=== PATIENT | female | born 1955 | race Caucasian/White ===

== ENCOUNTER 2017-01-09 21:41 | Observation (INO) | payer MEDICARE ==
[2017-01-09] MEDS ORDERED: ASPIRIN 81 MG CHEW PO STA (21:59)
[2017-01-09] MEDS ORDERED: KETOROLAC 30 MG/ML 1 ML VIAL IVP STA (22:02)
--- NOTE | 2017-01-09 22:06 | ED ---
Chest Pain HPI - General Chief Complaint: Chest Pain Stated Complaint: chest pain Time Seen by Provider: 01/09/17 21:49 Source: patient, family, RN notes reviewed Mode of arrival: ambulatory Limitations: no limitations - History of Present Illness Initial Comments: Is a 61-year-old female with a prior history of suspected heart disease who does use nitroglycerin on occasion and states she had the onset yesterday about 12 noon of chest pain. She states was midsternal and nonradiating did recur today she did take some nitroglycerin and it did help. She currently states is pain-free when she had the pain was 10/10 in severity. She denies cough fevers chills nausea vomiting sweats or other symptoms right now. The patient also states that she follow through his ago she does have right-sided neck pain and left shoulder pain. She does not believe this is same pain. MD Complaint: chest pain, other - Related Data Home Medications Medication Instructions Recorded Confirmed Levothyroxine Sodium [Synthroid] 50 mcg PO QAM 06/01/15 01/09/17 Metoprolol Succinate (ER) [Toprol 12.5 mg PO QAM 06/01/15 01/09/17 XL] Omeprazole [PriLOSEC] 20 mg PO 1200 06/01/15 01/09/17 Sertraline [Zoloft] 200 mg PO QAM 06/01/15 01/09/17 Trihexyphenidyl HCl 2 mg PO HS 06/01/15 01/09/17 Fenofibrate [Lofibra] 160 mg PO QAM 10/22/15 01/09/17 Haloperidol [Haldol] 2.5 mg PO BID 10/22/15 01/09/17 LORazepam [Ativan] 1 mg PO TID 10/22/15 01/09/17 buPROPion SR [Wellbutrin SR] 150 mg PO BID 10/22/15 01/09/17 Paliperidone [Paliperidone ER] 6 mg PO QAM 03/17/16 01/09/17 Previous Rx's Medication Instructions Recorded Hydrocodone/Acetaminophen [[place] 1 each PO Q6HR PRN #15 tab 01/21/16 5-325] Ibuprofen [Motrin] 600 mg PO Q6HR PRN #20 tab 01/21/16 Allergies Allergy/AdvReac Type Severity Reaction Status Date / Time codeine Allergy Unknown Verified 01/09/17 21:47 Sulfa (Sulfonamide Allergy Unknown Verified 01/09/17 21:47 Antibiotics) sulfamethoxazole Allergy Unknown Verified 01/09/17 21:47 [From Bactrim] thioridazine [From Mellaril] Allergy Unknown Verified 01/09/17 21:48 trimethoprim [From Bactrim] Allergy Unknown Verified 01/09/17 21:47 Review of Systems ROS Statement: Those systems with pertinent positive or pertinent negative responses have been documented in the HPI. ROS Other: All systems not noted in ROS Statement are negative. EKG Findings - EKG Results: EKG: interpreted by ERMD, sinus rhythm (Sinus rhythm rate of 84. 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.NEUROPATHY; last seizure 5 years ago, has CPAP machine but does not use History of Any Multi-Drug Resistant Organisms: None Reported Past Surgical History: Section Additional Past Surgical History / Comment(s): Sx: nasal Past Anesthesia/Blood Transfusion Reactions: Motion Sickness Past Psychological History: ADD/ADHD, Anxiety, Bipolar, Depression, Panic Disorder, PTSD, Schizoaffective Disorder Smoking Status: Never smoker Past Alcohol Use History: Rare Past Drug Use History: None Reported - Past Family History Father Family Medical History: CVA/TIA Additional Family Medical History / Comment(s): SMOKED AND USED ETOH- AGE 78 - FROM STROKE Mother Additional Family Medical History / Comment(s): CRONIC BRONCHITIS.REMOVED PART OF ONE LUNG d/t the bronchitis infection General Exam - General Exam Comments Initial Comments: This a well-developed well-nourished awake alert anxious appearing female Limitations: no limitations General appearance: alert, anxious Head exam: Present: atraumatic, normocephalic, normal inspection Eye exam: Present: normal appearance, PERRL, EOMI. Absent: scleral icterus, conjunctival injection, periorbital swelling ENT exam: Present: normal exam, mucous membranes moist Neck exam: Present: normal inspection. Absent: tenderness, meningismus, lymphadenopathy Respiratory exam: Present: normal lung sounds bilaterally, chest wall tenderness. Absent: respiratory distress, wheezes, rales, rhonchi, stridor Cardiovascular Exam: Present: regular rate, normal rhythm, normal heart sounds. Absent: systolic murmur, diastolic murmur, rubs, gallop, clicks GI/Abdominal exam: Present: soft, normal bowel sounds. Absent: distended, tenderness, guarding, rebound, rigid Extremities exam: Present: normal inspection, full ROM, normal capillary refill. Absent: tenderness, pedal edema, joint swelling, calf tenderness Back exam: Present: normal inspection Neurological exam: Present: alert, oriented X3, CN II-XII intact Psychiatric exam: Present: normal affect, normal mood Skin exam: Present: warm, dry, intact, normal color. Absent: rash Course Vital Signs 01/09/17 01/09/17 21:44 23:11 Temperature 97.8 F Pulse Rate 86 79 Respiratory 20 16 Rate Blood Pressure 134/76 133/74 O2 Sat by Pulse 95 98 Oximetry - Reevaluation(s) Reevaluation #1: 01/09/17 23:29 Patient states her chest pain is not return when she still has some body pain. Chest Pain MDM - MDM Imaging study shows no acute findings. I did discuss the findings with patient family patient be admitted for evaluation of chest pain Critical Care Time Critical Care Time: Yes Critical Care Time: 31 minutes of critical care time which includes initial presentation with history physical lab and x-ray orders evaluation same. Reevaluation patient several occasions to responsive therapy and review of old charting that was available discussion with the patient family members discussion with the admitting service documentation and admission orders. Disposition Clinical Impression: Chest pain, Unstable angina pectoris Disposition: ADMITTED IP TO THIS [facility] Condition: Stable
[2017-01-09 22:20] LABS: Basophils # (A) 0.1 k/uL (0-0.2); Basophils % (A) 1 %; CH 27.4; CHCM 33.4; Eosinophils # (A) 0.2 k/uL (0-0.7); Eosinophils % (A) 2 %; HCT 39.6 % (34.0-46.0); HDW 2.92; HGB 12.8 gm/dL (11.4-16.0); Luc # (Auto) 0.29; Luc % (Auto) 4; Lymphocytes # (A) 2.8 k/uL (1.0-4.8); Lymphocytes % (A) 37 %; MCH 26.7 pg (25.0-35.0); MCHC 32.4 g/dL (31.0-37.0); MCV 82.5 fL (80.0-100.0); Mean Platelet Volume 6.8; Monocytes # (A) 0.4 k/uL (0-1.0); Monocytes % (A) 5 %; Neutrophils # (A) 3.9 k/uL (1.3-7.7); Neutrophils % (A) 52 %; RDW 12.7 % (11.5-15.5); WBC 7.6 k/uL (3.8-10.6); WBC (Perox) 8.02
[2017-01-09 22:31] LABS: Calcium 9.6 mg/dL (8.4-10.2); Magnesium 2.1 mg/dL (1.6-2.3); Potassium 4.4 mmol/L (3.5-5.1); Total Bilirubin 0.5 mg/dL (0.2-1.3); Total Protein 6.6 g/dL (6.3-8.2)
[2017-01-09 22:33] LABS: INR 1.1 (<1.1); Partial Thromboplastin Time 24.5 sec (22.0-30.0); Prothrombin Time 10.7 sec (9.0-12.0)
[2017-01-09 22:48] LABS: Creatine Kinase 120 U/L (30-135)
--- NOTE | 2017-01-09 22:54 | XR ---
EXAM: XR Cervical Spine, 4 or 5 Views. CLINICAL HISTORY: Reason: Pain TECHNIQUE: Frontal, lateral and oblique views of the cervical spine. COMPARISON: No relevant prior studies available. FINDINGS: Vertebrae: Mild C4-C5 anterolisthesis of approximately 2.5 mm. Cervical vertebral body height and alignment are otherwise within normal limits. Mild C6-7 spondylosis. No evidence of fracture or dislocation. Disc spaces: Mild C6-7 spondylosis. Soft tissues: Unremarkable. IMPRESSION: Mild C4-C5 anterolisthesis. Lower cervical spondylosis. No fracture or dislocation identified.
[2017-01-09 23:01] LABS: Creatine Kinase MB 1.6 ng/mL (0.0-2.4); Troponin I <0.012 ng/mL (0.000-0.034)
--- NOTE | 2017-01-09 23:15 | XR ---
EXAM: XR Chest, 2 Views. CLINICAL HISTORY: Reason: Chest Pain TECHNIQUE: Frontal and lateral views of the chest. COMPARISON: Chest radiographs 10/22/2015 FINDINGS: Lungs: Lungs are clear. Pleural space: Unremarkable. No pneumothorax. Heart: Unremarkable. No cardiomegaly. Mediastinum: Unremarkable. Bones/joints: Unremarkable. IMPRESSION: No evidence of active chest disease. No significant change since 10/22/2015.
[2017-01-09] MEDS ORDERED: HEPARIN SODIUM,PORCINE 5,000 UNIT/ML 1 ML VIAL IV ONE (23:33)
[2017-01-09] MEDS ORDERED: NITROGLYCERIN SL TABS 0.4 MG TAB SUBLINGUAL PRN (23:33)
[2017-01-09] MEDS ORDERED: IBUPROFEN 600 MG TAB PO PRN (23:36)
[2017-01-09] MEDS ORDERED: SODIUM CHLORIDE 0.9% 1,000 ML IV SCH (23:45)
[2017-01-10] MEDS: HEPARIN SODIUM,PORCINE/D5W PMX 25,000 UNIT in DEXTROSE/WATER 1 500ML.BAG IV SCH (00:23)
[2017-01-10] MEDS: HYDROcodone/APAP 5-325MG 1 EACH TAB PO PRN ×3 (00:32→16:16)
[2017-01-10 01:24] VITALS: BMI 33.5
[2017-01-10 02:56] LABS: Creatine Kinase 114 U/L (30-135)
[2017-01-10 03:07] LABS: Cholesterol 130 mg/dL (<200); HDL Cholesterol 57 mg/dL (40-60); Triglycerides 111 mg/dL (<150)
[2017-01-10 03:09] LABS: Creatine Kinase MB 1.5 ng/mL (0.0-2.4); Troponin I <0.012 ng/mL (0.000-0.034)
[2017-01-10] MEDS: NITROGLYCERIN OINT 1 INCH/GM PACKET TOPICAL SCH ×2 (04:15→06:21)
[2017-01-10] MEDS: LEVOTHYROXINE 50 MCG TAB PO SCH (06:24)
[2017-01-10] MEDS ORDERED: HALOPERIDOL 5 MG TAB PO SCH (09:00)
[2017-01-10] MEDS ORDERED: SERTRALINE 100 MG TAB PO SCH (09:00)
[2017-01-10] MEDS ORDERED: PALIPERIDONE 6 MG TAB.ER.24 PO SCH (09:00)
[2017-01-10] MEDS ORDERED: buPROPion SR 150 MG TABLET.ER PO SCH (09:00)
--- NOTE | 2017-01-10 09:07 | P.CRDCN ---
History of Present Illness Consult date: 01/10/17 Requesting physician: Ángel Travis Consult reason: chest pain Chief complaint: Chest pain History of present illness: This is a 61-year-old female with history of hypertension, hyperlipidemia, GERD, seizure disorder, sleep apnea, hypothyroidism, depression and bipolar disorder, occasional EtOH use, she presents to the hospital with symptoms of chest pain. According to the patient over the past couple of months she's been experiencing intermittent pain which she describes as sharp poking sensations in the center of her chest. She denies any associated shortness of breath, no nausea, no diaphoresis. She does state that she takes nitroglycerin for the pain, with relief. Patient was in the hospital 2 years ago in October 2015 at which time she underwent a dobutamine echocardiographic study which was negative for any reversible ischemia. Echocardiogram with Doppler study performed at that time revealed a normal left ventricular systolic function. EKG on arrival here shows a normal sinus rhythm with inferior lateral T-wave inversion, it was noted on prior EKGs that the patient had similar T-wave changes. Laboratory data was reviewed, CBC normal, d-dimer negative. Potassium 4.4, creatinine 1.2, troponins have been negative 2, cholesterol 1:30, triglycerides 111, LDL 51 and HDL 57. Chest x-ray did not reveal any evidence of acute disease. Cervical spine x-ray also performed which did not reveal any evidence of fracture or dislocation. Blood pressure 108/60 with heart rate in the 80s, afebrile. Time of my examination this morning, patient is currently chest pain-free. 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.NEUROPATHY; last seizure 5 years ago, has CPAP machine but does not use History of Any Multi-Drug Resistant Organisms: None Reported Past Surgical History: Section Additional Past Surgical History / Comment(s): Sx: nasal Past Anesthesia/Blood Transfusion Reactions: Motion Sickness Past Psychological History: ADD/ADHD, Anxiety, Bipolar, Depression, Panic Disorder, PTSD, Schizoaffective Disorder Smoking Status: Never smoker Past Alcohol Use History: Rare Past Drug Use History: None Reported - Past Family History Father Family Medical History: CVA/TIA Additional Family Medical History / Comment(s): SMOKED AND USED ETOH- AGE 78 - FROM STROKE Mother Additional Family Medical History / Comment(s): CRONIC BRONCHITIS.REMOVED PART OF ONE LUNG d/t the bronchitis infection Medications and Allergies Home Medications Medication Instructions Recorded Confirmed Type Levothyroxine Sodium [Synthroid] 50 mcg PO QAM 06/01/15 01/09/17 History Metoprolol Succinate (ER) [Toprol 12.5 mg PO QAM 06/01/15 01/09/17 History XL] Omeprazole [PriLOSEC] 20 mg PO 1200 06/01/15 01/09/17 History Sertraline [Zoloft] 200 mg PO QAM 06/01/15 01/09/17 History Trihexyphenidyl HCl 2 mg PO HS 06/01/15 01/09/17 History Fenofibrate [Lofibra] 160 mg PO QAM 10/22/15 01/09/17 History Haloperidol [Haldol] 2.5 mg PO BID 10/22/15 01/09/17 History LORazepam [Ativan] 1 mg PO TID 10/22/15 01/09/17 History buPROPion SR [Wellbutrin SR] 150 mg PO BID 10/22/15 01/09/17 History Paliperidone [Paliperidone ER] 6 mg PO QAM 03/17/16 01/09/17 History Allergies Allergy/AdvReac Type Severity Reaction Status Date / Time codeine Allergy Unknown Verified 01/09/17 21:47 Sulfa (Sulfonamide Allergy Unknown Verified 01/09/17 21:47 Antibiotics) sulfamethoxazole Allergy Unknown Verified 01/09/17 21:47 [From Bactrim] thioridazine [From Mellaril] Allergy Unknown Verified 01/09/17 21:48 trimethoprim [From Bactrim] Allergy Unknown Verified 01/09/17 21:47 Physical Exam Vitals: Vital Signs Temp Pulse Resp BP Pulse Ox 01/10/17 08:00 98.6 F 80 16 107/51 97 01/10/17 04:00 98.1 F 80 18 127/78 97 01/10/17 01:28 74 18 01/10/17 01:18 98 F 80 18 132/86 95 Intake and Output 01/09/17 01/10/17 01/10/17 22:59 06:59 14:59 Other: # Voids 2 1 Weight 97.069 kg PHYSICAL EXAMINATION: HEENT: Head is atraumatic, normocephalic. Pupils equal, round. Neck is supple. There is no elevated jugular venous pressure. HEART EXAMINATION: Heart S1, S2 normal. No murmur or gallop heard. CHEST EXAMINATION: Lungs are clear to auscultation and precussion. No chest wall tenderness is noted on palpation or with deep breathing. ABDOMEN: Soft, nontender. Bowel sounds are heard. No organomegaly noted. EXTREMITIES: 2+ peripheral pulses with no evidence of peripheral edema and no calf tenderness noted. NEUROLOGIC patient is awake, alert and oriented -3. . Results 01/09/17 21:05 01/09/17 21:05 Cardiac Enzymes 01/10/17 Range/Units 02:18 CK-MB (CK-2) 1.5 (0.0-2.4) ng/mL Troponin I <0.012 (0.000-0.034) ng/mL Coagulation 01/10/17 Range/Units 06:27 APTT 54.0 H (22.0-30.0) sec Lipids 01/10/17 Range/Units 02:18 Triglycerides 111 (<150) mg/dL Cholesterol 130 (<200) mg/dL HDL Cholesterol 57 (40-60) mg/dL Current Medications Generic Name Dose Route Start Last Admin Trade Name Freq PRN Reason Stop Dose Admin Hydrocodone Bitart/Acetaminophen 1 each 01/09/17 23:36 01/10/17 08:15 [place] 5-325 PO 1 each Q6HR PRN Administration Pain Aspirin 325 mg 01/10/17 09:00 Aspirin PO DAILY JUANITO Bupropion HCl 150 mg 01/10/17 09:00 Wellbutrin Sr PO BID JUANITO Fenofibrate 160 mg 01/10/17 09:00 Lofibra PO QAM JUANITO Haloperidol 2.5 mg 01/10/17 09:00 Haldol PO BID JUANITO Heparin Sodium/Dextrose 25,000 500 mls @ 23.29 mls/hr 01/09/17 23:45 00:23 unit/ IV Solution IV 12 units/kg/hr .[id number] JUANITO 23.3 mls/hr Protocol Administration 12 UNITS/KG/HR Sodium Chloride 1,000 mls @ 20 mls/hr 01/09/17 23:45 01/10/17 00:05 Saline 0.9% IV 20 mls/hr .Q24H JUANITO Administration Ibuprofen 600 mg 01/09/17 23:36 Motrin PO Q6HR PRN For pain Levothyroxine Sodium 50 mcg 01/10/17 06:30 01/10/17 06:24 Synthroid PO Not Given DAILY@0630 [facility] Lorazepam 1 mg 01/10/17 09:00 Ativan PO TID JUANITO Metoprolol Succinate 12.5 mg 01/10/17 09:00 Toprol Xl PO QAM [facility] Nitroglycerin 1 inch 01/10/17 00:00 01/10/17 06:21 Nitro-Bid Oint TOPICAL Not Given Q6HR [facility] Nitroglycerin 0.4 mg 01/09/17 23:33 Nitrostat SUBLINGUAL Q5M PRN Chest Pain Paliperidone 6 mg 01/10/17 09:00 Invega PO QAM JUANITO Pantoprazole Sodium 40 mg 01/10/17 12:00 Protonix PO 1200 JUANITO Sertraline HCl 200 mg 01/10/17 09:00 Zoloft PO QAM JUANITO Trihexyphenidyl HCl 2 mg 01/10/17 21:00 Artane PO HS JUANITO Intake and Output 01/09/17 01/10/17 01/10/17 22:59 06:59 14:59 Other: # Voids 2 1 Weight 97.069 kg EKG Interpretations (text) EKG shows normal sinus rhythm with inferior lateral T-wave inversion Assessment and Plan Plan: Assessment and plan #1 atypical chest discomfort, troponins negative 2. EKG shows normal sinus rhythm with inferior lateral T-wave inversion, similar to prior EKGs. #2 hypertension #3 hypothyroidism #4 sleep apnea #5 seizure disorder #6 hyperlipidemia #7 GERD Plan We will obtain an echocardiogram with Doppler study. We will also request one further troponin value, if negative, discontinue IV heparin. Discontinue Nitropaste and start the patient on Imdur 30 mg daily. We will schedule the patient for dobutamine echocardiographic study tomorrow, based on further recommendations will be made. Further recommendations to follow. DNP note has been reviewed, I agree with a documented findings and plan of care. Patient was seen and examined.
[2017-01-10] MEDS: ASPIRIN 325 MG TAB PO SCH (09:43)
[2017-01-10] MEDS: LORazepam 1 MG TAB PO SCH ×3 (09:43→21:46)
[2017-01-10] MEDS: METOPROLOL SUCCINATE (ER) 25 MG TAB.ER.24H PO SCH (09:43)
[2017-01-10] MEDS: FENOFIBRATE 160 MG TAB PO SCH (09:43)
[2017-01-10 09:51] LABS: Creatine Kinase 93 U/L (30-135)
[2017-01-10 10:03] LABS: Creatine Kinase MB 1.3 ng/mL (0.0-2.4); Troponin I <0.012 ng/mL (0.000-0.034)
[2017-01-10] MEDS: ISOSORBIDE MONONITRATE ER 30 MG TAB.ER.24H PO SCH (11:20)
[2017-01-10] MEDS ORDERED: PANTOPRAZOLE 40 MG TABLET PO SCH (12:00)
[2017-01-10] MEDS: ESCITALOPRAM 10 MG TAB PO SCH (16:14)
[2017-01-10] MEDS: MELOXICAM 7.5 MG TAB PO SCH (16:15)
--- NOTE | 2017-01-10 17:03 | P.HPIM ---
History of Present Illness H&P Date: 01/10/17 Ms. Ayala 61-year-old female with history of schizoaffective disorder hypertension, dyslipidemia, history of seizure disorder comes in to the hospital with complaints of chest pain that has been ongoing for about 1 week. Patient state the pain is midsternal last about a minute no alleviating or exacerbating factors prior to admission. Patient states that she attributes some to stressors at home. Patient states that her last stress test was in 2014 at that time underwent a dobutamine echocardiogram. Patient has recently had some new medication changes after being seen by Dr. Godfrey on the outpatient basis for her psychiatric illness. During my examination patient fails to make eye contact. States that her pain is improved with nitroglycerin. Thereafter this a.m. patient was started on Imdur and states her pain is completely symptom-free at this time. Denies having any headaches blurry vision nausea vomiting diarrhea urinary urgency or frequency or any flulike symptoms at this time. 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.NEUROPATHY; last seizure 5 years ago, has CPAP machine but does not use History of Any Multi-Drug Resistant Organisms: None Reported Past Surgical History: Section Additional Past Surgical History / Comment(s): Sx: nasal Past Anesthesia/Blood Transfusion Reactions: Motion Sickness Past Psychological History: ADD/ADHD, Anxiety, Bipolar, Depression, Panic Disorder, PTSD, Schizoaffective Disorder Smoking Status: Never smoker Past Alcohol Use History: Rare Past Drug Use History: None Reported - Past Family History Father Family Medical History: CVA/TIA Additional Family Medical History / Comment(s): SMOKED AND USED ETOH- AGE 78 - FROM STROKE Mother Additional Family Medical History / Comment(s): CRONIC BRONCHITIS.REMOVED PART OF ONE LUNG d/t the bronchitis infection Medications and Allergies Home Medications Medication Instructions Recorded Confirmed Type Levothyroxine Sodium [Synthroid] 50 mcg PO QAM 06/01/01/10/17 History Metoprolol Succinate (ER) [Toprol 12.5 mg PO QAM 06/01/15 01/10/17 History XL] Omeprazole [PriLOSEC] 20 mg PO DAILY 06/01/15 01/10/17 History Trihexyphenidyl HCl 2 mg PO BID 06/01/15 01/10/17 History Fenofibrate [Lofibra] 160 mg PO QAM 10/22/15 01/10/17 History LORazepam [Ativan] 1 mg PO TID 10/22/15 01/10/17 History Ciclopirox [[place]] 1 applic TOPICAL DAILY PRN 01/10/17 01/10/17 History Escitalopram [Lexapro] 30 mg PO DAILY 01/10/17 01/10/17 History Haloperidol [Haldol] 6 mg PO HS 01/10/17 01/10/17 History Meloxicam [Mobic] 7.5 mg PO DAILY 01/10/17 01/10/17 History buPROPion HCL [Wellbutrin XL] 300 mg PO QAM 01/10/17 01/10/17 History Allergies Allergy/AdvReac Type Severity Reaction Status Date / Time codeine Allergy Unknown Verified 01/09/17 21:47 Sulfa (Sulfonamide Allergy Unknown Verified 01/09/17 21:47 Antibiotics) sulfamethoxazole Allergy Unknown Verified 01/09/17 21:47 [From Bactrim] thioridazine [From Mellaril] Allergy Unknown Verified 01/09/17 21:48 trimethoprim [From Bactrim] Allergy Unknown Verified 01/09/17 21:47 Physical Exam Vitals: Vital Signs Temp Pulse Resp BP Pulse Ox 01/10/17 16:00 98.8 F 96 16 130/71 97 01/10/17 11:53 98.9 F 83 14 143/75 96 01/10/17 09:04 97 01/10/17 08:00 98.6 F 80 18 107/51 97 01/10/17 04:00 98.1 F 80 18 127/78 97 01/10/17 01:28 74 18 01/10/17 01:18 98 F 80 18 132/86 95 Intake and Output 01/10/17 01/10/17 01/10/17 06:59 14:59 22:59 Intake Total 440 Balance 440 Intake: Oral 440 Other: Voiding Method Toilet # Voids 2 1 Weight 97.069 kg Physical exam Gen. appearance oriented 3 in no distress Neck is supple no JVD Lungs good air entry clear to auscultation no rhonchi or wheezing Heart S1-S2 heard regular rate and rhythm no murmurs appreciated Abdomen is soft nontender no organomegaly bowel sounds are intact Neurologically cranial nerves II-12 grossly intact no focal motor or sensory deficits noted Skin no abnormalities appreciated Results CBC & Chem 7: 01/09/17 21:05 01/09/17 21:05 Labs: Abnormal Lab Results - Last 24 Hours (Table) 01/10/17 Range/Units 06:27 APTT 54.0 H (22.0-30.0) sec Thrombosis Risk Factor Assmnt - Choose All That Apply Each Factor Represents 1 point: Heart failure (<1month), Obesity (BMI >25) Thrombosis Risk Factor Assessment Total Risk Factor Score: 2 Thrombosis Risk Factor Assessment Level: Low Risk Assessment and Plan Plan: #1 atypical chest pain rule out ACS #2 history of seizure disorder #3 schizoaffective disorder #4 hypertension #5 dyslipidemia #6 GERD #7 secondhand smoke exposure #8 hypothyroidism Plan patient is to undergo a stress test in the a.m. If negative patient can be discharged home thereafter. Patient's questions were answered in regards to her use of Imdur. EKG didn't reveal chronic T-wave changes in the inferior leads.
[2017-01-10] MEDS ORDERED: HALOPERIDOL 1 MG TAB PO SCH (21:00)
[2017-01-10] MEDS ORDERED: TRIHEXYPHENIDYL 2 MG TAB PO SCH (21:00)
[2017-01-10] MEDS: TRIHEXYPHENIDYL 2 MG TAB PO SCH (21:46)
[2017-01-11] MEDS: LEVOTHYROXINE 50 MCG TAB PO SCH (06:54)
[2017-01-11] MEDS ORDERED: DOBUTamine DRIP for NUC MED 500 MG in DEXTROSE/WATER 1 250ML.BAG IV ONE (08:00)
[2017-01-11] MEDS: HEPARIN SODIUM,PORCINE/D5W PMX 25,000 UNIT in DEXTROSE/WATER 1 500ML.BAG IV SCH (08:12)
[2017-01-11] MEDS: ASPIRIN 325 MG TAB PO SCH (08:59)
[2017-01-11] MEDS ORDERED: buPROPion XL 300 MG TAB.ER.24H PO SCH (09:00)
--- NOTE | 2017-01-11 10:29 | ECHOS ---
DATE OF SERVICE: 01/11/2017 AGE: 61Y SEX: F HT: 67" WT: 214 lbs. Protocol Flip: Others: Dobutamine Stress Echo Stage: 4 Dur. of Exercise: 10:10 *Heart Rate Blood Pressure *Rest: 78 Rest: 198/83 * *Max. Achieved: 136 Maximum BP: 212/99 85% PMHR: 137 100% PMHR: 161 *METS: - INDICATIONS: Chest pain. MEDICATIONS: - Baseline EKG shows sinus rhythm with nonspecific inferolateral ST-T wave changes. Patient was given intravenous dobutamine over a period of 10 minutes as per protocol. Patient attained 84% of predicted maximal heart rate without chest pain or diagnostic ST segment depression. Baseline echo shows normal left ventricular size, wall motion and systolic function. A contrast agent was used to enhance endocardial visualization. Post dobutamine infusion, there is normal hyperdynamic response of all segments of myocardium noted. CONCLUSION: 1. Inconclusive EKG part of the stress test due to baseline EKG abnormalities. 2. Negative dobutamine echo.
[2017-01-11] MEDS: ESCITALOPRAM 10 MG TAB PO SCH (10:33)
[2017-01-11] MEDS: METOPROLOL SUCCINATE (ER) 25 MG TAB.ER.24H PO SCH (10:34)
[2017-01-11] MEDS: FENOFIBRATE 160 MG TAB PO SCH (10:35)
[2017-01-11] MEDS: MELOXICAM 7.5 MG TAB PO SCH (10:35)
[2017-01-11] MEDS: ISOSORBIDE MONONITRATE ER 30 MG TAB.ER.24H PO SCH (10:37)
[2017-01-11] MEDS: LORazepam 1 MG TAB PO SCH (10:37)
[2017-01-11] MEDS: TRIHEXYPHENIDYL 2 MG TAB PO SCH (10:38)
[2017-01-11 12:12] VITALS: BP 117/72; PULSE 85; RESP 16; TEMP 99.2
--- NOTE | 2017-01-11 18:10 | P.DS ---
Providers Date of admission: 01/09/17 23:33 Attending physician: Ángel Travis MD Primary care physician: [facility] Course: Ms. Ayala 61-year-old female with history of schizoaffective disorder hypertension, dyslipidemia, history of seizure disorder comes in to the hospital with complaints of chest pain that has been ongoing for about 1 week. Patient state the pain is midsternal last about a minute no alleviating or exacerbating factors prior to admission. Patient states that she attributes some to stressors at home. Patient states that her last stress test was in 2014 at that time underwent a dobutamine echocardiogram. Patient has recently had some new medication changes after being seen by Dr. Godfrey on the outpatient basis for her psychiatric illness. During my examination patient fails to make eye contact. States that her pain is improved with nitroglycerin. Thereafter this a.m. patient was started on Imdur and states her pain is completely symptom-free at this time. Denies having any headaches blurry vision nausea vomiting diarrhea urinary urgency or frequency or any flulike symptoms at this time. 01/11/2017 Patient did not have any complaints of chest pain. Underwent stress is which was negative. Physical exam Gen. appearance oriented 3 in no distress Neck is supple no JVD Lungs good air entry clear to auscultation no rhonchi or wheezing Heart S1-S2 heard regular rate and rhythm no murmurs appreciated Abdomen is soft nontender no organomegaly bowel sounds are intact Neurologically cranial nerves II-12 grossly intact no focal motor or sensory deficits noted Skin no abnormalities appreciated R Assessment and Plan Plan: #1 atypical chest pain rule out ACS #2 history of seizure disorder #3 schizoaffective disorder #4 hypertension #5 dyslipidemia #6 GERD #7 secondhand smoke exposure #8 hypothyroidism Imdur will be prescribed. Patient however stated to have some chest pain is recommended take Tylenol if needed. Stress test was negative. Thereafter will be discharged home. Patient is to follow-up on outpatient basis. Patient Condition at Discharge: Stable Plan - Discharge Summary New Discharge Prescriptions: Isosorbide Mononitrate ER [Imdur] 30 mg PO DAILY #30 tab.er.24h Discharge Medication List Levothyroxine Sodium [Synthroid] 50 mcg PO QAM 06/01/15 [History] Metoprolol Succinate (ER) [Toprol XL] 12.5 mg PO QAM 06/01/15 [History] Omeprazole [PriLOSEC] 20 mg PO DAILY 06/01/15 [History] Trihexyphenidyl HCl 2 mg PO BID 06/01/15 [History] Fenofibrate [Lofibra] 160 mg PO QAM 10/22/15 [History] LORazepam [Ativan] 1 mg PO TID 10/22/15 [History] Ciclopirox [Penlac] 1 applic TOPICAL DAILY PRN 01/10/17 [History] Escitalopram [Lexapro] 30 mg PO DAILY 01/10/17 [History] Haloperidol [Haldol] 6 mg PO HS 01/10/17 [History] Meloxicam [Mobic] 7.5 mg PO DAILY 01/10/17 [History] buPROPion HCL [Wellbutrin XL] 300 mg PO QAM 01/10/17 [History] Isosorbide Mononitrate ER [Imdur] 30 mg PO DAILY #30 tab.er.24h 01/11/17 [Rx] Follow up Appointment(s)/Referral(s): Rosalba Barr III, MD [Primary Care Provider] - 1-2 days Melecio Alvarez MD [STAFF PHYSICIAN] - 1 Week Patient Instructions/Handouts: Chest Pain (DC) Discharge Disposition: HOME SELF-CARE
[2017-01-11] MEDS ORDERED: HALOPERIDOL 2 MG TAB PO SCH (21:00)
--- NOTE | 2017-01-19 09:38 | ECHOF ---
Referral Reason:chest pain MEASUREMENTS -------- HEIGHT: 170.2 cm WEIGHT: 97.1 kg BP: 118/70 RVIDd: 2.8 cm (< 3.3) IVSd: 1.1 cm (0.6 - 1.1) LVIDd: 3.6 cm (3.9 - 5.3) LVPWd: 1.1 cm (0.6 - 1.1) IVSs: 1.3 cm LVIDs: 2.5 cm LVPWs: 1.6 cm LAESV Index (A-L): 11.24 ml/m Ao Diam: 2.7 cm (2.0 - 3.7) AV Cusp: 1.6 cm (1.5 - 2.6) LA Diam: 3.2 cm (2.7 - 3.8) MV EXCURSION: 13.883 mm (> 18.000) MV EF SLOPE: 95 mm/s (70 - 150) EPSS: 0.3 cm MV E Jonathon: 0.55 m/s MV DecT: 220 ms MV A Jonathon: 0.90 m/s MV E/A Ratio: 0.61 RAP: 5.00 mmHg RVSP: 30.88 mmHg FINDINGS -------- Sinus rhythm. This was a technically adequate study. There is borderline concentric left ventricular hypertrophy. Overall left ventricular systolic function is normal with, an EF between 55 - 60 %. The right ventricle is normal in size. The left atrial size is normal. The right atrium is normal in size. 1.5mg of Definity was utilized for enhancement of images The aortic valve is trileaflet and appears structurally normal. Mild mitral annular calcification present. Mild tricuspid regurgitation present. Right ventricular systolic pressure is normal at < 35 mmHg. Pulmonic valve appears structurally normal. The aortic root size is normal. IVC Not well visulized. Echo free space may represent effusion or a pericardial fat pad. CONCLUSIONS -------- 1. Sinus rhythm. 2. Mild mitral annular calcification present. 3. Mild tricuspid regurgitation present. 4. Right ventricular systolic pressure is normal at < 35 mmHg. 5. Pulmonic valve appears structurally normal. 6. The aortic root size is normal. 7. IVC Not well visulized. 8. Echo free space may represent effusion or a pericardial fat pad. 9. This was a technically adequate study. 10. There is borderline concentric left ventricular hypertrophy. 11. Overall left ventricular systolic function is normal with, an EF between 55 - 60 %. 12. The right ventricle is normal in size. 13. The left atrial size is normal. 14. The right atrium is normal in size. 15. 1.5mg of Definity was utilized for enhancement of images 16. The aortic valve is trileaflet and appears structurally normal. DIGITAL PRODUCTION ARTIST: Yashira Jerome RDCS
== END 2017-01-11 14:52 | disposition home or self-care (01) ==
LOC: EC 21:41 → 3OBS 23:33
PROVIDERS: ADMIT Internal Medicine; ATTEND Internal Medicine
DX: R07.89 Other chest pain (principal); G40.909 Epilepsy, unspecified, not intractable, without status epilepticus; F25.9 Schizoaffective disorder, unspecified; I10 Essential (primary) hypertension; E78.5 Hyperlipidemia, unspecified; K21.9 Gastro-esophageal reflux disease without esophagitis; E03.9 Hypothyroidism, unspecified; Z77.22 Contact with and (suspected) exposure to environmental tobacco smoke (acute) (chronic); G47.30 Sleep apnea, unspecified; Z99.89 Dependence on other enabling machines and devices; F41.9 Anxiety disorder, unspecified; F31.9 Bipolar disorder, unspecified; F43.10 Post-traumatic stress disorder, unspecified; F41.0 Panic disorder [episodic paroxysmal anxiety]; Z79.899 Other long term (current) drug therapy; Z88.5 Allergy status to narcotic agent; Z88.2 Allergy status to sulfonamides; Z88.8 Allergy status to other drugs, medicaments and biological substances; Z82.3 Family history of stroke; Z82.5 Family history of asthma and other chronic lower respiratory diseases
CPT/HCPCS: 99291; 96375; 96376; 96366; 96365; 36415; 94760; 93005; 93017; 85379; 83880; 80061; 80053; 82150; 82550 ×2; 82553 ×2; 83690; 83735; 84484 ×2; 85025; 85610; 85730 ×2; 71020; 72050; G0378 ×3; C8928; C8929; J1250; J1644 ×2; S0106; J1885; Q9957; 93306; 93350

== ENCOUNTER 2017-05-25 20:45 | Emergency (ER) | payer MEDICARE ==
[2017-05-25] MEDS ORDERED: ASPIRIN 81 MG CHEW PO STA (21:10)
[2017-05-25] MEDS ORDERED: traMADol 50 MG TAB PO STA (21:18)
[2017-05-25 21:23] LABS: Basophils # (A) 0.1 k/uL (0-0.2); Basophils % (A) 1 %; CH 26.7; CHCM 33.2; Eosinophils # (A) 0.2 k/uL (0-0.7); Eosinophils % (A) 3 %; HCT 39.3 % (34.0-46.0); HDW 2.96; HGB 12.8 gm/dL (11.4-16.0); Luc # (Auto) 0.16; Luc % (Auto) 2; Lymphocytes # (A) 3.6 k/uL (1.0-4.8); Lymphocytes % (A) 43 %; MCH 26.4 pg (25.0-35.0); MCHC 32.6 g/dL (31.0-37.0); Mean Platelet Volume 7.1; Monocytes # (A) 0.3 k/uL (0-1.0); Monocytes % (A) 3 %; Neutrophils % (A) 48 %; RBC 4.85 m/uL (3.80-5.40); WBC 8.3 k/uL (3.8-10.6); WBC (Perox) 7.93
--- NOTE | 2017-05-25 21:32 | XR ---
EXAMINATION TYPE: XR chest 2V DATE OF EXAM: 05/25/2017 COMPARISON: 01/09/2017 HISTORY: Chest pain TECHNIQUE: Frontal and lateral views of the chest are obtained. FINDINGS: There is no heart failure nor confluent pneumonic infiltrate. Costophrenic angles are bryant r. Heart and mediastinum appear normal. There are chest leads. Bony thorax is intact. IMPRESSION: Normal chest. No change.
[2017-05-25 21:33] LABS: Calcium 9.4 mg/dL (8.4-10.2); Magnesium 2.1 mg/dL (1.6-2.3); Potassium 4.2 mmol/L (3.5-5.1); Total Bilirubin 0.2 mg/dL (0.2-1.3); Total Protein 6.3 g/dL (6.3-8.2)
[2017-05-25 21:34] VITALS: RESP 18
[2017-05-25 21:38] LABS: Prothrombin Time 9.8 sec (9.0-12.0)
[2017-05-25 21:46] LABS: Creatine Kinase 143 U/L (30-135)
--- NOTE | 2017-05-25 21:46 | ED ---
Chest Pain HPI - General Chief Complaint: Chest Pain Stated Complaint: Dizzy, Poss blood clot Time Seen by Provider: 05/25/17 21:05 Source: patient Mode of arrival: wheelchair Limitations: no limitations - Related Data Home Medications Medication Instructions Recorded Confirmed Levothyroxine Sodium [Synthroid] 50 mcg PO QAM 06/01/15 05/25/17 Metoprolol Succinate (ER) [Toprol 12.5 mg PO QAM 06/01/15 05/25/17 XL] Omeprazole [PriLOSEC] 20 mg PO DAILY 06/01/15 05/25/17 Trihexyphenidyl HCl 2 mg PO BID 06/01/15 05/25/17 Fenofibrate [Lofibra] 160 mg PO QAM 10/22/15 05/25/17 LORazepam [Ativan] 1 mg PO TID 10/22/15 05/25/17 Ciclopirox [Penlac] 1 applic TOPICAL DAILY PRN 01/10/17 05/25/17 Escitalopram [Lexapro] 30 mg PO DAILY 01/10/17 05/25/17 Haloperidol [Haldol] 2 mg PO TID 01/10/17 05/25/17 Meloxicam [Mobic] 7.5 mg PO DAILY 01/10/17 05/25/17 Aspirin EC [Ecotrin Low Dose] 81 mg PO DAILY 05/25/17 05/25/17 Brexpiprazole [Rexulti] 4 mg PO DAILY 05/25/17 05/25/17 buPROPion XL [Wellbutrin Xl] 150 mg PO DAILY 05/25/17 05/25/17 Previous Rx's Medication Instructions Recorded Isosorbide Mononitrate ER [Imdur] 30 mg PO DAILY #30 tab.er.24h 01/11/17 Allergies Allergy/AdvReac Type Severity Reaction Status Date / Time codeine Allergy Unknown Verified 05/25/17 21:27 Sulfa (Sulfonamide Allergy Unknown Verified 05/25/17 21:27 Antibiotics) sulfamethoxazole Allergy Unknown Verified 05/25/17 21:27 [From Bactrim] thioridazine [From Mellaril] Allergy Unknown Verified 05/25/17 21:27 trimethoprim [From Bactrim] Allergy Unknown Verified 05/25/17 21:27 Review of Systems ROS Statement: Those systems with pertinent positive or pertinent negative responses have been documented in the HPI. ROS Other: All systems not noted in ROS Statement are negative. EKG Findings - EKG Comments: EKG Findings:: The EKG is similar to the comparison EKG from January 2017. - EKG Results: EKG: interpreted by KATHLEEN, sinus rhythm (Rate 78 bpm), normal axis, normal QRS - Blocks, [place], Hypertrophy, ST Abn: Repolarization changes or abnormalities: nonspecific abnormality, ST segment, and/or T wave 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.NEUROPATHY; last seizure 5 years ago, has CPAP machine but does not use History of Any Multi-Drug Resistant Organisms: None Reported Past Surgical History: Section Additional Past Surgical History / Comment(s): Sx: nasal Past Anesthesia/Blood Transfusion Reactions: Motion Sickness Past Psychological History: ADD/ADHD, Anxiety, Bipolar, Depression, Panic Disorder, PTSD, Schizoaffective Disorder Smoking Status: Never smoker Past Alcohol Use History: Rare Past Drug Use History: None Reported - Past Family History Father Family Medical History: CVA/TIA Additional Family Medical History / Comment(s): SMOKED AND USED ETOH- AGE 78 - FROM STROKE Mother Additional Family Medical History / Comment(s): CRONIC BRONCHITIS.REMOVED PART OF ONE LUNG d/t the bronchitis infection General Exam Limitations: no limitations Course Vital Signs 05/25/17 05/25/17 05/25/17 20:48 21:33 22:07 Temperature 98.8 F Pulse Rate 81 90 81 Respiratory 20 18 18 Rate Blood Pressure 158/76 144/78 131/81 O2 Sat by Pulse 96 96 96 Oximetry 05/25/17 05/25/17 05/26/17 22:51 23:30 00:28 Temperature Pulse Rate 76 77 65 Respiratory 18 18 18 Rate Blood Pressure 115/72 132/71 127/70 O2 Sat by Pulse 97 98 96 Oximetry Disposition Clinical Impression: Chest pain, Dermatitis Disposition: HOME SELF-CARE Condition: Fair Instructions: Chest Pain (ED) Referrals: Astrid Nation MD [Primary Care Provider] - 1-2 days
[2017-05-25] MEDS ORDERED: NITROGLYCERIN SL TABS 0.4 MG TAB SUBLINGUAL STA (21:52)
[2017-05-25 21:59] LABS: Creatine Kinase MB 1.6 ng/mL (0.0-2.4); Troponin I <0.012 ng/mL (0.000-0.034)
[2017-05-26 01:06] VITALS: BP 122/77; PULSE 69; TEMP 97.9
== END 2017-05-26 01:06 | disposition home or self-care (01) ==
LOC: EC 20:45
DX: R07.9 Chest pain, unspecified (principal); L30.9 Dermatitis, unspecified; R42 Dizziness and giddiness; K21.9 Gastro-esophageal reflux disease without esophagitis; E78.5 Hyperlipidemia, unspecified; I10 Essential (primary) hypertension; M19.90 Unspecified osteoarthritis, unspecified site; E07.9 Disorder of thyroid, unspecified; F31.9 Bipolar disorder, unspecified; F41.9 Anxiety disorder, unspecified; F43.10 Post-traumatic stress disorder, unspecified; Z79.1 Long term (current) use of non-steroidal anti-inflammatories (NSAID); Z79.82 Long term (current) use of aspirin; Z79.899 Other long term (current) drug therapy; Z88.1 Allergy status to other antibiotic agents; Z88.2 Allergy status to sulfonamides; Z88.5 Allergy status to narcotic agent
CPT/HCPCS: 36415; 71020; 80053; 82550; 82553; 83735; 84484; 85025; 85379; 85610; 85730; 93005; 99285

== ENCOUNTER → 2017-08-10 | Outpatient (CLI) | payer MEDICARE ==
--- NOTE | 2017-08-10 11:44 | MR ---
MR brain without contrast HISTORY: Memory loss Multiplanar multisequence imaging through the brain. Correlation to CT brain 02/14/2013 There is no restricted diffusion. No hemorrhage or hydrocephalus. There is a partially empty sella. C orpus callosum, cervical medullary junction, cerebellopontine angles are normal. Some minimal fluid s ignal present in the petrous apex on the left. There are normal vascular flow voids. Some symmetric v olume loss present in the frontal lobes bilaterally is stable. Some white matter demyelination change likely due to chronic small vessel ischemia. Orbits show symmetric appearance. IMPRESSION: No acute abnormality. Findings similar to prior brain CT. Frontal lobe volume loss is sym metric. Inflammatory change in the petrous apex is likely stable. There is artifact on the exam.
== END ==
LOC: RADMRIMAIN 09:38
PROVIDERS: ATTEND Psychiatry & Neurology Neurology
DX: R41.3 Other amnesia (principal)
CPT/HCPCS: 70551

== ENCOUNTER → 2017-12-23 | Outpatient (CLI) | payer MEDICARE ==
--- NOTE | 2017-12-27 10:04 | MM ---
Reason for exam: screening (asymptomatic). Last mammogram was performed 2 years and 4 months ago. History: Patient is postmenopausal. Took hormonal contraceptives for 1 year. Physical Findings: A clinical breast exam by your physician is recommended on an annual basis and results should be correlated with mammographic findings. MG 3D Screening Mammo W/Cad Bilateral CC and MLO view(s) were taken. Prior study comparison: August 16, 2015, bilateral MG screening mammo w CAD. August 31, 2013, bilateral digital screening mammo w/CAD. There are scattered fibroglandular densities. No significant changes when compared with prior studies. ASSESSMENT: Benign, BI-RAD 2 RECOMMENDATION: Routine screening mammogram of both breasts in 1 year.
== END | disposition home or self-care (01) ==
LOC: RADMAMWWP 16:41
PROVIDERS: ATTEND Family Medicine
DX: Z12.31 Encounter for screening mammogram for malignant neoplasm of breast (principal)
CPT/HCPCS: 77063; 77067

== ENCOUNTER 2018-03-07 15:23 | Emergency (ER) | payer MEDICARE ==
--- NOTE | 2018-03-07 15:55 | ED ---
General Adult HPI - General Chief complaint: Recheck/Abnormal Lab/Rx Stated complaint: cough sent by [email or web address] Time Seen by Provider: 03/07/18 15:44 Source: patient, RN notes reviewed Mode of arrival: ambulatory Limitations: no limitations - History of Present Illness Initial comments: A 62-year-old female who presents with complaints of not feeling well for past several months she has a cough no phlegm production no fevers chills or sweats she has have occasional chest pain some generalized body aches cough she states is dry she was seen at [facility] and sent here for evaluation she states she is concerned about having pneumococcal pneumonia or Lyme disease that she had a tic problem at her house this past year no other complaints such as dysuria hematuria no decrease oral intake. - Related Data Home Medications Medication Instructions Recorded Confirmed Levothyroxine Sodium [Synthroid] 50 mcg PO QAM 06/01/15 03/07/18 Metoprolol Succinate (ER) [Toprol 12.5 mg PO QAM 06/01/15 03/07/18 XL] Omeprazole [PriLOSEC] 20 mg PO DAILY 06/01/15 03/07/18 Trihexyphenidyl HCl 2 mg PO BID 06/01/15 03/07/18 Fenofibrate [Lofibra] 160 mg PO QAM 10/22/15 03/07/18 LORazepam [Ativan] 1 mg PO TID 10/22/15 03/07/18 Meloxicam [Mobic] 7.5 mg PO DAILY 01/10/17 03/07/18 Aspirin EC [Ecotrin Low Dose] 81 mg PO DAILY 05/25/17 03/07/18 metFORMIN HCL [Glucophage] 500 mg PO BID 12/15/17 03/07/18 Atorvastatin [Lipitor] 20 mg PO DAILY 03/07/18 03/07/18 Naproxen Sodium [Aleve] 220 mg PO DAILY PRN 03/07/18 03/07/18 Previous Rx's Medication Instructions Recorded Isosorbide Mononitrate ER [Imdur] 30 mg PO DAILY #30 tab.er.24h 01/11/17 QUEtiapine [SEROquel] 150 mg PO HS #90 tab 09/08/17 lamoTRIgine [LaMICtal] 100 mg PO DAILY #30 tab 09/08/17 Allergies Allergy/AdvReac Type Severity Reaction Status Date / Time codeine Allergy Unknown Verified 03/07/18 16:33 Sulfa (Sulfonamide Allergy Unknown Verified 03/07/18 16:33 Antibiotics) sulfamethoxazole Allergy Unknown Verified 03/07/18 16:33 [From Bactrim] thioridazine [From Mellaril] Allergy Unknown Verified 03/07/18 16:33 trimethoprim [From Bactrim] Allergy Unknown Verified 03/07/18 16:33 Review of Systems ROS Statement: Those systems with pertinent positive or pertinent negative responses have been documented in the HPI. ROS Other: All systems not noted in ROS Statement are negative. 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.NEUROPATHY; last seizure 5 years ago, has CPAP machine but does not use History of Any Multi-Drug Resistant Organisms: None Reported Past Surgical History: Section Additional Past Surgical History / Comment(s): Sx: nasal Past Anesthesia/Blood Transfusion Reactions: Motion Sickness Past Psychological History: ADD/ADHD, Anxiety, Bipolar, Depression, Panic Disorder, PTSD, Schizoaffective Disorder Smoking Status: Never smoker Past Alcohol Use History: Rare Past Drug Use History: None Reported - Past Family History Father Family Medical History: CVA/TIA Additional Family Medical History / Comment(s): SMOKED AND USED ETOH- AGE 78 - FROM STROKE Mother Additional Family Medical History / Comment(s): CRONIC BRONCHITIS.REMOVED PART OF ONE LUNG d/t the bronchitis infection General Exam - General Exam Comments Initial Comments: This a well-developed well-nourished awake alert oriented 3 female Limitations: no limitations General appearance: alert, in no apparent distress Head exam: Present: atraumatic, normocephalic, normal inspection Eye exam: Present: normal appearance, PERRL, EOMI. Absent: scleral icterus, conjunctival injection, periorbital swelling ENT exam: Present: normal exam, mucous membranes moist Neck exam: Present: normal inspection. Absent: tenderness, meningismus, lymphadenopathy Respiratory exam: Present: normal lung sounds bilaterally. Absent: respiratory distress, wheezes, rales, rhonchi, stridor Cardiovascular Exam: Present: regular rate, normal rhythm, normal heart sounds. Absent: systolic murmur, diastolic murmur, rubs, gallop, clicks GI/Abdominal exam: Present: soft, normal bowel sounds. Absent: distended, tenderness, guarding, rebound, rigid Extremities exam: Present: normal inspection, full ROM, normal capillary refill. Absent: tenderness, pedal edema, joint swelling, calf tenderness Back exam: Present: normal inspection Neurological exam: Present: alert, oriented X3, CN II-XII intact Psychiatric exam: Present: normal affect, normal mood Skin exam: Present: warm, dry, intact, normal color. Absent: rash Course Vital Signs 03/07/18 03/07/18 03/07/18 15:32 17:31 18:12 Temperature 97.9 F 98.8 F 97.9 F Pulse Rate 108 H 81 86 Respiratory 18 18 16 Rate Blood Pressure 130/79 146/81 156/90 O2 Sat by Pulse 97 97 96 Oximetry Medical Decision Making - Medical Decision Making I did discuss findings with the patient does further workup is negative she will be discharged she is in agreement with this. - Lab Data Result diagrams: 03/07/18 15:19 03/07/18 15:19 Lab Results 03/07/18 03/07/18 03/07/18 Range/Units 15:19 15:19 15:19 WBC 10.1 (3.8-10.6) k/uL RBC 4.99 (3.80-5.40) m/uL Hgb 12.1 (11.4-16.0) gm/dL Hct 37.9 (34.0-46.0) % MCV 75.9 L (80.0-100.0) fL MCH 24.3 L (25.0-35.0) pg MCHC 32.0 (31.0-37.0) g/dL RDW 14.1 (11.5-15.5) % Plt Count 345 (150-450) k/uL Neutrophils % 68 % Lymphocytes % 25 % Monocytes % 3 % Eosinophils % 3 % Basophils % 1 % Neutrophils # 6.8 (1.3-7.7) k/uL Lymphocytes # 2.6 (1.0-4.8) k/uL Monocytes # 0.3 (0-1.0) k/uL Eosinophils # 0.3 (0-0.7) k/uL Basophils # 0.1 (0-0.2) k/uL D-Dimer (<0.60) mg/L FEU Sodium 145 (137-145) mmol/L Potassium 4.1 (3.5-5.1) mmol/L Chloride 105 (98-107) mmol/L Carbon Dioxide 25 (22-30) mmol/L Anion Gap 15 mmol/L BUN 20 H (7-17) mg/dL Creatinine 0.90 (0.52-1.04) mg/dL Est GFR (CKD-EPI)AfAm 81 (>60 ml/min/1.73 sqM) Est GFR (CKD-EPI)NonAf 70 (>60 ml/min/1.73 sqM) Glucose 177 H (74-99) mg/dL Calcium 9.8 (8.4-10.2) mg/dL Magnesium 2.1 (1.6-2.3) mg/dL Total Bilirubin 0.4 (0.2-1.3) mg/dL AST 31 (14-36) U/L ALT 56 H (9-52) U/L Alkaline Phosphatase 73 (38-126) U/L Total Creatine Kinase 113 (30-135) U/L CK-MB (CK-2) 1.8 (0.0-2.4) ng/mL CK-MB (CK-2) Rel Index 1.6 Troponin I <0.012 (0.000-0.034) ng/mL C-Reactive Protein 19.5 H (<10.0) mg/L Total Protein 6.9 (6.3-8.2) g/dL Albumin 4.4 (3.5-5.0) g/dL Lipase 141 (23-300) U/L TSH 2.970 (0.465-4.680) mIU/L Urine Color Urine Appearance (Clear) Urine pH (5.0-8.0) Ur Specific [place] (1.001-1.035) Urine Protein (Negative) Urine Glucose (UA) (Negative) Urine Ketones (Negative) Urine Blood (Negative) Urine Nitrite (Negative) Urine Bilirubin (Negative) Urine Urobilinogen (<2.0) mg/dL Ur Leukocyte Esterase (Negative) 03/07/18 03/07/18 Range/Units 15:19 17:10 WBC (3.8-10.6) k/uL RBC (3.80-5.40) m/uL Hgb (11.4-16.0) gm/dL Hct (34.0-46.0) % MCV (80.0-100.0) fL MCH (25.0-35.0) pg MCHC (31.0-37.0) g/dL RDW (11.5-15.5) % Plt Count (150-450) k/uL Neutrophils % % Lymphocytes % % Monocytes % % Eosinophils % % Basophils % % Neutrophils # (1.3-7.7) k/uL Lymphocytes # (1.0-4.8) k/uL Monocytes # (0-1.0) k/uL Eosinophils # (0-0.7) k/uL Basophils # (0-0.2) k/uL D-Dimer 0.23 (<0.60) mg/L FEU Sodium (137-145) mmol/L Potassium (3.5-5.1) mmol/L Chloride (98-107) mmol/L Carbon Dioxide (22-30) mmol/L Anion Gap mmol/L BUN (7-17) mg/dL Creatinine (0.52-1.04) mg/dL Est GFR (CKD-EPI)AfAm (>60 ml/min/1.73 sqM) Est GFR (CKD-EPI)NonAf (>60 ml/min/1.73 sqM) Glucose (74-99) mg/dL Calcium (8.4-10.2) mg/dL Magnesium (1.6-2.3) mg/dL Total Bilirubin (0.2-1.3) mg/dL AST (14-36) U/L ALT (9-52) U/L Alkaline Phosphatase (38-126) U/L Total Creatine Kinase (30-135) U/L CK-MB (CK-2) (0.0-2.4) ng/mL CK-MB (CK-2) Rel Index Troponin I (0.000-0.034) ng/mL C-Reactive Protein (<10.0) mg/L Total Protein (6.3-8.2) g/dL Albumin (3.5-5.0) g/dL Lipase (23-300) U/L TSH (0.465-4.680) mIU/L Urine Color Yellow Urine Appearance Clear (Clear) Urine pH 7.0 (5.0-8.0) Ur Specific [place] 1.016 (1.001-1.035) Urine Protein Negative (Negative) Urine Glucose (UA) Negative (Negative) Urine Ketones Negative (Negative) Urine Blood Negative (Negative) Urine Nitrite Negative (Negative) Urine Bilirubin Negative (Negative) Urine Urobilinogen <2.0 (<2.0) mg/dL Ur Leukocyte Esterase Negative (Negative) - Radiology Data Radiology results: report reviewed (I did review the imaging and report no acute findings), image reviewed Disposition Clinical Impression: Bronchitis, Feared condition not demonstrated Disposition: HOME SELF-CARE Condition: Good Instructions: How Your Lungs Work (ED), Chronic Bronchitis (ED) Is patient prescribed a controlled substance at d/c from ED?: No Referrals: Astrid Nation MD [Primary Care Provider] - 1-2 days
[2018-03-07 16:07] LABS: Basophils # (A) 0.1 k/uL (0-0.2); Basophils % (A) 1 %; Eosinophils # (A) 0.3 k/uL (0-0.7); Eosinophils % (A) 3 %; HCT 37.9 % (34.0-46.0); HGB 12.1 gm/dL (11.4-16.0); Lymphocytes # (A) 2.6 k/uL (1.0-4.8); Lymphocytes % (A) 25 %; MCH 24.3 pg (25.0-35.0); MCV 75.9 fL (80.0-100.0); Monocytes # (A) 0.3 k/uL (0-1.0); Monocytes % (A) 3 %; Neutrophils # (A) 6.8 k/uL (1.3-7.7); Neutrophils % (A) 68 %; Platelet Count 345 k/uL (150-450); RBC 4.99 m/uL (3.80-5.40); RDW 14.1 % (11.5-15.5); WBC 10.1 k/uL (3.8-10.6)
[2018-03-07 16:20] LABS: Creatine Kinase 113 U/L (30-135)
--- NOTE | 2018-03-07 16:20 | XR ---
EXAMINATION TYPE: XR chest 2V DATE OF EXAM: 03/07/2018 COMPARISON: Prior chest x-ray May 25, 2017 HISTORY: Cough and fatigue. TECHNIQUE: Frontal and lateral views of the chest are obtained. FINDINGS: There is chronic parenchymal change without suspicious focal air space opacity, pleural ef fusion, or pneumothorax seen. The cardiac silhouette size is within normal limits. Multilevel spurri ng in the spine is present. IMPRESSION: Chronic changes without acute pulmonary process.
[2018-03-07 16:22] LABS: Albumin 4.4 g/dL (3.5-5.0); C Reactive Protein 19.5 mg/L (<10.0); Calcium 9.8 mg/dL (8.4-10.2); Magnesium 2.1 mg/dL (1.6-2.3); Potassium 4.1 mmol/L (3.5-5.1); Total Bilirubin 0.4 mg/dL (0.2-1.3); Total Protein 6.9 g/dL (6.3-8.2)
[2018-03-07 16:31] LABS: Creatine Kinase MB 1.8 ng/mL (0.0-2.4); Troponin I <0.012 ng/mL (0.000-0.034)
[2018-03-07 17:32] LABS: Appearance,Urine Clear (Clear); Bilirubin,Urine Negative (Negative); Blood,Urine Negative (Negative); Color,Urine Yellow; Glucose,Urine (UA) Negative (Negative); Ketones,Urine Negative (Negative); Leukocyte Esterase,Urine Negative (Negative); Nitrite,Urine Negative (Negative); Protein,Urine Negative (Negative); Specific Gravity,Urine 1.016 (1.001-1.035); Urobilinogen,Urine <2.0 mg/dL (<2.0)
[2018-03-07 18:12] VITALS: BP 156/90; PULSE 86; RESP 16; TEMP 97.9
== END 2018-03-07 18:30 | disposition home or self-care (01) ==
LOC: EC 15:23
DX: J40 Bronchitis, not specified as acute or chronic (principal); Z71.1 Person with feared health complaint in whom no diagnosis is made; E11.9 Type 2 diabetes mellitus without complications; K21.9 Gastro-esophageal reflux disease without esophagitis; E78.5 Hyperlipidemia, unspecified; I10 Essential (primary) hypertension; E07.9 Disorder of thyroid, unspecified; M19.90 Unspecified osteoarthritis, unspecified site; F41.9 Anxiety disorder, unspecified; Z79.1 Long term (current) use of non-steroidal anti-inflammatories (NSAID); Z79.82 Long term (current) use of aspirin; Z79.84 Long term (current) use of oral hypoglycemic drugs; Z79.899 Other long term (current) drug therapy; Z88.1 Allergy status to other antibiotic agents; Z88.2 Allergy status to sulfonamides; Z88.5 Allergy status to narcotic agent; Z88.8 Allergy status to other drugs, medicaments and biological substances
CPT/HCPCS: 36415; 71046; 80053; 81003; 82550; 82553; 83690; 83735; 84443; 84484; 85025; 85379; 86140; 86618; 87040; 93005; 99284

== ENCOUNTER 2018-03-22 22:57 | Emergency (ER) | payer MEDICARE ==
--- NOTE | 2018-03-23 00:28 | ED ---
General Adult HPI - General Chief complaint: Chest Pain Stated complaint: Dizziness Time Seen by Provider: 03/22/18 23:59 Source: patient Mode of arrival: wheelchair Limitations: no limitations - History of Present Illness Initial comments: Is a 62-year-old woman who presents with a number of complaints that have been going on for some time. She states that she has been having some lightheadedness, generalized weakness and fatigue. She also is been having about a year of intermittent nausea. Patient has been seen here previously as well as had clinic follow-up. She states that symptom is bothering her the most is the generalized fatigue. -: month(s) Location: chest Consistency: intermittent Improves with: none Worsens with: none Associated Symptoms: other (Nausea and fatigue) Treatments Prior to Arrival: none - Related Data Home Medications Medication Instructions Recorded Confirmed Levothyroxine Sodium [Synthroid] 50 mcg PO QAM 06/01/15 03/07/18 Metoprolol Succinate (ER) [Toprol 12.5 mg PO QAM 06/01/15 03/07/18 XL] Omeprazole [PriLOSEC] 20 mg PO DAILY 06/01/15 03/07/18 Trihexyphenidyl HCl 2 mg PO BID 06/01/15 03/07/18 Fenofibrate [Lofibra] 160 mg PO QAM 10/22/15 03/07/18 LORazepam [Ativan] 1 mg PO TID 10/22/15 03/07/18 Meloxicam [Mobic] 7.5 mg PO DAILY 01/10/17 03/07/18 Aspirin EC [Ecotrin Low Dose] 81 mg PO DAILY 05/25/17 03/07/18 metFORMIN HCL [Glucophage] 500 mg PO BID 12/15/17 03/07/18 Atorvastatin [Lipitor] 20 mg PO DAILY 03/07/18 03/07/18 Naproxen Sodium [Aleve] 220 mg PO DAILY PRN 03/07/18 03/07/18 Previous Rx's Medication Instructions Recorded Isosorbide Mononitrate ER [Imdur] 30 mg PO DAILY #30 tab.er.24h 01/11/17 QUEtiapine [SEROquel] 150 mg PO HS #90 tab 09/08/17 lamoTRIgine [LaMICtal] 100 mg PO DAILY #30 tab 09/08/17 Allergies Allergy/AdvReac Type Severity Reaction Status Date / Time codeine Allergy Unknown Verified 03/22/18 23:08 Sulfa (Sulfonamide Allergy Unknown Verified 03/22/18 23:08 Antibiotics) sulfamethoxazole Allergy Unknown Verified 03/22/18 23:08 [From Bactrim] thioridazine [From Mellaril] Allergy Unknown Verified 03/22/18 23:08 trimethoprim [From Bactrim] Allergy Unknown Verified 03/22/18 23:08 Review of Systems ROS Statement: Those systems with pertinent positive or pertinent negative responses have been documented in the HPI. ROS Other: All systems not noted in ROS Statement are negative. Constitutional: Reports: weakness. Denies: fever, chills Respiratory: Denies: cough, dyspnea Cardiovascular: Reports: chest pain (Intermittent). Denies: palpitations, orthopnea, edema, syncope Gastrointestinal: Reports: nausea. Denies: abdominal pain, vomiting, diarrhea, melena, hematochezia Genitourinary: Denies: dysuria, hematuria Musculoskeletal: Denies: back pain Skin: Denies: rash Neurological: Denies: headache, weakness 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.NEUROPATHY; last seizure 5 years ago, has CPAP machine but does not use History of Any Multi-Drug Resistant Organisms: None Reported Past Surgical History: Section Additional Past Surgical History / Comment(s): Sx: nasal Past Anesthesia/Blood Transfusion Reactions: Motion Sickness Past Psychological History: ADD/ADHD, Anxiety, Bipolar, Depression, Panic Disorder, PTSD, Schizoaffective Disorder Smoking Status: Never smoker Past Alcohol Use History: Rare Past Drug Use History: None Reported - Past Family History Father Family Medical History: CVA/TIA Additional Family Medical History / Comment(s): SMOKED AND USED ETOH- AGE 78 - FROM STROKE Mother Additional Family Medical History / Comment(s): CRONIC BRONCHITIS.REMOVED PART OF ONE LUNG d/t the bronchitis infection General Exam Limitations: no limitations General appearance: alert, in no apparent distress, obese Head exam: Present: atraumatic, normocephalic Eye exam: Present: normal appearance. Absent: scleral icterus, conjunctival injection ENT exam: Present: normal oropharynx Neck exam: Present: normal inspection. Absent: full ROM Respiratory exam: Present: normal lung sounds bilaterally. Absent: respiratory distress, wheezes, rales, rhonchi, stridor Cardiovascular Exam: Present: regular rate, normal rhythm, normal heart sounds. Absent: systolic murmur, diastolic murmur, rubs, gallop GI/Abdominal exam: Present: soft. Absent: distended, tenderness, guarding, rebound, mass Extremities exam: Present: normal inspection, normal capillary refill. Absent: pedal edema, calf tenderness Back exam: Present: normal inspection. Absent: CVA tenderness (R), CVA tenderness (L) Neurological exam: Present: alert Skin exam: Present: warm, dry, intact, normal color. Absent: rash Course Vital Signs 03/22/18 03/22/18 03/23/18 23:03 23:58 02:41 Temperature 97.7 F Pulse Rate 95 87 Pulse Rate [ 95 Jewelry Dipper ] Respiratory 18 16 Rate Blood Pressure 139/97 137/83 O2 Sat by Pulse 99 98 Oximetry 03/23/18 03/23/18 03/23/18 04:31 05:15 06:35 Temperature Pulse Rate 81 73 95 Pulse Rate [ Jewelry Dipper ] Respiratory 18 16 16 Rate Blood Pressure 157/100 150/84 152/83 O2 Sat by Pulse 97 97 98 Oximetry EKG Findings - EKG Results: EKG: interpreted by ERMD, sinus rhythm (Rate 84 bpm), normal axis, normal QRS, normal ST/T - Blocks, [place], Hypertrophy, ST Abn: Repolarization changes or abnormalities: nonspecific abnormality, ST segment, and/or T wave Medical Decision Making - Lab Data Result diagrams: 03/22/18 23:43 03/22/18 23:43 Lab Results 03/22/18 03/22/18 03/22/18 Range/Units 23:43 23:43 23:43 WBC 7.0 (3.8-10.6) k/uL RBC 5.09 (3.80-5.40) m/uL Hgb 12.6 (11.4-16.0) gm/dL Hct 39.0 (34.0-46.0) % MCV 76.8 L (80.0-100.0) fL MCH 24.7 L (25.0-35.0) pg MCHC 32.2 (31.0-37.0) g/dL RDW 14.5 (11.5-15.5) % Plt Count 317 (150-450) k/uL Neutrophils % 54 % Lymphocytes % 37 % Monocytes % 3 % Eosinophils % 4 % Basophils % 1 % Neutrophils # 3.8 (1.3-7.7) k/uL Lymphocytes # 2.6 (1.0-4.8) k/uL Monocytes # 0.2 (0-1.0) k/uL Eosinophils # 0.3 (0-0.7) k/uL Basophils # 0.1 (0-0.2) k/uL PT 9.8 (9.0-12.0) sec INR 1.0 (<1.2) APTT 22.6 (22.0-30.0) sec Sodium 143 (137-145) mmol/L Potassium 3.8 (3.5-5.1) mmol/L Chloride 101 (98-107) mmol/L Carbon Dioxide 26 (22-30) mmol/L Anion Gap 16 mmol/L BUN 26 H (7-17) mg/dL Creatinine 1.00 (0.52-1.04) mg/dL Est GFR (CKD-EPI)AfAm 71 (>60 ml/min/1.73 sqM) Est GFR (CKD-EPI)NonAf 62 (>60 ml/min/1.73 sqM) Glucose 173 H (74-99) mg/dL Calcium 9.9 (8.4-10.2) mg/dL Magnesium 2.2 (1.6-2.3) mg/dL Total Bilirubin 0.2 (0.2-1.3) mg/dL AST 20 (14-36) U/L ALT 37 (9-52) U/L Alkaline Phosphatase 72 (38-126) U/L Troponin I (0.000-0.034) ng/mL Total Protein 7.2 (6.3-8.2) g/dL Albumin 4.7 (3.5-5.0) g/dL 03/22/18 03/23/18 Range/Units 23:43 06:30 WBC (3.8-10.6) k/uL RBC (3.80-5.40) m/uL Hgb (11.4-16.0) gm/dL Hct (34.0-46.0) % MCV (80.0-100.0) fL MCH (25.0-35.0) pg MCHC (31.0-37.0) g/dL RDW (11.5-15.5) % Plt Count (150-450) k/uL Neutrophils % % Lymphocytes % % Monocytes % % Eosinophils % % Basophils % % Neutrophils # (1.3-7.7) k/uL Lymphocytes # (1.0-4.8) k/uL Monocytes # (0-1.0) k/uL Eosinophils # (0-0.7) k/uL Basophils # (0-0.2) k/uL PT (9.0-12.0) sec INR (<1.2) APTT (22.0-30.0) sec Sodium (137-145) mmol/L Potassium (3.5-5.1) mmol/L Chloride (98-107) mmol/L Carbon Dioxide (22-30) mmol/L Anion Gap mmol/L BUN (7-17) mg/dL Creatinine (0.52-1.04) mg/dL Est GFR (CKD-EPI)AfAm (>60 ml/min/1.73 sqM) Est GFR (CKD-EPI)NonAf (>60 ml/min/1.73 sqM) Glucose (74-99) mg/dL Calcium (8.4-10.2) mg/dL Magnesium (1.6-2.3) mg/dL Total Bilirubin (0.2-1.3) mg/dL AST (14-36) U/L ALT (9-52) U/L Alkaline Phosphatase (38-126) U/L Troponin I <0.012 <0.012 (0.000-0.034) ng/mL Total Protein (6.3-8.2) g/dL Albumin (3.5-5.0) g/dL Disposition Clinical Impression: Chest pain Disposition: HOME SELF-CARE Instructions: Chest Pain (ED) Is patient prescribed a controlled substance at d/c from ED?: No Referrals: Astrid Nation MD [Primary Care Provider] - 1-2 days
[2018-03-23 00:34] LABS: Basophils # (A) 0.1 k/uL (0-0.2); Basophils % (A) 1 %; Eosinophils # (A) 0.3 k/uL (0-0.7); Eosinophils % (A) 4 %; HGB 12.6 gm/dL (11.4-16.0); Lymphocytes # (A) 2.6 k/uL (1.0-4.8); Lymphocytes % (A) 37 %; MCH 24.7 pg (25.0-35.0); MCHC 32.2 g/dL (31.0-37.0); MCV 76.8 fL (80.0-100.0); Mean Platelet Volume 6.6; Monocytes # (A) 0.2 k/uL (0-1.0); Monocytes % (A) 3 %; Neutrophils # (A) 3.8 k/uL (1.3-7.7); Neutrophils % (A) 54 %; Platelet Count 317 k/uL (150-450); RBC 5.09 m/uL (3.80-5.40); RDW 14.5 % (11.5-15.5)
[2018-03-23 00:49] LABS: Albumin 4.7 g/dL (3.5-5.0); Calcium 9.9 mg/dL (8.4-10.2); Magnesium 2.2 mg/dL (1.6-2.3); Potassium 3.8 mmol/L (3.5-5.1); Total Bilirubin 0.2 mg/dL (0.2-1.3); Total Protein 7.2 g/dL (6.3-8.2)
--- NOTE | 2018-03-23 00:49 | XR ---
EXAMINATION TYPE: XR chest 1V portable DATE OF EXAM: 03/23/2018 COMPARISON: 03/07/2018 HISTORY: Hypertension weakness TECHNIQUE: Single frontal view of the chest is obtained. FINDINGS: There is no heart failure nor confluent pneumonic infiltrate. Heart size is normal. Costop hrenic angles are clear. There are chest leads. IMPRESSION: No active cardiopulmonary disease. Inspiration is less than old exam.
[2018-03-23 00:50] LABS: Partial Thromboplastin Time 22.6 sec (22.0-30.0); Prothrombin Time 9.8 sec (9.0-12.0)
[2018-03-23] MEDS ORDERED: SODIUM CHLORIDE 0.9% 500 ML IV STA (02:40)
[2018-03-23 07:44] VITALS: BP 163/78; PULSE 82; RESP 18; TEMP 97
== END 2018-03-23 07:46 | disposition home or self-care (01) ==
LOC: EC 22:57
DX: R07.9 Chest pain, unspecified (principal); R42 Dizziness and giddiness; R53.1 Weakness; R11.0 Nausea; E11.9 Type 2 diabetes mellitus without complications; K21.9 Gastro-esophageal reflux disease without esophagitis; E78.5 Hyperlipidemia, unspecified; I10 Essential (primary) hypertension; M19.90 Unspecified osteoarthritis, unspecified site; E07.9 Disorder of thyroid, unspecified; G47.30 Sleep apnea, unspecified; F41.9 Anxiety disorder, unspecified; Z99.89 Dependence on other enabling machines and devices; Z79.1 Long term (current) use of non-steroidal anti-inflammatories (NSAID); Z79.82 Long term (current) use of aspirin; Z79.84 Long term (current) use of oral hypoglycemic drugs; Z79.899 Other long term (current) drug therapy; Z88.1 Allergy status to other antibiotic agents; Z88.2 Allergy status to sulfonamides; Z88.5 Allergy status to narcotic agent; Z88.8 Allergy status to other drugs, medicaments and biological substances
CPT/HCPCS: 36415; 71045; 80053; 83735; 84484; 85025; 85610; 85730; 93005; 96360; 99285

== ENCOUNTER 2018-03-26 21:50 | Emergency (ER) | payer MEDICARE ==
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
[2018-03-27 00:41] LABS: Amphetamine Screen,Urine Not Detected (NotDetected); Barbiturate Screen,Urine Not Detected (NotDetected); Benzodiazepines Screen,Urine Detected (NotDetected); Cocaine Screen,Urine Not Detected (NotDetected); Methadone Screen, Urine Not Detected (NotDetected); Opiate Screen,Urine Not Detected (NotDetected); Oxycodone Screen, Urine Not Detected (NotDetected); Phencyclidine Screen,Urine Not Detected (NotDetected); Tricyclic Antidepressant,Urine Not Detected (NotDetected); Urn Cannabinoid Scrn Not Detected (NotDetected)
[2018-03-27 02:31] VITALS: BP 134/66; PULSE 88; RESP 16; TEMP 97.7
== END 2018-03-27 03:04 | disposition home or self-care (01) ==
LOC: EC 21:50
DX: F25.9 Schizoaffective disorder, unspecified (principal); K21.9 Gastro-esophageal reflux disease without esophagitis; E11.40 Type 2 diabetes mellitus with diabetic neuropathy, unspecified; E78.5 Hyperlipidemia, unspecified; I10 Essential (primary) hypertension; M19.90 Unspecified osteoarthritis, unspecified site; G40.909 Epilepsy, unspecified, not intractable, without status epilepticus; E07.9 Disorder of thyroid, unspecified; F31.9 Bipolar disorder, unspecified; F41.0 Panic disorder [episodic paroxysmal anxiety]; F90.9 Attention-deficit hyperactivity disorder, unspecified type; F43.10 Post-traumatic stress disorder, unspecified; Z79.1 Long term (current) use of non-steroidal anti-inflammatories (NSAID); Z79.82 Long term (current) use of aspirin; Z79.899 Other long term (current) drug therapy; Z88.2 Allergy status to sulfonamides; Z88.5 Allergy status to narcotic agent; Z88.8 Allergy status to other drugs, medicaments and biological substances
CPT/HCPCS: 80306; 82075; 99284

== ENCOUNTER 2018-06-09 14:20 | Inpatient (IN) | payer MEDICARE ==
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
[2018-06-09 16:35] LABS: Amphetamine Screen,Urine Not Detected (NotDetected); Barbiturate Screen,Urine Not Detected (NotDetected); Benzodiazepines Screen,Urine Detected (NotDetected); Cocaine Screen,Urine Not Detected (NotDetected); Methadone Screen, Urine Not Detected (NotDetected); Opiate Screen,Urine Not Detected (NotDetected); Oxycodone Screen, Urine Not Detected (NotDetected); Phencyclidine Screen,Urine Not Detected (NotDetected); Tricyclic Antidepressant,Urine Not Detected (NotDetected); Urn Cannabinoid Scrn Not Detected (NotDetected)
[2018-06-09] MEDS ORDERED: MAGNESIUM HYDROXIDE 2,400 MG/10 ML CUP PO PRN (17:58)
[2018-06-09] MEDS ORDERED: MAG HYDROX/AL HYDROX/SIMETH 30 ML CUP PO PRN (17:58)
[2018-06-09] MEDS ORDERED: ZIPRASIDONE 20 MG VIAL IM PRN (17:58)
[2018-06-09] MEDS: MELOXICAM 7.5 MG TAB PO PRN (19:51)
[2018-06-09] MEDS: metFORMIN 500 MG TAB PO SCH (21:00)
[2018-06-09] MEDS: PERPHENAZINE 4 MG TAB PO SCH (21:01)
[2018-06-09] MEDS: METOPROLOL SUCCINATE (ER) 25 MG TAB.ER.24H PO SCH (21:01)
[2018-06-09] MEDS: LORazepam 1 MG TAB PO SCH (21:04)
[2018-06-09 21:45] LABS: Glucose,Whole Blood 155 mg/dL (75-99)
[2018-06-09] MEDS: TRIHEXYPHENIDYL 2 MG TAB PO SCH (21:49)
--- NOTE | 2018-06-10 01:51 | P.MDCNMH ---
History of Present Illness H&P Date: 06/10/18 Chief Complaint: medical management 62-year-old female with past medical history of diabetes, CAD, hypertension. Patient presented the hospital due to bizarre behaviors and thought process. She believes that there are different people stalking her from other worship cults and that she says was born again in her. She also reports that these people are telling her to hurt herself. It was hard to get a clear history from the patient he keeps praying and mumbling on comprehensive words. She is denying any chest pain or trouble breathing denies any fevers or chills denies any abdominal pain or changes in her bowel habits or urinary habits. Denies any GI bleeding Patient does complain of diffuse joint pain which she claims due to falls that has happened a year ago and caused fractures that has never healed, this seems like her thought process is delusional at this time. Review of Systems Pertinent positives as noted in HPI. All other systems were reviewed and are negative 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.NEUROPATHY; last seizure 5 years ago, has CPAP machine but does not use History of Any Multi-Drug Resistant Organisms: None Reported Past Surgical History: Section Additional Past Surgical History / Comment(s): Sx: nasal Past Anesthesia/Blood Transfusion Reactions: Motion Sickness Past Psychological History: ADD/ADHD, Anxiety, Bipolar, Depression, Panic Disorder, PTSD, Schizoaffective Disorder Smoking Status: Never smoker Past Alcohol Use History: Rare Past Drug Use History: None Reported - Past Family History Father Family Medical History: CVA/TIA Additional Family Medical History / Comment(s): SMOKED AND USED ETOH- AGE 78 - FROM STROKE Mother Additional Family Medical History / Comment(s): CRONIC BRONCHITIS.REMOVED PART OF ONE LUNG d/t the bronchitis infection Medications and Allergies Home Medications Medication Instructions Recorded Confirmed Type Levothyroxine Sodium [Synthroid] 50 mcg PO QAM 06/01/15 06/10/18 History Metoprolol Succinate (ER) [Toprol 12.5 mg PO HS 06/01/15 06/10/18 History XL] Omeprazole [PriLOSEC] 20 mg PO DAILY 06/01/15 06/10/18 History Trihexyphenidyl HCl 2 mg PO BID 06/01/15 06/10/18 History Fenofibrate [Lofibra] 160 mg PO QAM 10/22/15 06/10/18 History LORazepam [Ativan] 1 mg PO TID 10/22/15 06/10/18 History Meloxicam [Mobic] 7.5 - 15 mg PO DAILY PRN 01/10/17 06/10/18 History Isosorbide Mononitrate ER [Imdur] 30 mg PO DAILY #30 tab.er.24h 01/11/17 Rx Aspirin EC [Ecotrin Low Dose] 81 mg PO DAILY 05/25/17 06/10/18 History metFORMIN HCL [Glucophage] 500 mg PO BID 12/15/17 06/10/18 History Atorvastatin [Lipitor] 20 mg PO DAILY 03/07/18 06/10/18 History Acyclovir 400 mg PO TID PRN 06/09/18 06/10/18 History Paliperidone [Invega] 3 mg PO DAILY 06/09/18 06/10/18 History Perphenazine [Trilafon] 4 mg PO BID 06/09/18 06/10/18 History lamoTRIgine [LaMICtal] 200 mg PO DAILY 06/09/18 06/10/18 History rOPINIRole HCL [Requip] 0.5 mg PO HS 06/09/18 06/10/18 History Allergies Allergy/AdvReac Type Severity Reaction Status Date / Time codeine Allergy Unknown Verified 06/10/18 01:04 Sulfa (Sulfonamide Allergy Unknown Verified 06/10/18 01:04 Antibiotics) sulfamethoxazole Allergy Unknown Verified 06/10/18 01:04 [From Bactrim] thioridazine [From Mellaril] Allergy Unknown Verified 06/10/18 01:04 trimethoprim [From Bactrim] Allergy Unknown Verified 06/10/18 01:04 Physical Exam Vitals: Vital Signs Temp Pulse Pulse Resp BP BP Pulse Ox 06/09/18 21:02 98 138/81 06/09/18 18:59 97.5 F L 79 18 132/84 06/09/18 14:27 98.4 F 93 18 119/76 96 Intake and Output 06/09/18 06/09/18 06/09/18 06:59 14:59 22:59 Other: Weight 95.254 kg 90.288 kg Constitutional: No acute distress, conversant, pleasant, avoids eye contact Eyes: Anicteric sclerae, moist conjunctiva, no lid-lag Pupils equal round reactive to light ENMT: NC/AT Oropharynx clear, no erythema, or exudates Neck: Supple, FROM, no masses, or JVD No carotid bruits No thyromegaly Lungs: Clear to auscultation Clear to percussion Normal respiratory effort, no accessory muscle use Cardiovascular: Heart regular in rate and rhythm, No murmurs, gallops, or rubs No peripheral edema Abdominal: Soft Nontender, no guarding, rebound or rigidity Abdomen moving with respiration Normoactive bowel sounds No hepatomegaly, No splenomegaly No palpable mass No abdominal wall hernia noted Skin: Normal temperature, tone, texture, turgor No induration No subcutaneous nodules No rash, lesions No ulcers Extremities: No digital cyanosis No clubbing Pedal pulses intact and symmetrical Radial pulses intact and symmetrical No calf tenderness Full range of motion of bilateral upper and lower extremities Psychiatric: Alert and oriented to person, place and time Appropriate affect fair judgment Neuro Muscles Strength 5/5 in all 4 extremities Sensation to light touch grossly present throughout Cranial nerves II-XII grossly intact No focal sensory deficits Lymphatics: no palpable cervical or supraclavicular , or inguinal lymph nodes Cranial Nerve Examination - Cranial Nerves Cranial Nerve II- Optic: Intact Cranial Nerve III- Oculomotor: Intact Cranial Nerve IV- Trochlear: Intact Cranial Nerve V- Trigeminal: Intact Cranial Nerve - Abducens: Intact Cranial Nerve VII- Facial: Intact Cranial Nerve VIII- Auditory: Intact Cranial Nerve IX- Glossopharyngeal: Intact Cranial Nerve X- Vagus: Intact Cranial Nerve XI- Accessory: Intact Cranial Nerve XII- Hypoglossal: Intact Results Labs: Abnormal Lab Results - Last 24 Hours (Table) 06/09/18 06/09/18 Range/Units 16:17 21:38 POC Glucose (mg/dL) 155 H (75-99) mg/dL U Benzodiazepines Scrn Detected H (NotDetected) Assessment and Plan Assessment: 62-year-old female with past medical history of diabetes mellitus, hypertension , CAD admitted to the hospital due to bizarre behavior and thought process. Medicine consulted for medical management. At this time patient seems to have chronic conditions that are stable continue with home medications. Plan: Bizarre behavior and thought process, delusional thought process Management per psych Chronic conditions that are stable at this time Hypertension CAD Diabetes mellitus Hyperlipidemia Continue home medications as prescribed Patient is low risk for DVT and ambulatory Thank you for allowing us to participate in the care of this patient. We will follow peripherally. Do not hesitate to contact us with questions. Someone can be reached from the [facility] hospitalist group at all hours of the day at [phone].
[2018-06-10 06:07] LABS: Glucose,Whole Blood 117 mg/dL (75-99)
[2018-06-10] MEDS: LEVOTHYROXINE 50 MCG TAB PO SCH (06:40)
[2018-06-10] MEDS: PERPHENAZINE 4 MG TAB PO SCH ×2 (08:23→20:14)
[2018-06-10] MEDS: ISOSORBIDE MONONITRATE ER 30 MG TAB.ER.24H PO SCH (08:23)
[2018-06-10] MEDS: PANTOPRAZOLE 40 MG TABLET PO SCH (08:23)
[2018-06-10] MEDS: TRIHEXYPHENIDYL 2 MG TAB PO SCH ×2 (08:23→20:14)
[2018-06-10] MEDS: ATORVASTATIN 20 MG TAB PO SCH (08:23)
[2018-06-10] MEDS: FENOFIBRATE 160 MG TAB PO SCH (08:23)
[2018-06-10] MEDS: LORazepam 1 MG TAB PO SCH ×3 (08:23→20:14)
[2018-06-10] MEDS: ASPIRIN 81 MG PO SCH (08:24)
[2018-06-10] MEDS: metFORMIN 500 MG TAB PO SCH ×2 (08:24→20:10)
[2018-06-10] MEDS: lamoTRIgine 100 MG TAB PO SCH (08:24)
[2018-06-10] MEDS: MELOXICAM 7.5 MG TAB PO PRN (08:26)
[2018-06-10] MEDS ORDERED: PALIPERIDONE 3 MG TAB.ER.24 PO SCH (09:00)
[2018-06-10 09:08] LABS: Basophils # (A) 0.1 k/uL (0-0.2); Basophils % (A) 1 %; Eosinophils # (A) 0.2 k/uL (0-0.7); Eosinophils % (A) 2 %; HCT 37.1 % (34.0-46.0); HGB 11.9 gm/dL (11.4-16.0); Lymphocytes # (A) 1.8 k/uL (1.0-4.8); Lymphocytes % (A) 24 %; MCH 24.7 pg (25.0-35.0); MCHC 32.2 g/dL (31.0-37.0); MCV 76.9 fL (80.0-100.0); Monocytes # (A) 0.3 k/uL (0-1.0); Monocytes % (A) 4 %; Neutrophils # (A) 4.9 k/uL (1.3-7.7); Neutrophils % (A) 67 %; Platelet Count 304 k/uL (150-450); RBC 4.83 m/uL (3.80-5.40); RDW 13.9 % (11.5-15.5); WBC 7.2 k/uL (3.8-10.6)
[2018-06-10 10:08] LABS: Albumin 4.4 g/dL (3.5-5.0); Calcium 9.7 mg/dL (8.4-10.2); Potassium 4.7 mmol/L (3.5-5.1); Total Bilirubin 0.4 mg/dL (0.2-1.3); Total Protein 6.7 g/dL (6.3-8.2)
--- NOTE | 2018-06-10 12:52 | P.HP ---
Psychiatric H&P - . History & Physical: Allergies Allergy/AdvReac Type Severity Reaction Status Date / Time codeine Allergy Unknown Verified 06/10/18 01:04 Sulfa (Sulfonamide Allergy Unknown Verified 06/10/18 01:04 Antibiotics) sulfamethoxazole Allergy Unknown Verified 06/10/18 01:04 [From Bactrim] thioridazine [From Mellaril] Allergy Unknown Verified 06/10/18 01:04 trimethoprim [From Bactrim] Allergy Unknown Verified 06/10/18 01:04 Vital Signs Temp 97.9 F 06/10/18 06:05 Pulse 76 06/10/18 06:05 Resp 16 06/10/18 06:05 BP 119/62 06/10/18 06:05 Pulse Ox 96 06/09/18 14:27 Intake & Output 06/09/18 06/10/18 06/10/18 18:59 06:59 18:59 Weight 95.254 kg 90.288 kg Laboratory Last Values WBC 7.2 k/uL (3.8-10.6) 06/10/18 08:39 RBC 4.83 m/uL (3.80-5.40) 06/10/18 08:39 Hgb 11.9 gm/dL (11.4-16.0) 06/10/18 08:39 Hct 37.1 % (34.0-46.0) 06/10/18 08:39 MCV 76.9 fL (80.0-100.0) L 06/10/18 08:39 MCH 24.7 pg (25.0-35.0) L 06/10/18 08:39 MCHC 32.2 g/dL (31.0-37.0) 06/10/18 08:39 RDW 13.9 % (11.5-15.5) 06/10/18 08:39 Plt Count 304 k/uL (150-450) 06/10/18 08:39 Neutrophils % 67 % 06/10/18 08:39 Lymphocytes % 24 % 06/10/18 08:39 Monocytes % 4 % 06/10/18 08:39 Eosinophils % 2 % 06/10/18 08:39 Basophils % 1 % 06/10/18 08:39 Neutrophils # 4.9 k/uL (1.3-7.7) 06/10/18 08:39 Lymphocytes # 1.8 k/uL (1.0-4.8) 06/10/18 08:39 Monocytes # 0.3 k/uL (0-1.0) 06/10/18 08:39 Eosinophils # 0.2 k/uL (0-0.7) 06/10/18 08:39 Basophils # 0.1 k/uL (0-0.2) 06/10/18 08:39 Sodium 141 mmol/L (137-145) 06/10/18 08:39 Potassium 4.7 mmol/L (3.5-5.1) 06/10/18 08:39 Chloride 106 mmol/L (98-107) 06/10/18 08:39 Carbon Dioxide 27 mmol/L (22-30) 06/10/18 08:39 Anion Gap 8 mmol/L 06/10/18 08:39 BUN 21 mg/dL (7-17) H 06/10/18 08:39 Creatinine 0.90 mg/dL (0.52-1.04) 06/10/18 08:39 Est GFR (CKD-EPI)AfAm 81 (>60 ml/min/1.73 sqM) 06/10/18 08:39 Est GFR (CKD-EPI)NonAf 70 (>60 ml/min/1.73 sqM) 06/10/18 08:39 Glucose 182 mg/dL (74-99) H 06/10/18 08:39 POC Glucose (mg/dL) 117 mg/dL (75-99) H 06/10/18 06:03 POC Glu Upholsterer Inside ID Laura Brandon 06/10/18 06:03 Calcium 9.7 mg/dL (8.4-10.2) 06/10/18 08:39 Total Bilirubin 0.4 mg/dL (0.2-1.3) 06/10/18 08:39 AST 24 U/L (14-36) 06/10/18 08:39 ALT 39 U/L (9-52) 06/10/18 08:39 Alkaline Phosphatase 52 U/L (38-126) 06/10/18 08:39 Total Protein 6.7 g/dL (6.3-8.2) 06/10/18 08:39 Albumin 4.4 g/dL (3.5-5.0) 06/10/18 08:39 Triglycerides 82 mg/dL (<150) 06/10/18 08:39 Cholesterol 120 mg/dL (<200) 06/10/18 08:39 LDL Cholesterol, Calc 50 mg/dL (0-99) 06/10/18 08:39 HDL Cholesterol 54 mg/dL (40-60) 06/10/18 08:39 TSH 2.130 mIU/L (0.465-4.680) 06/10/18 08:39 Urine Opiates Screen Not Detected (NotDetected) 06/09/18 16:17 Ur Oxycodone Screen Not Detected (NotDetected) 06/09/18 16:17 Urine Methadone Screen Not Detected (NotDetected) 06/09/18 16:17 Ur Propoxyphene Screen Not Detected (NotDetected) 06/09/18 16:17 Ur Barbiturates Screen Not Detected (NotDetected) 06/09/18 16:17 U Tricyclic Antidepress Not Detected (NotDetected) 06/09/18 16:17 Ur Phencyclidine Scrn Not Detected (NotDetected) 06/09/18 16:17 Ur Amphetamines Screen Not Detected (NotDetected) 06/09/18 16:17 U Methamphetamines Scrn Not Detected (NotDetected) 06/09/18 16:17 U Benzodiazepines Scrn Detected (NotDetected) H 06/09/18 16:17 Urine Cocaine Screen Not Detected (NotDetected) 06/09/18 16:17 U Marijuana (THC) Screen Not Detected (NotDetected) 06/09/18 16:17 06/10/18 12:41 IDENTIFYING DATA: This patient is a 62-year-old female who was admitted to the mental health unit on a petition for acute symptoms of psychosis. HPI: The patient presents with a petition stating "responding to internal stimuli, believes she 2 times today hearing voices from Nikolas Collins, Jose C Green and Nasim Dietz." The patient's is fairly disorganized and has difficulty participating in the interview this morning. She is known to me from the outpatient office and carries a diagnosis of schizoaffective disorder. The patient does have a baseline of psychosis. Her symptoms of psychosis have been refractory to numerous antipsychotic medication trials either as monotherapy or in combination. Most recently we have been trialing perphenazine as her mother stated she may have done better with that in the past. The patient resides alone. She is on a limited fixed income. She feels related to sleep persecuted and often feels as though she is in danger. She continues to experience auditory hallucinations making derogatory statements. She will have episodes that or manic in nature. She describes ongoing feelings of anxiety. Again the session is limited due to the acute nature of her symptoms. PAST PSYCHIATRIC HISTORY: The patient has had numerous inpatient psychiatric admissions. She has been on this mental health unit several times. No history of suicide attempts. Most recently she has been on perphenazine 4 mg 3 times daily, Artane 2 mg twice daily, Lamictal 200 mg daily, Ativan 1 mg up to 3 times daily. She has been tried on Seroquel, Abilify, Geodon, Zyprexa, Clozaril , Mellaril, Trilafon, Latuda, Saphris, invega. In terms of mood stabilizer she has been on lithium Depakote Lamictal Trileptal and in terms of antidepressants Prozac Celexa Lexapro Cymbalta Effexor and Remeron. I will note she previously stated that Clozaril and Mellaril gave her seizures. Her mother directly informed me that Clozaril did in fact caused the patient a seizure. The patient is not working with an individual therapist. PMH: GERD, hypertension, chronic pain, hypothyroidism, hyperlipidemia, diabetes ALLERGIES: Codeine and sulfa MEDICATIONS: Refer to MAR CHEMICAL DEPENDENCY HISTORY: No reported use of alcohol and marijuana or illicit drugs, she has never been placed in residential treatment for chemical dependency reasons FAMILY PSYCHIATRIC HISTORY: None reported, no suicides in the family FAMILY CHEMICAL DEPENDENCY HISTORY: Reported SOCIAL HISTORY: The patient is a 62-year-old female, she is she has 1 child a daughter. The patient lives alone and is on a Social Security disability income. She has a high school diploma with 1 year of college. She has 2 sisters and had 1 brother but he is . Abuse history none reported, legal history none reported. MENTAL STATUS EXAM: The patient is an overweight female appearing her stated age. She has a mildly disheveled appearance she is dressed in hospital gowns. Eye contact is intermittent. She has spontaneous speech that is soft and difficult to understand at times. She appears quite disorganized and she appears to be internally preoccupied. Several times the same question needs to be asked of her as she is distracted. She endorses ongoing trouble some auditory hallucinations but make derogatory statements. In terms of delusional thought content she is religiously preoccupied and has paranoid and persecutory feelings. Insight and judgment are impaired. She is oriented to person place month year but names daily the week as rather than Wednesday. She demonstrates no abnormal involuntary movements at this time. She demonstrates no verbal or physical aggressiveness. Her affect is mildly irritable. She struggles with any cognitive testing due to her thought disorganization. STRENGTHS/WEAKNESSES: Strengths: Housing, income weaknesses: Severe refractory symptoms of psychosis INTELLECTUAL FUNCTIONING: Average IMPRESSIONS: [] 1. Schizoaffective disorder bipolar type, anxiety unspecified 2. Diabetes hypertension hypothyroidism chronic pain GERD hyperlipidemia 3. Significant psychosocial dysfunction due to acute symptoms of psychosis PLAN: The patient has been admitted to the mental health unit on a petition and clinical certificate. She is not able to verbalize an understanding of why she was admitted and demonstrates poor insight into her symptoms. For those reasons I will complete a second clinical certificate as she is requesting to leave the hospital now. I will titrate her perphenazine to 8 mg twice daily. Again this patient has been on numerous antipsychotic medications both as monotherapy and in the form of combination therapy. We will continue her Lamictal Artane and Ativan as written. We will monitor her for safety and provide reality orientation when possible. She will be seen by internal medicine for routine history and physical exam. We will involve family in treatment and discharge planning as she will allow.
[2018-06-10 13:37] LABS: Glucose,Whole Blood 102 mg/dL (75-99)
[2018-06-10 17:29] LABS: Glucose,Whole Blood 99 mg/dL (75-99)
[2018-06-10 17:42] LABS: Hemoglobin A1C 6.3 % (4.0-6.0)
[2018-06-10] MEDS: ACETAMINOPHEN TAB 325 MG TAB PO PRN (18:35)
[2018-06-10] MEDS: METOPROLOL SUCCINATE (ER) 25 MG TAB.ER.24H PO SCH (20:11)
[2018-06-11] MEDS: ACETAMINOPHEN TAB 325 MG TAB PO PRN ×2 (06:05→16:13)
[2018-06-11] MEDS: LEVOTHYROXINE 50 MCG TAB PO SCH (06:05)
[2018-06-11 06:13] LABS: Glucose,Whole Blood 114 mg/dL (75-99)
[2018-06-11] MEDS: PANTOPRAZOLE 40 MG TABLET PO SCH (08:43)
[2018-06-11] MEDS: TRIHEXYPHENIDYL 2 MG TAB PO SCH ×2 (08:43→20:13)
[2018-06-11] MEDS: lamoTRIgine 100 MG TAB PO SCH (08:43)
[2018-06-11] MEDS: MELOXICAM 7.5 MG TAB PO PRN (08:43)
[2018-06-11] MEDS: ATORVASTATIN 20 MG TAB PO SCH (08:43)
[2018-06-11] MEDS: ASPIRIN 81 MG PO SCH (08:43)
[2018-06-11] MEDS: metFORMIN 500 MG TAB PO SCH ×2 (08:44→20:13)
[2018-06-11] MEDS: PERPHENAZINE 4 MG TAB PO SCH ×2 (08:44→20:11)
[2018-06-11] MEDS: ISOSORBIDE MONONITRATE ER 30 MG TAB.ER.24H PO SCH (08:45)
[2018-06-11] MEDS: FENOFIBRATE 160 MG TAB PO SCH (08:45)
[2018-06-11] MEDS: LORazepam 1 MG TAB PO SCH ×3 (08:47→20:12)
[2018-06-11 12:35] LABS: Glucose,Whole Blood 95 mg/dL (75-99)
--- NOTE | 2018-06-11 12:42 | PN ---
PROGRESS NOTE SUBJECTIVE: Patient is seen, interviewed, walking in hallway, mumbling and responding to internal stimuli. Patient keeps stating that I am on the wrong medication and she is very paranoid about her medication and she is not here to hurt nobody. She was preoccupied with religiosity. The patient was using a lot of quotations from Bible. She is hyperverbal, loud at times. Hard to redirect. MENTAL EXAMINATION: Patient is hyper and agitated at times, but oriented in time, place, and person. Made fair eye contact. Speech pressured, hyperverbal. Mood irritable, angry, agitated with congruent affect. She denies any suicidal or homicidal ideation. I did see her responding to internal stimuli. She is paranoid, delusional, and also preoccupied with religiosity. Did not sleep good last night. Intellect is average. Insight and judgment are still impaired. ASSESSMENT: Schizoaffective disorder, bipolar type. PLAN: We will continue to adjust medications accordingly. Will use p.r.n. medication as needed for her agitation and aggression. Encouraged to attend groups and meetings. Supportive therapy provided. scale score is 0. MMODL / IJN: [id number] /
[2018-06-11 18:26] LABS: Appearance,Urine Clear (Clear); Bacteria,Urine Occasional /hpf; Bilirubin,Urine Negative (Negative); Blood,Urine Negative (Negative); Color,Urine Colorless; Glucose,Urine (UA) Negative (Negative); Ketones,Urine Negative (Negative); Leukocyte Esterase,Urine Moderate (Negative); Nitrite,Urine Negative (Negative); PH, Urine 5.5 (5.0-8.0); Protein,Urine Negative (Negative); Specific Gravity,Urine 1.004 (1.001-1.035); Urobilinogen,Urine <2.0 mg/dL (<2.0); WBC,Urine 6 /hpf (0-5)
[2018-06-11] MEDS: METOPROLOL SUCCINATE (ER) 25 MG TAB.ER.24H PO SCH (20:12)
[2018-06-12] MEDS: ACETAMINOPHEN TAB 325 MG TAB PO PRN ×3 (05:19→22:51)
[2018-06-12 05:30] LABS: Glucose,Whole Blood 108 mg/dL (75-99)
[2018-06-12] MEDS: LEVOTHYROXINE 50 MCG TAB PO SCH (05:31)
[2018-06-12] MEDS: ATORVASTATIN 20 MG TAB PO SCH (08:47)
[2018-06-12] MEDS: PERPHENAZINE 4 MG TAB PO SCH ×2 (08:47→21:01)
[2018-06-12] MEDS: LORazepam 1 MG TAB PO SCH ×3 (08:48→21:03)
[2018-06-12] MEDS: PANTOPRAZOLE 40 MG TABLET PO SCH (08:48)
[2018-06-12] MEDS: lamoTRIgine 100 MG TAB PO SCH (08:48)
[2018-06-12] MEDS: TRIHEXYPHENIDYL 2 MG TAB PO SCH ×2 (08:48→21:02)
[2018-06-12] MEDS: ASPIRIN 81 MG PO SCH (08:49)
[2018-06-12] MEDS: FENOFIBRATE 160 MG TAB PO SCH (08:49)
[2018-06-12] MEDS: ISOSORBIDE MONONITRATE ER 30 MG TAB.ER.24H PO SCH (08:49)
[2018-06-12] MEDS: metFORMIN 500 MG TAB PO SCH ×2 (08:51→21:02)
--- NOTE | 2018-06-12 14:07 | PN ---
PROGRESS NOTE DATE OF SERVICE: Today it is June 12, 2018. The patient is seen and interviewed. Found still delusional. Now she is fixated about pneumonia and bronchitis. She thinks that she has unresolved pneumonia and she thinks she has bronchitis and she wants it to be investigated. She is still very hyperverbal, having flight of ideas and fixated about somatic delusions and at times paranoid delusions. Today, she did not bring up the lesion, but she was fixated morning to physical symptoms. MENTAL STATUS EXAMINATION: Patient is alert, awake, oriented x3. Has fair eye contact. Speech is hyperverbal, pressured. Mood has fair eye contact. Mood is irritable and angry with congruent affect. She denies any suicidal ideation. She has been having auditory and visual hallucinations and she has been paranoid and delusional. Insight and judgment is still impaired. ASSESSMENT: Schizoaffective disorder, bipolar type. PLAN: We will continue to adjust medications accordingly. So far, patient has been responding to medication. Her AINS score is still 0. Encouraged to attend groups and meetings. MMODL / IJN: [id number] /
[2018-06-12] MEDS: MELOXICAM 7.5 MG TAB PO PRN (15:46)
[2018-06-12 17:26] LABS: Glucose,Whole Blood 91 mg/dL (75-99)
[2018-06-12] MEDS: METOPROLOL SUCCINATE (ER) 25 MG TAB.ER.24H PO SCH (21:01)
[2018-06-13] MEDS: LEVOTHYROXINE 50 MCG TAB PO SCH (05:57)
[2018-06-13] MEDS: ACETAMINOPHEN TAB 325 MG TAB PO PRN ×3 (05:57→23:02)
[2018-06-13 06:45] LABS: Glucose,Whole Blood 116 mg/dL (75-99)
[2018-06-13] MEDS: PERPHENAZINE 4 MG TAB PO SCH ×2 (08:01→20:37)
[2018-06-13] MEDS: TRIHEXYPHENIDYL 2 MG TAB PO SCH ×2 (08:02→20:37)
[2018-06-13] MEDS: ISOSORBIDE MONONITRATE ER 30 MG TAB.ER.24H PO SCH (08:02)
[2018-06-13] MEDS: LORazepam 1 MG TAB PO SCH ×3 (08:02→20:37)
[2018-06-13] MEDS: ASPIRIN 81 MG PO SCH (08:02)
[2018-06-13] MEDS: lamoTRIgine 100 MG TAB PO SCH (08:02)
[2018-06-13] MEDS: ATORVASTATIN 20 MG TAB PO SCH (08:02)
[2018-06-13] MEDS: FENOFIBRATE 160 MG TAB PO SCH (08:02)
[2018-06-13] MEDS: metFORMIN 500 MG TAB PO SCH ×2 (08:02→20:37)
[2018-06-13] MEDS: PANTOPRAZOLE 40 MG TABLET PO SCH (08:02)
--- NOTE | 2018-06-13 11:49 | P.PN ---
Progress Note - Text Interval history: The patient is found at the medication window she follows me to an interview room. She states that she is receiving bad treatment and states she was feeling better before she came here. She feels that people would try to harm or kill her and asks for reassurance that that won't happen. For minutes she spontaneously speaks revealing her cheondoism preoccupation. Again we reviewed her medication. She is having difficulty retaining information from our last discussion. Staff reported that the patient slept only 3 hours last night. In terms of appetite she states she believes we have poisoned her food. Mental status exam: The patient is alert she is dressed in her own clothing. She speaks very softly which is barely audible. Eye contact is staring in nature. She spontaneously describes paranoid and persecutory thoughts as well as cheondoism preoccupation. She is reporting no suicidal ideation intent or plan. She continues to endorse derogatory auditory hallucinations. Insight and judgment are impaired. She demonstrates no verbal or physical aggressiveness. She maintains a flat affect. She demonstrates no abnormal involuntary movements. She describes no thoughts of harming others. Plan: The patient will continue on Trilafon we will titrate the dose further during the course of the week. During treatment team meeting we discussed the possibility of her returning to community mental health services as she requires much more outpatient support. Vital signs reviewed. Reality orientation is offered during session. She requires continued psychiatric hospitalization due to her psychosocial dysfunction secondary to her delusional thought content.
[2018-06-13] MEDS: MELOXICAM 7.5 MG TAB PO PRN (15:10)
[2018-06-13 20:23] LABS: Glucose,Whole Blood 83 mg/dL (75-99)
[2018-06-13] MEDS: METOPROLOL SUCCINATE (ER) 25 MG TAB.ER.24H PO SCH (20:37)
[2018-06-14] MEDS: LEVOTHYROXINE 50 MCG TAB PO SCH (05:42)
[2018-06-14 05:57] LABS: Glucose,Whole Blood 89 mg/dL (75-99)
[2018-06-14] MEDS: TRIHEXYPHENIDYL 2 MG TAB PO SCH ×2 (08:46→20:55)
[2018-06-14] MEDS: PERPHENAZINE 4 MG TAB PO SCH ×3 (08:46→20:55)
[2018-06-14] MEDS: ATORVASTATIN 20 MG TAB PO SCH (08:46)
[2018-06-14] MEDS: LORazepam 1 MG TAB PO SCH ×3 (08:47→20:55)
[2018-06-14] MEDS: metFORMIN 500 MG TAB PO SCH ×2 (08:47→20:54)
[2018-06-14] MEDS: ISOSORBIDE MONONITRATE ER 30 MG TAB.ER.24H PO SCH (08:47)
[2018-06-14] MEDS: PANTOPRAZOLE 40 MG TABLET PO SCH (08:47)
[2018-06-14] MEDS: lamoTRIgine 100 MG TAB PO SCH (08:47)
[2018-06-14] MEDS: ASPIRIN 81 MG PO SCH (08:47)
[2018-06-14] MEDS: FENOFIBRATE 160 MG TAB PO SCH (08:47)
--- NOTE | 2018-06-14 11:49 | P.PN ---
Progress Note - Text Interval history: The patient is found in the hallway she follows me to an interview room. The patient states that she is being "abused by cults" here in the hospital. She states that she would like to be transferred to a [facility] facility. I attempted to discuss her medication with her. She has difficulty incorporating that information due to her distractibility. She endorses ongoing auditory hallucinations that are derogatory at times. Staff report that the patient minimally participates in groups for the first few minutes and then typically leaves. We discussed that she does have a deferral conference today. We discussed that it is in her best interest to transition to [facility] upon discharge. At first she requests that spontaneously and then later states she wants to go to a [facility] facility. Mental status exam: The patient is an alert overweight female. She is dressed in hospital gowns. Hygiene is adequate. Eye contact is staring in nature. She speaks softly. She spontaneously describes thoughts of restorationist persecution. She remains religiously preoccupied. She has ongoing other paranoid and persecutory thoughts. She demonstrates disorganization of thought at times. She appears to be distracted by hallucinations. Insight and judgment are impaired. She demonstrates no verbal or physical aggressiveness she is demonstrating no abnormal involuntary movements. Affect is flat. Plan: The patient remains acutely psychotic. Again she does have psychosis at baseline but does remain decompensated at this point area I will titrate her Trilafon to 8 mg 3 times daily. Vital signs reviewed. We will monitor her for safety. She is encouraged to participate more in the milieu.
[2018-06-14] MEDS: MELOXICAM 7.5 MG TAB PO PRN (14:12)
[2018-06-14 19:57] LABS: Glucose,Whole Blood 112 mg/dL (75-99)
[2018-06-14] MEDS: METOPROLOL SUCCINATE (ER) 25 MG TAB.ER.24H PO SCH (20:54)
[2018-06-15] MEDS: LEVOTHYROXINE 50 MCG TAB PO SCH (05:57)
[2018-06-15 07:13] LABS: Glucose,Whole Blood 108 mg/dL (75-99)
[2018-06-15] MEDS: FENOFIBRATE 160 MG TAB PO SCH (09:20)
[2018-06-15] MEDS: PERPHENAZINE 4 MG TAB PO SCH ×3 (09:20→21:03)
[2018-06-15] MEDS: MELOXICAM 7.5 MG TAB PO PRN (09:20)
[2018-06-15] MEDS: ISOSORBIDE MONONITRATE ER 30 MG TAB.ER.24H PO SCH (09:20)
[2018-06-15] MEDS: metFORMIN 500 MG TAB PO SCH ×2 (09:21→20:36)
[2018-06-15] MEDS: lamoTRIgine 100 MG TAB PO SCH (09:21)
[2018-06-15] MEDS: TRIHEXYPHENIDYL 2 MG TAB PO SCH ×2 (09:21→20:37)
[2018-06-15] MEDS: ASPIRIN 81 MG PO SCH (09:21)
[2018-06-15] MEDS: PANTOPRAZOLE 40 MG TABLET PO SCH (09:21)
[2018-06-15] MEDS: ATORVASTATIN 20 MG TAB PO SCH (09:21)
[2018-06-15] MEDS: LORazepam 1 MG TAB PO SCH ×3 (09:23→21:03)
--- NOTE | 2018-06-15 09:34 | P.PN ---
Progress Note - Text Interval history: The patient is found at the medication window she follows me to an interview room. She states that the staff don't like her. She reports whenever she comes out of her room they walk away from her. She feels religiously persecuted. She states that she thinks the medicine I'm giving her is "nuclear medicine". She asks to be discharged so that she can recover at home and states she was doing better before she came into the hospital. I was informed that she met with her business attorney for deferral conference and opted not to defer. She reports that she has been eating and that she slept last evening. Mental status exam: The patient is an overweight female appearing her stated age. She is dressed in her own clothing. Eye contact is poor. She often looks about the room. She will make bizarre statements at times that are unrelated to the question asked. She will quietly speak to herself which is inaudible across the room. She is concerned about others around her practicing different religions. Insight and judgment are poor. She demonstrates no verbal or physical aggressiveness. Affect can demonstrate irritability at times area she demonstrates no abnormal involuntary movements. She reports no suicidal or homicidal ideation intent or plan. She reports not feeling safe here. Plan: The patient will continue on her current medication we will monitor her for safety and encourage full participation in the milieu. She is not stable for discharge at this time. We will await her court hearing date. We'll continue to monitor her for safety. We will consider titrating the Trilafon further as clinically appropriate.
[2018-06-15] MEDS: ACETAMINOPHEN TAB 325 MG TAB PO PRN ×2 (12:21→23:15)
[2018-06-15 20:05] LABS: Glucose,Whole Blood 118 mg/dL (75-99)
[2018-06-15] MEDS: METOPROLOL SUCCINATE (ER) 25 MG TAB.ER.24H PO SCH (20:36)
[2018-06-16 07:42] LABS: Glucose,Whole Blood 100 mg/dL (75-99)
[2018-06-16] MEDS: LEVOTHYROXINE 50 MCG TAB PO SCH (07:52)
[2018-06-16] MEDS: TRIHEXYPHENIDYL 2 MG TAB PO SCH ×2 (07:58→20:42)
[2018-06-16] MEDS: FENOFIBRATE 160 MG TAB PO SCH (08:01)
[2018-06-16] MEDS: ATORVASTATIN 20 MG TAB PO SCH (08:01)
[2018-06-16] MEDS: ASPIRIN 81 MG PO SCH (08:01)
[2018-06-16] MEDS: lamoTRIgine 100 MG TAB PO SCH (08:02)
[2018-06-16] MEDS: ISOSORBIDE MONONITRATE ER 30 MG TAB.ER.24H PO SCH (08:02)
[2018-06-16] MEDS: LORazepam 1 MG TAB PO SCH ×3 (08:02→20:43)
[2018-06-16] MEDS: PANTOPRAZOLE 40 MG TABLET PO SCH (08:03)
[2018-06-16] MEDS: PERPHENAZINE 4 MG TAB PO SCH ×3 (08:03→20:42)
[2018-06-16] MEDS: metFORMIN 500 MG TAB PO SCH ×2 (08:03→20:43)
--- NOTE | 2018-06-16 09:42 | P.PN ---
Progress Note - Text Interval history: The patient is found in the hallway she follows me to an interview room. She reports her mood is better however she states that she is troubled by the subliminal messages she is receiving from other patients. She states that we all need to read the Bible cover to cover but the one that she brought in has been tampered with by other patients. She does ask some relevant questions pertaining to the court process. She has elected to not defer the court hearing. We discussed the process that will occur when she goes to court next Wednesday. We reviewed her psychotropic medication her questions were answered. Mental status exam: The patient is alert she is dressed in her own clothing which is the same as yesterday. She has a disheveled appearance. Hygiene appears to be grossly intact. Eye contact is staring in nature. She has spontaneous speech but it is very quiet. Even when she is asked to increase the volume of her voice she does not. She spontaneously speaks for several minutes reciting Bible versus and reiterating that she is a born-again Caodaism. She does endorse ongoing auditory hallucinations a community derogatory she describes them as subliminal messages today. She reports feeling unsafe around others here on the mental health unit. Insight and judgment remains impaired. She continues to have muslim preoccupation and paranoid thinking. She demonstrates no verbal or physical aggressiveness. Her affect is odd at times and will smile which is incongruent to our conversation at the time. Plan: The patient remains acutely psychotic. She endorses some improvement of her mood. We will continue to monitor her for safety and encourage appropriate participation in the milieu. Reality orientation is provided. She requires continued psychiatric hospitalization. Her court date is scheduled for next Wednesday. We will consider titrating the Trilafon further.
[2018-06-16] MEDS: MELOXICAM 7.5 MG TAB PO PRN (14:51)
[2018-06-16 20:03] LABS: Glucose,Whole Blood 93 mg/dL (75-99)
[2018-06-16] MEDS: METOPROLOL SUCCINATE (ER) 25 MG TAB.ER.24H PO SCH (20:43)
[2018-06-16] MEDS: ACETAMINOPHEN TAB 325 MG TAB PO PRN (22:59)
[2018-06-17 06:37] LABS: Glucose,Whole Blood 87 mg/dL (75-99)
[2018-06-17] MEDS: LORazepam 1 MG TAB PO SCH ×3 (08:48→20:33)
[2018-06-17] MEDS: ATORVASTATIN 20 MG TAB PO SCH (08:48)
[2018-06-17] MEDS: ASPIRIN 81 MG PO SCH (08:48)
[2018-06-17] MEDS: PANTOPRAZOLE 40 MG TABLET PO SCH (08:48)
[2018-06-17] MEDS: PERPHENAZINE 4 MG TAB PO SCH ×3 (08:48→20:34)
[2018-06-17] MEDS: FENOFIBRATE 160 MG TAB PO SCH (08:48)
[2018-06-17] MEDS: ISOSORBIDE MONONITRATE ER 30 MG TAB.ER.24H PO SCH (08:48)
[2018-06-17] MEDS: lamoTRIgine 100 MG TAB PO SCH (08:48)
[2018-06-17] MEDS: metFORMIN 500 MG TAB PO SCH ×2 (08:48→20:33)
[2018-06-17] MEDS: LEVOTHYROXINE 50 MCG TAB PO SCH (08:48)
[2018-06-17] MEDS: TRIHEXYPHENIDYL 2 MG TAB PO SCH ×2 (08:48→20:34)
--- NOTE | 2018-06-17 09:48 | P.PN ---
Progress Note - Text Interval history: The patient is found in group she follows me to an interview room. She reports ongoing auditory hallucinations. Today she is fixated on the idea of having pneumococcal pneumonia. She reports no shortness of breath, she is afebrile, her white count upon presentation was normal. She is reassured that she likely does not have pneumonia. She states that she has been trying to attend groups. She continues to have paranoid thoughts and continues to demonstrate buddhist preoccupation. Mental status exam: The patient is alert she is dressed in the same clothing. Hygiene is adequate grooming is fair. Eye contact is appropriate. She continues to speak very softly. She asked several questions regarding her medical status especially her blood sugars. She continues to verbalize the experience of auditory hallucinations that are derogatory, she demonstrates buddhist preoccupation as well as paranoid thinking. Thought process can be linear briefly and then she will discuss tangential thoughts. She demonstrates no verbal or physical aggressiveness. She does appear distracted at times perhaps internally preoccupied. She demonstrates no abnormal involuntary movements. Insight and judgment are impaired. Plan: The patient will continue on her current medications I will titrate the perphenazine further increasing the evening dose by 4 mg. Vital signs reviewed. Her blood sugars have been good. She is encouraged to continue participating in the milieu we will monitor her for safety.
[2018-06-17] MEDS: ACETAMINOPHEN TAB 325 MG TAB PO PRN (11:35)
[2018-06-17] MEDS: MELOXICAM 7.5 MG TAB PO PRN (14:41)
[2018-06-17 18:10] LABS: Glucose,Whole Blood 89 mg/dL (75-99)
[2018-06-17] MEDS: BACITRACIN 500 UNIT/GM OINT 28.4 GM TUBE TOPICAL SCH (20:33)
[2018-06-17] MEDS: METOPROLOL SUCCINATE (ER) 25 MG TAB.ER.24H PO SCH (20:33)
[2018-06-18] MEDS: ACETAMINOPHEN TAB 325 MG TAB PO PRN ×2 (01:30→22:29)
[2018-06-18 06:57] LABS: Glucose,Whole Blood 83 mg/dL (75-99)
[2018-06-18] MEDS: ATORVASTATIN 20 MG TAB PO SCH (09:34)
[2018-06-18] MEDS: lamoTRIgine 100 MG TAB PO SCH (09:34)
[2018-06-18] MEDS: ASPIRIN 81 MG PO SCH (09:34)
[2018-06-18] MEDS: ISOSORBIDE MONONITRATE ER 30 MG TAB.ER.24H PO SCH (09:34)
[2018-06-18] MEDS: LEVOTHYROXINE 50 MCG TAB PO SCH (09:34)
[2018-06-18] MEDS: LORazepam 1 MG TAB PO SCH ×3 (09:34→21:07)
[2018-06-18] MEDS: TRIHEXYPHENIDYL 2 MG TAB PO SCH ×2 (09:34→21:07)
[2018-06-18] MEDS: metFORMIN 500 MG TAB PO SCH ×2 (09:34→21:06)
[2018-06-18] MEDS: FENOFIBRATE 160 MG TAB PO SCH (09:34)
[2018-06-18] MEDS: PANTOPRAZOLE 40 MG TABLET PO SCH (09:34)
[2018-06-18] MEDS: PERPHENAZINE 4 MG TAB PO SCH ×3 (09:34→21:06)
[2018-06-18] MEDS: BACITRACIN 500 UNIT/GM OINT 28.4 GM TUBE TOPICAL SCH ×2 (09:35→21:06)
--- NOTE | 2018-06-18 09:47 | P.PN ---
Progress Note - Text Interval history: The patient is found in the hallway she follows me to an interview room. She spontaneously states that she is feels paranoid with other people around. She feels that people are doing things against her. She states that she needs to connect with her mandaen friends. We discussed that if she has a steel detailer or bottom crane operator a would be able to visit her during the hospitalization. She asked for reassurance that she will not be sent to [facility] or [facility] and asks for reassurance that she will not be hospitalized forever. She had no questions regarding her medications. She has been compliant with medication. She states that she is sleeping at night and her appetite stable. She is hoping that family will visit this weekend. Mental status exam: The patient is alert she is dressed in her own clothing which is different than previous days. Eye contact is appropriate. Hygiene is adequate. She continues to have paranoid persecutory thoughts along with restorationism preoccupation. She is endorsing auditory hallucinations making derogatory statements. Again symptoms of psychosis continue to cause psychosocial dysfunction for her. She is reporting no suicidal or homicidal thoughts she demonstrates no verbal or physical aggressiveness. Insight and judgment impaired. She demonstrates no abnormal involuntary movements. Plan: The patient will continue on her current medication we have just titrated the perphenazine further. We will monitor her for safety. Vital signs reviewed they're within normal limits. She requires continued hospitalization for her acute symptoms of psychosis.
[2018-06-18] MEDS: MELOXICAM 7.5 MG TAB PO PRN (13:45)
[2018-06-18 17:44] LABS: Glucose,Whole Blood 93 mg/dL (75-99)
[2018-06-18] MEDS: METOPROLOL SUCCINATE (ER) 25 MG TAB.ER.24H PO SCH (21:06)
[2018-06-19] MEDS: LEVOTHYROXINE 50 MCG TAB PO SCH (06:13)
[2018-06-19] MEDS: FENOFIBRATE 160 MG TAB PO SCH (08:20)
[2018-06-19] MEDS: ISOSORBIDE MONONITRATE ER 30 MG TAB.ER.24H PO SCH (08:20)
[2018-06-19] MEDS: ATORVASTATIN 20 MG TAB PO SCH (08:20)
[2018-06-19] MEDS: ASPIRIN 81 MG PO SCH (08:21)
[2018-06-19] MEDS: LORazepam 1 MG TAB PO SCH ×3 (08:21→20:38)
[2018-06-19] MEDS: metFORMIN 500 MG TAB PO SCH ×2 (08:21→20:38)
[2018-06-19] MEDS: TRIHEXYPHENIDYL 2 MG TAB PO SCH ×2 (08:21→20:38)
[2018-06-19] MEDS: lamoTRIgine 100 MG TAB PO SCH (08:21)
[2018-06-19] MEDS: PANTOPRAZOLE 40 MG TABLET PO SCH (08:21)
[2018-06-19] MEDS: MELOXICAM 7.5 MG TAB PO PRN (08:21)
[2018-06-19] MEDS: PERPHENAZINE 4 MG TAB PO SCH ×3 (08:21→20:38)
[2018-06-19] MEDS: BACITRACIN 500 UNIT/GM OINT 28.4 GM TUBE TOPICAL SCH ×2 (08:22→20:37)
--- NOTE | 2018-06-19 10:10 | P.PN ---
Progress Note - Text Interval history: The patient is found in the hallway she follows me to an interview room. She reports that she is sleeping well at night staff reported she slept 6 hours. Appetite appears to be stable. She continues to ask me if she has pneumococcal pneumonia despite her having no symptoms. She again asks about the court process that is scheduled for Wednesday. She indicates she had a visit with her daughter and mother last evening that went well. She has no questions regarding her medication. Mental status exam: The patient is alert her affect is brighter she demonstrates some exaggerating smiling. She remains religiously preoccupied speaks of her orthodoxy beliefs for several minutes spontaneously. She reports no thoughts of harming herself or harming others. He continues to experience auditory hallucinations that can be derogatory. She demonstrates no verbal or physical aggressiveness. She often speaks of feeling unsafe and she reports she just wants to go home to "continue healing". She demonstrates no abnormal involuntary movements. She is oriented to person place and date. She has spontaneous speech that is nonpressured but she is more verbose today. Plan: The patient will continue on the perphenazine as written. We will monitor her for safety and encourage her full participation in the milieu. Vital signs reviewed. The patient continues to demonstrate a significant amount of psychosis.
[2018-06-19] MEDS: ACETAMINOPHEN TAB 325 MG TAB PO PRN ×2 (10:51→14:30)
[2018-06-19] MEDS: METOPROLOL SUCCINATE (ER) 25 MG TAB.ER.24H PO SCH (20:38)
[2018-06-20] MEDS: LEVOTHYROXINE 50 MCG TAB PO SCH (06:05)
[2018-06-20] MEDS: metFORMIN 500 MG TAB PO SCH ×2 (09:15→20:42)
[2018-06-20] MEDS: ISOSORBIDE MONONITRATE ER 30 MG TAB.ER.24H PO SCH (09:15)
[2018-06-20] MEDS: lamoTRIgine 100 MG TAB PO SCH (09:15)
[2018-06-20] MEDS: ATORVASTATIN 20 MG TAB PO SCH (09:16)
[2018-06-20] MEDS: ASPIRIN 81 MG PO SCH (09:16)
[2018-06-20] MEDS: BACITRACIN 500 UNIT/GM OINT 28.4 GM TUBE TOPICAL SCH ×2 (09:16→20:42)
[2018-06-20] MEDS: FENOFIBRATE 160 MG TAB PO SCH (09:16)
[2018-06-20] MEDS: PANTOPRAZOLE 40 MG TABLET PO SCH (09:16)
[2018-06-20] MEDS: TRIHEXYPHENIDYL 2 MG TAB PO SCH ×2 (09:16→20:42)
[2018-06-20] MEDS: LORazepam 1 MG TAB PO SCH ×3 (09:16→20:42)
[2018-06-20] MEDS: PERPHENAZINE 4 MG TAB PO SCH ×3 (09:17→20:42)
--- NOTE | 2018-06-20 10:09 | P.PN ---
Progress Note - Text Interval history: The patient is found in group she follows me to an interview room. She begins a conversation by stating she feels the staff hate her and feels that many of the patients are working against her. She reports she slept last evening staff recorded she slept 6 hours. Appetite stable. Her blood sugars have been quite good. She continues to ask questions about her medications and those were addressed during our interaction. She continues to request to be discharged. Again she asked questions about the court process and those were answered. Mental status exam: The patient is alert she is dressed in her own clothing eye contact is intermittent. She speaks very softly. She continues to have paranoid her story thoughts. She is reporting no thoughts of harming herself or others. She has been directable. She demonstrates some mild lability of affect in that she is tearful briefly. She remains religiously preoccupied. There are times when she can be linear and asked linear questions and provide linear answers. She will offer tangential thinking at times as well. Insight and judgment are chronically impaired by psychosis. She demonstrates no verbal or physical aggressiveness she demonstrates no abnormal involuntary movements. Plan: The patient will continue on her current psychotropic medications we will consider titrating perphenazine further. She does have court scheduled for Wednesday afternoon. Vital signs reviewed.
[2018-06-20] MEDS: MELOXICAM 7.5 MG TAB PO PRN (15:56)
[2018-06-20] MEDS: METOPROLOL SUCCINATE (ER) 25 MG TAB.ER.24H PO SCH (20:41)
[2018-06-21] MEDS: LEVOTHYROXINE 50 MCG TAB PO SCH (05:59)
[2018-06-21] MEDS: ATORVASTATIN 20 MG TAB PO SCH (09:10)
[2018-06-21] MEDS: BACITRACIN 500 UNIT/GM OINT 28.4 GM TUBE TOPICAL SCH ×2 (09:10→20:06)
[2018-06-21] MEDS: ASPIRIN 81 MG PO SCH (09:10)
[2018-06-21] MEDS: FENOFIBRATE 160 MG TAB PO SCH (09:11)
[2018-06-21] MEDS: metFORMIN 500 MG TAB PO SCH ×2 (09:11→20:04)
[2018-06-21] MEDS: lamoTRIgine 100 MG TAB PO SCH (09:11)
[2018-06-21] MEDS: ISOSORBIDE MONONITRATE ER 30 MG TAB.ER.24H PO SCH (09:11)
[2018-06-21] MEDS: LORazepam 1 MG TAB PO SCH ×3 (09:11→20:04)
[2018-06-21] MEDS: PANTOPRAZOLE 40 MG TABLET PO SCH (09:11)
[2018-06-21] MEDS: TRIHEXYPHENIDYL 2 MG TAB PO SCH ×2 (09:12→20:05)
[2018-06-21] MEDS: PERPHENAZINE 4 MG TAB PO SCH ×3 (09:12→20:03)
[2018-06-21 09:43] VITALS: BMI 33.3
--- NOTE | 2018-06-21 11:22 | P.PN ---
Progress Note - Text Interval history: The patient is found in the hallway she follows me to an interview room. The patient continues to describe paranoid and persecutory thoughts. Staff report that she was more animated in group and displays some grandiose thinking. Again we reviewed her psychotropic medications. We reviewed the impending court date tomorrow. We continue to plan to have her transition to [facility] upon discharge. The patient is concerned that she will be institutionalized snf and each time I assure her that is not part of her treatment plan. Vital signs reviewed. Mental status exam: The patient is alert she seated calmly she is dressed in her own clothing. Eye contact is staring in nature. She reports her mood is better but continues to have safety concerns regarding others here in the hospital. She describes ongoing paranoid persecutory thoughts. She reports no suicidal or homicidal ideation. There continues to be Soma affect lability due to her symptoms of psychosis and she demonstrates brief tearfulness. She demonstrates no verbal or physical aggressiveness. She demonstrates no abnormal involuntary movements. Affect is blunted except for the brief tearfulness. Plan: The patient will continue on perphenazine I will titrate the dose to 12 mg 3 times a day. Her symptoms of psychosis remain refractory to numerous medication trials. We discussed initiating a family meeting to involve her daughter and mother if possible to be held later this week. We will monitor the patient for safety. She does have a court hearing scheduled for tomorrow.
[2018-06-21] MEDS: MELOXICAM 7.5 MG TAB PO PRN (11:41)
[2018-06-21] MEDS: ACETAMINOPHEN TAB 325 MG TAB PO PRN ×2 (14:17→22:08)
--- NOTE | 2018-06-21 17:57 | P.PN ---
Subjective Patient is 62-year-old female who is admitted for she is a affective psychosis episode. She has been complaining of burning with urination and urgency for the last couple weeks, which got progressively worse over the last couple days. She denies any flank pain, abdominal pain, other in the urine or vaginal bleeding or vaginal discharge, no nausea vomiting fever or chills. She is ALLERGIC to sulfa medication causing rash and she denies any history of penicillin she states that she has had Keflex in the past. No recent antibiotics. UA performed a few days ago showed moderate leukocyte esterases, WBCs and bacteria. REVIEW OF SYSTEMS: CONSTITUTIONAL: No fever or chills HEENT: No changes in vision or voice CARDIOVASCULAR: no chest pain or abnormal heart beats, or any swelling in ankles or feet. RESPIRATORY: No wheezing or coughing. GASTROINTESTINAL: No abdominal pain, no nausea no vomiting no constipation or diarrhea GENITOURINARY: no any urinary urgency, frequency or burning, and there has been no blood in her urine. no flank pain. MUSCULOSKELETAL: She notes full range of motion of all her joints without pain or swelling. NEUROLOGICAL: , no headache. no vision changes, or fainting. No numbness or tingling. Objective - Vital Signs Vital signs: Vital Signs Temp 97.6 F 06/21/18 06:02 Pulse 94 06/21/18 09:16 Resp 20 06/21/18 09:16 BP 129/71 06/21/18 09:16 Pulse Ox 96 06/09/18 14:27 Intake & Output 06/20/18 06/21/18 06/21/18 18:59 06:59 18:59 Weight 90.9 kg - Exam General: No distress. Ambulating without difficulty. Heart: No cardiomegaly or thrills; regular rate and rhythm, no murmur or gallop Lungs: Clear to auscultation and percussion Abdomen: Bowel sounds normal, no tenderness, organomegaly, masses, or hernia no flank tenderness Back: Spine normal without deformity or tenderness, no CVA tenderness Musculoskeletal: No peripheral joint swelling, pain, erythema. No clubbing - Labs CBC & Chem 7: 06/10/18 08:39 06/10/18 08:39 Assessment and Plan Plan: urinary tract infection in female, non-complicated No systemic toxicity, nonseptic appearing ALLERGY to sulfa drugs (rash) Keflex 3 days Time with Patient: Less than 30
[2018-06-21] MEDS: CEPHALEXIN 500 MG CAP PO SCH (20:04)
[2018-06-21] MEDS: METOPROLOL SUCCINATE (ER) 25 MG TAB.ER.24H PO SCH (20:04)
[2018-06-22] MEDS: LEVOTHYROXINE 50 MCG TAB PO SCH (06:16)
[2018-06-22] MEDS: ASPIRIN 81 MG PO SCH (08:16)
[2018-06-22] MEDS: ATORVASTATIN 20 MG TAB PO SCH (08:17)
[2018-06-22] MEDS: CEPHALEXIN 500 MG CAP PO SCH ×2 (08:17→20:21)
[2018-06-22] MEDS: ISOSORBIDE MONONITRATE ER 30 MG TAB.ER.24H PO SCH (08:17)
[2018-06-22] MEDS: FENOFIBRATE 160 MG TAB PO SCH (08:17)
[2018-06-22] MEDS: PERPHENAZINE 4 MG TAB PO SCH ×3 (08:18→20:21)
[2018-06-22] MEDS: PANTOPRAZOLE 40 MG TABLET PO SCH (08:18)
[2018-06-22] MEDS: metFORMIN 500 MG TAB PO SCH ×2 (08:18→20:21)
[2018-06-22] MEDS: LORazepam 1 MG TAB PO SCH ×3 (08:20→20:21)
[2018-06-22] MEDS: TRIHEXYPHENIDYL 2 MG TAB PO SCH ×2 (08:20→20:21)
[2018-06-22] MEDS: lamoTRIgine 100 MG TAB PO SCH (08:21)
[2018-06-22] MEDS: BACITRACIN 500 UNIT/GM OINT 28.4 GM TUBE TOPICAL SCH ×2 (08:24→20:24)
--- NOTE | 2018-06-22 09:45 | P.PN ---
Progress Note - Text Interval history: The patient is found at the front desk assistant she follows me to an interview room. She reports that her mood is better. She continues to endorse auditory hallucinations making derogatory statements. She states everyone here hates her. She did sleep last night staff records she slept 6 hours her appetite stable. She has been compliant with medication. We reviewed that she has a court hearing this afternoon her questions were answered. She continues to ask to be discharged. Social work notes were reviewed it appears an effort was made to arrange a support meeting. Mental status exam: The patient is alert she is dressed in her own clothing eye contact is appropriate. Speech is spontaneous. She has a bright smiling affect today and affect appears expansive this morning. She continues to demonstrate jainism preoccupation with suspicious and paranoid thinking. She is reporting no suicidal or homicidal ideation. She demonstrates no verbal or physical aggressiveness she demonstrates no abnormal involuntary movements. She is directable. Insight and judgment are chronically limited due to refractory symptoms of psychosis. She is oriented to person place and date. Plan: The patient will continue on her current medication I have recently titrated the perphenazine. She does have a court hearing this afternoon. We will arrange a support meeting involving her family if possible to discuss appropriate discharge planning. Vital signs reviewed they're within normal limits.
[2018-06-22] MEDS: ACETAMINOPHEN TAB 325 MG TAB PO PRN (10:39)
[2018-06-22] MEDS: MELOXICAM 7.5 MG TAB PO PRN (16:04)
[2018-06-22] MEDS: METOPROLOL SUCCINATE (ER) 25 MG TAB.ER.24H PO SCH (20:21)
[2018-06-23] MEDS: ACETAMINOPHEN TAB 325 MG TAB PO PRN (05:56)
[2018-06-23] MEDS: PERPHENAZINE 4 MG TAB PO SCH ×3 (09:59→21:31)
[2018-06-23] MEDS: LORazepam 1 MG TAB PO SCH ×3 (09:59→21:31)
[2018-06-23] MEDS: lamoTRIgine 100 MG TAB PO SCH (10:01)
[2018-06-23] MEDS: ISOSORBIDE MONONITRATE ER 30 MG TAB.ER.24H PO SCH (10:01)
[2018-06-23] MEDS: PANTOPRAZOLE 40 MG TABLET PO SCH (10:01)
[2018-06-23] MEDS: TRIHEXYPHENIDYL 2 MG TAB PO SCH ×2 (10:01→21:30)
[2018-06-23] MEDS: LEVOTHYROXINE 50 MCG TAB PO SCH (10:01)
[2018-06-23] MEDS: ATORVASTATIN 20 MG TAB PO SCH (10:02)
[2018-06-23] MEDS: FENOFIBRATE 160 MG TAB PO SCH (10:02)
[2018-06-23] MEDS: BACITRACIN 500 UNIT/GM OINT 28.4 GM TUBE TOPICAL SCH ×2 (10:02→21:35)
[2018-06-23] MEDS: ASPIRIN 81 MG PO SCH (10:02)
[2018-06-23] MEDS: CEPHALEXIN 500 MG CAP PO SCH ×2 (10:02→21:30)
[2018-06-23] MEDS: metFORMIN 500 MG TAB PO SCH ×2 (10:03→21:30)
--- NOTE | 2018-06-23 11:26 | P.PN ---
Progress Note - Text Interval history: The patient is found in the hallway she follows me to an interview room. She reports continued frustration with me in the hospital and is looking forward to a discharge. She was given a treatment order. She refused to attend the hearing yesterday but was represented by [place]. Again she asked questions about her psychiatric medication and those questions were addressed. Later in the morning the patient participated in a family meeting facilitated by social work and I was present. We discussed the transition plan of going to [facility] upon discharge. We discussed her current medication. We reviewed Jess's other concerns regarding her physical health. The patient's mother and daughter feel that there has been some improvement in the patient's mood overall. They agree that she would be better served by attending outpatient treatment with [facility]. Mental status exam: The patient is an overweight female she seated calling her chair she presents dressed in her own clothing. Hygiene is adequate. Speech is fluent and spontaneous. She continues to verbalize thoughts that are paranoid in nature. She continues to have some persecutory thinking. She continues to verbalize church preoccupation. She is reporting no suicidal or homicidal thoughts. She demonstrates no abnormal involuntary movements. Insight and judgment chronically limited by chronic symptoms of psychosis. During the family meeting she interacted with her daughter and mother appropriately however continued to make statements that were delusional in nature. She demonstrated no agitated behavior with her family present. Plan: The patient will continue on her current medication it appears she is demonstrating some clinical benefit from the perphenazine. If she demonstrates continued stability/improvement we will consider discharging her early next week. The plan would be for her to go to her walk-in appointment with [facility] after being discharged from the mental health unit. Vital signs reviewed.
[2018-06-23] MEDS: MELOXICAM 7.5 MG TAB PO PRN (16:50)
[2018-06-23] MEDS: METOPROLOL SUCCINATE (ER) 25 MG TAB.ER.24H PO SCH (21:30)
[2018-06-24] MEDS: LEVOTHYROXINE 50 MCG TAB PO SCH (05:51)
[2018-06-24] MEDS: CEPHALEXIN 500 MG CAP PO SCH ×2 (09:13→20:10)
[2018-06-24] MEDS: FENOFIBRATE 160 MG TAB PO SCH (09:13)
[2018-06-24] MEDS: TRIHEXYPHENIDYL 2 MG TAB PO SCH ×2 (09:14→20:06)
[2018-06-24] MEDS: ASPIRIN 81 MG PO SCH (09:14)
[2018-06-24] MEDS: PANTOPRAZOLE 40 MG TABLET PO SCH (09:14)
[2018-06-24] MEDS: ISOSORBIDE MONONITRATE ER 30 MG TAB.ER.24H PO SCH (09:14)
[2018-06-24] MEDS: PERPHENAZINE 4 MG TAB PO SCH ×3 (09:14→20:06)
[2018-06-24] MEDS: ATORVASTATIN 20 MG TAB PO SCH (09:14)
[2018-06-24] MEDS: lamoTRIgine 100 MG TAB PO SCH (09:14)
[2018-06-24] MEDS: metFORMIN 500 MG TAB PO SCH ×2 (09:14→20:06)
[2018-06-24] MEDS: LORazepam 1 MG TAB PO SCH ×3 (09:15→20:05)
[2018-06-24] MEDS: BACITRACIN 500 UNIT/GM OINT 28.4 GM TUBE TOPICAL SCH ×2 (09:16→20:10)
--- NOTE | 2018-06-24 09:41 | P.PN ---
Progress Note - Text Progress Note Date: 06/24/18 Interval History: Patient is a 62-year-old female who is being seen in coverage for Dr. Godfrey. Patient came to the interview room and stated that she thinks she is doing much better on the new medication. Patient stated that she wants to go home and saw her family recently and it went well. Patient verbalized that when she was at [facility] there is a [employer] across the street and that they have been bothering her since that time. Patient also spoke about someone inserting thoughts into her head but then come out of her lips and she says things that she doesn't mean. She also stated that she feels everyone here including staff and other patients are calling her ugly. Patient stated that she is eating and sleeping well. Mental Status: Appearance/Attitude: Patient is casually dressed, makes intermittent eye contact and was cooperative. Behavior: Patient did not exhibit any psychomotor agitation or retardation. Speech/Language: Patient was spontaneous, her speech is of normal volume and rhythm and she was coherent Thought Process: Patient was goal-directed no evidence of flight of ideas Thought Content: Patient denied auditory or visual hallucinations, she stated that thoughts of being placed into her true brain and mind and then coming out of her lips and she saying things that she doesn't want to say. She felt that staff and other patients were calling her ugly. Patient also stated that the [employer] that was across from [facility] when she was there last as an inpatient was against her caodaism and making her have bad thoughts. Patient states she sleeping and eating well. Suicidal/Homicidal Ideation: Patient denied any current suicidal or homicidal ideation Sensorium/Cognition: Patient is alert and oriented to person, situation and place. Mood/Affect: Patient's mood is cooperative her affect is slightly blunted Insight/Judgment: Patient's insight and judgment are fair Assessment: Patient has been attending groups and activities, slept for 6 hours last night and states that she is not having any side effects from her medication. Patient continues to verbalize delusional ideation, is suspicious of people are calling her ugly here including staff and other patients. Patient also discussed having thoughts placed into her true mind that, out of her lips and she says things she doesn't mean. Plan: Patient continues on Trilafon 12 mg 3 times a day, Artane 2 mg daily and Lamictal 200 mg a day. Patient continues to require hospitalization to further stabilize her psychotic symptoms.
[2018-06-24] MEDS: MELOXICAM 7.5 MG TAB PO PRN (16:01)
[2018-06-24] MEDS: METOPROLOL SUCCINATE (ER) 25 MG TAB.ER.24H PO SCH (20:03)
[2018-06-24] MEDS: ACETAMINOPHEN TAB 325 MG TAB PO PRN (20:07)
[2018-06-25] MEDS: LEVOTHYROXINE 50 MCG TAB PO SCH (06:29)
[2018-06-25] MEDS: metFORMIN 500 MG TAB PO SCH ×2 (08:05→21:02)
[2018-06-25] MEDS: PERPHENAZINE 4 MG TAB PO SCH ×3 (08:05→21:01)
[2018-06-25] MEDS: ASPIRIN 81 MG PO SCH (08:06)
[2018-06-25] MEDS: TRIHEXYPHENIDYL 2 MG TAB PO SCH ×2 (08:06→21:02)
[2018-06-25] MEDS: LORazepam 1 MG TAB PO SCH ×3 (08:06→21:02)
[2018-06-25] MEDS: ATORVASTATIN 20 MG TAB PO SCH (08:06)
[2018-06-25] MEDS: ISOSORBIDE MONONITRATE ER 30 MG TAB.ER.24H PO SCH (08:06)
[2018-06-25] MEDS: PANTOPRAZOLE 40 MG TABLET PO SCH (08:06)
[2018-06-25] MEDS: lamoTRIgine 100 MG TAB PO SCH (08:06)
[2018-06-25] MEDS: MELOXICAM 7.5 MG TAB PO PRN (08:08)
[2018-06-25] MEDS: BACITRACIN 500 UNIT/GM OINT 28.4 GM TUBE TOPICAL SCH ×2 (10:05→21:05)
[2018-06-25] MEDS: FENOFIBRATE 160 MG TAB PO SCH ×2 (13:04→13:06)
[2018-06-25] MEDS: ACETAMINOPHEN TAB 325 MG TAB PO PRN ×2 (13:06→22:16)
--- NOTE | 2018-06-25 14:26 | P.PN ---
Progress Note - Text Progress Note Date: 06/25/18 Interval history: Patient is seen in cross coverage today. She makes reference to being petitioned here. She makes reference to her mood being sad. Per chart history she did recently have a meeting with family. Mental status exam: She is alert and cooperative with the interview. There does appear to be some thought blocking at times. She describes her mood as sad. She makes reference to the staff saying things about her. She has some yarsani preoccupation. When asked about auditory hallucinations she makes reference to hearing the air-conditioning unit. She does not verbalize any thoughts of harm to self or others. She does not show any agitation. Plan: Patient be maintained on current psychotropic medication regimen. We'll continue to monitor for any medication side effects and monitor her ongoing response to treatment. We'll continue to cover this patient through the weekend.
[2018-06-25] MEDS: METOPROLOL SUCCINATE (ER) 25 MG TAB.ER.24H PO SCH (21:02)
[2018-06-26] MEDS: LEVOTHYROXINE 50 MCG TAB PO SCH (06:29)
[2018-06-26] MEDS: FENOFIBRATE 160 MG TAB PO SCH (08:12)
[2018-06-26] MEDS: metFORMIN 500 MG TAB PO SCH ×2 (08:12→21:01)
[2018-06-26] MEDS: LORazepam 1 MG TAB PO SCH ×3 (08:12→21:01)
[2018-06-26] MEDS: ISOSORBIDE MONONITRATE ER 30 MG TAB.ER.24H PO SCH (08:12)
[2018-06-26] MEDS: PERPHENAZINE 4 MG TAB PO SCH ×3 (08:12→21:00)
[2018-06-26] MEDS: lamoTRIgine 100 MG TAB PO SCH (08:12)
[2018-06-26] MEDS: ATORVASTATIN 20 MG TAB PO SCH (08:12)
[2018-06-26] MEDS: MELOXICAM 7.5 MG TAB PO PRN (08:13)
[2018-06-26] MEDS: ASPIRIN 81 MG PO SCH (08:13)
[2018-06-26] MEDS: BACITRACIN 500 UNIT/GM OINT 28.4 GM TUBE TOPICAL SCH ×2 (08:13→21:03)
[2018-06-26] MEDS: PANTOPRAZOLE 40 MG TABLET PO SCH (08:13)
[2018-06-26] MEDS: TRIHEXYPHENIDYL 2 MG TAB PO SCH ×2 (08:13→21:01)
[2018-06-26] MEDS: ACETAMINOPHEN TAB 325 MG TAB PO PRN ×3 (10:39→23:46)
--- NOTE | 2018-06-26 14:29 | P.PN ---
Progress Note - Text Progress Note Date: 06/26/18 Interval history: Patient seen in [facility] today. She makes reference to looking for discharge planning for Wednesday. She reports that she feels saved today. She reports that she is taking her psychotropic medications. She makes an apology type statement about something that she may have said in the past. Mental status exam: She is alert and cooperative with the interview. Her mood is described as "born again." There does appear to be some gnosticism preoccupation. She denies any thoughts of harm to self or others. She does not verbalize any hallucinations. She does not show any agitation. Plan: Patient will be maintained on current psychotropic medication regimen. We 'll continue to monitor for any medication side effects and monitor her ongoing response to treatment.
[2018-06-26] MEDS: METOPROLOL SUCCINATE (ER) 25 MG TAB.ER.24H PO SCH (21:01)
[2018-06-27] MEDS: ACETAMINOPHEN TAB 325 MG TAB PO PRN (05:32)
[2018-06-27] MEDS: LEVOTHYROXINE 50 MCG TAB PO SCH (05:36)
[2018-06-27] MEDS: PERPHENAZINE 4 MG TAB PO SCH ×3 (08:38→20:43)
[2018-06-27] MEDS: TRIHEXYPHENIDYL 2 MG TAB PO SCH ×2 (08:38→20:43)
[2018-06-27] MEDS: ATORVASTATIN 20 MG TAB PO SCH (08:39)
[2018-06-27] MEDS: PANTOPRAZOLE 40 MG TABLET PO SCH (08:39)
[2018-06-27] MEDS: ISOSORBIDE MONONITRATE ER 30 MG TAB.ER.24H PO SCH (08:39)
[2018-06-27] MEDS: metFORMIN 500 MG TAB PO SCH ×2 (08:39→20:42)
[2018-06-27] MEDS: lamoTRIgine 100 MG TAB PO SCH (08:39)
[2018-06-27] MEDS: ASPIRIN 81 MG PO SCH (08:40)
[2018-06-27] MEDS: LORazepam 1 MG TAB PO SCH ×3 (08:40→20:43)
[2018-06-27] MEDS: FENOFIBRATE 160 MG TAB PO SCH (08:40)
[2018-06-27] MEDS: BACITRACIN 500 UNIT/GM OINT 28.4 GM TUBE TOPICAL SCH ×2 (08:41→20:45)
--- NOTE | 2018-06-27 10:02 | P.PN ---
Progress Note - Text Progress Note Date: 06/27/18 Interval History: Patient is a 62-year-old female who was seen today in coverage for Dr. Godfrey. She states that she is eating okay, states she was a little tearful today and that her sleep is not restful but it's medicated sleep she could describe no further what she meant by that. She still states that people are not treating her well here on the unit including staff and other patients stated that she was treated well for only 1 minute yesterday. She states that she should not come to the hospital. Mental Status: Appearance/Attitude: Patient is casually dressed, makes intermittent eye contact and was cooperative Behavior: Patient does not display any psychomotor agitation or retardation. Speech/Language: Patient's speech is spontaneous of normal volume and rhythm and she is coherent Thought Process: Patient is goal-directed there is no evidence of loose association or flight of ideas Thought Content: Patient denies any auditory or visual hallucinations, continues to feel that people are not treating her well here both staff and other patients. Patient also remains religiously preoccupied although it is not as prominent today as it was earlier. Patient is sleeping and eating well. Patient states that she sorry that she came here, describes her sleep is being medicated sleep but cannot tell me what she means by that. She reported no side effects from her medications Suicidal/Homicidal Ideation: Patient denies any current suicidal or homicidal ideation Sensorium/Cognition: Patient is alert and oriented to person, place, and time Mood/Affect: And his mood is pleasant and her affect slightly blunted Insight/Judgment: Patient's insight and judgment are fair Assessment: Patient continues to voice thoughts of people are not treating her well here, she continues to remain religiously preoccupied although it is not as prominent during the interview. She reports that her sleep is restful but medicated. Patient is eating well. She is attending some groups and activities. Patient reported no side effects from her medication. Plan: Patient continues on Trilafon 12 mg 3 times a day, Lamictal 200 mg and Artane for side effects. Patient stated that she is planning on her discharge tomorrow and I discussed with her that she and Dr. Godfrey would be discussing her discharge plans upon his return tomorrow.
[2018-06-27] MEDS: MELOXICAM 7.5 MG TAB PO PRN (14:54)
[2018-06-27] MEDS: METOPROLOL SUCCINATE (ER) 25 MG TAB.ER.24H PO SCH (20:42)
[2018-06-28 06:03] VITALS: TEMP 97.8
[2018-06-28] MEDS: LEVOTHYROXINE 50 MCG TAB PO SCH (06:05)
[2018-06-28] MEDS: ISOSORBIDE MONONITRATE ER 30 MG TAB.ER.24H PO SCH (08:01)
[2018-06-28] MEDS: ASPIRIN 81 MG PO SCH (08:01)
[2018-06-28] MEDS: LORazepam 1 MG TAB PO SCH (08:01)
[2018-06-28] MEDS: TRIHEXYPHENIDYL 2 MG TAB PO SCH (08:01)
[2018-06-28] MEDS: FENOFIBRATE 160 MG TAB PO SCH (08:01)
[2018-06-28] MEDS: PANTOPRAZOLE 40 MG TABLET PO SCH (08:01)
[2018-06-28] MEDS: lamoTRIgine 100 MG TAB PO SCH (08:01)
[2018-06-28] MEDS: PERPHENAZINE 4 MG TAB PO SCH (08:01)
[2018-06-28] MEDS: MELOXICAM 7.5 MG TAB PO PRN (08:02)
[2018-06-28] MEDS: ATORVASTATIN 20 MG TAB PO SCH (08:02)
[2018-06-28] MEDS: metFORMIN 500 MG TAB PO SCH (08:02)
[2018-06-28] MEDS: BACITRACIN 500 UNIT/GM OINT 28.4 GM TUBE TOPICAL SCH (08:05)
[2018-06-28 08:43] VITALS: BP 111/68; PULSE 86; RESP 20
--- NOTE | 2018-06-28 09:45 | P.DS ---
Providers Date of admission: 06/09/18 17:51 Expected date of discharge: 06/28/18 Attending physician: Fabian Godfrey Consults: 06/09/18 18:38 Consult Physician Routine Consulting Provider: Sebas Doss Consult Reason/Comments: H&P Do you want consulting provider notified?: Yes Primary care physician: Astrid Nation MD - Discharge Diagnosis(es) (1) Schizoaffective disorder Current Visit: No Status: Acute Priority: High Hospital Course: Brief summary of admission note: This patient is a 32-year-old female who is known to my outpatient practice who was admitted for acute symptoms of psychosis. She has an existing diagnosis of schizoaffective disorder bipolar type. The patient had been experiencing an exacerbation of her psychosis that we were trying to control an outpatient setting unsuccessfully. She had been tried on numerous oral antipsychotics and we had recently just tried perphenazine. The patient was brought to the hospital as she seemed to be struggling with her overall psychosocial function and was admitted. For full details please refer to my psychiatric evaluation dated 01/2018. Summary of hospital course: The patient was admitted to the hospital on a petition and clinical certificate. A second clinical certificate was completed and a court hearing was held. The patient refused to attend the hearing but an order was granted. We decided to continue with perphenazine and the dose was titrated during the course of her stay she was maintained on Lamictal Artane and Ativan. The patient did demonstrate some improvement in terms of behavior while here. She is much more directable she has been pleasant she is attending to her activities of daily living. She is expressing no thoughts of harming herself or others. She does remain religiously preoccupied and does have general safety concerns as part of her baseline paranoid thinking. We did involve her daughter and mother in a support meeting last week to discuss her progress and treatment plan. It was becoming clear that we were not able to manage her successfully in my office and she required the resources of [facility] again. The patient had been part of [facility] for numerous years. The patient's family agreed she would do better at [facility] [place]. The patient was seen by internal medicine for routine history and physical exam. Due to the patient's recent weight loss her blood sugars have improved and they have been within normal limits. The patient has been compliant with medication area Mental status exam: The patient is an overweight female appearing her stated age. She is dressed in her own clothing. Hygiene and grooming are adequate. Speech is fluent and spontaneous nonpressured. She speaks softly at times. She is reporting no suicidal or homicidal ideation intent or plan. She does continue to have buddhism preoccupation to a delusional extent, she does continue to have some paranoid thinking. She demonstrates no verbal or physical aggressiveness. She demonstrates no abnormal involuntary movements. Her affect is smiling today. She endorses no hopelessness thinking and is happy to be discharged. She is oriented to person place and date. She is able to answer questions in a linear fashion she will provide some tangential thinking at times. She does not appear hypomanic or manic. Insight and judgment generally limited due to her baseline psychosis but it has improved during the admission. Impressions 1. Schizoaffective disorder bipolar type, anxiety unspecified 2. Insulin resistant diabetes, hypothyroidism, chronic pain, GERD, hyperlipidemia Plan: The patient is being discharged from the mental health unit today to return home. The patient's family have indicated that they will we keep close watch over her. She will be scheduled to follow up with [facility]. She will continue working with her primary care physician as needed. She will continue on perphenazine 12 mg 3 times daily, Artane twice daily, Lamictal 200 mg daily, Ativan 1 mg up to 3 times daily as needed. There is no imminent safety risk she is appropriate for transition back to outpatient care. Again she does have psychotic symptoms at baseline but we feel that she is demonstrates sufficient improvement to be discharged. It is explained to her again that she is on a treatment order. She is instructed to return to the hospital with any acute safety concerns. Patient Condition at Discharge: Stable Plan - Discharge Summary New Discharge Prescriptions: New Perphenazine [Trilafon] 12 mg PO TID #120 tab Trihexyphenidyl [Artane] 2 mg PO BID #60 tab Continue Metoprolol Succinate (ER) [Toprol XL] 12.5 mg PO HS Levothyroxine Sodium [Synthroid] 50 mcg PO QAM Omeprazole [PriLOSEC] 20 mg PO DAILY Fenofibrate [Lofibra] 160 mg PO QAM Meloxicam [Mobic] 7.5 - 15 mg PO DAILY PRN PRN Reason: Pain Isosorbide Mononitrate ER [Imdur] 30 mg PO DAILY #30 tab.er.24h Aspirin EC [Ecotrin Low Dose] 81 mg PO DAILY metFORMIN HCL [Glucophage] 500 mg PO BID Atorvastatin [Lipitor] 20 mg PO DAILY rOPINIRole HCL [Requip] 0.5 mg PO HS lamoTRIgine [LaMICtal] 200 mg PO DAILY #30 tablet LORazepam [Ativan] 1 mg PO TID #45 tab Discontinued Trihexyphenidyl HCl 2 mg PO BID Perphenazine [Trilafon] 4 mg PO BID Paliperidone [Invega] 3 mg PO DAILY Acyclovir 400 mg PO TID PRN PRN Reason: Cold Sores Discharge Medication List Levothyroxine Sodium [Synthroid] 50 mcg PO QAM 06/01/15 [History] Metoprolol Succinate (ER) [Toprol XL] 12.5 mg PO HS 06/01/15 [History] Omeprazole [PriLOSEC] 20 mg PO DAILY 06/01/15 [History] Fenofibrate [Lofibra] 160 mg PO QAM 10/22/15 [History] Meloxicam [Mobic] 7.5 - 15 mg PO DAILY PRN 01/10/17 [History] Isosorbide Mononitrate ER [Imdur] 30 mg PO DAILY #30 tab.er.24h 01/11/17 [Rx] Aspirin EC [Ecotrin Low Dose] 81 mg PO DAILY 05/25/17 [History] metFORMIN HCL [Glucophage] 500 mg PO BID 12/15/17 [History] Atorvastatin [Lipitor] 20 mg PO DAILY 03/07/18 [History] rOPINIRole HCL [Requip] 0.5 mg PO HS 06/09/18 [History] LORazepam [Ativan] 1 mg PO TID #45 tab 06/28/18 [Rx] Perphenazine [Trilafon] 12 mg PO TID #120 tab 06/28/18 [Rx] Trihexyphenidyl [Artane] 2 mg PO BID #60 tab 06/28/18 [Rx] lamoTRIgine [LaMICtal] 200 mg PO DAILY #30 tablet 06/28/18 [Rx] Follow up Appointment(s)/Referral(s): [facility] [Outside] - 1-2 Days Astrid Nation MD [Primary Care Provider] - 1-2 days Activity/Diet/Wound Care/Special Instructions: Keep your follow up appointments as scheduled. Continue your medications as prescribed. No alcohol or street drugs. No access to guns or weapons. Diet and activity as tolerated. Crisis line if needed .
== END 2018-06-28 12:26 | disposition home or self-care (01) | DRG 885 ==
LOC: EC 14:20 → 3MHU 17:51
PROVIDERS: ADMIT Psychiatry & Neurology Psychiatry; ATTEND Psychiatry & Neurology Psychiatry
DX: F25.0 Schizoaffective disorder, bipolar type (principal); N39.0 Urinary tract infection, site not specified; E11.40 Type 2 diabetes mellitus with diabetic neuropathy, unspecified; G40.909 Epilepsy, unspecified, not intractable, without status epilepticus; E03.9 Hypothyroidism, unspecified; E66.3 Overweight; E78.5 Hyperlipidemia, unspecified; F41.0 Panic disorder [episodic paroxysmal anxiety]; F43.10 Post-traumatic stress disorder, unspecified; F90.9 Attention-deficit hyperactivity disorder, unspecified type; G47.30 Sleep apnea, unspecified; G89.29 Other chronic pain; I10 Essential (primary) hypertension; K21.9 Gastro-esophageal reflux disease without esophagitis; I83.90 Asymptomatic varicose veins of unspecified lower extremity; M19.90 Unspecified osteoarthritis, unspecified site; Z68.32 Body mass index [BMI] 32.0-32.9, adult; Z79.890 Hormone replacement therapy; Z79.82 Long term (current) use of aspirin; Z79.84 Long term (current) use of oral hypoglycemic drugs; Z79.899 Other long term (current) drug therapy; Z88.1 Allergy status to other antibiotic agents; Z88.5 Allergy status to narcotic agent; Z88.2 Allergy status to sulfonamides; Z88.8 Allergy status to other drugs, medicaments and biological substances; Z87.442 Personal history of urinary calculi; Z82.3 Family history of stroke; Z82.5 Family history of asthma and other chronic lower respiratory diseases
CPT/HCPCS: 80053; 80061; 80306; 81001; 82075; 83036; 84443; 85025; 99284

== ENCOUNTER → 2019-02-16 | Outpatient (CLI) | payer MEDICARE ==
--- NOTE | 2019-02-17 10:56 | MM ---
Reason for exam: screening (asymptomatic). Last mammogram was performed 1 year and 2 months ago. History: Patient is postmenopausal. Took hormonal contraceptives for 1 year. Physical Findings: A clinical breast exam by your physician is recommended on an annual basis and results should be correlated with mammographic findings. MG Screening Mammo w CAD Bilateral CC and MLO view(s) were taken. Prior study comparison: December 23, 2017, bilateral MG 3d screening mammo w/cad. August 16, 2015, bilateral MG screening mammo w CAD. The breast tissue is heterogeneously dense. This may lower the sensitivity of mammography. There is chronic nodularity bilaterally. No significant changes when compared with prior studies. ASSESSMENT: Benign, BI-RAD 2 RECOMMENDATION: Routine screening mammogram of both breasts in 1 year.
== END ==
LOC: RADMAMWWP 13:18
PROVIDERS: ATTEND Family Medicine
DX: Z12.31 Encounter for screening mammogram for malignant neoplasm of breast (principal)
CPT/HCPCS: 77067

== ENCOUNTER → 2019-04-07 | Outpatient (CLI) | payer MEDICARE, OTHER ==
[2019-04-07 16:04] LABS: Basophils % (A) 1 %; Eosinophils # (A) 0.2 k/uL (0-0.7); Eosinophils % (A) 3 %; HCT 36.3 % (34.0-46.0); HGB 11.3 gm/dL (11.4-16.0); Lymphocytes # (A) 2.1 k/uL (1.0-4.8); Lymphocytes % (A) 31 %; MCH 23.5 pg (25.0-35.0); MCHC 31.1 g/dL (31.0-37.0); MCV 75.7 fL (80.0-100.0); Mean Platelet Volume 6.8; Microcytosis Slight; Monocytes # (A) 0.4 k/uL (0-1.0); Monocytes % (A) 6 %; Neutrophils # (A) 3.9 k/uL (1.3-7.7); Neutrophils % (A) 58 %; Platelet Count 308 k/uL (150-450); RBC 4.79 m/uL (3.80-5.40); RDW 15.2 % (11.5-15.5); WBC 6.8 k/uL (3.8-10.6)
== END | disposition home or self-care (01) ==
LOC: LABPAT 15:03
PROVIDERS: ATTEND Obstetrics & Gynecology Obstetrics
DX: Z01.818 Encounter for other preprocedural examination (principal); R87.619 Unspecified abnormal cytological findings in specimens from cervix uteri; E11.9 Type 2 diabetes mellitus without complications; I10 Essential (primary) hypertension; Z01.812 Encounter for preprocedural laboratory examination
CPT/HCPCS: 85025; 93005

== ENCOUNTER 2019-04-11 08:38 | Day surgery (SDC) | payer MEDICARE, OTHER ==
[2019-04-06 13:25] VITALS: BMI 29.4
--- NOTE | 2019-04-07 10:29 | HP ---
HISTORY AND PHYSICAL Preoperative history and physical for surgery on 04/11/2019. Primary Care Provider: Dr. Astrid Nation. HPI: This is a pleasant 63-year-old female with known SHIVAM Pap smear who underwent endometrial biopsy/colposcopy both negative in nature. She presented on March 06 for followup on this SHIVAM Pap smear, re-Pap done today. Pap was consistent with SHIVAM once again. She denies any postmenopausal bleeding and had no other complaints on this visit. PAST MEDICAL HISTORY: 1. Arthralgia. 2. ADD. 3. Bipolar. 4. Degenerative discs. 5. Depression. 6. Diabetes type 2. 7. Diabetic neuropathy. 8. GERD. 9. Hypertension. 10.Hypertriglyceridemia. 11.Hypothyroidism. 12.Neuropathy. 13.Obesity. 14.Osteoarthritis. 15.Peripheral neuropathy. 16.Schizoaffective disorder. 17.Seizure disorder. 18.Sleep apnea. 19.Tricuspid regurgitation. PAST SURGICAL HISTORY: 1. Significant for a done in 1997 for breech presentation. 2. Colonoscopy. 3. Ear surgery. 4. Rhinoplasty. 5. Septoplasty. 6. Termination of done in 1975. MEDICATION LIST: 1. She is on aspirin. 2. Isosorbide mononitrate 30 mg daily. 3. Levothyroxine 50 mcg daily. 4. Lipitor 20 mg daily. 5. Meloxicam 7.5 mg daily. 6. Metformin 500 mg 1 tablet orally 2 times daily. 7. Metoprolol succinate 25 mg extended release 1 daily. 8. Olanzapine 20 mg daily. 9. Omeprazole 20 mg 1 capsule daily before meal. 10.Requip 0.5 mg. ALLERGIES: She is allergic to BUSPAR, CODEINE, GABAPENTIN, MELLARIL, SEROQUEL, SULFA, TOFRANIL. FAMILY MEDICAL HISTORY: Significant for CVA in her father, hypertension/diabetes type 2 in her mother, thyroid disease in her mother in addition. REPRODUCTIVE HISTORY: Her last menstrual period was in 2006. She is a 2, para 1-0-1-1 with a C- section done in 1997 for breech presentation. SOCIAL HISTORY: She is a nonsmoker. She denies alcohol or illicit drug use. REVIEW OF SYSTEMS: She denies fevers, chills, nausea, vomiting. Denies urinary urgency or frequency. Denies postmenopausal bleeding. Vitals were stable on this visit. PHYSICAL EXAMINATION: In general, this is a well-nourished, well-developed, alert female in no acute distress. Her heart is noted to have a regular rate and rhythm. Her lungs are noted to be clear to auscultation. Breathing is nonlabored. On GI exam, her abdomen is noted to be soft and nontender. Genitourinary: Her external genitalia is noted to be normal with no lesions or irritation. Her vagina is noted to be normal and atrophic for age. Her bladder is noted to be nontender. Her urethra is normal. Her cervix appears normal. Her uterus is normal size and nontender and mobile. There are no adnexal masses appreciated. ASSESSMENT: SHIVAM Pap smear. PLAN: Plan will be hysteroscopy, D and C with colposcopy for further evaluation and rule out endometrial pathology. Surgery was reviewed with the patient. She states understanding and wishes to proceed. Risks were reviewed including uterine perforation, bleeding, infection, or damage to other pelvic structures. Patient stated understanding and wishes to proceed. MMODL / IJN: [id number] /
[~2019-04-11 08:38] MED LIST: DEXAMETHASONE SOD PHOSPHATE 10 MG/ML 1 ML VIAL IV ONE; LACTATED RINGERS 1,000 ML IV SCH; MIDAZOLAM 2 MG/2 ML VIAL IV PRN; ONDANSETRON 4 MG/2 ML VIAL IVP ONE; Pre Op ABX Message 1 EACH MISC MISCELLANE ONE; SCOPOLAMINE 1.5MG/72HR PATCH TRANSDERM ONE; fentaNYL (PF) 50 MCG/ML 2 ML AMP IV PRN
[2019-04-11 09:00] VITALS: RESP 16
[2019-04-11] MEDS ORDERED: LIDOCAINE 1% 20 ML VIAL (10MG/ML) FOR IV START INTRADERMA ONE (09:10)
[2019-04-11 09:13] LABS: Glucose,Whole Blood 110 mg/dL (75-99)
[2019-04-11] MEDS ORDERED: KETOROLAC 30 MG/ML 1 ML VIAL ONE (09:53)
[2019-04-11] MEDS ORDERED: fentaNYL (PF) 50 MCG/ML 2 ML AMP ONE (09:53)
[2019-04-11] MEDS ORDERED: MIDAZOLAM 2 MG/2 ML VIAL ONE (09:53)
[2019-04-11] MEDS ORDERED: LIDOCAINE 1% INJ 10MG/ML (20 ML MDV) ONE (09:53)
[2019-04-11] MEDS ORDERED: PROPOFOL 10 MG/ML 20 ML VIAL IV ONE (09:53)
[2019-04-11] MEDS ORDERED: ACETIC ACID 15 DROPS/ML DROPS MISCELLANE ONE (10:17)
[2019-04-11] MEDS ORDERED: FERRIC SUBSULFATE (MONSELS) JAR TOPICAL ONE (10:23)
--- NOTE | 2019-04-11 10:28 | P.OP ---
Date of Procedure: 04/11/19 Preoperative Diagnosis: SHIVAM Postoperative Diagnosis: Same Procedure(s) Performed: Hysteroscopy, dilation and curettage, colposcopy with biopsies Surgeon: Aurea Salgado Estimated Blood Loss (ml): 5 IV fluids (ml): 300 Urine output (ml): 150 Pathology: other (Endometrial curettings, cervical biopsies x 2 10, 2) Condition: stable Disposition: PACU Indications for Procedure: SHIVAM Pap smear Operative Findings: Postmenopausal appearing endometrial cavity, normal cervical epithelium Description of Procedure: Patient was seen in the preoperative area procedure was reviewed questions were answered and informed consent was obtained. Patient was taken to the operating suite where general anesthesia was obtained without difficulty by the anesthesia department. She was prepped and draped in normal sterile fashion in the dorsal lithotomy position [place] catheter was used to drain the bladder of clear yellow urine. A weighted speculum posterior vaginal vault the interval of the cervix is visualized and grasped with a single-tooth tenaculum. Endocervical canal was then dilated and hysteroscope was placed through the cervix and toward the endometrial cavity and atrophic cavity was noted the hysteroscope was removed after pictures were taken and sharp curettage was performed minimal tissue was obtained. At this point the acid was placed on the cervix no abnormalities were noted random biopsies were taken at 10 and 2 Monsel's was placed on the biopsy sites for hemostasis. Hemostasis was appreciated. All instrument were removed from the patient's vaginal vault ARE correct 2 pa tient was taken the recovery room awake in stable condition.
[2019-04-11 10:47] VITALS: TEMP 97
[2019-04-11 11:26] LABS: Glucose,Whole Blood 98 mg/dL (75-99)
[2019-04-11 12:05] VITALS: BP 144/82; PULSE 88
== END 2019-04-11 12:16 | disposition home or self-care (01) ==
LOC: OR 08:38
PROVIDERS: ATTEND Obstetrics & Gynecology Obstetrics
DX: N88.8 Other specified noninflammatory disorders of cervix uteri (principal); R89.6 Abnormal cytological findings in specimens from other organs, systems and tissues; M25.50 Pain in unspecified joint; E11.42 Type 2 diabetes mellitus with diabetic polyneuropathy; F98.8 Other specified behavioral and emotional disorders with onset usually occurring in childhood and adolescence; F31.9 Bipolar disorder, unspecified; K21.9 Gastro-esophageal reflux disease without esophagitis; I25.10 Atherosclerotic heart disease of native coronary artery without angina pectoris; I10 Essential (primary) hypertension; E78.1 Pure hyperglyceridemia; E03.9 Hypothyroidism, unspecified; E78.5 Hyperlipidemia, unspecified; E66.9 Obesity, unspecified; Z68.29 Body mass index [BMI] 29.0-29.9, adult; M19.90 Unspecified osteoarthritis, unspecified site; F25.9 Schizoaffective disorder, unspecified; G47.30 Sleep apnea, unspecified; I07.1 Rheumatic tricuspid insufficiency; G40.909 Epilepsy, unspecified, not intractable, without status epilepticus; Z83.3 Family history of diabetes mellitus; Z83.49 Family history of other endocrine, nutritional and metabolic diseases; Z82.3 Family history of stroke; Z79.84 Long term (current) use of oral hypoglycemic drugs; Z79.82 Long term (current) use of aspirin; Z79.1 Long term (current) use of non-steroidal anti-inflammatories (NSAID); Z79.890 Hormone replacement therapy; Z79.899 Other long term (current) drug therapy; Z88.5 Allergy status to narcotic agent; Z88.2 Allergy status to sulfonamides; Z88.8 Allergy status to other drugs, medicaments and biological substances
CPT/HCPCS: 88305; 58558; J2250; J1100; J2405; J2001; J3010; J1885; J2704

== ENCOUNTER → 2019-05-02 | Outpatient (CLI) | payer MEDICARE, OTHER | END | disposition home or self-care (01) | LOC: LABWHC1 08:44 | PROVIDERS: ATTEND Family Medicine | DX: Z53.9 Procedure and treatment not carried out, unspecified reason (principal) ==

== ENCOUNTER → 2019-05-15 | Outpatient (CLI) | payer MEDICARE, OTHER ==
--- NOTE | 2019-05-15 10:04 | MR ---
EXAMINATION TYPE: MR brain wo con DATE OF EXAM: 05/15/2019 COMPARISON: 08/10/2017 HISTORY: Mild cognitive impairment, so stated TECHNIQUE: T1-weighted sagittal, T2, FLAIR, and diffusion axial, and T2 coronal coronal views of the brain are submitted. FINDINGS: There is no evidence of acute ischemia. The ventricles, basal cisterns, and sulci overlying the conv exities are consistent with mild degenerative change of the greater frontal lobe component. There are faint areas of abnormal signal within the white matter in the periventricular region which are stabl e, nonspecific and most typical remote microvascular ischemia. Marked focal punctate area in the left frontal lobe.. There is no mass effect. Craniocervical junction maintained. There is a partially empty sella turcica.. No cerebellopontine angle mass. Changes of chronic sinusitis noted. IMPRESSION: 1. No acute intracranial process. 2. Degenerative and nonspecific white matter changes most typical remote microvascular ischemia is st able relative to the prior exam.
== END | disposition home or self-care (01) ==
LOC: RADMRIMAIN 09:11
PROVIDERS: ATTEND Psychiatry & Neurology Neurology
DX: G31.9 Degenerative disease of nervous system, unspecified (principal); R90.89 Other abnormal findings on diagnostic imaging of central nervous system
CPT/HCPCS: 70551

== ENCOUNTER → 2020-05-13 | Outpatient (CLI) | payer MEDICARE ==
--- NOTE | 2020-05-15 13:40 | MM ---
Reason for exam: screening (asymptomatic). Last mammogram was performed 1 year and 3 months ago. History: Patient is postmenopausal. Took hormonal contraceptives for 1 year. Physical Findings: A clinical breast exam by your physician is recommended on an annual basis and results should be correlated with mammographic findings. MG 3D Screening Mammo W/Cad Bilateral CC and MLO view(s) were taken. Prior study comparison: February 16, 2019, bilateral MG screening mammo w CAD. December 23, 2017, bilateral MG 3d screening mammo w/cad. The breast tissue is heterogeneously dense. This may lower the sensitivity of mammography. No significant changes when compared with prior studies. ASSESSMENT: Negative, BI-RAD 1 RECOMMENDATION: Routine screening mammogram of both breasts in 1 year.
== END | disposition home or self-care (01) ==
LOC: RADMAMWWP 16:13
PROVIDERS: ATTEND Internal Medicine
DX: Z12.31 Encounter for screening mammogram for malignant neoplasm of breast (principal)
CPT/HCPCS: 77063; 77067

== ENCOUNTER → 2020-11-18 | Outpatient (CLI) | payer MEDICARE ==
--- NOTE | 2020-11-18 15:13 | CT ---
EXAMINATION TYPE: CT chest wo con DATE OF EXAM: 11/18/2020 COMPARISON: Chest x-ray March 23, 2018 HISTORY: Atypical pneumonia per order CT DLP: 981.7 mGycm. Automated Exposure Control for Dose Reduc tion was Utilized. TECHNIQUE: CT scan of the thorax is performed without IV contrast. High resolution CT with 1 mm sequ ences obtained in 10 mm intervals in supine and prone technique. FINDINGS: The technique is noted to make evaluation for nodules suboptimal. LUNGS: Subcentimeter nodule right upper lung suspected series 4 measures 9. Focal interlobular septal thickening in the right mid lung. Additional mild areas of linear scarring in both bases just above diaphragm. No pleural effusion or pneumothorax seen bilaterally. No suspicious masses. No bronchiecta sis. No suspicious focal consolidation. MEDIASTINUM: Lack of IV contrast and tachypneic are noted to limit evaluation for mediastinal and rocky ecially hilar adenopathy. There are no definitive greater than 1 cm hilar or mediastinal lymph nodes. No cardiomegaly or pericardial effusion is seen. Moderate-sized hiatal hernia. OTHER: Multilevel spurring in the thoracic spine. IMPRESSION: No suspicious focal consolidation or groundglass opacity. No suspicious focal reticulonod ular infiltrates. Mild chronic parenchymal changes.
== END | disposition home or self-care (01) ==
LOC: RADCTMAIN 14:31
PROVIDERS: ATTEND Internal Medicine Critical Care Medicine
DX: J98.4 Other disorders of lung (principal)
CPT/HCPCS: 71250

== ENCOUNTER 2020-12-22 11:59 | Observation (INO) | payer MEDICARE, OTHER ==
--- NOTE | 2020-12-22 12:28 | ED ---
General Adult HPI - General Chief complaint: Chest Pain Stated complaint: chest pain, dizziness Time Seen by Provider: 12/22/20 12:04 Source: patient, RN notes reviewed, old records reviewed Mode of arrival: EMS Limitations: no limitations - History of Present Illness Initial comments: 65-year-old female presenting for evaluation of chest pain, headache. Patient has had pain for the past one month. She was seen at urgent care today and sent to the emergency department for evaluation. She had been given 325 mg of aspirin prior to transfer. She states she's had intermittent headache status post fall which has been treated well at home with Tylenol. She currently has no headache. Second complaint is chest discomfort which is been ongoing for at least one month. She states she does normally have some palpitations and chest pain. She reports some nausea, no diaphoresis. No vomiting. No abdominal pain. No focal numbness or weakness. - Related Data Home Medications Medication Instructions Recorded Confirmed Levothyroxine Sodium [Synthroid] 50 mcg PO QAM 06/01/15 12/22/20 Meloxicam [Mobic] 7.5 mg PO BID PRN 01/10/17 12/22/20 metFORMIN HCL [Glucophage] 500 mg PO BID 12/15/17 12/22/20 Atorvastatin [Lipitor] 20 mg PO HS 03/07/18 12/22/20 rOPINIRole HCL [Requip] 0.5 mg PO HS 06/09/18 12/22/20 lamoTRIgine [LaMICtal] 200 mg PO QAM 04/06/19 12/22/20 Albuterol Sulfate [Ventolin HFA] 1 - 2 puff INHALATION RT-Q6H PRN 12/22/20 12/22/20 Cyclobenzaprine [Flexeril] 5 mg PO BID PRN 12/22/20 12/22/20 Ergocalciferol [Vitamin D2 (1250 1,250 mcg PO Q7D 12/22/20 12/22/20 Mcg = 83305 Iu)] Ferrous Sulfate [Feosol] 325 mg PO DAILY 12/22/20 12/22/20 [place] Carbonate 300 mg PO BID 12/22/20 12/22/20 Oxybutynin Chloride [Ditropan] 5 mg PO BID 12/22/20 12/22/20 Pantoprazole Sodium [Protonix] 40 mg PO DAILY 12/22/20 12/22/20 Triamcinolone 0.1% Cream [Kenalog 1 applicatio TOPICAL BID PRN 12/22/20 12/22/20 0.1% Cream] Ziprasidone [Geodon] 80 mg PO BID 12/22/20 12/22/20 atenoloL [Atenolol] 12.5 mg PO DAILY 12/22/20 12/22/20 clonazePAM [KlonoPIN] 0.5 mg PO TID PRN 12/22/20 12/22/20 fluvoxaMINE MALEATE 50 mg PO QID 12/22/20 12/22/20 traZODone HCL [Desyrel] 200 mg PO HS 12/22/20 12/22/20 Allergies Allergy/AdvReac Type Severity Reaction Status Date / Time amoxicillin Allergy Rash/Hives Verified 12/22/20 13:47 codeine Allergy Unknown Verified 12/22/20 13:47 Sulfa (Sulfonamide Allergy Unknown Verified 12/22/20 13:47 Antibiotics) sulfamethoxazole Allergy Unknown Verified 12/22/20 13:47 [From Bactrim] thioridazine [From Mellaril] Allergy Unknown Verified 12/22/20 13:47 trimethoprim [From Bactrim] Allergy Unknown Verified 12/22/20 13:47 Review of Systems ROS Statement: Those systems with pertinent positive or pertinent negative responses have been documented in the HPI. ROS Other: All systems not noted in ROS Statement are negative. Past Medical History Past Medical History: Chest Pain / Angina, Diabetes Mellitus, Eye Disorder, GERD/Reflux, Hyperlipidemia, Hypertension, Memory Impairment, Myocardial Infarction (NH), Osteoarthritis (OA), Seizure Disorder, Sleep Apnea/CPAP/BIPAP, Thyroid Disorder Additional Past Medical History / Comment(s): SINUSITIS. PAST SEIZURE, PT STATED WAS DUE TO MEDICATIONS SHE WAS ON 20 yrs ago. VARICOSE VEINS, NEUROPATHY, has CPAP machine but does not use it. Episodes of lightheadedness and dizziness when rising, X1 yr. Short term memory impairment, cataracts. Last Myocardial Infarction Date:: 2016 History of Any Multi-Drug Resistant Organisms: None Reported Past Surgical History: Section Additional Past Surgical History / Comment(s): Nasal Surgery. Past Anesthesia/Blood Transfusion Reactions: Motion Sickness Past Psychological History: ADD/ADHD, Anxiety, Bipolar, Depression, Schizoaffective Disorder Smoking Status: Never smoker Past Alcohol Use History: None Reported Past Drug Use History: None Reported - Past Family History Father Family Medical History: CVA/TIA Additional Family Medical History / Comment(s): SMOKED AND USED ETOH- AGE 78- FROM STROKE Mother Additional Family Medical History / Comment(s): CRONIC BRONCHITIS.REMOVED PART OF ONE LUNG d/t the bronchitis infection General Exam Limitations: no limitations General appearance: alert, in no apparent distress Head exam: Present: atraumatic, normocephalic Eye exam: Present: normal appearance, PERRL ENT exam: Present: normal exam Neck exam: Present: normal inspection. Absent: tenderness, meningismus Respiratory exam: Present: normal lung sounds bilaterally. Absent: respiratory distress, wheezes Cardiovascular Exam: Present: regular rate, normal rhythm GI/Abdominal exam: Present: soft. Absent: distended, tenderness, guarding Extremities exam: Present: normal inspection, normal capillary refill. Absent: pedal edema, calf tenderness Neurological exam: Present: alert, oriented X3, CN II-XII intact. Absent: motor sensory deficit Psychiatric exam: Present: normal affect, normal mood Skin exam: Present: warm, dry, intact. Absent: cyanosis, diaphoretic Course Vital Signs 12/22/20 12/22/20 12/22/20 12:00 12:42 12:46 Temperature 98.4 F Pulse Rate 77 68 Pulse Rate [ 68 Cafe Lead ] Respiratory 17 16 16 Rate Blood Pressure 138/86 116/77 O2 Sat by Pulse 98 98 Oximetry 12/22/20 13:45 Temperature Pulse Rate 69 Pulse Rate [ Cafe Lead ] Respiratory 16 Rate Blood Pressure 117/73 O2 Sat by Pulse 98 Oximetry EKG Findings - EKG Comments: EKG Findings:: EKG: Normal sinus rhythm, rate 68, OR interval 162, QRS duration 82, QTC 452, no ST segment elevation. Medical Decision Making - Medical Decision Making 65-year-old female presenting for intermittent chest pain, central nonradiating. EKG sinus rhythm without ST segment elevation. Chest x-ray and a for acute cardio pulmonary disease, normal CBC, normal CMP, negative troponin. Did perform a head CT given the patient's complaint of headache and head trauma. This is negative for intracranial hemorrhage or mass effect. She may given aspirin prior to arrival. Her symptoms are resolved on reevaluation. She will be admitted for chest pain rule out. Case discussed with Dr. Johnson who will admit. - Lab Data Result diagrams: 12/22/20 12:39 12/22/20 12:39 Lab Results 12/22/20 12/22/20 12/22/20 Range/Units 12:39 12:39 12:39 WBC 8.3 (3.8-10.6) k/uL RBC 5.49 H (3.80-5.40) m/uL Hgb 13.5 (11.4-16.0) gm/dL Hct 41.4 (34.0-46.0) % MCV 75.4 L (80.0-100.0) fL MCH 24.5 L (25.0-35.0) pg MCHC 32.5 (31.0-37.0) g/dL RDW 17.0 H (11.5-15.5) % Plt Count 239 (150-450) k/uL MPV 6.7 Neutrophils % 63 % Lymphocytes % 27 % Monocytes % 4 % Eosinophils % 4 % Basophils % 1 % Neutrophils # 5.2 (1.3-7.7) k/uL Lymphocytes # 2.2 (1.0-4.8) k/uL Monocytes # 0.4 (0-1.0) k/uL Eosinophils # 0.3 (0-0.7) k/uL Basophils # 0.1 (0-0.2) k/uL Anisocytosis Slight Microcytosis Slight PT 9.9 (9.0-12.0) sec INR 0.9 (<1.2) APTT 18.9 L (22.0-30.0) sec Sodium 139 (137-145) mmol/L Potassium 4.6 (3.5-5.1) mmol/L Chloride 103 (98-107) mmol/L Carbon Dioxide 26 (22-30) mmol/L Anion Gap 10 mmol/L BUN 20 H (7-17) mg/dL Creatinine 1.07 H (0.52-1.04) mg/dL Est GFR (CKD-EPI)AfAm 64 (>60 ml/min/1.73 sqM) Est GFR (CKD-EPI)NonAf 56 (>60 ml/min/1.73 sqM) Glucose 102 H (74-99) mg/dL Calcium 9.6 (8.4-10.2) mg/dL Magnesium 2.1 (1.6-2.3) mg/dL Total Bilirubin 0.3 (0.2-1.3) mg/dL AST 21 (14-36) U/L ALT 34 (4-34) U/L Alkaline Phosphatase 82 (38-126) U/L Troponin I (0.000-0.034) ng/mL NT-Pro-B Natriuret Pep pg/mL Total Protein 6.7 (6.3-8.2) g/dL Albumin 4.2 (3.5-5.0) g/dL Lipase 158 (23-300) U/L 12/22/20 12/22/20 Range/Units 12:39 12:39 WBC (3.8-10.6) k/uL RBC (3.80-5.40) m/uL Hgb (11.4-16.0) gm/dL Hct (34.0-46.0) % MCV (80.0-100.0) fL MCH (25.0-35.0) pg MCHC (31.0-37.0) g/dL RDW (11.5-15.5) % Plt Count (150-450) k/uL MPV Neutrophils % % Lymphocytes % % Monocytes % % Eosinophils % % Basophils % % Neutrophils # (1.3-7.7) k/uL Lymphocytes # (1.0-4.8) k/uL Monocytes # (0-1.0) k/uL Eosinophils # (0-0.7) k/uL Basophils # (0-0.2) k/uL Anisocytosis Microcytosis PT (9.0-12.0) sec INR (<1.2) APTT (22.0-30.0) sec Sodium (137-145) mmol/L Potassium (3.5-5.1) mmol/L Chloride (98-107) mmol/L Carbon Dioxide (22-30) mmol/L Anion Gap mmol/L BUN (7-17) mg/dL Creatinine (0.52-1.04) mg/dL Est GFR (CKD-EPI)AfAm (>60 ml/min/1.73 sqM) Est GFR (CKD-EPI)NonAf (>60 ml/min/1.73 sqM) Glucose (74-99) mg/dL Calcium (8.4-10.2) mg/dL Magnesium (1.6-2.3) mg/dL Total Bilirubin (0.2-1.3) mg/dL AST (14-36) U/L ALT (4-34) U/L Alkaline Phosphatase (38-126) U/L Troponin I <0.012 (0.000-0.034) ng/mL NT-Pro-B Natriuret Pep 25 pg/mL Total Protein (6.3-8.2) g/dL Albumin (3.5-5.0) g/dL Lipase (23-300) U/L Disposition Clinical Impression: Chest pain Disposition: ADMITTED IP TO THIS HOSP Condition: Stable Is patient prescribed a controlled substance at d/c from ED?: No Referrals: Analia Boogie MD [Primary Care Provider] - 1-2 days Decision to Admit Reason: Admit from EC Decision Date: 12/22/20 Decision Time: 14:28
[2020-12-22 12:49] LABS: Anisocytosis Slight; Basophils # (A) 0.1 k/uL (0-0.2); Basophils % (A) 1 %; Eosinophils # (A) 0.3 k/uL (0-0.7); Eosinophils % (A) 4 %; HCT 41.4 % (34.0-46.0); HGB 13.5 gm/dL (11.4-16.0); Lymphocytes # (A) 2.2 k/uL (1.0-4.8); Lymphocytes % (A) 27 %; MCH 24.5 pg (25.0-35.0); MCHC 32.5 g/dL (31.0-37.0); MCV 75.4 fL (80.0-100.0); Mean Platelet Volume 6.7; Microcytosis Slight; Monocytes # (A) 0.4 k/uL (0-1.0); Monocytes % (A) 4 %; Neutrophils # (A) 5.2 k/uL (1.3-7.7); Neutrophils % (A) 63 %; Platelet Count 239 k/uL (150-450); RBC 5.49 m/uL (3.80-5.40); WBC 8.3 k/uL (3.8-10.6)
[2020-12-22 12:58] LABS: Albumin 4.2 g/dL (3.5-5.0); Calcium 9.6 mg/dL (8.4-10.2); Magnesium 2.1 mg/dL (1.6-2.3); Potassium 4.6 mmol/L (3.5-5.1); Total Bilirubin 0.3 mg/dL (0.2-1.3); Total Protein 6.7 g/dL (6.3-8.2)
--- NOTE | 2020-12-22 13:12 | CT ---
EXAMINATION TYPE: CT brain wo con DATE OF EXAM: 12/22/2020 COMPARISON: 02/14/2013. HISTORY: Fall/Headache CT DLP: 1092.4 mGycm Automated exposure control for dose reduction was used. FINDINGS: There is no acute intracranial hemorrhage, midline shift or hydrocephalus. The white matter is grossl y preserved. The paranasal sinuses and mastoid air cells are adequately aerated. The calvarium is int act. IMPRESSION: NO ACUTE INTRACRANIAL ABNORMALITY.
--- NOTE | 2020-12-22 13:18 | XR ---
EXAMINATION TYPE: XR chest 2V DATE OF EXAM: 12/22/2020 COMPARISON: NONE HISTORY: Chest pain. TECHNIQUE: Frontal and lateral views of the chest are obtained. FINDINGS: There is no focal air space opacity, pleural effusion, or pneumothorax seen. The cardiac silhouette size is within normal limits. The osseous structures are intact. IMPRESSION: No acute cardiopulmonary process.
[2020-12-22 13:21] LABS: INR 0.9 (<1.2); Prothrombin Time 9.9 sec (9.0-12.0)
[2020-12-22] MEDS ORDERED: MORPHINE SULFATE 2 MG/ML SYRINGE IVP STA (13:23)
[2020-12-22] MEDS ORDERED: ONDANSETRON 4 MG TAB PO STA (13:25)
[2020-12-22 13:28] LABS: Partial Thromboplastin Time 18.9 sec (22.0-30.0)
[2020-12-22] MEDS ORDERED: ACETAMINOPHEN TAB 325 MG TAB PO PRN (14:26)
[2020-12-22] MEDS ORDERED: NALOXONE 0.4 MG/ML 1 ML VIAL IV PRN (14:26)
[2020-12-22] MEDS ORDERED: ONDANSETRON 4 MG/2 ML VIAL IVP PRN (14:26)
[2020-12-22] MEDS ORDERED: TRIAMCINOLONE 0.1% CREAM 80 GM TUBE TOPICAL PRN (15:14)
[2020-12-22] MEDS ORDERED: ALBUTEROL NEBULIZED 2.5 MG/3 ML INHALATION PRN (15:14)
[2020-12-22] MEDS ORDERED: clonazePAM 0.5 MG TAB PO PRN (15:14)
[2020-12-22] MEDS ORDERED: MELOXICAM 7.5 MG TAB PO PRN (15:14)
[2020-12-22] MEDS ORDERED: CYCLOBENZAPRINE 5 MG TAB PO PRN (15:14)
[2020-12-22] MEDS ORDERED: ALPRAZolam 0.25 MG TAB PO PRN (15:16)
--- NOTE | 2020-12-22 16:23 | HP ---
HISTORY AND PHYSICAL DATE OF SERVICE: 12/22/2020. CHIEF COMPLAINT: Chest pain. HISTORY OF PRESENT ILLNESS: This 65-year-old woman with a past medical history of multiple medical problems including history of diabetes mellitus, history of GERD, hyperlipidemia, history of seizure disorder, being followed by Dr. Boogie in the outpatient setting, was complaining of chest pain. The patient has on and off chest pain, headache, and other symptoms for the last one month. The patient was seen in Urgent Care today and the patient was given aspirin and the patient was subsequently transferred to [facility] for further evaluation and treatment. There is no history of fever, rigors. No history of headache, loss of consciousness, seizures. Evaluation in the ER showed some microcytosis. Creatinine elevated to 1.07. Troponins normal and the EKG showed normal sinus rhythm. No acute changes and CT of the brain and chest x-ray was also noted which was showed no acute abnormality. Patient admitted to the hospital for further evaluation and treatment. PAST MEDICAL HISTORY: Previous chest pain, diabetes type 2, history of GERD, hypertension, hyperlipidemia, history of myocardial infarction, history of DJD, seizure disorder, sleep apnea. MEDICATIONS: Home medications are trazodone, Requip, Glucophage, Lamictal, fluoxetine, Klonopin, atenolol, Geodon, Kenalog, Protonix, Ditropan, Mobic, lithium carbonate, Synthroid, iron sulfate, vitamin D2, Flexeril. Lipitor and Ventolin. ALLERGIES: AMOXICILLIN, CODEINE, SULFA, FAMILY HISTORY: History of CVA, TIA and smoking. SOCIAL HISTORY: No history of smoking. No history of alcohol. REVIEW OF SYSTEMS: ENT: No diminished vision. No diminished hearing. CARDIOVASCULAR SYSTEM: As mentioned earlier. RESPIRATORY: As mentioned earlier. GI: No nausea or vomiting. : No dysuria or hematuria. NERVOUS SYSTEM: No numbness or weakness. ALLERGY/IMMUNOLOGY: No asthma or hayfever. MUSCULOSKELETAL as mentioned earlier. HEMATOLOGY/ONCOLOGY: No history of anemia. ENDOCRINE: History of diabetes, no hypothyroidism. CONSTITUTIONAL: As mentioned earlier. DERMATOLOGY: Negative. RHEUMATOLOGY: Negative. PSYCHIATRIC: As mentioned earlier. PHYSICAL EXAMINATION: Alert and oriented times three. Pulse 69, blood pressure 117/73, respirations 16, temperature normal, pulse ox 98% on room air. HEENT: Conjunctivae normal. Oral mucosa moist. NECK is no jugular venous distention. No carotid bruit. No lymph node enlargement. CARDIOVASCULAR system: S1, S2. No S3, no S4. RESPIRATORY: Breath sounds diminished in the bases. No rhonchi. No crackles. ABDOMEN: Soft, nontender. No mass palpable. LEGS: No edema. No swelling. NERVOUS system: Higher functions as mentioned earlier. Moves all four limbs. No focal motor or sensory deficits. LYMPHATICS: No lymph nodes palpable in the neck, axillae or groin. SKIN: No ulcer, no rashes and no bleeding. JOINTS: No active deforming arthropathy. LABS: WBC 8.3, hemoglobin 13.5. APTT 18.9, creatinine is 1.07. ASSESSMENT: 1. Chest pain possible unstable angina. 2. Elevated creatinine with possible mild acute renal failure, acute prerenal acute tubular necrosis and dehydration. 3. History of diabetes type 2. 4. History of previous chest pain and negative dobutamine stress echo. 5. Gastroesophageal reflux disease. 6. Hypertension. 7. Hyperlipidemia. 8. Memory impairment. 9. History of myocardial infarction. 10.History of degenerative joint disease. 11.History of seizure disorder. 12.Sleep apnea. 13.Hypothyroidism. 14.Sinusitis. 15.History of section. 16.History of attention-deficit disorder, attention-deficit/hyperactivity disorder. 17.Anxiety/bipolar depression/schizoaffective disorder. 18.Obesity with body mass of 34.5. RECOMMENDATIONS AND DISCUSSION: In this 65-year-old woman who presented with multiple complex medical issues, we will monitor the patient closely, continue the current medications, management and symptomatic treatment. Recommend rule out myocardial infarction. Resume the home medications. Cardiology consultation. Possible stress test. Prognosis guarded because of multiple complex medical issues. Further recommendations to follow. A copy of dictation is being forwarded to Dr. Boogie who is the primary physician. MMODL / IJN: [id number] / MTDD
[2020-12-22 18:06] LABS: Glucose,Whole Blood 186 mg/dL (75-99)
[2020-12-22] MEDS: metFORMIN 500 MG TAB PO SCH (18:09)
[2020-12-22 21:00] LABS: Glucose,Whole Blood 96 mg/dL (75-99)
[2020-12-22] MEDS ORDERED: traZODone HCL 100 MG TAB PO SCH (21:00)
[2020-12-22] MEDS ORDERED: ATORVASTATIN 20 MG TAB PO SCH (21:00)
[2020-12-22] MEDS: LITHIUM CARBONATE 300 MG CAP PO SCH (21:20)
[2020-12-22] MEDS: OXYBUTYNIN CHLORIDE 5 MG TAB PO SCH (21:21)
[2020-12-22] MEDS: ZIPRASIDONE 80 MG CAP PO SCH (21:21)
[2020-12-22] MEDS: MORPHINE SULFATE 4 MG/ML SYRINGE IV PRN (21:24)
[2020-12-23] MEDS: MORPHINE SULFATE 4 MG/ML SYRINGE IV PRN (06:24)
[2020-12-23] MEDS ORDERED: LEVOTHYROXINE 50 MCG TAB PO SCH (06:30)
[2020-12-23 07:18] LABS: Glucose,Whole Blood 141 mg/dL (75-99)
[2020-12-23] MEDS ORDERED: PANTOPRAZOLE 40 MG TABLET PO SCH (07:30)
[2020-12-23] MEDS ORDERED: lamoTRIgine 100 MG TAB PO SCH (09:00)
[2020-12-23] MEDS ORDERED: ERGOCALCIFEROL 1,250 MCG (50,000 IU) CAPSULE PO SCH (09:00)
[2020-12-23] MEDS ORDERED: FERROUS SULFATE 325 MG TAB PO SCH (09:00)
[2020-12-23 09:31] LABS: Basophils # (A) 0.08 X 10*3/uL (0.00-0.10); Basophils % (A) 0.9 %; Eosinophils # (A) 0.36 X 10*3/uL (0.04-0.35); Eosinophils % (A) 4.1 %; HCT 44.4 % (37.2-46.3); HGB 13.7 g/dL (12.0-15.0); Lymphocytes # (A) 2.72 X 10*3/uL (0.90-5.00); MCH 24.6 pg (27.0-32.0); MCHC 30.9 g/dL (32.0-37.0); MCV 79.6 fL (80.0-97.0); Mean Platelet Volume 9.8 fL (9.5-12.2); Monocytes # (A) 0.52 X 10*3/uL (0.20-1.00); Monocytes % (A) 5.9 %; Neutrophils # (A) 5.06 X 10*3/uL (1.80-7.70); Neutrophils % (A) 57.8 %; Platelet Count 246 X 10*3/uL (140-440); RBC 5.58 X 10*6/uL (4.10-5.20); RDW 17.3 % (11.5-14.5); WBC 8.77 X 10*3/uL (4.50-10.00)
[2020-12-23 09:40] LABS: African American GFR (CKD) 50.6 (60.0-200.0); Anion Gap 3.4 mmol/L (4.00-12.00); BUN/Creat Ratio 18.46 Ratio (12.00-20.00); Calcium 9.2 mg/dL (8.7-10.3); Carbon Dioxide 31.6 mmol/L (21.6-31.8); Non-African American GFR(CKD) 43.6 (60.0-200.0); Potassium 4.9 mmol/L (3.5-5.5)
[2020-12-23] MEDS: OXYBUTYNIN CHLORIDE 5 MG TAB PO SCH (10:02)
[2020-12-23] MEDS: metFORMIN 500 MG TAB PO SCH (10:02)
[2020-12-23] MEDS: LITHIUM CARBONATE 300 MG CAP PO SCH (10:03)
[2020-12-23] MEDS: ZIPRASIDONE 80 MG CAP PO SCH (10:09)
--- NOTE | 2020-12-23 11:35 | P.CRDCN ---
History of Present Illness History of present illness: HISTORY OF PRESENTING ILLNESS This is a pleasant 65-year-old female past medical history significant for hypertension, dyslipidemia, diabetes mellitus and schizoaffective disorder. She follows in the office with Dr. Padilla. We have been asked to see in consultation for chest pain. She states for the previous few months on a daily basis she experiences a tight squeezing sensation in the middle of her chest associated sometimes with sharp stabbing pains. She states she takes medications for this but she is unsure what the name of the medication as. She states she has these episodes prior to taking her medications and once she takes her medications for the symptoms subsided within about 2 hours. She is also undergoing a lot of personal traumatic stress at home. States this may be exacerbating her symptoms. She did follow up in the office with Dr. Padilla regarding this discomfort and underwent a stress test that was normal with no evidence of reversibility. She also had an echocardiogram in the office which revealed normal EF 55-60%. EKG on admission reveals sinus mechanism with ST or T wave abnormalities noted. Chest x-ray is negative for an acute car diopulmonary process. Laboratory data reviewed, WBC 8.7, hemoglobin 13.7, platelets 246, sodium 140, potassium 4.9, creatinine 1.3, cardiac enzymes negative 3. Current daily cardiac medications include atorvastatin 20 mg daily and atenolol 12.5 mg daily. REVIEW OF SYSTEMS At the time of my exam: CONSTITUTIONAL: Denies fever or chills. CARDIOVASCULAR: Denies chest pain, shortness of breath, orthopnea, PND or palpitations. RESPIRATORY: Denies cough. GASTROINTESTINAL: Denies abdominal pain, diarrhea, constipation, nausea or vomiting. MUSCULOSKELETAL: Denies myalgias. NEUROLOGIC: Denies numbness, tingling, headacbe or weakness. ENDOCRINE: Denies fatigue, weight change, polydipsia or polyurina. GENITOURINARY: Denies burning, hematuria or urgency with micturation. HEMATOLOGIC: Denies history of anemia or bleeding. PHYSICAL EXAMINATION Blood pressure 120/76 heart rate 66 afebrile and maintaining oxygen saturation on room air. CONSTITUTIONAL: No apparent distress. HEENT: Head is normocephalic. Pupils are equal, round. Sclerae anicteric. Mucous membranes of the mouth are moist. No JVD. No carotid bruit. CHEST EXAMINATION: Lungs are clear to auscultation. No chest wall tenderness is noted on palpation or with deep breathing. HEART EXAMINATION: Regular rate and rhythm. S1, S2 heard. No murmurs, gallops or rub. ABDOMEN: Soft, nontender. Positive bowel sounds. EXTREMITIES: 2+ peripheral pulses, no lower extremity edema and no calf tenderness. NEUROLOGIC EXAMINATION: Patient is awake, alert and oriented x3. ASSESSMENT Chest pain, atypical Hypertension Dyslipidemia Diabetes mellitus Schizoaffective disorder PLAN An acute coronary event has been ruled out. Recent stress test and echocardiogram reviewed. She has no evidence of reversible coronary artery disease. Pain is atypical for angina. Stable for discharge from a cardiac perspective. Thank you kindly for this consultation. Nurse Practitioner note has been reviewed, I agree with a documented findings and plan of care. Patient was seen and examined. Past Medical History Past Medical History: Chest Pain / Angina, Diabetes Mellitus, Eye Disorder, GERD/Reflux, Hyperlipidemia, Hypertension, Memory Impairment, Myocardial Infarction ([place]), Osteoarthritis (OA), Seizure Disorder, Sleep Apnea/CPAP/BIPAP, Thyroid Disorder Additional Past Medical History / Comment(s): SINUSITIS. PAST SEIZURE, PT STATED WAS DUE TO MEDICATIONS SHE WAS ON 20 yrs ago. VARICOSE VEINS, NEUROPATHY, has CPAP machine but does not use it. Episodes of lightheadedness and dizziness when rising, X1 yr. Short term memory impairment, cataracts. Last Myocardial Infarction Date:: 2016 History of Any Multi-Drug Resistant Organisms: None Reported Past Surgical History: Section Additional Past Surgical History / Comment(s): Nasal Surgery. [facility] has never had a Cardiac cath. [facility] saw Dr Padilla 10/2020 had a stress test and he said it was okay Past Anesthesia/Blood Transfusion Reactions: Motion Sickness Past Psychological History: ADD/ADHD, Anxiety, Bipolar, Depression, Schizoaffective Disorder Smoking Status: Never smoker Past Alcohol Use History: None Reported Past Drug Use History: None Reported - Past Family History Father Family Medical History: CVA/TIA Additional Family Medical History / Comment(s): SMOKED AND USED ETOH- AGE 78- FROM STROKE Mother Additional Family Medical History / Comment(s): CRONIC BRONCHITIS.REMOVED PART OF ONE LUNG d/t the bronchitis infection Medications and Allergies Home Medications Medication Instructions Recorded Confirmed Type Levothyroxine Sodium [Synthroid] 50 mcg PO QAM 06/01/12/22/20 History Meloxicam [Mobic] 7.5 mg PO BID PRN 01/10/17 12/22/20 History metFORMIN HCL [Glucophage] 500 mg PO BID 12/15/17 12/22/20 History Atorvastatin [Lipitor] 20 mg PO HS 03/07/18 12/22/20 History rOPINIRole HCL [Requip] 0.5 mg PO HS 06/09/18 12/22/20 History lamoTRIgine [LaMICtal] 200 mg PO QAM 04/06/19 12/22/20 History Albuterol Sulfate [Ventolin HFA] 1 - 2 puff INHALATION RT-Q6H PRN 12/22/20 12/22/20 History Cyclobenzaprine [Flexeril] 5 mg PO BID PRN 12/22/20 12/22/20 History Ergocalciferol [Vitamin D2 (1250 1,250 mcg PO Q7D 12/22/20 12/22/20 History Mcg = 26071 Iu)] Ferrous Sulfate [Feosol] 325 mg PO DAILY 12/22/20 12/22/20 History [place] Carbonate 300 mg PO BID 12/22/20 12/22/20 History Oxybutynin Chloride [Ditropan] 5 mg PO BID 12/22/20 12/22/20 History Pantoprazole Sodium [Protonix] 40 mg PO DAILY 12/22/20 12/22/20 History Triamcinolone 0.1% Cream [Kenalog 1 applicatio TOPICAL BID PRN 12/22/20 12/22/20 History 0.1% Cream] Ziprasidone [Geodon] 80 mg PO BID 12/22/20 12/22/20 History atenoloL [Atenolol] 12.5 mg PO DAILY 12/22/20 12/22/20 History clonazePAM [KlonoPIN] 0.5 mg PO TID PRN 12/22/20 12/22/20 History fluvoxaMINE MALEATE 50 mg PO QID 12/22/20 12/22/20 History traZODone HCL [Desyrel] 200 mg PO HS 12/22/20 12/22/20 History Allergies Allergy/AdvReac Type Severity Reaction Status Date / Time amoxicillin Allergy Rash/Hives Verified 12/22/20 13:47 codeine Allergy Unknown Verified 12/22/20 13:47 Sulfa (Sulfonamide Allergy Unknown Verified 12/22/20 13:47 Antibiotics) sulfamethoxazole Allergy Unknown Verified 12/22/20 13:47 [From Bactrim] thioridazine [From Mellaril] Allergy Unknown Verified 12/22/20 13:47 trimethoprim [From Bactrim] Allergy Unknown Verified 12/22/20 13:47 Physical Exam Vitals: Vital Signs Temp Pulse Pulse Pulse Resp BP BP 12/23/20 02:15 97.4 F L 76 74 18 169/70 12/22/20 21:39 76 67 18 12/22/20 21:35 97.6 F 67 18 127/80 12/22/20 17:47 97.8 F 76 16 131/77 12/22/20 17:21 98.1 F 62 16 139/80 12/22/20 16:33 71 16 152/96 12/22/20 16:19 98.4 F 57 L 16 153/87 12/22/20 15:29 60 16 145/87 12/22/20 13:45 69 16 117/73 12/22/20 12:46 68 16 116/77 12/22/20 12:42 68 16 12/22/20 12:00 98.4 F 77 17 138/86 Pulse Ox 12/23/20 02:15 95 12/22/20 21:39 12/22/20 21:35 98 12/22/20 17:47 94 L 12/22/20 17:21 98 12/22/20 16:33 98 12/22/20 16:19 99 12/22/20 15:29 98 12/22/20 13:45 98 12/22/20 12:46 98 12/22/20 12:42 12/22/20 12:00 98 Intake and Output 12/22/20 12/23/20 12/23/20 22:59 06:59 14:59 Other: Voiding Method Toilet Toilet # Voids 1 1 Weight 99.79 kg Results 12/23/20 04:52 12/23/20 04:52 Cardiac Enzymes 12/22/20 12/22/20 12/22/20 Range/Units 12:39 12:39 15:30 AST 21 (14-36) U/L Troponin I <0.012 <0.012 (0.000-0.034) ng/mL 12/22/20 Range/Units 18:03 AST (14-36) U/L Troponin I <0.012 (0.000-0.034) ng/mL Coagulation 12/22/20 Range/Units 12:39 PT 9.9 (9.0-12.0) sec APTT 18.9 L (22.0-30.0) sec CBC 12/22/20 Range/Units 12:39 WBC 8.3 (3.8-10.6) k/uL RBC 5.49 H (3.80-5.40) m/uL Hgb 13.5 (11.4-16.0) gm/dL Hct 41.4 (34.0-46.0) % Plt Count 239 (150-450) k/uL Comprehensive Metabolic Panel 12/22/20 Range/Units 12:39 Sodium 139 (137-145) mmol/L Potassium 4.6 (3.5-5.1) mmol/L Chloride 103 (98-107) mmol/L Carbon Dioxide 26 (22-30) mmol/L BUN 20 H (7-17) mg/dL Creatinine 1.07 H (0.52-1.04) mg/dL Glucose 102 H (74-99) mg/dL Calcium 9.6 (8.4-10.2) mg/dL AST 21 (14-36) U/L ALT 34 (4-34) U/L Alkaline Phosphatase 82 (38-126) U/L Total Protein 6.7 (6.3-8.2) g/dL Albumin 4.2 (3.5-5.0) g/dL Current Medications Generic Name Dose Route Start Last Admin Trade Name Freq PRN Reason Stop Dose Admin Acetaminophen 650 mg 12/22/20 14:26 12/22/20 16:31 Acetaminophen Tab 325 Mg Tab PO 650 mg Q6HR PRN Administration Mild Pain or Fever > 100.5 Albuterol Sulfate 2.5 mg 12/22/20 15:14 Albuterol Nebulized 2.5 Mg/3 Ml INHALATION RT-Q6H PRN Shortness Of Breath Alprazolam 0.25 mg 12/22/20 15:16 Alprazolam 0.25 Mg Tab PO TID PRN Anxiety Atenolol 12.5 mg 12/23/20 09:00 Atenolol 12.5 Mg Tab PO DAILY [facility] Atorvastatin Calcium 20 mg 12/22/20 21:00 12/22/20 21:19 Atorvastatin 20 Mg Tab PO 20 mg HS [facility] Administration Clonazepam 0.5 mg 12/22/20 15:14 12/22/20 16:31 Clonazepam 0.5 Mg Tab PO 0.5 mg TID PRN Administration Anxiety Cyclobenzaprine HCl 5 mg 12/22/20 15:14 Cyclobenzaprine 5 Mg Tab PO BID PRN Muscle Spasm Ergocalciferol 1,250 mcg 12/23/20 09:00 Ergocalciferol 1,250 Mcg (50,000 Iu) Capsule PO Q7D [facility] Ferrous Sulfate 325 mg 12/23/20 09:00 Ferrous Sulfate 325 Mg Tab PO DAILY [facility] Fluvoxamine Maleate 50 mg 12/22/20 18:00 12/22/20 21:21 Fluvoxamine 50 Mg Tab PO 50 mg QID [facility] Administration Lamotrigine 200 mg 12/23/20 09:00 Lamotrigine 100 Mg Tab PO QAM [facility] Levothyroxine Sodium 50 mcg 12/23/20 06:30 12/23/20 06:24 Levothyroxine 50 Mcg Tab PO 50 mcg DAILY@0630 [facility] Administration [place] Carbonate 300 mg 12/22/20 21:00 12/22/20 21:20 [place] Carbonate 300 Mg Cap PO 300 mg BID [facility] Administration Meloxicam 7.5 mg 12/22/20 15:14 Meloxicam 7.5 Mg Tab PO BID PRN Pain Metformin HCl 500 mg 12/22/20 17:30 12/22/20 18:09 Metformin 500 Mg Tab PO 500 mg BID-W/MEALS [facility] Administration Morphine Sulfate 4 mg 12/22/20 14:26 12/23/20 06:24 Morphine Sulfate 4 Mg/Ml Syringe IV 4 mg Q4HR PRN Administration Severe Pain Naloxone HCl 0.2 mg 12/22/20 14:26 Naloxone 0.4 Mg/Ml 1 Ml Vial IV Q2M PRN Opioid Reversal Ondansetron HCl 4 mg 12/22/20 14:26 Ondansetron 4 Mg/2 Ml Vial IVP Q8HR PRN Nausea And Vomiting Oxybutynin Chloride 5 mg 12/22/20 21:00 12/22/20 21:21 Oxybutynin Chloride 5 Mg Tab PO 5 mg BID [facility] Administration Pantoprazole Sodium 40 mg 12/23/20 07:30 Pantoprazole 40 Mg Tablet PO [id number] [facility] Ropinirole HCl 0.5 mg 12/22/20 21:00 12/22/20 21:21 Ropinirole Hcl 1 Mg Tab PO 0.5 mg HS [facility] Administration Trazodone HCl 200 mg 12/22/20 21:00 12/22/20 23:56 Trazodone Hcl 100 Mg Tab PO Not Given HS [facility] Triamcinolone Acetonide 1 applic 12/22/20 15:14 Triamcinolone 0.1% Cream 80 Gm Tube TOPICAL BID PRN Rash Ziprasidone 80 mg 12/22/20 21:00 12/22/20 21:21 Ziprasidone 80 Mg Cap PO 80 mg BID [facility] Administration Intake and Output 12/22/20 12/23/20 12/23/20 22:59 06:59 14:59 Other: Voiding Method Toilet Toilet # Voids 1 1 Weight 99.79 kg 12/22/20 12:39 12/22/20 12:39
[2020-12-23 11:46] LABS: Glucose,Whole Blood 107 mg/dL (75-99)
[2020-12-23] MEDS ORDERED: PANTOPRAZOLE 40 MG/10 ML VIAL IVP SCH (12:00)
[2020-12-23] MEDS ORDERED: IBUPROFEN 400 MG TAB PO STA (13:11)
[2020-12-23 15:07] VITALS: BP 112/54; PULSE 90; RESP 17; TEMP 97.5
--- NOTE | 2020-12-24 16:10 | P.DS ---
Providers Date of admission: 12/22/20 14:26 Expected date of discharge: 12/23/20 Attending physician: Tess Johnson Consults: 12/22/20 14:27 Consult Physician Routine Consulting Provider: Mustapha Thomas Consult Reason/Comments: Chest pain rule out Do you want consulting provider notified?: Yes Primary care physician: Keagan Daugherty [facility] Course: Final diagnosis Chest pain, possible unstable angina Elevated creatinine with possible mild acute renal failure, acute prerenal acute tubular necrosis and dehydration History of diabetes mellitus type 2 history of previous chest pain and negative dobutamine stress echo Gastroesophageal reflux disease Hypertension Hyperlipidemia memory impairment history of myocardial infarction History of degenerative joint disease history of seizure disorder Sleep apnea hypothyroidism Sinusitis history of section history of attention deficit disorder, attention deficit hyperactivity disorder Anxiety, bipolar depression, schizoaffective disorder Obesity with a body mass index of 34.5 Full code Discharge disposition Patient is being discharged in a stable condition with guarded prognosis to home. Patient will follow-up with Dr. Boogie in the outpatient setting upon discharge. Patient is to follow-up with cardiology Dr. Padilla outpatient in 2 weeks. Total time taken is greater than 35 minutes. Hospital course This is a 65-year-old female who was recently admitted with chest pain and was being closely monitored. Patient apparently had gone to an urgent care for the chest pain with headache and was given aspirin and transferred to [facility] for further evaluation. Patient was evaluated by cardiology and recently underwent cardiac workup was negative and will be following up with cardiology in the outpatient setting with Dr. Padilla. Currently no reports of chest pain, shortness of breath, or palpitations. Patient is afebrile. No reports of nausea or vomiting and patient is tolerating diet. Patient will be discharged home today. On exam vital signs are stable. Cardio S1, S2 are muffled. Respiratory system shows diminished breath sounds at the bases with no wheezing or rhonchi noted. Abdomen is soft and nontender. Nervous system shows no focal deficits. Please refer to medication reconciliation sheet for a list of medications. Patient Condition at Discharge: Stable Plan - Discharge Summary New Discharge Prescriptions: New Acetaminophen Tab [Tylenol] 650 mg PO Q6HR PRN tab PRN Reason: Mild Pain Or Fever > 100.5 Continue Levothyroxine Sodium [Synthroid] 50 mcg PO QAM Meloxicam [Mobic] 7.5 mg PO BID PRN PRN Reason: Pain metFORMIN HCL [Glucophage] 500 mg PO BID Atorvastatin [Lipitor] 20 mg PO HS rOPINIRole HCL [Requip] 0.5 mg PO HS lamoTRIgine [LaMICtal] 200 mg PO QAM Ziprasidone [Geodon] 80 mg PO BID traZODone HCL [Desyrel] 200 mg PO HS Triamcinolone 0.1% Cream [Kenalog 0.1% Cream] 1 applicatio TOPICAL BID PRN PRN Reason: Rash Albuterol Sulfate [Ventolin HFA] 1 - 2 puff INHALATION RT-Q6H PRN PRN Reason: Shortness Of Breath Pantoprazole Sodium [Protonix] 40 mg PO DAILY Oxybutynin Chloride [Ditropan] 5 mg PO BID fluvoxaMINE MALEATE 50 mg PO QID [place] Carbonate 300 mg PO BID Ferrous Sulfate [Iron (65 MG Elemental)] 325 mg PO DAILY Ergocalciferol [Vitamin D2 (1250 Mcg = 56567 Iu)] 1,250 mcg PO Q7D Cyclobenzaprine [Flexeril] 5 mg PO BID PRN PRN Reason: Muscle Spasm clonazePAM [KlonoPIN] 0.5 mg PO TID PRN PRN Reason: Anxiety atenoloL [Atenolol] 12.5 mg PO DAILY Discharge Medication List Levothyroxine Sodium [Synthroid] 50 mcg PO QAM 06/01/15 [History] Meloxicam [Mobic] 7.5 mg PO BID PRN 01/10/17 [History] metFORMIN HCL [Glucophage] 500 mg PO BID 12/15/17 [History] Atorvastatin [Lipitor] 20 mg PO HS 03/07/18 [History] rOPINIRole HCL [Requip] 0.5 mg PO HS 06/09/18 [History] lamoTRIgine [LaMICtal] 200 mg PO QAM 04/06/19 [History] Albuterol Sulfate [Ventolin HFA] 1 - 2 puff INHALATION RT-Q6H PRN 12/22/20 [History] Cyclobenzaprine [Flexeril] 5 mg PO BID PRN 12/22/20 [History] Ergocalciferol [Vitamin D2 (1250 Mcg = 10447 Iu)] 1,250 mcg PO Q7D 12/22/20 [History] Ferrous Sulfate [Iron (65 MG Elemental)] 325 mg PO DAILY 12/22/20 [History] [place] Carbonate 300 mg PO BID 12/22/20 [History] Oxybutynin Chloride [Ditropan] 5 mg PO BID 12/22/20 [History] Pantoprazole Sodium [Protonix] 40 mg PO DAILY 12/22/20 [History] Triamcinolone 0.1% Cream [Kenalog 0.1% Cream] 1 applicatio TOPICAL BID PRN 12/22/20 [History] Ziprasidone [Geodon] 80 mg PO BID 12/22/20 [History] atenoloL [Atenolol] 12.5 mg PO DAILY 12/22/20 [History] clonazePAM [KlonoPIN] 0.5 mg PO TID PRN 12/22/20 [History] fluvoxaMINE MALEATE 50 mg PO QID 12/22/20 [History] traZODone HCL [Desyrel] 200 mg PO HS 12/22/20 [History] Acetaminophen Tab [Tylenol] 650 mg PO Q6HR PRN tab 12/23/20 [Rx] Follow up Appointment(s)/Referral(s): Analia Boogie MD [Primary Care Provider] - 1-2 days Doug Padilla DO [STAFF PHYSICIAN] - 2 Weeks Patient Instructions/Handouts: Chest Pain (DC) Activity/Diet/Wound Care/Special Instructions: Activity Limited until follow-up Follow-up with primary care provider upon discharge Continue heart healthy diabetic diet Follow-up cardiology outpatient Discharge Disposition: HOME SELF-CARE
== END 2020-12-23 17:23 | disposition home or self-care (01) ==
LOC: EC 11:59 → 6NMEDSUR 14:26
PROVIDERS: ADMIT Hospitalist; ATTEND Hospitalist
DX: R07.9 Chest pain, unspecified (principal); R94.4 Abnormal results of kidney function studies; E11.9 Type 2 diabetes mellitus without complications; K21.9 Gastro-esophageal reflux disease without esophagitis; I10 Essential (primary) hypertension; E78.5 Hyperlipidemia, unspecified; R41.3 Other amnesia; I25.2 Old myocardial infarction; M19.90 Unspecified osteoarthritis, unspecified site; G40.909 Epilepsy, unspecified, not intractable, without status epilepticus; G47.30 Sleep apnea, unspecified; E03.9 Hypothyroidism, unspecified; Z98.891 History of uterine scar from previous surgery; F90.9 Attention-deficit hyperactivity disorder, unspecified type; F41.9 Anxiety disorder, unspecified; F31.9 Bipolar disorder, unspecified; F25.9 Schizoaffective disorder, unspecified; E66.9 Obesity, unspecified; Z68.34 Body mass index [BMI] 34.0-34.9, adult; Z82.3 Family history of stroke; Z83.6 Family history of other diseases of the respiratory system; S09.90XA Unspecified injury of head, initial encounter; Z79.84 Long term (current) use of oral hypoglycemic drugs; Z79.1 Long term (current) use of non-steroidal anti-inflammatories (NSAID); Z79.890 Hormone replacement therapy; Z79.899 Other long term (current) drug therapy
CPT/HCPCS: 96376 ×2; 96375; 96374; 99285; 36415; 94760; 93005; 83880; 80053; 80048; 83690; 83735; 84484; 85025 ×2; 85610; 85730; 87635; 71046; 70450; G0378 ×2; J2270 ×3; C9113

== ENCOUNTER 2020-12-26 16:05 | Emergency (ER) | payer MEDICARE, OTHER ==
[2020-12-26 16:15] VITALS: PULSE 76; RESP 18; TEMP 99
[2020-12-26] MEDS ORDERED: HYDROmorphone 1 MG/ML 1 ML SYRINGE IVP STA (16:26)
[2020-12-26] MEDS ORDERED: SODIUM CHLORIDE 0.9% 1,000 ML IV ONE (16:26)
--- NOTE | 2020-12-26 16:32 | ED ---
Fall HPI - General Chief Complaint: Fall Stated Complaint: Fall, leg injury Time Seen by Provider: 12/26/20 16:17 Source: patient, RN notes reviewed Mode of arrival: ambulatory - History of Present Illness Initial Comments: 65-year-old female coming to emergency department complaining of right knee and left foot/big toe pain she noted that she fell down 2 steps while at home but caught herself by putting her hands out. She noted she fell on her hands and knees. She reported that she felt her leg bones pop out through the muscle. She did state that she took meloxicam before coming to the ER with his help with the pain will bit. She stated it was still a 10 out of 10 that is constant without relief. She denied any dizziness lightheadedness, syncope fever fatigue chills chest pain shortness of breath cough headache nausea vomiting diarrhea constipation. Patient also denied hitting her head or any loss of consciousness and she is not taking any blood thinners. - Related Data Home Medications Medication Instructions Recorded Confirmed Levothyroxine Sodium [Synthroid] 50 mcg PO QAM 06/01/15 12/22/20 Meloxicam [Mobic] 7.5 mg PO BID PRN 01/10/17 12/22/20 metFORMIN HCL [Glucophage] 500 mg PO BID 12/15/17 12/22/20 Atorvastatin [Lipitor] 20 mg PO HS 03/07/18 12/22/20 rOPINIRole HCL [Requip] 0.5 mg PO HS 06/09/18 12/22/20 lamoTRIgine [LaMICtal] 200 mg PO QAM 04/06/19 12/22/20 Albuterol Sulfate [Ventolin HFA] 1 - 2 puff INHALATION RT-Q6H PRN 12/22/20 12/22/20 Cyclobenzaprine [Flexeril] 5 mg PO BID PRN 12/22/20 12/22/20 Ergocalciferol [Vitamin D2 (1250 1,250 mcg PO Q7D 12/22/20 12/22/20 Mcg = 32331 Iu)] Ferrous Sulfate [Iron (65 MG 325 mg PO DAILY 12/22/20 12/22/20 Elemental)] [place] Carbonate 300 mg PO BID 12/22/20 12/22/20 Oxybutynin Chloride [Ditropan] 5 mg PO BID 12/22/20 12/22/20 Pantoprazole Sodium [Protonix] 40 mg PO DAILY 12/22/20 12/22/20 Triamcinolone 0.1% Cream [Kenalog 1 applicatio TOPICAL BID PRN 12/22/20 12/22/20 0.1% Cream] Ziprasidone [Geodon] 80 mg PO BID 12/22/20 12/22/20 atenoloL [Atenolol] 12.5 mg PO DAILY 12/22/20 12/22/20 clonazePAM [KlonoPIN] 0.5 mg PO TID PRN 12/22/20 12/22/20 fluvoxaMINE MALEATE 50 mg PO QID 12/22/20 12/22/20 traZODone HCL [Desyrel] 200 mg PO HS 12/22/20 12/22/20 Previous Rx's Medication Instructions Recorded Acetaminophen Tab [Tylenol] 650 mg PO Q6HR PRN tab 12/23/20 Allergies Allergy/AdvReac Type Severity Reaction Status Date / Time amoxicillin Allergy Rash/Hives Verified 12/26/20 16:15 codeine Allergy Unknown Verified 12/26/20 16:15 Sulfa (Sulfonamide Allergy Unknown Verified 12/26/20 16:15 Antibiotics) sulfamethoxazole Allergy Unknown Verified 12/26/20 16:15 [From Bactrim] thioridazine [From Mellaril] Allergy Unknown Verified 12/26/20 16:15 trimethoprim [From Bactrim] Allergy Unknown Verified 12/26/20 16:15 Review of Systems ROS Statement: Those systems with pertinent positive or pertinent negative responses have been documented in the HPI. ROS Other: All systems not noted in ROS Statement are negative. Past Medical History Past Medical History: Chest Pain / Angina, Diabetes Mellitus, Eye Disorder, GERD/Reflux, Hyperlipidemia, Hypertension, Memory Impairment, Myocardial Infarction ([place]), Osteoarthritis (OA), Seizure Disorder, Sleep Apnea/CPAP/BIPAP, Thyroid Disorder Additional Past Medical History / Comment(s): SINUSITIS. PAST SEIZURE, PT STATED WAS DUE TO MEDICATIONS SHE WAS ON 20 yrs ago. VARICOSE VEINS, NEUROPATHY, has CPAP machine but does not use it. Episodes of lightheadedness and dizziness when rising, X1 yr. Short term memory impairment, cataracts. Last Myocardial Infarction Date:: 2016 History of Any Multi-Drug Resistant Organisms: None Reported Past Surgical History: Section Additional Past Surgical History / Comment(s): Nasal Surgery. states has never had a Cardiac cath. [facility] saw Dr Padilla 10/2020 had a stress test and he said it was okay Past Anesthesia/Blood Transfusion Reactions: Motion Sickness Past Psychological History: ADD/ADHD, Anxiety, Bipolar, Depression, Schizoaffective Disorder Smoking Status: Never smoker Past Alcohol Use History: None Reported Past Drug Use History: None Reported - Past Family History Father Family Medical History: CVA/TIA Additional Family Medical History / Comment(s): SMOKED AND USED ETOH- AGE 78- FROM STROKE Mother Additional Family Medical History / Comment(s): CRONIC BRONCHITIS.REMOVED PART OF ONE LUNG d/t the bronchitis infection General Exam General appearance: alert, in no apparent distress Head exam: Present: atraumatic, normocephalic, normal inspection Eye exam: Present: normal appearance, PERRL, EOMI. Absent: scleral icterus, conjunctival injection, periorbital swelling ENT exam: Present: normal exam, mucous membranes moist Neck exam: Present: normal inspection. Absent: tenderness, meningismus, lymphadenopathy Respiratory exam: Present: normal lung sounds bilaterally. Absent: respiratory distress, wheezes, rales, rhonchi, stridor Cardiovascular Exam: Present: regular rate, normal rhythm, normal heart sounds, other (2+ distal pulses in bilateral lower extremities.). Absent: systolic murmur, diastolic murmur, rubs, gallop, clicks GI/Abdominal exam: Present: soft, normal bowel sounds. Absent: distended, tenderness, guarding, rebound, rigid Extremities exam: Present: normal inspection, full ROM, normal capillary refill, other (Lachmans test negative.). Absent: tenderness, pedal edema, joint swelling, calf tenderness Neurological exam: Present: alert, oriented X3, CN II-XII intact Psychiatric exam: Present: normal affect, normal mood Skin exam: Present: warm, dry, intact, normal color. Absent: rash Course Vital Signs 12/26/20 16:08 Temperature 99.0 F Pulse Rate 76 Respiratory 18 Rate Blood Pressure 152/83 O2 Sat by Pulse 96 Oximetry Medical Decision Making - Medical Decision Making 65-year-old female complaining of right knee and left foot pain after falling down 2 stairs. Pain medication, x-rays of right knee and left foot ordered 1 L of normal saline ordered. This patient states she was feeling dry. X-rays: Within normal limits no acute processes such as fractures or dislocations. Case discussed with Dr. Paez, was decided the patient to discharge home. - Radiology Data Radiology results: report reviewed, image reviewed Right knee: No acute process bilateral feet: No acute process Disposition Clinical Impression: Fall, Arthritis Disposition: HOME SELF-CARE Condition: Stable Instructions (If sedation given, give patient instructions): Fall Prevention for Older Adults (ED) Additional Instructions: Please return to the Emergency Department if symptoms worsen or any other concerns. Continue to take arthritis medication as needed for pain. Follow-up with primary care 1-2 days. Increase fluids. Take extra precautions when going up and down stairs to prevent further falls. Is patient prescribed a controlled substance at d/c from ED?: No Referrals: Analia Boogie MD [Primary Care Provider] - 1-2 days Time of Disposition: 18:00
--- NOTE | 2020-12-26 17:42 | XR ---
PROCEDURE: XR foot complete bilateral - comparison: 11/16/2020 DATE AND TIME: 12/26/2020 5:12 PM CLINICAL INDICATION: PHH; pain TECHNIQUE: Department protocol COMPARISON: None FINDINGS: There is no fracture or malalignment. Multifocal osteoarthrosis changes are noted. The soft tissues are unremarkable. IMPRESSION: NO ACUTE PROCESS.
--- NOTE | 2020-12-26 17:46 | XR ---
PROCEDURE: XR knee complete RT - 3V DATE AND TIME: 12/26/2020 4:55 PM CLINICAL INDICATION: PHH; Knee pain TECHNIQUE: Department protocol COMPARISON: None FINDINGS: There is no fracture or malalignment. Medial compartment osteoarthrosis changes noted. The soft tissues are unremarkable. IMPRESSION: NO ACUTE PROCESS.
[2020-12-26 18:29] VITALS: BP 148/81
== END 2020-12-26 18:20 | disposition home or self-care (01) ==
LOC: EC 16:05
DX: M19.90 Unspecified osteoarthritis, unspecified site (principal); I10 Essential (primary) hypertension; I20.9 Angina pectoris, unspecified; E11.40 Type 2 diabetes mellitus with diabetic neuropathy, unspecified; E78.5 Hyperlipidemia, unspecified; E11.36 Type 2 diabetes mellitus with diabetic cataract; E07.9 Disorder of thyroid, unspecified; K21.9 Gastro-esophageal reflux disease without esophagitis; G47.30 Sleep apnea, unspecified; G40.909 Epilepsy, unspecified, not intractable, without status epilepticus; I25.2 Old myocardial infarction; F41.9 Anxiety disorder, unspecified; F32.9 Major depressive disorder, single episode, unspecified; F25.9 Schizoaffective disorder, unspecified; Z79.899 Other long term (current) drug therapy; Z79.890 Hormone replacement therapy; Z79.84 Long term (current) use of oral hypoglycemic drugs; Z88.1 Allergy status to other antibiotic agents; Z88.0 Allergy status to penicillin; Z88.2 Allergy status to sulfonamides; Z88.8 Allergy status to other drugs, medicaments and biological substances; Z88.5 Allergy status to narcotic agent; Z99.89 Dependence on other enabling machines and devices
CPT/HCPCS: 73630; 73562; 99283; 96374; 96361; J1170

== ENCOUNTER 2021-01-23 14:37 | Emergency (ER) | payer OTHER, MEDICARE ==
[2021-01-23 15:20] VITALS: RESP 18
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
[2021-01-23] MEDS ORDERED: KETOROLAC 15 MG/ML 1 ML VIAL IM STA (17:15)
[2021-01-23 17:53] VITALS: BP 131/73; PULSE 70; TEMP 98.1
== END 2021-01-23 17:53 | disposition home or self-care (01) ==
LOC: EC 14:37
DX: M54.2 Cervicalgia (principal); R07.89 Other chest pain; F90.9 Attention-deficit hyperactivity disorder, unspecified type; F41.9 Anxiety disorder, unspecified; F31.9 Bipolar disorder, unspecified; F25.9 Schizoaffective disorder, unspecified; E11.40 Type 2 diabetes mellitus with diabetic neuropathy, unspecified; K21.9 Gastro-esophageal reflux disease without esophagitis; I20.9 Angina pectoris, unspecified; E78.5 Hyperlipidemia, unspecified; I10 Essential (primary) hypertension; I25.2 Old myocardial infarction; M19.90 Unspecified osteoarthritis, unspecified site; G40.909 Epilepsy, unspecified, not intractable, without status epilepticus; E07.9 Disorder of thyroid, unspecified; G47.33 Obstructive sleep apnea (adult) (pediatric); Z99.89 Dependence on other enabling machines and devices; Z79.84 Long term (current) use of oral hypoglycemic drugs; Z79.890 Hormone replacement therapy; Z79.899 Other long term (current) drug therapy; Z88.0 Allergy status to penicillin; Z88.1 Allergy status to other antibiotic agents; Z88.2 Allergy status to sulfonamides; Z88.5 Allergy status to narcotic agent; Z88.8 Allergy status to other drugs, medicaments and biological substances; Z98.42 Cataract extraction status, left eye; Z98.41 Cataract extraction status, right eye; V43.52XA Car driver injured in collision with other type car in traffic accident, initial encounter; Y92.410 Unspecified street and highway as the place of occurrence of the external cause
CPT/HCPCS: 71046; 72125; 70450; 99284; 96372; J1885

== ENCOUNTER 2021-01-29 17:22 | Emergency (ER) | payer MEDICARE, OTHER ==
[2021-01-29] MEDS ORDERED: SODIUM CHLORIDE 0.9% 1,000 ML IV ONE (19:22)
--- NOTE | 2021-01-29 19:42 | ED ---
General Adult HPI <Bong Ferrari - Last Filed: 01/30/21 06:25> - General Source: patient Mode of arrival: wheelchair Limitations: no limitations <Mariluz Fall - Last Filed: 01/30/21 19:37> - General Chief complaint: Psychiatric Symptoms Stated complaint: Mental Health Time Seen by Provider: 01/29/21 19:07 - History of Present Illness Initial comments: 65-year-old female patient presents to the emergency department today for evaluation of "seizures". Patient states that she believes her medications are interacting with one another causing seizures. She reports seizures as a twitching beneath her skin. States her last 3-4 seconds and occur multiple times per day. Patient was in to see her social sciences chair at [facility] today. social worker health services became concerned due to her fixation on this issue and filled out a petition to have her present to the emergency department for evaluation. There is some concern that she has not taking her medications appropriately. They are concerned because she is exhibiting paranoid behavior. Patient denies any recent rash, fever, chills, cough, shortness of breath, chest pain, abdominal pain, nausea, vomiting, diarrhea, constipation, back pain, numbness, tingling, dizziness, weakness, hematuria, dysuria, urinary urgency, urinary frequency, headache, visual changes, or any other complaints. (Mariluz Fall) - Related Data Home Medications Medication Instructions Recorded Confirmed Levothyroxine Sodium [Synthroid] 50 mcg PO DAILY 06/01/15 01/29/21 Meloxicam [Mobic] 7.5 mg PO BID PRN 01/10/17 01/29/21 metFORMIN HCL [Glucophage] 500 mg PO BID 12/15/17 01/29/21 Atorvastatin [Lipitor] 20 mg PO HS 03/07/18 01/29/21 rOPINIRole HCL [Requip] 0.5 mg PO HS 06/09/18 01/29/21 lamoTRIgine [LaMICtal] 200 mg PO DAILY 04/06/19 01/29/21 Albuterol Sulfate [Ventolin HFA] 2 puff INHALATION RT-Q6H PRN 12/22/20 01/29/21 Cyclobenzaprine [Flexeril] 5 mg PO BID PRN 12/22/20 01/29/21 Ergocalciferol [Vitamin D2 (1250 1,250 mcg PO Q7D 12/22/20 01/29/21 Mcg = 13421 Iu)] Ferrous Sulfate [Iron (65 MG 325 mg PO DAILY 12/22/20 01/29/21 Elemental)] [place] Carbonate 300 mg PO BID 12/22/20 01/29/21 Oxybutynin Chloride [Ditropan] 5 mg PO BID 12/22/20 01/29/21 atenoloL [Atenolol] 12.5 mg PO DAILY 12/22/20 01/29/21 clonazePAM [KlonoPIN] 0.5 mg PO TID 12/22/20 01/29/21 fluvoxaMINE MALEATE 50 mg PO QID 12/22/20 01/29/21 Erythromycin/[place]bar Perox 3-5% 1 applic TOPICAL BID 01/23/21 01/29/21 HYDROcodone/APAP 5-325MG [[place] 1 tab PO DAILY PRN 01/23/21 01/29/21 5-325] Loratadine [Claritin] 10 mg PO DAILY 01/23/21 01/29/21 Lumateperone Tosylate [Caplyta] 42 mg PO DAILY 01/23/21 01/29/21 Omeprazole 20 mg PO DAILY 01/23/21 01/29/21 Pregabalin [Lyrica] 50 mg PO TID 01/23/21 01/29/21 Promethaz-Cod 6.25-10 mg/5 ml 5 ml PO Q6H PRN 01/23/21 01/29/21 [Phenergan with Codeine] Ziprasidone [Geodon] 40 mg PO BID 01/23/21 01/29/21 Allergies Allergy/AdvReac Type Severity Reaction Status Date / Time amoxicillin Allergy Rash/Hives Verified 01/29/21 22:50 codeine Allergy Unknown Verified 01/29/21 22:50 Sulfa (Sulfonamide Allergy Unknown Verified 01/29/21 22:50 Antibiotics) sulfamethoxazole Allergy Unknown Verified 01/29/21 22:50 [From Bactrim] thioridazine [From Mellaril] Allergy Unknown Verified 01/29/21 22:50 trimethoprim [From Bactrim] Allergy Unknown Verified 01/29/21 22:50 Review of Systems ROS Other: All systems not noted in ROS Statement are negative. <Bong Ferrari - Last Filed: 01/30/21 06:25> ROS Other: All systems not noted in ROS Statement are negative. <Mariluz Fall - Last Filed: 01/30/21 19:37> ROS Statement: Those systems with pertinent positive or pertinent negative responses have been documented in the HPI. Past Medical History Past Medical History: Chest Pain / Angina, Diabetes Mellitus, Eye Disorder, GERD/Reflux, Hyperlipidemia, Hypertension, Memory Impairment, Myocardial Infa rction ([place]), Osteoarthritis (OA), Seizure Disorder, Sleep Apnea/CPAP/BIPAP, Thyroid Disorder Additional Past Medical History / Comment(s): SINUSITIS. PAST SEIZURE, PT STATED WAS DUE TO MEDICATIONS SHE WAS ON 20 yrs ago. VARICOSE VEINS, NEUROPATHY, has CPAP machine but does not use it. Episodes of lightheadedness and dizziness when rising, X1 yr. Short term memory impairment, cataracts. Last Myocardial Infarction Date:: 2016 History of Any Multi-Drug Resistant Organisms: None Reported Past Surgical History: Section Additional Past Surgical History / Comment(s): Nasal Surgery. [facility] has never had a Cardiac cath. [facility] saw Dr Padilla 10/2020 had a stress test and he said it was okay Past Anesthesia/Blood Transfusion Reactions: Motion Sickness Past Psychological History: ADD/ADHD, Anxiety, Bipolar, Depression, Schizoaffective Disorder Smoking Status: Never smoker Past Alcohol Use History: None Reported Past Drug Use History: None Reported - Past Family History Father Family Medical History: CVA/TIA Additional Family Medical History / Comment(s): SMOKED AND USED ETOH- AGE 78- FROM STROKE Mother Additional Family Medical History / Comment(s): CRONIC BRONCHITIS.REMOVED PART OF ONE LUNG d/t the bronchitis infection <Mariluz Fall - Last Filed: 01/30/21 19:37> General Exam Limitations: no limitations General appearance: alert, in no apparent distress, other (This is a well- developed, well-nourished adult female patient in no acute distress. Vital signs upon presentation are temperature 98.3F, pulse 72, respirations 20, blood pressure 121/78, pulse ox 95% on room air.) Eye exam: Present: normal appearance, PERRL, EOMI. Absent: scleral icterus, conjunctival injection, periorbital swelling ENT exam: Present: normal exam, normal oropharynx, mucous membranes moist Respiratory exam: Present: normal lung sounds bilaterally. Absent: respiratory distress, wheezes, rales, rhonchi, stridor Cardiovascular Exam: Present: regular rate, normal rhythm, normal heart sounds. Absent: systolic murmur, diastolic murmur, rubs, gallop, clicks GI/Abdominal exam: Present: soft, normal bowel sounds. Absent: distended, tenderness, guarding, rebound, rigid Neurological exam: Present: alert, oriented X3, CN II-XII intact, other (Strength in all 4 extremities is 5/5. No seizure activity noted.) Psychiatric exam: Present: normal affect, normal mood Skin exam: Present: warm, dry, intact, normal color. Absent: rash <Mariluz Fall - Last Filed: 01/30/21 19:37> Course Vital Signs 01/29/21 01/30/21 01/30/21 18:52 00:43 06:21 Temperature 98.3 F 98.1 F Pulse Rate 72 72 78 Respiratory 20 18 18 Rate Blood Pressure 121/78 138/81 148/85 O2 Sat by Pulse 95 98 98 Oximetry EKG Findings - EKG Comments: EKG Findings:: EKG obtained at 2043 shows normal sinus rhythm with a ventricular rate is 73, AR interval 150, QRS duration 78, QT 400, QTC 440. No evidence of ST elevation or depression. <Mariluz Fall - Last Filed: 01/30/21 19:37> Medical Decision Making - Lab Data Result diagrams: 01/29/21 19:22 01/29/21 19:22 <Bong Ferrari - Last Filed: 01/30/21 06:25> - Lab Data Result diagrams: 01/29/21 19:22 01/29/21 19:22 <Mariluz Fall - Last Filed: 01/30/21 19:37> - Medical Decision Making 65-year-old female patient presented to the emergency department today petitioned by her social sciences chair activity mental health. She was evaluated and cleared medically. Care was delayed due to emergency psychiatric services being unable to evaluate for several hours. Care was handed off to my attending Dr. Ferrari. Review of the record reveals that she was discharged home. (Mariluz Fall) - Lab Data Lab Results 01/29/21 01/29/21 01/29/21 Range/Units 19:22 19:22 19:22 WBC 10.7 H (3.8-10.6) k/uL RBC 5.23 (3.80-5.40) m/uL Hgb 13.8 (11.4-16.0) gm/dL Hct 41.0 (34.0-46.0) % MCV 78.4 L (80.0-100.0) fL MCH 26.4 (25.0-35.0) pg MCHC 33.6 (31.0-37.0) g/dL RDW 15.5 (11.5-15.5) % Plt Count 242 (150-450) k/uL MPV 6.9 Neutrophils % 67 % Lymphocytes % 23 % Monocytes % 5 % Eosinophils % 3 % Basophils % 1 % Neutrophils # 7.1 (1.3-7.7) k/uL Lymphocytes # 2.5 (1.0-4.8) k/uL Monocytes # 0.5 (0-1.0) k/uL Eosinophils # 0.3 (0-0.7) k/uL Basophils # 0.1 (0-0.2) k/uL Microcytosis Slight Sodium 141 (137-145) mmol/L Potassium 4.3 (3.5-5.1) mmol/L Chloride 104 (98-107) mmol/L Carbon Dioxide 28 (22-30) mmol/L Anion Gap 9 mmol/L BUN 17 (7-17) mg/dL Creatinine 0.99 (0.52-1.04) mg/dL Est GFR (CKD-EPI)AfAm 70 (>60 ml/min/1.73 sqM) Est GFR (CKD-EPI)NonAf 61 (>60 ml/min/1.73 sqM) Glucose 90 (74-99) mg/dL Calcium 9.8 (8.4-10.2) mg/dL Total Bilirubin 0.2 (0.2-1.3) mg/dL AST 27 (14-36) U/L ALT 36 H (4-34) U/L Alkaline Phosphatase 85 (38-126) U/L Total Protein 6.7 (6.3-8.2) g/dL Albumin 4.2 (3.5-5.0) g/dL Urine Color Yellow Urine Appearance Clear (Clear) Urine pH 5.5 (5.0-8.0) Ur Specific [place] 1.024 (1.001-1.035) Urine Protein Trace H (Negative) Urine Glucose (UA) Negative (Negative) Urine Ketones Negative (Negative) Urine Blood Negative (Negative) Urine Nitrite Negative (Negative) Urine Bilirubin Negative (Negative) Urine Urobilinogen <2.0 (<2.0) mg/dL Ur Leukocyte Esterase Small H (Negative) Urine RBC 2 (0-5) /hpf Urine WBC 14 H (0-5) /hpf Ur Squamous Epith Cells <1 (0-4) /hpf Hyaline Casts 1 (0-2) /lpf Urine Mucus Rare H (None) /hpf Urine Opiates Screen Detected H (NotDetected) Ur Oxycodone Screen Not Detected (NotDetected) Urine Methadone Screen Not Detected (NotDetected) Ur Propoxyphene Screen Not Detected (NotDetected) Ur Barbiturates Screen Not Detected (NotDetected) U Tricyclic Antidepress Not Detected (NotDetected) Ur Phencyclidine Scrn Not Detected (NotDetected) Ur Amphetamines Screen Not Detected (NotDetected) U Methamphetamines Scrn Not Detected (NotDetected) U Benzodiazepines Scrn Not Detected (NotDetected) [place] 0.3 mmol/L Urine Cocaine Screen Not Detected (NotDetected) U Marijuana (THC) Screen Not Detected (NotDetected) Serum Alcohol <10 mg/dL Disposition Is patient prescribed a controlled substance at d/c from ED?: No <Bong Ferrari - Last Filed: 01/30/21 06:25> <Mariluz Fall - Last Filed: 01/30/21 19:37> Clinical Impression: Schizoaffective disorder Disposition: HOME SELF-CARE Condition: Good Instructions (If sedation given, give patient instructions): Mood Disorders (ED) Referrals: Analia Boogie MD [Primary Care Provider] - 1-2 days
[2021-01-29 20:01] LABS: Basophils # (A) 0.1 k/uL (0-0.2); Basophils % (A) 1 %; Eosinophils # (A) 0.3 k/uL (0-0.7); Eosinophils % (A) 3 %; HGB 13.8 gm/dL (11.4-16.0); Lymphocytes # (A) 2.5 k/uL (1.0-4.8); Lymphocytes % (A) 23 %; MCH 26.4 pg (25.0-35.0); MCHC 33.6 g/dL (31.0-37.0); MCV 78.4 fL (80.0-100.0); Mean Platelet Volume 6.9; Microcytosis Slight; Monocytes # (A) 0.5 k/uL (0-1.0); Monocytes % (A) 5 %; Neutrophils # (A) 7.1 k/uL (1.3-7.7); Neutrophils % (A) 67 %; Platelet Count 242 k/uL (150-450); RBC 5.23 m/uL (3.80-5.40); RDW 15.5 % (11.5-15.5); WBC 10.7 k/uL (3.8-10.6)
[2021-01-29 20:03] LABS: Appearance,Urine Clear (Clear); Bilirubin,Urine Negative (Negative); Blood,Urine Negative (Negative); Color,Urine Yellow; Glucose,Urine (UA) Negative (Negative); Hyaline Casts,Urine 1 /lpf (0-2); Ketones,Urine Negative (Negative); Leukocyte Esterase,Urine Small (Negative); Mucus,Urine Rare /hpf; Nitrite,Urine Negative (Negative); PH, Urine 5.5 (5.0-8.0); Protein,Urine Trace (Negative); RBC,Urine 2 /hpf (0-5); Specific Gravity,Urine 1.024 (1.001-1.035); Squamous Epithelial Cell,Urine <1 /hpf (0-4); Urobilinogen,Urine <2.0 mg/dL (<2.0); WBC,Urine 14 /hpf (0-5)
[2021-01-29 20:08] LABS: ALT 36 U/L (4-34); AST 27 U/L (14-36); African American GFR (CKD) 70 (>60 ml/min/1.73 sqM); Albumin 4.2 g/dL (3.5-5.0); Alcohol <10 mg/dL; Alkaline Phosphatase 85 U/L (38-126); Anion Gap 9 mmol/L; Blood Urea Nitrogen 17 mg/dL (7-17); Calcium 9.8 mg/dL (8.4-10.2); Carbon Dioxide 28 mmol/L (22-30); Chloride 104 mmol/L (98-107); Glucose 90 mg/dL (74-99); Lithium 0.3 mmol/L; Non-African American GFR(CKD) 61 (>60 ml/min/1.73 sqM); Potassium 4.3 mmol/L (3.5-5.1); Sodium 141 mmol/L (137-145); Total Bilirubin 0.2 mg/dL (0.2-1.3); Total Protein 6.7 g/dL (6.3-8.2)
[2021-01-29 20:12] LABS: Amphetamine Screen,Urine Not Detected (NotDetected); Barbiturate Screen,Urine Not Detected (NotDetected); Benzodiazepines Screen,Urine Not Detected (NotDetected); Cocaine Screen,Urine Not Detected (NotDetected); Methadone Screen, Urine Not Detected (NotDetected); Opiate Screen,Urine Detected (NotDetected); Oxycodone Screen, Urine Not Detected (NotDetected); Phencyclidine Screen,Urine Not Detected (NotDetected); Tricyclic Antidepressant,Urine Not Detected (NotDetected); Urn Cannabinoid Scrn Not Detected (NotDetected)
[2021-01-29] MEDS ORDERED: HYDROcodone/APAP 5-325MG 1 EACH TAB PO STA (22:59)
[2021-01-30 00:44] VITALS: RESP 18; TEMP 98.1
[2021-01-30] MEDS ORDERED: IBUPROFEN 600 MG TAB PO STA (04:25)
[2021-01-30 06:24] VITALS: BP 148/85; PULSE 78
== END 2021-01-30 06:35 | disposition home or self-care (01) ==
LOC: EC 17:22
DX: F25.9 Schizoaffective disorder, unspecified (principal); F41.9 Anxiety disorder, unspecified; F32.9 Major depressive disorder, single episode, unspecified; F90.9 Attention-deficit hyperactivity disorder, unspecified type; E11.9 Type 2 diabetes mellitus without complications; E78.5 Hyperlipidemia, unspecified; I10 Essential (primary) hypertension; K21.9 Gastro-esophageal reflux disease without esophagitis; I25.2 Old myocardial infarction; M19.90 Unspecified osteoarthritis, unspecified site; G47.30 Sleep apnea, unspecified; Z79.84 Long term (current) use of oral hypoglycemic drugs; Z79.899 Other long term (current) drug therapy
CPT/HCPCS: 36415; 93005; 80053; 80178; 85025; 81001; 80306; 87086; 99285; 96360; G0480; 80320

== ENCOUNTER 2021-02-09 15:37 | Emergency (ER) | payer MEDICARE, OTHER ==
[2021-02-09 15:45] VITALS: BP 156/68; PULSE 80; RESP 18; TEMP 98
[2021-02-09] MEDS ORDERED: LORazepam 1 MG TAB PO STA (16:11)
--- NOTE | 2021-02-09 16:15 | ED ---
General Adult HPI - General Chief complaint: Psychiatric Symptoms Stated complaint: Mental health Time Seen by Provider: 02/09/21 15:51 Source: patient, RN notes reviewed, old records reviewed Mode of arrival: ambulatory Limitations: no limitations - History of Present Illness Initial comments: 65-year-old female with schizoaffective disorder, depression, anxiety presenting for anxiety and medication refill. Patient states she is out of her Ativan. She is requesting this medication for worsening anxiety. She does report some depression but denies any suicidal ideation or homicidal ideation. She is alert and oriented to time my evaluation. She is had mental illness for many years and follows regularly with [facility]. She states she has an appointment early this coming week with [facility] in her psychiatrist and states that the pharmacy will have her Ativan on Wednesday which is 2 days from now. She is requesting Ativan for symptom relief. - Related Data Home Medications Medication Instructions Recorded Confirmed Levothyroxine Sodium [Synthroid] 50 mcg PO DAILY 06/01/15 01/29/21 Meloxicam [Mobic] 7.5 mg PO BID PRN 01/10/17 01/29/21 metFORMIN HCL [Glucophage] 500 mg PO BID 12/15/17 01/29/21 Atorvastatin [Lipitor] 20 mg PO HS 03/07/18 01/29/21 rOPINIRole HCL [Requip] 0.5 mg PO HS 06/09/18 01/29/21 lamoTRIgine [LaMICtal] 200 mg PO DAILY 04/06/19 01/29/21 Albuterol Sulfate [Ventolin HFA] 2 puff INHALATION RT-Q6H PRN 12/22/20 01/29/21 Cyclobenzaprine [Flexeril] 5 mg PO BID PRN 12/22/20 01/29/21 Ergocalciferol [Vitamin D2 (1250 1,250 mcg PO Q7D 12/22/20 01/29/21 Mcg = 25117 Iu)] Ferrous Sulfate [Iron (65 MG 325 mg PO DAILY 12/22/20 01/29/21 Elemental)] [place] Carbonate 300 mg PO BID 12/22/20 01/29/21 Oxybutynin Chloride [Ditropan] 5 mg PO BID 12/22/20 01/29/21 atenoloL [Atenolol] 12.5 mg PO DAILY 12/22/20 01/29/21 clonazePAM [KlonoPIN] 0.5 mg PO TID 12/22/20 01/29/21 fluvoxaMINE MALEATE 50 mg PO QID 12/22/20 01/29/21 Erythromycin/Akbar Perox 3-5% 1 applic TOPICAL BID 01/23/21 01/29/21 HYDROcodone/APAP 5-325MG [[place] 1 tab PO DAILY PRN 01/23/21 01/29/21 5-325] Loratadine [Claritin] 10 mg PO DAILY 01/23/21 01/29/21 Lumateperone Tosylate [Caplyta] 42 mg PO DAILY 01/23/21 01/29/21 Omeprazole 20 mg PO DAILY 01/23/21 01/29/21 Pregabalin [Lyrica] 50 mg PO TID 01/23/21 01/29/21 Promethaz-Cod 6.25-10 mg/5 ml 5 ml PO Q6H PRN 01/23/21 01/29/21 [Phenergan with Codeine] Ziprasidone [Geodon] 40 mg PO BID 01/23/21 01/29/21 Allergies Allergy/AdvReac Type Severity Reaction Status Date / Time amoxicillin Allergy Rash/Hives Verified 02/09/21 15:45 codeine Allergy Unknown Verified 02/09/21 15:45 Sulfa (Sulfonamide Allergy Unknown Verified 02/09/21 15:45 Antibiotics) sulfamethoxazole Allergy Unknown Verified 02/09/21 15:45 [From Bactrim] thioridazine [From Mellaril] Allergy Unknown Verified 02/09/21 15:45 trimethoprim [From Bactrim] Allergy Unknown Verified 02/09/21 15:45 Review of Systems ROS Statement: Those systems with pertinent positive or pertinent negative responses have been documented in the HPI. ROS Other: All systems not noted in ROS Statement are negative. Past Medical History Past Medical History: Chest Pain / Angina, Diabetes Mellitus, Eye Disorder, GERD/Reflux, Hyperlipidemia, Hypertension, Memory Impairment, Myocardial Infarction ([place]), Osteoarthritis (OA), Seizure Disorder, Sleep Apnea/CPAP/BIPAP, Thyroid Disorder Additional Past Medical History / Comment(s): SINUSITIS. PAST SEIZURE, PT STATED WAS DUE TO MEDICATIONS SHE WAS ON 20 yrs ago. VARICOSE VEINS, NEUROPATHY, has CPAP machine but does not use it. Episodes of lightheadedness and dizziness when rising, X1 yr. Short term memory impairment, cataracts. Last Myocardial Infarction Date:: 2016 History of Any Multi-Drug Resistant Organisms: None Reported Past Surgical History: Section Additional Past Surgical History / Comment(s): Nasal Surgery. states has never had a Cardiac cath. States saw Dr Padilla 10/2020 had a stress test and he said it was okay Past Anesthesia/Blood Transfusion Reactions: Motion Sickness Past Psychological History: ADD/ADHD, Anxiety, Bipolar, Depression, Schizoaffective Disorder Smoking Status: Never smoker Past Alcohol Use History: None Reported Past Drug Use History: None Reported - Past Family History Father Family Medical History: CVA/TIA Additional Family Medical History / Comment(s): SMOKED AND USED ETOH- AGE 78- FROM STROKE Mother Additional Family Medical History / Comment(s): CRONIC BRONCHITIS.REMOVED PART OF ONE LUNG d/t the bronchitis infection General Exam Limitations: no limitations General appearance: alert, anxious Head exam: Present: atraumatic, normocephalic Eye exam: Present: normal appearance, PERRL ENT exam: Present: normal exam Neck exam: Present: normal inspection. Absent: tenderness, meningismus Respiratory exam: Present: normal lung sounds bilaterally. Absent: respiratory distress, wheezes Cardiovascular Exam: Present: regular rate, normal rhythm GI/Abdominal exam: Present: soft. Absent: distended, tenderness, guarding Extremities exam: Present: normal inspection, normal capillary refill. Absent: pedal edema Back exam: Present: normal inspection Neurological exam: Present: alert, oriented X3 Psychiatric exam: Present: anxious, other (Patient alert and oriented.). Absent: homicidal ideation, suicidal ideation Skin exam: Present: warm, dry, intact. Absent: cyanosis, diaphoretic Course Vital Signs 02/09/21 15:40 Temperature 98.0 F Pulse Rate 80 Respiratory 18 Rate Blood Pressure 156/68 O2 Sat by Pulse 96 Oximetry Medical Decision Making - Medical Decision Making 65-year-old female with known mental illness presenting for anxiety and requesting a single dose of Ativan. She states she has good follow-up in the next 24-48 hours including a refill of her medication from her pharmacy was out of the medication. She is not suicidal or homicidal. I did give 1 mg of Ativan in the emergency department, return parameters are discussed. Patient thankful and agreeable. Disposition Clinical Impression: Schizoaffective disorder, Acute anxiety Disposition: HOME SELF-CARE Condition: Fair Instructions (If sedation given, give patient instructions): Anxiety (ED) Additional Instructions: Please follow up with community mental health tomorrow. Please return with any worsening or changing symptoms. Is patient prescribed a controlled substance at d/c from ED?: No Referrals: Analia Boogie MD [Primary Care Provider] - 1-2 days Time of Disposition: 16:14
== END 2021-02-09 16:21 | disposition home or self-care (01) ==
LOC: EC 15:37
DX: F41.9 Anxiety disorder, unspecified (principal); F25.9 Schizoaffective disorder, unspecified; Z76.0 Encounter for issue of repeat prescription; E78.5 Hyperlipidemia, unspecified; I10 Essential (primary) hypertension; I25.2 Old myocardial infarction; K21.9 Gastro-esophageal reflux disease without esophagitis; G40.909 Epilepsy, unspecified, not intractable, without status epilepticus; F32.9 Major depressive disorder, single episode, unspecified; E11.40 Type 2 diabetes mellitus with diabetic neuropathy, unspecified; E11.65 Type 2 diabetes mellitus with hyperglycemia; G47.30 Sleep apnea, unspecified; E07.9 Disorder of thyroid, unspecified; Z79.890 Hormone replacement therapy; Z79.1 Long term (current) use of non-steroidal anti-inflammatories (NSAID); Z79.84 Long term (current) use of oral hypoglycemic drugs; Z79.899 Other long term (current) drug therapy; Z88.0 Allergy status to penicillin; Z88.5 Allergy status to narcotic agent; Z88.2 Allergy status to sulfonamides; Z88.8 Allergy status to other drugs, medicaments and biological substances; Z88.1 Allergy status to other antibiotic agents
CPT/HCPCS: 99283

== ENCOUNTER → 2022-08-29 | Outpatient (CLI) | payer MEDICARE, OTHER ==
[2022-08-29 13:08] LABS: African American GFR (CKD) 77.8 (60.0-200.0); Blood Urea Nitrogen 19.1 mg/dL (9.0-27.0); Chol/HDL Ratio 2.56 Ratio; Glucose 165 mg/dL (70-110); LDL Cholesterol,Calculated 26.7 mg/dL (0.0-131.0); Non-African American GFR(CKD) 67.1 (60.0-200.0)
== END | disposition home or self-care (01) ==
LOC: LABWHC1 08:38
PROVIDERS: ATTEND Psychiatry & Neurology Psychiatry
DX: Z79.899 Other long term (current) drug therapy (principal)
CPT/HCPCS: 36415; 80061; 80178; 82565; 82947; 83036; 84439; 84443; 84520

== ENCOUNTER 2022-10-14 14:41 | Inpatient (IN) | payer MEDICARE, OTHER ==
[2022-10-14] MEDS ORDERED: SODIUM CHLORIDE 0.9% 500 ML 500 ML IV ONE (15:19)
[2022-10-14] MEDS ORDERED: SODIUM CHLORIDE 0.9% 1,000 ML IV STA (15:19)
--- NOTE | 2022-10-14 15:25 | ED ---
Altered Mental Status HPI - General Source: EMS Mode of arrival: EMS Limitations: altered mental status - History of Present Illness MD Complaint: confusion -: unknown Severity: moderate Associated Symptoms: other (Recent falls) <Bong Ferrari - Last Filed: 10/14/22 15:47> <Norberto Khoury - Last Filed: 10/15/22 06:45> - General Chief Complaint: Altered Mental Status Stated Complaint: Fall,AMS Time Seen by Provider: 10/14/22 15:10 - History of Present Illness Initial Comments: This patient is a 67-year-old woman arriving by ambulance to have evaluation for altered mental status. The patient had visiting caregiver, and evaluate her this morning because reportedly her speech was somewhat slurred on a phone call this morning. When the caregiver saw the patient, she phoned EMS and had her brought in by ambulance. Patient also reports having had a fall yesterday. Patient states his ground level fall. She is currently denying pains. (Bong Ferrari) - Related Data Home Medications Medication Instructions Recorded Confirmed Levothyroxine Sodium [Synthroid] 50 mcg PO DAILY 06/01/15 10/14/22 Meloxicam [Mobic] 7.5 mg PO DAILY 01/10/17 10/14/22 metFORMIN HCL [Glucophage] 500 mg PO BID 12/15/17 10/14/22 Atorvastatin [Lipitor] 20 mg PO HS 03/07/18 10/14/22 rOPINIRole HCL [Requip] 0.5 mg PO HS 06/09/18 10/14/22 lamoTRIgine [LaMICtal] 200 mg PO DAILY 04/06/19 10/14/22 [place] Carbonate 600 mg PO DAILY 12/22/20 10/14/22 Oxybutynin Chloride [Ditropan] 5 mg PO BID 12/22/20 10/14/22 atenoloL 25 mg PO DAILY 12/22/20 10/14/22 Omeprazole 20 mg PO DAILY 01/23/21 10/14/22 Ascorbic Acid [Vitamin C] 500 mg PO DAILY 10/14/22 10/14/22 Cholecalciferol [Vitamin D3 (25 50 mcg PO DAILY 10/14/22 10/14/22 Mcg = 1000 Iu)] LORazepam [Ativan] 0.5 mg PO QID 10/14/22 10/14/22 Levocetirizine Dihydrochloride 5 mg PO DAILY 10/14/22 10/14/22 PARoxetine [Paxil] 10 mg PO QID 10/14/22 10/14/22 Trihexyphenidyl [Artane] 2 mg PO QID 10/14/22 10/14/22 Allergies Allergy/AdvReac Type Severity Reaction Status Date / Time amoxicillin Allergy Rash/Hives Verified 10/14/22 16:39 codeine Allergy Unknown Verified 10/14/22 16:39 Sulfa (Sulfonamide Allergy Unknown Verified 10/14/22 16:39 Antibiotics) sulfamethoxazole Allergy Unknown Verified 10/14/22 16:39 [From Bactrim] thioridazine [From Mellaril] Allergy Unknown Verified 10/14/22 16:39 trimethoprim [From Bactrim] Allergy Unknown Verified 10/14/22 16:39 Review of Systems ROS Other: All systems not noted in ROS Statement are negative. Limitations: ROS unobtainable due to patients medical condition Constitutional: Reports: weakness Cardiovascular: Denies: chest pain Gastrointestinal: Denies: abdominal pain Neurological: Denies: headache <Bong Ferrari - Last Filed: 10/14/22 15:47> ROS Other: All systems not noted in ROS Statement are negative. <Norberto Khoury - Last Filed: 10/15/22 06:45> ROS Statement: Those systems with pertinent positive or pertinent negative responses have been documented in the HPI. Past Medical History Past Medical History: Chest Pain / Angina, Diabetes Mellitus, Eye Disorder, GERD/Reflux, Hyperlipidemia, Hypertension, Memory Impairment, Myocardial Infarction ([place]), Osteoarthritis (OA), Seizure Disorder, Sleep Apnea/CPAP/BIPAP, Thyroid Disorder Additional Past Medical History / Comment(s): SINUSITIS. PAST SEIZURE, PT STATED WAS DUE TO MEDICATIONS SHE WAS ON 20 yrs ago. VARICOSE VEINS, NEUROPATHY, has CPAP machine but does not use it. Episodes of lightheadedness and dizziness when rising, X1 yr. Short term memory impairment, cataracts. Last Myocardial Infarction Date:: 2016 History of Any Multi-Drug Resistant Organisms: None Reported Past Surgical History: Section Additional Past Surgical History / Comment(s): Nasal Surgery. [facility] has never had a Cardiac cath. [facility] saw Dr Padilla 10/2020 had a stress test and he said it was okay Past Anesthesia/Blood Transfusion Reactions: Motion Sickness Past Psychological History: ADD/ADHD, Anxiety, Bipolar, Depression, Schizoaffective Disorder Smoking Status: Never smoker Past Alcohol Use History: None Reported Past Drug Use History: None Reported - Past Family History Father Family Medical History: CVA/TIA Additional Family Medical History / Comment(s): SMOKED AND USED ETOH- AGE 78- FROM STROKE Mother Additional Family Medical History / Comment(s): CRONIC BRONCHITIS.REMOVED PART OF ONE LUNG d/t the bronchitis infection <Bong Ferrari - Last Filed: 10/14/22 15:47> General Exam Limitations: altered mental status General appearance: alert Head exam: Present: atraumatic, normocephalic Eye exam: Present: normal appearance, PERRL, EOMI. Absent: scleral icterus, conjunctival injection, nystagmus ENT exam: Present: mucous membranes dry Neck exam: Present: normal inspection, full ROM. Absent: tenderness, meningismus Respiratory exam: Present: normal lung sounds bilaterally. Absent: respiratory distress, wheezes, rales, rhonchi, stridor, chest wall tenderness, accessory muscle use Cardiovascular Exam: Present: regular rate, normal rhythm, normal heart sounds. Absent: systolic murmur, diastolic murmur, rubs, gallop GI/Abdominal exam: Present: soft. Absent: distended, tenderness, guarding, rebound, rigid, mass Extremities exam: Present: normal inspection, normal capillary refill. Absent: pedal edema, calf tenderness Back exam: Present: normal inspection Neurological exam: Present: alert, CN II-XII intact, other (There is very mild dysarthria). Absent: oriented X3 (Patient is oriented to person and place), motor sensory deficit Skin exam: Present: warm, dry, intact, normal color. Absent: rash <Bong Ferrari - Last Filed: 10/14/22 15:47> Course Vital Signs 10/14/22 10/14/22 10/14/22 14:46 15:00 22:00 Temperature 98.2 F 98.1 F Pulse Rate 80 72 Respiratory 17 20 16 Rate Blood Pressure 151/79 151/79 147/82 O2 Sat by Pulse 97 96 97 Oximetry 10/15/22 10/15/22 02:20 06:28 Temperature 98.6 F 98.7 F Pulse Rate 66 64 Respiratory 16 16 Rate Blood Pressure 147/88 142/48 O2 Sat by Pulse 98 97 Oximetry Medical Decision Making - EKG Data -: EKG Interpreted by Or EKG shows normal: sinus rhythm, axis (Borderline right axis), intervals ( Normal), QRS complexes (Normal) Rate: normal (Rate 69 bpm) Interpretation: nonspecific ST-T wave changes <Bong Ferrari - Last Filed: 10/14/22 15:47> - Lab Data Result diagrams: 10/14/22 15:30 10/14/22 15:30 <Norberto Khoury - Last Filed: 10/15/22 06:45> - Lab Data Lab Results 10/14/22 10/14/22 10/14/22 Range/Units 15:30 15:30 15:30 WBC 17.2 H (3.8-10.6) k/uL RBC 4.75 (3.80-5.40) m/uL Hgb 13.3 (11.4-16.0) gm/dL Hct 38.8 (34.0-46.0) % MCV 81.7 (80.0-100.0) fL MCH 27.9 (25.0-35.0) pg MCHC 34.2 (31.0-37.0) g/dL RDW 13.7 (11.5-15.5) % Plt Count 283 (150-450) k/uL MPV 8.1 Neutrophils % 87 % Lymphocytes % 9 % Monocytes % 3 % Eosinophils % 0 % Basophils % 0 % Neutrophils # 14.9 H (1.3-7.7) k/uL Lymphocytes # 1.6 (1.0-4.8) k/uL Monocytes # 0.5 (0-1.0) k/uL Eosinophils # 0.0 (0-0.7) k/uL Basophils # 0.0 (0-0.2) k/uL PT 9.8 (9.0-12.0) sec INR 0.9 (<1.2) APTT 20.5 L (22.0-30.0) sec Sodium 137 (137-145) mmol/L Potassium 4.6 (3.5-5.1) mmol/L Chloride 104 (98-107) mmol/L Carbon Dioxide 23 (22-30) mmol/L Anion Gap 10 mmol/L BUN 33 H (7-17) mg/dL Creatinine 0.93 (0.52-1.04) mg/dL Est GFR (CKD-EPI)AfAm 75 (>60 ml/min/1.73 sqM) Est GFR (CKD-EPI)NonAf 65 (>60 ml/min/1.73 sqM) Glucose 186 H (74-99) mg/dL POC Glucose (mg/dL) (70-110) mg/dL POC Glu Shoe Stitcher Odd ID Calcium 9.6 (8.4-10.2) mg/dL Total Bilirubin 0.2 (0.2-1.3) mg/dL AST 27 (14-36) U/L ALT 39 H (4-34) U/L Alkaline Phosphatase 92 (38-126) U/L Ammonia (<30) umol/L Troponin I (0.000-0.034) ng/mL Total Protein 6.3 (6.3-8.2) g/dL Albumin 4.1 (3.5-5.0) g/dL Urine Color Urine Appearance (Clear) Urine pH (5.0-8.0) Ur Specific [place] (1.001-1.035) Urine Protein (Negative) Urine Glucose (UA) (Negative) Urine Ketones (Negative) Urine Blood (Negative) Urine Nitrite (Negative) Urine Bilirubin (Negative) Urine Urobilinogen (<2.0) mg/dL Ur Leukocyte Esterase (Negative) Urine RBC (0-5) /hpf Urine WBC (0-5) /hpf Ur Squamous Epith Cells (0-4) /hpf Urine Bacteria (None) /hpf Urine Mucus (None) /hpf Urine Opiates Screen (NotDetected) Ur Oxycodone Screen (NotDetected) Urine Methadone Screen (NotDetected) Ur Propoxyphene Screen (NotDetected) Ur Barbiturates Screen (NotDetected) U Tricyclic Antidepress (NotDetected) Ur Phencyclidine Scrn (NotDetected) Ur Amphetamines Screen (NotDetected) U Methamphetamines Scrn (NotDetected) U Benzodiazepines Scrn (NotDetected) Urine Cocaine Screen (NotDetected) U Marijuana (THC) Screen (NotDetected) Serum Alcohol <10 mg/dL 10/14/22 10/14/2210/14/22 Range/Units 15:30 15:30 21:53 WBC (3.8-10.6) k/uL RBC (3.80-5.40) m/uL Hgb (11.4-16.0) gm/dL Hct (34.0-46.0) % MCV (80.0-100.0) fL MCH (25.0-35.0) pg MCHC (31.0-37.0) g/dL RDW (11.5-15.5) % Plt Count (150-450) k/uL MPV Neutrophils % % Lymphocytes % % Monocytes % % Eosinophils % % Basophils % % Neutrophils # (1.3-7.7) k/uL Lymphocytes # (1.0-4.8) k/uL Monocytes # (0-1.0) k/uL Eosinophils # (0-0.7) k/uL Basophils # (0-0.2) k/uL PT (9.0-12.0) sec INR (<1.2) APTT (22.0-30.0) sec Sodium (137-145) mmol/L Potassium (3.5-5.1) mmol/L Chloride (98-107) mmol/L Carbon Dioxide (22-30) mmol/L Anion Gap mmol/L BUN (7-17) mg/dL Creatinine (0.52-1.04) mg/dL Est GFR (CKD-EPI)AfAm (>60 ml/min/1.73 sqM) Est GFR (CKD-EPI)NonAf (>60 ml/min/1.73 sqM) Glucose (74-99) mg/dL POC Glucose (mg/dL) (70-110) mg/dL POC Glu Shoe Stitcher Odd ID Calcium (8.4-10.2) mg/dL Total Bilirubin (0.2-1.3) mg/dL AST (14-36) U/L ALT (4-34) U/L Alkaline Phosphatase (38-126) U/L Ammonia <9 (<30) umol/L Troponin I <0.012 (0.000-0.034) ng/mL Total Protein (6.3-8.2) g/dL Albumin (3.5-5.0) g/dL Urine Color Light Yellow Urine Appearance Clear (Clear) Urine pH 6.5 (5.0-8.0) Ur Specific [place] 1.019 (1.001-1.035) Urine Protein Negative (Negative) Urine Glucose (UA) Negative (Negative) Urine Ketones Negative (Negative) Urine Blood Negative (Negative) Urine Nitrite Negative (Negative) Urine Bilirubin Negative (Negative) Urine Urobilinogen <2.0 (<2.0) mg/dL Ur Leukocyte Esterase Large H (Negative) Urine RBC 1 (0-5) /hpf Urine WBC 15 H (0-5) /hpf Ur Squamous Epith Cells <1 (0-4) /hpf Urine Bacteria Rare H (None) /hpf Urine Mucus Rare H (None) /hpf Urine Opiates Screen Not Detected (NotDetected) Ur Oxycodone Screen Not Detected (NotDetected) Urine Methadone Screen Not Detected (NotDetected) Ur Propoxyphene Screen Not Detected (NotDetected) Ur Barbiturates Screen Not Detected (NotDetected) U Tricyclic Antidepress Not Detected (NotDetected) Ur Phencyclidine Scrn Not Detected (NotDetected) Ur Amphetamines Screen Not Detected (NotDetected) U Methamphetamines Scrn Not Detected (NotDetected) U Benzodiazepines Scrn Detected H (NotDetected) Urine Cocaine Screen Not Detected (NotDetected) U Marijuana (THC) Screen Not Detected (NotDetected) Serum Alcohol mg/dL 10/14/22 Range/Units 22:00 WBC (3.8-10.6) k/uL RBC (3.80-5.40) m/uL Hgb (11.4-16.0) gm/dL Hct (34.0-46.0) % MCV (80.0-100.0) fL MCH (25.0-35.0) pg MCHC (31.0-37.0) g/dL RDW (11.5-15.5) % Plt Count (150-450) k/uL MPV Neutrophils % % Lymphocytes % % Monocytes % % Eosinophils % % Basophils % % Neutrophils # (1.3-7.7) k/uL Lymphocytes # (1.0-4.8) k/uL Monocytes # (0-1.0) k/uL Eosinophils # (0-0.7) k/uL Basophils # (0-0.2) k/uL PT (9.0-12.0) sec INR (<1.2) APTT (22.0-30.0) sec Sodium (137-145) mmol/L Potassium (3.5-5.1) mmol/L Chloride (98-107) mmol/L Carbon Dioxide (22-30) mmol/L Anion Gap mmol/L BUN (7-17) mg/dL Creatinine (0.52-1.04) mg/dL Est GFR (CKD-EPI)AfAm (>60 ml/min/1.73 sqM) Est GFR (CKD-EPI)NonAf (>60 ml/min/1.73 sqM) Glucose (74-99) mg/dL POC Glucose (mg/dL) 257 H (70-110) mg/dL POC Glu Shoe Stitcher Odd ID Tess Perez Calcium (8.4-10.2) mg/dL Total Bilirubin (0.2-1.3) mg/dL AST (14-36) U/L ALT (4-34) U/L Alkaline Phosphatase (38-126) U/L Ammonia (<30) umol/L Troponin I (0.000-0.034) ng/mL Total Protein (6.3-8.2) g/dL Albumin (3.5-5.0) g/dL Urine Color Urine Appearance (Clear) Urine pH (5.0-8.0) Ur Specific [place] (1.001-1.035) Urine Protein (Negative) Urine Glucose (UA) (Negative) Urine Ketones (Negative) Urine Blood (Negative) Urine Nitrite (Negative) Urine Bilirubin (Negative) Urine Urobilinogen (<2.0) mg/dL Ur Leukocyte Esterase (Negative) Urine RBC (0-5) /hpf Urine WBC (0-5) /hpf Ur Squamous Epith Cells (0-4) /hpf Urine Bacteria (None) /hpf Urine Mucus (None) /hpf Urine Opiates Screen (NotDetected) Ur Oxycodone Screen (NotDetected) Urine Methadone Screen (NotDetected) Ur Propoxyphene Screen (NotDetected) Ur Barbiturates Screen (NotDetected) U Tricyclic Antidepress (NotDetected) Ur Phencyclidine Scrn (NotDetected) Ur Amphetamines Screen (NotDetected) U Methamphetamines Scrn (NotDetected) U Benzodiazepines Scrn (NotDetected) Urine Cocaine Screen (NotDetected) U Marijuana (THC) Screen (NotDetected) Serum Alcohol mg/dL Disposition <Bong Ferrari - Last Filed: 10/14/22 15:47> Is patient prescribed a controlled substance at d/c from ED?: No Time of Disposition: 06:45 <Norberto Khoury - Last Filed: 10/15/22 06:45> Clinical Impression: Altered mental status, Schizoaffective disorder, Weakness, UTI (urinary tract infection), Leukocytosis Disposition: ADMITTED IP TO THIS HOSP Condition: Fair
[2022-10-14 15:52] LABS: Basophils % (A) 0 %; Eosinophils % (A) 0 %; HCT 38.8 % (34.0-46.0); HGB 13.3 gm/dL (11.4-16.0); Lymphocytes # (A) 1.6 k/uL (1.0-4.8); Lymphocytes % (A) 9 %; MCH 27.9 pg (25.0-35.0); MCHC 34.2 g/dL (31.0-37.0); MCV 81.7 fL (80.0-100.0); Mean Platelet Volume 8.1; Monocytes # (A) 0.5 k/uL (0-1.0); Monocytes % (A) 3 %; Neutrophils # (A) 14.9 k/uL (1.3-7.7); Neutrophils % (A) 87 %; Platelet Count 283 k/uL (150-450); RBC 4.75 m/uL (3.80-5.40); RDW 13.7 % (11.5-15.5); WBC 17.2 k/uL (3.8-10.6)
--- NOTE | 2022-10-14 16:10 | CT ---
EXAMINATION TYPE: CT brain wo con DATE OF EXAM: 10/14/2022 HISTORY: AMS. Hx seizures, memory impairment. C/o slurred speech CT DLP: 1173.4 mGycm. Automated Exposure Control for Dose Reduction was Utilized. TECHNIQUE: CT scan of the head is performed without contrast. COMPARISON: CT brain December 22, 2020. FINDINGS: There is no acute intracranial hemorrhage or midline shift identified. There is mild-to-m oderate diffuse ventricular and sulcal prominence consistent with diffuse age-related cerebral atroph y. Most prominent sulcal effacement remains present over the bilateral frontal lobes. Diego-white vesna er differentiation is maintained. The globes are intact and the visualized sinuses are clear. Nasal septum remains deviated to right of midline. IMPRESSION: No acute intracranial hemorrhage or midline shift. There is [id number] diffuse ce rebral atrophy greatest over the bilateral frontal lobes redemonstrated. No significant change from prior.
[2022-10-14 16:14] LABS: ALT 39 U/L (4-34); AST 27 U/L (14-36); African American GFR (CKD) 75 (>60 ml/min/1.73 sqM); Albumin 4.1 g/dL (3.5-5.0); Alcohol <10 mg/dL; Alkaline Phosphatase 92 U/L (38-126); Anion Gap 10 mmol/L; Blood Urea Nitrogen 33 mg/dL (7-17); Calcium 9.6 mg/dL (8.4-10.2); Carbon Dioxide 23 mmol/L (22-30); Chloride 104 mmol/L (98-107); Glucose 186 mg/dL (74-99); Non-African American GFR(CKD) 65 (>60 ml/min/1.73 sqM); Potassium 4.6 mmol/L (3.5-5.1); Sodium 137 mmol/L (137-145); Total Bilirubin 0.2 mg/dL (0.2-1.3); Total Protein 6.3 g/dL (6.3-8.2)
--- NOTE | 2022-10-14 16:15 | XR ---
EXAMINATION TYPE: XR chest 2V DATE OF EXAM: 10/14/2022 COMPARISON: Chest x-ray January 23, 2021 HISTORY: Altered mental status and weakness. TECHNIQUE: Frontal and lateral views of the chest are obtained. FINDINGS: There is chronic parenchymal changes with retrocardiac opacity suspicious for moderate-siz ed hiatal hernia. No pleural effusion or pneumothorax seen bilaterally. The cardiac silhouette size i s stable and upper limits of normal. The osseous structures are intact. IMPRESSION: Chronic changes without definitive new acute pulmonary process.
[2022-10-14 16:19] LABS: INR 0.9 (<1.2); Prothrombin Time 9.8 sec (9.0-12.0)
[2022-10-14 16:35] LABS: Partial Thromboplastin Time 20.5 sec (22.0-30.0)
[2022-10-14 22:01] LABS: Glucose,Whole Blood 257 mg/dL (70-110)
[2022-10-14 22:10] LABS: Appearance,Urine Clear (Clear); Bacteria,Urine Rare /hpf; Bilirubin,Urine Negative (Negative); Blood,Urine Negative (Negative); Color,Urine Light Yellow; Glucose,Urine (UA) Negative (Negative); Ketones,Urine Negative (Negative); Leukocyte Esterase,Urine Large (Negative); Mucus,Urine Rare /hpf; Nitrite,Urine Negative (Negative); PH, Urine 6.5 (5.0-8.0); Protein,Urine Negative (Negative); RBC,Urine 1 /hpf (0-5); Specific Gravity,Urine 1.019 (1.001-1.035); Squamous Epithelial Cell,Urine <1 /hpf (0-4); Urobilinogen,Urine <2.0 mg/dL (<2.0); WBC,Urine 15 /hpf (0-5)
[2022-10-14 22:25] LABS: Amphetamine Screen,Urine Not Detected (NotDetected); Barbiturate Screen,Urine Not Detected (NotDetected); Benzodiazepines Screen,Urine Detected (NotDetected); Cocaine Screen,Urine Not Detected (NotDetected); Methadone Screen, Urine Not Detected (NotDetected); Opiate Screen,Urine Not Detected (NotDetected); Oxycodone Screen, Urine Not Detected (NotDetected); Phencyclidine Screen,Urine Not Detected (NotDetected); Tricyclic Antidepressant,Urine Not Detected (NotDetected); Urn Cannabinoid Scrn Not Detected (NotDetected)
[2022-10-14] MEDS ORDERED: NALOXONE 0.4 MG/ML 1 ML VIAL IV PRN (23:11)
[2022-10-14] MEDS ORDERED: ACETAMINOPHEN TAB 325 MG TAB PO PRN (23:11)
[2022-10-14] MEDS: SODIUM CHLORIDE 0.9% 1,000 ML IV SCH (23:17)
[2022-10-15] MEDS ORDERED: DEXTROSE 50% SYRINGE 50 ML IVP PRN ×2 (11:26)
--- NOTE | 2022-10-15 11:30 | P.HPIM ---
History of Present Illness H&P Date: 10/15/22 Chief Complaint: AMS Patient is a 67-year-old female with history of schizophrenia, anxiety, diabetes, hypothyroidism, hypertension, dyslipidemia presenting with altered mentation. Patient is a poor historian. Per chart review, patient's visiting caregiver noted that she was having slurred speech with, and decided to see her in person. She then decided to call EMS for altered mentation. Patient was also having falls. Patient currently denies any chest pain, shortness of breath, cough, lightheadedness, palpitations, abdominal pain, diarrhea, consti pation, or urinary complaints. In the ED, vital signs were within normal limits. Laboratory workup showed leukocytosis 17.2, elevated BUN at 33, positive for benzodiazepines, UA showed large leukocyte esterase, negative nitrites. She was given IV ceftriaxone in the ED, IV fluids, admitted for altered mentation and UTI. Patient seen and examined at bedside. Pertinent positives and negatives as discussed in HPI, a complete review of systems was performed and all other systems are negative. Vital signs reviewed General: nontoxic, no distress, appears at stated age Derm: warm, dry Head: atraumatic, normocephalic, symmetric Eyes: EOMI, no lid lag, anicteric sclera, pupils equal round reactive to light ENT: Nose and ears atraumatic Neck: No thyromegaly, supple Mouth: no lip lesion, mucus membranes moist Cardiovascular: S1S2 reg, no murmur, no edema Lungs: clear to auscultation bilateral, no rhonchi, no rales, no wheeze, no accessory muscle use Abdominal: soft, nontender to palpation, no guarding, no appreciable organomegaly Ext: no gross muscle atrophy, muscle strength muscle strength 5 out of 5 in all 4 extremities, no contractures Neuro: CN II-XII grossly intact Psych: Alert, oriented, appropriate affect Assessment/Plan: Acute metabolic/toxic/infectious encephalopathy Leukocytosis Urinary tract infection Elevated BUN Anxiety Schizoaffective disorder - Currently being treated with IV ceftriaxone - Patient also on lithium, lithium levels pending - Continue Lamictal and paroxetine, lamictal levels pending - Urine tox positive for benzodiazepines, patient on Ativan scheduled at home, monitor for signs of withdrawal - Oxybutynin and trihexyphenidyl holding due to anticholinergic effects - Continue IV fluids - neurology consulted Hypothyroidism - continue levothyroxine, TSH pending Diabetes - hold metformin, sliding scale insulin Dyslipidemia -continue statin Hypertension - continue atenolol The patient is admitted with an anticipated less than 2 midnight stay for evaluation of encephalopathy. Surrogate decision-maker: Daughter CODE STATUS: Full code DVT prophylaxis: Lovenox Anticipated discharge date: 10/[address]: Home A total of 55 minutes was spent on the care of this complex patient more than 50% of the time was spent in counseling and care coordination. Past Medical History Past Medical History: Chest Pain / Angina, Diabetes Mellitus, Eye Disorder, GERD/Reflux, Hyperlipidemia, Hypertension, Memory Impairment, Osteoarthritis (OA), Seizure Disorder, Sleep Apnea/CPAP/BIPAP, Thyroid Disorder Additional Past Medical History / Comment(s): NIDDM type II, neuropathy bilateral legs/feet, BETINA/does not use device, short term memory issues, past seizure many years ago associated with a medication, hypothyroid, sinus issues, varicose vein, stress incontinence/urgency, frequent UTIs, RLS, lightheaded/dizzy when rising at times, bilateral eye macular degeneration, hypoothyroid. Last Myocardial Infarction Date:: 2016 History of Any Multi-Drug Resistant Organisms: None Reported Past Surgical History: Section Additional Past Surgical History / Comment(s): D&C with hysteroscopy/colposcopy, surgery for deviated septum Past Anesthesia/Blood Transfusion Reactions: Motion Sickness Past Psychological History: Anxiety, Bipolar, Depression, Schizoaffective D isorder Additional Psychological History / Comment(s): Pt resides in her own home. She goes to [facility] during the daytime. Her hernán checks on her twice a day. Pt uses a cane or walker. [facility] manages her medications. Smoking Status: Never smoker Past Alcohol Use History: None Reported Past Drug Use History: None Reported - Past Family History Father Family Medical History: CVA/TIA Additional Family Medical History / Comment(s): SMOKED AND ABUSED ETOH- AGE 78- FROM STROKE Mother Additional Family Medical History / Comment(s): CRONIC BRONCHITIS.REMOVED PART OF ONE LUNG d/t the bronchitis infection Medications and Allergies Home Medications Medication Instructions Recorded Confirmed Type Levothyroxine Sodium [Synthroid] 50 mcg PO DAILY 06/01/15 10/14/22 History Meloxicam [Mobic] 7.5 mg PO DAILY 01/10/17 10/14/22 History metFORMIN HCL [Glucophage] 500 mg PO BID 12/15/17 10/14/22 History Atorvastatin [Lipitor] 20 mg PO HS 03/07/18 10/14/22 History rOPINIRole HCL [Requip] 0.5 mg PO HS 06/09/18 10/14/22 History lamoTRIgine [LaMICtal] 200 mg PO DAILY 04/06/19 10/14/22 History [place] Carbonate 600 mg PO DAILY 12/22/20 10/14/22 History Oxybutynin Chloride [Ditropan] 5 mg PO BID 12/22/20 10/14/22 History atenoloL 25 mg PO DAILY 12/22/20 10/14/22 History Omeprazole 20 mg PO DAILY 01/23/21 10/14/22 History Ascorbic Acid [Vitamin C] 500 mg PO DAILY 10/14/22 10/14/22 History Cholecalciferol [Vitamin D3 (25 50 mcg PO DAILY 10/14/22 10/14/22 History Mcg = 1000 Iu)] LORazepam [Ativan] 0.5 mg PO QID 10/14/22 10/14/22 History Levocetirizine Dihydrochloride 5 mg PO DAILY 10/14/22 10/14/22 History PARoxetine [Paxil] 10 mg PO QID 10/14/22 10/14/22 History Trihexyphenidyl [Artane] 2 mg PO QID 10/14/22 10/14/22 History Allergies Allergy/AdvReac Type Severity Reaction Status Date / Time amoxicillin Allergy Rash/Hives Verified 10/14/22 16:39 codeine Allergy Unknown Verified 10/14/22 16:39 Sulfa (Sulfonamide Allergy Unknown Verified 10/14/22 16:39 Antibiotics) sulfamethoxazole Allergy Unknown Verified 10/14/22 16:39 [From Bactrim] thioridazine [From Mellaril] Allergy Unknown Verified 10/14/22 16:39 trimethoprim [From Bactrim] Allergy Unknown Verified 10/14/22 16:39 Physical Exam Vitals: Vital Signs Temp Pulse Resp BP Pulse Ox 10/15/22 08:00 16 10/15/22 06:28 98.7 F 64 16 142/48 97 10/15/22 02:20 98.6 F 66 16 147/88 98 10/14/22 22:00 98.1 F 72 16 147/82 97 10/14/22 15:00 20 151/79 96 10/14/22 14:46 98.2 F 80 17 151/79 97 Intake and Output 10/14/22 10/15/22 10/15/22 22:59 06:59 14:59 Other: Voiding Method Toilet Weight 99.337 kg Results CBC & Chem 7: 10/14/22 15:30 10/14/22 15:30 Labs: Abnormal Lab Results - Last 24 Hours (Table) 10/14/22 10/14/22 10/14/22 Range/Units 15:30 15:30 15:30 WBC 17.2 H (3.8-10.6) k/uL Neutrophils # 14.9 H (1.3-7.7) k/uL APTT 20.5 L (22.0-30.0) sec BUN 33 H (7-17) mg/dL Glucose 186 H (74-99) mg/dL POC Glucose (mg/dL) (70-110) mg/dL ALT 39 H (4-34) U/L Ur Leukocyte Esterase (Negative) Urine WBC (0-5) /hpf Urine Bacteria (None) /hpf Urine Mucus (None) /hpf U Benzodiazepines Scrn (NotDetected) 10/14/22 10/14/22 Range/Units 21:53 22:00 WBC (3.8-10.6) k/uL Neutrophils # (1.3-7.7) k/uL APTT (22.0-30.0) sec BUN (7-17) mg/dL Glucose (74-99) mg/dL POC Glucose (mg/dL) 257 H (70-110) mg/dL ALT (4-34) U/L Ur Leukocyte Esterase Large H (Negative) Urine WBC 15 H (0-5) /hpf Urine Bacteria Rare H (None) /hpf Urine Mucus Rare H (None) /hpf U Benzodiazepines Scrn Detected H (NotDetected) Microbiology - Last 24 Hours (Table) 10/14/22 21:53 Urine Culture - Preliminary Urine,Voided Thrombosis Risk Factor Assmnt - Choose All That Apply Any of the Below Risk Factors Present?: Yes Each Factor Represents 1 point: Obesity (BMI >25) Each Risk Factor Represents 2 Points: Age 61-74 years Other congenital or acquired thrombophilia - If yes, enter type in comment: No Thrombosis Risk Factor Assessment Total Risk Factor Score: 3 Thrombosis Risk Factor Assessment Level: Moderate Risk
[2022-10-15 11:36] LABS: Lithium 0.9 mmol/L
--- NOTE | 2022-10-15 11:40 | P.CNNES ---
History of Present Illness Consult date: 10/15/22 Requesting physician: Bong Ferrari Reason for Consult: altered mental status History of Present Illness: This is a 67-year-old woman with history of seizures and significant psych history who presented emergency department because of altered mental status. Some of the history is obtained from medical records since patient is a poor historian. It seems the patient sounded slurred to the patient's caregiver yesterday morning. As a result she called EMS and the patient was brought to the hospital via ambulance for further evaluation. Patient had a fall recently and it seems that the patient had a fall about 2 days ago. It seemed to the patient had history of seizures and was felt to the patient at seizure was due to medication she was on 20 years ago and denies any further seizures She is currently on Lamictal 200 mg daily and [place] for mood by her psychiatrist. She feels her slurring of speech is likely new. Some of the workup during his hospital visit consisted of: Patient is afebrile White blood cells 17.2 and slightly neutrophilic Glucose is 186 AST is 27 ALTs 39 BUN is 33 otherwise rest of the chemistry panel is unremarkable besides the glucose was 186 on presentation and was 257 Urinalysis seems possible suggestive of urinary tract infection Urine drug seen is positive for benzo. Serum alcohol was less than 10 CT of the head is reported as no acute intracranial hemorrhage or midline shift. There is mild to moderate diffuse cerebral atrophy greatest over the bilateral frontal lobe redemonstrated. No significant change from prior. I personally reviewed the CT of the head and I agree with the report. Review of Systems Review of system: The 12 point system was reviewed and apparent positive and negative per HPI. Past Medical History Past Medical History: Chest Pain / Angina, Diabetes Mellitus, Eye Disorder, GERD/Reflux, Hyperlipidemia, Hypertension, Memory Impairment, Osteoarthritis (OA ), Seizure Disorder, Sleep Apnea/CPAP/BIPAP, Thyroid Disorder Additional Past Medical History / Comment(s): NIDDM type II, neuropathy bilateral legs/feet, BETINA/does not use device, short term memory issues, past seizure many years ago associated with a medication, hypothyroid, sinus issues, varicose vein, stress incontinence/urgency, frequent UTIs, RLS, lightheaded/dizzy when rising at times, bilateral eye macular degeneration, hypoothyroid. Last Myocardial Infarction Date:: 2016 History of Any Multi-Drug Resistant Organisms: None Reported Past Surgical History: Section Additional Past Surgical History / Comment(s): D&C with hysteroscopy/colposcopy, surgery for deviated septum Past Anesthesia/Blood Transfusion Reactions: Motion Sickness Past Psychological History: Anxiety, Bipolar, Depression, Schizoaffective Disorder Additional Psychological History / Comment(s): Pt resides in her own home. She goes to [facility] [employer] during the daytime. Her hernán checks on her twice a day. Pt uses a cane or walker. [facility] manages her medications. Smoking Status: Never smoker Past Alcohol Use History: None Reported Past Drug Use History: None Reported - Past Family History Father Family Medical History: CVA/TIA Additional Family Medical History / Comment(s): SMOKED AND ABUSED ETOH- AGE 78- FROM STROKE Mother Additional Family Medical History / Comment(s): CRONIC BRONCHITIS.REMOVED PART OF ONE LUNG d/t the bronchitis infection Medications and Allergies Home Medications Medication Instructions Recorded Confirmed Type Levothyroxine Sodium [Synthroid] 50 mcg PO DAILY 06/01/15 10/14/22 History Meloxicam [Mobic] 7.5 mg PO DAILY 01/10/17 10/14/22 History metFORMIN HCL [Glucophage] 500 mg PO BID 12/15/17 10/14/22 History Atorvastatin [Lipitor] 20 mg PO HS 03/07/18 10/14/22 History rOPINIRole HCL [Requip] 0.5 mg PO HS 06/09/18 10/14/22 History lamoTRIgine [LaMICtal] 200 mg PO DAILY 04/06/19 10/14/22 History [place] Carbonate 600 mg PO DAILY 12/22/20 10/14/22 History Oxybutynin Chloride [Ditropan] 5 mg PO BID 12/22/20 10/14/22 History atenoloL 25 mg PO DAILY 12/22/20 10/14/22 History Omeprazole 20 mg PO DAILY 01/23/21 10/14/22 History Ascorbic Acid [Vitamin C] 500 mg PO DAILY 10/14/22 10/14/22 History Cholecalciferol [Vitamin D3 (25 50 mcg PO DAILY 10/14/22 10/14/22 History Mcg = 1000 Iu)] LORazepam [Ativan] 0.5 mg PO QID 10/14/22 10/14/22 History Levocetirizine Dihydrochloride 5 mg PO DAILY 10/14/22 10/14/22 History PARoxetine [Paxil] 10 mg PO QID 10/14/22 10/14/22 History Trihexyphenidyl [Artane] 2 mg PO QID 10/14/22 10/14/22 History Allergies Allergy/AdvReac Type Severity Reaction Status Date / Time amoxicillin Allergy Rash/Hives Verified 10/14/22 16:39 codeine Allergy Unknown Verified 10/14/22 16:39 Sulfa (Sulfonamide Allergy Unknown Verified 10/14/22 16:39 Antibiotics) sulfamethoxazole Allergy Unknown Verified 10/14/22 16:39 [From Bactrim] thioridazine [From Mellaril] Allergy Unknown Verified 10/14/22 16:39 trimethoprim [From Bactrim] Allergy Unknown Verified 10/14/22 16:39 Physical Examination - Vital Signs Vital Signs: Vital Signs Temp Pulse Resp BP Pulse Ox 10/15/22 08:00 16 10/15/22 06:28 98.7 F 64 16 142/48 97 10/15/22 02:20 98.6 F 66 16 147/88 98 10/14/22 22:00 98.1 F 72 16 147/82 97 10/14/22 15:00 20 151/79 96 10/14/22 14:46 98.2 F 80 17 151/79 97 Intake and Output 10/14/22 10/15/22 10/15/22 22:59 06:59 14:59 Other: Voiding Method Toilet GENERAL: The patient is lying in bed and is not in acute distress. CHEST: The heart rate is regular rate rhythm. No murmurs to auscultation. LUNG: Clear to auscultation bilaterally no wheezing noted throughout. Not labored breathing. ABDOMEN/GI: Bowel sounds present in all 4 quadrants. No tenderness to palpation throughout. NEUROLOGICAL: Higher mental function: The patient is awake, alert, oriented to self. Stated current month is September and could not tell me year. She stated she is at pulmonary facility. Patient is following simple commands. She is slow responding to questions. No aphasia and no neglect. Cranial nerves: The pupils are round, equal and reactive to light. Visual hernandez are full to confrontation throughout. Extraocular movement is intact no nystagmus is noted. Facial sensation is normal to touch throughout. The facial strength is normal throughout. Hearing is mildly decreased bilaterally to hand rub. Tongue is midline and moved [id number] without any difficulty. Moderate dysarthria is noted. Shoulder shrug is normal bilaterally. Motor: The strength is 5 over 5 throughout. Normal tone and bulk. Cerebellum: Normal finger to nose bilaterally. Sensation: Sensation is normal to touch throughout. Reflexes (right/left): 2+ throughout. Plantars are mute bilaterally. Results - Laboratory Findings CBC and BMP: 10/14/22 15:30 10/14/22 15:30 Abnormal Lab Findings: Abnormal Labs 10/14/22 10/14/22 10/14/22 15:30 15:30 15:30 WBC 17.2 H Neutrophils # 14.9 H APTT 20.5 L BUN 33 H Glucose 186 H POC Glucose (mg/dL) ALT 39 H Ur Leukocyte Esterase Urine WBC Urine Bacteria Urine Mucus U Benzodiazepines Scrn 10/14/22 10/14/22 21:53 22:00 WBC Neutrophils # APTT BUN Glucose POC Glucose (mg/dL) 257 H ALT Ur Leukocyte Esterase Large H Urine WBC 15 H Urine Bacteria Rare H Urine Mucus Rare H U Benzodiazepines Scrn Detected H Assessment and Plan Assessment: Acute dysarthria: Rule out acute ischemic stroke Altered mental status seems due to possibly underlying acute urinary tract infection. Rule out breakthrough seizure Recent fall unknown exact etiology Acute urinary tract infection History of seizure about 20 years ago and was told due to medication effect Diabetes mellitus Hypertension Hypothyroidism Mood disorder and is on [place] and Lamictal Plan: I ordered a routine EEG Ordered MRI Brain because of acute dysarthria: Rule out acute ischemic stroke and if positive will get rest of stroke work-up. Ordered TSH, B12, folate, ammonia level, hemoglobin A1c. Ordered orthostatic vitals. Ordered [place] level and Lamictal level Q4 hour neuro checks Physical therapy is consulted. Will defer the rest of medical management to primary team. Thank you for the consultation Time with Patient: Greater than 30
[2022-10-15 12:05] LABS: Glucose,Whole Blood 126 mg/dL (70-110)
[2022-10-15] MEDS: INSULIN ASPART (NovoLOG) 100 UNIT/ML VIAL SQ SCH ×3 (12:06→21:12)
[2022-10-15] MEDS: PARoxetine 10 MG TAB PO SCH ×3 (12:08→21:17)
[2022-10-15] MEDS: SODIUM CHLORIDE 0.9% 1,000 ML IV SCH (12:08)
[2022-10-15 16:33] LABS: Glucose,Whole Blood 154 mg/dL (70-110)
--- NOTE | 2022-10-15 20:38 | EEG ---
ELECTROENCEPHALOGRAM REPORT CLINICAL HISTORY: This is a 67-year-old woman who has confusion and reported remote history of seizure. The video EEG is obtained to evaluate for seizure epileptiform activity. RELEVANT MEDICATION: Lamictal. EEG TYPE: A routine 21-channel EEG is performed with video using the 10/20 electrode placement system. DESCRIPTION: Wakefulness is obtained. During awake state, the posterior-dominant rhythm consists of [id number]-ellloyjk voltage of 6.5 to 7.5 hertz activity that is well modulated, well sustained. There is no physiological stage 2 sleep architecture. There is no focal slowing. Interictal and ictal is none. ACTIVATION PROCEDURE: Photic stimulation did not evoke a posterior driving response. There is no abnormality during the photic stimulation. Hyperventilation is not performed. CLINICAL INTERPRETATION: The background slowing is suggestive of mild encephalopathy. There is no focal slowing, epileptiform discharge, or seizure on the EEG. A normal routine EEG does not rule out underlying epilepsy. Clinical correlation is recommended [facility]ILL / DANIELLE: [id number] / [facility] CENTERPrashant
[2022-10-15] MEDS: ATORVASTATIN 20 MG TAB PO SCH (21:15)
[2022-10-15 21:19] LABS: Glucose,Whole Blood 150 mg/dL (70-110)
[2022-10-16] MEDS: SODIUM CHLORIDE 0.9% 1,000 ML IV SCH ×2 (00:27→16:25)
[2022-10-16 06:46] LABS: Glucose,Whole Blood 162 mg/dL (70-110)
[2022-10-16] MEDS: LEVOTHYROXINE 50 MCG TAB PO SCH (06:46)
[2022-10-16] MEDS: INSULIN ASPART (NovoLOG) 100 UNIT/ML VIAL SQ SCH ×4 (06:47→20:54)
[2022-10-16] MEDS: PANTOPRAZOLE 40 MG TABLET PO SCH (06:47)
[2022-10-16 08:53] LABS: Basophils # (A) 0.02 X 10*3/uL (0.00-0.10); Basophils % (A) 0.2 %; Eosinophils # (A) 0 X 10*3/uL (0.04-0.35); Eosinophils % (A) 0 %; HCT 40.1 % (37.2-46.3); HGB 12.6 g/dL (12.0-15.0); Immature Grans, Automated 0.8 %; Lymphocytes # (A) 1.78 X 10*3/uL (0.90-5.00); Lymphocytes % (A) 13.6 %; MCH 26.8 pg (27.0-32.0); MCHC 31.4 g/dL (32.0-37.0); MCV 85.3 fL (80.0-97.0); Monocytes # (A) 0.61 X 10*3/uL (0.20-1.00); Monocytes % (A) 4.6 %; NRBC Per 100 WBC 0 /100 WBCS (0.0-0.0); Neutrophils % (A) 80.8 %; Platelet Count 247 X 10*3/uL (140-440); RDW 13.6 % (11.5-14.5); WBC 13.12 X 10*3/uL (4.50-10.00)
[2022-10-16] MEDS: ASCORBIC ACID 500 MG TAB PO SCH (08:53)
[2022-10-16] MEDS: CHOLECALCIFEROL 25 MCG (1000 IU) TABLET PO SCH (08:53)
[2022-10-16] MEDS: atenoloL 25 MG TAB PO SCH (08:53)
[2022-10-16] MEDS: lamoTRIgine 100 MG TAB PO SCH (08:53)
[2022-10-16] MEDS: PARoxetine 10 MG TAB PO SCH ×4 (08:54→20:54)
--- NOTE | 2022-10-16 11:31 | P.PN ---
Subjective Progress Note Date: 10/16/22 Principal diagnosis: AMS Hospital Course: Patient is a 67-year-old female with history of schizophrenia, anxiety, diabetes, hypothyroidism, hypertension, dyslipidemia presenting with altered mentation. Patient is a poor historian. Per chart review, patient's visiting caregiver noted that she was having slurred speech with, and decided to see her in person. She then decided to call EMS for altered mentation. Patient was also having falls. In the ED, vital signs were within normal limits. Laboratory workup showed leukocytosis 17.2, elevated BUN at 33, positive for benzodiazepines, UA showed large leukocyte esterase, negative nitrites. She was given IV ceftriaxone in the ED. Also given IV fluids, admitted for altered mentation and UTI. Urine culture showing no growth. Antibiotics discontinued. Patient also on multiple psychotropic medications, possibly encephalopathy related to medication use. Subjective: Patient seen and examined at bedside. No acute events overnight. She denies any abdominal pain, chest pain, shortness of breath, nausea, vomiting, diarrhea, constipation, or urinary complaints. Pertinent positives and negatives as discussed above, a complete review of systems was performed and all other systems are negative. Vitals Signs Reviewed. General: nontoxic, no distress, appears at stated age Derm: warm, dry Head: atraumatic, normocephalic, symmetric Eyes: EOMI, no lid lag, anicteric sclera, pupils equal round reactive to light ENT: Nose and ears atraumatic Neck: No thyromegaly, supple Mouth: no lip lesion, mucus membranes moist Cardiovascular: S1S2 reg, no murmur, no edema Lungs: clear to auscultation bilateral, no rhonchi, no rales, no wheeze, no accessory muscle use Abdominal: soft, nontender to palpation, no guarding, no appreciable organomegaly Ext: no gross muscle atrophy, muscle strength muscle strength 5 out of 5 in all 4 extremities, no contractures Neuro: CN II-XII grossly intact Psych: Alert, oriented, appropriate affect Assessment and Plan: Acute metabolic/toxic/infectious encephalopathy Leukocytosis - likely reactive, improving Sterile pyuria Elevated BUN Anxiety Schizoaffective disorder - IV antibiotics discontinued - Patient also on lithium, lithium levels therapeutic - Continue Lamictal and paroxetine, lamictal levels pending - Urine tox positive for benzodiazepines, patient on Ativan scheduled at home, monitor for signs of withdrawal - Oxybutynin and trihexyphenidyl holding due to anticholinergic effects - Continue IV fluids - neurology consulted - Psychiatry consult with regards to medication reconciliation Hypothyroidism - continue levothyroxine, TSH normal Diabetes - hold metformin, sliding scale insulin Dyslipidemia -continue statin Hypertension - continue atenolol DVT ppx: Lovenox Code status: Full code Anticipated discharge place: Pending clinical course Anticipated discharge time: Pending clinical course Objective - Vital Signs Vital signs: Vital Signs Temp 98.2 F 10/16/22 07:55 Pulse 65 10/16/22 07:55 Resp 16 10/16/22 07:55 BP 158/89 10/16/22 07:55 Pulse Ox 98 10/16/22 07:55 FiO2 Intake & Output 10/15/22 10/16/22 10/16/22 18:59 06:59 18:59 Intake Total 100 Balance 100 Weight 99.337 kg Intake: Oral 100 Other: Voiding Method Toilet Toilet # Voids 1 1 - Labs CBC & Chem 7: 10/16/22 05:30 10/14/22 15:30 Labs: Abnormal Lab Results - Last 24 Hours (Table) 10/15/22 10/15/22 10/15/22 Range/Units 10:57 12:03 16:32 WBC (4.50-10.00) X 10*3/uL MCH (27.0-32.0) pg MCHC (32.0-37.0) g/dL Immature Gran # (0.00-0.04) X 10*3/uL Neutrophils # (1.80-7.70) X 10*3/uL Eosinophils # (0.04-0.35) X 10*3/uL POC Glucose (mg/dL) 126 H 154 H (70-110) mg/dL Hemoglobin A1c 6.5 H (0.0-6.0) % 10/15/22 10/16/22 10/16/22 Range/Units 21:10 05:30 06:44 WBC 13.12 H (4.50-10.00) X 10*3/uL MCH 26.8 L (27.0-32.0) pg MCHC 31.4 L (32.0-37.0) g/dL Immature Gran # 0.11 H (0.00-0.04) X 10*3/uL Neutrophils # 10.60 H (1.80-7.70) X 10*3/uL Eosinophils # 0 L (0.04-0.35) X 10*3/uL POC Glucose (mg/dL) 150 H 162 H (70-110) mg/dL Hemoglobin A1c (0.0-6.0) % Microbiology - Last 24 Hours (Table) 10/14/22 21:53 Urine Culture - Final Urine,Voided
[2022-10-16 12:36] LABS: Glucose,Whole Blood 117 mg/dL (70-110)
--- NOTE | 2022-10-16 13:42 | P.CN ---
Psychiatric Consult - . Consult date: 10/16/22 Consult:: 10/16/22 13:07 IDENTIFYING DATA: This patient is a 67-year-old female who currently lives alone, in the house, has 1 kid. REASON FOR REFERRAL: Psychiatry was consulted for medication adjustments and also encephalopathy. HISTORY OF PRESENT ILLNESS: The patient presented to the hospital on 10/14 by EMS for altered mental status. According to her report patient apparently was exhibiting slurred speech on the phone call and a caregiver noticed and called EMS. The patient was positive for benzodiazepines and her urine drug screen and UTI was also present in her urine analysis. Patient had elevated WBCs. Neurology was consulted and following along. Patient had a computed tomography scan of her head which showed no acute changes, mild to moderate diffuse cerebral atrophy. Patient's lithium level was 0.9 and Lamictal level was 3.5. Patient was admitted for ruling out a CVA and also UTI with encephalopathy. Patient was seen today in her room eating her lunch with her daughter by her side. Patient's daughter was politely asked to allow director underwriter sales to speak with her in private. Patient claims that she does not know the name of the hospital that she is in, she knows her full name and believes that today is the "11th however does not know the month or year. She claims that she is having problems with "thinking". She has word finding difficulty and does not know the timeframe or dates of many of her symptoms. She was fairly vague talking about her medical issues and need for help. She claims that she is feeling frustrated not being able to think clearly. She states that she does have a history of depression and also anxiety which appear to be chronic. She claims that she has been taking her medications except for Artane for several years. She is endorsing some mild thoughts of paranoia towards others. Claims that her sleep has been on and off and somewhat tired during the day. She claims that her appetite is fair. She does state that she experiences auditory hallucinations at time and these are fairly persistent and chronic. At this time patient denies any suicidal or homical ideations, intent or plan. Patient denies any visual hallucinations and denies any paranoia or delusions. Patients admits to using no recreational drugs or cigarettes. PAST PSYCHIATRIC HISTORY: Patient has a a history of schizoaffective disorder, depression and anxiety. Patient is currently on Lamictal, lithium, Paxil, Ativan and claims that she stopped taking Artane about 6 months ago. Patient claims that her last psychiatric hospitalization was in 2018 on the mental health unit. Patient denies any psychiatric outpatient follow-up. Patient denies any history of suicide attempts in the past. Past Medical History: Chest Pain / Angina, Diabetes Mellitus, Eye Disorder, GERD/Reflux, Hyperlipidemia, Hypertension, Memory Impairment, Myocardial Infarction (TN), Osteoarthritis (OA), Seizure Disorder, Sleep Apnea/CPAP/BIPAP, Thyroid Disorder Additional Past Medical History / Comment(s): SINUSITIS. PAST SEIZURE, PT STATED WAS DUE TO MEDICATIONS SHE WAS ON 20 yrs ago. VARICOSE VEINS, NEUROPATHY, has CPAP machine but does not use it. Episodes of lightheadedness and dizziness when rising, X1 yr. Short term memory impairment, cataracts. ALLERGIES: as per EMR. CHEMICAL DEPENDENCY HISTORY: as per HPI. FAMILY PSYCHIATRIC/SUBSTANCE USE HISTORY: denies SOCIAL HISTORY: Patient was born and raised in [facility]. 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 She lives alone, has 1 kid. She completed high school she states. MENTAL STATUS EXAM: General Appearance: Patient appears to be overweight, stated age is alert, pleasant, and tends to be cooperative. Frustrated at times with memory. Patient appears to have fair hygiene and grooming wearing hospital gown with fair eye contact. Behavior: Patient is calmly lying in bed without any agitated behavior. Attempts to cooperate. Speech: Patient's speech is fluent and nonpressured. Mood/Affect: Patient reports their mood is "depressed", affect is congruent and constricted Suicidality/Homicidality: Patient denies having any suicidal or homicidal ideation intent or plan. Perceptions: Patient denies any visual hallucinations and denies any auditory hallucinations Though content/process: There is no evidence of any delusional thought content and thought process is linear and goal-directed. Memory and concentration: AOX1, to name only, poor attention span. Cannot spell "WORLD" backwards. Poor memory recall 0 out of 3 after 5 minutes. Judgment and insight: Chronically limited IMPRESSIONS: Delirium likely secondary to multiple etiologies including infection, medications, possible benzo withdrawal etc. Schizoaffective disorder PLAN: -At this time patient DOES NOT meet criteria for inpatient psychiatric admission. -Delirium precautions recommended with patient including - avoiding use of narcotics and SLEEP SCIENTIST sedatives, limit anticholinergic medications when possible, frequent re-orientation, minimize use of restraints, open window shades during the day and close them at night -Would recommend the following medication changes/additions: We'll restart Ativan however at a lower dose 0.5 mg tid for anxiety to prevent withdrawal. Decrease Paxil to 10 mg tid for depression/anxiety. restart lamictal and lithium at home dose. added zyprexa 2.5 mg qhs for psychosis/sleep. goal will be to reduce overall anticholinergic burden as well as benzos on patient and continue treating underlying medical conditions and infection (UTI) -green chain worker to provide patient with outpatient mental health/psychiatry resources for appropriate follow up upon discharge -Communicated plan to patient's nurse -Will continue to follow along tomorrow -Please contact with any questions. 10/16/22 13:30
[2022-10-16] MEDS: ENOXAPARIN 40 MG/0.4 ML SYRINGE SQ SCH (14:17)
[2022-10-16] MEDS: LITHIUM CARBONATE 300 MG CAP PO SCH (14:17)
--- NOTE | 2022-10-16 16:05 | P.PN ---
Subjective Progress Note Date: 10/16/22 The patient is seen at bedside and per nurse, she is about the same. Objective - Vital Signs Vital signs: Vital Signs Temp 98.2 F 10/16/22 07:55 Pulse 65 10/16/22 07:55 Resp 16 10/16/22 07:55 BP 158/89 10/16/22 07:55 Pulse Ox 98 10/16/22 07:55 FiO2 Intake & Output 10/15/22 10/16/22 10/16/22 18:59 06:59 18:59 Intake Total 100 Balance 100 Weight 99.337 kg Intake: Oral 100 Other: Voiding Method Toilet Toilet # Voids 1 1 1 - Exam GENERAL: The patient is lying in bed and is not in acute distress. NEUROLOGICAL: Higher mental function: The patient is awake, alert, oriented to self. Stated current month is September and could not tell me year. She stated she is at pulmonary facility. Patient is following simple commands. She is slow responding to questions. No aphasia and no neglect. Cranial nerves: The pupils are round, equal and reactive to light. Visual hernandez are full to confrontation throughout. Extraocular movement is intact no nystagmus is noted. Facial sensation is normal to touch throughout. The facial strength is normal throughout. Hearing is mildly decreased bilaterally to hand rub. Tongue is midline and moved [id number] without any difficulty. Moderate dysarthria is noted. Shoulder shrug is normal bilaterally. Motor: The strength is 5 over 5 throughout. Normal tone and bulk. Cerebellum: Normal finger to nose bilaterally. Sensation: Sensation is normal to touch throughout. Reflexes (right/left): 2+ throughout. Plantars are mute bilaterally. Some of the workup during his hospital visit consisted of: Patient is afebrile Serum alcohol was less than 10 [place] is 0.9 Lamotrigine is 3.5 which is a within the therapeutic range and it's low normal area Vitamin B-12 was 420 Ammonia level is less than 9 Urine drug screen is positive for benzos otherwise the rest is not detected. Serum alcohol less than 10 Urinalysis seems possible suggestive of urinary tract infection CT of the head is reported as no acute intracranial hemorrhage or midline shift. There is mild to moderate diffuse cerebral atrophy greatest over the bilateral frontal lobe redemonstrated. No significant change from prior. I personally reviewed the CT of the head and I agree with the report. Routine EEG is normal - Labs CBC & Chem 7: 10/16/22 05:30 10/14/22 15:30 Labs: Abnormal Lab Results - Last 24 Hours (Table) 10/15/22 10/15/22 10/15/22 Range/Units 10:57 16:32 21:10 WBC (4.50-10.00) X 10*3/uL MCH (27.0-32.0) pg MCHC (32.0-37.0) g/dL Immature Gran # (0.00-0.04) X 10*3/uL Neutrophils # (1.80-7.70) X 10*3/uL Eosinophils # (0.04-0.35) X 10*3/uL POC Glucose (mg/dL) 154 H 150 H (70-110) mg/dL Hemoglobin A1c 6.5 H (0.0-6.0) % 10/16/22 10/16/22 10/16/22 Range/Units 05:30 06:44 12:35 WBC 13.12 H (4.50-10.00) X 10*3/uL MCH 26.8 L (27.0-32.0) pg MCHC 31.4 L (32.0-37.0) g/dL Immature Gran # 0.11 H (0.00-0.04) X 10*3/uL Neutrophils # 10.60 H (1.80-7.70) X 10*3/uL Eosinophils # 0 L (0.04-0.35) X 10*3/uL POC Glucose (mg/dL) 162 H 117 H (70-110) mg/dL Hemoglobin A1c (0.0-6.0) % Microbiology - Last 24 Hours (Table) 10/14/22 21:53 Urine Culture - Final Urine,Voided Assessment and Plan Assessment: Acute dysarthria: Rule out acute ischemic stroke Altered mental status seems due to possibly underlying acute urinary tract infection. Rule out psychiatric condition and side-effect of medication. Routine EEG is normal. Recent fall unknown exact etiology Acute urinary tract infection History of seizure about 20 years ago and was told due to medication effect Diabetes mellitus Hypertension Hypothyroidism Mood disorder and is on [place] and Lamictal Plan: Pending MRI Brain because of acute dysarthria: Rule out acute ischemic stroke and if positive will get rest of stroke work-up. Q4 hour neuro checks Physical therapy is consulted. Psychiatry team was consulted by the primary team Will defer the rest of medical management to primary team. The plan was discussed with the patient's primary team as well as the nurse. Dr. Vela will start neurology service tomorrow a.m. followed by Dr. Mitchell this Wednesday a.m. Time with Patient: Less than 30
[2022-10-16] MEDS: LORazepam 0.5 MG TAB PO SCH ×2 (16:28→20:54)
[2022-10-16 17:17] LABS: Glucose,Whole Blood 185 mg/dL (70-110)
[2022-10-16 20:02] LABS: Glucose,Whole Blood 165 mg/dL (70-110)
[2022-10-16] MEDS: ATORVASTATIN 20 MG TAB PO SCH (20:54)
[2022-10-16] MEDS ORDERED: OLANZapine 2.5 MG TAB PO SCH (21:00)
[2022-10-17] MEDS: SODIUM CHLORIDE 0.9% 1,000 ML IV SCH ×2 (04:52→18:31)
[2022-10-17 06:25] LABS: Glucose,Whole Blood 135 mg/dL (70-110)
[2022-10-17] MEDS: INSULIN ASPART (NovoLOG) 100 UNIT/ML VIAL SQ SCH ×4 (06:35→20:20)
[2022-10-17] MEDS: PANTOPRAZOLE 40 MG TABLET PO SCH (06:37)
[2022-10-17] MEDS: LEVOTHYROXINE 50 MCG TAB PO SCH (06:37)
[2022-10-17] MEDS: CHOLECALCIFEROL 25 MCG (1000 IU) TABLET PO SCH (08:25)
[2022-10-17] MEDS: lamoTRIgine 100 MG TAB PO SCH (08:25)
[2022-10-17] MEDS: ASCORBIC ACID 500 MG TAB PO SCH (08:25)
[2022-10-17] MEDS: LITHIUM CARBONATE 300 MG CAP PO SCH (08:25)
[2022-10-17] MEDS: LORazepam 0.5 MG TAB PO SCH ×3 (08:25→20:20)
[2022-10-17] MEDS: atenoloL 25 MG TAB PO SCH (08:25)
[2022-10-17] MEDS: ENOXAPARIN 40 MG/0.4 ML SYRINGE SQ SCH (08:26)
[2022-10-17] MEDS: PARoxetine 10 MG TAB PO SCH ×3 (08:26→20:20)
--- NOTE | 2022-10-17 11:19 | P.PN ---
Subjective Progress Note Date: 10/17/22 Principal diagnosis: AMS Hospital Course: Patient is a 67-year-old female with history of schizophrenia, anxiety, diabetes, hypothyroidism, hypertension, dyslipidemia presenting with altered mentation. Patient is a poor historian. Per chart review, patient's visiting caregiver noted that she was having slurred speech with, and decided to see her in person. She then decided to call EMS for altered mentation. Patient was also having falls. In the ED, vital signs were within normal limits. Laboratory workup showed leukocytosis 17.2, elevated BUN at 33, positive for benzodiazepines, UA showed large leukocyte esterase, negative nitrites. She was given IV ceftriaxone in the ED. Also given IV fluids, admitted for altered mentation and UTI. Urine culture showing no growth. Antibiotics discontinued. Patient also on multiple psychotropic medications, possibly encephalopathy related to medication use. Pyschiatry consulted. Medications reconciled. Subjective: Patient seen and examined at bedside. No acute events overnight. She denies any abdominal pain, chest pain, shortness of breath, nausea, vomiting, diarrhea, constipation, or urinary complaints. Pertinent positives and negatives as discussed above, a complete review of systems was performed and all other systems are negative. Vitals Signs Reviewed. General: nontoxic, no distress, appears at stated age Derm: warm, dry Head: atraumatic, normocephalic, symmetric Eyes: EOMI, no lid lag, anicteric sclera, pupils equal round reactive to light ENT: Nose and ears atraumatic Neck: No thyromegaly, supple Mouth: no lip lesion, mucus membranes moist Cardiovascular: S1S2 reg, no murmur, no edema Lungs: clear to auscultation bilateral, no rhonchi, no rales, no wheeze, no accessory muscle use Abdominal: soft, nontender to palpation, no guarding, no appreciable organomegaly Ext: no gross muscle atrophy, muscle strength muscle strength 5 out of 5 in all 4 extremities, no contractures Neuro: CN II-XII grossly intact Psych: Alert, oriented x 1, appropriate affect Assessment and Plan: Acute metabolic/toxic/infectious encephalopathy, possibly at baseline Possible acute dysarthria Leukocytosis - likely reactive, improving Sterile pyuria Elevated BUN Anxiety Schizoaffective disorder - IV antibiotics discontinued - Patient also on lithium, lithium levels therapeutic - Continue Lamictal and paroxetine, lamictal levels therapeutic - Urine tox positive for benzodiazepines, patient on Ativan scheduled at home, monitor for signs of withdrawal - Oxybutynin and trihexyphenidyl holding due to anticholinergic effects - Continue IV fluids - neurology consulted, MRI pending - Psychiatry consult with regards to medication reconciliation - restarted ativan at a lower dose, decresed paroxetine, restarted lithium, added zyprexa Hypothyroidism - continue levothyroxine, TSH normal Diabetes - hold metformin, sliding scale insulin Dyslipidemia -continue statin Hypertension - continue atenolol DVT ppx: Lovenox Code status: Full code Anticipated discharge place: Pending clinical course Anticipated discharge time: Pending clinical course Objective - Vital Signs Vital signs: Vital Signs Temp 97.6 F 10/17/22 07:00 Pulse 58 L 10/17/22 07:00 Resp 16 10/17/22 08:00 BP 142/81 10/17/22 07:00 Pulse Ox 98 10/17/22 08:05 FiO2 Intake & Output 10/16/22 10/17/22 10/17/22 18:59 06:59 18:59 Other: Voiding Method Toilet Toilet Toilet # Voids 1 2 - Labs CBC & Chem 7: 10/16/22 05:30 10/14/22 15:30 Labs: Abnormal Lab Results - Last 24 Hours (Table) 10/16/22 10/16/22 10/16/22 Range/Units 12:35 17:16 20:01 POC Glucose (mg/dL) 117 H 185 H 165 H (70-110) mg/dL 10/17/22 Range/Units 06:23 POC Glucose (mg/dL) 135 H (70-110) mg/dL
[2022-10-17 12:29] LABS: Glucose,Whole Blood 154 mg/dL (70-110)
--- NOTE | 2022-10-17 13:40 | P.PN ---
Progress Note - Text Progress Note Date: 10/17/22 Psychiatry follow-up note: Interval history: Patient was seen in her room where she was sitting up in bed eating her lunch. She is calm and attempts to cooperative, however is easily confused. She is alert and oriented to person, place ([facility], has difficulty coming up with [place]), but is not oriented to time (states it is the 11th day of the 11th month, and cannot come up with the year). She reports her mood is "not good" because of her medical problems. She denies visual hallucinations however she does endorse auditory hallucinations of hearing two voices but can't make out what they're saying. She reports good appetite and good sleep. At this time, patient denies any suicidal or homicidal ideation, intent or plan. Patient denies any side effects from the medications and has been compliant with meds. I spoke with patient's nurse who reports patient has been calm but confused, has not been agitated, reportedly slept well last but was confused when she came out of her room to use the bathroom and required redirection. Mental status exam: General Appearance: Patient appears to be stated age is alert, disheveled, dressed in hospital gown, in no apparent distress Behavior: No agitated behavior. Patient is calm and directable. Speech: Patient's speech is fluent and non-pressured. Mood/Affect: Mood is "not good", affect is congruent and constricted. Suicidality/Homicidality: Patient denies having any suicidal or homicidal ideation intent or plan. Perceptions: Patient endorses auditory hallucinations but denies visual hallucinations. Though content/process: There is no evidence of any delusional thought content and thought process is concrete with some word finding difficulties. Memory and concentration: Alert and oriented to person, place. Not oriented to time. Judgment and insight: fair IMPRESSIONS: Delirium likely secondary to multiple etiologies including infection, medications, possible benzodiazepine withdrawal etc. Schizoaffective disorder PLAN: -At this time patient DOES NOT meet criteria for inpatient psychiatric admission. -Delirium precautions recommended with patient including - avoiding use of narcotics and DIAMOND SORTER sedatives, limit anticholinergic medications when possible, frequent re-orientation, minimize use of restraints, open window shades during the day and close them at night. -Continue to treat underlying medical illness as you are. -Would recommend the following medication changes/additions: Increase Zyprexa to 5 mg QHS for psychosis/sleep. -kettle worker to provide patient with outpatient mental health/psychiatry resources for appropriate follow up upon discharge -Communicated plan to patient's nurse -Will continue to follow along -Please contact with any questions.
[2022-10-17 16:56] LABS: Glucose,Whole Blood 161 mg/dL (70-110)
[2022-10-17 20:01] LABS: Glucose,Whole Blood 164 mg/dL (70-110)
[2022-10-17] MEDS: OLANZapine 5 MG TAB PO SCH (20:20)
[2022-10-17] MEDS: ATORVASTATIN 20 MG TAB PO SCH (20:20)
[2022-10-18 06:12] LABS: Glucose,Whole Blood 131 mg/dL (70-110)
[2022-10-18] MEDS: INSULIN ASPART (NovoLOG) 100 UNIT/ML VIAL SQ SCH ×4 (06:13→21:19)
[2022-10-18] MEDS: SODIUM CHLORIDE 0.9% 1,000 ML IV SCH ×2 (06:15→20:40)
[2022-10-18] MEDS: PANTOPRAZOLE 40 MG TABLET PO SCH (06:15)
[2022-10-18] MEDS: LEVOTHYROXINE 50 MCG TAB PO SCH (06:15)
[2022-10-18] MEDS: atenoloL 25 MG TAB PO SCH (09:36)
[2022-10-18] MEDS: ASCORBIC ACID 500 MG TAB PO SCH (09:36)
[2022-10-18] MEDS: lamoTRIgine 100 MG TAB PO SCH (09:36)
[2022-10-18] MEDS: CHOLECALCIFEROL 25 MCG (1000 IU) TABLET PO SCH (09:36)
[2022-10-18] MEDS: LORazepam 0.5 MG TAB PO SCH ×3 (09:36→21:21)
[2022-10-18] MEDS: LITHIUM CARBONATE 300 MG CAP PO SCH (09:37)
[2022-10-18] MEDS: ENOXAPARIN 40 MG/0.4 ML SYRINGE SQ SCH (09:37)
[2022-10-18] MEDS: PARoxetine 10 MG TAB PO SCH ×3 (09:37→21:21)
--- NOTE | 2022-10-18 10:39 | P.PN ---
Subjective Progress Note Date: 10/18/22 Principal diagnosis: AMS Hospital Course: Patient is a 67-year-old female with history of schizophrenia, anxiety, diabetes, hypothyroidism, hypertension, dyslipidemia presenting with altered mentation. Patient is a poor historian. Per chart review, patient's visiting caregiver noted that she was having slurred speech with, and decided to see her in person. She then decided to call EMS for altered mentation. Patient was also having falls. In the ED, vital signs were within normal limits. Laboratory workup showed leukocytosis 17.2, elevated BUN at 33, positive for benzodiazepines, UA showed large leukocyte esterase, negative nitrites. She was given IV ceftriaxone in the ED. Also given IV fluids, admitted for altered mentation and UTI. Urine culture showing no growth. Antibiotics discontinued. Patient also on multiple psychotropic medications, possibly encephalopathy related to medication use. Pyschiatry consulted. Medications reconciled. Subjective: Patient seen and examined at bedside. No acute events overnight. She denies any abdominal pain, chest pain, shortness of breath, nausea, vomiting, diarrhea, constipation, or urinary complaints. Pertinent positives and negatives as discussed above, a complete review of systems was performed and all other systems are negative. Vitals Signs Reviewed. General: nontoxic, no distress, appears at stated age Derm: warm, dry Head: atraumatic, normocephalic, symmetric Eyes: EOMI, no lid lag, anicteric sclera, pupils equal round reactive to light ENT: Nose and ears atraumatic Neck: No thyromegaly, supple Mouth: no lip lesion, mucus membranes moist Cardiovascular: S1S2 reg, no murmur, no edema Lungs: clear to auscultation bilateral, no rhonchi, no rales, no wheeze, no accessory muscle use Abdominal: soft, nontender to palpation, no guarding, no appreciable organomegaly Ext: no gross muscle atrophy, muscle strength muscle strength 5 out of 5 in all 4 extremities, no contractures Neuro: CN II-XII grossly intact Psych: Alert, oriented x 1, appropriate affect Assessment and Plan: Acute metabolic/toxic/infectious encephalopathy, possibly at baseline Possible acute dysarthria Leukocytosis - likely reactive, improving Sterile pyuria Elevated BUN Anxiety Schizoaffective disorder - IV antibiotics discontinued - Patient also on lithium, lithium levels therapeutic - Continue Lamictal and paroxetine, lamictal levels therapeutic - Urine tox positive for benzodiazepines, patient on Ativan scheduled at home, monitor for signs of withdrawal - Oxybutynin and trihexyphenidyl holding due to anticholinergic effects - Continue IV fluids - neurology consulted, MRI completed, report pending - Psychiatry consult with regards to medication reconciliation - restarted ativan at a lower dose, decresed paroxetine, restarted lithium, added zyprexa (increased overnight) Hypothyroidism - continue levothyroxine, TSH normal Diabetes - hold metformin, sliding scale insulin Dyslipidemia -continue statin Hypertension - continue atenolol DVT ppx: Lovenox Code status: Full code Anticipated discharge place: Pending clinical course Anticipated discharge time: Pending clinical course Objective - Vital Signs Vital signs: Vital Signs Temp 97.5 F L 10/18/22 07:00 Pulse 57 L 10/18/22 07:00 Resp 18 10/18/22 07:00 BP 153/93 10/18/22 07:00 Pulse Ox 95 10/18/22 07:52 FiO2 Intake & Output 10/17/22 10/18/22 10/18/22 18:59 06:59 18:59 Intake Total 240 120 Balance 240 120 Intake: Oral 240 120 Other: Voiding Method Toilet Toilet # Voids 1 1 - Labs CBC & Chem 7: 10/16/22 05:30 10/14/22 15:30 Labs: Abnormal Lab Results - Last 24 Hours (Table) 10/17/22 10/17/22 10/17/22 Range/Units 12:20 16:54 20:00 POC Glucose (mg/dL) 154 H 161 H 164 H (70-110) mg/dL 10/18/22 Range/Units 06:11 POC Glucose (mg/dL) 131 H (70-110) mg/dL
[2022-10-18 12:16] LABS: Glucose,Whole Blood 125 mg/dL (70-110)
[2022-10-18 17:13] LABS: Glucose,Whole Blood 169 mg/dL (70-110)
[2022-10-18 20:35] LABS: Glucose,Whole Blood 138 mg/dL (70-110)
[2022-10-18] MEDS: ATORVASTATIN 20 MG TAB PO SCH (21:20)
[2022-10-18] MEDS: OLANZapine 5 MG TAB PO SCH (21:21)
[2022-10-19 06:02] LABS: Glucose,Whole Blood 145 mg/dL (70-110)
[2022-10-19] MEDS: INSULIN ASPART (NovoLOG) 100 UNIT/ML VIAL SQ SCH ×4 (06:03→20:44)
[2022-10-19] MEDS: PANTOPRAZOLE 40 MG TABLET PO SCH (06:05)
[2022-10-19] MEDS: LEVOTHYROXINE 50 MCG TAB PO SCH (06:05)
[2022-10-19] MEDS: ENOXAPARIN 40 MG/0.4 ML SYRINGE SQ SCH (08:09)
[2022-10-19] MEDS: LITHIUM CARBONATE 300 MG CAP PO SCH (08:09)
[2022-10-19] MEDS: ASCORBIC ACID 500 MG TAB PO SCH (08:10)
[2022-10-19] MEDS: CHOLECALCIFEROL 25 MCG (1000 IU) TABLET PO SCH (08:10)
[2022-10-19] MEDS: lamoTRIgine 100 MG TAB PO SCH (08:10)
[2022-10-19] MEDS: PARoxetine 10 MG TAB PO SCH ×3 (08:10→20:51)
[2022-10-19] MEDS: atenoloL 25 MG TAB PO SCH (08:10)
[2022-10-19] MEDS: LORazepam 0.5 MG TAB PO SCH ×3 (08:16→20:51)
[2022-10-19] MEDS: SODIUM CHLORIDE 0.9% 1,000 ML IV SCH (08:16)
--- NOTE | 2022-10-19 08:57 | MR ---
EXAMINATION TYPE: MR brain wo/w con DATE OF EXAM: 10/17/2022 11:45 AM COMPARISON: 05/15/2019 HISTORY: Acute dysarthria. ? hx of seizure CONTRAST: Patient received 9 mL intravenous Gadavist gadolinium contrast. Multiplanar and multispin-echo imaging of the brain was performed . Pre and post contrast enhanced i mages are obtained. The ventricles, basal cisterns and sulci overlying the cerebral convexities are mildly enlarged. There is evidence of mild periventricular white matter ischemic demyelination. Remote deep white matter insults are also noted. No acute edema is seen on diffusion weighted imaging. There is no evidence for midline shift or mass effect. Acute intracranial hemorrhage or extra-axial collection is not evident. No enhancing lesions are seen. The paranasal sinuses and mastoid air cells are well-aerated. IMPRESSION: Age-related atrophic and chronic small vessel ischemic change. No acute intracranial process at this time. No enhancing lesions are seen.
[2022-10-19 11:35] LABS: Glucose,Whole Blood 281 mg/dL (70-110)
--- NOTE | 2022-10-19 11:37 | P.PN ---
Subjective Progress Note Date: 10/19/22 Principal diagnosis: AMS Hospital Course: Patient is a 67-year-old female with history of schizophrenia, anxiety, diabetes, hypothyroidism, hypertension, dyslipidemia presenting with altered mentation. Patient is a poor historian. Per chart review, patient's visiting caregiver noted that she was having slurred speech with, and decided to see her in person. She then decided to call EMS for altered mentation. Patient was also having falls. In the ED, vital signs were within normal limits. Laboratory workup showed leukocytosis 17.2, elevated BUN at 33, positive for benzodiazepines, UA showed large leukocyte esterase, negative nitrites. She was given IV ceftriaxone in the ED. Also given IV fluids, admitted for altered mentation and UTI. Urine culture showing no growth. Antibiotics discontinued. Patient also on multiple psychotropic medications, possibly encephalopathy related to medication use. Pyschiatry consulted. Medications reconciled. Subjective: Patient seen and examined at bedside. No acute events overnight. She denies any abdominal pain, chest pain, shortness of breath, nausea, vomiting, diarrhea, constipation, or urinary complaints. Pertinent positives and negatives as discussed above, a complete review of systems was performed and all other systems are negative. Vitals Signs Reviewed. General: nontoxic, no distress, appears at stated age Derm: warm, dry Head: atraumatic, normocephalic, symmetric Eyes: EOMI, no lid lag, anicteric sclera, pupils equal round reactive to light ENT: Nose and ears atraumatic Neck: No thyromegaly, supple Mouth: no lip lesion, mucus membranes moist Cardiovascular: S1S2 reg, no murmur, no edema Lungs: clear to auscultation bilateral, no rhonchi, no rales, no wheeze, no accessory muscle use Abdominal: soft, nontender to palpation, no guarding, no appreciable organomegaly Ext: no gross muscle atrophy, muscle strength muscle strength 5 out of 5 in all 4 extremities, no contractures Neuro: CN II-XII grossly intact Psych: Alert, oriented x 1, appropriate affect Assessment and Plan: Acute metabolic/toxic/infectious encephalopathy, now at baseline Possible acute dysarthria, likely chronic Leukocytosis - likely reactive, improving Sterile pyuria Elevated BUN Anxiety Schizoaffective disorder - IV antibiotics discontinued - Patient also on lithium, lithium levels therapeutic - Continue Lamictal and paroxetine, lamictal levels therapeutic - Urine tox positive for benzodiazepines, patient on Ativan scheduled at home, monitor for signs of withdrawal - Oxybutynin and trihexyphenidyl holding due to anticholinergic effects - Continue IV fluids - neurology consulted, MRI - no acute process - Psychiatry consult with regards to medication reconciliation - restarted ativan at a lower dose, decresed paroxetine, restarted lithium, added zyprexa (increased overnight) Hypothyroidism - continue levothyroxine, TSH normal Diabetes - hold metformin, sliding scale insulin Dyslipidemia -continue statin Hypertension - continue atenolol DVT ppx: Lovenox Code status: Full code Anticipated discharge place: likely assisted living vs SNF Anticipated discharge time: depending on bed availability Objective - Vital Signs Vital signs: Vital Signs Temp 97.6 F 10/19/22 07:00 Pulse 75 10/19/22 08:00 Resp 18 10/19/22 08:00 BP 144/94 10/19/22 07:00 Pulse Ox 97 10/19/22 07:52 FiO2 Intake & Output 10/18/22 10/19/22 10/19/22 18:59 06:59 18:59 Intake Total 360 118 Balance 360 118 Intake: Oral 360 118 Other: Voiding Method Toilet Toilet Toilet # Voids 1 2 - Labs CBC & Chem 7: 10/16/22 05:30 10/14/22 15:30 Labs: Abnormal Lab Results - Last 24 Hours (Table) 10/18/22 10/18/22 10/18/22 Range/Units 11:55 17:04 20:34 POC Glucose (mg/dL) 125 H 169 H 138 H (70-110) mg/dL 10/19/22 10/19/22 Range/Units 06:01 11:32 POC Glucose (mg/dL) 145 H 281 H (70-110) mg/dL
[2022-10-19] MEDS: ASPIRIN 81 MG PO SCH (12:33)
--- NOTE | 2022-10-19 12:35 | P.PN ---
Subjective Progress Note Date: 10/19/22 Patient was seen for a follow-up. Patient last seen by neurology service Dr. He on 10/16/2022. Please refer to his note for details. Patient is a 67-year-old female , who states that she came to the hospital because she was "losing speech". Patient is laying comfortably in the bed. She states that she fell "right here", pointing to the door, states that she fell in middle of the night, 2 days ago. She states her speech is better. She denies any use of tobacco or alcohol. She denies any diplopia, droopy eyelids, or dysphagia. She admits to having significant stress, depression and anxiety. She states that she always have history of depression. Patient able to tell me that she lives by herself, with her 2 cats. She has a daughter, who lives 5 blocks away. Her daughter does check on her. Some of the workup during his hospital visit consisted of: Patient is afebrile Serum alcohol was less than 10 Falconer is 0.9 Lamotrigine is 3.5 which is a within the therapeutic range and it's low normal area Vitamin B-12 was 420 Ammonia level is less than 9 Urine drug screen is positive for benzos otherwise the rest is not detected. Serum alcohol less than 10 Urinalysis seems possible suggestive of urinary tract infection CT of the head is reported as no acute intracranial hemorrhage or midline shift. There is mild to moderate diffuse cerebral atrophy greatest over the bilateral frontal lobe redemonstrated. No significant change from prior. Dr. He had personally reviewed the CT of the head and I agree with the report. Routine EEG is normal Objective - Vital Signs Vital signs: Vital Signs Temp 97.6 F 10/19/22 07:00 Pulse 75 10/19/22 07:00 Resp 18 10/19/22 07:00 BP 144/94 10/19/22 07:00 Pulse Ox 97 10/19/22 07:52 FiO2 Intake & Output 10/18/22 10/19/22 10/19/22 18:59 06:59 18:59 Intake Total 360 Balance 360 Intake: Oral 360 Other: Voiding Method Toilet Toilet # Voids 1 2 - Exam GENERAL: The patient is lying in bed and is not in acute distress. NEUROLOGICAL: Higher mental function: The patient is awake, alert, oriented to self. She could not tell the current month or the year or the city or state she is in. She was able to tell that she lives in [place] in [place]. Patient has bilaterally positive palmomental reflex, and positive visuospatial apraxia.. Patient is following simple commands. She is slow responding to questions. No aphasia and no neglect. Cranial nerves: The pupils are round, equal and reactive to light. Visual hernandez are full to confrontation throughout, no neglect. Extraocular movement is intact no nystagmus is noted. Facial sensation is normal to touch throughout. The facial strength is normal throughout. Hearing is mildly decr eased bilaterally to hand rub. Tongue is midline and moved [id number] without any difficulty. Very mild dysarthria is noted. Shoulder shrug is normal bilaterally. Motor: The strength is 5 over 5 throughout. Normal tone and bulk. Cerebellum: Normal finger to nose bilaterally. Sensation: Sensation is normal to touch throughout, with no neglect on double simultaneous stimulation. Reflexes (right/left): 2+ throughout. Plantars are mute bilaterally. - Labs CBC & Chem 7: 10/16/22 05:30 10/14/22 15:30 Labs: Abnormal Lab Results - Last 24 Hours (Table) 10/18/22 10/18/22 10/18/22 Range/Units 11:55 17:04 20:34 POC Glucose (mg/dL) 125 H 169 H 138 H (70-110) mg/dL 10/19/22 Range/Units 06:01 POC Glucose (mg/dL) 145 H (70-110) mg/dL Assessment and Plan Assessment: Acute dysarthria: No evidence of an acute stroke. Altered mental status seems due to possibly underlying acute urinary tract infection. Rule out psychiatric condition and side-effect of medication. Routine EEG is normal. Recent fall unknown exact etiology Acute urinary tract infection History of seizure about 20 years ago and was told due to medication effect Diabetes mellitus Hypertension Hypothyroidism Mood disorder and is on Falconer and Lamictal Probable underlying cognitive impairment. Plan: * MRI Brain with and without contrast was negative for any acute stroke. Age- related atrophic and chronic small vessel ischemic change. No enhancing lesion. I personally reviewed MRI, I agree with the findings. There is significant frontal lobe atrophy. Prominent lateral sulcus bilaterally. * Check carotid Doppler. * Patient started on aspirin 81 mg daily for stroke prevention. Patient does have multiple vascular risk factors. * Hemoglobin A1c 6.5 on 11/04/2022 * Lipid panel with cholesterol 115, LDL 26, HDL 44 and triglycerides, 217. * B12 420, folate 13.8, normal thyroid functions. Ammonia <9 * PT OT, speech therapy. * Psychiatry team was consulted by the primary team * Will defer the rest of medical management to primary team. Addendum: Carotid Doppler revealed no evidence of hemodynamically significant stenosis. Antegrade flow in both vertebral arteries.
--- NOTE | 2022-10-19 13:38 | US ---
EXAMINATION TYPE: US carotid duplex BILAT DATE OF EXAM: 10/19/2022 COMPARISON: MRI CLINICAL HISTORY: Slurred speech. Slurred speech, pt states weakness TECHNIQUE: Carotid duplex ultrasound examination. Indirect Doppler criteria was utilized. FINDINGS: EXAM MEASUREMENTS: RIGHT: Peak Systolic Velocity (PSV) cm/sec ----- Right CCA: 79.9 ----- Right ICA: 96.1 ----- Right ECA: 106 ICA/CCA ratio: 1.2 RIGHT: End Diastole cm/sec ----- Right CCA: 16.9 ----- Right ICA: 14.9 ----- Right ECA: 0.0 LEFT: Peak Systolic Velocity (PSV) cm/sec ----- Left CCA: 98.7 ----- Left ICA: 96.8 ----- Left ECA: 109 ICA/CCA ratio: 1.0 LEFT: End Diastole cm/sec ----- Left CCA: 16.2 ----- Left ICA: 24.7 ----- Left ECA: 15.4 VERTEBRALS (direction of flow): Right Vertebral: Antegrade Left Vertebral: Antegrade Rhythm: Normal WEB SITE MANAGER NOTES: No evidence of significant stenosis bilaterally/ bilateral carotid vessels dive deep within neck proximally IMPRESSION: No evidence for hemodynamically significant stenosis. Criteria for Assigning % of Stenosis / Diameter reduction (Estimation based on the indirect measurements of the internal carotid artery velocities (ICA PSV). 1. Normal (no stenosis)=ICA PSV < 125 cm/s: ratio < 2.0: ICA EDV<40 cm/s. 2. Less than 50% stenosis=ICA PSV < 125 cm/s: ratio < 2.0: ICA EDV<40 cm/s. 3. 50 to 69% stenosis=ICA PSV of 125 to 230 cm/s: ration 2.0 ? 4.0: ICA EDV 40-100 cm/s. 4. Greater than 70% stenosis to near occlusion= ICA PSV > 230 cm/s: ratio > 4.0: ICA EDV > 100 cm/s. 5. Near occlusion= ICA PSV velocities may be low or undetectable: variable ratio and ICA EDV. 6. Total occlusion=unable to detect flow.
--- NOTE | 2022-10-19 14:27 | P.PN ---
Progress Note - Text Progress Note Date: 10/19/22 Interval history: Patient was seen in her room today and agreeable to speak a telegraphic typewriter operator chief. She was watching television and also just finished her lunch. She states that she had a hamburger earlier. She continues to have some word finding difficulties however this has improved since Wednesday. She claims that her mood is a bit better and denying any anxiety at this time. She does claim that she has chronic auditory hallucinations however states that they have improved since being in the [facility] and her non-distressing to her. She is denying any suicidal or homicidal ideations intent or plan. She was oriented to place, name however still struggles with the date and did not want to gas. She claims that she was able to sleep fairly the past couple of days. Fair appetite. She was asking about potential discharge. Mental status exam: General Appearance: Patient appears to be stated age is alert, improved grooming, dressed in hospital gown, in no apparent distress Behavior: No agitated behavior. Patient is calm and directable. Speech: Patient's speech is fluent and non-pressured. Mood/Affect: Mood is "good", affect is congruent and constricted. Suicidality/Homicidality: Patient denies having any suicidal or homicidal ideation intent or plan. Perceptions: Patient endorses chronic auditory hallucinations, non-distressing, but denies visual hallucinations. Though content/process: There is no evidence of any delusional thought content and thought process is concrete with some word finding difficulties, improved since Wednesday. Memory and concentration: Alert and oriented to person, place. Not oriented to time/date. Follows commands and direction. Improved concentration. Judgment and insight: Chronically limited, improved IMPRESSIONS: Delirium likely secondary to multiple etiologies including infection, medications, possible benzodiazepine withdrawal etc. Schizoaffective disorder PLAN: -At this time patient DOES NOT meet criteria for inpatient psychiatric admission. -Delirium precautions recommended with patient including - avoiding use of narcotics and ENVELOPE SEALER sedatives, limit anticholinergic medications when possible, frequent re-orientation, minimize use of restraints, open window shades during the day and close them at night. -Continue to treat underlying medical illness -Would recommend the following medication changes/additions: Zyprexa 5 mg QHS for psychosis/sleep. continue with the rest of psych meds as perscribed. Patient should be gradually weaned down off of ativan after discharge. -cheese factory worker to provide patient with outpatient mental health/psychiatry resources for appropriate follow up upon discharge -Communicated plan to patient's nurse -at this time psychiatry will sign off -Please contact with any questions.
[2022-10-19 17:12] LABS: Glucose,Whole Blood 152 mg/dL (70-110)
[2022-10-19 20:38] LABS: Glucose,Whole Blood 135 mg/dL (70-110)
[2022-10-19] MEDS: OLANZapine 5 MG TAB PO SCH (20:51)
[2022-10-19] MEDS: ATORVASTATIN 20 MG TAB PO SCH (20:51)
[2022-10-20] MEDS: SODIUM CHLORIDE 0.9% 1,000 ML IV SCH (00:30)
[2022-10-20 06:20] LABS: Glucose,Whole Blood 132 mg/dL (70-110)
[2022-10-20] MEDS: INSULIN ASPART (NovoLOG) 100 UNIT/ML VIAL SQ SCH ×2 (06:35→13:49)
[2022-10-20] MEDS: PANTOPRAZOLE 40 MG TABLET PO SCH (06:50)
[2022-10-20] MEDS: LEVOTHYROXINE 50 MCG TAB PO SCH (06:50)
[2022-10-20] MEDS: ASCORBIC ACID 500 MG TAB PO SCH (08:18)
[2022-10-20] MEDS: ENOXAPARIN 40 MG/0.4 ML SYRINGE SQ SCH (08:18)
[2022-10-20] MEDS: CHOLECALCIFEROL 25 MCG (1000 IU) TABLET PO SCH (08:18)
[2022-10-20] MEDS: atenoloL 25 MG TAB PO SCH (08:19)
[2022-10-20] MEDS: LITHIUM CARBONATE 300 MG CAP PO SCH (08:19)
[2022-10-20] MEDS: LORazepam 0.5 MG TAB PO SCH (08:19)
[2022-10-20] MEDS: ASPIRIN 81 MG PO SCH (08:19)
[2022-10-20] MEDS: lamoTRIgine 100 MG TAB PO SCH (08:19)
[2022-10-20] MEDS: PARoxetine 10 MG TAB PO SCH (08:20)
[2022-10-20 08:57] VITALS: BP 134/78; PULSE 57; RESP 16; TEMP 98.1
[2022-10-20 12:08] LABS: Glucose,Whole Blood 128 mg/dL (70-110)
--- NOTE | 2022-10-20 13:25 | P.DS ---
Providers Date of admission: 10/17/22 14:54 Expected date of discharge: 10/20/22 Attending physician: Rodrick Mckeon MD Consults: 10/14/22 23:11 Consult Physician Routine Consulting Provider: Yamil He Consult Reason/Comments: altered mental status Do you want consulting provider notified?: Yes 10/16/22 11:30 Consult Physician Routine Consulting Provider: Vinay Mnedez Consult Reason/Comments: multiple psychiatric meds, encephalopathic Do you want consulting provider notified?: Yes Primary care physician: Bishop Almonte MD Hospital Course: Discharge Diagnosis: Acute metabolic encephalopathy Dysarthria Leukocytosis Sterile pyuria Elevated BUN Anxiety Schizoaffective disorder Hypothyroidism Diabetes Dyslipidemia Hypertension Hospital Course: Patient is a 67-year-old female with history of schizophrenia, anxiety, diabetes, hypothyroidism, hypertension, dyslipidemia presenting with altered mentation. Patient is a poor historian. Per chart review, patient's visiting caregiver noted that she was having slurred speech with, and decided to see her in person. She then decided to call EMS for altered mentation. Patient was also having falls. In the ED, vital signs were within normal limits. Laboratory workup showed leukocytosis 17.2, elevated BUN at 33, positive for benzodiazepines, UA showed large leukocyte esterase, negative nitrites. She was given IV ceftriaxone in the ED. Also given IV fluids, admitted for altered mentation and UTI. Urine culture showing no growth. Antibiotics discontinued. Patient also on multiple psychotropic medications, possibly encephalopathy related to medication use. Pyschiatry consulted. Medications reconciled. Avoid anticholinergic drugs. Neurology was also consulted. MRI brain showed no acute process. Carotid Dopplers did not show any significant stenosis. Patient to be discharged on aspirin as well. Patient seen and examined at bedside. Vital signs reviewed and stable. General: nontoxic, no distress, appears at stated age Derm: warm, dry Head: atraumatic, normocephalic, symmetric Eyes: EOMI, no lid lag, anicteric sclera, pupils equal round reactive to light ENT: Nose and ears atraumatic Neck: No thyromegaly, supple Mouth: no lip lesion, mucus membranes moist Cardiovascular: S1S2 reg, no murmur, no edema Lungs: clear to auscultation bilateral, no rhonchi, no rales, no wheeze, no accessory muscle use Abdominal: soft, nontender to palpation, no guarding, no appreciable organomegaly Ext: no gross muscle atrophy, muscle strength muscle strength 5 out of 5 in all 4 extremities, no contractures Neuro: CN II-XII grossly intact Psych: Alert, oriented x 1, appropriate affect A total of 38 minutes of time were spent preparing this complex discharge summary. Patient was discharged on 10/20/22 at 9:59. Patient Condition at Discharge: Stable Plan - Discharge Summary Discharge Rx Participant: No New Discharge Prescriptions: New LORazepam [Ativan] 0.5 mg PO TID #0 tab PARoxetine [Paxil] 10 mg PO TID tab Aspirin 81 mg PO DAILY #30 tab OLANZapine [ZyPREXA] 5 mg PO HS #30 tab Continue Levothyroxine Sodium [Synthroid] 50 mcg PO DAILY metFORMIN HCL [Glucophage] 500 mg PO BID Atorvastatin [Lipitor] 20 mg PO HS rOPINIRole HCL [Requip] 0.5 mg PO HS lamoTRIgine [LaMICtal] 200 mg PO DAILY [place] Carbonate 600 mg PO DAILY atenoloL 25 mg PO DAILY Omeprazole 20 mg PO DAILY Cholecalciferol [Vitamin D3 (25 Mcg = 1000 Iu)] 50 mcg PO DAILY Ascorbic Acid [Vitamin C] 500 mg PO DAILY Discontinued Meloxicam [Mobic] 7.5 mg PO DAILY Oxybutynin Chloride [Ditropan] 5 mg PO BID Trihexyphenidyl [Artane] 2 mg PO QID PARoxetine [Paxil] 10 mg PO QID LORazepam [Ativan] 0.5 mg PO QID Levocetirizine Dihydrochloride 5 mg PO DAILY Discharge Medication List Levothyroxine Sodium [Synthroid] 50 mcg PO DAILY 06/01/15 [History] metFORMIN HCL [Glucophage] 500 mg PO BID 12/15/17 [History] Atorvastatin [Lipitor] 20 mg PO HS 03/07/18 [History] rOPINIRole HCL [Requip] 0.5 mg PO HS 06/09/18 [History] lamoTRIgine [LaMICtal] 200 mg PO DAILY 04/06/19 [History] Poneto Carbonate 600 mg PO DAILY 12/22/20 [History] atenoloL 25 mg PO DAILY 12/22/20 [History] Omeprazole 20 mg PO DAILY 01/23/21 [History] Ascorbic Acid [Vitamin C] 500 mg PO DAILY 10/14/22 [History] Cholecalciferol [Vitamin D3 (25 Mcg = 1000 Iu)] 50 mcg PO DAILY 10/14/22 [History] Aspirin 81 mg PO DAILY #30 tab 10/20/22 [Rx] LORazepam [Ativan] 0.5 mg PO TID #0 tab 10/20/22 [Rx] OLANZapine [ZyPREXA] 5 mg PO HS #30 tab 10/20/22 [Rx] PARoxetine [Paxil] 10 mg PO TID tab 10/20/22 [Rx] Follow up Appointment(s)/Referral(s): Analia Boogie MD [REFERRING] - 1-2 days (PLEASE CALL AND SCHEDULE APPOINTMENT.) Patient Instructions/Handouts: Aspirin (By mouth), Olanzapine (By mouth), Acute Delirium (DC), Encephalopathy (DC) Activity/Diet/Wound Care/Special Instructions: Patient is a recipient of the [place] [facility] program. Please notify them with discharge and they will arrange transportation: [phone] If patient is discharged home over the weekend please call her daughter Katie ([phone]) for transportation home Discharge Disposition: HOME WITH HOME HEALTH SERVICES
== END 2022-10-20 15:37 | disposition home health service (06) | DRG 93 ==
LOC: EC 14:41 → 6NMEDSUR 23:11 → OBSVTOIN 10-17 14:54
PROVIDERS: ADMIT Internal Medicine; ATTEND Internal Medicine
DX: G92.8 Other toxic encephalopathy (principal); E11.42 Type 2 diabetes mellitus with diabetic polyneuropathy; Z79.84 Long term (current) use of oral hypoglycemic drugs; E78.5 Hyperlipidemia, unspecified; F25.9 Schizoaffective disorder, unspecified; F41.9 Anxiety disorder, unspecified; T43.95XA Adverse effect of unspecified psychotropic drug, initial encounter; G40.909 Epilepsy, unspecified, not intractable, without status epilepticus; E66.9 Obesity, unspecified; F90.9 Attention-deficit hyperactivity disorder, unspecified type; M19.90 Unspecified osteoarthritis, unspecified site; I10 Essential (primary) hypertension; I25.2 Old myocardial infarction; G47.33 Obstructive sleep apnea (adult) (pediatric); R29.6 Repeated falls; Z68.34 Body mass index [BMI] 34.0-34.9, adult; E03.9 Hypothyroidism, unspecified; Z91.81 History of falling; R82.81 Pyuria; Z79.1 Long term (current) use of non-steroidal anti-inflammatories (NSAID); Z79.890 Hormone replacement therapy; Z79.899 Other long term (current) drug therapy; Z87.440 Personal history of urinary (tract) infections; R47.1 Dysarthria and anarthria; Z60.2 Problems related to living alone; H35.30 Unspecified macular degeneration; Z88.5 Allergy status to narcotic agent; Z88.0 Allergy status to penicillin; Z88.2 Allergy status to sulfonamides
CPT/HCPCS: 36415; 70450; 70553; 71046; 80053; 80175; 80178; 80306; 80320; 81001; 82140; 82607; 82746; 83036; 84443; 84484; 85025; 85610; 85730; 87086; 93005; 93880; 94760; 95816; 96361; 96365; 96366; 99285

== ENCOUNTER 2022-11-20 06:33 | Inpatient (IN) | payer OTHER ==
[2022-11-20] MEDS ORDERED: PANTOPRAZOLE 40 MG/10 ML VIAL IVP STA (06:39)
[2022-11-20] MEDS ORDERED: SODIUM CHLORIDE 0.9% 1,000 ML IV STA (06:39)
[2022-11-20] MEDS ORDERED: ONDANSETRON 4 MG/2 ML VIAL IVP STA (06:39)
[2022-11-20] MEDS ORDERED: KETOROLAC 15 MG/ML 1 ML VIAL IVP STA (06:39)
[2022-11-20] MEDS ORDERED: HYDROmorphone 0.5 MG/0.5 ML SYRINGE IVP STA (06:40)
--- NOTE | 2022-11-20 06:45 | ED ---
Abdominal Pain HPI - General Chief Complaint: Abdominal Pain Stated Complaint: Abd Pain Time Seen by Provider: 11/20/22 06:39 Source: patient, RN notes reviewed Mode of arrival: EMS Limitations: no limitations - History of Present Illness Initial Comments: This is a 67-year-old female who presents to the emergency department for abdominal pain. States that she has had intermittent abdominal pain over the last 3 days, however it became significantly worse this morning. Pain is described and stabbing and sharp. This morning, she also started to have nausea and vomiting. Denies any history of similar symptoms in the past. Denies any changes in bowel or urinary habits. Pain is described as being in the left upper quadrant and epigastric region with radiation to the left shoulder. Denies any associated back pain. She was given Zofran and 50mcg of fentanyl by EMS on route with no relief. She was then given an additional 50mcg of fentanyl with only minor improvement in symptoms. Denies any fevers, chills, sore throat, cough, dyspnea, chest pain, palpitations, diarrhea, back pain, or headaches. MD Complaint: abdominal pain Onset/Timin -: days(s) Location: LUQ, epigastric Quality: stabbing - Related Data Home Medications Medication Instructions Recorded Confirmed Levothyroxine Sodium [Synthroid] 50 mcg PO DAILY 06/01/15 11/20/22 metFORMIN HCL [Glucophage] 500 mg PO BID 12/15/17 11/20/22 Atorvastatin [Lipitor] 20 mg PO HS 03/07/18 11/20/22 rOPINIRole HCL [Requip] 0.5 mg PO HS 06/09/18 11/20/22 lamoTRIgine [LaMICtal] 200 mg PO DAILY 04/06/19 11/20/22 [place] Carbonate 600 mg PO DAILY 12/22/20 11/20/22 atenoloL 12.5 mg PO DAILY 12/22/20 11/20/22 Omeprazole 20 mg PO DAILY 01/23/21 11/20/22 Ascorbic Acid [Vitamin C] 500 mg PO DAILY 10/14/22 11/20/22 Cholecalciferol [Vitamin D3 (25 50 mcg PO DAILY 10/14/22 11/20/22 Mcg = 1000 Iu)] Albuterol Sulfate [Ventolin HFA] 2 puff INHALATION RT-QID PRN 11/20/22 11/20/22 Aspirin EC [Ecotrin Low Dose] 81 mg PO DAILY 11/20/22 11/20/22 Capsicum Oleoresin [Dermacinrx 1 applic TOPICAL TID PRN 11/20/22 11/20/22 Circata] LORazepam [Ativan] 0.5 mg PO QID PRN 11/20/22 11/20/22 Levocetirizine Dihydrochloride 5 mg PO DAILY 11/20/22 11/20/22 [Xyzal] Meloxicam [Mobic] 15 mg PO DAILY 11/20/22 11/20/22 Oxybutynin Chloride [Ditropan] 5 mg PO BID 11/20/22 11/20/22 Trihexyphenidyl [Artane] 2 mg PO QID 11/20/22 11/20/22 Previous Rx's Medication Instructions Recorded OLANZapine [ZyPREXA] 5 mg PO HS #30 tab 10/20/22 PARoxetine [Paxil] 10 mg PO TID tab 10/20/22 Allergies Allergy/AdvReac Type Severity Reaction Status Date / Time amoxicillin Allergy Rash/Hives Verified 11/20/22 10:22 codeine Allergy Unknown Verified 11/20/22 10:22 Sulfa (Sulfonamide Allergy Unknown Verified 11/20/22 10:22 Antibiotics) sulfamethoxazole Allergy Rash/Hives Verified 11/20/22 10:22 [From Bactrim] thioridazine [From Mellaril] Allergy Unknown Verified 11/20/22 10:22 trimethoprim [From Bactrim] Allergy Rash/Hives Verified 11/20/22 10:22 Review of Systems ROS Statement: Those systems with pertinent positive or pertinent negative responses have been documented in the HPI. ROS Other: All systems not noted in ROS Statement are negative. Past Medical History Past Medical History: Chest Pain / Angina, Diabetes Mellitus, Eye Disorder, GERD/Reflux, Hyperlipidemia, Hypertension, Memory Impairment, Osteoarthritis (OA), Seizure Disorder, Sleep Apnea/CPAP/BIPAP, Thyroid Disorder Additional Past Medical History / Comment(s): NIDDM type II, neuropathy bilateral legs/feet, BETINA/does not use device, short term memory issues, past seizure many years ago associated with a medication, hypothyroid, sinus issues, varicose vein, stress incontinence/urgency, frequent UTIs, RLS, lightheaded/dizzy when rising at times, bilateral eye macular degeneration, hyp oothyroid. Last Myocardial Infarction Date:: 2016 History of Any Multi-Drug Resistant Organisms: None Reported Past Surgical History: Section Additional Past Surgical History / Comment(s): D&C with hysteroscopy/colposcopy, surgery for deviated septum Past Anesthesia/Blood Transfusion Reactions: Motion Sickness Past Psychological History: Anxiety, Bipolar, Depression, Schizoaffective Disorder Additional Psychological History / Comment(s): Pt resides in her own home. She goes to [email or web address] during the daytime. Her hernán checks on her twice a day. Pt uses a cane or walker. [facility] manages her medications. Smoking Status: Never smoker Past Alcohol Use History: None Reported Past Drug Use History: None Reported - Past Family History Father Family Medical History: CVA/TIA Additional Family Medical History / Comment(s): SMOKED AND ABUSED ETOH- AGE 78- FROM STROKE Mother Additional Family Medical History / Comment(s): CRONIC BRONCHITIS.REMOVED PART OF ONE LUNG d/t the bronchitis infection General Exam General appearance: alert, in distress Head exam: Present: atraumatic, normocephalic, normal inspection Respiratory exam: Present: normal lung sounds bilaterally. Absent: respiratory distress, wheezes, rales, rhonchi, stridor Cardiovascular Exam: Present: regular rate, normal rhythm, normal heart sounds. Absent: systolic murmur, diastolic murmur, rubs, gallop, clicks GI/Abdominal exam: Present: soft, tenderness (Right upper quadrant, epigastric, and left upper quadrant), normal bowel sounds. Absent: distended Neurological exam: Present: alert, oriented X3, CN II-XII intact Psychiatric exam: Present: normal affect, normal mood Skin exam: Present: warm, dry, intact, normal color. Absent: rash Course Vital Signs 11/20/22 11/20/22 11/20/22 06:39 07:04 08:00 Temperature 99.7 F H Pulse Rate 98 84 Respiratory 18 Rate Blood Pressure 140/91 115/72 O2 Sat by Pulse 91 L 97 97 Oximetry 11/20/22 11/20/22 11/20/22 09:00 10:00 11:00 Temperature Pulse Rate 93 80 88 Respiratory Rate Blood Pressure 129/86 107/57 O2 Sat by Pulse 92 L 95 Oximetry 11/20/22 12:33 Temperature 97.4 F L Pulse Rate 109 H Respiratory 18 Rate Blood Pressure 147/82 O2 Sat by Pulse 97 Oximetry Medical Decision Making - Medical Decision Making This is a 67-year-old female who presents to the emergency department for abdominal pain. Was pt. sent in by a medical professional or institution? @ -No Did you speak to anyone other than the patient for history? @ -EMS Did you review nursing and triage notes? @ -Agree, accurate with regards to the patient's symptoms. Were old charts reviewed? @ -No Differential Diagnosis? @ -Differential Abdominal Pain Women: Appendicitis, Cholecystitis, diverticulosis, ischemic bowel, pancreatitis, hepatitis, UTI, gastroenteritis, AAA, incarcerated hernia, bowel obstruction, constipation, inflammatory bowel, hepatitis, peptic ulcer disease, splenic infarction, perforated viscus, vulvitis, ovarian torsion, PID, kidney stone, placenta abruption, this is not meant to be an all-inclusive list EKG interpreted by me (3pts min.)? @ -Sinus rhythm, ventricular rate 87 bpm, MN interval 155 ms, QRS duration 81 ms, QTC [address] interpreted by me (1pt min.)? @ -Computed tomography scan of the abdomen and pelvis obtained. My interpret ation reveals a left lower lobe consolidation, a hiatal hernia, and no dilation of the common bile duct or gallbladder wall thickening. -Computed tomography scan of the chest obtained. My interpretation reveals an extensive left lobe consolidation as noted in the computed tomography scan of the abdomen and pelvis. What testing was considered but not performed? (CT, X-rays, U/S, labs)? Why? @ -None What meds were considered but not given? Why? @ -None Did you discuss the management of the patient with other professionals? @ -Yes, Dr. Trinh who accepts the patient for admission Did you reconcile home meds? @ -Patient unclear on which medications she is supposed to be taking, will defer to admitting team. Was smoking cessation discussed for >3mins.? @ -No Was critical care preformed (if so, how long)? @ -No Were there social determinants of health that impacted care today? How? (Homelessness, low income, unemployed, alcoholism, drug addiction, transportation, low edu. Level, literacy, decrease access to med. care, custodial, rehab)? @ -No Was there de-escalation of care discussed even if they declined? (Discuss DNR or withdrawal of care, Hospice)? @ -No What co-morbidities impacted this encounter? (DM, HTN, Smoking, COPD, CAD, Cancer, CVA, Hep., AIDS, mental health diagnosis, sleep apnea, morbid obesity)? @ -DM, obesity, HTN, HLD, GERD. Was patient admitted / discharged? @ -Lab work obtained revealing a leukocytosis and acutely elevated liver enzymes. She is notably tender to palpation in the epigastric, left upper quadrant, and right upper quadrant regions. Ultrasound of the gallbladder was then obtained. The evaluation was significantly limited due to the patient's body habitus and overlying bowel gas, however there was no clear evidence for an acute cholecystitis. Computed tomography scan of the abdomen and pelvis was subsequently obtained. This revealed concerns for an extensive consolidation of the left lower lung base and parapneumatic effusion. There is also a nodule of the right lung base suspicious for aspiration or bronchitis. Findings also include a hiatal hernia and fat-containing umbilical hernia. Given the concern for the pneumonia, a computed tomography scan of the chest was subsequently obtained. CT scan of the chest reveals the prominent consolidation of the left lung base extending up into the infrahilar region. She was started on the pneumonia protocol with ceftriaxone, azithromycin, and Flagyl with blood cultures obtained prior. Findings were discussed with the patient, who originally denied any chest pain or shortness of breath. States that the more that she thinks about it, she has had some increasing shortness of breath over the last 2-3 weeks, but states that she did not think much of it. Also notes that the abdominal pain is much more bothersome than the shortness of breath. Continues to deny any chest pain. Drug Therapy requiring intensive monitoring for toxicity (Heparin, Nitro, Insulin, Cardizem)? @ -None Were any procedures done? @ -None Diagnosis/symptom? @ -Pneumonia Acute, or Chronic, or Acute on Chronic? @ -Acute Uncomplicated (without systemic symptoms) or Complicated (systemic symptoms)? @ -Complicated Side effects of treatment? @ -None at this time Exacerbation, Progression, or Severe Exacerbation] @ -Not applicable Poses a threat to life or bodily function? @ -Yes This case was discussed in detail with the attending ED physician. Presentation, findings, and treatment plan discussed in detail as well. - Lab Data Result diagrams: 11/20/22 06:54 11/20/22 06:54 Lab Results 11/20/22 11/20/22 11/20/22 Range/Units 06:54 06:54 06:54 WBC 17.8 H (3.8-10.6) k/uL RBC 4.12 (3.80-5.40) m/uL Hgb 10.7 L (11.4-16.0) gm/dL Hct 33.0 L (34.0-46.0) % MCV 80.2 (80.0-100.0) fL MCH 26.0 (25.0-35.0) pg MCHC 32.5 (31.0-37.0) g/dL RDW 13.5 (11.5-15.5) % Plt Count 398 (150-450) k/uL MPV 6.9 Neutrophils % 82 % Lymphocytes % 10 % Monocytes % 6 % Eosinophils % 1 % Basophils % 0 % Neutrophils # 14.5 H (1.3-7.7) k/uL Lymphocytes # 1.7 (1.0-4.8) k/uL Monocytes # 1.0 (0-1.0) k/uL Eosinophils # 0.1 (0-0.7) k/uL Basophils # 0.1 (0-0.2) k/uL Poikilocytosis Slight VBG pH (7.31-7.41) VBG pCO2 (37-51) mmHg VBG HCO3 (24-28) mmol/L Sodium 134 L (137-145) mmol/L Potassium 4.8 (3.5-5.1) mmol/L Chloride 101 (98-107) mmol/L Carbon Dioxide 26 (22-30) mmol/L Anion Gap 7 mmol/L BUN 15 (7-17) mg/dL Creatinine 0.74 (0.52-1.04) mg/dL Est GFR (CKD-EPI)AfAm >90 (>60 ml/min/1.73 sqM) Est GFR (CKD-EPI)NonAf 86 (>60 ml/min/1.73 sqM) Glucose 173 H (74-99) mg/dL Plasma Lactic Acid Homer 1.4 (0.7-2.0) mmol/L Calcium 8.7 (8.4-10.2) mg/dL Total Bilirubin 0.7 (0.2-1.3) mg/dL AST 65 H (14-36) U/L ALT 120 H (4-34) U/L Alkaline Phosphatase 159 H (38-126) U/L Troponin I (0.000-0.034) ng/mL Total Protein 6.4 (6.3-8.2) g/dL Albumin 3.6 (3.5-5.0) g/dL Amylase 45 (30-110) U/L Lipase 76 (23-300) U/L Influenza Type A (PCR) (Not Detectd) Influenza Type B (PCR) (Not Detectd) RSV (PCR) (Not Detectd) SARS-CoV-2 (PCR) (Not Detectd) 11/20/22 11/20/22 11/20/22 Range/Units 06:54 09:51 10:00 WBC (3.8-10.6) k/uL RBC (3.80-5.40) m/uL Hgb (11.4-16.0) gm/dL Hct (34.0-46.0) % MCV (80.0-100.0) fL MCH (25.0-35.0) pg MCHC (31.0-37.0) g/dL RDW (11.5-15.5) % Plt Count (150-450) k/uL MPV Neutrophils % % Lymphocytes % % Monocytes % % Eosinophils % % Basophils % % Neutrophils # (1.3-7.7) k/uL Lymphocytes # (1.0-4.8) k/uL Monocytes # (0-1.0) k/uL Eosinophils # (0-0.7) k/uL Basophils # (0-0.2) k/uL Poikilocytosis VBG pH 7.35 (7.31-7.41) VBG pCO2 46 (37-51) mmHg VBG HCO3 25 (24-28) mmol/L Sodium (137-145) mmol/L Potassium (3.5-5.1) mmol/L Chloride (98-107) mmol/L Carbon Dioxide (22-30) mmol/L Anion Gap mmol/L BUN (7-17) mg/dL Creatinine (0.52-1.04) mg/dL Est GFR (CKD-EPI)AfAm (>60 ml/min/1.73 sqM) Est GFR (CKD-EPI)NonAf (>60 ml/min/1.73 sqM) Glucose (74-99) mg/dL Plasma Lactic Acid Homer (0.7-2.0) mmol/L Calcium (8.4-10.2) mg/dL Total Bilirubin (0.2-1.3) mg/dL AST (14-36) U/L ALT (4-34) U/L Alkaline Phosphatase (38-126) U/L Troponin I <0.012 (0.000-0.034) ng/mL Total Protein (6.3-8.2) g/dL Albumin (3.5-5.0) g/dL Amylase (30-110) U/L Lipase (23-300) U/L Influenza Type A (PCR) Not Detected (Not Detectd) Influenza Type B (PCR) Not Detected (Not Detectd) RSV (PCR) Not Detected (Not Detectd) SARS-CoV-2 (PCR) Not Detected (Not Detectd) - Radiology Data Radiology results: report reviewed, image reviewed Disposition Clinical Impression: Parapneumonic effusion, Pneumonia, Pulmonary nodule, right Disposition: ADMITTED IP TO THIS HOSP
[2022-11-20 07:10] LABS: Basophils # (A) 0.1 k/uL (0-0.2); Basophils % (A) 0 %; Eosinophils # (A) 0.1 k/uL (0-0.7); Eosinophils % (A) 1 %; HGB 10.7 gm/dL (11.4-16.0); Lymphocytes # (A) 1.7 k/uL (1.0-4.8); Lymphocytes % (A) 10 %; MCHC 32.5 g/dL (31.0-37.0); MCV 80.2 fL (80.0-100.0); Mean Platelet Volume 6.9; Monocytes % (A) 6 %; Neutrophils # (A) 14.5 k/uL (1.3-7.7); Neutrophils % (A) 82 %; Platelet Count 398 k/uL (150-450); Poikilocytosis Slight; RBC 4.12 m/uL (3.80-5.40); RDW 13.5 % (11.5-15.5); WBC 17.8 k/uL (3.8-10.6)
[2022-11-20 07:33] LABS: ALT 120 U/L (4-34); AST 65 U/L (14-36); African American GFR (CKD) >90 (>60 ml/min/1.73 sqM); Albumin 3.6 g/dL (3.5-5.0); Alkaline Phosphatase 159 U/L (38-126); Amylase 45 U/L (30-110); Anion Gap 7 mmol/L; Blood Urea Nitrogen 15 mg/dL (7-17); Calcium 8.7 mg/dL (8.4-10.2); Carbon Dioxide 26 mmol/L (22-30); Chloride 101 mmol/L (98-107); Glucose 173 mg/dL (74-99); Lipase 76 U/L (23-300); Non-African American GFR(CKD) 86 (>60 ml/min/1.73 sqM); Potassium 4.8 mmol/L (3.5-5.1); Sodium 134 mmol/L (137-145); Total Bilirubin 0.7 mg/dL (0.2-1.3); Total Protein 6.4 g/dL (6.3-8.2)
--- NOTE | 2022-11-20 08:09 | US ---
EXAMINATION TYPE: US gallbladder DATE OF EXAM: 11/20/2022 COMPARISON: Abdominal ultrasound 06/02/2012 CLINICAL HISTORY: Epigastric pain. Left flank pain per patient TECHNIQUE: Multiple sonographic images of the right upper quadrant are obtained. FINDINGS: EXAM MEASUREMENTS: Liver Length: 19.7 cm Gallbladder Wall: 0.2 cm CBD: 0.8 cm Right Kidney: 10.7 x 4.8 x 3.9 cm PROC TECH NOTES:Extremely limited due to patient body habitus. Patient is unable to reposition for better imaging or hold breath Pancreas: Obscured by bowel gas Liver: Increased attenuation, decreased visualization of vessels suggestive of fatty infiltrate. En larged in size. Echogenic. Coarse. Limited visualization due to bowel gas. Gallbladder: Limited visualization of GB fundal region. Evidence for sonographic Woodson's sign: neg CBD: wnl Right Kidney: No hydronephrosis or masses seen Pancreas is obscured due to overlying bowel gas. Increased attenuation of the liver without definitiv e focal lesion. The liver is enlarged. No gallbladder wall thickening, pericholecystic fluid, shadowi ng calculi demonstrated. Common bile duct is within normal limits. The right kidney is within normal limits without evidence of hydronephrosis, shadowing calculus, contour deforming solid mass. IMPRESSION: Limited examination due to patient's body habitus. 1. Hepatomegaly with hepatic steatosis.
--- NOTE | 2022-11-20 09:19 | CT ---
EXAMINATION TYPE: CT abdomen pelvis w con DATE OF EXAM: 11/20/2022 COMPARISON: NONE HISTORY: 67-year-old female LUQ and epigastric abdominal pain TECHNIQUE: Contiguous axial scanning of the abdomen and pelvis following administration of 100 ml Iso winston 300 IV contrast. Delayed images through the kidneys and coronal/sagittal reconstructions perform ed. CT DLP: 1740.4 mGycm Automated exposure control for dose reduction was used. FINDINGS: Heart normal size without pericardial effusion. There is a moderate to large hiatal hernia involving two thirds of the stomach in the lower chest. There is small to moderate pleural effusion n oted at the left base with some scalloped margins suggesting areas of loculation. Patchy consolidatio n air space disease, suspected pneumonia at the left base. Extensive nodularity and tree-in-bud opaci ties basilar right lower lobe. No focal liver lesion. No biliary ductal dilatation. Portal venous system is patent. Adrenal glands, kidneys, common pancreas within normal limits. There is a small 1.5 cm diverticulum o f the second portion of the duodenum projecting at the pancreatic head region. Gallbladder measures upper limits of normal at 3.8 cm wide. There is a small to moderate-sized periumbilical hernia measuring 5.0 cm wide. No dilated small bowel, free fluid, or free air. No mesenteric or retroperitoneal lymphadenopathy. Normal appendix. There is moderate stool burden. Left-sided colonic diverticulosis. Redundant sigmoid colon extending up anteriorly to the epigastrium. No pericolonic inflammatory change seen. Bladder partially distended Uterus anteverted. Small bilateral ovaries. No abnormal fluid collection in the pelvis or pelvic lymp hadenopathy. Bones: Moderate degenerative change of both hips. Vascular disease. Degenerative grade 1 anterolisthe sis L4-L5 and L5-S1. IMPRESSION: 1. SMALL TO MODERATE LEFT PLEURAL EFFUSION. SCALLOPED MARGINS SUGGESTS AREAS OF LOCULATION. 2. EXTENSIVE CONSOLIDATION AT THE LEFT BASE. CORRELATE FOR PNEUMONIA AND PARAPNEUMONIC EFFUSION AND C ORRELATE TO EXCLUDE COMPLICATED EFFUSION OR DEVELOPING EMPYEMA GIVEN THE LOCULATION. 3. TREE-IN-BUD NODULARITY AT THE RIGHT BASE COULD REFLECT ASPIRATION OR BRONCHIOLITIS. RECESS AT FOLL OW-UP TO EXCLUDE ANY SUSPICIOUS PULMONARY NODULES. 4. SMALL TO MODERATE-SIZED FAT-CONTAINING UMBILICAL HERNIA MEASURING 5.0 CM. IN ADDITION, THERE IS A MODERATE TO LARGE HIATAL HERNIA INVOLVING TWO THIRDS OF THE STOMACH IN THE LOWER CHEST. 5. LEFT-SIDED COLONIC DIVERTICULOSIS. REDUNDANT SIGMOID COLON. MODERATE STOOL BURDEN.
[2022-11-20] MEDS ORDERED: RX INFO: IV CONTRAST WAS GIVEN 1 EACH MISC MISCELLANE PRN (09:33)
[2022-11-20] MEDS ORDERED: PNEUMONIA PROTOCOL UTILIZED 1 EACH MISC PO PRN (09:49)
[2022-11-20] MEDS ORDERED: AZITHROMYCIN 500 MG in SODIUM CHLORIDE 0.9% 250 ML IVPB STA (09:49)
[2022-11-20] MEDS ORDERED: metroNIDAZOLE-NS PMX 500 MG in SALINE 1 100ML.BAG IVPB SCH (10:00)
--- NOTE | 2022-11-20 10:29 | CT ---
EXAMINATION TYPE: CT chest wo con DATE OF EXAM: 11/20/2022 COMPARISON: 11/18/2020 HISTORY: 67-year-old female abnormal CT abdomen, correlate for pneumonia TECHNIQUE: Contiguous axial scanning of the chest without IV contrast. Coronal and sagittal reconstru ctions performed. CT DLP: 586.8 mGycm Automated exposure control for dose reduction was used. FINDINGS: Heart normal size without pericardial effusion. Aorta normal caliber with bovine configuration to the aortic arch. Scattered nonenlarged mediastinal lymph nodes are present. No thoracic lymphadenopathy by CT size cri teria. Moderate to large hiatal hernia involving two thirds of the stomach in the lower chest described on t he CT abdomen report. Mildly enlarged caliber to the main right and left pulmonary arteries up to 2.7 cm suggesting underly ing pulmonary hypertension. Nodularity and tree-in-bud opacity right lower lobe, axial image 26. Additional similar nodularity posterior right upper lobe. Mild emphysematous change. Prominent consolidation left base. Consolidation extends up to the left infrahilar region. Some concu rrent nodularity is present in the left midlung, axial image 21. [id number]-kv-ribyvope sized effusion with areas of loculation given scalloped contours measuring up to 8. 2 cm at the posterior left base. Smaller pockets measuring 6.4 cm and 3.7 cm are present at the poste rior and lateral left midlung, respectively. Some layering pleural fluid extends up to the left apex. Abdomen reported separately. Bones: Additional lower thoracic spine. IMPRESSION: 1. COPD WITH MILD EMPHYSEMA AND PULMONARY ARTERIAL HYPERTENSION. 2. SMALL TO MODERATE LEFT PLEURAL EFFUSION WITH AREAS OF LOCULATION. GIVEN THE EXTENSIVE AIRSPACE DIS EASE AT THE LEFT BASE AND LEFT INFRAHILAR REGION, CORRELATE FOR COMPLICATED PARAPNEUMONIC EFFUSION OR EARLY EMPYEMA. 3. ADDITIONAL NODULARITY AND TREE-IN-BUD OPACITY DEPENDENTLY THROUGHOUT THE RIGHT LUNG AND ALSO AT TH E LEFT MIDLUNG LIKELY ON AN INFECTIOUS/INFLAMMATORY BASIS. FOLLOW-UP AFTER TREATMENT TO ENSURE CLEARA NCE AND EXCLUDE ANY SUSPICIOUS UNDERLYING PULMONARY NODULES. 4. MODERATE TO LARGE HIATAL HERNIA DESCRIBED ON THE CT ABDOMEN REPORT.
[2022-11-20 10:42] LABS: VBG PH 7.35 (7.31-7.41)
[2022-11-20] MEDS ORDERED: KETOROLAC 15 MG/ML 1 ML VIAL IVP PRN (11:24)
[2022-11-20] MEDS ORDERED: ONDANSETRON 4 MG/2 ML VIAL IVP PRN (11:24)
[2022-11-20] MEDS ORDERED: IBUPROFEN 400 MG TAB PO PRN (11:24)
[2022-11-20] MEDS ORDERED: NALOXONE 0.4 MG/ML 1 ML VIAL IV PRN (11:24)
[2022-11-20] MEDS ORDERED: ALBUTEROL NEBULIZED 2.5 MG/3 ML INHALATION PRN (13:14)
--- NOTE | 2022-11-20 14:23 | P.HPIM ---
History of Present Illness H&P Date: 11/20/22 Chief Complaint: Chest pain 67 year old woman with history of COPD with pulmonary hypertension, HTN, HLD, DM, hypothyroidism, bipolar disorder, restless leg syndrome presented for evaluation of chest pain. Patient says that she started having difficulty breathing with pain on inspiration. She's had this for quite some time but got worse in the last few days. She also has generalized aches in her hips and her abdomen. She reports feeling feverish with chills, sometimes shakes. She denies nausea, vomiting, elevations, sick, presyncope, cough, constipation, dysuria, seizure, numbness/weakness of her tremors. She does report some intermittent diarrhea. In the emergency room, patient is afebrile, 129/86, heart rate 93, 92% on room air. CBC shows leukocytosis to 17.8, anemia down to 10.7. Chemistries show a sodium of 134, otherwise unremarkable. Liver function tests show an elevated AST at 65, elevated ALT at 120, elevated alkaline phosphatase 159, otherwise unremarkable. Initial troponin was less than 0.012. In fluids A, B, RSV, Covid are all negative. VBG shows a pH of 7.35, pCO2 of 46. Gallbladder ultrasound shows hepatomegaly with hepatic steatosis. CT of the abdomen/pelvis shows small to moderate fat-containing umbilical hernia, moderate to large hiatal hernia involving two thirds of the stomach and lower chest, left-sided colonic divertic ulosis with a redundant sigmoid colon. CT of the chest shows left pleural effusion with evidence of loculation, extensive left base consolidation concerning for pneumonia with parapneumonic effusion versus empyema, tree and bud nodularity at the right base. EKG shows sinus rhythm with a normal axis, no evidence of ischemia. The case was discussed with the ER provider, decision was made to admit the patient for sepsis with pneumonia. Patient had received ceftriaxone/azithromycin, metronidazole in the emergency room. Also received a dose of Dilaudid, Toradol, Zofran, and a 1 L fluid bolus while in the ER. All Systems reviewed and pertinent positives and negatives noted in HPI, all other symptoms are negative Gen: in no apparent distress, resting comfortably in bed Eyes: PERRL, no scleral injection or icterus HENT: normocephalic, atraumatic, good hearing acuity, moist mucous membranes Neck: no tracheal deviation, full range of motion Resp: good air exchange, breathing comfortably with no accessory muscle use, no tactile fremitus, diminished breath sounds in the left lower base CVS: good distal perfusion x 4, trace bilateral pitting edema, regular rate and rhythm without appreciable murmurs GI: soft, NTTP, ND, no hepatosplenomegaly : no suprapubic tenderness, no CVAT, alcala catheter not present MSK: no clubbing, no cyanosis, no noted contractures of extremities Skin: no noted rashes, petechiae; temperature of skin is appropriate Neuro: moving all extremities without signs of weakness, CN II-XII intact Psych: cooperative, euthymic mood, insight and judgment intact Labs and imaging as above Assessment/plan: Sepsis with community-acquired pneumonia Parapneumonic effusion versus empyema -Admit to inpatient, telemetry -Ceftriaxone/azithromycin for anticipated 7 days -Follow blood culture, sputum culture -Follow pro-calcitonin -Follow CRP -Pulmonology consult for empyema -Morphine when necessary for pain control -Bowel regimen -Can discontinue the Flagyl COPD with pulmonary hypertension Hypertension Hyperlipidemia Diabetes type 2 Hypothyroidism Bipolar disorder Restless leg syndrome -Home medications reviewed and reconciled Patient is DO NOT RESUSCITATE/do not DVT prophylaxis with heparin 3 times a day Past Medical History Past Medical History: Chest Pain / Angina, Diabetes Mellitus, Eye Disorder, GERD/Reflux, Hyperlipidemia, Hypertension, Memory Impairment, Osteoarthritis (OA), Seizure Disorder, Sleep Apnea/CPAP/BIPAP, Thyroid Disorder Additional Past Medical History / Comment(s): NIDDM type II, neuropathy bilateral legs/feet, BETINA/does not use device, short term memory issues, past seizure many years ago associated with a medication, hypothyroid, sinus issues, varicose vein, stress incontinence/urgency, frequent UTIs, RLS, lightheaded/dizzy when rising at times, bilateral eye macular degeneration, hypoothyroid. Last Myocardial Infarction Date:: 2016 History of Any Multi-Drug Resistant Organisms: None Reported Past Surgical History: Section Additional Past Surgical History / Comment(s): D&C with hysteroscopy/colposcopy, surgery for deviated septum Past Anesthesia/Blood Transfusion Reactions: Motion Sickness Past Psychological History: Anxiety, Bipolar, Depression, Schizoaffective Disorder Additional Psychological History / Comment(s): Pt resides in her own home. She goes to [facility] during the daytime. Her daughter checks on her twice a day. Pt uses a cane or walker. [facility] manages her medications. Smoking Status: Never smoker Past Alcohol Use History: None Reported Past Drug Use History: None Reported - Past Family History Father Family Medical History: CVA/TIA Additional Family Medical History / Comment(s): SMOKED AND ABUSED ETOH- AGE 78- FROM STROKE Mother Additional Family Medical History / Comment(s): CRONIC BRONCHITIS.REMOVED PART OF ONE LUNG d/t the bronchitis infection Medications and Allergies Home Medications Medication Instructions Recorded Confirmed Type Levothyroxine Sodium [Synthroid] 50 mcg PO DAILY 06/01/15 11/20/22 History metFORMIN HCL [Glucophage] 500 mg PO BID 12/15/17 11/20/22 History Atorvastatin [Lipitor] 20 mg PO HS 03/07/18 11/20/22 History rOPINIRole HCL [Requip] 0.5 mg PO HS 06/09/18 11/20/22 History lamoTRIgine [LaMICtal] 200 mg PO DAILY 04/06/19 11/20/22 History [place] Carbonate 600 mg PO DAILY 12/22/20 11/20/22 History atenoloL 12.5 mg PO DAILY 12/22/20 11/20/22 History Omeprazole 20 mg PO DAILY 01/23/21 11/20/22 History Ascorbic Acid [Vitamin C] 500 mg PO DAILY 10/14/22 11/20/22 History Cholecalciferol [Vitamin D3 (25 50 mcg PO DAILY 10/14/22 11/20/22 History Mcg = 1000 Iu)] OLANZapine [ZyPREXA] 5 mg PO HS #30 tab 10/20/22 11/20/22 Rx PARoxetine [Paxil] 10 mg PO TID tab 10/20/22 11/20/22 Rx Albuterol Sulfate [Ventolin HFA] 2 puff INHALATION RT-QID PRN 11/20/22 11/20/22 History Aspirin EC [Ecotrin Low Dose] 81 mg PO DAILY 11/20/22 11/20/22 History Capsicum Oleoresin [Dermacinrx 1 applic TOPICAL TID PRN 11/20/22 11/20/22 History Circata] LORazepam [Ativan] 0.5 mg PO QID PRN 11/20/22 11/20/22 History Levocetirizine Dihydrochloride 5 mg PO DAILY 11/20/22 11/20/22 History [Xyzal] Meloxicam [Mobic] 15 mg PO DAILY 11/20/22 11/20/22 History Oxybutynin Chloride [Ditropan] 5 mg PO BID 11/20/22 11/20/22 History Trihexyphenidyl [Artane] 2 mg PO QID 11/20/22 11/20/22 History Allergies Allergy/AdvReac Type Severity Reaction Status Date / Time amoxicillin Allergy Rash/Hives Verified 11/20/22 10:22 codeine Allergy Unknown Verified 11/20/22 10:22 Sulfa (Sulfonamide Allergy Unknown Verified 11/20/22 10:22 Antibiotics) sulfamethoxazole Allergy Rash/Hives Verified 11/20/22 10:22 [From Bactrim] thioridazine [From Mellaril] Allergy Unknown Verified 11/20/22 10:22 trimethoprim [From Bactrim] Allergy Rash/Hives Verified 11/20/22 10:22 Physical Exam Osteopathic Statement: *. No significant issues noted on an osteopathic struct ural exam other than those noted in the History and Physical/Consult. Vitals: Vital Signs Temp Pulse Pulse Resp BP BP Pulse Ox 11/20/22 13:22 98.8 F 104 H 18 122/73 96 11/20/22 12:33 97.4 F L 109 H 18 147/82 97 11/20/22 11:00 88 11/20/22 10:00 80 107/57 95 11/20/22 09:00 93 129/86 92 L 11/20/22 08:00 84 115/72 97 11/20/22 07:04 97 11/20/22 06:39 99.7 F H 98 18 140/91 91 L Intake and Output 11/19/22 11/20/22 11/20/22 22:59 06:59 14:59 Other: Weight 97.522 kg 97.522 kg Results CBC & Chem 7: 11/20/22 06:54 11/20/22 06:54 Labs: Abnormal Lab Results - Last 24 Hours (Table) 11/20/22 11/20/22 Range/Units 06:54 06:54 WBC 17.8 H (3.8-10.6) k/uL Hgb 10.7 L (11.4-16.0) gm/dL Hct 33.0 L (34.0-46.0) % Neutrophils # 14.5 H (1.3-7.7) k/uL Sodium 134 L (137-145) mmol/L Glucose 173 H (74-99) mg/dL AST 65 H (14-36) U/L ALT 120 H (4-34) U/L Alkaline Phosphatase 159 H (38-126) U/L Thrombosis Risk Factor Assmnt - Choose All That Apply Any of the Below Risk Factors Present?: Yes Each Factor Represents 1 point: Abnormal pulmonary function (COPD), Obesity (BMI >25) Other Risk Factors: Yes Each Risk Factor Represents 2 Points: Age 61-74 years Other congenital or acquired thrombophilia - If yes, enter type in comment: No Thrombosis Risk Factor Assessment Total Risk Factor Score: 4 Thrombosis Risk Factor Assessment Level: Moderate Risk
[2022-11-20] MEDS: MORPHINE SULFATE 2 MG/ML SYRINGE IVP PRN ×2 (15:46→21:49)
--- NOTE | 2022-11-20 16:29 | P.CON ---
Consult Note - . Consult date: 11/20/22 Assessment/Plan:: Patient refused procedure. Referring clinician notified
[2022-11-20] MEDS: PARoxetine 10 MG TAB PO SCH ×2 (16:41→21:47)
--- NOTE | 2022-11-20 17:03 | P.CNPUL ---
History of Present Illness Consult date: 11/20/22 Requesting physician: Eileen Hewitt Reason for consult: pneumonia Chief complaint: Left chest pain radiating to ipsilateral shoulder History of present illness: I'm seeing this patient today 11/20/2022 in consultation for a left lower lobe pneumonia. This 67-year-old female with a pertinent medical history of diabetes mellitus, hypertension, hyperlipidemia, hypothyroidism, obstructive sleep apnea with CPAP, never smoker, macular degeneration, anxiety, bipolar, schizoaffective disorder. Patient presented to the emergency department on November 20 for the chief complaint of abdominal pain over the last 3 days that radiated to the ipsilateral shoulder and troubles walking. Patient also had some associated nausea and vomiting. patient denies change in bowel habits, blood in stool, hematemesis, fever, cough, hemoptysis. These findings prompted a workup with an abdominal ultrasound which revealed hepatomegaly with hepatic steatosis. enhanced CT of abdomen and pelvis which showed small to moderate left pleural effusion with scalped margins suggesting areas of loculation, extensive consolidation of the left base, tree-in-bud nodularity at the right base which could reflect aspiration or bronchiolitis, a large hiatal hernia, and umbilical hernia measuring 5 cm, left-sided colonic diverticulosis without diverticulitis, and a moderate stool burden. a chest CTnonenhanced showed COPD changes with mild emphysema and pulmonary arterial hypertension, small to moderate left pleural effusion with loculation redemonstrated, extensive left basilar and left infrahilar airspace diseasethat could correlate with a peripneumonic Effusion or early empyema, additional nodularity entry and bilateral obesity throughout the right lung, and a moderate to large hiatal hernia. patient's CBC showed some leukocytosis with a WBC count of 17.8, hemoglobin 10.7, hematocrit 33, platelets 398,000. Patient's BMP shows a sodium of 134, potassium 4.8, chloride 101, serum CO2 26, BUN 15, creatinine 0.74, glucose 173. There is some mild bleeding elevated LFTs. Procalcitonin was moderately high 0.18. Patient was negative for influenza, RSV, coronavirus. patient is currently sitting up in bed, on room air, and no acute distress. she is maintained on Ventolin nebulizations, empiric azithromycin and ceftriaxone. The patient does have some tardive dyskinesia and lip smacking on examination and she is on multiple different antipsychotic medications. Patient is afebrile. Vital signs are stable. Review of Systems REVIEW OF SYSTEMS: CONSTITUTIONAL: Denies any recent significant weight loss or weight gain. EYES: Denies change in vision. EARS, NOSE, MOUTH, THROAT: Denies headaches, denies sore throat. CARDIOVASCULAR: Denies chest pain, palpitations or syncopal episodes. RESPIRATORY: Denies shortness of breath, cough, congestion or hemoptysis. admits some left-sided chest pain that radiates ipsilateral shoulder GASTROINTESTINAL: please see HPI GENITOURINARY: Denies hematuria, denies infections. MUSKULOSKELETAL: Denies pain, denies swelling. INTEGUMENTARY: Denies rash, denies eczema. NEUROLOGICAL: Denies recent memory loss, no recent seizure activity. PSYCHIATRIC: Denies anxiety, denies depression. HEMATOLOGIC/LYMPHATIC: Denies anemia, denies enlarged lymph nodes. Past Medical History Past Medical History: Chest Pain / Angina, Diabetes Mellitus, Eye Disorder, GERD/Reflux, Hyperlipidemia, Hypertension, Memory Impairment, Osteoarthritis (OA), Seizure Disorder, Sleep Apnea/CPAP/BIPAP, Thyroid Disorder Additional Past Medical History / Comment(s): NIDDM type II, neuropathy bilateral legs/feet, BETINA/does not use device, short term memory issues, past seizure many years ago associated with a medication, hypothyroid, sinus issues, varicose vein, stress incontinence/urgency, frequent UTIs, RLS, lightheaded/dizzy when rising at times, bilateral eye macular degeneration, hypoothyroid. Last Myocardial Infarction Date:: 2016 History of Any Multi-Drug Resistant Organisms: None Reported Past Surgical History: Section Additional Past Surgical History / Comment(s): D&C with hysteroscopy/colposcopy, surgery for deviated septum Past Anesthesia/Blood Transfusion Reactions: Motion Sickness Past Psychological History: Anxiety, Bipolar, Depression, Schizoaffective Disorder Additional Psychological History / Comment(s): Pt resides in her own home. She goes to [employer] during the daytime. Her daughter checks on her twice a day. Pt uses a cane or walker. [facility] manages her medications. Smoking Status: Never smoker Past Alcohol Use History: None Reported Past Drug Use History: None Reported - Past Family History Father Family Medical History: CVA/TIA Additional Family Medical History / Comment(s): SMOKED AND ABUSED ETOH- AGE 78- FROM STROKE Mother Additional Family Medical History / Comment(s): CRONIC BRONCHITIS.REMOVED PART OF ONE LUNG d/t the bronchitis infection Medications and Allergies Home Medications Medication Instructions Recorded Confirmed Type Levothyroxine Sodium [Synthroid] 50 mcg PO DAILY 06/01/15 11/20/22 History metFORMIN HCL [Glucophage] 500 mg PO BID 12/15/17 11/20/22 History Atorvastatin [Lipitor] 20 mg PO HS 03/07/18 11/20/22 History rOPINIRole HCL [Requip] 0.5 mg PO HS 06/09/18 11/20/22 History lamoTRIgine [LaMICtal] 200 mg PO DAILY 04/06/19 11/20/22 History [place] Carbonate 600 mg PO DAILY 12/22/20 11/20/22 History atenoloL 12.5 mg PO DAILY 12/22/20 11/20/22 History Omeprazole 20 mg PO DAILY 01/23/21 11/20/22 History Ascorbic Acid [Vitamin C] 500 mg PO DAILY 10/14/22 11/20/22 History Cholecalciferol [Vitamin D3 (25 50 mcg PO DAILY 10/14/22 11/20/22 History Mcg = 1000 Iu)] OLANZapine [ZyPREXA] 5 mg PO HS #30 tab 10/20/22 11/20/22 Rx PARoxetine [Paxil] 10 mg PO TID tab 10/20/22 11/20/22 Rx Albuterol Sulfate [Ventolin HFA] 2 puff INHALATION RT-QID PRN 11/20/22 11/20/22 History Aspirin EC [Ecotrin Low Dose] 81 mg PO DAILY 11/20/22 11/20/22 History Capsicum Oleoresin [Dermacinrx 1 applic TOPICAL TID PRN 11/20/22 11/20/22 History Circata] LORazepam [Ativan] 0.5 mg PO QID PRN 11/20/22 11/20/22 History Levocetirizine Dihydrochloride 5 mg PO DAILY 11/20/22 11/20/22 History [Xyzal] Meloxicam [Mobic] 15 mg PO DAILY 11/20/22 11/20/22 History Oxybutynin Chloride [Ditropan] 5 mg PO BID 11/20/22 11/20/22 History Trihexyphenidyl [Artane] 2 mg PO QID 11/20/22 11/20/22 History Allergies Allergy/AdvReac Type Severity Reaction Status Date / Time amoxicillin Allergy Rash/Hives Verified 11/20/22 10:22 codeine Allergy Unknown Verified 11/20/22 10:22 Sulfa (Sulfonamide Allergy Unknown Verified 11/20/22 10:22 Antibiotics) sulfamethoxazole Allergy Rash/Hives Verified 11/20/22 10:22 [From Bactrim] thioridazine [From Mellaril] Allergy Unknown Verified 11/20/22 10:22 trimethoprim [From Bactrim] Allergy Rash/Hives Verified 11/20/22 10:22 Physical Exam Vitals: Vital Signs Temp Pulse Pulse Resp BP BP Pulse Ox 11/20/22 15:44 96 11/20/22 14:30 105 H 94 L 11/20/22 13:22 98.8 F 104 H 18 122/73 96 11/20/22 12:33 97.4 F L 109 H 18 147/82 97 11/20/22 11:00 88 11/20/22 10:00 80 107/57 95 11/20/22 09:00 93 129/86 92 L 11/20/22 08:00 84 115/72 97 11/20/22 07:04 97 11/20/22 06:39 99.7 F H 98 18 140/91 91 L Intake and Output 11/20/22 11/20/22 11/20/22 06:59 14:59 22:59 Other: Weight 97.522 kg 97.522 kg GENERAL EXAM: Alert, active, comfortable in no apparent distress. HEAD: Normocephalic and atraumatic EYES: Normal reaction of pupils, equal size. NOSE: Clear with pink turbinates. THROAT: No erythema or exudates. NECK: No masses, no JVD. CHEST: No chest wall deformity. LUNGS: Equal air entry with no crackles, wheeze, rhonchi. On room air. Diminishe d lung sounds at the left base. No conversational dyspnea or accessory muscle use. CVS: S1 and S2 normal with no audible murmur, regular rhythm. ABDOMEN: No hepatosplenomegaly, normal bowel sounds, no guarding or rigidity. pneumonia SPINE: No scoliosis or deformity SKIN: No rashes CENTRAL NERVOUS SYSTEM: No focal deficits, tone is normal in all 4 extremities. EXTREMITIES: There is no peripheral edema, clubbing, or cyanosis. Peripheral pulses are intact. Results - Laboratory Findings CBC and BMP: 11/20/22 06:54 11/20/22 06:54 Abnormal lab findings: Abnormal Labs 11/20/22 11/20/22 06:54 06:54 WBC 17.8 H Hgb 10.7 L Hct 33.0 L Neutrophils # 14.5 H Sodium 134 L Glucose 173 H AST 65 H ALT 120 H Alkaline Phosphatase 159 H - Diagnostic Findings CT scan - chest: image reviewed Assessment and Plan Assessment: community-acquired pneumonia. Will continue empiric antibiotics in the form of azithromycin and Rocephin Loculated left pleural effusion. Will consult IR for pigtail catheter placement to drain the effusion Suspect COPD based on Chest CT findings, however, patient is a lifelong non- smoker. On room air. Continue PRN ventolin inhaler pulmonary hypertension Hypertension Hyperlipidemia Diabetes mellitus type 2 non-insulin dependent Hypothyroidism Bipolar disorder Restless leg syndrome Plan: Patients medications, Chest Ct, Abdominal CT, and labs were reviewed Continue empiric Rocephin and Azithromycin We consulted IR for Pigtail catheter placement. I did receive a call from IR, indicating that patient ultimately refused the procedure at this time. She would like to talk to her daughter first. on room air Continue ventolin inhaler as needed. we willl continue to follow. I have personally seen and examined the patient, performed the documentation and the assessment and plan as written. Number of minutes spent on the visit: 20. 5 Time with Patient: Greater than 30
[2022-11-20 17:44] LABS: Glucose,Whole Blood 146 mg/dL (70-110)
[2022-11-20] MEDS: TRIHEXYPHENIDYL 2 MG TAB PO SCH ×2 (17:54→21:46)
[2022-11-20] MEDS: INSULIN ASPART (NovoLOG) 100 UNIT/ML VIAL SQ SCH (17:54)
[2022-11-20] MEDS: OLANZapine 5 MG TAB PO SCH (21:46)
[2022-11-20] MEDS: ATORVASTATIN 20 MG TAB PO SCH (21:46)
[2022-11-20] MEDS: OXYBUTYNIN CHLORIDE 5 MG TAB PO SCH (21:46)
[2022-11-21] MEDS: LEVOTHYROXINE 50 MCG TAB PO SCH (05:20)
--- NOTE | 2022-11-21 07:29 | XR ---
EXAMINATION TYPE: XR chest 2V DATE OF EXAM: 11/21/2022 7:22 AM COMPARISON: Chest radiographs from 10/14/2022, CT chest 11/20/2021 TECHNIQUE: XR chest 2V Frontal and lateral views of the chest. CLINICAL INDICATION:Female, 67 years old with history of pneumonia; FINDINGS: Lungs/Pleura: Haziness to the left mid and lower lung as seen on prior CT. Pulmonary vascularity: Unremarkable. Heart/mediastinum: Cardiomediastinal silhouette is partially obscured due to overlying and adjacent o pacities. Musculoskeletal: No acute osseous pathology. IMPRESSION: Generalized haziness to the left mid and lower lung consistent with loculated pleural effusion and ai rspace disease on prior CT.
[2022-11-21 07:30] LABS: Glucose,Whole Blood 200 mg/dL (70-110)
[2022-11-21 08:33] LABS: HCT 34.9 % (37.2-46.3); HGB 10.7 g/dL (12.0-15.0); MCH 25.8 pg (27.0-32.0); MCHC 30.7 g/dL (32.0-37.0); MCV 84.3 fL (80.0-97.0); Mean Platelet Volume 9.2 fL (9.5-12.2); NRBC Per 100 WBC 0 /100 WBCS (0.0-0.0); Platelet Count 422 X 10*3/uL (140-440); RBC 4.14 X 10*6/uL (4.10-5.20); RDW 13.7 % (11.5-14.5); WBC 27.32 X 10*3/uL (4.50-10.00)
[2022-11-21 08:43] LABS: African American GFR (CKD) 86.4 (60.0-200.0); BUN/Creat Ratio 10.69 Ratio (12.00-20.00); Blood Urea Nitrogen 8.8 mg/dL (9.0-27.0); C Reactive Protein 34.9 mg/dL (0.00-0.80); Calcium 8.8 mg/dL (8.7-10.3); Carbon Dioxide 23.7 mmol/L (20.0-27.5); Magnesium 1.8 mg/dL (1.5-2.4); Non-African American GFR(CKD) 74.5 (60.0-200.0); Potassium 4.3 mmol/L (3.5-5.5)
[2022-11-21] MEDS ORDERED: NON FORMULARY DRUG (Omeprazole [Omeprazole] 20 MG Capsule.Dr) PO SCH (09:00)
[2022-11-21] MEDS: INSULIN ASPART (NovoLOG) 100 UNIT/ML VIAL SQ SCH ×3 (09:03→18:10)
[2022-11-21] MEDS: atenoloL 25 MG TAB PO SCH (09:04)
[2022-11-21] MEDS: ASPIRIN 81 MG PO SCH (09:04)
[2022-11-21] MEDS: ASCORBIC ACID 500 MG TAB PO SCH (09:04)
[2022-11-21] MEDS: LORATADINE 10 MG TAB PO SCH (09:05)
[2022-11-21] MEDS: MELOXICAM 7.5 MG TAB PO SCH (09:05)
[2022-11-21] MEDS: CHOLECALCIFEROL 25 MCG (1000 IU) TABLET PO SCH (09:05)
[2022-11-21] MEDS: PARoxetine 10 MG TAB PO SCH ×3 (09:06→20:46)
[2022-11-21] MEDS: PANTOPRAZOLE 40 MG/10 ML VIAL IV SCH (09:06)
[2022-11-21] MEDS: lamoTRIgine 100 MG TAB PO SCH (09:06)
[2022-11-21] MEDS: OXYBUTYNIN CHLORIDE 5 MG TAB PO SCH ×2 (09:07→20:46)
[2022-11-21] MEDS: TRIHEXYPHENIDYL 2 MG TAB PO SCH ×4 (09:07→20:46)
[2022-11-21] MEDS: LITHIUM CARBONATE 300 MG CAP PO SCH (09:08)
[2022-11-21 09:09] LABS: Basophils # (A) 0.12 X 10*3/uL (0.00-0.10); Basophils % (A) 0.4 %; Eosinophils # (A) 0.22 X 10*3/uL (0.04-0.35); Eosinophils % (A) 0.8 %; Immature Grans, Automated 0.5 %; Lymphocytes # (A) 1.86 X 10*3/uL (0.90-5.00); Lymphocytes % (A) 6.8 %; Microcytosis (M) 2+; Monocytes # (A) 1.98 X 10*3/uL (0.20-1.00); Monocytes % (A) 7.2 %; Neutrophils % (A) 84.3 %
--- NOTE | 2022-11-21 11:22 | P.PN ---
Subjective Progress Note Date: 11/21/22 I'm seeing this patient today 11/20/2022 in consultation for a left lower lobe pneumonia. This 67-year-old female with a pertinent medical history of diabetes mellitus, hypertension, hyperlipidemia, hypothyroidism, obstructive sleep apnea with CPAP, never smoker, macular degeneration, anxiety, bipolar, schizoaffective disorder. Patient presented to the emergency department on November 20 for the chief complaint of abdominal pain over the last 3 days that radiated to the ipsilateral shoulder and troubles walking. Patient also had some associated nausea and vomiting. patient denies change in bowel habits, blood in stool, hematemesis, fever, cough, hemoptysis. These findings prompted a workup with an abdominal ultrasound which revealed hepatomegaly with hepatic steatosis. enhanced CT of abdomen and pelvis which showed small to moderate left pleural effusion with scalped margins suggesting areas of loculation, extensive consolidation of the left base, tree-in-bud nodularity at the right base which could reflect aspiration or bronchiolitis, a large hiatal hernia, and umbilical hernia measuring 5 cm, left-sided colonic diverticulosis without diverticulitis, and a moderate stool burden. a chest CTnonenhanced showed COPD changes with mild emphysema and pulmonary arterial hypertension, small to moderate left pleural effusion with loculation redemonstrated, extensive left basilar and left infrahilar airspace diseasethat could correlate with a peripneumonic Effusion or early empyema, additional nodularity entry and bilateral obesity throughout the right lung, and a moderate to large hiatal hernia. patient's CBC showed some leukocytosis with a WBC count of 17.8, hemoglobin 10.7, hematocrit 33, platelets 398,000. Patient's BMP shows a sodium of 134, potassium 4.8, chloride 101, serum CO2 26, BUN 15, creatinine 0.74, glucose 173. There is some mild bleeding elevated LFTs. Procalcitonin was moderately high 0.18. Patient was negative for influenza, RSV, coronavirus. patient is currently sitting up in bed, on room air, and no acute distress. she is maintained on Ventolin nebulizations, empiric azithromycin and ceftriaxone. The patient does have some tardive dyskinesia and lip smacking on examination and she is on multiple different antipsychotic medications. Patient is afebrile. Vital signs are stable. The patient is seen today 11/21/2022 in follow-up on the regular medical floor. She is currently resting comfortably in bed. Awake and alert in no acute distre ss. She is maintaining O2 saturations in the 90s on room air. We had recommended a pigtail catheter insertion for her loculated pleural effusion on the left chest however when she got down to the Department she declined to have a catheter placed. Her daughter is aware. She may reconsider and maybe interventional radiology to place a catheter on Wednesday11/23/2022. Today's chest x-ray reveals generalized haziness to the left mid and lower lung consistent with loculated pleural effusion and airspace disease. White count 27.3. Hemoglobin 10.7. Sodium 135. Potassium 4.3. BUN 9. Creatinine 0.8. Glucose 200. C-reactive protein 34.9. She remains on ceftriaxone and azithromycin. Objective - Vital Signs Vital signs: Vital Signs Temp 97.7 F 11/21/22 07:23 Pulse 117 H 11/21/22 07:23 Resp 18 11/21/22 07:23 BP 144/85 11/21/22 07:23 Pulse Ox 90 L 11/21/22 07:23 FiO2 Intake & Output 11/20/22 11/21/22 11/21/22 18:59 06:59 18:59 Intake Total 590 Balance 590 Weight 97.522 kg Intake: Oral 590 Other: Voiding Method Toilet # Voids 2 - Exam GENERAL EXAM: Alert, pleasant 67-year-old female, on room air, comfortable in no apparent distress. HEAD: Normocephalic. EYES: Normal reaction of pupils, equal size. NOSE: Clear with pink turbinates. THROAT: No erythema or exudates. NECK: No masses, no JVD. CHEST: No chest wall deformity. LUNGS: Equal air entry with few scattered rhonchi over the left lung. CVS: S1 and S2 normal with no audible murmur, regular rhythm. ABDOMEN: No hepatosplenomegaly, normal bowel sounds, no guarding or rigidity. SPINE: No scoliosis or deformity SKIN: No rashes CENTRAL NERVOUS SYSTEM: No focal deficits, tone is normal in all 4 extremities. EXTREMITIES: There is no peripheral edema. No clubbing, no cyanosis. Peripheral pulses are intact. - Labs CBC & Chem 7: 11/21/22 05:15 11/21/22 05:15 Labs: Abnormal Lab Results - Last 24 Hours (Table) 11/20/22 11/20/22 11/21/22 Range/Units 09:58 17:42 05:15 WBC 27.32 H (4.50-10.00) X 10*3/uL Hgb 10.7 L (12.0-15.0) g/dL Hct 34.9 L (37.2-46.3) % MCH 25.8 L (27.0-32.0) pg MCHC 30.7 L (32.0-37.0) g/dL MPV 9.2 L (9.5-12.2) fL Immature Gran # 0.14 H (0.00-0.04) X 10*3/uL Neutrophils # 23.00 H (1.80-7.70) X 10*3/uL Monocytes # 1.98 H (0.20-1.00) X 10*3/uL Basophils # 0.12 H (0.00-0.10) X 10*3/uL BUN (9.0-27.0) mg/dL BUN/Creatinine Ratio (12.00-20.00) Ratio Glucose (70-110) mg/dL POC Glucose (mg/dL) 146 H (70-110) mg/dL C-Reactive Protein (0.00-0.80) mg/dL Procalcitonin 0.18 H (0.02-0.09) ng/mL 11/21/22 11/21/22 Range/Units 05:15 07:28 WBC (4.50-10.00) X 10*3/uL Hgb (12.0-15.0) g/dL Hct (37.2-46.3) % MCH (27.0-32.0) pg MCHC (32.0-37.0) g/dL MPV (9.5-12.2) fL Immature Gran # (0.00-0.04) X 10*3/uL Neutrophils # (1.80-7.70) X 10*3/uL Monocytes # (0.20-1.00) X 10*3/uL Basophils # (0.00-0.10) X 10*3/uL BUN 8.8 L (9.0-27.0) mg/dL BUN/Creatinine Ratio 10.69 L (12.00-20.00) Ratio Glucose 200 H (70-110) mg/dL POC Glucose (mg/dL) 200 H (70-110) mg/dL C-Reactive Protein 34.90 H (0.00-0.80) mg/dL Procalcitonin (0.02-0.09) ng/mL Assessment and Plan Assessment: Community-acquired pneumonia. Will continue empiric antibiotics in the form of azithromycin and Rocephin Loculated left pleural effusion. Will consult IR for pigtail catheter placement to drain the effusion Suspect COPD based on Chest CT findings, however, patient is a lifelong non- smoker. On room air. Continue PRN ventolin inhaler Pulmonary hypertension Hypertension Hyperlipidemia Diabetes mellitus type 2 non-insulin dependent Hypothyroidism Bipolar disorder Restless leg syndrome Plan: The patient was seen and evaluated She did decline the pigtail catheter yesterday Her daughter will be speaking with her today May place a catheter on 11/23/2022 if agreeable Continue antibiotics for now Stable and on room air We'll continue to follow I have personally seen and examined the patient, performed the documentation and the assessment and plan as written. Number of minutes spent on the visit: 10.
--- NOTE | 2022-11-21 11:27 | P.PN ---
Subjective Progress Note Date: 11/21/22 Pt still feels aches and pains all over. Breathing is improved. Pain on inspiration is improved. She is reconsidering the pigtail catheter at this time. Gen: in no apparent distress, resting comfortably in bed Eyes: PERRL, no scleral injection or icterus HENT: normocephalic, atraumatic, good hearing acuity, moist mucous membranes Neck: no tracheal deviation, full range of motion Resp: good air exchange, breathing comfortably with no accessory muscle use, no tactile fremitus, diminished breath sounds in the left lower base CVS: good distal perfusion x 4, trace bilateral pitting edema, regular rate and rhythm without appreciable murmurs GI: soft, NTTP, ND, no hepatosplenomegaly : no suprapubic tenderness, no CVAT, alcala catheter not present MSK: no clubbing, no cyanosis, no noted contractures of extremities Skin: no noted rashes, petechiae; temperature of skin is appropriate Neuro: moving all extremities without signs of weakness, CN II-XII intact Psych: cooperative, euthymic mood, insight and judgment intact Labs and imaging as above Assessment/plan: Sepsis with community-acquired pneumonia Parapneumonic effusion versus empyema -Admit to inpatient, telemetry -Ceftriaxone/azithromycin for anticipated 7 days -Follow blood culture, sputum culture -Follow pro-calcitonin -Follow CRP -Pulmonology consult for empyema -Morphine when necessary for pain control -Bowel regimen -Can discontinue the Flagyl COPD with pulmonary hypertension Hypertension Hyperlipidemia Diabetes type 2 Hypothyroidism Bipolar disorder Restless leg syndrome -Home medications reviewed and reconciled Patient is DO NOT RESUSCITATE/do not DVT prophylaxis with heparin 3 times a day Objective - Vital Signs Vital signs: Vital Signs Temp 97.7 F 11/21/22 07:23 Pulse 117 H 11/21/22 07:23 Resp 18 11/21/22 07:23 BP 144/85 11/21/22 07:23 Pulse Ox 90 L 11/21/22 07:23 FiO2 Intake & Output 11/20/22 11/21/22 11/21/22 18:59 06:59 18:59 Intake Total 590 Balance 590 Weight 97.522 kg Intake: Oral 590 Other: Voiding Method Toilet # Voids 2 - Labs CBC & Chem 7: 11/21/22 05:15 11/21/22 05:15 Labs: Abnormal Lab Results - Last 24 Hours (Table) 11/20/22 11/20/22 11/21/22 Range/Units 09:58 17:42 05:15 WBC 27.32 H (4.50-10.00) X 10*3/uL Hgb 10.7 L (12.0-15.0) g/dL Hct 34.9 L (37.2-46.3) % MCH 25.8 L (27.0-32.0) pg MCHC 30.7 L (32.0-37.0) g/dL MPV 9.2 L (9.5-12.2) fL Immature Gran # 0.14 H (0.00-0.04) X 10*3/uL Neutrophils # 23.00 H (1.80-7.70) X 10*3/uL Monocytes # 1.98 H (0.20-1.00) X 10*3/uL Basophils # 0.12 H (0.00-0.10) X 10*3/uL BUN (9.0-27.0) mg/dL BUN/Creatinine Ratio (12.00-20.00) Ratio Glucose (70-110) mg/dL POC Glucose (mg/dL) 146 H (70-110) mg/dL C-Reactive Protein (0.00-0.80) mg/dL Procalcitonin 0.18 H (0.02-0.09) ng/mL 11/21/22 11/21/22 Range/Units 05:15 07:28 WBC (4.50-10.00) X 10*3/uL Hgb (12.0-15.0) g/dL Hct (37.2-46.3) % MCH (27.0-32.0) pg MCHC (32.0-37.0) g/dL MPV (9.5-12.2) fL Immature Gran # (0.00-0.04) X 10*3/uL Neutrophils # (1.80-7.70) X 10*3/uL Monocytes # (0.20-1.00) X 10*3/uL Basophils # (0.00-0.10) X 10*3/uL BUN 8.8 L (9.0-27.0) mg/dL BUN/Creatinine Ratio 10.69 L (12.00-20.00) Ratio Glucose 200 H (70-110) mg/dL POC Glucose (mg/dL) 200 H (70-110) mg/dL C-Reactive Protein 34.90 H (0.00-0.80) mg/dL Procalcitonin (0.02-0.09) ng/mL
[2022-11-21] MEDS: AZITHROMYCIN 500 MG TAB PO SCH (13:19)
[2022-11-21 13:21] LABS: Glucose,Whole Blood 201 mg/dL (70-110)
[2022-11-21] MEDS: ACETAMINOPHEN TAB 325 MG TAB PO PRN (13:22)
[2022-11-21] MEDS: HEPARIN SODIUM,PORCINE/PF 5,000 UNIT/0.5 ML SYRINGE SQ SCH ×2 (16:47→23:39)
[2022-11-21 17:33] LABS: Glucose,Whole Blood 170 mg/dL (70-110)
[2022-11-21 20:14] LABS: Glucose,Whole Blood 188 mg/dL (70-110)
[2022-11-21] MEDS: ATORVASTATIN 20 MG TAB PO SCH (20:46)
[2022-11-21] MEDS: OLANZapine 5 MG TAB PO SCH (20:46)
[2022-11-21] MEDS: MORPHINE SULFATE 2 MG/ML SYRINGE IVP PRN (23:43)
[2022-11-22] MEDS: LEVOTHYROXINE 50 MCG TAB PO SCH (06:17)
[2022-11-22 07:21] LABS: Glucose,Whole Blood 208 mg/dL (70-110)
[2022-11-22] MEDS: ASPIRIN 81 MG PO SCH (09:00)
[2022-11-22] MEDS: HEPARIN SODIUM,PORCINE/PF 5,000 UNIT/0.5 ML SYRINGE SQ SCH ×3 (09:00→23:27)
[2022-11-22] MEDS: INSULIN ASPART (NovoLOG) 100 UNIT/ML VIAL SQ SCH ×3 (09:00→17:29)
[2022-11-22] MEDS: ASCORBIC ACID 500 MG TAB PO SCH (09:01)
[2022-11-22] MEDS: atenoloL 25 MG TAB PO SCH (09:01)
[2022-11-22] MEDS: MELOXICAM 7.5 MG TAB PO SCH (09:02)
[2022-11-22] MEDS: CHOLECALCIFEROL 25 MCG (1000 IU) TABLET PO SCH (09:02)
[2022-11-22] MEDS: LORATADINE 10 MG TAB PO SCH (09:02)
[2022-11-22] MEDS: lamoTRIgine 100 MG TAB PO SCH (09:02)
[2022-11-22] MEDS: PARoxetine 10 MG TAB PO SCH ×3 (09:03→21:01)
[2022-11-22] MEDS: LITHIUM CARBONATE 300 MG CAP PO SCH (09:03)
[2022-11-22] MEDS: TRIHEXYPHENIDYL 2 MG TAB PO SCH ×4 (09:03→21:01)
[2022-11-22] MEDS: PANTOPRAZOLE 40 MG/10 ML VIAL IV SCH (09:03)
[2022-11-22] MEDS: OXYBUTYNIN CHLORIDE 5 MG TAB PO SCH ×2 (09:04→21:01)
--- NOTE | 2022-11-22 09:57 | XR ---
EXAMINATION TYPE: XR chest 1V portable DATE OF EXAM: 11/22/2022 9:28 AM COMPARISON: Chest radiographs from 11/21/2022, CT 11/20/2022 TECHNIQUE: XR chest 1V portable Portable AP radiograph of the chest. CLINICAL INDICATION:Female, 67 years old with history of worsening hypoxia, worsening WBC; FINDINGS: Lungs/Pleura: Left hemithorax opacification involving the mid and lower portion. The right lung is re latively clear. Pulmonary vascularity: Unremarkable. Heart/mediastinum: Cardiomediastinal silhouette is unremarkable. Musculoskeletal: No acute osseous pathology. IMPRESSION: Unchanged Generalized haziness to the left mid and lower lung consistent with loculated pleural effus ion and airspace disease on prior CT.
[2022-11-22 10:10] LABS: African American GFR (CKD) >90 (>60 ml/min/1.73 sqM); Anion Gap 6 mmol/L; Blood Urea Nitrogen 8 mg/dL (7-17); Carbon Dioxide 23 mmol/L (22-30); Chloride 101 mmol/L (98-107); Glucose 240 mg/dL (74-99); Magnesium 1.8 mg/dL (1.6-2.3); Non-African American GFR(CKD) >90 (>60 ml/min/1.73 sqM); Potassium 4.2 mmol/L (3.5-5.1); Sodium 130 mmol/L (137-145)
[2022-11-22 11:05] LABS: Basophils # (A) 0.1 k/uL (0-0.2); Basophils % (A) 0 %; Eosinophils # (A) 0.2 k/uL (0-0.7); Eosinophils % (A) 1 %; HCT 32.6 % (34.0-46.0); HGB 10.3 gm/dL (11.4-16.0); Hypochromasia Slight; Lymphocytes # (A) 1.2 k/uL (1.0-4.8); Lymphocytes % (A) 5 %; MCHC 31.4 g/dL (31.0-37.0); MCV 82.6 fL (80.0-100.0); Mean Platelet Volume 8.1; Monocytes # (A) 1.3 k/uL (0-1.0); Monocytes % (A) 5 %; Neutrophils # (A) 22.6 k/uL (1.3-7.7); Neutrophils % (A) 87 %; Platelet Count 393 k/uL (150-450); Poikilocytosis Slight; RBC 3.95 m/uL (3.80-5.40); RDW 13.7 % (11.5-15.5); WBC 25.9 k/uL (3.8-10.6)
[2022-11-22 11:10] LABS: Glucose,Whole Blood 206 mg/dL (70-110)
--- NOTE | 2022-11-22 11:30 | P.PN ---
Subjective Progress Note Date: 11/22/22 Pts labs reivewed and WBC worsening, more hypoxic on room air. Pain still present. Discussed case with patient;s outpt provider today, and plan of care updated with him; pt did not have fevers or complaints of pleuritic pain on prior to arrival during appt. Discussed case with patients daughter, she will encourage patient to undergo procedure tomorrow. Goals of care briefly addressed, patient changed from no code to full code per patient's prior wishes according to daughter. Gen: in no apparent distress, resting comfortably in bed Eyes: PERRL, no scleral injection or icterus HENT: normocephalic, atraumatic, good hearing acuity, moist mucous membranes Neck: no tracheal deviation, full range of motion Resp: good air exchange, breathing comfortably with no accessory muscle use, no tactile fremitus, diminished breath sounds in the left lower base CVS: good distal perfusion x 4, trace bilateral pitting edema, regular rate and rhythm without appreciable murmurs GI: soft, NTTP, ND, no hepatosplenomegaly : no suprapubic tenderness, no CVAT, alcala catheter not present MSK: no clubbing, no cyanosis, no noted contractures of extremities Skin: no noted rashes, petechiae; temperature of skin is appropriate Neuro: moving all extremities without signs of weakness, CN II-XII intact Psych: cooperative, euthymic mood, insight and judgment intact Labs and imaging as above Assessment/plan: Sepsis with community-acquired pneumonia Parapneumonic effusion versus empyema -Admit to inpatient, telemetry -Ceftriaxone/azithromycin for anticipated 7 days -Follow blood culture, sputum culture -Follow pro-calcitonin -Follow CRP -Pulmonology consult for empyema -Morphine when necessary for pain control -Bowel regimen -Can discontinue the Flagyl COPD with pulmonary hypertension Hypertension Hyperlipidemia Diabetes type 2 Hypothyroidism Bipolar disorder Restless leg syndrome -Home medications reviewed and reconciled Patient is full code DVT prophylaxis with heparin 3 times a day Objective - Vital Signs Vital signs: Vital Signs Temp 98.3 F 11/22/22 07:20 Pulse 121 H 11/22/22 07:20 Resp 18 11/22/22 07:20 BP 149/86 11/22/22 07:20 Pulse Ox 90 L 11/22/22 07:20 FiO2 Intake & Output 11/21/22 11/22/22 11/22/22 18:59 06:59 18:59 Intake Total 50 Balance 50 Intake: Intake, IV Titration 50 Amount cefTRIAXone 2 gm In 50 Sodium Chloride 0.9% 50 ml @ 100 mls/hr IVPB Q24HR [facility] Rx#:[id number] Other: Voiding Method Toilet # Voids 3 1 # Bowel Movements 1 - Labs CBC & Chem 7: 11/22/22 09:42 11/22/22 09:42 Labs: Abnormal Lab Results - Last 24 Hours (Table) 11/21/22 11/21/22 11/21/22 Range/Units 13:09 17:32 20:12 WBC (3.8-10.6) k/uL Hgb (11.4-16.0) gm/dL Hct (34.0-46.0) % Neutrophils # (1.3-7.7) k/uL Monocytes # (0-1.0) k/uL Sodium (137-145) mmol/L Glucose (74-99) mg/dL POC Glucose (mg/dL) 201 H 170 H 188 H (70-110) mg/dL Calcium (8.4-10.2) mg/dL 11/22/22 11/22/22 11/22/22 Range/Units 07:20 09:42 09:42 WBC 25.9 H (3.8-10.6) k/uL Hgb 10.3 L (11.4-16.0) gm/dL Hct 32.6 L (34.0-46.0) % Neutrophils # 22.6 H (1.3-7.7) k/uL Monocytes # 1.3 H (0-1.0) k/uL Sodium 130 L (137-145) mmol/L Glucose 240 H (74-99) mg/dL POC Glucose (mg/dL) 208 H (70-110) mg/dL Calcium 8.0 L (8.4-10.2) mg/dL 11/22/22 Range/Units 11:08 WBC (3.8-10.6) k/uL Hgb (11.4-16.0) gm/dL Hct (34.0-46.0) % Neutrophils # (1.3-7.7) k/uL Monocytes # (0-1.0) k/uL Sodium (137-145) mmol/L Glucose (74-99) mg/dL POC Glucose (mg/dL) 206 H (70-110) mg/dL Calcium (8.4-10.2) mg/dL Microbiology - Last 24 Hours (Table) 11/20/22 10:15 Blood Culture - Preliminary Blood No Growth after 24 hours 11/20/22 10:00 Blood Culture - Preliminary Blood No Growth after 24 hours
[2022-11-22] MEDS: AZITHROMYCIN 500 MG TAB PO SCH (13:01)
--- NOTE | 2022-11-22 13:28 | P.PN ---
Subjective Progress Note Date: 11/22/22 Principal diagnosis: Left lower lobe pneumonia and complicated loculated pleural effusion I'm seeing this patient today 11/20/2022 in consultation for a left lower lobe pneumonia. This 67-year-old female with a pertinent medical history of diabetes mellitus, hypertension, hyperlipidemia, hypothyroidism, obstructive sleep apnea with CPAP, never smoker, macular degeneration, anxiety, bipolar, schizoaffective disorder. Patient presented to the emergency department on November 20 for the chief complaint of abdominal pain over the last 3 days that radiated to the ipsilateral shoulder and troubles walking. Patient also had some associated nausea and vomiting. patient denies change in bowel habits, blood in stool, hematemesis, fever, cough, hemoptysis. These findings prompted a workup with an abdominal ultrasound which revealed hepatomegaly with hepatic steatosis. enhanced CT of abdomen and pelvis which showed small to moderate left pleural effusion with scalped margins suggesting areas of loculation, extensive consolidation of the left base, tree-in-bud nodularity at the right base which could reflect aspiration or bronchiolitis, a large hiatal hernia, and umbilical hernia measuring 5 cm, left-sided colonic diverticulosis without diverticulitis, and a moderate stool burden. a chest CTnonenhanced showed COPD changes with mild emphysema and pulmonary arterial hypertension, small to moderate left pleural effusion with loculation redemonstrated, extensive left basilar and left infrahilar airspace diseasethat could correlate with a peripneumonic Effusion or early empyema, additional nodularity entry and bilateral obesity throughout the right lung, and a moderate to large hiatal hernia. patient's CBC showed some leukocytosis with a WBC count of 17.8, hemoglobin 10.7, hematocrit 33, platelets 398,000. Patient's BMP shows a sodium of 134, potassium 4.8, chloride 101, serum CO2 26, BUN 15, creatinine 0.74, glucose 173. There is some mild bleeding elevated LFTs. Procalcitonin was moderately high 0.18. Patient was negative for influenza, RSV, coronavirus. patient is currently sitting up in bed, on room air, and no acute distress. she is maintained on Ventolin nebulizations, empiric azithromycin and ceftriaxone. The patient does have some tardive dyskinesia and lip smacking on examination and she is on multiple different antipsychotic medi cations. Patient is afebrile. Vital signs are stable. The patient is seen today 11/21/2022 in follow-up on the regular medical floor. She is currently resting comfortably in bed. Awake and alert in no acute distress. She is maintaining O2 saturations in the 90s on room air. We had recommended a pigtail catheter insertion for her loculated pleural effusion on the left chest however when she got down to the Department she declined to have a catheter placed. Her daughter is aware. She may reconsider and maybe interventional radiology to place a catheter on Wednesday11/23/2022. Today's chest x-ray reveals generalized haziness to the left mid and lower lung consistent with loculated pleural effusion and airspace disease. White count 27.3. Hemoglobin 10.7. Sodium 135. Potassium 4.3. BUN 9. Creatinine 0.8. Glucose 200. C-reactive protein 34.9. She remains on ceftriaxone and azithromycin. Patient was reevaluated today on 11/22/2022, surprisingly she is doing better than expected considering his pneumonia and left loculated pleural effusion. Patient is still undecided about the pigtail catheter placement, in the meantime she is receiving antibiotics no cough no wheezing no shortness of breath no chest pain, patient is on room air. She does have leukocytosis with WBC count of 25.9 hemoglobin is 10.3, electrolytes are normal Objective - Vital Signs Vital signs: Vital Signs Temp 98.3 F 11/22/22 12:50 Pulse 94 11/22/22 12:50 Resp 18 11/22/22 12:50 BP 112/64 11/22/22 12:50 Pulse Ox 96 11/22/22 12:50 FiO2 Intake & Output 11/21/22 11/22/22 11/22/22 18:59 06:59 18:59 Intake Total 50 Balance 50 Intake: Intake, IV Titration 50 Amount cefTRIAXone 2 gm In 50 Sodium Chloride 0.9% 50 ml @ 100 mls/hr IVPB Q24HR [facility] Rx#:[id number] Other: Voiding Method Toilet Toilet # Voids 3 1 # Bowel Movements 1 - Exam Physical Exam: Revealed a 67-year-old with clear-cut evidence of tardive dyskinesia, lip smacking is noted, she is on room air. Head: Atraumatic normocephalic. HEENT:[Neck is supple.] [No neck masses.] [No thyromegaly.] [No JVD.] Chest: [Diminished breath sounds and crackles at the left base, right side is clear. Cardiac Exam: [Normal S1 and S2, no S3 gallop, no murmur.] Abdomen: [Soft, nontender, no megaly, no rebound, no guarding, normal bowel so unds.] Extremities: [No clubbing, no edema, no cyanosis.] Neurological Exam: [No focal neurologic deficit.] Alert and oriented 3. Psychiatric: Normal mood affect and normal mental status examination. However she seems to be slow Skin: No rashes - Labs CBC & Chem 7: 11/22/22 09:42 11/22/22 09:42 Labs: Abnormal Lab Results - Last 24 Hours (Table) 11/21/22 11/21/22 11/22/22 Range/Units 17:32 20:12 07:20 WBC (3.8-10.6) k/uL Hgb (11.4-16.0) gm/dL Hct (34.0-46.0) % Neutrophils # (1.3-7.7) k/uL Monocytes # (0-1.0) k/uL Sodium (137-145) mmol/L Glucose (74-99) mg/dL POC Glucose (mg/dL) 170 H 188 H 208 H (70-110) mg/dL Calcium (8.4-10.2) mg/dL 11/22/22 11/22/22 11/22/22 Range/Units 09:42 09:42 11:08 WBC 25.9 H (3.8-10.6) k/uL Hgb 10.3 L (11.4-16.0) gm/dL Hct 32.6 L (34.0-46.0) % Neutrophils # 22.6 H (1.3-7.7) k/uL Monocytes # 1.3 H (0-1.0) k/uL Sodium 130 L (137-145) mmol/L Glucose 240 H (74-99) mg/dL POC Glucose (mg/dL) 206 H (70-110) mg/dL Calcium 8.0 L (8.4-10.2) mg/dL Microbiology - Last 24 Hours (Table) 11/20/22 10:00 Blood Culture - Preliminary Blood No Growth after 48 hours 11/20/22 10:15 Blood Culture - Preliminary Blood No Growth after 48 hours Assessment and Plan Assessment: Impression: Community-acquired pneumonia. Continue Rocephin and Zithromax for now. Loculated left pleural effusion. Will consult IR for pigtail catheter placement to drain the effusion Leukocytosis secondary to above, I would still be concerned about the possibility of empyema., Still recommending pigtail catheter placement. Pulmonary hypertension Hypertension Hyperlipidemia Diabetes mellitus type 2 non-insulin dependent Hypothyroidism Bipolar disorder Restless leg syndrome Recommendation: Continue antibiotics Still recommend pigtail catheter placement We will continue to follow Not quite ready for discharge planning Prognosis remains guarded. Time with Patient: Less than 30
[2022-11-22 17:14] LABS: Glucose,Whole Blood 165 mg/dL (70-110)
[2022-11-22] MEDS: ATORVASTATIN 20 MG TAB PO SCH (21:00)
[2022-11-22] MEDS: OLANZapine 5 MG TAB PO SCH (21:01)
[2022-11-22 21:24] LABS: Glucose,Whole Blood 121 mg/dL (70-110)
[2022-11-23] MEDS: LEVOTHYROXINE 50 MCG TAB PO SCH (05:35)
[2022-11-23 06:29] LABS: Glucose,Whole Blood 174 mg/dL (70-110)
[2022-11-23] MEDS: HEPARIN SODIUM,PORCINE/PF 5,000 UNIT/0.5 ML SYRINGE SQ SCH ×3 (08:50→23:07)
[2022-11-23] MEDS: INSULIN ASPART (NovoLOG) 100 UNIT/ML VIAL SQ SCH ×3 (08:50→17:06)
[2022-11-23] MEDS: atenoloL 25 MG TAB PO SCH (08:51)
[2022-11-23] MEDS: ASPIRIN 81 MG PO SCH (08:51)
[2022-11-23] MEDS: CHOLECALCIFEROL 25 MCG (1000 IU) TABLET PO SCH (08:51)
[2022-11-23] MEDS: ASCORBIC ACID 500 MG TAB PO SCH (08:51)
[2022-11-23 08:52] LABS: African American GFR (CKD) 89.7 (60.0-200.0); Anion Gap 9.5 mmol/L (10.00-18.00); BUN/Creat Ratio 8.63 Ratio (12.00-20.00); Blood Urea Nitrogen 6.9 mg/dL (9.0-27.0); Calcium 8.9 mg/dL (8.7-10.3); Carbon Dioxide 24.5 mmol/L (20.0-27.5); Magnesium 2.1 mg/dL (1.5-2.4); Non-African American GFR(CKD) 77.4 (60.0-200.0); Potassium 4.2 mmol/L (3.5-5.5)
[2022-11-23] MEDS: lamoTRIgine 100 MG TAB PO SCH (08:52)
[2022-11-23] MEDS: LITHIUM CARBONATE 300 MG CAP PO SCH (08:52)
[2022-11-23] MEDS: LORATADINE 10 MG TAB PO SCH (08:53)
[2022-11-23] MEDS: MELOXICAM 7.5 MG TAB PO SCH (08:53)
[2022-11-23] MEDS: PARoxetine 10 MG TAB PO SCH ×3 (08:56→23:08)
[2022-11-23] MEDS: OXYBUTYNIN CHLORIDE 5 MG TAB PO SCH ×2 (08:56→20:49)
[2022-11-23] MEDS: PANTOPRAZOLE 40 MG/10 ML VIAL IV SCH (08:56)
[2022-11-23] MEDS: TRIHEXYPHENIDYL 2 MG TAB PO SCH ×4 (08:57→23:08)
[2022-11-23 09:14] LABS: Basophils # (A) 0.08 X 10*3/uL (0.00-0.10); Basophils % (A) 0.3 %; Eosinophils # (A) 0.39 X 10*3/uL (0.04-0.35); Eosinophils % (A) 1.7 %; HCT 33.9 % (37.2-46.3); HGB 10.4 g/dL (12.0-15.0); Immature Grans, Automated 1.7 %; Lymphocytes # (A) 1.79 X 10*3/uL (0.90-5.00); Lymphocytes % (A) 7.6 %; MCH 25.9 pg (27.0-32.0); MCHC 30.7 g/dL (32.0-37.0); MCV 84.5 fL (80.0-97.0); Mean Platelet Volume 9.3 fL (9.5-12.2); Monocytes # (A) 1.28 X 10*3/uL (0.20-1.00); Monocytes % (A) 5.4 %; NRBC Per 100 WBC 0 /100 WBCS (0.0-0.0); Neutrophils # (A) 19.66 X 10*3/uL (1.80-7.70); Neutrophils % (A) 83.3 %; Platelet Count 392 X 10*3/uL (140-440); RBC 4.01 X 10*6/uL (4.10-5.20); RDW 13.6 % (11.5-14.5)
[2022-11-23 09:17] LABS: INR 1.1 (<1.2); Prothrombin Time 11.1 sec (9.0-12.0)
[2022-11-23] MEDS: MORPHINE SULFATE 2 MG/ML SYRINGE IVP PRN ×2 (10:56→23:07)
--- NOTE | 2022-11-23 10:57 | P.PN ---
Subjective Progress Note Date: 11/23/22 Principal diagnosis: Left lower lobe pneumonia and complicated loculated pleural effusion I'm seeing this patient today 11/20/2022 in consultation for a left lower lobe pneumonia. This 67-year-old female with a pertinent medical history of diabetes mellitus, hypertension, hyperlipidemia, hypothyroidism, obstructive sleep apnea with CPAP, never smoker, macular degeneration, anxiety, bipolar, schizoaffective disorder. Patient presented to the emergency department on November 20 for the chief complaint of abdominal pain over the last 3 days that radiated to the ipsilateral shoulder and troubles walking. Patient also had some associated nausea and vomiting. patient denies change in bowel habits, blood in stool, hematemesis, fever, cough, hemoptysis. These findings prompted a workup with an abdominal ultrasound which revealed hepatomegaly with hepatic steatosis. enhanced CT of abdomen and pelvis which showed small to moderate left pleural effusion with scalped margins suggesting areas of loculation, extensive consolidation of the left base, tree-in-bud nodularity at the right base which could reflect aspiration or bronchiolitis, a large hiatal hernia, and umbilical hernia measuring 5 cm, left-sided colonic diverticulosis without diverticulitis, and a moderate stool burden. a chest CTnonenhanced showed COPD changes with mild emphysema and pulmonary arterial hypertension, small to moderate left pleural effusion with loculation redemonstrated, extensive left basilar and left infrahilar airspace diseasethat could correlate with a peripneumonic Effusion or early empyema, additional nodularity entry and bilateral obesity throughout the right lung, and a moderate to large hiatal hernia. patient's CBC showed some leukocytosis with a WBC count of 17.8, hemoglobin 10.7, hematocrit 33, platelets 398,000. Patient's BMP shows a sodium of 134, potassium 4.8, chloride 101, serum CO2 26, BUN 15, creatinine 0.74, glucose 173. There is some mild bleeding elevated LFTs. Procalcitonin was moderately high 0.18. Patient was negative for influenza, RSV, coronavirus. patient is currently sitting up in bed, on room air, and no acute distress. she is maintained on Ventolin nebulizations, empiric azithromycin and ceftriaxone. The patient does have some tardive dyskinesia and lip smacking on examination and she is on multiple different antipsychotic medi cations. Patient is afebrile. Vital signs are stable. The patient is seen today 11/21/2022 in follow-up on the regular medical floor. She is currently resting comfortably in bed. Awake and alert in no acute distress. She is maintaining O2 saturations in the 90s on room air. We had recommended a pigtail catheter insertion for her loculated pleural effusion on the left chest however when she got down to the Department she declined to have a catheter placed. Her daughter is aware. She may reconsider and maybe interventional radiology to place a catheter on Wednesday11/23/2022. Today's chest x-ray reveals generalized haziness to the left mid and lower lung consistent with loculated pleural effusion and airspace disease. White count 27.3. Hemoglobin 10.7. Sodium 135. Potassium 4.3. BUN 9. Creatinine 0.8. Glucose 200. C-reactive protein 34.9. She remains on ceftriaxone and azithromycin. Patient was reevaluated today on 11/22/2022, surprisingly she is doing better than expected considering his pneumonia and left loculated pleural effusion. Patient is still undecided about the pigtail catheter placement, in the meantime she is receiving antibiotics no cough no wheezing no shortness of breath no chest pain, patient is on room air. She does have leukocytosis with WBC count of 25.9 hemoglobin is 10.3, electrolytes are normal I'm reevaluating this patient today on 11/23/2022 in follow-up on a general medical floor. She is lying in bed, on room air, in no acute distress. She is agreeable to the pigtail catheter insertion today. most recent chest x-ray from 11/22/2022 shows some unchanged left mid to lower lung haziness that is consistent with the known loculated pleural effusion. patient is currently afebrile. patient's CBC from today shows some leukocytosis with WBC count of 23.6, hemoglobin 10.4, hematocrit 33.9, platelets 392,000. BMP from today shows a sodium 136, potassium 4.2, chloride 102, serum CO2 24.5, BUN 6.9, creatinine 0.8, glucose 164. coagulation profile is within defined limits. she continues to receive Rocephin and. DuoNeb treatments. vital signs remain stable. Objective - Vital Signs Vital signs: Vital Signs Temp 98 F 11/23/22 07:00 Pulse 108 H 11/23/22 07:00 Resp 18 11/23/22 07:00 BP 117/85 11/23/22 07:00 Pulse Ox 91 L 11/23/22 07:00 FiO2 Intake & Output 11/22/22 11/23/22 11/23/22 18:59 06:59 18:59 Intake Total 325 Balance 325 Intake: Blood Product 325 Other: Voiding Method Toilet Toilet # Voids 1 4 # Bowel Movements 1 - Exam Physical Exam: a 67-year-old white female, in no acute distress. Head: Atraumatic normocephalic. HEENT:[Neck is supple.] [No neck masses.] [No thyromegaly.] [No JVD.] Chest: [Diminished breath sounds and crackles at the left base, right side is clear. on room air. Cardiac Exam: [Normal S1 and S2, no S3 gallop, no murmur.] Abdomen: [Soft, nontender, no megaly, no rebound, no guarding, normal bowel sounds.] Extremities: [No clubbing, no edema, no cyanosis.] Neurological Exam: [No focal neurologic deficit.] Alert and oriented 3. no obvious dyskinesia movements on today's examination. Psychiatric: Normal mood affect Skin: No rashes - Labs CBC & Chem 7: 11/23/22 04:50 11/23/22 04:50 Labs: Abnormal Lab Results - Last 24 Hours (Table) 11/22/22 11/22/22 11/22/22 Range/Units 09:42 11:08 17:13 WBC 25.9 H (3.8-10.6) k/uL RBC (4.10-5.20) X 10*6/uL Hgb 10.3 L (11.4-16.0) gm/dL Hct 32.6 L (34.0-46.0) % MCH (27.0-32.0) pg MCHC (32.0-37.0) g/dL MPV (9.5-12.2) fL Immature Gran # (0.00-0.04) X 10*3/uL Neutrophils # 22.6 H (1.3-7.7) k/uL Monocytes # 1.3 H (0-1.0) k/uL Eosinophils # (0.04-0.35) X 10*3/uL Anion Gap (10.00-18.00) mmol/L BUN (9.0-27.0) mg/dL BUN/Creatinine Ratio (12.00-20.00) Ratio Glucose (70-110) mg/dL POC Glucose (mg/dL) 206 H 165 H (70-110) mg/dL 11/22/22 11/23/22 11/23/22 Range/Units 21:17 04:50 04:50 WBC 23.60 H (3.8-10.6) k/uL RBC 4.01 L (4.10-5.20) X 10*6/uL Hgb 10.4 L (11.4-16.0) gm/dL Hct 33.9 L (34.0-46.0) % MCH 25.9 L (27.0-32.0) pg MCHC 30.7 L (32.0-37.0) g/dL MPV 9.3 L (9.5-12.2) fL Immature Gran # 0.40 H (0.00-0.04) X 10*3/uL Neutrophils # 19.66 H (1.3-7.7) k/uL Monocytes # 1.28 H (0-1.0) k/uL Eosinophils # 0.39 H (0.04-0.35) X 10*3/uL Anion Gap 9.50 L (10.00-18.00) mmol/L BUN 6.9 L (9.0-27.0) mg/dL BUN/Creatinine Ratio 8.63 L (12.00-20.00) Ratio Glucose 164 H (70-110) mg/dL POC Glucose (mg/dL) 121 H (70-110) mg/dL 11/23/22 Range/Units 06:26 WBC (3.8-10.6) k/uL RBC (4.10-5.20) X 10*6/uL Hgb (11.4-16.0) gm/dL Hct (34.0-46.0) % MCH (27.0-32.0) pg MCHC (32.0-37.0) g/dL MPV (9.5-12.2) fL Immature Gran # (0.00-0.04) X 10*3/uL Neutrophils # (1.3-7.7) k/uL Monocytes # (0-1.0) k/uL Eosinophils # (0.04-0.35) X 10*3/uL Anion Gap (10.00-18.00) mmol/L BUN (9.0-27.0) mg/dL BUN/Creatinine Ratio (12.00-20.00) Ratio Glucose (70-110) mg/dL POC Glucose (mg/dL) 174 H (70-110) mg/dL Microbiology - Last 24 Hours (Table) 11/20/22 10:00 Blood Culture - Preliminary Blood No Growth after 48 hours 11/20/22 10:15 Blood Culture - Preliminary Blood No Growth after 48 hours Assessment and Plan Assessment: community-acquired pneumonia. Will continue empiric antibiotics in the form of Rocephin Loculated left pleural effusion. patient previously refused pigtail catheter insertion. IR will reevaluate today. Leukocytosis secondary to above pulmonary hypertension Hypertension Hyperlipidemia Diabetes mellitus type 2 non-insulin dependent Hypothyroidism Bipolar disorder Restless leg syndrome Plan: patient's medications, labs, chest x-ray reviewed Still recommend pigtail catheter insertion for drainage of the loculated pleural effusion Continue empiric treatment with Rocephin On room air We will continue to follow I have personally seen and examined the patient, performed the documentation and the assessment and plan as written. Number of minutes spent on the visit: 10. 5
[2022-11-23 12:07] LABS: Glucose,Whole Blood 189 mg/dL (70-110)
--- NOTE | 2022-11-23 12:25 | CT ---
EXAMINATION TYPE: CT chest tube insertion DATE OF EXAM: 11/23/2022 COMPARISON: 11/20/2022 HISTORY: Left pleural effusion CT DLP: 1063 mGycm The procedure is discussed with the patient, the risks, complications, benefits and alternatives, wer e discussed and any questions were answered. Informed consent was obtained. The patient is placed p blessing on the CT table, prepped and draped in the usual sterile fashion. Utilizing a 22-gauge Chiba needle access into request and left pleural effusion was achieved with les s than 0.018 guidewire. Conversion to a 0.035 system, serial dilation 8 Urdu and placement of 8 [facility] drainage catheter. Samples obtained and sent to pathology for analysis. Pathology pending. All elements of maximal barrier sterile technique were utilized. The patient rem ained stable throughout the procedure with no immediate postprocedural complication. IMPRESSION: 1. Successful CT guided chest tube insertion for possible empyema.
[2022-11-23 13:35] VITALS: BMI 33.6
--- NOTE | 2022-11-23 14:14 | P.PN ---
Subjective Progress Note Date: 11/23/22 pt is s/p pigtail placement today, doing better. WBC was stable. No worsening fevers. Gen: in no apparent distress, resting comfortably in bed Eyes: PERRL, no scleral injection or icterus HENT: normocephalic, atraumatic, good hearing acuity, moist mucous membranes Neck: no tracheal deviation, full range of motion Resp: good air exchange, breathing comfortably with no accessory muscle use, no tactile fremitus, diminished breath sounds in the left lower base CVS: good distal perfusion x 4, trace bilateral pitting edema, regular rate and rhythm without appreciable murmurs GI: soft, NTTP, ND, no hepatosplenomegaly : no suprapubic tenderness, no CVAT, alcala catheter not present MSK: no clubbing, no cyanosis, no noted contractures of extremities Skin: no noted rashes, petechiae; temperature of skin is appropriate Neuro: moving all extremities without signs of weakness, CN II-XII intact Psych: cooperative, euthymic mood, insight and judgment intact Labs and imaging as above Assessment/plan: Sepsis with community-acquired pneumonia Parapneumonic effusion versus empyema -Admit to inpatient, telemetry -Ceftriaxone/azithromycin for anticipated 7 days -Follow blood culture, sputum culture -Follow pro-calcitonin -Follow CRP -Pulmonology consult for empyema -Morphine when necessary for pain control -Bowel regimen -Can discontinue the Flagyl COPD with pulmonary hypertension Hypertension Hyperlipidemia Diabetes type 2 Hypothyroidism Bipolar disorder Restless leg syndrome -Home medications reviewed and reconciled Patient is full code DVT prophylaxis with heparin 3 times a day Objective - Vital Signs Vital signs: Vital Signs Temp 97.4 F L 11/23/22 12:03 Pulse 91 11/23/22 12:03 Resp 18 11/23/22 12:03 BP 143/77 11/23/22 12:03 Pulse Ox 92 L 11/23/22 12:03 FiO2 Intake & Output 11/22/22 11/23/22 11/23/22 18:59 06:59 18:59 Intake Total 325 Balance 325 Weight 97.522 kg Intake: Blood Product 325 Other: Voiding Method Toilet Toilet Toilet # Voids 1 4 # Bowel Movements 1 - Labs CBC & Chem 7: 11/23/22 04:50 11/23/22 04:50 Labs: Abnormal Lab Results - Last 24 Hours (Table) 11/22/22 11/22/22 11/23/22 Range/Units 17:13 21:17 04:50 WBC 23.60 H (4.50-10.00) X 10*3/uL RBC 4.01 L (4.10-5.20) X 10*6/uL Hgb 10.4 L (12.0-15.0) g/dL Hct 33.9 L (37.2-46.3) % MCH 25.9 L (27.0-32.0) pg MCHC 30.7 L (32.0-37.0) g/dL MPV 9.3 L (9.5-12.2) fL Immature Gran # 0.40 H (0.00-0.04) X 10*3/uL Neutrophils # 19.66 H (1.80-7.70) X 10*3/uL Monocytes # 1.28 H (0.20-1.00) X 10*3/uL Eosinophils # 0.39 H (0.04-0.35) X 10*3/uL Anion Gap (10.00-18.00) mmol/L BUN (9.0-27.0) mg/dL BUN/Creatinine Ratio (12.00-20.00) Ratio Glucose (70-110) mg/dL POC Glucose (mg/dL) 165 H 121 H (70-110) mg/dL 11/23/22 11/23/22 11/23/22 Range/Units 04:50 06:26 12:05 WBC (4.50-10.00) X 10*3/uL RBC (4.10-5.20) X 10*6/uL Hgb (12.0-15.0) g/dL Hct (37.2-46.3) % MCH (27.0-32.0) pg MCHC (32.0-37.0) g/dL MPV (9.5-12.2) fL Immature Gran # (0.00-0.04) X 10*3/uL Neutrophils # (1.80-7.70) X 10*3/uL Monocytes # (0.20-1.00) X 10*3/uL Eosinophils # (0.04-0.35) X 10*3/uL Anion Gap 9.50 L (10.00-18.00) mmol/L BUN 6.9 L (9.0-27.0) mg/dL BUN/Creatinine Ratio 8.63 L (12.00-20.00) Ratio Glucose 164 H (70-110) mg/dL POC Glucose (mg/dL) 174 H 189 H (70-110) mg/dL Microbiology - Last 24 Hours (Table) 11/20/22 10:15 Blood Culture - Preliminary Blood No Growth after 72 hours 11/20/22 10:00 Blood Culture - Preliminary Blood No Growth after 72 hours
[2022-11-23 16:49] LABS: Glucose,Whole Blood 126 mg/dL (70-110)
[2022-11-23 20:04] LABS: Glucose,Whole Blood 142 mg/dL (70-110)
[2022-11-23] MEDS: ATORVASTATIN 20 MG TAB PO SCH (20:48)
[2022-11-23] MEDS: OLANZapine 5 MG TAB PO SCH (20:49)
[2022-11-23 21:04] LABS: Appearance,BF Slightly Hazy
[2022-11-23 21:47] LABS: Amylase, Fluid Source Pleural Fluid; Amylase,Body Fluid 17 U/L; Glucose, BF Source Pleural Fluid; Glucose, Body Fluid 11 mg/dL; LDH, Body Fluid Source Pleural Fluid; T. Protein, Body Fluid Source Pleural Fluid; Total Protein, Body Fluid 4360 mg/dL
[2022-11-24] MEDS: LEVOTHYROXINE 50 MCG TAB PO SCH (04:21)
[2022-11-24] MEDS: MORPHINE SULFATE 2 MG/ML SYRINGE IVP PRN (04:21)
[2022-11-24 07:00] LABS: Glucose,Whole Blood 141 mg/dL (70-110)
--- NOTE | 2022-11-24 08:23 | XR ---
EXAMINATION TYPE: XR chest 1V portable DATE OF EXAM: 11/24/2022 8:16 AM COMPARISON: Chest radiographs from 11/22/2022, CT chest tube insertion 11/23/2022. TECHNIQUE: XR chest 1V portable Portable AP radiograph of the chest. CLINICAL INDICATION:Female, 67 years old with history of post left pigtail catheter insertion; FINDINGS: Lungs/Pleura: Decreased size of moderate left pleural effusion. Patchy left mid and lower lung airspa ce opacities redemonstrated. Pulmonary vascularity: Pulmonary vascular congestion. Heart/mediastinum: Cardiomediastinal silhouette is partially obscured due to overlying and adjacent o pacities. Musculoskeletal: No acute osseous pathology. Other findings: None Lines/Tubes: Left pleural pigtail catheter is present without evidence of pneumothorax. IMPRESSION: 1. Interval placement of left pleural pigtail catheter with decrease size of moderate left pleural e ffusion. 2. No pneumothorax. 3. Mild pulmonary vascular congestion with patchy left mid and lower lung consolidation.
[2022-11-24] MEDS: lamoTRIgine 100 MG TAB PO SCH (09:04)
[2022-11-24] MEDS: CHOLECALCIFEROL 25 MCG (1000 IU) TABLET PO SCH (09:04)
[2022-11-24] MEDS: MELOXICAM 7.5 MG TAB PO SCH (09:05)
[2022-11-24] MEDS: ASPIRIN 81 MG PO SCH (09:05)
[2022-11-24] MEDS: INSULIN ASPART (NovoLOG) 100 UNIT/ML VIAL SQ SCH ×3 (09:05→18:07)
[2022-11-24] MEDS: ASCORBIC ACID 500 MG TAB PO SCH (09:05)
[2022-11-24] MEDS: atenoloL 25 MG TAB PO SCH (09:06)
[2022-11-24] MEDS: LORATADINE 10 MG TAB PO SCH (09:06)
[2022-11-24] MEDS: HEPARIN SODIUM,PORCINE/PF 5,000 UNIT/0.5 ML SYRINGE SQ SCH ×2 (09:06→15:41)
[2022-11-24] MEDS: PANTOPRAZOLE 40 MG/10 ML VIAL IV SCH (09:06)
[2022-11-24] MEDS: PARoxetine 10 MG TAB PO SCH ×3 (09:07→21:02)
[2022-11-24] MEDS: OXYBUTYNIN CHLORIDE 5 MG TAB PO SCH ×2 (09:07→21:02)
[2022-11-24] MEDS: TRIHEXYPHENIDYL 2 MG TAB PO SCH ×4 (09:07→21:02)
[2022-11-24] MEDS: LITHIUM CARBONATE 300 MG CAP PO SCH (09:08)
--- NOTE | 2022-11-24 10:18 | P.PN ---
Subjective Progress Note Date: 11/24/22 pt is doing well s/p pigtail placement. Pending labs this morning. Gen: in no apparent distress, resting comfortably in bed Eyes: PERRL, no scleral injection or icterus HENT: normocephalic, atraumatic, good hearing acuity, moist mucous membranes Neck: no tracheal deviation, full range of motion Resp: good air exchange, breathing comfortably with no accessory muscle use, no tactile fremitus, diminished breath sounds in the left lower base CVS: good distal perfusion x 4, trace bilateral pitting edema, regular rate and rhythm without appreciable murmurs GI: soft, NTTP, ND, no hepatosplenomegaly : no suprapubic tenderness, no CVAT, alcala catheter not present MSK: no clubbing, no cyanosis, no noted contractures of extremities Skin: no noted rashes, petechiae; temperature of skin is appropriate Neuro: moving all extremities without signs of weakness, CN II-XII intact Psych: cooperative, euthymic mood, insight and judgment intact Labs and imaging as above Assessment/plan: Sepsis with community-acquired pneumonia Parapneumonic effusion versus empyema -Admit to inpatient, telemetry -Ceftriaxone/azithromycin for anticipated 7 days -Follow blood culture, sputum culture -Follow pro-calcitonin -Follow CRP -Pulmonology consult for empyema -Morphine when necessary for pain control -Bowel regimen -Can discontinue the Flagyl COPD with pulmonary hypertension Hypertension Hyperlipidemia Diabetes type 2 Hypothyroidism Bipolar disorder Restless leg syndrome -Home medications reviewed and reconciled Patient is full code DVT prophylaxis with heparin 3 times a day Objective - Vital Signs Vital signs: Vital Signs Temp 98.2 F 11/24/22 07:46 Pulse 104 H 11/24/22 07:46 Resp 18 11/24/22 07:46 BP 156/91 11/24/22 07:46 Pulse Ox 91 L 11/24/22 07:46 FiO2 Intake & Output 11/23/22 11/24/22 11/24/22 18:59 06:59 18:59 Output Total 166 Balance -166 Weight 97.522 kg Output: Chest Tube Drainage 166 Chest Tube Left Posterior 166 Chest Other: Voiding Method Toilet Toilet # Voids 2 2 - Labs CBC & Chem 7: 11/23/22 04:50 11/23/22 04:50 Labs: Abnormal Lab Results - Last 24 Hours (Table) 11/23/22 11/23/22 11/23/22 Range/Units 12:05 16:48 20:00 POC Glucose (mg/dL) 189 H 126 H 142 H (70-110) mg/dL 11/24/22 Range/Units 06:58 POC Glucose (mg/dL) 141 H (70-110) mg/dL Microbiology - Last 24 Hours (Table) 11/23/22 11:40 Gram Stain - Preliminary Pleural Fluid Body Fluid Culture - Preliminary 11/23/22 11:40 Acid Fast Bacilli Culture - Preliminary Pleural Fluid 11/23/22 11:40 Fungal Culture - Preliminary Pleural Fluid 11/23/22 12:05 Anaerobic Culture - Preliminary Pleural Fluid 11/20/22 10:15 Blood Culture - Preliminary Blood No Growth after 72 hours 11/20/22 10:00 Blood Culture - Preliminary Blood No Growth after 72 hours
[2022-11-24] MEDS ORDERED: DORNASE ALFA 5 MG in SODIUM CHLORIDE 0.9% 50 ML IRRIGATION ONE (10:37)
[2022-11-24] MEDS ORDERED: ALTEPLASE 10 MG in SODIUM CHLORIDE 0.9% 50 ML IRRIGATION ONE (10:37)
--- NOTE | 2022-11-24 10:37 | P.GSCN ---
History of Present Illness Consult date: 11/24/22 Reason for Consult: Loculated left pleural effusion, status post left pigtail catheter insertion Requesting physician: Antonio He History of present illness: This is a 67-year-old female patient who follows with Dr. Bishop Almonte for her primary care service on an outpatient basis. She is past medical history sig nificant for hypertension, hyperlipidemia, diabetes mellitus type 2, hypothyroid, obstructive sleep apnea without home CPAP use, obesity with a BMI of 33.7 kg/m, she is a lifetime nonsmoker, anxiety, depression, bipolar disorder, schizoaffective disorder, GERD, degenerative joint disease, and memory impairment. The patient presented to the emergency department here at [facility] via EMS on 11/20/2022 for complaints of intermittent abdominal pain that was present for 3-4 days prior to her presentation. She reports that she also had pain to her left lower chest and denies any recent fever, chills, nausea, vomiting, diarrhea, change in her urinary habits, headache, hemoptysis, hematemesis, shortness of breath, presyncope or syncope. Initial laboratory results showed a WBC count of 17.8, hemoglobin 10.7, hematocrit 33.0, platelets 398, sodium 134, potassium 4.8, BUN 15, creatinine 0.74, glucose 173, AST 65, ALT 120, alkaline phosphatase 159, troponin less than 0.012, and pro calcitonin level of 0.18. She is also tested for influenza type A/type B, RSV and COVID-19 which all showed not detected. Due to her complaints of left epigastric pain, and left flank pain and ultrasound of her gallbladder was completed which showed hepatomegaly with hepatic steatosis. As follow-up a computed tomography scan of her abdomen and pelvis was completed which demonstrated a small to moderate left-sided pleural effusion with scalloped margin which suggest areas of loculation, extensive consolidation at the left base, possible pneumonia and parapneumonic effusion or empyema, tree-in-bud nodularity at the right base, possibly may reflect aspiration or bronchiolitis, a small to moderate-sized fat-containing umbilical hernia, a moderate to large hiatal hernia and a left-sided colonic diverticulosis. For further evaluation the patient underwent a computed tomography scan of her chest which demonstrated COPD with mild emphysema and pulmonary arterial hypertension, a small to moderate left-sided pleural effusion with areas of loculation, additional nodularity and tree-in-bud opacity dependently throughout the right lung and also at the left mid lung likely on an infectious/inflammatory basis and a moderate to large hiatal hernia as mentioned above per the CT abdomen/pelvis report. Subsequently, due to the findings of a loculated left pleural effusion interventional radiology was consulted and the patient underwent a successful CT-guided chest pigtail tube insertion yesterday and 11/23/2022. A consult was then placed for cardiothoracic surgery for further evaluation and treatment recommendations including pleural instillation treatments with alteplase/dorna se. Review of Systems A 14 point review of systems was completed and was negative except as mentioned in the HPI. Past Medical History Past Medical History: Chest Pain / Angina, Diabetes Mellitus, Eye Disorder, GERD/Reflux, Hyperlipidemia, Hypertension, Memory Impairment, Osteoarthritis (OA), Seizure Disorder, Sleep Apnea/CPAP/BIPAP, Thyroid Disorder Additional Past Medical History / Comment(s): NIDDM type II, neuropathy bilateral legs/feet, BETINA/does not use CPAP device, short term memory issues, past seizure many years ago associated with a medication, hypothyroid, sinus issues, varicose vein, stress incontinence/urgency, frequent UTIs, RLS, lightheaded/dizzy when rising at times, bilateral eye macular degeneration, hypoothyroid. Last Myocardial Infarction Date:: 2016 History of Any Multi-Drug Resistant Organisms: None Reported Past Surgical History: Section Additional Past Surgical History / Comment(s): D&C with hysteroscopy/colposcopy, surgery for deviated septum, history of EGD secondary to GERD Past Anesthesia/Blood Transfusion Reactions: Motion Sickness Past Psychological History: Anxiety, Bipolar, Depression, Schizoaffective Disorder Additional Psychological History / Comment(s): Pt resides in her own home. She goes to [employer] during the daytime. Her daughter checks on her twice a day. Pt uses a cane or walker. [employer] manages her medications. Smoking Status: Never smoker Past Alcohol Use History: None Reported Past Drug Use History: None Reported - Past Family History Father Family Medical History: CVA/TIA Additional Family Medical History / Comment(s): SMOKED AND ABUSED ETOH- AGE 78- FROM STROKE Mother Additional Family Medical History / Comment(s): CRONIC BRONCHITIS.REMOVED PART OF ONE LUNG d/t the bronchitis infection Medications and Allergies Home Medications Medication Instructions Recorded Confirmed Type Levothyroxine Sodium [Synthroid] 50 mcg PO DAILY 06/01/15 11/20/22 History metFORMIN HCL [Glucophage] 500 mg PO BID 12/15/17 11/20/22 History Atorvastatin [Lipitor] 20 mg PO HS 03/07/18 11/20/22 History rOPINIRole HCL [Requip] 0.5 mg PO HS 06/09/18 11/20/22 History lamoTRIgine [LaMICtal] 200 mg PO DAILY 04/06/19 11/20/22 History [place] Carbonate 600 mg PO DAILY 12/22/20 11/20/22 History atenoloL 12.5 mg PO DAILY 12/22/20 11/20/22 History Omeprazole 20 mg PO DAILY 01/23/21 11/20/22 History Ascorbic Acid [Vitamin C] 500 mg PO DAILY 10/14/22 11/20/22 History Cholecalciferol [Vitamin D3 (25 50 mcg PO DAILY 10/14/22 11/20/22 History Mcg = 1000 Iu)] OLANZapine [ZyPREXA] 5 mg PO HS #30 tab 10/20/22 11/20/22 Rx PARoxetine [Paxil] 10 mg PO TID tab 10/20/22 11/20/22 Rx Albuterol Sulfate [Ventolin HFA] 2 puff INHALATION RT-QID PRN 11/20/22 11/20/22 History Aspirin EC [Ecotrin Low Dose] 81 mg PO DAILY 11/20/22 11/20/22 History Capsicum Oleoresin [Dermacinrx 1 applic TOPICAL TID PRN 11/20/22 11/20/22 History Circata] LORazepam [Ativan] 0.5 mg PO QID PRN 11/20/22 11/20/22 History Levocetirizine Dihydrochloride 5 mg PO DAILY 11/20/22 11/20/22 History [Xyzal] Meloxicam [Mobic] 15 mg PO DAILY 11/20/22 11/20/22 History Oxybutynin Chloride [Ditropan] 5 mg PO BID 11/20/22 11/20/22 History Trihexyphenidyl [Artane] 2 mg PO QID 11/20/22 11/20/22 History Allergies Allergy/AdvReac Type Severity Reaction Status Date / Time amoxicillin Allergy Rash/Hives Verified 11/20/22 10:22 codeine Allergy Unknown Verified 11/20/22 10:22 Sulfa (Sulfonamide Allergy Unknown Verified 11/20/22 10:22 Antibiotics) sulfamethoxazole Allergy Rash/Hives Verified 11/20/22 10:22 [From Bactrim] thioridazine [From Mellaril] Allergy Unknown Verified 11/20/22 10:22 trimethoprim [From Bactrim] Allergy Rash/Hives Verified 11/20/22 10:22 Surgical - Exam Vital Signs Temp Pulse Resp BP Pulse Ox 99.7 F H 98 18 140/91 91 L 11/20/22 06:39 11/20/22 06:39 11/20/22 06:39 11/20/22 06:39 11/20/22 06:39 - General well developed, well nourished, no distress, no pain, obese - Eyes PERRL, normal ocular movement, no pale, no icteric - ENT normal pinna, normal nares, normal mucosa, no hearing loss, no congestion - Neck Neck is supple, no lymphadenopathy. no masses, no bruits, trachea midline, no venous distension - Respiratory Lungs are essentially diminished throughout the left lobes, essentially clear to her right lobes. No wheezes, rhonchi or crackles. Respirations are symmetrical and nonlabored. Left chest pigtail catheter is in place to low continuous wall suction -20 cm H2O. No air leak is present. Draining thin serous drainage with 300 mL of drainage since the pigtail catheter was placed. - Cardiovascular Regular rhythm and rate. S1 and S2 present, negative for S3, gallop or murmur. - Abdomen Abdomen is soft, nontender and nondistended. No guarding or rigidity. No org anomegaly appreciated. Obese. - Genitourinary Deferred - Rectum Deferred - Integumentary Skin is warm and dry. No clubbing or cyanosis is present. Left posterior chest pigtail catheter dressing is clean, dry and intact no rash, no growths, no abnormal pigmentation - Neurologic No focal deficits. normal coordination, normal sensation - Musculoskeletal Moves all 4 extremities with equal strength bilateral. - Psychiatric As slurred speech at times, chronic in nature. Forgetfulness at times, chronic in nature oriented to time, oriented to person, oriented to place, no speech is normal, no memory intact Results - Labs 11/23/22 04:50 11/23/22 04:50 Abnormal Lab Results - Last 24 Hours (Table) 11/23/22 11/23/22 11/23/22 Range/Units 12:05 16:48 20:00 POC Glucose (mg/dL) 189 H 126 H 142 H (70-110) mg/dL 11/24/22 Range/Units 06:58 POC Glucose (mg/dL) 141 H (70-110) mg/dL Microbiology - Last 24 Hours (Table) 11/23/22 11:40 Gram Stain - Preliminary Pleural Fluid Body Fluid Culture - Preliminary 11/23/22 11:40 Acid Fast Bacilli Culture - Preliminary Pleural Fluid 11/23/22 11:40 Fungal Culture - Preliminary Pleural Fluid 11/23/22 12:05 Anaerobic Culture - Preliminary Pleural Fluid 11/20/22 10:15 Blood Culture - Preliminary Blood No Growth after 72 hours 11/20/22 10:00 Blood Culture - Preliminary Blood No Growth after 72 hours - Imaging CT scan - abdomen: report reviewed CT scan - chest: report reviewed, image reviewed Assessment and Plan Assessment: 1. Community-acquired pneumonia 2. Loculated left pleural effusion, likely secondary to above, status post left chest pigtail catheter placement by interventional radiology 3. Hypertension 4. Hyperlipidemia 5. Diabetes mellitus type 2 6. Hypothyroidism 7. Anxiety 8. History of depression 9. History of bipolar disorder 10. History of schizoaffective disorder 11. GERD 12. Hiatal hernia, per computed tomography scan of the abdomen 13. Lifetime nonsmoker 14. Obstructive sleep apnea without home CPAP use 15. Obesity with a BMI of 33.7 kg/m 16. Degenerative joint disease 17. Memory impairment Plan: The patient was seen and examined at her bedside on the fifth floor medical/oncology unit. Her chart and diagnostics were reviewed. Her case was discussed in detail with Dr. Yamil Miramontes from cardiothoracic surgery. The patient underwent a left pleural pigtail catheter placement yesterday 11/23/2022 performed by interventional radiology. Recommendations for pleural instillation of alteplase/dornase due to her loculated pleural effusion, this was discussed with the patient and also with the patient's daughter Katie. Risks and be nefits of the alteplase/dornase has been discussed and knowing and understanding these risks the patient wishes to proceed with the alteplase/dornase pleural instillation treatment. Medical management of her comorbidities per primary care and pulmonary services. Thank you Dr. He for this consult and we'll look for to working with you in the care of this patient. I have personally seen and examined the patient, performed the documentation and the assessment and plan as written. 30 minutes spent on the visit . Finesse DU
[2022-11-24 11:28] LABS: Glucose,Whole Blood 182 mg/dL (70-110)
--- NOTE | 2022-11-24 11:45 | P.PN ---
Subjective Progress Note Date: 11/24/22 Principal diagnosis: Left lower lobe pneumonia and complicated loculated pleural effusion I'm seeing this patient today 11/20/2022 in consultation for a left lower lobe pneumonia. This 67-year-old female with a pertinent medical history of diabetes mellitus, hypertension, hyperlipidemia, hypothyroidism, obstructive sleep apnea with CPAP, never smoker, macular degeneration, anxiety, bipolar, schizoaffective disorder. Patient presented to the emergency department on November 20 for the chief complaint of abdominal pain over the last 3 days that radiated to the ipsilateral shoulder and troubles walking. Patient also had some associated nausea and vomiting. patient denies change in bowel habits, blood in stool, hematemesis, fever, cough, hemoptysis. These findings prompted a workup with an abdominal ultrasound which revealed hepatomegaly with hepatic steatosis. enhanced CT of abdomen and pelvis which showed small to moderate left pleural effusion with scalped margins suggesting areas of loculation, extensive consolidation of the left base, tree-in-bud nodularity at the right base which could reflect aspiration or bronchiolitis, a large hiatal hernia, and umbilical hernia measuring 5 cm, left-sided colonic diverticulosis without diverticulitis, and a moderate stool burden. a chest CTnonenhanced showed COPD changes with mild emphysema and pulmonary arterial hypertension, small to moderate left pleural effusion with loculation redemonstrated, extensive left basilar and left infrahilar airspace diseasethat could correlate with a peripneumonic Effusion or early empyema, additional nodularity entry and bilateral obesity throughout the right lung, and a moderate to large hiatal hernia. patient's CBC showed some leukocytosis with a WBC count of 17.8, hemoglobin 10.7, hematocrit 33, platelets 398,000. Patient's BMP shows a sodium of 134, potassium 4.8, chloride 101, serum CO2 26, BUN 15, creatinine 0.74, glucose 173. There is some mild bleeding elevated LFTs. Procalcitonin was moderately high 0.18. Patient was negative for influenza, RSV, coronavirus. patient is currently sitting up in bed, on room air, and no acute distress. she is maintained on Ventolin nebulizations, empiric azithromycin and ceftriaxone. The patient does have some tardive dyskinesia and lip smacking on examination and she is on multiple different antipsychotic medi cations. Patient is afebrile. Vital signs are stable. The patient is seen today 11/21/2022 in follow-up on the regular medical floor. She is currently resting comfortably in bed. Awake and alert in no acute distress. She is maintaining O2 saturations in the 90s on room air. We had recommended a pigtail catheter insertion for her loculated pleural effusion on the left chest however when she got down to the Department she declined to have a catheter placed. Her daughter is aware. She may reconsider and maybe interventional radiology to place a catheter on Wednesday11/23/2022. Today's chest x-ray reveals generalized haziness to the left mid and lower lung consistent with loculated pleural effusion and airspace disease. White count 27.3. Hemoglobin 10.7. Sodium 135. Potassium 4.3. BUN 9. Creatinine 0.8. Glucose 200. C-reactive protein 34.9. She remains on ceftriaxone and azithromycin. Patient was reevaluated today on 11/22/2022, surprisingly she is doing better than expected considering his pneumonia and left loculated pleural effusion. Patient is still undecided about the pigtail catheter placement, in the meantime she is receiving antibiotics no cough no wheezing no shortness of breath no chest pain, patient is on room air. She does have leukocytosis with WBC count of 25.9 hemoglobin is 10.3, electrolytes are normal I'm reevaluating this patient today on 11/23/2022 in follow-up on a general medical floor. She is lying in bed, on room air, in no acute distress. She is agreeable to the pigtail catheter insertion today. most recent chest x-ray from 11/22/2022 shows some unchanged left mid to lower lung haziness that is consistent with the known loculated pleural effusion. patient is currently afebrile. patient's CBC from today shows some leukocytosis with WBC count of 23.6, hemoglobin 10.4, hematocrit 33.9, platelets 392,000. BMP from today shows a sodium 136, potassium 4.2, chloride 102, serum CO2 24.5, BUN 6.9, creatinine 0.8, glucose 164. coagulation profile is within defined limits. she continues to receive Rocephin and. DuoNeb treatments. vital signs remain stable. I'm reevaluating this patient today on 11/24/2022 in follow-up on a general [facility] floor. She is currently sitting up in bed, on room air, in no acute distress. Patient has a pigtail catheter in place draining, a serous colored fluid, with a total of 270 mL of output since insertion by Dr. Perez on 11/23/2022. The pigtail is attached to suction at -20 Cm of Water. Patient's repeat chest x-ray from today shows interval placement of the left pleural pigtail catheter with decreased size of the moderate left pleural effusion, no pneumothorax, mild pulmonary vascular congestion with patchy left mid and lower lung consolidation. Pleural fluid cultures are pending. No new labs to review today. Patient finished course of Rocephin. Patient has remained afebrile. Brandon randle is receiving Ventolin nebulizations as needed. Vital signs remain stable. Objective - Vital Signs Vital signs: Vital Signs Temp 98.2 F 11/24/22 07:46 Pulse 104 H 11/24/22 07:46 Resp 18 11/24/22 07:46 BP 156/91 11/24/22 07:46 Pulse Ox 91 L 11/24/22 07:46 FiO2 Intake & Output 11/23/22 11/24/22 11/24/22 18:59 06:59 18:59 Output Total 166 Balance -166 Weight 97.522 kg Output: Chest Tube Drainage 166 Chest Tube Left Posterior 166 Chest Other: Voiding Method Toilet Toilet Toilet # Voids 2 2 - Exam Physical Exam: a 67-year-old white female, in no acute distress. Head: Atraumatic normocephalic. HEENT:[Neck is supple.] [No neck masses.] [No thyromegaly.] [No JVD.] Chest: [Diminished breath sounds and crackles at the left base, right side is clear. on room air. Cardiac Exam: [Normal S1 and S2, no S3 gallop, no murmur.] Abdomen: [Soft, nontender, no megaly, no rebound, no guarding, normal bowel so unds.] Extremities: [No clubbing, no edema, no cyanosis.] Neurological Exam: [No focal neurologic deficit.] Alert and oriented 3. no obvious dyskinesia movements on today's examination. Psychiatric: Normal mood affect Skin: No rashes - Labs CBC & Chem 7: 11/23/22 04:50 11/23/22 04:50 Labs: Abnormal Lab Results - Last 24 Hours (Table) 11/23/22 11/23/22 11/23/22 Range/Units 12:05 16:48 20:00 POC Glucose (mg/dL) 189 H 126 H 142 H (70-110) mg/dL 11/24/22 11/24/22 Range/Units 06:58 11:26 POC Glucose (mg/dL) 141 H 182 H (70-110) mg/dL Microbiology - Last 24 Hours (Table) 11/23/22 11:40 Gram Stain - Preliminary Pleural Fluid Body Fluid Culture - Preliminary 11/23/22 11:40 Acid Fast Bacilli Culture - Preliminary Pleural Fluid 11/23/22 11:40 Fungal Culture - Preliminary Pleural Fluid 11/23/22 12:05 Anaerobic Culture - Preliminary Pleural Fluid 11/20/22 10:15 Blood Culture - Preliminary Blood No Growth after 72 hours 11/20/22 10:00 Blood Culture - Preliminary Blood No Growth after 72 hours Assessment and Plan Assessment: community-acquired pneumonia. Patient has completed course of Rocephin. Loculated left pleural effusion. Patient has a left pigtail catheter in place draining a serous fluid. Total of 270 mL of output and since insertion yesterday pigtail catheter is currently to suction to water. Repeat chest x-ray today shows a decrease in the moderate left pleural effusion and no pneumothorax. Cardiothoracic surgery consult to instill alteplase. Leukocytosis secondary to above pulmonary hypertension Hypertension Hyperlipidemia Diabetes mellitus type 2 non-insulin dependent Hypothyroidism Bipolar disorder Restless leg syndrome Plan: patient's medications, labs, chest x-ray reviewed Patient has a left pigtail catheter in place we will consult cardiothoracic surgery for installation of alteplase Patient has completed course of Rocephin On room air We will continue to follow I have personally seen and examined the patient, performed the documentation and the assessment and plan as written. Number of minutes spent on the visit: 10. 5 Time with Patient: Less than 30
[2022-11-24 17:07] LABS: Glucose,Whole Blood 89 mg/dL (70-110)
[2022-11-24 20:12] LABS: Glucose,Whole Blood 148 mg/dL (70-110)
[2022-11-24] MEDS: OLANZapine 5 MG TAB PO SCH (21:02)
[2022-11-24] MEDS: ATORVASTATIN 20 MG TAB PO SCH (21:02)
[2022-11-25] MEDS: HEPARIN SODIUM,PORCINE/PF 5,000 UNIT/0.5 ML SYRINGE SQ SCH ×4 (00:21→23:35)
[2022-11-25] MEDS: LEVOTHYROXINE 50 MCG TAB PO SCH (06:25)
[2022-11-25 07:16] LABS: Glucose,Whole Blood 150 mg/dL (70-110)
--- NOTE | 2022-11-25 08:11 | XR ---
EXAMINATION TYPE: XR chest 1V portable DATE OF EXAM: 11/25/2022 7:38 AM COMPARISON: Chest radiograph from one day prior. TECHNIQUE: XR chest 1V portable Portable AP radiograph of the chest. CLINICAL INDICATION:Female, 67 years old with history of Left pleural effusion; FINDINGS: Lungs/Pleura: Persistent left pleural effusion with scattered hazy opacities. There is a pigtail cath eter in place and projects over the lower left lung. No evidence of pneumothorax. Scattered hazy opac ities are seen throughout the lungs. Pulmonary vascularity: Unremarkable. Heart/mediastinum: Cardiomediastinal silhouette is unremarkable. Musculoskeletal: No acute osseous pathology. IMPRESSION: Left pleural effusion with pigtail catheter in place.
[2022-11-25] MEDS: INSULIN ASPART (NovoLOG) 100 UNIT/ML VIAL SQ SCH ×3 (08:15→17:12)
[2022-11-25] MEDS: ASPIRIN 81 MG PO SCH (08:16)
[2022-11-25] MEDS: ASCORBIC ACID 500 MG TAB PO SCH (08:16)
[2022-11-25] MEDS: atenoloL 25 MG TAB PO SCH (08:16)
[2022-11-25] MEDS: lamoTRIgine 100 MG TAB PO SCH (08:17)
[2022-11-25] MEDS: CHOLECALCIFEROL 25 MCG (1000 IU) TABLET PO SCH (08:17)
[2022-11-25] MEDS: LITHIUM CARBONATE 300 MG CAP PO SCH (08:17)
[2022-11-25] MEDS: TRIHEXYPHENIDYL 2 MG TAB PO SCH ×4 (08:18→21:16)
[2022-11-25] MEDS: MELOXICAM 7.5 MG TAB PO SCH (08:18)
[2022-11-25] MEDS: LORATADINE 10 MG TAB PO SCH (08:18)
[2022-11-25] MEDS: PANTOPRAZOLE 40 MG/10 ML VIAL IV SCH (08:18)
[2022-11-25] MEDS: PARoxetine 10 MG TAB PO SCH ×3 (08:19→21:16)
[2022-11-25] MEDS: OXYBUTYNIN CHLORIDE 5 MG TAB PO SCH ×2 (08:19→21:16)
[2022-11-25] MEDS ORDERED: DORNASE ALFA 5 MG in SODIUM CHLORIDE 0.9% 50 ML IRRIGATION ONE (09:00)
[2022-11-25] MEDS ORDERED: ALTEPLASE 10 MG in SODIUM CHLORIDE 0.9% 50 ML IRRIGATION ONE (09:00)
--- NOTE | 2022-11-25 09:23 | P.PN ---
Subjective Progress Note Date: 11/25/22 Principal diagnosis: Community-acquired pneumonia, loculated left pleural effusion. Previous medical history of hypertension, hyperlipidemia, diabetes mellitus type 2, hypothyroid ism, anxiety/depression/bipolar disorder/schizoaffective disorder, GERD, hiatal hernia, lifetime nonsmoker, obstructive sleep apnea without home CPAP use, obesity, degenerative joint disease, memory impairment POD #2 placement of left-sided pigtail catheter by interventional radiology The patient was seen and examined sitting up in a recliner on the medical surgical unit in no acute distress. Denies pain or shortness of breath except with deep inspiration. Left-sided pigtail catheter present to continuous wall suction, 500 mL thin serous drainage in the last 24 hours. Patient did have fir st installation of lytic therapy yesterday. Chest x-ray reviewed. Objective - Vital Signs Vital signs: Vital Signs Temp 98.7 F 11/25/22 07:11 Pulse 90 11/25/22 07:11 Resp 16 11/25/22 07:11 BP 142/89 11/25/22 07:11 Pulse Ox 93 L 11/25/22 07:11 FiO2 Intake & Output 11/24/22 11/25/22 11/25/22 18:59 06:59 18:59 Output Total 380 50 Balance -380 -50 Output: Chest Tube Drainage 380 50 Chest Tube Left Posterior 380 50 Chest Other: Voiding Method Toilet Toilet # Voids 2 1 1 - Exam CONSTITUTIONAL: Appears comfortable, cooperative, no acute distress RESPIRATORY: Lungs sounds diminished bilaterally, left greater than right. Respirations even, nonlabored. Currently on room air with oxygen saturation 92%. Able to achieve 750 mL on incentive spirometry. Strong cough. CARDIOVASCULAR: S1, S2 present. Regular rate and rhythm. GASTROINTESTINAL: Abdomen soft, nontender, nondistended. Active bowel sounds present 4 quadrants. Tolerating diet GENITOURINARY: Continues to void INTEGUMENTARY: Skin is warm and dry NEUROLOGIC: Cranial nerves II through XII intact MUSKULOSKELETAL: Able to move all extremities, strength equal bilaterally PSYCHIATRIC: Alert and oriented to person place and time, appropriate affect, intact judgment and insight INVASIVE LINES AND TUBES: Left pigtail catheter present and connected to wall suction, no air leaks present, 50 mL serous drainage overnight, 500 mL in the last 24 hours - Allied health notes Allied health notes reviewed: nursing - Labs CBC & Chem 7: 11/23/22 04:50 11/23/22 04:50 Labs: Abnormal Lab Results - Last 24 Hours (Table) 11/24/22 11/24/22 11/25/22 Range/Units 11:26 20:10 07:14 POC Glucose (mg/dL) 182 H 148 H 150 H (70-110) mg/dL Microbiology - Last 24 Hours (Table) 11/23/22 11:40 Acid Fast Bacilli Smear - Final Pleural Fluid Acid Fast Bacilli Culture - Preliminary 11/20/22 10:00 Blood Culture - Preliminary Blood No Growth after 96 hours 11/20/22 10:15 Blood Culture - Preliminary Blood No Growth after 96 hours 11/23/22 11:40 Gram Stain - Preliminary Pleural Fluid Body Fluid Culture - Preliminary - Imaging and Cardiology Chest x-ray: report reviewed, image reviewed Assessment and Plan Assessment: 1. Community-acquired pneumonia 2. Loculated left pleural effusion, likely secondary to above, status post left chest pigtail catheter placement by interventional radiology 3. Hypertension 4. Hyperlipidemia 5. Diabetes mellitus type 2 6. Hypothyroidism 7. Anxiety 8. History of depression 9. History of bipolar disorder 10. History of schizoaffective disorder 11. GERD 12. Hiatal hernia 13. Lifetime nonsmoker 14. Obstructive sleep apnea without home CPAP use 15. Obesity 16. Degenerative joint disease 17. Memory impairment Plan: 1. Will instill second dose of lytic therapy today, monitor drainage 2. Daily chest x-rays 3. Encourage incentive spirometry use 4. Increase activity as tolerated 5. Pain control per current medication regimen 6. Medical management of other comorbidities per primary care service 7. More recommendations to follow
[2022-11-25 11:11] LABS: Glucose,Whole Blood 176 mg/dL (70-110)
--- NOTE | 2022-11-25 11:26 | P.PN ---
Subjective Progress Note Date: 11/25/22 Principal diagnosis: Left lower lobe pneumonia and complicated loculated pleural effusion I'm seeing this patient today 11/20/2022 in consultation for a left lower lobe pneumonia. This 67-year-old female with a pertinent medical history of diabetes mellitus, hypertension, hyperlipidemia, hypothyroidism, obstructive sleep apnea with CPAP, never smoker, macular degeneration, anxiety, bipolar, schizoaffective disorder. Patient presented to the emergency department on November 20 for the chief complaint of abdominal pain over the last 3 days that radiated to the ipsilateral shoulder and troubles walking. Patient also had some associated nausea and vomiting. patient denies change in bowel habits, blood in stool, hematemesis, fever, cough, hemoptysis. These findings prompted a workup with an abdominal ultrasound which revealed hepatomegaly with hepatic steatosis. enhanced CT of abdomen and pelvis which showed small to moderate left pleural effusion with scalped margins suggesting areas of loculation, extensive consolidation of the left base, tree-in-bud nodularity at the right base which could reflect aspiration or bronchiolitis, a large hiatal hernia, and umbilical hernia measuring 5 cm, left-sided colonic diverticulosis without diverticulitis, and a moderate stool burden. a chest CTnonenhanced showed COPD changes with mild emphysema and pulmonary arterial hypertension, small to moderate left pleural effusion with loculation redemonstrated, extensive left basilar and left infrahilar airspace diseasethat could correlate with a peripneumonic Effusion or early empyema, additional nodularity entry and bilateral obesity throughout the right lung, and a moderate to large hiatal hernia. patient's CBC showed some leukocytosis with a WBC count of 17.8, hemoglobin 10.7, hematocrit 33, platelets 398,000. Patient's BMP shows a sodium of 134, potassium 4.8, chloride 101, serum CO2 26, BUN 15, creatinine 0.74, glucose 173. There is some mild bleeding elevated LFTs. Procalcitonin was moderately high 0.18. Patient was negative for influenza, RSV, coronavirus. patient is currently sitting up in bed, on room air, and no acute distress. she is maintained on Ventolin nebulizations, empiric azithromycin and ceftriaxone. The patient does have some tardive dyskinesia and lip smacking on examination and she is on multiple different antipsychotic medi cations. Patient is afebrile. Vital signs are stable. The patient is seen today 11/21/2022 in follow-up on the regular medical floor. She is currently resting comfortably in bed. Awake and alert in no acute distress. She is maintaining O2 saturations in the 90s on room air. We had recommended a pigtail catheter insertion for her loculated pleural effusion on the left chest however when she got down to the Department she declined to have a catheter placed. Her daughter is aware. She may reconsider and maybe interventional radiology to place a catheter on Wednesday11/23/2022. Today's chest x-ray reveals generalized haziness to the left mid and lower lung consistent with loculated pleural effusion and airspace disease. White count 27.3. Hemoglobin 10.7. Sodium 135. Potassium 4.3. BUN 9. Creatinine 0.8. Glucose 200. C-reactive protein 34.9. She remains on ceftriaxone and azithromycin. Patient was reevaluated today on 11/22/2022, surprisingly she is doing better than expected considering his pneumonia and left loculated pleural effusion. Patient is still undecided about the pigtail catheter placement, in the meantime she is receiving antibiotics no cough no wheezing no shortness of breath no chest pain, patient is on room air. She does have leukocytosis with WBC count of 25.9 hemoglobin is 10.3, electrolytes are normal I'm reevaluating this patient today on 11/23/2022 in follow-up on a general medical floor. She is lying in bed, on room air, in no acute distress. She is agreeable to the pigtail catheter insertion today. most recent chest x-ray from 11/22/2022 shows some unchanged left mid to lower lung haziness that is consistent with the known loculated pleural effusion. patient is currently afebrile. patient's CBC from today shows some leukocytosis with WBC count of 23.6, hemoglobin 10.4, hematocrit 33.9, platelets 392,000. BMP from today shows a sodium 136, potassium 4.2, chloride 102, serum CO2 24.5, BUN 6.9, creatinine 0.8, glucose 164. coagulation profile is within defined limits. she continues to receive Rocephin and. DuoNeb treatments. vital signs remain stable. I'm reevaluating this patient today on 11/24/2022 in follow-up on a general [facility] floor. She is currently sitting up in bed, on room air, in no acute distress. Patient has a pigtail catheter in place draining, a serous colored fluid, with a total of 270 mL of output since insertion by Dr. Perez on 11/23/2022. The pigtail is attached to suction at -20 Cm of Water. Patient's repeat chest x-ray from today shows interval placement of the left pleural pigtail catheter with decreased size of the moderate left pleural effusion, no pneumothorax, mild pulmonary vascular congestion with patchy left mid and lower lung consolidation. Pleural fluid cultures are pending. No new labs to review today. Patient finished course of Rocephin. Patient has remained afebrile. Brandon randle is receiving Ventolin nebulizations as needed. Vital signs remain stable. I'm reevaluating this patient today 11/26/2022 in follow-up on a general medical floor. Patient is currently sitting up in bed, on room air, and in no acute distress. Patient's left pigtail catheter remains in place, draining a serous colored fluid, with a total output of 490 mls over the last 24 hours. The catheter remains to suction at -20 cm water. Chest x-ray from today shows an improved left pleural effusion with pigtail catheter in place. Cardiothoracic did instill the catheter with alteplase yesterday, and plans to instill another dose of fibrinolytic therapy today. Pleural fluid cultures show no growth at this time. Blood cultures remain negative at 96 hours. No new CBC or BMP to review today. Patient's procalcitonin level 0.18 arrival, and this is being repeated. Patient remains afebrile, and her vital signs remain stable. Objective - Vital Signs Vital signs: Vital Signs Temp 98.7 F 11/25/22 07:11 Pulse 90 11/25/22 07:11 Resp 16 11/25/22 07:11 BP 142/89 11/25/22 07:11 Pulse Ox 93 L 11/25/22 07:11 FiO2 Intake & Output 11/24/22 11/25/22 11/25/22 18:59 06:59 18:59 Output Total 380 50 Balance -380 -50 Output: Chest Tube Drainage 380 50 Chest Tube Left Posterior 380 50 Chest Other: Voiding Method Toilet Toilet Toilet # Voids 2 1 1 - Exam Physical Exam: a 67-year-old white female, in no acute distress. Head: Atraumatic normocephalic. HEENT:[Neck is supple.] [No neck masses.] [No thyromegaly.] [No JVD.] Chest: [Diminished breath sounds and crackles at the left base, right side is clear. on room air. Left sided pigtail in place, and to Pleur-evac -20 cm water Cardiac Exam: [Normal S1 and S2, no S3 gallop, no murmur.] Abdomen: [Soft, nontender, no megaly, no rebound, no guarding, normal bowel s ounds.] Extremities: [No clubbing, no edema, no cyanosis.] Neurological Exam: [No focal neurologic deficit.] Alert and oriented 3. no obvious dyskinesia movements on today's examination. Psychiatric: Normal mood affect Skin: No rashes. - Labs CBC & Chem 7: 11/23/22 04:50 11/23/22 04:50 Labs: Abnormal Lab Results - Last 24 Hours (Table) 11/24/22 11/24/22 11/25/22 Range/Units 11:26 20:10 07:14 POC Glucose (mg/dL) 182 H 148 H 150 H (70-110) mg/dL 11/25/22 Range/Units 11:09 POC Glucose (mg/dL) 176 H (70-110) mg/dL Microbiology - Last 24 Hours (Table) 11/23/22 11:40 Acid Fast Bacilli Smear - Final Pleural Fluid Acid Fast Bacilli Culture - Preliminary 11/20/22 10:00 Blood Culture - Preliminary Blood No Growth after 96 hours 11/20/22 10:15 Blood Culture - Preliminary Blood No Growth after 96 hours 11/23/22 11:40 Gram Stain - Preliminary Pleural Fluid Body Fluid Culture - Preliminary Assessment and Plan Assessment: community-acquired pneumonia. Patient has received 4 doses Rocephin. We will recheck procalcitonin and manage antibiotics accordingly. Loculated left pleural effusion. Patient has a left pigtail catheter in place draining a serous fluid. Total of 270 mL of output and since insertion yesterday pigtail catheter is currently to suction to water. Repeat chest x-ray today shows a decrease in the moderate left pleural effusion and no pneumothorax. Cardiothoracic surgery consult to instill alteplase. Patient received 1 dose of alteplase yesterday. Patient had an additional 490 mL of serous output over the last 24 hours. Leukocytosis secondary to above pulmonary hypertension Hypertension Hyperlipidemia Diabetes mellitus type 2 non-insulin dependent Hypothyroidism Bipolar disorder Restless leg syndrome Plan: patient's medications, labs, chest x-ray reviewed Patient has a left pigtail catheter in place Cardiothoracic plans to instill another dose of alteplase today Patient has received 4 doses Rocephin, we will recheck procalcitonin level and manage antibiotics accordingly. On room air We will continue to follow I have personally seen and examined the patient, performed the documentation and the assessment and plan as written. Number of minutes spent on the visit: 10. 5 Time with Patient: Less than 30
[2022-11-25 11:31] LABS: HCT 33.9 % (34.0-46.0); HGB 10.8 gm/dL (11.4-16.0); MCH 25.6 pg (25.0-35.0); MCHC 31.9 g/dL (31.0-37.0); MCV 80.1 fL (80.0-100.0); Platelet Count 452 k/uL (150-450); Poikilocytosis Slight; RBC 4.23 m/uL (3.80-5.40); RDW 13.7 % (11.5-15.5); WBC 19.2 k/uL (3.8-10.6)
[2022-11-25] MEDS: ACETAMINOPHEN TAB 325 MG TAB PO PRN (11:47)
[2022-11-25 12:16] LABS: ALT 437 U/L (4-34); AST 420 U/L (14-36); African American GFR (CKD) >90 (>60 ml/min/1.73 sqM); Alkaline Phosphatase 302 U/L (38-126); Anion Gap 9 mmol/L; Blood Urea Nitrogen 10 mg/dL (7-17); Calcium 8.5 mg/dL (8.4-10.2); Carbon Dioxide 24 mmol/L (22-30); Chloride 105 mmol/L (98-107); Globulin 2.9 g/dL; Glucose 162 mg/dL (74-99); Non-African American GFR(CKD) >90 (>60 ml/min/1.73 sqM); Potassium 4.4 mmol/L (3.5-5.1); Sodium 138 mmol/L (137-145); Total Bilirubin 0.5 mg/dL (0.2-1.3); Total Protein 5.9 g/dL (6.3-8.2)
--- NOTE | 2022-11-25 14:55 | P.PN ---
Subjective Progress Note Date: 11/25/22 (delayed charting seen at 1050) Patient is a 67 year old woman with history of COPD with pulmonary hypertension, HTN, HLD, DM, hypothyroidism, bipolar disorder, restless leg syndrome presented for evaluation of chest pain. In the emergency room, patient wass afebrile, 129/86, heart rate 93, 92% on room air. CBC shows leukocytosis to 17.8, anemia down to 10.7. Laboratory analysis demonstrated a sodium of 134, AST at 65, elevated ALT at 120, elevated alkaline phosphatase 159, troponin was less than 0.012, Influenza A, B, RSV, Covid were negative, and labaratory analyziz was otherwise unremarkable. VBG shows a pH of 7.35, pCO2 of 46. Gallbladder ultrasound shows hepatomegaly with hepatic steatosis. CT of the abdomen/pelvis shows small to moderate fat-containing umbilical hernia, moderate to large hiatal hernia involving two thirds of the stomach and lower chest, left-sided colonic diverticulosis with a redundant sigmoid colon. CT of the chest shows left pleural effusion with evidence of loculation, extensive left base consolidation concerning for pneumonia with parapneumonic effusion versus empyema, tree and bud nodularity at the right base. EKG shows sinus rhythm with a normal axis, no evidence of ischemia. Patient was admitted for sepsis due to pneumonia. She was started on ceftriaxone/azithromycin, and received 1 dose of metronidazole in the emergency room. He was continued on IV fluids. Pulmonary and CT surgery were consulted. She ultimately had wax catheter placed on 11/23/22 and required TPA instillation from cardiothoracic surgery. Patient seen and examined at bedside. She does complain of some left-sided burning pain and she currently has TPA instilled. She denies any chest discomfort when TPA is not instilled. She denies any shortness of breath. She does complain of feeling scared and uncertain of what is going on. General: nontoxic, no distress, appears at stated age Derm: warm, dry Head: atraumatic, normocephalic, symmetric Eyes: EOMI, no lid lag, anicteric sclera Mouth: no lip lesion, mucus membranes moist Cardiovascular: S1S2 reg, no murmur, positive posterior tibial pulse bilateral, Lungs: CTA bilateral, no rhonchi, no rales , no accessory muscle use, chest tube in place with blood tinged fluid, 430 mls out of 24 hours Abdominal: soft, nontender to palpation, no guarding, no appreciable organomegaly Ext: no gross muscle atrophy, no edema, no contractures Neuro: CN II-XI grossly intact, no focal neuro deficits Psych: Alert, oriented, appears anxious and scared Assessment/plan: Complicated pneumonia with empyema and sepsis, possible gram-negative -Case discussed with Dr. He. We'll resume Rocephin, has completed Zithromax 2 days, unlikely to be atypical pneumonia. -Await pleural fluid cultures -Exudative effusion via light's criteria -Pain control - CT surgery recs, TPA given today: CT mgt per CT surgery Transaminitis - CHeck liver US, to ensure no abscess formation - follow LFTs - Suspect due to illness, but patient is on zyprexa and multiple other medications that can lead to transamintiis. HTN - atenolol - folow BP DM 2 - hold metoformin - SSI - follow BS, Highest blood sugar is 176 in 24 horus. Hypothyroidism -synothroid Pulm HTN RLS Bipolar disorder - case discussed with GRANT provider Dr. Almonte- could go to [facility] on discharge if does not need CT caniser, if couls empty CT once daily when nursing avaliable could be done at [facility], if needs Chest tube chamber on idshcarge would consider SNF. DVT: heparin Active Medications Generic Name Dose Route Start Last Admin Trade Name Freq PRN Reason Stop Dose Admin Acetaminophen 650 mg 11/21/22 13:15 11/25/22 11:47 Acetaminophen Tab 325 Mg Tab PO 650 mg Q4HR PRN Administration Fever and/ or Mild Pain Albuterol Sulfate 2.5 mg 11/20/22 13:14 Albuterol Nebulized 2.5 Mg/3 Ml INHALATION RT-QID PRN Shortness Of Breath Ascorbic Acid 500 mg 11/21/22 09:00 11/25/22 08:16 Ascorbic Acid 500 Mg Tab PO 500 mg DAILY JUANITO Administration Aspirin 81 mg 11/21/22 09:00 11/25/22 08:16 Aspirin 81 Mg PO 81 mg DAILY JUANITO Administration Atenolol 12.5 mg 11/21/22 09:00 11/25/22 08:16 Atenolol 25 Mg Tab PO 12.5 mg DAILY JUANITO Administration Atorvastatin Calcium 20 mg 11/20/22 21:00 11/24/22 21:02 Atorvastatin 20 Mg Tab PO 20 mg HS JUANITO Administration Cholecalciferol 50 mcg 11/21/22 09:00 11/25/22 08:17 Cholecalciferol 25 Mcg (1000 Iu) Tablet PO 50 mcg DAILY JUANITO Administration Heparin Sodium (Porcine) 5,000 unit 11/21/22 16:00 11/25/22 08:16 Heparin Sodium,Porcine/Pf 5,000 Unit/0.5 Ml Syringe SQ 5,000 unit Q8HR JUANITO Administration Ceftriaxone Sodium 2 gm/ 50 mls @ 100 mls/hr 11/25/22 12:00 11/25/22 13:11 Sodium Chloride IVPB 100 mls/hr Q24HR JUANITO Administration Protocol Ibuprofen 400 mg 11/20/22 11:24 Ibuprofen 400 Mg Tab PO Q6HR PRN Mild Pain or Fever > 100.5 Insulin Aspart 0 unit 11/20/22 17:30 11/25/22 13:11 Insulin Aspart (Novolog) 100 Unit/Ml Vial SQ 2 unit AC-TID JUANITO Administration Protocol Lamotrigine 200 mg 11/21/22 09:00 11/25/22 08:17 Lamotrigine 100 Mg Tab PO 200 mg DAILY JUANITO Administration Levothyroxine Sodium 50 mcg 11/21/22 06:30 11/25/22 06:25 Levothyroxine 50 Mcg Tab PO 50 mcg DAILY@0630 JUANITO Administration Binford Carbonate 600 mg 11/21/22 09:00 11/25/22 08:17 Binford Carbonate 300 Mg Cap PO 600 mg DAILY JUANITO Administration Loratadine 10 mg 11/21/22 09:00 11/25/22 08:18 Loratadine 10 Mg Tab PO 10 mg DAILY JUANITO Administration Meloxicam 15 mg 11/21/22 09:00 11/25/22 08:18 Meloxicam 7.5 Mg Tab PO 15 mg DAILY JUANITO Administration Miscellaneous Information 1 each 11/20/22 09:49 Pneumonia Protocol Utilized 1 Each Misc PO ONCE PRN Per Protocol Morphine Sulfate 2 mg 11/20/22 11:26 11/24/22 04:21 Morphine Sulfate 2 Mg/Ml Syringe IVP 2 mg Q4HR PRN Administration Severe Pain (Scale 7 to 10) Naloxone HCl 0.2 mg 11/20/22 11:24 Naloxone 0.4 Mg/Ml 1 Ml Vial IV Q2M PRN Opioid Reversal Olanzapine 5 mg 11/20/22 21:00 11/24/22 21:02 Olanzapine 5 Mg Tab PO 5 mg HS JUANITO Administration Ondansetron HCl 4 mg 11/20/22 11:24 Ondansetron 4 Mg/2 Ml Vial IVP Q8HR PRN Nausea And Vomiting Oxybutynin Chloride 5 mg 11/20/22 21:00 11/25/22 08:19 Oxybutynin Chloride 5 Mg Tab PO 5 mg BID JUANITO Administration Pantoprazole Sodium 40 mg 11/21/22 09:00 11/25/22 08:18 Pantoprazole 40 Mg/10 Ml Vial IV 40 mg DAILY JUANITO Administration Paroxetine HCl 10 mg 11/20/22 16:00 11/25/22 08:19 Paroxetine 10 Mg Tab PO 10 mg TID JUANITO Administration Ropinirole HCl 0.5 mg 11/20/22 21:00 11/24/22 21:02 Ropinirole Hcl 0.25 Mg Tab PO 0.5 mg HS JUANITO Administration Trihexyphenidyl HCl 2 mg 11/20/22 18:00 11/25/22 13:11 Trihexyphenidyl 2 Mg Tab PO 2 mg QID JUANITO Administration Objective - Vital Signs Vital signs: Vital Signs Temp 97.8 F 11/25/22 12:15 Pulse 77 11/25/22 12:15 Resp 16 11/25/22 12:15 BP 119/81 11/25/22 12:15 Pulse Ox 95 11/25/22 12:15 FiO2 Intake & Output 11/24/22 11/25/22 11/25/22 18:59 06:59 18:59 Output Total 380 50 Balance -380 -50 Weight 97.522 kg Output: Chest Tube Drainage 380 50 Chest Tube Left Posterior 380 50 Chest Other: Voiding Method Toilet Toilet Toilet # Voids 2 1 1 - Labs CBC & Chem 7: 11/25/22 11:10 11/25/22 11:10 Labs: Abnormal Lab Results - Last 24 Hours (Table) 11/24/22 11/25/22 11/25/22 Range/Units 20:10 07:14 11:09 WBC (3.8-10.6) k/uL Hgb (11.4-16.0) gm/dL Hct (34.0-46.0) % Plt Count (150-450) k/uL Glucose (74-99) mg/dL POC Glucose (mg/dL) 148 H 150 H 176 H (70-110) mg/dL AST (14-36) U/L ALT (4-34) U/L Alkaline Phosphatase (38-126) U/L Total Protein (6.3-8.2) g/dL Albumin (3.5-5.0) g/dL 11/25/22 11/25/22 Range/Units 11:10 11:10 WBC 19.2 H (3.8-10.6) k/uL Hgb 10.8 L (11.4-16.0) gm/dL Hct 33.9 L (34.0-46.0) % Plt Count 452 H (150-450) k/uL Glucose 162 H (74-99) mg/dL POC Glucose (mg/dL) (70-110) mg/dL AST 420 H (14-36) U/L ALT 437 H (4-34) U/L Alkaline Phosphatase 302 H (38-126) U/L Total Protein 5.9 L (6.3-8.2) g/dL Albumin 3.0 L (3.5-5.0) g/dL Microbiology - Last 24 Hours (Table) 11/23/22 12:05 Anaerobic Culture - Preliminary Pleural Fluid 11/20/22 10:00 Blood Culture - Preliminary Blood No Growth after 120 hours 11/20/22 10:15 Blood Culture - Preliminary Blood No Growth after 120 hours 11/23/22 11:40 Gram Stain - Preliminary Pleural Fluid Body Fluid Culture - Preliminary 11/23/22 11:40 Acid Fast Bacilli Smear - Final Pleural Fluid Acid Fast Bacilli Culture - Preliminary
[2022-11-25 17:11] LABS: Glucose,Whole Blood 127 mg/dL (70-110)
[2022-11-25 20:24] LABS: Glucose,Whole Blood 143 mg/dL (70-110)
[2022-11-25] MEDS: ATORVASTATIN 20 MG TAB PO SCH (21:16)
[2022-11-25] MEDS: OLANZapine 5 MG TAB PO SCH (21:16)
[2022-11-25] MEDS: MORPHINE SULFATE 2 MG/ML SYRINGE IVP PRN (21:17)
[2022-11-26] MEDS: LEVOTHYROXINE 50 MCG TAB PO SCH (06:07)
[2022-11-26 06:36] LABS: ALT 314 U/L (4-34); AST 169 U/L (14-36); African American GFR (CKD) 90 (>60 ml/min/1.73 sqM); Albumin 2.8 g/dL (3.5-5.0); Alkaline Phosphatase 261 U/L (38-126); Anion Gap 6 mmol/L; Blood Urea Nitrogen 11 mg/dL (7-17); Calcium 8.2 mg/dL (8.4-10.2); Carbon Dioxide 27 mmol/L (22-30); Chloride 104 mmol/L (98-107); Globulin 2.7 g/dL; Glucose 126 mg/dL (74-99); Magnesium 2.4 mg/dL (1.6-2.3); Non-African American GFR(CKD) 78 (>60 ml/min/1.73 sqM); Potassium 4.5 mmol/L (3.5-5.1); Sodium 137 mmol/L (137-145); Total Bilirubin 0.4 mg/dL (0.2-1.3); Total Protein 5.5 g/dL (6.3-8.2)
[2022-11-26 06:37] LABS: HCT 32.9 % (34.0-46.0); HGB 10.5 gm/dL (11.4-16.0); Hypochromasia Slight; MCHC 31.7 g/dL (31.0-37.0); Mean Platelet Volume 7.4; Platelet Count 428 k/uL (150-450); Poikilocytosis Slight; RBC 4.02 m/uL (3.80-5.40); RDW 13.7 % (11.5-15.5); WBC 16.7 k/uL (3.8-10.6)
[2022-11-26 07:24] LABS: Glucose,Whole Blood 146 mg/dL (70-110)
--- NOTE | 2022-11-26 08:34 | XR ---
EXAMINATION TYPE: XR chest 1V portable DATE OF EXAM: 11/26/2022 6:59 AM COMPARISON: Chest radiographs from 11/25/2022 TECHNIQUE: XR chest 1V portable Portable AP radiograph of the chest. CLINICAL INDICATION:Female, 67 years old with history of pleural effusion; FINDINGS: Lungs/Pleura: Blunting of the left costophrenic angle with associated atelectasis. Pulmonary vascularity: Pulmonary vascular congestion. Heart/mediastinum: Cardiomediastinal silhouette is unremarkable. Musculoskeletal: No acute osseous pathology. Left catheter remains in similar position projecting over the lower thorax. IMPRESSION: Pulmonary vascular congestion and left pleural effusions.
[2022-11-26] MEDS ORDERED: ALTEPLASE 10 MG in SODIUM CHLORIDE 0.9% 50 ML IRRIGATION ONE (08:42)
[2022-11-26] MEDS ORDERED: DORNASE ALFA 5 MG in SODIUM CHLORIDE 0.9% 50 ML IRRIGATION ONE (08:42)
--- NOTE | 2022-11-26 08:52 | P.PN ---
Subjective Progress Note Date: 11/26/22 Principal diagnosis: Community-acquired pneumonia, loculated left pleural effusion. Past medical history significant for hypertension, hyperlipidemia, diabetes mellitus type 2, hypothyroidism, anxiety/depression/bipolar disorder/schizoaffective disorder, GERD, hiatal hernia, lifetime nonsmoker, obstructive sleep apnea without home CPAP use, obesity, degenerative joint disease, memory impairment POD #3 placement of left-sided pigtail catheter by interventional radiology The patient was seen and examined in follow-up today at her bedside on the medical oncology unit. Currently she is lying in bed, is awake, alert, and oriented 3. Denies any complaints of pain or shortness of breath this time. She is currently nothing by mouth for an ultrasound of her liver schedule today. Oxygen saturations are 95% on room air and she is achieving 1000 mL on her incentive spirometry with encouragement. Left pleural pigtail catheter remains in place to low continuous wall suction -20 cm H2O. Intermittent air leak is present. Draining thin serous drainage with 250 mL output in the last 24 hours. She has received 2 doses of alteplase/dornase over the past couple of days and has tolerated well. Chest x-ray was reviewed. She has been afebrile in the last 24 hours. Objective - Vital Signs Vital signs: Vital Signs Temp 98.5 F 11/26/22 07:20 Pulse 83 11/26/22 07:20 Resp 16 11/26/22 07:20 BP 116/94 11/26/22 07:20 Pulse Ox 92 L 11/26/22 07:20 FiO2 Intake & Output 11/25/22 11/26/22 11/26/22 18:59 06:59 18:59 Intake Total 50 Output Total 125 Balance -75 Weight 97.522 kg Intake: Intake, IV Titration 50 Amount cefTRIAXone 2 gm In 50 Sodium Chloride 0.9% 50 ml @ 100 mls/hr IVPB Q24HR [facility] Rx#:[id number] Output: Chest Tube Drainage 125 Chest Tube Left Posterior 125 Chest Other: Voiding Method Toilet Toilet # Voids 1 2 - Exam CONSTITUTIONAL: Appears comfortable, cooperative, no acute distress. RESPIRATORY: Lungs sounds diminished bilaterally, left greater than right. Respirations symmetrical and nonlabored. Currently on room air with oxygen saturation 95%. Able to achieve 1000 mL on incentive spirometry. Strong cough. CARDIOVASCULAR: S1, S2 present. Regular rate and rhythm. GASTROINTESTINAL: Abdomen soft, nontender, nondistended. Active bowel sounds present 4 quadrants. Nothing by mouth at this time. GENITOURINARY: Continues to void. INTEGUMENTARY: Skin is warm and dry, no evidence of clubbing or cyanosis. NEUROLOGIC: Cranial nerves II through XII intact. MUSKULOSKELETAL: Able to move all extremities, strength equal bilaterally. PSYCHIATRIC: Alert and oriented to person place and time, appropriate affect, intact judgment and insight. INVASIVE LINES AND TUBES: Left pigtail catheter present and connected to wall suction, intermittent air leak present, 250 mL output in the last 24 hours. - Allied health notes Allied health notes reviewed: nursing - Labs CBC & Chem 7: 11/26/22 05:46 11/26/22 05:46 Labs: Abnormal Lab Results - Last 24 Hours (Table) 11/25/22 11/25/22 11/25/22 Range/Units 11:09 11:10 11:10 WBC 19.2 H (3.8-10.6) k/uL Hgb 10.8 L (11.4-16.0) gm/dL Hct 33.9 L (34.0-46.0) % Plt Count 452 H (150-450) k/uL Glucose 162 H (74-99) mg/dL POC Glucose (mg/dL) 176 H (70-110) mg/dL Calcium (8.4-10.2) mg/dL Magnesium (1.6-2.3) mg/dL AST 420 H (14-36) U/L ALT 437 H (4-34) U/L Alkaline Phosphatase 302 H (38-126) U/L Total Protein 5.9 L (6.3-8.2) g/dL Albumin 3.0 L (3.5-5.0) g/dL 11/25/22 11/25/22 11/26/22 Range/Units 17:08 20:23 05:46 WBC 16.7 H (3.8-10.6) k/uL Hgb 10.5 L (11.4-16.0) gm/dL Hct 32.9 L (34.0-46.0) % Plt Count (150-450) k/uL Glucose (74-99) mg/dL POC Glucose (mg/dL) 127 H 143 H (70-110) mg/dL Calcium (8.4-10.2) mg/dL Magnesium (1.6-2.3) mg/dL AST (14-36) U/L ALT (4-34) U/L Alkaline Phosphatase (38-126) U/L Total Protein (6.3-8.2) g/dL Albumin (3.5-5.0) g/dL 11/26/22 11/26/22 Range/Units 05:46 07:23 WBC (3.8-10.6) k/uL Hgb (11.4-16.0) gm/dL Hct (34.0-46.0) % Plt Count (150-450) k/uL Glucose 126 H (74-99) mg/dL POC Glucose (mg/dL) 146 H (70-110) mg/dL Calcium 8.2 L (8.4-10.2) mg/dL Magnesium 2.4 H (1.6-2.3) mg/dL AST 169 H (14-36) U/L ALT 314 H (4-34) U/L Alkaline Phosphatase 261 H (38-126) U/L Total Protein 5.5 L (6.3-8.2) g/dL Albumin 2.8 L (3.5-5.0) g/dL Microbiology - Last 24 Hours (Table) 11/23/22 12:05 Anaerobic Culture - Preliminary Pleural Fluid 11/20/22 10:00 Blood Culture - Preliminary Blood No Growth after 120 hours 11/20/22 10:15 Blood Culture - Preliminary Blood No Growth after 120 hours 11/23/22 11:40 Gram Stain - Preliminary Pleural Fluid Body Fluid Culture - Preliminary - Imaging and Cardiology Chest x-ray: report reviewed, image reviewed Assessment and Plan Assessment: 1. Community-acquired pneumonia 2. Loculated left pleural effusion, likely secondary to above, status post left chest pigtail catheter placement by interventional radiology 3. Hypertension 4. Hyperlipidemia 5. Diabetes mellitus type 2 6. Hypothyroidism 7. Anxiety 8. History of depression 9. History of bipolar disorder 10. History of schizoaffective disorder 11. GERD 12. Hiatal hernia, per computed tomography scan of the abdomen 13. Lifetime nonsmoker 14. Obstructive sleep apnea without home CPAP use 15. Obesity with a BMI of 33.7 kg/m 16. Degenerative joint disease 17. Memory impairment Plan: 1. Will instill third dose of lytic therapy today, continue to monitor drainage. 2. Continue to monitor daily chest x-rays. 3. Encourage incentive spirometry use 10 times every hour while awake. 4. Increase activity as tolerated, out of bed for all meals. 5. Pain control per current medication regimen. 6. Medical management of other comorbidities per primary care service. 7. More recommendations to follow based on patient's clinical course. Time with Patient: Greater than 30
[2022-11-26] MEDS: MELOXICAM 7.5 MG TAB PO SCH (08:56)
[2022-11-26] MEDS: INSULIN ASPART (NovoLOG) 100 UNIT/ML VIAL SQ SCH ×3 (08:57→17:47)
[2022-11-26] MEDS: lamoTRIgine 100 MG TAB PO SCH (08:57)
[2022-11-26] MEDS: atenoloL 25 MG TAB PO SCH (08:57)
[2022-11-26] MEDS: CHOLECALCIFEROL 25 MCG (1000 IU) TABLET PO SCH (08:57)
[2022-11-26] MEDS: LORATADINE 10 MG TAB PO SCH (08:58)
[2022-11-26] MEDS: PANTOPRAZOLE 40 MG/10 ML VIAL IV SCH (08:58)
[2022-11-26] MEDS: ASCORBIC ACID 500 MG TAB PO SCH (08:58)
[2022-11-26] MEDS: HYDROcodone/APAP 5-325MG 1 EACH TAB PO PRN ×2 (08:58→17:45)
[2022-11-26] MEDS: LITHIUM CARBONATE 300 MG CAP PO SCH (08:59)
[2022-11-26] MEDS: TRIHEXYPHENIDYL 2 MG TAB PO SCH ×4 (08:59→21:42)
[2022-11-26] MEDS: PARoxetine 10 MG TAB PO SCH ×3 (08:59→21:42)
[2022-11-26] MEDS: OXYBUTYNIN CHLORIDE 5 MG TAB PO SCH ×2 (09:00→21:42)
[2022-11-26] MEDS: HEPARIN SODIUM,PORCINE/PF 5,000 UNIT/0.5 ML SYRINGE SQ SCH ×3 (09:03→23:33)
[2022-11-26] MEDS: ASPIRIN 81 MG PO SCH (09:03)
--- NOTE | 2022-11-26 09:09 | US ---
EXAMINATION TYPE: US liver DATE OF EXAM: 11/26/2022 COMPARISON: NONE CLINICAL HISTORY: transaminitis. TECHNIQUE: Multiple sonographic images of the right upper quadrant are obtained. FINDINGS: EXAM MEASUREMENTS: Liver Length: 18.1 cm Gallbladder Wall: 0.3 cm CBD: 0.7 cm Right Kidney: 10.8 x 4.1 x 5.3 cm CELERY STRIPPER NOTES:Extremely limited due to patient body habitus. Patient is unable to reposition f or better imaging or hold breath. Only able to visualize liver intercostally. Pancreas: Obscured by bowel gas Liver: Increased attenuation, decreased visualization of vessels suggestive of fatty infiltrate. Enl arged in size. Echogenic. Limited visualization Gallbladder: Limited visualization of GB fundal region. Evidence for sonographic Woodson's sign: neg CBD: slight dilation Right Kidney: No hydronephrosis or masses seen IMPRESSION: 1. Hepatomegaly. 2. Borderline gallbladder wall thickening. Correlate for cholecystitis.
--- NOTE | 2022-11-26 09:45 | P.PN ---
Subjective Progress Note Date: 11/26/22 Patient is a 67 year old woman with history of COPD with pulmonary hypertension, HTN, HLD, DM, hypothyroidism, bipolar disorder, restless leg syndrome presented for evaluation of chest pain. In the emergency room, patient was afebrile, 129/86, heart rate 93, 92% on room air. CBC shows leukocytosis to 17.8, anemia down to 10.7. Laboratory analysis demonstrated a sodium of 134, AST at 65, elevated ALT at 120, elevated alkaline phosphatase 159, troponin was less than 0.012, Influenza A, B, RSV, Covid were negative, and labaratory analysis was otherwise unremarkable. VBG shows a pH of 7.35, pCO2 of 46. Gallbladder ultrasound shows hepatomegaly with hepatic steatosis. CT of the abdomen/pelvis shows small to moderate fat-containing umbilical hernia, moderate to large hiatal hernia involving two thirds of the stomach and lower chest, left-sided colonic diverticulosis with a redundant sigmoid colon. CT of the chest shows left pleural effusion with evidence of loculation, extensive left base consolidation concerning for pneumonia with parapneumonic effusion versus empyema, tree and bud nodularity at the right base. EKG shows sinus rhythm with a normal axis, no evidence of ischemia. Patient was admitted for sepsis due to pneumonia. She was started on ceftriaxone/azithromycin, and received 1 dose of metronidazole in the emergency room. He was continued on IV fluids. Pulmonary and CT surgery were consulted. She ultimately had pig tail catheter placed on 11/23/22 and required Lysis instillation from cardiothoracic surgery. Patient seen and examined at bedside. Having some pain at CT site, no nausea, no vomiting, no diarrhea. Denies shortness of breath. Still having cough. General: nontoxic, no distress, appears at stated age Derm: warm, dry Head: atraumatic, normocephalic, symmetric Eyes: EOMI, no lid lag, anicteric sclera Mouth: no lip lesion, mucus membranes moist Cardiovascular: S1S2 reg, no murmur, positive posterior tibial pulse bilateral, Lungs: Decreased bs bilateral, no rhonchi, no rales , no accessory muscle use, chest tube in place with blood tinged fluid 125 L out in 24 hours per charting Abdominal: soft, nontender to palpation, no guarding, no appreciable organomegaly Ext: no gross muscle atrophy, no edema, no contractures Neuro: CN II-XI grossly intact, no focal neuro deficits Psych: Alert, oriented, appears scared Assessment/plan: Complicated pneumonia with empyema and sepsis, possible gram-negative - Rocephin D # 6, has completed Zithromax 2 days, unlikely to be atypical pneumonia. -Await pleural fluid cultures -Exudative effusion via light's criteria -Pain control - CT surgery recs,Lysis treatment again today for 3rd dose: CT mgt per CT surgery Transaminitis - Await liver US, to ensure no abscess formation - follow LFTs - Suspect due to illness, but patient is on zyprexa and multiple other medications that can lead to transamintiis. HTN - atenolol - folow BP DM 2 - hold metoformin - SSI - follow BS, Highest blood sugar is 143 in 24 horus. Hypothyroidism -synthroid Pulm HTN RLS Bipolar disorder - case discussed with [place] provider Dr. Almonte today- wound consider [facility] bed if still needs pig tail cath on discharge if not she could go to [facility] on discharge. DVT: heparin Active Medications Generic Name Dose Route Start Last Admin Trade Name Freq PRN Reason Stop Dose Admin Acetaminophen 650 mg 11/21/22 13:15 11/25/22 11:47 Acetaminophen Tab 325 Mg Tab PO 650 mg Q4HR PRN Administration Fever and/ or Mild Pain Hydrocodone Bitart/Acetaminophen 1 each 11/26/22 08:02 11/26/22 08:58 Hydrocodone/Apap 5-325mg 1 Each Tab PO 1 each Q6HR PRN Administration Pain Albuterol Sulfate 2.5 mg 11/20/22 13:14 Albuterol Nebulized 2.5 Mg/3 Ml INHALATION RT-QID PRN Shortness Of Breath Ascorbic Acid 500 mg 11/21/22 09:00 11/26/22 08:58 Ascorbic Acid 500 Mg Tab PO 500 mg DAILY JUANITO Administration Aspirin 81 mg 11/21/22 09:00 11/26/22 09:03 Aspirin 81 Mg PO 81 mg DAILY JUANITO Administration Atenolol 12.5 mg 11/21/22 09:00 11/26/22 08:57 Atenolol 25 Mg Tab PO 12.5 mg DAILY JUANITO Administration Atorvastatin Calcium 20 mg 11/20/22 21:00 11/25/22 21:16 Atorvastatin 20 Mg Tab PO 20 mg HS JUANITO Administration Cholecalciferol 50 mcg 11/21/22 09:00 11/26/22 08:57 Cholecalciferol 25 Mcg (1000 Iu) Tablet PO 50 mcg DAILY JUANITO Administration Heparin Sodium (Porcine) 5,000 unit 11/21/22 16:00 11/26/22 09:03 Heparin Sodium,Porcine/Pf 5,000 Unit/0.5 Ml Syringe SQ 5,000 unit Q8HR JUANITO Administration Ceftriaxone Sodium 2 gm/ 50 mls @ 100 mls/hr 11/25/22 12:00 11/26/22 09:13 Sodium Chloride IVPB 100 mls/hr Q24HR JUANITO Administration Protocol Ibuprofen 400 mg 11/20/22 11:24 Ibuprofen 400 Mg Tab PO Q6HR PRN Mild Pain or Fever > 100.5 Insulin Aspart 0 unit 11/20/22 17:30 11/26/22 08:57 Insulin Aspart (Novolog) 100 Unit/Ml Vial SQ 2 unit AC-TID JUANITO Administration Protocol Lamotrigine 200 mg 11/21/22 09:00 11/26/22 08:57 Lamotrigine 100 Mg Tab PO 200 mg DAILY JUANITO Administration Levothyroxine Sodium 50 mcg 11/21/22 06:30 11/26/22 06:07 Levothyroxine 50 Mcg Tab PO 50 mcg DAILY@0630 JUANITO Administration [place] Carbonate 600 mg 11/21/22 09:00 11/26/22 08:59 [place] Carbonate 300 Mg Cap PO 600 mg DAILY JUANITO Administration Loratadine 10 mg 11/21/22 09:00 11/26/22 08:58 Loratadine 10 Mg Tab PO 10 mg DAILY JUANITO Administration Meloxicam 15 mg 11/21/22 09:00 11/26/22 08:56 Meloxicam 7.5 Mg Tab PO 15 mg DAILY JUANITO Administration Miscellaneous Information 1 each 11/20/22 09:49 Pneumonia Protocol Utilized 1 Each Misc PO ONCE PRN Per Protocol Morphine Sulfate 2 mg 11/20/22 11:26 11/25/22 21:17 Morphine Sulfate 2 Mg/Ml Syringe IVP 2 mg Q4HR PRN Administration Severe Pain (Scale 7 to 10) Naloxone HCl 0.2 mg 11/20/22 11:24 Naloxone 0.4 Mg/Ml 1 Ml Vial IV Q2M PRN Opioid Reversal Olanzapine 5 mg 11/20/22 21:00 11/25/22 21:16 Olanzapine 5 Mg Tab PO 5 mg HS JUANITO Administration Ondansetron HCl 4 mg 11/20/22 11:24 Ondansetron 4 Mg/2 Ml Vial IVP Q8HR PRN Nausea And Vomiting Oxybutynin Chloride 5 mg 11/20/22 21:00 11/26/22 09:00 Oxybutynin Chloride 5 Mg Tab PO 5 mg BID JUANITO Administration Pantoprazole Sodium 40 mg 11/21/22 09:00 11/26/22 08:58 Pantoprazole 40 Mg/10 Ml Vial IV 40 mg DAILY JUANITO Administration Paroxetine HCl 10 mg 11/20/22 16:00 11/26/22 08:59 Paroxetine 10 Mg Tab PO 10 mg TID JUANITO Administration Ropinirole HCl 0.5 mg 11/20/22 21:00 11/25/22 21:16 Ropinirole Hcl 0.25 Mg Tab PO 0.5 mg HS JUANITO Administration Trihexyphenidyl HCl 2 mg 11/20/22 18:00 11/26/22 08:59 Trihexyphenidyl 2 Mg Tab PO 2 mg QID JUANITO Administration Objective - Vital Signs Vital signs: Vital Signs Temp 98.5 F 11/26/22 07:20 Pulse 83 11/26/22 07:20 Resp 16 11/26/22 07:20 BP 116/94 11/26/22 07:20 Pulse Ox 92 L 11/26/22 07:20 FiO2 Intake & Output 11/25/22 11/26/22 11/26/22 18:59 06:59 18:59 Intake Total 50 Output Total 125 Balance -75 Weight 97.522 kg Intake: Intake, IV Titration 50 Amount cefTRIAXone 2 gm In 50 Sodium Chloride 0.9% 50 ml @ 100 mls/hr IVPB Q24HR [facility] Rx#:[id number] Output: Chest Tube Drainage 125 Chest Tube Left Posterior 125 Chest Other: Voiding Method Toilet Toilet # Voids 1 2 - Labs CBC & Chem 7: 11/26/22 05:46 11/26/22 05:46 Labs: Abnormal Lab Results - Last 24 Hours (Table) 11/25/22 11/25/22 11/25/22 Range/Units 11:09 11:10 11:10 WBC 19.2 H (3.8-10.6) k/uL Hgb 10.8 L (11.4-16.0) gm/dL Hct 33.9 L (34.0-46.0) % Plt Count 452 H (150-450) k/uL Glucose 162 H (74-99) mg/dL POC Glucose (mg/dL) 176 H (70-110) mg/dL Calcium (8.4-10.2) mg/dL Magnesium (1.6-2.3) mg/dL AST 420 H (14-36) U/L ALT 437 H (4-34) U/L Alkaline Phosphatase 302 H (38-126) U/L Total Protein 5.9 L (6.3-8.2) g/dL Albumin 3.0 L (3.5-5.0) g/dL 11/25/22 11/25/22 11/26/22 Range/Units 17:08 20:23 05:46 WBC 16.7 H (3.8-10.6) k/uL Hgb 10.5 L (11.4-16.0) gm/dL Hct 32.9 L (34.0-46.0) % Plt Count (150-450) k/uL Glucose (74-99) mg/dL POC Glucose (mg/dL) 127 H 143 H (70-110) mg/dL Calcium (8.4-10.2) mg/dL Magnesium (1.6-2.3) mg/dL AST (14-36) U/L ALT (4-34) U/L Alkaline Phosphatase (38-126) U/L Total Protein (6.3-8.2) g/dL Albumin (3.5-5.0) g/dL 11/26/22 11/26/22 Range/Units 05:46 07:23 WBC (3.8-10.6) k/uL Hgb (11.4-16.0) gm/dL Hct (34.0-46.0) % Plt Count (150-450) k/uL Glucose 126 H (74-99) mg/dL POC Glucose (mg/dL) 146 H (70-110) mg/dL Calcium 8.2 L (8.4-10.2) mg/dL Magnesium 2.4 H (1.6-2.3) mg/dL AST 169 H (14-36) U/L ALT 314 H (4-34) U/L Alkaline Phosphatase 261 H (38-126) U/L Total Protein 5.5 L (6.3-8.2) g/dL Albumin 2.8 L (3.5-5.0) g/dL Microbiology - Last 24 Hours (Table) 11/23/22 12:05 Anaerobic Culture - Preliminary Pleural Fluid 11/20/22 10:00 Blood Culture - Preliminary Blood No Growth after 120 hours 11/20/22 10:15 Blood Culture - Preliminary Blood No Growth after 120 hours 11/23/22 11:40 Gram Stain - Preliminary Pleural Fluid Body Fluid Culture - Preliminary
--- NOTE | 2022-11-26 10:49 | P.PN ---
Subjective Progress Note Date: 11/26/22 Principal diagnosis: Left lower lobe pneumonia and complicated loculated pleural effusion I'm seeing this patient today 11/20/2022 in consultation for a left lower lobe pneumonia. This 67-year-old female with a pertinent medical history of diabetes mellitus, hypertension, hyperlipidemia, hypothyroidism, obstructive sleep apnea with CPAP, never smoker, macular degeneration, anxiety, bipolar, schizoaffective disorder. Patient presented to the emergency department on November 20 for the chief complaint of abdominal pain over the last 3 days that radiated to the ipsilateral shoulder and troubles walking. Patient also had some associated nausea and vomiting. patient denies change in bowel habits, blood in stool, hematemesis, fever, cough, hemoptysis. These findings prompted a workup with an abdominal ultrasound which revealed hepatomegaly with hepatic steatosis. enhanced CT of abdomen and pelvis which showed small to moderate left pleural effusion with scalped margins suggesting areas of loculation, extensive consolidation of the left base, tree-in-bud nodularity at the right base which could reflect aspiration or bronchiolitis, a large hiatal hernia, and umbilical hernia measuring 5 cm, left-sided colonic diverticulosis without diverticulitis, and a moderate stool burden. a chest CTnonenhanced showed COPD changes with mild emphysema and pulmonary arterial hypertension, small to moderate left pleural effusion with loculation redemonstrated, extensive left basilar and left infrahilar airspace diseasethat could correlate with a peripneumonic Effusion or early empyema, additional nodularity entry and bilateral obesity throughout the right lung, and a moderate to large hiatal hernia. patient's CBC showed some leukocytosis with a WBC count of 17.8, hemoglobin 10.7, hematocrit 33, platelets 398,000. Patient's BMP shows a sodium of 134, potassium 4.8, chloride 101, serum CO2 26, BUN 15, creatinine 0.74, glucose 173. There is some mild bleeding elevated LFTs. Procalcitonin was moderately high 0.18. Patient was negative for influenza, RSV, coronavirus. patient is currently sitting up in bed, on room air, and no acute distress. she is maintained on Ventolin nebulizations, empiric azithromycin and ceftriaxone. The patient does have some tardive dyskinesia and lip smacking on examination and she is on multiple different antipsychotic medi cations. Patient is afebrile. Vital signs are stable. The patient is seen today 11/21/2022 in follow-up on the regular medical floor. She is currently resting comfortably in bed. Awake and alert in no acute distress. She is maintaining O2 saturations in the 90s on room air. We had recommended a pigtail catheter insertion for her loculated pleural effusion on the left chest however when she got down to the Department she declined to have a catheter placed. Her daughter is aware. She may reconsider and maybe interventional radiology to place a catheter on Wednesday11/23/2022. Today's chest x-ray reveals generalized haziness to the left mid and lower lung consistent with loculated pleural effusion and airspace disease. White count 27.3. Hemoglobin 10.7. Sodium 135. Potassium 4.3. BUN 9. Creatinine 0.8. Glucose 200. C-reactive protein 34.9. She remains on ceftriaxone and azithromycin. Patient was reevaluated today on 11/22/2022, surprisingly she is doing better than expected considering his pneumonia and left loculated pleural effusion. Patient is still undecided about the pigtail catheter placement, in the meantime she is receiving antibiotics no cough no wheezing no shortness of breath no chest pain, patient is on room air. She does have leukocytosis with WBC count of 25.9 hemoglobin is 10.3, electrolytes are normal I'm reevaluating this patient today on 11/23/2022 in follow-up on a general medical floor. She is lying in bed, on room air, in no acute distress. She is agreeable to the pigtail catheter insertion today. most recent chest x-ray from 11/22/2022 shows some unchanged left mid to lower lung haziness that is consistent with the known loculated pleural effusion. patient is currently afebrile. patient's CBC from today shows some leukocytosis with WBC count of 23.6, hemoglobin 10.4, hematocrit 33.9, platelets 392,000. BMP from today shows a sodium 136, potassium 4.2, chloride 102, serum CO2 24.5, BUN 6.9, creatinine 0.8, glucose 164. coagulation profile is within defined limits. she continues to receive Rocephin and. DuoNeb treatments. vital signs remain stable. I'm reevaluating this patient today on 11/24/2022 [facility] She is currently sitting up in bed, on room air, in no acute distress. Patient has a pigtail catheter in place draining, a serous colored fluid, with a total of 270 mL of output since insertion by Dr. Perez on 11/23/2022. The pigtail is attached to suction at -20 Cm of Water. Patient's repeat chest x-ray from today shows interval placement of the left pleural pigtail catheter with decreased size of the moderate left pleural effusion, no pneumothorax, mild pulmonary vascular congestion with patchy left mid and lower lung consolidation. Pleural fluid cultures are pending. No new labs to review today. Patient finished course of Rocephin. Patient has remained afebrile. Brandon randle is receiving Ventolin nebulizations as needed. Vital signs remain stable. I'm reevaluating this patient today 11/26/2022 in follow-up on a general medical floor. Patient is currently sitting up in bed, on room air, and in no acute distress. Patient's left pigtail catheter remains in place, draining a serous colored fluid, with a total output of 490 mls over the last 24 hours. The catheter remains to suction at -20 cm water. Chest x-ray from today shows an improved left pleural effusion with pigtail catheter in place. Cardiothoracic did instill the catheter with alteplase yesterday, and plans to instill another dose of fibrinolytic therapy today. Pleural fluid cultures show no growth at this time. Blood cultures remain negative at 96 hours. No new CBC or BMP to review today. Patient's procalcitonin level 0.18 arrival, and this is being repeated. Patient remains afebrile, and her vital signs remain stable. I'm reevaluating this patient 2022 in follow-up on a general medical floor. Patient is currently sitting up in bed, on room air, in no acute distress. Patient's left pigtail catheter remains in place, and continues to drain serous colored fluid. Patient has had a total of 320 mL output over 24 hours. Pigtail catheter remains to suction at -20 cm of water. Chest x-ray from today continues to show a left pleural effusion and some pulmonary vascular congestion. She did receive another dose of alteplase by cardiothoracic surgery yesterday. Pleural fluid shows no growth at this point, however, the pleural fluid was exudative with a low glucose. Patient was continued on Rocephin for antibiotic coverage. Patient has remained afebrile. CBC from today shows a WBC count of 16.7, hemoglobin 10.5, hematocrit 32.9, crit platelets 420,000. BMP from today was stable with a sodium of 137, potassium 4.5, chloride 104, serum CO2 27, BUN 11, creatinine 0.8, glucose 126. Patient's LFTs are improving and are down to an AST of 169, ALT of 314, ALP of 161. Patient's liver ultrasound showed some hepatomegaly with borderline gallbladder wall thickening that could correlate for cholecystitis. Vital signs remain stable. Objective - Vital Signs Vital signs: Vital Signs Temp 98.5 F 11/26/22 07:20 Pulse 83 11/26/22 07:20 Resp 16 11/26/22 07:20 BP 116/94 11/26/22 07:20 Pulse Ox 92 L 11/26/22 07:20 FiO2 Intake & Output 11/25/22 11/26/22 11/26/22 18:59 06:59 18:59 Intake Total 50 Output Total 125 Balance -75 Weight 97.522 kg Intake: Intake, IV Titration 50 Amount cefTRIAXone 2 gm In 50 Sodium Chloride 0.9% 50 ml @ 100 mls/hr IVPB Q24HR [facility] Rx#:[id number] Output: Chest Tube Drainage 125 Chest Tube Left Posterior 125 Chest Other: Voiding Method Toilet Toilet # Voids 1 2 - Exam Physical Exam: a 67-year-old white female, in no acute distress. Head: Atraumatic normocephalic. HEENT:[Neck is supple.] [No neck masses.] [No thyromegaly.] [No JVD.] Chest: [Diminished breath sounds and crackles at the left base, right side is clear. on room air. Left sided pigtail in place, and to Pleur-evac -20 cm water Cardiac Exam: [Normal S1 and S2, no S3 gallop, no murmur.] Abdomen: [Soft, nontender, no megaly, no rebound, no guarding, normal bowel sounds.] Extremities: [No clubbing, no edema, no cyanosis.] Neurological Exam: [No focal neurologic deficit.] Alert and oriented 3. no obvious dyskinesia movements on today's examination. Psychiatric: Normal mood affect Skin: No rashes. - Labs CBC & Chem 7: 01/19/23 05:46 11/26/22 05:46 Labs: Abnormal Lab Results - Last 24 Hours (Table) 11/25/22 11/25/22 11/25/22 Range/Units 11:09 11:10 11:10 WBC 19.2 H (3.8-10.6) k/uL Hgb 10.8 L (11.4-16.0) gm/dL Hct 33.9 L (34.0-46.0) % Plt Count 452 H (150-450) k/uL Glucose 162 H (74-99) mg/dL POC Glucose (mg/dL) 176 H (70-110) mg/dL Calcium (8.4-10.2) mg/dL Magnesium (1.6-2.3) mg/dL AST 420 H (14-36) U/L ALT 437 H (4-34) U/L Alkaline Phosphatase 302 H (38-126) U/L Total Protein 5.9 L (6.3-8.2) g/dL Albumin 3.0 L (3.5-5.0) g/dL 11/25/22 11/25/22 11/26/22 Range/Units 17:08 20:23 05:46 WBC 16.7 H (3.8-10.6) k/uL Hgb 10.5 L (11.4-16.0) gm/dL Hct 32.9 L (34.0-46.0) % Plt Count (150-450) k/uL Glucose (74-99) mg/dL POC Glucose (mg/dL) 127 H 143 H (70-110) mg/dL Calcium (8.4-10.2) mg/dL Magnesium (1.6-2.3) mg/dL AST (14-36) U/L ALT (4-34) U/L Alkaline Phosphatase (38-126) U/L Total Protein (6.3-8.2) g/dL Albumin (3.5-5.0) g/dL 11/26/22 11/26/22 Range/Units 05:46 07:23 WBC (3.8-10.6) k/uL Hgb (11.4-16.0) gm/dL Hct (34.0-46.0) % Plt Count (150-450) k/uL Glucose 126 H (74-99) mg/dL POC Glucose (mg/dL) 146 H (70-110) mg/dL Calcium 8.2 L (8.4-10.2) mg/dL Magnesium 2.4 H (1.6-2.3) mg/dL AST 169 H (14-36) U/L ALT 314 H (4-34) U/L Alkaline Phosphatase 261 H (38-126) U/L Total Protein 5.5 L (6.3-8.2) g/dL Albumin 2.8 L (3.5-5.0) g/dL Microbiology - Last 24 Hours (Table) 11/23/22 12:05 Anaerobic Culture - Preliminary Pleural Fluid 11/20/22 10:00 Blood Culture - Preliminary Blood No Growth after 120 hours 11/20/22 10:15 Blood Culture - Preliminary Blood No Growth after 120 hours 11/23/22 11:40 Gram Stain - Preliminary Pleural Fluid Body Fluid Culture - Preliminary Assessment and Plan Assessment: community-acquired pneumonia. Procalcitonin level is pending. We'll continue Rocephin for antibiotic coverage. Loculated left pleural effusion. Patient has a left pigtail catheter in place draining a serous fluid. Total of 270 mL of output and since insertion yesterday pigtail catheter is currently to suction to water. Repeat chest x-ray today shows a decrease in the moderate left pleural effusion and no pneumothorax. Cardiothoracic surgery consult to instill alteplase. Patient received 1 dose of alteplase yesterday. Patient had an additional 490 mL of serous output over the last 24 hours. Patient had an additional dose of alteplase yesterday, and has had 320 ML's of serous output 24 hours. Leukocytosis secondary to above Acute transaminitis. Improving. Patient had a liver ultrasound which showed some hepatomegaly and gallbladder wall thickening that could correlate for cholecystitis. pulmonary hypertension Hypertension Hyperlipidemia Diabetes mellitus type 2 non-insulin dependent Hypothyroidism Bipolar disorder Restless leg syndrome Plan: patient's medications, labs, chest x-ray reviewed Patient has a left pigtail catheter in place Procalcitonin level pending Continue Rocephin for antibiotic coverage On room air We will continue to follow I have personally seen and examined the patient, performed the documentation and the assessment and plan as written. Number of minutes spent on the visit: 10. 5 Time with Patient: Less than 30
[2022-11-26 11:11] LABS: Glucose,Whole Blood 222 mg/dL (70-110)
[2022-11-26 17:04] LABS: Glucose,Whole Blood 89 mg/dL (70-110)
[2022-11-26 20:47] LABS: Glucose,Whole Blood 148 mg/dL (70-110)
[2022-11-26] MEDS: OLANZapine 5 MG TAB PO SCH (21:42)
[2022-11-26] MEDS: ATORVASTATIN 20 MG TAB PO SCH (21:42)
[2022-11-27] MEDS: LEVOTHYROXINE 50 MCG TAB PO SCH (05:48)
[2022-11-27 07:36] LABS: Glucose,Whole Blood 147 mg/dL (70-110)
--- NOTE | 2022-11-27 08:27 | P.PN ---
Subjective Progress Note Date: 11/27/22 Principal diagnosis: Community-acquired pneumonia, loculated left pleural effusion. Previous medical history of hypertension, hyperlipidemia, diabetes mellitus type 2, hypothyroid ism, anxiety/depression/bipolar disorder/schizoaffective disorder, GERD, hiatal hernia, lifetime nonsmoker, obstructive sleep apnea without home CPAP use, obesity, degenerative joint disease, memory impairment POD #4 placement of left-sided pigtail catheter by interventional radiology The patient was seen and examined sitting up in a recliner on the medical surgical unit in no acute distress eating breakfast. Denies pain or shortness of breath except with deep inspiration but does appear more comfortable today. Left-sided pigtail catheter present to continuous wall suction, 500 mL thin ser ous drainage with sediment/tissue present in the last 24 hours. Patient has had 3 doses of lytic therapy so far. Chest CT to be completed today Objective - Vital Signs Vital signs: Vital Signs Temp 97.9 F 11/27/22 07:21 Pulse 94 11/27/22 07:21 Resp 16 11/27/22 07:21 BP 155/87 11/27/22 07:21 Pulse Ox 95 11/27/22 07:21 FiO2 Intake & Output 11/26/22 11/27/22 11/27/22 18:59 06:59 18:59 Intake Total 590 Output Total 400 70 Balance -400 520 Intake: Oral 590 Output: Chest Tube Drainage 400 70 Chest Tube Left Posterior 400 70 Chest Other: Voiding Method Toilet Toilet # Voids 3 2 # Bowel Movements 1 - Exam CONSTITUTIONAL: Appears comfortable, cooperative, no acute distress RESPIRATORY: Lungs sounds diminished bilaterally, left greater than right. Respirations even, nonlabored. Currently on room air with oxygen saturation 95%. Able to achieve 1500 mL on incentive spirometry. Strong cough. CARDIOVASCULAR: S1, S2 present. Regular rate and rhythm. GASTROINTESTINAL: Abdomen soft, nontender, nondistended. Active bowel sounds present 4 quadrants. Tolerating diet. Positive bowel movement 11/26/22 GENITOURINARY: Continues to void INTEGUMENTARY: Skin is warm and dry NEUROLOGIC: Cranial nerves II through XII intact MUSKULOSKELETAL: Able to move all extremities, strength equal bilaterally PSYCHIATRIC: Alert and oriented to person place and time, appropriate affect, intact judgment and insight INVASIVE LINES AND TUBES: Left pigtail catheter present and connected to wall suction, no air leaks present, 70 mL serous drainage with sediment/tissue overnight, 500 mL in the last 24 hours - Allied health notes Allied health notes reviewed: nursing - Labs CBC & Chem 7: 11/26/22 05:46 11/26/22 05:46 Labs: Abnormal Lab Results - Last 24 Hours (Table) 11/25/22 11/26/22 11/26/22 Range/Units 11:10 11:07 20:46 POC Glucose (mg/dL) 222 H 148 H (70-110) mg/dL Procalcitonin 0.36 H (0.02-0.09) ng/mL 11/27/22 Range/Units 07:24 POC Glucose (mg/dL) 147 H (70-110) mg/dL Procalcitonin (0.02-0.09) ng/mL Microbiology - Last 24 Hours (Table) 11/20/22 10:00 Blood Culture - Final Blood No Growth after 144 hours 11/20/22 10:15 Blood Culture - Final Blood No Growth after 144 hours 11/23/22 11:40 Gram Stain - Preliminary Pleural Fluid Body Fluid Culture - Preliminary - Imaging and Cardiology CT scan - chest: pending Assessment and Plan Assessment: 1. Community-acquired pneumonia 2. Loculated left pleural effusion, likely secondary to above, status post left chest pigtail catheter placement by interventional radiology 3. Hypertension 4. Hyperlipidemia 5. Diabetes mellitus type 2 6. Hypothyroidism 7. Anxiety 8. History of depression 9. History of bipolar disorder 10. History of schizoaffective disorder 11. GERD 12. Hiatal hernia 13. Lifetime nonsmoker 14. Obstructive sleep apnea without home CPAP use 15. Obesity 16. Degenerative joint disease 17. Memory impairment Plan: 1. Will instill fourth dose of lytic therapy today after chest CT, monitor drainage 2. Daily chest x-rays 3. Encourage incentive spirometry use 4. Increase activity as tolerated 5. Pain control per current medication regimen 6. Medical management of other comorbidities per primary care service 7. More recommendations to follow
[2022-11-27] MEDS: HEPARIN SODIUM,PORCINE/PF 5,000 UNIT/0.5 ML SYRINGE SQ SCH ×2 (08:29→17:31)
[2022-11-27] MEDS: INSULIN ASPART (NovoLOG) 100 UNIT/ML VIAL SQ SCH ×3 (08:30→17:18)
[2022-11-27 08:49] LABS: HCT 33.4 % (37.2-46.3); HGB 10.1 g/dL (12.0-15.0); MCH 25.3 pg (27.0-32.0); MCHC 30.2 g/dL (32.0-37.0); MCV 83.7 fL (80.0-97.0); NRBC Per 100 WBC 0 /100 WBCS (0.0-0.0); Platelet Count 450 X 10*3/uL (140-440); RBC 3.99 X 10*6/uL (4.10-5.20); RDW 13.9 % (11.5-14.5); WBC 17.14 X 10*3/uL (4.50-10.00)
[2022-11-27 09:01] LABS: African American GFR (CKD) 105.4 (60.0-200.0); Anion Gap 9.7 mmol/L (10.00-18.00); BUN/Creat Ratio 14.14 Ratio (12.00-20.00); Blood Urea Nitrogen 9.9 mg/dL (9.0-27.0); Calcium 8.7 mg/dL (8.7-10.3); Carbon Dioxide 23.3 mmol/L (20.0-27.5); Magnesium 2.4 mg/dL (1.5-2.4); Non-African American GFR(CKD) 90.9 (60.0-200.0); Potassium 4.6 mmol/L (3.5-5.5)
[2022-11-27] MEDS: ASPIRIN 81 MG PO SCH (09:04)
[2022-11-27] MEDS: TRIHEXYPHENIDYL 2 MG TAB PO SCH ×4 (09:04→20:53)
[2022-11-27] MEDS: LITHIUM CARBONATE 300 MG CAP PO SCH (09:05)
[2022-11-27] MEDS: ASCORBIC ACID 500 MG TAB PO SCH (09:05)
[2022-11-27] MEDS: PARoxetine 10 MG TAB PO SCH ×3 (09:05→20:53)
[2022-11-27] MEDS: CHOLECALCIFEROL 25 MCG (1000 IU) TABLET PO SCH (09:05)
[2022-11-27] MEDS: atenoloL 25 MG TAB PO SCH (09:06)
[2022-11-27] MEDS: OXYBUTYNIN CHLORIDE 5 MG TAB PO SCH ×2 (09:06→20:52)
[2022-11-27] MEDS: lamoTRIgine 100 MG TAB PO SCH (09:07)
[2022-11-27] MEDS: MELOXICAM 7.5 MG TAB PO SCH (09:07)
[2022-11-27] MEDS: LORATADINE 10 MG TAB PO SCH (09:13)
[2022-11-27] MEDS: PANTOPRAZOLE 40 MG/10 ML VIAL IV SCH (09:15)
[2022-11-27] MEDS ORDERED: DORNASE ALFA 5 MG in SODIUM CHLORIDE 0.9% 50 ML IRRIGATION ONE (10:00)
[2022-11-27] MEDS ORDERED: ALTEPLASE 10 MG in SODIUM CHLORIDE 0.9% 50 ML IRRIGATION ONE (10:00)
[2022-11-27 11:21] LABS: Glucose,Whole Blood 151 mg/dL (70-110)
--- NOTE | 2022-11-27 12:54 | P.PN ---
Subjective Progress Note Date: 11/27/22 Hospital Course: 67 year old woman with history of COPD with pulmonary hypertension, HTN, HLD, DM, hypothyroidism, bipolar disorder, restless leg syndrome presented for evaluation of chest pain. In the emergency room, patient was afebrile, 129/86, heart rate 93, 92% on room air. CBC shows leukocytosis to 17.8, anemia down to 10.7. Laboratory analysis demonstrated a sodium of 134, AST at 65, elevated ALT at 120, elevated alkaline phosphatase 159, troponin was less than 0.012, Influenza A, B, RSV, Covid were negative, and labaratory analysis was otherwise unremarkable. VBG shows a pH of 7.35, pCO2 of 46. Gallbladder ultrasound shows hepatomegaly with hepatic steatosis. CT of the abdomen/pelvis shows small to moderate fat-containing umbilical hernia, moderate to large hiatal hernia involving two thirds of the stomach and lower chest, left-sided colonic diverticulosis with a redundant sigmoid colon. CT of the chest shows left pleural effusion with evidence of loculation, extensive left base consolidation concerning for pneumonia with parapneumonic effusion versus empyema, tree and bud nodularity at the right base. EKG shows sinus rhythm with a normal axis, no evidence of ischemia. Patient was admitted for sepsis due to pneumonia. She was started on ceftriaxone/azithromycin, and received 1 dose of metronidazole in the emergency room. He was continued on IV fluids. Pulmonary and CT surgery were consulted. She ultimately had pig tail catheter placed on 11/23/22 and required Lysis instillation from cardiothoracic surgery. Subjective: Patient seen and examined at bedside. She is adamant about getting out of the hospital as soon as possible. She denies any current chest pain, shortness of breath, nausea, vomiting, diarrhea, constipation, or urinary complaints. She has occasional right upper quadrant abdominal pain. Pertinent positives and negatives as discussed above, a complete review of systems was performed and all other systems are negative. Vitals Signs Reviewed. General: nontoxic, no distress, appears at stated age Derm: warm, dry Head: atraumatic, normocephalic, symmetric Eyes: EOMI, no lid lag, anicteric sclera Mouth: no lip lesion, mucus membranes moist Cardiovascular: S1S2 reg, no murmur, positive posterior tibial pulse bilateral, Lungs: Decreased bs bilateral, no rhonchi, no rales , no accessory muscle use, chest tube in place with blood tinged fluid Abdominal: soft, tender to palpation in right upper quadrant, no guarding, no appreciable organomegaly Ext: no gross muscle atrophy, no edema, no contractures Neuro: CN II-XI grossly intact, no focal neuro deficits Psych: Alert, oriented, appears scared Assessment and Plan: Complicated pneumonia with empyema and sepsis, possible gram-negative Persistent leukocytosis - Rocephin D # 7, has completed Zithromax 2 days, unlikely to be atypical pneumonia. -Await pleural fluid cultures -Exudative effusion via light's criteria -Pain control - CT surgery recs,Lysis treatment again today for 4th dose: CT mgt per CT surgery -Repeat chest CT today Transaminitis Possible cholecystitis -Abdominal ultrasound showed borderline gallbladder wall thickening, could: Ch olecystitis -HIDA scan -Added Flagyl HTN - atenolol - folow BP DM 2 - hold metoformin - SSI - follow BS, Highest blood sugar is 222 in 24 horus. Hypothyroidism -synthroid Normocytic anemia -Iron panel pending Pulm HTN RLS Bipolar disorder DVT ppx: Subcu heparin Code status: Full Code Anticipated discharge place: [facility] versus subacute rehab, patient will not be able to go any facility with the chest tube Anticipated discharge time: Pending clinical course Objective - Vital Signs Vital signs: Vital Signs Temp 98.5 F 11/27/22 12:21 Pulse 80 11/27/22 12:21 Resp 16 11/27/22 12:21 BP 131/87 11/27/22 12:21 Pulse Ox 96 11/27/22 12:21 FiO2 Intake & Output 11/26/22 11/27/22 11/27/22 18:59 06:59 18:59 Intake Total 590 Output Total 400 70 Balance -400 520 Weight 97.522 kg Intake: Oral 590 Output: Chest Tube Drainage 400 70 Chest Tube Left Posterior 400 70 Chest Other: Voiding Method Toilet Toilet Toilet Bedside Commode # Voids 3 2 # Bowel Movements 1 - Labs CBC & Chem 7: 11/27/22 04:28 11/27/22 04:28 Labs: Abnormal Lab Results - Last 24 Hours (Table) 11/26/22 11/27/22 11/27/22 Range/Units 20:46 04:28 04:28 WBC 17.14 H (4.50-10.00) X 10*3/uL RBC 3.99 L (4.10-5.20) X 10*6/uL Hgb 10.1 L (12.0-15.0) g/dL Hct 33.4 L (37.2-46.3) % MCH 25.3 L (27.0-32.0) pg MCHC 30.2 L (32.0-37.0) g/dL Plt Count 450 H (140-440) X 10*3/uL MPV 9.0 L (9.5-12.2) fL Anion Gap 9.70 L (10.00-18.00) mmol/L Glucose 124 H (70-110) mg/dL POC Glucose (mg/dL) 148 H (70-110) mg/dL 11/27/22 11/27/22 Range/Units 07:24 11:19 WBC (4.50-10.00) X 10*3/uL RBC (4.10-5.20) X 10*6/uL Hgb (12.0-15.0) g/dL Hct (37.2-46.3) % MCH (27.0-32.0) pg MCHC (32.0-37.0) g/dL Plt Count (140-440) X 10*3/uL MPV (9.5-12.2) fL Anion Gap (10.00-18.00) mmol/L Glucose (70-110) mg/dL POC Glucose (mg/dL) 147 H 151 H (70-110) mg/dL Microbiology - Last 24 Hours (Table) 11/20/22 10:00 Blood Culture - Final Blood No Growth after 144 hours 11/20/22 10:15 Blood Culture - Final Blood No Growth after 144 hours 11/23/22 11:40 Gram Stain - Preliminary Pleural Fluid Body Fluid Culture - Preliminary
--- NOTE | 2022-11-27 13:04 | P.PN ---
Subjective Progress Note Date: 11/27/22 Principal diagnosis: Left lower lobe pneumonia and complicated loculated pleural effusion I'm seeing this patient today 11/20/2022 in consultation for a left lower lobe pneumonia. This 67-year-old female with a pertinent medical history of diabetes mellitus, hypertension, hyperlipidemia, hypothyroidism, obstructive sleep apnea with CPAP, never smoker, macular degeneration, anxiety, bipolar, schizoaffective disorder. Patient presented to the emergency department on November 20 for the chief complaint of abdominal pain over the last 3 days that radiated to the ipsilateral shoulder and troubles walking. Patient also had some associated nausea and vomiting. patient denies change in bowel habits, blood in stool, hematemesis, fever, cough, hemoptysis. These findings prompted a workup with an abdominal ultrasound which revealed hepatomegaly with hepatic steatosis. enhanced CT of abdomen and pelvis which showed small to moderate left pleural effusion with scalped margins suggesting areas of loculation, extensive consolidation of the left base, tree-in-bud nodularity at the right base which could reflect aspiration or bronchiolitis, a large hiatal hernia, and umbilical hernia measuring 5 cm, left-sided colonic diverticulosis without diverticulitis, and a moderate stool burden. a chest CTnonenhanced showed COPD changes with mild emphysema and pulmonary arterial hypertension, small to moderate left pleural effusion with loculation redemonstrated, extensive left basilar and left infrahilar airspace diseasethat could correlate with a peripneumonic Effusion or early empyema, additional nodularity entry and bilateral obesity throughout the right lung, and a moderate to large hiatal hernia. patient's CBC showed some leukocytosis with a WBC count of 17.8, hemoglobin 10.7, hematocrit 33, platelets 398,000. Patient's BMP shows a sodium of 134, potassium 4.8, chloride 101, serum CO2 26, BUN 15, creatinine 0.74, glucose 173. There is some mild bleeding elevated LFTs. Procalcitonin was moderately high 0.18. Patient was negative for influenza, RSV, coronavirus. patient is currently sitting up in bed, on room air, and no acute distress. she is maintained on Ventolin nebulizations, empiric azithromycin and ceftriaxone. The patient does have some tardive dyskinesia and lip smacking on examination and she is on multiple different antipsychotic medi cations. Patient is afebrile. Vital signs are stable. The patient is seen today 11/21/2022 in follow-up on the regular medical floor. She is currently resting comfortably in bed. Awake and alert in no acute distress. She is maintaining O2 saturations in the 90s on room air. We had recommended a pigtail catheter insertion for her loculated pleural effusion on the left chest however when she got down to the Department she declined to have a catheter placed. Her daughter is aware. She may reconsider and maybe interventional radiology to place a catheter on Wednesday11/23/2022. Today's chest x-ray reveals generalized haziness to the left mid and lower lung consistent with loculated pleural effusion and airspace disease. White count 27.3. Hemoglobin 10.7. Sodium 135. Potassium 4.3. BUN 9. Creatinine 0.8. Glucose 200. C-reactive protein 34.9. She remains on ceftriaxone and azithromycin. Patient was reevaluated today on 11/22/2022, surprisingly she is doing better than expected considering his pneumonia and left loculated pleural effusion. Patient is still undecided about the pigtail catheter placement, in the meantime she is receiving antibiotics no cough no wheezing no shortness of breath no chest pain, patient is on room air. She does have leukocytosis with WBC count of 25.9 hemoglobin is 10.3, electrolytes are normal I'm reevaluating this patient today on 11/23/2022 in follow-up on a general medical floor. She is lying in bed, on room air, in no acute distress. She is agreeable to the pigtail catheter insertion today. most recent chest x-ray from 11/22/2022 shows some unchanged left mid to lower lung haziness that is consistent with the known loculated pleural effusion. patient is currently afebrile. patient's CBC from today shows some leukocytosis with WBC count of 23.6, hemoglobin 10.4, hematocrit 33.9, platelets 392,000. BMP from today shows a sodium 136, potassium 4.2, chloride 102, serum CO2 24.5, BUN 6.9, creatinine 0.8, glucose 164. coagulation profile is within defined limits. she continues to receive Rocephin and. DuoNeb treatments. vital signs remain stable. I'm reevaluating this patient today on 11/24/2022 in follow-up on a general [facility] floor. She is currently sitting up in bed, on room air, in no acute distress. Patient has a pigtail catheter in place draining, a serous colored fluid, with a total of 270 mL of output since insertion by Dr. Perez on 11/23/2022. The pigtail is attached to suction at -20 Cm of Water. Patient's repeat chest x-ray from today shows interval placement of the left pleural pigtail catheter with decreased size of the moderate left pleural effusion, no pneumothorax, mild pulmonary vascular congestion with patchy left mid and lower lung consolidation. Pleural fluid cultures are pending. No new labs to review today. Patient finished course of Rocephin. Patient has remained afebrile. Brandon randle is receiving Ventolin nebulizations as needed. Vital signs remain stable. I'm reevaluating this patient today 11/25/2022 in follow-up on a general medical floor. Patient is currently sitting up in bed, on room air, and in no acute distress. Patient's left pigtail catheter remains in place, draining a serous colored fluid, with a total output of 490 mls over the last 24 hours. The catheter remains to suction at -20 cm water. Chest x-ray from today shows an improved left pleural effusion with pigtail catheter in place. Cardiothoracic did instill the catheter with alteplase yesterday, and plans to instill another dose of fibrinolytic therapy today. Pleural fluid cultures show no growth at this time. Blood cultures remain negative at 96 hours. No new CBC or BMP to review today. Patient's procalcitonin level 0.18 arrival, and this is being repeated. Patient remains afebrile, and her vital signs remain stable. I'm reevaluating this patient 11/26/2022 in follow-up on a general medical floor. Patient is currently sitting up in bed, on room air, in no acute distress. Patient's left pigtail catheter remains in place, and continues to drain serous colored fluid. Patient has had a total of 320 mL output over 24 hours. Pigtail catheter remains to suction at -20 cm of water. Chest x-ray from today continues to show a left pleural effusion and some pulmonary vascular homar estion. She did receive another dose of alteplase by cardiothoracic surgery yesterday. Pleural fluid shows no growth at this point, however, the pleural fluid was exudative with a low glucose. Patient was continued on Rocephin for antibiotic coverage. Patient has remained afebrile. CBC from today shows a WBC count of 16.7, hemoglobin 10.5, hematocrit 32.9, crit platelets 420,000. BMP from today was stable with a sodium of 137, potassium 4.5, chloride 104, serum CO2 27, BUN 11, creatinine 0.8, glucose 126. Patient's LFTs are improving and are down to an AST of 169, ALT of 314, ALP of 161. Patient's liver ultrasound showed some hepatomegaly with borderline gallbladder wall thickening that could correlate for cholecystitis. Vital signs remain stable. I'm reevaluating this patient today 11/27/2022 in follow-up on a general medical floor. Patient is currently sitting in the chair, on room air, in no acute distress. Patient's left pigtail catheter remains in place and continues to drain a serous colored fluid. Patient has had a total of 460 mL of output in the last 24 hours. Catheter remains to suction at -20 cm of water. No new chest x-ray to review today. Was procalcitonin level was moderately high at 0.36. Patient continues to remain on empiric antibiotic coverage in the form of Rocephin. Falgyl was started today. She remains afebrile. Pleural fluid cultures show no growth so far. CBC from today shows some leukocytosis with a WBC count of 17.1, hemoglobin 10.1, hematocrit 33.4, and platelets 450,000. Patient's BMP from today shows sodium 138, potassium 4.6, chloride 105, serum CO2 23.3, BUN 9.9, creatinine 0.7, glucose 124.. Vital signs remain stable. . No Objective - Vital Signs Vital signs: Vital Signs Temp 98.5 F 11/27/22 12:21 Pulse 80 11/27/22 12:21 Resp 16 11/27/22 12:21 BP 131/87 11/27/22 12:21 Pulse Ox 96 11/27/22 12:21 FiO2 Intake & Output 11/26/22 11/27/22 11/27/22 18:59 06:59 18:59 Intake Total 590 Output Total 400 70 Balance -400 520 Weight 97.522 kg Intake: Oral 590 Output: Chest Tube Drainage 400 70 Chest Tube Left Posterior 400 70 Chest Other: Voiding Method Toilet Toilet Toilet Bedside Commode # Voids 3 2 # Bowel Movements 1 - Exam Physical Exam: a 67-year-old white female, in no acute distress. Head: Atraumatic normocephalic. HEENT:[Neck is supple.] [No neck masses.] [No thyromegaly.] [No JVD.] Chest: [Diminished breath sounds and crackles at the left base, right side is clear. on room air. Left sided pigtail in place, and to Pleur-evac -20 cm water Cardiac Exam: [Normal S1 and S2, no S3 gallop, no murmur.] Abdomen: [Soft, nontender, no megaly, no rebound, no guarding, normal bowel sounds.] Extremities: [No clubbing, no edema, no cyanosis.] Neurological Exam: [No focal neurologic deficit.] Alert and oriented 3. no obvious dyskinesia movements on today's examination. Psychiatric: Normal mood affect Skin: No rashes. - Labs CBC & Chem 7: 11/27/22 04:28 11/27/22 04:28 Labs: Abnormal Lab Results - Last 24 Hours (Table) 11/26/22 11/27/22 11/27/22 Range/Units 20:46 04:28 04:28 WBC 17.14 H (4.50-10.00) X 10*3/uL RBC 3.99 L (4.10-5.20) X 10*6/uL Hgb 10.1 L (12.0-15.0) g/dL Hct 33.4 L (37.2-46.3) % MCH 25.3 L (27.0-32.0) pg MCHC 30.2 L (32.0-37.0) g/dL Plt Count 450 H (140-440) X 10*3/uL MPV 9.0 L (9.5-12.2) fL Anion Gap 9.70 L (10.00-18.00) mmol/L Glucose 124 H (70-110) mg/dL POC Glucose (mg/dL) 148 H (70-110) mg/dL 11/27/22 11/27/22 Range/Units 07:24 11:19 WBC (4.50-10.00) X 10*3/uL RBC (4.10-5.20) X 10*6/uL Hgb (12.0-15.0) g/dL Hct (37.2-46.3) % MCH (27.0-32.0) pg MCHC (32.0-37.0) g/dL Plt Count (140-440) X 10*3/uL MPV (9.5-12.2) fL Anion Gap (10.00-18.00) mmol/L Glucose (70-110) mg/dL POC Glucose (mg/dL) 147 H 151 H (70-110) mg/dL Microbiology - Last 24 Hours (Table) 11/20/22 10:00 Blood Culture - Final Blood No Growth after 144 hours 11/20/22 10:15 Blood Culture - Final Blood No Growth after 144 hours 11/23/22 11:40 Gram Stain - Preliminary Pleural Fluid Body Fluid Culture - Preliminary Assessment and Plan Assessment: community-acquired pneumonia. Procalcitonin level is pending. We'll continue Rocephin for antibiotic coverage. Loculated left pleural effusion. Patient has a left pigtail catheter in place draining a serous fluid. Total of 270 mL of output and since insertion yesterday pigtail catheter is currently to suction to water. Repeat chest x-ray today shows a decrease in the moderate left pleural effusion and no pneumothorax. Cardiothoracic surgery consult to instill alteplase. Patient received 1 dose of alteplase yesterday. Patient had an additional 490 mL of serous output over the last 24 hours. Patient had an additional dose of alteplase yesterday. Continues to have output. Leukocytosis secondary to above Acute transaminitis. Improving. Patient had a liver ultrasound which showed some hepatomegaly and gallbladder wall thickening that could correlate for cholecystitis. Patient was started on Flagyl pulmonary hypertension Hypertension Hyperlipidemia Diabetes mellitus type 2 non-insulin dependent Hypothyroidism Bipolar disorder Restless leg syndrome Plan: patient's medications, labs, chest x-ray reviewed Patient has a left pigtail catheter in place Was procalcitonin level was moderately high at 0.36 Continue Rocephin for antibiotic coverage On room air We will continue to follow I have personally seen and examined the patient, performed the documentation and the assessment and plan as written. Number of minutes spent on the visit: 10. Time with Patient: Less than 30
--- NOTE | 2022-11-27 14:30 | CT ---
Exam: CT Chest without contrast. Date: 11/27/2022. Comparison: 11/20/2022. History: Follow-up after chest tube insertion. Technique: CT examination of the chest was performed without contrast. Coronal and sagittal reformats were performed. CT dose lowering techniques were used, to include: automated exposure control, adjus tment for patient size, and/or use of iterative reconstruction. FINDINGS: Mediastinum and Marcie: There is no axillary, mediastinal or hilar lymphadenopathy. Pleural and Pericardial spaces: There is a heterogeneous fluid collection in the left pleural space a ir contents also present on this examination. There is been interval insertion of a pigtail catheter chest tube which appears to be within the collection itself. The overall size of the collection is di fficult to definitively assess and measure given that it extends anteriorly at the lung base. This ex tension at the lung bases anteriorly appears to be a new since the previous examination. There was li bessy a small amount of fluid in this area previously. Upper Abdomen: A moderate sized sliding hiatal hernia. The visualized upper abdomen otherwise appears unremarkable. Cardiovascular: The thoracic aorta is normal in size. Lung Parenchyma and Airways: There is tree-in-bud areas of nodularity within the right upper lobe whi ch is likely due to an inflammatory or atypical infectious process. These findings are also seen with in the right lower lobe and unchanged since the previous examination. There are parenchymal changes w ithin the left lower lobe which are likely a combination of atelectasis and possibly infection. These are likely very similar to the previous examination as well. Bones: No fracture or aggressive osseous lesion. IMPRESSION: 1. No catheter chest tube insertion with residual fluid and air collection at the left lung base desc ribed above. This does not appear to have decreased in size and there is some extension of the air al alexandra the anterior medial aspect of the left lung base. 2. Unchanged tree-in-bud nodularity throughout the right lung which is likely due to an inflammatory or atypical infectious process. 2. Moderate-sized hiatal hernia.
--- NOTE | 2022-11-27 16:29 | NM ---
EXAMINATION TYPE: NM hepatobiliary w CCK DATE OF EXAM: 11/27/2022 COMPARISON: Liver ultrasound 11/26/2022 HISTORY: 67-year-old female with pain, possible cholecystitis TECHNIQUE: After the intravenous administration of 5 mCi Tc 99m Mebrofenin hepatobiliary scintigraphy is performed. Immediate images post injection. FINDINGS: There is satisfactory initial accumulation of tracer by the liver. The gallbladder is visualized wit hin 12 minutes. The small bowel activity is noted within 40 minutes. At one hour CCK was administer ed, patient was injected with 1.2 mcg of Kinevac, and gallbladder ejection fraction is calculated at 76 %, in the high normal range. Therefore there is no scintigraphic evidence of cystic or common ashley e duct obstruction to suggest acute cholecystitis or gallbladder dyskinesia. IMPRESSION: No scintigraphic evidence for acute/chronic cholecystitis or biliary dyskinesia.
[2022-11-27 17:16] LABS: Glucose,Whole Blood 127 mg/dL (70-110)
[2022-11-27] MEDS: metroNIDAZOLE-NS PMX 500 MG in SALINE 1 100ML.BAG IVPB SCH (17:31)
[2022-11-27 20:16] LABS: Glucose,Whole Blood 159 mg/dL (70-110)
[2022-11-27] MEDS: ATORVASTATIN 20 MG TAB PO SCH (20:52)
[2022-11-27] MEDS: OLANZapine 5 MG TAB PO SCH (20:52)
[2022-11-28] MEDS: HEPARIN SODIUM,PORCINE/PF 5,000 UNIT/0.5 ML SYRINGE SQ SCH ×4 (00:01→23:44)
[2022-11-28] MEDS: metroNIDAZOLE-NS PMX 500 MG in SALINE 1 100ML.BAG IVPB SCH ×4 (00:01→23:45)
[2022-11-28] MEDS: LEVOTHYROXINE 50 MCG TAB PO SCH (06:17)
[2022-11-28 07:15] LABS: Glucose,Whole Blood 169 mg/dL (70-110)
--- NOTE | 2022-11-28 07:24 | XR ---
EXAMINATION TYPE: XR chest 1V portable DATE OF EXAM: 11/28/2022 COMPARISON: 11/26/2022 HISTORY: Shortness of breath TECHNIQUE: Single frontal view of the chest is obtained. FINDINGS: There has been interval insertion of a small left-sided chest tube base. There is a loculated pleural effusion along the lateral chest wall which is stable. There are moderat e interstitial changes in the left lung base. There appears be slightly better aeration left lung bas e compared to previous. The right lung remains clear. The heart size is normal and the pulmonary vasculature is not congested. The osseous structures are i ntact. IMPRESSION: Acute cardiopulmonary disease involving the left lung base with persistent loculated lef t above. There is a smallbore chest tube left lung base. There is no pneumothorax
[2022-11-28] MEDS ORDERED: ALTEPLASE 10 MG in SODIUM CHLORIDE 0.9% 50 ML IRRIGATION ONE (08:10)
[2022-11-28] MEDS ORDERED: DORNASE ALFA 5 MG in SODIUM CHLORIDE 0.9% 50 ML IRRIGATION ONE (08:10)
--- NOTE | 2022-11-28 08:30 | P.PN ---
Subjective Progress Note Date: 11/28/22 Principal diagnosis: Community-acquired pneumonia, loculated left pleural effusion. Previous medical history of hypertension, hyperlipidemia, diabetes mellitus type 2, hypothyroid ism, anxiety/depression/bipolar disorder/schizoaffective disorder, GERD, hiatal hernia, lifetime nonsmoker, obstructive sleep apnea without home CPAP use, obesity, degenerative joint disease, memory impairment POD #5 placement of left-sided pigtail catheter by interventional radiology The patient was seen and examined sitting up in a recliner on the medical surgical unit in no acute distress eating breakfast. Denies pain or shortness of breath, states she is going home today. Left-sided pigtail catheter present to continuous wall suction, 220 mL blood-tinged drainage in the last 24 hours. Patient has had 4 doses of lytic therapy so far. Chest CT to be completed yesterday, results reviewed. Objective - Vital Signs Vital signs: Vital Signs Temp 98.2 F 11/28/22 07:12 Pulse 86 11/28/22 07:12 Resp 18 11/28/22 07:12 BP 112/78 11/28/22 07:12 Pulse Ox 96 11/28/22 07:12 FiO2 Intake & Output 11/27/22 11/28/22 11/28/22 18:59 06:59 18:59 Output Total 70 120 Balance -70 -120 Weight 97.522 kg Output: Chest Tube Drainage 70 120 Chest Tube Left Posterior 70 120 Chest Other: Voiding Method Toilet Toilet Bedside Commode Bedside Commode # Voids 1 2 - Exam CONSTITUTIONAL: Appears comfortable, cooperative, no acute distress RESPIRATORY: Lungs sounds diminished bilaterally, left greater than right. Respirations even, nonlabored. Currently on room air with oxygen saturation 96%. Able to achieve 1500 mL on incentive spirometry. Strong cough. CARDIOVASCULAR: S1, S2 present. Regular rate and rhythm. GASTROINTESTINAL: Abdomen soft, nontender, nondistended. Active bowel sounds present 4 quadrants. Tolerating diet. Positive bowel movement 11/26/22 GENITOURINARY: Continues to void INTEGUMENTARY: Skin is warm and dry NEUROLOGIC: Cranial nerves II through XII intact MUSKULOSKELETAL: Able to move all extremities, strength equal bilaterally PSYCHIATRIC: Alert and oriented to person place and time, appropriate affect, intact judgment and insight INVASIVE LINES AND TUBES: Left pigtail catheter present and connected to wall suction, no air leaks present, 120 mL blood-tinged drainage overnight, 220 mL in the last 24 hours - Allied health notes Allied health notes reviewed: nursing - Labs CBC & Chem 7: 11/27/22 04:28 11/27/22 04:28 Labs: Abnormal Lab Results - Last 24 Hours (Table) 11/27/22 11/27/22 11/27/22 Range/Units 04:28 04:28 11:19 WBC 17.14 H (4.50-10.00) X 10*3/uL RBC 3.99 L (4.10-5.20) X 10*6/uL Hgb 10.1 L (12.0-15.0) g/dL Hct 33.4 L (37.2-46.3) % MCH 25.3 L (27.0-32.0) pg MCHC 30.2 L (32.0-37.0) g/dL Plt Count 450 H (140-440) X 10*3/uL MPV 9.0 L (9.5-12.2) fL Anion Gap 9.70 L (10.00-18.00) mmol/L Glucose 124 H (70-110) mg/dL POC Glucose (mg/dL) 151 H (70-110) mg/dL 11/27/22 11/27/22 11/28/22 Range/Units 17:11 20:15 07:14 WBC (4.50-10.00) X 10*3/uL RBC (4.10-5.20) X 10*6/uL Hgb (12.0-15.0) g/dL Hct (37.2-46.3) % MCH (27.0-32.0) pg MCHC (32.0-37.0) g/dL Plt Count (140-440) X 10*3/uL MPV (9.5-12.2) fL Anion Gap (10.00-18.00) mmol/L Glucose (70-110) mg/dL POC Glucose (mg/dL) 127 H 159 H 169 H (70-110) mg/dL Microbiology - Last 24 Hours (Table) 11/23/22 11:40 Gram Stain - Final Pleural Fluid Body Fluid Culture - Final 11/23/22 12:05 Anaerobic Culture - Final Pleural Fluid - Imaging and Cardiology Chest x-ray: report reviewed, image reviewed Assessment and Plan Assessment: 1. Community-acquired pneumonia 2. Loculated left pleural effusion, likely secondary to above, status post left chest pigtail catheter placement by interventional radiology 3. Hypertension 4. Hyperlipidemia 5. Diabetes mellitus type 2 6. Hypothyroidism 7. Anxiety 8. History of depression 9. History of bipolar disorder 10. History of schizoaffective disorder 11. GERD 12. Hiatal hernia 13. Lifetime nonsmoker 14. Obstructive sleep apnea without home CPAP use 15. Obesity 16. Degenerative joint disease 17. Memory impairment Plan: 1. Will instill fifth and final dose of lytic therapy today. Once the drainage 100 mL or less pigtail catheter may be removed and patient may be discharged from cardiothoracic surgery standpoint 2. Daily chest x-rays 3. Encourage incentive spirometry use 4. Increase activity as tolerated 5. Pain control per current medication regimen 6. Medical management of other comorbidities per primary care service 7. More recommendations to follow
[2022-11-28] MEDS: MELOXICAM 7.5 MG TAB PO SCH (09:01)
[2022-11-28] MEDS: ASPIRIN 81 MG PO SCH (09:02)
[2022-11-28] MEDS: atenoloL 25 MG TAB PO SCH (09:02)
[2022-11-28] MEDS: CHOLECALCIFEROL 25 MCG (1000 IU) TABLET PO SCH (09:02)
[2022-11-28] MEDS: ASCORBIC ACID 500 MG TAB PO SCH (09:02)
[2022-11-28] MEDS: LORATADINE 10 MG TAB PO SCH (09:02)
[2022-11-28] MEDS: lamoTRIgine 100 MG TAB PO SCH (09:03)
[2022-11-28] MEDS: INSULIN ASPART (NovoLOG) 100 UNIT/ML VIAL SQ SCH ×3 (09:03→18:17)
[2022-11-28] MEDS: PARoxetine 10 MG TAB PO SCH ×3 (09:07→21:00)
[2022-11-28] MEDS: LITHIUM CARBONATE 300 MG CAP PO SCH (09:07)
[2022-11-28] MEDS: PANTOPRAZOLE 40 MG/10 ML VIAL IV SCH (09:08)
[2022-11-28] MEDS: TRIHEXYPHENIDYL 2 MG TAB PO SCH ×4 (09:08→21:00)
[2022-11-28] MEDS: OXYBUTYNIN CHLORIDE 5 MG TAB PO SCH ×2 (09:08→21:00)
[2022-11-28 09:33] LABS: % Iron Saturation 11.79 (12.00-45.00)
[2022-11-28 11:16] LABS: Glucose,Whole Blood 185 mg/dL (70-110)
--- NOTE | 2022-11-28 12:13 | P.PN ---
Subjective Progress Note Date: 11/28/22 Principal diagnosis: Pleural effusion. I'm reevaluating this patient today 11/25/2022 in follow-up on a general medical floor. Patient is currently sitting up in bed, on room air, and in no acute distress. Patient's left pigtail catheter remains in place, draining a serous colored fluid, with a total output of 490 mls over the last 24 hours. The catheter remains to suction at -20 cm water. Chest x-ray from today shows an improved left pleural effusion with pigtail catheter in place. Cardiothoracic did instill the catheter with alteplase yesterday, and plans to instill another dose of fibrinolytic therapy today. Pleural fluid cultures show no growth at this time. Blood cultures remain negative at 96 hours. No new CBC or BMP to review today. Patient's procalcitonin level 0.18 arrival, and this is being repeated. Patient remains afebrile, and her vital signs remain stable. I'm reevaluating this patient 11/26/2022 in follow-up on a general medical floor. Patient is currently sitting up in bed, on room air, in no acute distress. Patient's left pigtail catheter remains in place, and continues to drain serous colored fluid. Patient has had a total of 320 mL output over 24 hours. Pigtail catheter remains to suction at -20 cm of water. Chest x-ray from today continues to show a left pleural effusion and some pulmonary vascular congestion. She did receive another dose of alteplase by cardiothoracic surgery yesterday. Pleural fluid shows no growth at this point, however, the pleural fluid was exudative with a low glucose. Patient was continued on Rocephin for antibiotic coverage. Patient has remained afebrile. CBC from today shows a WBC count of 16.7, hemoglobin 10.5, hematocrit 32.9, crit platelets 420,000. BMP from today was stable with a sodium of 137, potassium 4.5, chloride 104, serum CO2 27, BUN 11, creatinine 0.8, glucose 126. Patient's LFTs are improving and are down to an AST of 169, ALT of 314, ALP of 161. Patient's liver ultrasound showed some hepatomegaly with borderline gallbladder wall thickening that could correlate for cholecystitis. Vital signs remain stable. I'm reevaluating this patient today 11/27/2022 in follow-up on a general medical floor. Patient is currently sitting in the chair, on room air, in no acute distress. Patient's left pigtail catheter remains in place and continues to drain a serous colored fluid. Patient has had a total of 460 mL of output in the last 24 hours. Catheter remains to suction at -20 cm of water. No new chest x-ray to review today. Was procalcitonin level was moderately high at 0.36. Patient continues to remain on empiric antibiotic coverage in the form of Rocephin. Falgyl was started today. She remains afebrile. Pleural fluid cultures show no growth so far. CBC from today shows some leukocytosis with a WBC count of 17.1, hemoglobin 10.1, hematocrit 33.4, and platelets 450,000. Patient's BMP from today shows sodium 138, potassium 4.6, chloride 105, serum CO2 23.3, BUN 9.9, creatinine 0.7, glucose 124.. Vital signs remain stable. Progress note dated 11/28/2022. The patient is seen today in room 5:30. She sitting in the chair next to the bed. She continues on room air. No IV fluids. 70 mL of fluid came out of the chest tube, yesterday. The patient is also being followed by cardiothoracic surgery, and they are periodically instilling TPA. The patient is comfortable, without respiratory distress or respiratory issues. Labs today included glucose 185, and iron of 28, TIBC of 241, percent saturation of 12, and a transferrin level of 172. Microbiologic studies have all been negative. She remains on Flagyl, and Rocephin. Objective - Vital Signs Vital signs: Vital Signs Temp 98.2 F 11/28/22 07:12 Pulse 86 11/28/22 08:00 Resp 18 11/28/22 08:00 BP 112/78 11/28/22 07:12 Pulse Ox 96 11/28/22 07:12 FiO2 Intake & Output 11/27/22 11/28/22 11/28/22 18:59 06:59 18:59 Output Total 70 120 Balance -70 -120 Weight 97.522 kg Output: Chest Tube Drainage 70 120 Chest Tube Left Posterior 70 120 Chest Other: Voiding Method Toilet Toilet Toilet Bedside Commode Bedside Commode Bedside Commode # Voids 1 2 1 - Exam No acute distress, oriented 3. Currently on room air. HEENT examination is grossly unremarkable. Neck supple. Full range of motion. No adenopathy thyromegaly or neck vein distention. Cardiovascular examination reveals regular rhythm rate. S1-S2 normal. No S3 or S4. No discernible murmur noted. Heart rate 86 bpm. Lungs reveal mild scattered rhonchi. Breath sounds equal bilaterally. No wheezes. No crackles. Room air saturation 96%. Abdomen soft bowel sounds are heard. No masses or tenderness. Extremities are intact. No cyanosis clubbing or edema. Skin is without rash or lesion. Neurologic examination is brief but nonfocal. - Labs CBC & Chem 7: 11/27/22 04:28 11/27/22 04:28 Labs: Abnormal Lab Results - Last 24 Hours (Table) 11/27/22 11/27/22 11/28/22 Range/Units 17:11 20:15 04:55 POC Glucose (mg/dL) 127 H 159 H (70-110) mg/dL Iron (50-170) ug/dL % Saturation (12.00-45.00) Transferrin 167.0 L (204.0-354.0) mg/dL 11/28/22 11/28/22 11/28/22 Range/Units 04:55 07:14 11:15 POC Glucose (mg/dL) 169 H 185 H (70-110) mg/dL Iron 28 L (50-170) ug/dL % Saturation 11.79 L (12.00-45.00) Transferrin 172.0 L (204.0-354.0) mg/dL Microbiology - Last 24 Hours (Table) 11/23/22 11:40 Gram Stain - Final Pleural Fluid Body Fluid Culture - Final 11/23/22 12:05 Anaerobic Culture - Final Pleural Fluid Assessment and Plan Assessment: Community acquired pneumonia. Loculated left-sided pleural effusion, status post pigtail catheter insertion, with instillation of TPA and alpha dornase. Leukocytosis, secondary to pneumonia. Pulmonary hypertension. Essential hypertension. Hyperlipidemia. Type 2 diabetes. Hypothyroidism. Restless leg syndrome. Bipolar disorder. Plan: Plan dated 11/28/2022. The patient appears to be doing relatively well. The patient continues to have some drainage from the pigtail catheter inserted in the left pleural space. The amount of fluid though, his been significantly reduced over the last couple of d ays. She remains on ceftriaxone and Flagyl. He'll follow and make recommendations along the way. Labs, x-rays, medications are reviewed. Her most recent pro-calcitonin level was a bit elevated. Prognosis is guarded. Time with Patient: Less than 30
--- NOTE | 2022-11-28 12:50 | P.PN ---
Subjective Progress Note Date: 11/28/22 Hospital Course: 67 year old woman with history of COPD with pulmonary hypertension, HTN, HLD, DM, hypothyroidism, bipolar disorder, restless leg syndrome presented for evaluation of chest pain. In the emergency room, patient was afebrile, 129/86, heart rate 93, 92% on room air. CBC shows leukocytosis to 17.8, anemia down to 10.7. Laboratory analysis demonstrated a sodium of 134, AST at 65, elevated ALT at 120, elevated alkaline phosphatase 159, troponin was less than 0.012, Influenza A, B, RSV, Covid were negative, and labaratory analysis was otherwise unremarkable. VBG shows a pH of 7.35, pCO2 of 46. Gallbladder ultrasound shows hepatomegaly with hepatic steatosis. CT of the abdomen/pelvis shows small to moderate fat-containing umbilical hernia, moderate to large hiatal hernia involving two thirds of the stomach and lower chest, left-sided colonic diverticulosis with a redundant sigmoid colon. CT of the chest shows left pleural effusion with evidence of loculation, extensive left base consolidation concerning for pneumonia with parapneumonic effusion versus empyema, tree and bud nodularity at the right base. EKG shows sinus rhythm with a normal axis, no evidence of ischemia. Patient was admitted for sepsis due to pneumonia. She was started on ceftriaxone/azithromycin, and received 1 dose of metronidazole in the emergency room. He was continued on IV fluids. Pulmonary and CT surgery were consulted. She ultimately had pig tail catheter placed on 11/23/22 and required Lysis instillation from cardiothoracic surgery. Subjective: Patient seen and examined at bedside. She is adamant about getting out of the hospital as soon as possible. She denies any current chest pain, shortness of breath, nausea, vomiting, diarrhea, constipation, or urinary complaints. Denies any adbominal pain. Pertinent positives and negatives as discussed above, a complete review of systems was performed and all other systems are negative. Vitals Signs Reviewed. General: nontoxic, no distress, appears at stated age Derm: warm, dry Head: atraumatic, normocephalic, symmetric Eyes: EOMI, no lid lag, anicteric sclera Mouth: no lip lesion, mucus membranes moist Cardiovascular: S1S2 reg, no murmur, positive posterior tibial pulse bilateral, Lungs: Decreased bs bilateral, no rhonchi, no rales , no accessory muscle use, chest tube in place with blood tinged fluid Abdominal: soft, non tender, no guarding, no appreciable organomegaly Ext: no gross muscle atrophy, no edema, no contractures Neuro: CN II-XI grossly intact, no focal neuro deficits Psych: Alert, oriented, appears scared Assessment and Plan: Complicated pneumonia with empyema and sepsis, possible gram-negative Persistent leukocytosis - Rocephin D # 7, has completed Zithromax 2 days, unlikely to be atypical pneumonia. -Await pleural fluid cultures -Exudative effusion via light's criteria -Pain control - CT surgery recs,Lysis treatment again today for 5th dose and final: CT mgt per CT surgery - planning for discontinuing CT tomorrow - IV abx Transaminitis Possible cholecystitis -Abdominal ultrasound showed borderline gallbladder wall thickening, could be Cholecystitis -HIDA scan - negative - abdominal pain resolved - outpatient follow up HTN - atenolol - follow BP DM 2 - hold metoformin - SSI - follow BS, Highest blood sugar is 185 in 24 horus. Hypothyroidism -synthroid Iron deficiency anemia -started on PO iron Pulm HTN RLS Bipolar disorder DVT ppx: Subcu heparin Code status: Full Code Anticipated discharge place: [facility] versus subacute rehab Anticipated discharge time: likely wednesday Objective - Vital Signs Vital signs: Vital Signs Temp 98 F 11/28/22 12:20 Pulse 75 11/28/22 12:20 Resp 18 11/28/22 12:20 BP 115/77 11/28/22 12:20 Pulse Ox 96 11/28/22 12:20 FiO2 Intake & Output 11/27/22 11/28/22 11/28/22 18:59 06:59 18:59 Output Total 70 120 Balance -70 -120 Weight 97.522 kg Output: Chest Tube Drainage 70 120 Chest Tube Left Posterior 70 120 Chest Other: Voiding Method Toilet Toilet Toilet Bedside Commode Bedside Commode Bedside Commode # Voids 1 2 1 - Labs CBC & Chem 7: 11/27/22 04:28 11/27/22 04:28 Labs: Abnormal Lab Results - Last 24 Hours (Table) 11/27/22 11/27/22 11/28/22 Range/Units 17:11 20:15 04:55 POC Glucose (mg/dL) 127 H 159 H (70-110) mg/dL Iron (50-170) ug/dL % Saturation (12.00-45.00) Transferrin 167.0 L (204.0-354.0) mg/dL 11/28/22 11/28/22 11/28/22 Range/Units 04:55 07:14 11:15 POC Glucose (mg/dL) 169 H 185 H (70-110) mg/dL Iron 28 L (50-170) ug/dL % Saturation 11.79 L (12.00-45.00) Transferrin 172.0 L (204.0-354.0) mg/dL Microbiology - Last 24 Hours (Table) 11/23/22 11:40 Gram Stain - Final Pleural Fluid Body Fluid Culture - Final 11/23/22 12:05 Anaerobic Culture - Final Pleural Fluid
[2022-11-28] MEDS: FERROUS SULFATE 325 MG TAB PO SCH (16:28)
[2022-11-28] MEDS: HYDROcodone/APAP 5-325MG 1 EACH TAB PO PRN ×2 (16:34→23:49)
[2022-11-28 17:41] LABS: Glucose,Whole Blood 165 mg/dL (70-110)
[2022-11-28] MEDS: OLANZapine 5 MG TAB PO SCH (21:00)
[2022-11-28] MEDS: ATORVASTATIN 20 MG TAB PO SCH (21:00)
[2022-11-28 21:02] LABS: Glucose,Whole Blood 145 mg/dL (70-110)
[2022-11-29] MEDS: LEVOTHYROXINE 50 MCG TAB PO SCH (06:18)
--- NOTE | 2022-11-29 07:11 | XR ---
EXAMINATION TYPE: XR chest 1V portable DATE OF EXAM: 11/29/2022 COMPARISON: 11/28/2022 HISTORY: Pleural effusion follow-up TECHNIQUE: Single frontal view of the chest is obtained. FINDINGS: There has been no significant interval change in the opacity obscuring the left hemidiaphr agm most likely combination of pleural effusion and lung infiltrate. Portion of the effusion appears to be loculated along the left lateral chest wall. The right lung is clear. The pulmonary vasculature is not congested. IMPRESSION: No significant interval change
[2022-11-29 08:13] LABS: Glucose,Whole Blood 149 mg/dL (70-110)
[2022-11-29] MEDS: INSULIN ASPART (NovoLOG) 100 UNIT/ML VIAL SQ SCH ×3 (08:15→18:06)
[2022-11-29] MEDS: MELOXICAM 7.5 MG TAB PO SCH (08:20)
[2022-11-29] MEDS: ASCORBIC ACID 500 MG TAB PO SCH (08:20)
[2022-11-29] MEDS: HEPARIN SODIUM,PORCINE/PF 5,000 UNIT/0.5 ML SYRINGE SQ SCH ×2 (08:20→15:47)
[2022-11-29] MEDS: PANTOPRAZOLE 40 MG/10 ML VIAL IV SCH (08:20)
[2022-11-29] MEDS: lamoTRIgine 100 MG TAB PO SCH (08:20)
[2022-11-29] MEDS: LORATADINE 10 MG TAB PO SCH (08:20)
[2022-11-29] MEDS: CHOLECALCIFEROL 25 MCG (1000 IU) TABLET PO SCH (08:21)
[2022-11-29] MEDS: atenoloL 25 MG TAB PO SCH (08:21)
[2022-11-29] MEDS: ASPIRIN 81 MG PO SCH (08:22)
[2022-11-29] MEDS: metroNIDAZOLE-NS PMX 500 MG in SALINE 1 100ML.BAG IVPB SCH ×2 (08:22→15:48)
[2022-11-29] MEDS: PARoxetine 10 MG TAB PO SCH ×3 (08:23→21:38)
[2022-11-29] MEDS: TRIHEXYPHENIDYL 2 MG TAB PO SCH ×4 (08:23→21:38)
[2022-11-29] MEDS: LITHIUM CARBONATE 300 MG CAP PO SCH (08:24)
[2022-11-29] MEDS: OXYBUTYNIN CHLORIDE 5 MG TAB PO SCH ×2 (08:24→21:38)
--- NOTE | 2022-11-29 10:24 | P.PN ---
Subjective Progress Note Date: 11/29/22 Principal diagnosis: Community-acquired pneumonia, loculated left pleural effusion. Previous medical history of hypertension, hyperlipidemia, diabetes mellitus type 2, hypothyroid ism, anxiety/depression/bipolar disorder/schizoaffective disorder, GERD, hiatal hernia, lifetime nonsmoker, obstructive sleep apnea without home CPAP use, obesity, degenerative joint disease, memory impairment POD #6 placement of left-sided pigtail catheter by interventional radiology The patient was seen and examined sitting up in a recliner on the medical surgical unit in no acute distress. Denies pain or shortness of breath. Left- sided pigtail catheter present to continuous wall suction, 170 mL blood-tinged drainage in the last 24 hours. Patient has had 5 doses of lytic therapy. Objective - Vital Signs Vital signs: Vital Signs Temp 98.3 F 11/29/22 08:15 Pulse 90 11/29/22 08:15 Resp 19 11/29/22 08:15 BP 147/49 11/29/22 08:15 Pulse Ox 95 11/29/22 08:15 FiO2 Intake & Output 11/28/22 11/29/22 11/29/22 18:59 06:59 18:59 Intake Total 590 Output Total 60 100 Balance -60 490 Intake: Oral 590 Output: Chest Tube Drainage 60 100 Chest Tube Left Posterior 60 100 Chest Other: Voiding Method Toilet Toilet Bedside Commode # Voids 1 2 - Exam CONSTITUTIONAL: Appears comfortable, cooperative, no acute distress RESPIRATORY: Lungs sounds diminished bilaterally. Respirations even, nonlabored. Currently on room air with oxygen saturation 95%. Able to achieve 1500 mL on incentive spirometry. Strong cough. CARDIOVASCULAR: S1, S2 present. Regular rate and rhythm. GASTROINTESTINAL: Abdomen soft, nontender, nondistended. Active bowel sounds present 4 quadrants. Tolerating diet. Positive bowel movement 11/26/22 GENITOURINARY: Continues to void INTEGUMENTARY: Skin is warm and dry NEUROLOGIC: Cranial nerves II through XII intact MUSKULOSKELETAL: Able to move all extremities, strength equal bilaterally PSYCHIATRIC: Alert and oriented to person place and time, appropriate affect, intact judgment and insight INVASIVE LINES AND TUBES: Left pigtail catheter present and connected to wall suction, no air leaks present, 100 mL blood-tinged drainage overnight, 170 mL in the last 24 hours - Allied health notes Allied health notes reviewed: nursing - Labs CBC & Chem 7: 11/27/22 04:28 11/27/22 04:28 Labs: Abnormal Lab Results - Last 24 Hours (Table) 11/28/22 11/28/22 11/28/22 Range/Units 11:15 17:39 21:01 POC Glucose (mg/dL) 185 H 165 H 145 H (70-110) mg/dL 11/29/22 Range/Units 08:12 POC Glucose (mg/dL) 149 H (70-110) mg/dL - Imaging and Cardiology Chest x-ray: report reviewed, image reviewed Assessment and Plan Assessment: 1. Community-acquired pneumonia 2. Loculated left pleural effusion, likely secondary to above, status post left chest pigtail catheter placement by interventional radiology 3. Hypertension 4. Hyperlipidemia 5. Diabetes mellitus type 2 6. Hypothyroidism 7. Anxiety 8. History of depression 9. History of bipolar disorder 10. History of schizoaffective disorder 11. GERD 12. Hiatal hernia 13. Lifetime nonsmoker 14. Obstructive sleep apnea without home CPAP use 15. Obesity 16. Degenerative joint disease 17. Memory impairment Plan: 1. No further lytic instillation. Pigtail catheter may be removed and patient may be discharged from cardiothoracic surgery standpoint 2. Daily chest x-rays 3. Encourage incentive spirometry use 4. Increase activity as tolerated 5. Pain control per current medication regimen 6. Medical management of other comorbidities per primary care service 7. Will see again on an as needed basis
--- NOTE | 2022-11-29 11:00 | P.PN ---
Subjective Progress Note Date: 11/29/22 Principal diagnosis: Pleural effusion. I'm reevaluating this patient today 11/25/2022 in follow-up on a general medical floor. Patient is currently sitting up in bed, on room air, and in no acute distress. Patient's left pigtail catheter remains in place, draining a serous colored fluid, with a total output of 490 mls over the last 24 hours. The catheter remains to suction at -20 cm water. Chest x-ray from today shows an improved left pleural effusion with pigtail catheter in place. Cardiothoracic did instill the catheter with alteplase yesterday, and plans to instill another dose of fibrinolytic therapy today. Pleural fluid cultures show no growth at this time. Blood cultures remain negative at 96 hours. No new CBC or BMP to review today. Patient's procalcitonin level 0.18 arrival, and this is being repeated. Patient remains afebrile, and her vital signs remain stable. I'm reevaluating this patient 11/26/2022 in follow-up on a general medical floor. Patient is currently sitting up in bed, on room air, in no acute distress. Patient's left pigtail catheter remains in place, and continues to drain serous colored fluid. Patient has had a total of 320 mL output over 24 hours. Pigtail catheter remains to suction at -20 cm of water. Chest x-ray from today continues to show a left pleural effusion and some pulmonary vascular congestion. She did receive another dose of alteplase by cardiothoracic surgery yesterday. Pleural fluid shows no growth at this point, however, the pleural fluid was exudative with a low glucose. Patient was continued on Rocephin for antibiotic coverage. Patient has remained afebrile. CBC from today shows a WBC count of 16.7, hemoglobin 10.5, hematocrit 32.9, crit platelets 420,000. BMP from today was stable with a sodium of 137, potassium 4.5, chloride 104, serum CO2 27, BUN 11, creatinine 0.8, glucose 126. Patient's LFTs are improving and are down to an AST of 169, ALT of 314, ALP of 161. Patient's liver ultrasound showed some hepatomegaly with borderline gallbladder wall thickening that could correlate for cholecystitis. Vital signs remain stable. I'm reevaluating this patient today 11/27/2022 in follow-up on a general medical floor. Patient is currently sitting in the chair, on room air, in no acute distress. Patient's left pigtail catheter remains in place and continues to drain a serous colored fluid. Patient has had a total of 460 mL of output in the last 24 hours. Catheter remains to suction at -20 cm of water. No new chest x-ray to review today. Was procalcitonin level was moderately high at 0.36. Patient continues to remain on empiric antibiotic coverage in the form of Rocephin. Falgyl was started today. She remains afebrile. Pleural fluid cultures show no growth so far. CBC from today shows some leukocytosis with a WBC count of 17.1, hemoglobin 10.1, hematocrit 33.4, and platelets 450,000. Patient's BMP from today shows sodium 138, potassium 4.6, chloride 105, serum CO2 23.3, BUN 9.9, creatinine 0.7, glucose 124.. Vital signs remain stable. Progress note dated 11/28/2022. The patient is seen today in room 5:30. She sitting in the chair next to the bed. She continues on room air. No IV fluids. 70 mL of fluid came out of the chest tube, yesterday. The patient is also being followed by cardiothoracic surgery, and they are periodically instilling TPA. The patient is comfortable, without respiratory distress or respiratory issues. Labs today included glucose 185, and iron of 28, TIBC of 241, percent saturation of 12, and a transferrin level of 172. Microbiologic studies have all been negative. She remains on Flagyl, and Rocephin. Progress note dated 11/29/2022. The patient is seen today in room 530. The patient is laying in bed. She is on room air. She's getting saline at 10 mL an hour. She currently is on Flagyl and Rocephin. She only had a small amount from the chest tube over the last 24 hours. She did not complain of any difficulty in her breathing. No new labs today other than a glucose of 149. Chest x-ray is compared to the prior days chest x-ray, and is essentially unchanged. There is an infiltrate/atelectasis, or area of consolidation, obscuring the left hemidiaphragm. Objective - Vital Signs Vital signs: Vital Signs Temp 98.3 F 11/29/22 08:15 Pulse 90 11/29/22 08:15 Resp 19 11/29/22 08:15 BP 147/49 11/29/22 08:15 Pulse Ox 95 11/29/22 08:15 FiO2 Intake & Output 11/28/22 11/29/22 11/29/22 18:59 06:59 18:59 Intake Total 590 Output Total 60 100 Balance -60 490 Intake: Oral 590 Output: Chest Tube Drainage 60 100 Chest Tube Left Posterior 60 100 Chest Other: Voiding Method Toilet Toilet Bedside Commode # Voids 1 2 - Exam No acute distress, oriented 3. Currently on room air. HEENT examination is grossly unremarkable. Neck supple. Full range of motion. No adenopathy thyromegaly or neck vein distention. Cardiovascular examination reveals regular rhythm rate. S1-S2 normal. No S3 or S4. No discernible murmur noted. Heart rate 90 bpm. Lungs reveal mild scattered rhonchi. Breath sounds equal bilaterally. No wheezes. No crackles. Room air saturation 95%. Abdomen soft bowel sounds are heard. No masses or tenderness. Extremities are intact. No cyanosis clubbing or edema. Skin is without rash or lesion. Neurologic examination is brief but nonfocal. - Labs CBC & Chem 7: 11/27/22 04:28 11/27/22 04:28 Labs: Abnormal Lab Results - Last 24 Hours (Table) 11/28/22 11/28/22 11/28/22 Range/Units 11:15 17:39 21:01 POC Glucose (mg/dL) 185 H 165 H 145 H (70-110) mg/dL 11/29/22 Range/Units 08:12 POC Glucose (mg/dL) 149 H (70-110) mg/dL Assessment and Plan Assessment: Community acquired pneumonia. Loculated left-sided pleural effusion, status post pigtail catheter insertion, with instillation of TPA and alpha dornase. Leukocytosis, secondary to pneumonia. Pulmonary hypertension. Essential hypertension. Hyperlipidemia. Type 2 diabetes. Hypothyroidism. Restless leg syndrome. Bipolar disorder. Plan: Plan dated 11/28/2022. The patient appears to be doing relatively well. The patient continues to have some drainage from the pigtail catheter inserted in the left pleural space. The amount of fluid though, his been significantly reduced over the last couple of days. She remains on ceftriaxone and Flagyl. He'll follow and make recommendations along the way. Labs, x-rays, medications are reviewed. Her most recent pro-calcitonin level was a bit elevated. Prognosis is guarded. Plan dated 11/29/2022. The patient's reasonably stable. Cardiothoracic surgery will sign off. The patient's chest x-ray stable, and unchanged. She's not requiring any supplemental oxygen. She remains on ceftriaxone and Flagyl. All microbiologic studies are negative thus far. We will continue to follow and make recommendations along the way. Prognosis is guarded. Time with Patient: Less than 30
[2022-11-29 11:43] LABS: Glucose,Whole Blood 192 mg/dL (70-110)
--- NOTE | 2022-11-29 12:09 | P.PN ---
Subjective Progress Note Date: 11/29/22 Hospital Course: 67 year old woman with history of COPD with pulmonary hypertension, HTN, HLD, DM, hypothyroidism, bipolar disorder, restless leg syndrome presented for evaluation of chest pain. In the emergency room, patient was afebrile, 129/86, heart rate 93, 92% on room air. CBC shows leukocytosis to 17.8, anemia down to 10.7. Laboratory analysis demonstrated a sodium of 134, AST at 65, elevated ALT at 120, elevated alkaline phosphatase 159, troponin was less than 0.012, Influenza A, B, RSV, Covid were negative, and labaratory analysis was otherwise unremarkable. VBG shows a pH of 7.35, pCO2 of 46. Gallbladder ultrasound shows hepatomegaly with hepatic steatosis. CT of the abdomen/pelvis shows small to moderate fat-containing umbilical hernia, moderate to large hiatal hernia involving two thirds of the stomach and lower chest, left-sided colonic diverticulosis with a redundant sigmoid colon. CT of the chest shows left pleural effusion with evidence of loculation, extensive left base consolidation concerning for pneumonia with parapneumonic effusion versus empyema, tree and bud nodularity at the right base. EKG shows sinus rhythm with a normal axis, no evidence of ischemia. Patient was admitted for sepsis due to pneumonia. She was started on ceftriaxone/azithromycin, and received 1 dose of metronidazole in the emergency room. He was continued on IV fluids. Pulmonary and CT surgery were consulted. She ultimately had pig tail catheter placed on 11/23/22 and required Lysis instillation from cardiothoracic surgery. Chest tube output has decreased. Plan is to remove the tube by IR tomorrow and discharge on oral abx. Subjective: Patient seen and examined at bedside. She is adamant about getting out of the hospital as soon as possible. She denies any current chest pain, shortness of breath, nausea, vomiting, diarrhea, constipation, or urinary complaints. Denies any adbominal pain. Pertinent positives and negatives as discussed above, a complete review of systems was performed and all other systems are negative. Vitals Signs Reviewed. General: nontoxic, no distress, appears at stated age Derm: warm, dry Head: atraumatic, normocephalic, symmetric Eyes: EOMI, no lid lag, anicteric sclera Mouth: no lip lesion, mucus membranes moist Cardiovascular: S1S2 reg, no murmur, positive posterior tibial pulse bilateral, Lungs: Decreased bs bilateral, no rhonchi, no rales , no accessory muscle use, chest tube in place with blood tinged fluid Abdominal: soft, non tender, no guarding, no appreciable organomegaly Ext: no gross muscle atrophy, no edema, no contractures Neuro: CN II-XI grossly intact, no focal neuro deficits Psych: Alert, oriented, appears scared Assessment and Plan: Complicated pneumonia with empyema and sepsis, possible gram-negative Persistent leukocytosis -pleural fluid cx NGTD -Exudative effusion via light's criteria -Pain control - CT surgery recs,Lysis treatment again today for 5th dose and final: CT mgt per CT surgery - Chest tube output has been declining - can be removed tomorrow by IR - IV abx Transaminitis Possible cholecystitis -Abdominal ultrasound showed borderline gallbladder wall thickening, could be Cholecystitis -HIDA scan - negative - abdominal pain resolved - outpatient follow up HTN - atenolol - follow BP DM 2 - hold metoformin - SSI - follow BS, Highest blood sugar is 192 in 24 horus. Hypothyroidism -synthroid Iron deficiency anemia -started on PO iron Pulm HTN RLS Bipolar disorder DVT ppx: Subcu heparin Code status: Full Code Anticipated discharge place: [place] [facility] versus subacute rehab Anticipated discharge time: likely wednesday Objective - Vital Signs Vital signs: Vital Signs Temp 98.3 F 11/29/22 08:15 Pulse 90 11/29/22 08:15 Resp 19 11/29/22 08:15 BP 147/49 11/29/22 08:15 Pulse Ox 95 11/29/22 08:15 FiO2 Intake & Output 11/28/22 11/29/22 11/29/22 18:59 06:59 18:59 Intake Total 590 Output Total 60 100 Balance -60 490 Intake: Oral 590 Output: Chest Tube Drainage 60 100 Chest Tube Left Posterior 60 100 Chest Other: Voiding Method Toilet Toilet Toilet Bedside Commode # Voids 1 2 - Labs CBC & Chem 7: 11/27/22 04:28 11/27/22 04:28 Labs: Abnormal Lab Results - Last 24 Hours (Table) 11/28/22 11/28/22 11/29/22 Range/Units 17:39 21:01 08:12 POC Glucose (mg/dL) 165 H 145 H 149 H (70-110) mg/dL 11/29/22 Range/Units 11:42 POC Glucose (mg/dL) 192 H (70-110) mg/dL
[2022-11-29] MEDS: FERROUS SULFATE 325 MG TAB PO SCH (13:11)
[2022-11-29] MEDS: HYDROcodone/APAP 5-325MG 1 EACH TAB PO PRN (15:47)
[2022-11-29 17:52] LABS: Glucose,Whole Blood 167 mg/dL (70-110)
[2022-11-29 20:16] LABS: Glucose,Whole Blood 169 mg/dL (70-110)
[2022-11-29] MEDS: OLANZapine 5 MG TAB PO SCH (21:38)
[2022-11-29] MEDS: ATORVASTATIN 20 MG TAB PO SCH (21:38)
[2022-11-30] MEDS: HEPARIN SODIUM,PORCINE/PF 5,000 UNIT/0.5 ML SYRINGE SQ SCH ×4 (00:04→23:39)
[2022-11-30] MEDS: metroNIDAZOLE-NS PMX 500 MG in SALINE 1 100ML.BAG IVPB SCH ×4 (00:05→23:39)
[2022-11-30] MEDS: LEVOTHYROXINE 50 MCG TAB PO SCH (06:02)
[2022-11-30 07:01] LABS: Glucose,Whole Blood 130 mg/dL (70-110)
[2022-11-30] MEDS: MELOXICAM 7.5 MG TAB PO SCH (08:42)
[2022-11-30] MEDS: CHOLECALCIFEROL 25 MCG (1000 IU) TABLET PO SCH (08:43)
[2022-11-30] MEDS: atenoloL 25 MG TAB PO SCH (08:43)
[2022-11-30] MEDS: ASCORBIC ACID 500 MG TAB PO SCH (08:43)
[2022-11-30] MEDS: LORATADINE 10 MG TAB PO SCH (08:43)
[2022-11-30] MEDS: INSULIN ASPART (NovoLOG) 100 UNIT/ML VIAL SQ SCH ×3 (08:43→17:16)
[2022-11-30] MEDS: lamoTRIgine 100 MG TAB PO SCH (08:43)
[2022-11-30] MEDS: ASPIRIN 81 MG PO SCH (08:43)
[2022-11-30] MEDS: FERROUS SULFATE 325 MG TAB PO SCH (08:43)
[2022-11-30] MEDS: TRIHEXYPHENIDYL 2 MG TAB PO SCH ×4 (08:45→21:12)
[2022-11-30] MEDS: LITHIUM CARBONATE 300 MG CAP PO SCH (08:45)
[2022-11-30] MEDS: PARoxetine 10 MG TAB PO SCH ×3 (08:45→21:11)
[2022-11-30] MEDS: OXYBUTYNIN CHLORIDE 5 MG TAB PO SCH ×2 (08:46→21:11)
[2022-11-30] MEDS: PANTOPRAZOLE 40 MG/10 ML VIAL IV SCH (08:46)
--- NOTE | 2022-11-30 10:20 | P.PN ---
Subjective Progress Note Date: 11/30/22 I'm reevaluating this patient today 11/25/2022 in follow-up on a general medical floor. Patient is currently sitting up in bed, on room air, and in no acute distress. Patient's left pigtail catheter remains in place, draining a serous colored fluid, with a total output of 490 mls over the last 24 hours. The catheter remains to suction at -20 cm water. Chest x-ray from today shows an improved left pleural effusion with pigtail catheter in place. Cardiothoracic did instill the catheter with alteplase yesterday, and plans to instill another dose of fibrinolytic therapy today. Pleural fluid cultures show no growth at this time. Blood cultures remain negative at 96 hours. No new CBC or BMP to albaro zeng today. Patient's procalcitonin level 0.18 arrival, and this is being repeated. Patient remains afebrile, and her vital signs remain stable. I'm reevaluating this patient 11/26/2022 in follow-up on a general medical floor. Patient is currently sitting up in bed, on room air, in no acute dis tress. Patient's left pigtail catheter remains in place, and continues to drain serous colored fluid. Patient has had a total of 320 mL output over 24 hours. Pigtail catheter remains to suction at -20 cm of water. Chest x-ray from today continues to show a left pleural effusion and some pulmonary vascular congestion. She did receive another dose of alteplase by cardiothoracic surgery yesterday. Pleural fluid shows no growth at this point, however, the pleural fluid was exudative with a low glucose. Patient was continued on Rocephin for antibiotic coverage. Patient has remained afebrile. CBC from today shows a WBC count of 16.7, hemoglobin 10.5, hematocrit 32.9, crit platelets 420,000. BMP from today was stable with a sodium of 137, potassium 4.5, chloride 104, serum CO2 27, BUN 11, creatinine 0.8, glucose 126. Patient's LFTs are improving and are down to an AST of 169, ALT of 314, ALP of 161. Patient's liver ultrasound showed some hepatomegaly with borderline gallbladder wall thickening that could correlate for cholecystitis. Vital signs remain stable. I'm reevaluating this patient today 11/27/2022 in follow-up on a general medical floor. Patient is currently sitting in the chair, on room air, in no acute distress. Patient's left pigtail catheter remains in place and continues to drain a serous colored fluid. Patient has had a total of 460 mL of output in the last 24 hours. Catheter remains to suction at -20 cm of water. No new chest x-ray to review today. Was procalcitonin level was moderately high at 0.36. Patient continues to remain on empiric antibiotic coverage in the form of Rocephin. Falgyl was started today. She remains afebrile. Pleural fluid cul tures show no growth so far. CBC from today shows some leukocytosis with a WBC count of 17.1, hemoglobin 10.1, hematocrit 33.4, and platelets 450,000. Patient's BMP from today shows sodium 138, potassium 4.6, chloride 105, serum CO2 23.3, BUN 9.9, creatinine 0.7, glucose 124.. Vital signs remain stable. Progress note dated 11/28/2022. The patient is seen today in room 5:30. She sitting in the chair next to the bed. She continues on room air. No IV fluids. 70 mL of fluid came out of the chest tube, yesterday. The patient is also being followed by cardiothoracic surgery, and they are periodically instilling TPA. The patient is comfortable, without respiratory distress or respiratory issues. Labs today included glucose 185, and iron of 28, TIBC of 241, percent saturation of 12, and a transferrin level of 172. Microbiologic studies have all been negative. She remains on Flagyl, and Rocephin. Progress note dated 11/29/2022. The patient is seen today in room 530. The patient is laying in bed. She is on room air. She's getting saline at 10 mL an hour. She currently is on Flagyl and Rocephin. She only had a small amount from the chest tube over the last 24 hours. She did not complain of any difficulty in her breathing. No new labs today other than a glucose of 149. Chest x-ray is compared to the prior days chest x-ray, and is essentially unchanged. There is an infiltrate/atelectasis, or area of consolidation, obscuring the left hemidiaphragm. On today's evaluation of 11/30/2022, the patient is being seen for a follow-up. She is a case of pneumonia with a lot of left-sided pleural effusion and the patient is post pigtail catheter insertion and this was done by interventional radiology and the patient has received lytic therapy. There was adequate drai nage of the left-sided pleural effusion. The most recent chest x-ray showed some residual opacification and a loculated residual pleural effusion on the left. The patient otherwise is feeling well. Cultures have been negative. The patient has multiple comorbidities including hypertension and hyperlipidemia and diabetes mellitus and hypothyroidism. The patient also has history of mental health issues with depression/bipolar disorder/schizoaffective disorder. She has obstructive sleep apnea without being treated with CPAP. In terms of cultures, the cultures from the pleural fluid came back negative. Antibiotic coverage includes IV Rocephin 2 g every 24 hours. Home medications have been all resume the patient's WBC count has dropped down to 17 and the patient has a hemoglobin of 10.1. Renal function is stable for now. Objective - Vital Signs Vital signs: Vital Signs Temp 97.5 F L 11/30/22 07:01 Pulse 85 11/30/22 07:01 Resp 16 11/30/22 07:01 BP 153/83 11/30/22 07:01 Pulse Ox 95 11/30/22 07:01 FiO2 Intake & Output 11/29/22 11/30/22 11/30/22 18:59 06:59 18:59 Output Total 10 Balance -10 Output: Chest Tube Drainage 10 Chest Tube Left Posterior 10 Chest Other: Voiding Method Toilet Toilet # Voids 1 - Exam No acute distress, oriented 3. Currently on room air. HEENT examination is grossly unremarkable. Neck supple. Full range of motion. No adenopathy thyromegaly or neck vein di stention. Cardiovascular examination reveals regular rhythm rate. S1-S2 normal. No S3 or S4. No discernible murmur noted. Lungs reveal mild scattered rhonchi. Breath sounds equal bilaterally. No wheezes. No crackles. Abdomen soft bowel sounds are heard. No masses or tenderness. Extremities are intact. No cyanosis clubbing or edema. Skin is without rash or lesion. Neurologic examination is brief but nonfocal. - Labs CBC & Chem 7: 11/27/22 04:28 11/27/22 04:28 Labs: Abnormal Lab Results - Last 24 Hours (Table) 11/29/22 11/29/22 11/29/22 Range/Units 11:42 17:51 20:14 POC Glucose (mg/dL) 192 H 167 H 169 H (70-110) mg/dL 11/30/22 Range/Units 06:59 POC Glucose (mg/dL) 130 H (70-110) mg/dL Assessment and Plan Plan: Community acquired pneumonia Acute hypoxic respiratory failure secondary to a left lung pneumonia, likely community-acquired Parapneumonic parapneumonic pneumonic left-sided pleural effusion post pigtail catheter insertion with adequate drainage. The patient also required some with instillation to improve drainage Loculated left-sided pleural effusion, status post pigtail catheter insertion, with instillation of TPA and alpha dornase. Leukocytosis, secondary to pneumonia. Improving Pulmonary hypertension. Essential hypertension. Hyperlipidemia. Type 2 diabetes. Hypothyroidism. Restless leg syndrome. Bipolar disorder. Plan: Continue IV Rocephin Obtain a chest x-ray today The output over the past 24 hours has been 160 mL. We'll going to monitor the output again. Obtain a CAT scan of the chest tomorrow and decide if ongoing drainage is needed. Continue same antibiotic coverage. Encourage use incentive spirometer. Will follow.
--- NOTE | 2022-11-30 11:14 | XR ---
EXAMINATION TYPE: XR chest 1V portable DATE OF EXAM: 11/30/2022 11:09 AM COMPARISON: Chest radiographs from 11/29/2022. TECHNIQUE: XR chest 1V portable Portable AP radiograph of the chest. CLINICAL INDICATION:Female, 67 years old with history of left pleural effusion; FINDINGS: Lungs/Pleura: Similar appearance of left basilar patchy airspace opacity and effusion. Right lung is clear. No pneumothorax. Pulmonary vascularity: Unremarkable. Heart/mediastinum: Cardiomediastinal silhouette is partially obscured due to overlying and adjacent o pacities. Musculoskeletal: No acute osseous pathology. Other findings: None Lines/Tubes: Left pleural pigtail catheter is in stable position. IMPRESSION: Small left pleural effusion with associated airspace opacity which may represent atelectasis and/or i nfiltrate. Stable left pleural pigtail catheter.
[2022-11-30 11:18] LABS: Glucose,Whole Blood 157 mg/dL (70-110)
[2022-11-30] MEDS: HYDROcodone/APAP 5-325MG 1 EACH TAB PO PRN (11:37)
--- NOTE | 2022-11-30 13:36 | P.PN ---
Subjective Progress Note Date: 11/30/22 Hospital Course: 67 year old woman with history of COPD with pulmonary hypertension, HTN, HLD, DM, hypothyroidism, bipolar disorder, restless leg syndrome presented for evaluation of chest pain. In the emergency room, patient was afebrile, 129/86, heart rate 93, 92% on room air. CBC shows leukocytosis to 17.8, anemia down to 10.7. Laboratory analysis demonstrated a sodium of 134, AST at 65, elevated ALT at 120, elevated alkaline phosphatase 159, troponin was less than 0.012, Influenza A, B, RSV, Covid were negative, and labaratory analysis was otherwise unremarkable. VBG shows a pH of 7.35, pCO2 of 46. Gallbladder ultrasound shows hepatomegaly with hepatic steatosis. CT of the abdomen/pelvis shows small to moderate fat-containing umbilical hernia, moderate to large hiatal hernia involving two thirds of the stomach and lower chest, left-sided colonic diverticulosis with a redundant sigmoid colon. CT of the chest shows left pleural effusion with evidence of loculation, extensive left base consolidation concerning for pneumonia with parapneumonic effusion versus empyema, tree and bud nodularity at the right base. EKG shows sinus rhythm with a normal axis, no evidence of ischemia. Patient was admitted for sepsis due to pneumonia. She was started on ceftriaxone/azithromycin, and received 1 dose of metronidazole in the emergency room. He was continued on IV fluids. Pulmonary and CT surgery were consulted. She ultimately had pig tail catheter placed on 11/23/22 and required Lysis instillation from cardiothoracic surgery. Chest tube output has decreased. Chest tube removed. CT chest pending tomorrow per pulmonology. Likely dc tomorrow. Subjective: Patient seen and examined at bedside. She is adamant about getting out of the hospital as soon as possible. She denies any current chest pain, shortness of breath, nausea, vomiting, diarrhea, constipation, or urinary complaints. Denies any adbominal pain. Pertinent positives and negatives as discussed above, a complete review of systems was performed and all other systems are negative. Vitals Signs Reviewed. General: nontoxic, no distress, appears at stated age Derm: warm, dry Head: atraumatic, normocephalic, symmetric Eyes: EOMI, no lid lag, anicteric sclera Mouth: no lip lesion, mucus membranes moist Cardiovascular: S1S2 reg, no murmur, positive posterior tibial pulse bilateral, Lungs: Decreased bs bilateral, no rhonchi, no rales , no accessory muscle use Abdominal: soft, non tender, no guarding, no appreciable organomegaly Ext: no gross muscle atrophy, no edema, no contractures Neuro: CN II-XI grossly intact, no focal neuro deficits Psych: Alert, oriented, appears scared Assessment and Plan: Complicated pneumonia with empyema and sepsis, possible gram-negative Persistent leukocytosis -pleural fluid cx NGTD -Exudative effusion via light's criteria -Pain control - CT surgery recs, s/p Lysis treatment - total of 5 doses - Chest tube output has been declining s/p removal per CT surgery - IV abx - repeat CT chest per pulmonary Transaminitis Possible cholecystitis -Abdominal ultrasound showed borderline gallbladder wall thickening, could be Cholecystitis -HIDA scan - negative - abdominal pain resolved - outpatient follow up HTN - atenolol - follow BP DM 2 - hold metoformin - SSI - follow BS, Highest blood sugar is 169 in 24 horus. Hypothyroidism -synthroid Iron deficiency anemia - on PO iron Pulm HTN RLS Bipolar disorder DVT ppx: Subcu heparin Code status: Full Code Anticipated discharge place: [place] [facility] Anticipated discharge time: likely tomorrow Objective - Vital Signs Vital signs: Vital Signs Temp 98.3 F 11/30/22 12:38 Pulse 67 11/30/22 12:38 Resp 16 11/30/22 12:38 BP 104/69 11/30/22 12:38 Pulse Ox 94 L 11/30/22 12:38 FiO2 Intake & Output 11/29/22 11/30/22 11/30/22 18:59 06:59 18:59 Output Total 10 Balance -10 Output: Chest Tube Drainage 10 Chest Tube Left Posterior 10 Chest Other: Voiding Method Toilet Toilet # Voids 1 - Labs CBC & Chem 7: 11/27/22 04:28 11/27/22 04:28 Labs: Abnormal Lab Results - Last 24 Hours (Table) 11/29/22 11/29/22 11/30/22 Range/Units 17:51 20:14 06:59 POC Glucose (mg/dL) 167 H 169 H 130 H (70-110) mg/dL 11/30/22 Range/Units 11:16 POC Glucose (mg/dL) 157 H (70-110) mg/dL
[2022-11-30 17:10] LABS: Glucose,Whole Blood 109 mg/dL (70-110)
[2022-11-30 20:32] LABS: Glucose,Whole Blood 179 mg/dL (70-110)
[2022-11-30] MEDS: ATORVASTATIN 20 MG TAB PO SCH (21:11)
[2022-11-30] MEDS: OLANZapine 5 MG TAB PO SCH (21:11)
[2022-12-01] MEDS: LEVOTHYROXINE 50 MCG TAB PO SCH (06:09)
[2022-12-01 07:12] LABS: Glucose,Whole Blood 153 mg/dL (70-110)
[2022-12-01 07:55] VITALS: RESP 18
[2022-12-01] MEDS: atenoloL 25 MG TAB PO SCH (09:45)
[2022-12-01] MEDS: CHOLECALCIFEROL 25 MCG (1000 IU) TABLET PO SCH (09:45)
[2022-12-01] MEDS: HYDROcodone/APAP 5-325MG 1 EACH TAB PO PRN (09:45)
[2022-12-01] MEDS: LORATADINE 10 MG TAB PO SCH (09:45)
[2022-12-01] MEDS: MELOXICAM 7.5 MG TAB PO SCH (09:45)
[2022-12-01] MEDS: ASCORBIC ACID 500 MG TAB PO SCH (09:45)
[2022-12-01] MEDS: ASPIRIN 81 MG PO SCH (09:45)
[2022-12-01] MEDS: lamoTRIgine 100 MG TAB PO SCH (09:45)
[2022-12-01] MEDS: PANTOPRAZOLE 40 MG/10 ML VIAL IV SCH (09:46)
[2022-12-01] MEDS: HEPARIN SODIUM,PORCINE/PF 5,000 UNIT/0.5 ML SYRINGE SQ SCH (09:46)
[2022-12-01] MEDS: metroNIDAZOLE-NS PMX 500 MG in SALINE 1 100ML.BAG IVPB SCH (09:47)
[2022-12-01] MEDS: INSULIN ASPART (NovoLOG) 100 UNIT/ML VIAL SQ SCH ×2 (09:47→13:16)
[2022-12-01] MEDS: TRIHEXYPHENIDYL 2 MG TAB PO SCH ×2 (09:48→13:15)
[2022-12-01] MEDS: PARoxetine 10 MG TAB PO SCH (09:48)
[2022-12-01] MEDS: LITHIUM CARBONATE 300 MG CAP PO SCH (09:49)
[2022-12-01] MEDS: OXYBUTYNIN CHLORIDE 5 MG TAB PO SCH (09:50)
--- NOTE | 2022-12-01 10:06 | P.PN ---
Subjective Progress Note Date: 12/01/22 I'm reevaluating this patient today 11/25/2022 in follow-up on a general medical floor. Patient is currently sitting up in bed, on room air, and in no acute distress. Patient's left pigtail catheter remains in place, draining a serous colored fluid, with a total output of 490 mls over the last 24 hours. The catheter remains to suction at -20 cm water. Chest x-ray from today shows an improved left pleural effusion with pigtail catheter in place. Cardiothoracic did instill the catheter with alteplase yesterday, and plans to instill another dose of fibrinolytic therapy today. Pleural fluid cultures show no growth at this time. Blood cultures remain negative at 96 hours. No new CBC or BMP to albaro zeng today. Patient's procalcitonin level 0.18 arrival, and this is being repeated. Patient remains afebrile, and her vital signs remain stable. I'm reevaluating this patient 11/26/2022 in follow-up on a general medical floor. Patient is currently sitting up in bed, on room air, in no acute dis tress. Patient's left pigtail catheter remains in place, and continues to drain serous colored fluid. Patient has had a total of 320 mL output over 24 hours. Pigtail catheter remains to suction at -20 cm of water. Chest x-ray from today continues to show a left pleural effusion and some pulmonary vascular congestion. She did receive another dose of alteplase by cardiothoracic surgery yesterday. Pleural fluid shows no growth at this point, however, the pleural fluid was exudative with a low glucose. Patient was continued on Rocephin for antibiotic coverage. Patient has remained afebrile. CBC from today shows a WBC count of 16.7, hemoglobin 10.5, hematocrit 32.9, crit platelets 420,000. BMP from today was stable with a sodium of 137, potassium 4.5, chloride 104, serum CO2 27, BUN 11, creatinine 0.8, glucose 126. Patient's LFTs are improving and are down to an AST of 169, ALT of 314, ALP of 161. Patient's liver ultrasound showed some hepatomegaly with borderline gallbladder wall thickening that could correlate for cholecystitis. Vital signs remain stable. I'm reevaluating this patient today 11/27/2022 in follow-up on a general medical floor. Patient is currently sitting in the chair, on room air, in no acute distress. Patient's left pigtail catheter remains in place and continues to drain a serous colored fluid. Patient has had a total of 460 mL of output in the last 24 hours. Catheter remains to suction at -20 cm of water. No new chest x-ray to review today. Was procalcitonin level was moderately high at 0.36. Patient continues to remain on empiric antibiotic coverage in the form of Rocephin. Falgyl was started today. She remains afebrile. Pleural fluid cul tures show no growth so far. CBC from today shows some leukocytosis with a WBC count of 17.1, hemoglobin 10.1, hematocrit 33.4, and platelets 450,000. Patient's BMP from today shows sodium 138, potassium 4.6, chloride 105, serum CO2 23.3, BUN 9.9, creatinine 0.7, glucose 124.. Vital signs remain stable. Progress note dated 11/28/2022. The patient is seen today in room 5:30. She sitting in the chair next to the bed. She continues on room air. No IV fluids. 70 mL of fluid came out of the chest tube, yesterday. The patient is also being followed by cardiothoracic surgery, and they are periodically instilling TPA. The patient is comfortable, without respiratory distress or respiratory issues. Labs today included glucose 185, and iron of 28, TIBC of 241, percent saturation of 12, and a transferrin level of 172. Microbiologic studies have all been negative. She remains on Flagyl, and Rocephin. Progress note dated 11/29/2022. The patient is seen today in room 530. The patient is laying in bed. She is on room air. She's getting saline at 10 mL an hour. She currently is on Flagyl and Rocephin. She only had a small amount from the chest tube over the last 24 hours. She did not complain of any difficulty in her breathing. No new labs today other than a glucose of 149. Chest x-ray is compared to the prior days chest x-ray, and is essentially unchanged. There is an infiltrate/atelectasis, or area of consolidation, obscuring the left hemidiaphragm. On today's evaluation of 11/30/2022, the patient is being seen for a follow-up. She is a case of pneumonia with a lot of left-sided pleural effusion and the patient is post pigtail catheter insertion and this was done by interventional radiology and the patient has received lytic therapy. There was adequate drai nage of the left-sided pleural effusion. The most recent chest x-ray showed some residual opacification and a loculated residual pleural effusion on the left. The patient otherwise is feeling well. Cultures have been negative. The patient has multiple comorbidities including hypertension and hyperlipidemia and diabetes mellitus and hypothyroidism. The patient also has history of mental health issues with depression/bipolar disorder/schizoaffective disorder. She has obstructive sleep apnea without being treated with CPAP. In terms of cultures, the cultures from the pleural fluid came back negative. Antibiotic coverage includes IV Rocephin 2 g every 24 hours. Home medications have been all resume the patient's WBC count has dropped down to 17 and the patient has a hemoglobin of 10.1. Renal function is stable for now. 12/01/2022, the patient is being seen for a follow-up. The pigtail catheter was removed yesterday and the patient is currently on room air oxygen and she is calm and comfortable and she doesn't have any significant complaints. The patient wants to go home. She remains on IV Rocephin 2 g every 24 hours. In terms of her blood work, the patient has no recent blood work. Most recent blood work was obtained on 11/27/2022. Cultures were all negative. The chest x-ray from yesterday showed a small left-sided pleural effusion and airspace disease/atelectasis. Note that back in the pleural catheter was still in place. No other significant issues for now. She is active. She is moving around without help of a walker. No signs of any respiratory distress. Objective - Vital Signs Vital signs: Vital Signs Temp 98.4 F 12/01/22 07:15 Pulse 71 12/01/22 07:15 Resp 18 12/01/22 07:15 BP 118/77 12/01/22 07:15 Pulse Ox 96 12/01/22 07:15 FiO2 Intake & Output 11/30/22 12/01/22 12/01/22 18:59 06:59 18:59 Output Total 0 Balance 0 Output: Chest Tube Drainage 0 Chest Tube Left Posterior 0 Chest Other: Voiding Method Toilet # Voids 3 1 - Exam No acute distress, oriented 3. Currently on room air. HEENT examination is grossly unremarkable. Neck supple. Full range of motion. No adenopathy thyromegaly or neck vein distention. Cardiovascular examination reveals regular rhythm rate. S1-S2 normal. No S3 or S4. No discernible murmur noted. Lungs reveal mild scattered rhonchi. Breath sounds equal bilaterally. No wheezes. No crackles. Abdomen soft bowel sounds are heard. No masses or tenderness. Extremities are intact. No cyanosis clubbing or edema. Skin is without rash or lesion. Neurologic examination is brief but nonfocal. - Labs CBC & Chem 7: 11/27/22 04:28 11/27/22 04:28 Labs: Abnormal Lab Results - Last 24 Hours (Table) 11/30/22 11/30/22 12/01/22 Range/Units 11:16 20:30 07:11 POC Glucose (mg/dL) 157 H 179 H 153 H (70-110) mg/dL Assessment and Plan Plan: Community acquired pneumonia, improved Acute hypoxic respiratory failure secondary to a left lung pneumonia, likely community-acquired Parapneumonic parapneumonic pneumonic left-sided pleural effusion post pigtail catheter insertion with adequate drainage. The patient also required some with instillation to improve drainage, the pigtail catheter was removed and the patient remains on IV Rocephin Loculated left-sided pleural effusion, status post pigtail catheter insertion, with instillation of TPA and alpha dornase, and subsequent removal of the chest tube Leukocytosis, secondary to pneumonia. Improving Pulmonary hypertension. Essential hypertension. Hyperlipidemia. Type 2 diabetes. Hypothyroidism. Restless leg syndrome. Bipolar disorder. Plan: Continue IV Rocephin Chest CT witout contrast Continue same antibiotic coverage. Repeat CBC Encourage use incentive spirometer. Will follow.
[2022-12-01 10:36] LABS: Basophils # (A) 0.1 k/uL (0-0.2); Basophils % (A) 1 %; Eosinophils # (A) 0.3 k/uL (0-0.7); Eosinophils % (A) 2 %; HCT 37.1 % (34.0-46.0); HGB 11.7 gm/dL (11.4-16.0); Hypochromasia Slight; Lymphocytes # (A) 2.3 k/uL (1.0-4.8); Lymphocytes % (A) 14 %; MCH 25.5 pg (25.0-35.0); MCHC 31.4 g/dL (31.0-37.0); MCV 81.3 fL (80.0-100.0); Mean Platelet Volume 6.8; Monocytes # (A) 0.7 k/uL (0-1.0); Monocytes % (A) 4 %; Neutrophils # (A) 12.7 k/uL (1.3-7.7); Neutrophils % (A) 78 %; Platelet Count 575 k/uL (150-450); Poikilocytosis Slight; RBC 4.57 m/uL (3.80-5.40); RDW 14.9 % (11.5-15.5); WBC 16.5 k/uL (3.8-10.6)
[2022-12-01 11:10] LABS: Glucose,Whole Blood 149 mg/dL (70-110)
--- NOTE | 2022-12-01 11:41 | CT ---
EXAMINATION TYPE: CT chest wo con DATE OF EXAM: 12/01/2022 COMPARISON: 11/27/2022 HISTORY: Evaluate pleural effusion CT DLP: 409.[address] of the chest was performed with lung and mediastinal window settings submitted. The la ck of contrast limits evaluation of the vascular, mediastinal and parenchymal structures including th e upper abdomen. LUNGS: Right upper lobe nodular infiltrate persists unchanged. Pleural-parenchymal opacity left lower lobe is also unchanged. There is a persistent left lower lobe posterior collection with internal foc i of air measuring 6.0 x 3.3 x 3.7 cm. The collection does appear to be smaller than on prior study. Drainage catheter has been removed in the interval. MEDIASTINUM/DEANNA: Thoracic aorta is of normal caliber with limited evaluation given lack of contrast . The heart is not enlarged. No evidence for mediastinal mass. No lymph nodes greater than 1cm. UPPER ABDOMEN: No significant abnormality is seen. OTHER: No significant other abnormality. IMPRESSION: 1. Persistent but slightly smaller collection left lower lobe. As noted above. Drainage catheter has been removed in the interval. Persistent surrounding pleural-parenchymal opacity. Stable nodular inf iltrate right upper lobe.
[2022-12-01 12:58] VITALS: BP 109/64; PULSE 69; TEMP 98
[2022-12-01] MEDS: FERROUS SULFATE 325 MG TAB PO SCH (13:15)
--- NOTE | 2022-12-01 15:30 | P.DS ---
Providers Date of admission: 11/20/22 10:53 Expected date of discharge: 12/01/22 Attending physician: Jennifer Trinh DO Consults: 11/20/22 13:13 Consult Physician Routine Consulting Provider: Kyrie Garcia Consult Reason/Comments: pneumonia with possible empyema Do you want consulting provider notified?: Yes 11/24/22 07:35 Consult Physician Routine Consulting Provider: Santi White Consult Reason/Comments: Alteplase/dornase infusion Do you want consulting provider notified?: Yes Primary care physician: Bishop Almonte MD Hospital Course: Sepsis with community-acquired pneumonia Empyema COPD with pulmonary hypertension Hypertension Hyperlipidemia Diabetes type 2 Hypothyroidism Bipolar disorder Restless leg syndrome 67 year old woman with history of COPD with pulmonary hypertension, HTN, HLD, DM, hypothyroidism, bipolar disorder, restless leg syndrome presented for evaluation of chest pain. In the emergency room, patient is afebrile, 129/86, heart rate 93, 92% on room air. CBC shows leukocytosis to 17.8, anemia down to 10.7. Chemistries show a sodium of 134, otherwise unremarkable. Liver function tests show an elevated AST at 65, elevated ALT at 120, elevated alkaline phosphatase 159, otherwise unremarkable. Initial troponin was less than 0.012. In fluids A, B, RSV, Covid are all negative. VBG shows a pH of 7.35, pCO2 of 46. Gallbladder ultrasound shows hepatomegaly with hepatic steatosis. CT of the abdomen/pelvis shows small to moderate fat-containing umbilical hernia, moderate to large hiatal hernia involving two thirds of the stomach and lower chest, left-sided colonic diverticulosis with a redundant sigmoid colon. CT of the chest shows left pleural effusion with evidence of loculation, extensive left base consolidation concerning for pneumonia with parapneumonic effusion versus empyema, tree and bud nodularity at the right base. EKG shows sinus rhythm with a normal axis, no evidence of ischemia. The case was discussed with the ER provider, decision was made to admit the patient for sepsis with pneumonia. Patient had received ceftriaxone/azithromycin, metronidazole in the emergency room. Also received a dose of Dilaudid, Toradol, Zofran, and a 1 L fluid bolus while in the ER. Patient was admitted to the medical floor with plans to consult pulmonology for empyema. Patient subsequently underwent pigtail catheter placement with interventional radiology on 11/23. She was treated with ceftriaxone, azithromycin, then azithromycin was discontinued and ceftriaxone continued for duration of hospitalization. She improved daily with PT/OT. Patient's case was discussed with patient's primary care provider, who arranged for transportation [place] [facility] for monitoring and ongoing rehab. She will complete a 12 day course of antibiotics from the date of source control which is 11/23 (pigtail placement date.) This is due to having a complex pneumonia with prolonged illness as well as underlying risk factor of COPD with pulmonary hypertension. I requested that she follow up with pulmonology regarding right upper lobe nodule seen on repeat computed tomography scan on 12/01. I spent 50 minutes coordinating this complex discharge, discharge date 12/01 Gen: in no apparent distress, resting comfortably in bed Eyes: PERRL, no scleral injection or icterus HENT: normocephalic, atraumatic, good hearing acuity, moist mucous membranes Neck: no tracheal deviation, full range of motion Resp: good air exchange, breathing comfortably with no accessory muscle use, no tactile fremitus, diminished breath sounds in the left lower base CVS: good distal perfusion x 4, trace bilateral pitting edema, regular rate and rhythm without appreciable murmurs GI: soft, NTTP, ND, no hepatosplenomegaly : no suprapubic tenderness, no CVAT, [place] catheter not present MSK: no clubbing, no cyanosis, no noted contractures of extremities Skin: no noted rashes, petechiae; temperature of skin is appropriate Neuro: moving all extremities without signs of weakness, CN II-XII intact Psych: cooperative, euthymic mood, insight and judgment intact Patient Condition at Discharge: Good Plan - Discharge Summary Discharge Rx Participant: Yes New Discharge Prescriptions: New Ferrous Sulfate [Iron (65 MG Elemental)] 325 mg PO W/LUNCH #30 tab Cefdinir 300 mg PO Q12HR #8 cap Continue Levothyroxine Sodium [Synthroid] 50 mcg PO DAILY metFORMIN HCL [Glucophage] 500 mg PO BID Atorvastatin [Lipitor] 20 mg PO HS rOPINIRole HCL [Requip] 0.5 mg PO HS lamoTRIgine [LaMICtal] 200 mg PO DAILY [place] Carbonate 600 mg PO DAILY atenoloL 12.5 mg PO DAILY Omeprazole 20 mg PO DAILY Cholecalciferol [Vitamin D3 (25 Mcg = 1000 Iu)] 50 mcg PO DAILY PARoxetine [Paxil] 10 mg PO TID tab Albuterol Sulfate [Ventolin HFA] 2 puff INHALATION RT-QID PRN PRN Reason: Shortness Of Breath Oxybutynin Chloride [Ditropan] 5 mg PO BID Trihexyphenidyl [Artane] 2 mg PO QID Ascorbic Acid [Vitamin C] 500 mg PO DAILY OLANZapine [ZyPREXA] 5 mg PO HS #30 tab Aspirin EC [Ecotrin Low Dose] 81 mg PO DAILY Capsicum Oleoresin [Dermacinrx Circata] 1 applic TOPICAL TID PRN PRN Reason: bilateral knee pain Levocetirizine Dihydrochloride [Xyzal] 5 mg PO DAILY Meloxicam [Mobic] 15 mg PO DAILY Discontinued LORazepam [Ativan] 0.5 mg PO QID PRN PRN Reason: Anxiety Discharge Medication List Levothyroxine Sodium [Synthroid] 50 mcg PO DAILY 06/01/15 [History] metFORMIN HCL [Glucophage] 500 mg PO BID 12/15/17 [History] Atorvastatin [Lipitor] 20 mg PO HS 03/07/18 [History] rOPINIRole HCL [Requip] 0.5 mg PO HS 06/09/18 [History] lamoTRIgine [LaMICtal] 200 mg PO DAILY 04/06/19 [History] [place] Carbonate 600 mg PO DAILY 12/22/20 [History] atenoloL 12.5 mg PO DAILY 12/22/20 [History] Omeprazole 20 mg PO DAILY 01/23/21 [History] Ascorbic Acid [Vitamin C] 500 mg PO DAILY 10/14/22 [History] Cholecalciferol [Vitamin D3 (25 Mcg = 1000 Iu)] 50 mcg PO DAILY 10/14/22 [History] OLANZapine [ZyPREXA] 5 mg PO HS #30 tab 10/20/22 [Rx] PARoxetine [Paxil] 10 mg PO TID tab 10/20/22 [Rx] Albuterol Sulfate [Ventolin HFA] 2 puff INHALATION RT-QID PRN 11/20/22 [History] Aspirin EC [Ecotrin Low Dose] 81 mg PO DAILY 11/20/22 [History] Capsicum Oleoresin [Dermacinrx Circata] 1 applic TOPICAL TID PRN 11/20/22 [History] Levocetirizine Dihydrochloride [Xyzal] 5 mg PO DAILY 11/20/22 [History] Meloxicam [Mobic] 15 mg PO DAILY 11/20/22 [History] Oxybutynin Chloride [Ditropan] 5 mg PO BID 11/20/22 [History] Trihexyphenidyl [Artane] 2 mg PO QID 11/20/22 [History] Cefdinir 300 mg PO Q12HR #8 cap 11/30/22 [Rx] Ferrous Sulfate [Iron (65 MG Elemental)] 325 mg PO W/LUNCH #30 tab 11/30/22 [Rx] Follow up Appointment(s)/Referral(s): Bishop Almonte MD [Primary Care Provider] - 1 Week None,Stated [REFERRING] - 1-2 days Patient Instructions/Handouts: Bacterial Pneumonia (DC) Activity/Diet/Wound Care/Special Instructions: Please see your primary care doctor as soon as possible. Discharge Disposition: HOME WITH HOME HEALTH SERVICES
== END 2022-12-01 17:35 | disposition home health service (06) | DRG 871 ==
LOC: EC 06:33 → 5NMEDONC 10:53
PROVIDERS: ADMIT Internal Medicine; ATTEND Internal Medicine
PROC: 05HF33Z Insertion of Infusion Device into Left Cephalic Vein, Percutaneous Approach (ICD-10-PCS; 2022-11-20)
PROC: 0W9B30Z Drainage of Left Pleural Cavity with Drainage Device, Percutaneous Approach (ICD-10-PCS; principal; 2022-11-23)
PROC: 3E04317 Introduction of Other Thrombolytic into Central Vein, Percutaneous Approach (ICD-10-PCS; 2022-11-25)
DX: A41.50 Gram-negative sepsis, unspecified (principal); J15.6 Pneumonia due to other Gram-negative bacteria; J86.9 Pyothorax without fistula; J91.8 Pleural effusion in other conditions classified elsewhere; Q43.8 Other specified congenital malformations of intestine; I27.21 Secondary pulmonary arterial hypertension; R16.0 Hepatomegaly, not elsewhere classified; F25.9 Schizoaffective disorder, unspecified; E11.42 Type 2 diabetes mellitus with diabetic polyneuropathy; K76.0 Fatty (change of) liver, not elsewhere classified; E03.9 Hypothyroidism, unspecified; G25.81 Restless legs syndrome; F31.9 Bipolar disorder, unspecified; I10 Essential (primary) hypertension; J43.9 Emphysema, unspecified; E66.9 Obesity, unspecified; Z68.33 Body mass index [BMI] 33.0-33.9, adult; D50.9 Iron deficiency anemia, unspecified; G40.909 Epilepsy, unspecified, not intractable, without status epilepticus; Z66 Do not resuscitate; Z53.20 Procedure and treatment not carried out because of patient's decision for unspecified reasons; E78.5 Hyperlipidemia, unspecified; I25.10 Atherosclerotic heart disease of native coronary artery without angina pectoris; G47.33 Obstructive sleep apnea (adult) (pediatric); K44.9 Diaphragmatic hernia without obstruction or gangrene; R91.1 Solitary pulmonary nodule; K42.9 Umbilical hernia without obstruction or gangrene; K57.30 Diverticulosis of large intestine without perforation or abscess without bleeding; G24.01 Drug induced subacute dyskinesia; T43.505A Adverse effect of unspecified antipsychotics and neuroleptics, initial encounter; H35.30 Unspecified macular degeneration; M19.90 Unspecified osteoarthritis, unspecified site; K21.9 Gastro-esophageal reflux disease without esophagitis; R41.3 Other amnesia; F41.9 Anxiety disorder, unspecified; R09.02 Hypoxemia; Z20.822 Contact with and (suspected) exposure to COVID-19; Z79.899 Other long term (current) drug therapy; Z79.890 Hormone replacement therapy; Z79.84 Long term (current) use of oral hypoglycemic drugs; Z79.82 Long term (current) use of aspirin; Z79.1 Long term (current) use of non-steroidal anti-inflammatories (NSAID); Z88.0 Allergy status to penicillin; Z88.5 Allergy status to narcotic agent; Z88.2 Allergy status to sulfonamides; Z88.1 Allergy status to other antibiotic agents; I25.2 Old myocardial infarction; Z28.310 Unvaccinated for COVID-19
CPT/HCPCS: 32551; 36410; 36415; 71045; 71046; 71250; 74177; 76705; 76937; 77012; 78227; 80048; 80053; 82150; 82803; 82945; 83540; 83550; 83605; 83615; 83690; 83735; 84145; 84157; 84466; 84484; 85025; 85027; 85610; 86140; 87040; 87070; 87075; 87102; 87116; 87205; 87206; 87636; 89050; 93005; 96361; 96365; 96375; 99285

== ENCOUNTER 2023-02-15 15:17 | Emergency (ER) | payer MEDICARE ==
[2023-02-15 15:42] VITALS: BP 154/88; PULSE 79; RESP 18; TEMP 98
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
== END 2023-02-15 18:28 | disposition home or self-care (01) ==
LOC: EC 15:17
DX: F03.90 Unspecified dementia, unspecified severity, without behavioral disturbance, psychotic disturbance, mood disturbance, and anxiety (principal); F43.20 Adjustment disorder, unspecified; E11.9 Type 2 diabetes mellitus without complications; K21.9 Gastro-esophageal reflux disease without esophagitis; E78.5 Hyperlipidemia, unspecified; I10 Essential (primary) hypertension; G47.30 Sleep apnea, unspecified; E07.9 Disorder of thyroid, unspecified; M19.90 Unspecified osteoarthritis, unspecified site; F41.9 Anxiety disorder, unspecified; F31.9 Bipolar disorder, unspecified; Z79.890 Hormone replacement therapy; Z79.84 Long term (current) use of oral hypoglycemic drugs; Z79.899 Other long term (current) drug therapy; Z79.1 Long term (current) use of non-steroidal anti-inflammatories (NSAID); Z79.82 Long term (current) use of aspirin; Z88.0 Allergy status to penicillin; Z88.2 Allergy status to sulfonamides; Z88.5 Allergy status to narcotic agent
CPT/HCPCS: 82075; 99285

== ENCOUNTER 2023-02-17 20:13 | Inpatient (IN) | payer MEDICARE ==
[2023-02-17] MEDS ORDERED: SODIUM CHLORIDE 0.9% 1,000 ML IV ONE (20:35)
[2023-02-17 20:51] LABS: Basophils # (A) 0.1 k/uL (0-0.2); Basophils % (A) 1 %; Eosinophils # (A) 0.2 k/uL (0-0.7); Eosinophils % (A) 2 %; HGB 12.6 gm/dL (11.4-16.0); Lymphocytes # (A) 1.9 k/uL (1.0-4.8); Lymphocytes % (A) 18 %; MCH 27.6 pg (25.0-35.0); MCHC 34.2 g/dL (31.0-37.0); MCV 80.8 fL (80.0-100.0); Mean Platelet Volume 6.9; Monocytes # (A) 0.4 k/uL (0-1.0); Monocytes % (A) 4 %; Neutrophils # (A) 7.7 k/uL (1.3-7.7); Neutrophils % (A) 73 %; Platelet Count 296 k/uL (150-450); RBC 4.58 m/uL (3.80-5.40); RDW 15.8 % (11.5-15.5); WBC 10.5 k/uL (3.8-10.6)
[2023-02-17 21:02] LABS: ALT 19 U/L (4-34); AST 18 U/L (14-36); African American GFR (CKD) 61 (>60 ml/min/1.73 sqM); Albumin 4.4 g/dL (3.5-5.0); Alcohol <10 mg/dL; Alkaline Phosphatase 96 U/L (38-126); Anion Gap 11 mmol/L; Blood Urea Nitrogen 22 mg/dL (7-17); Calcium 9.6 mg/dL (8.4-10.2); Carbon Dioxide 25 mmol/L (22-30); Chloride 102 mmol/L (98-107); Glucose 91 mg/dL (74-99); Non-African American GFR(CKD) 53 (>60 ml/min/1.73 sqM); Potassium 4.1 mmol/L (3.5-5.1); Sodium 138 mmol/L (137-145); Total Bilirubin 0.5 mg/dL (0.2-1.3); Total Protein 6.9 g/dL (6.3-8.2)
[2023-02-17 21:06] LABS: Glucose,Whole Blood 95 mg/dL (70-110)
[2023-02-17 21:29] LABS: Prothrombin Time 10.4 sec (9.0-12.0)
[2023-02-17 21:46] LABS: Partial Thromboplastin Time 18.8 sec (22.0-30.0)
--- NOTE | 2023-02-17 21:50 | XR ---
EXAMINATION TYPE: XR chest 2V DATE OF EXAM: 02/17/2023 COMPARISON: 11/30/2022 TECHNIQUE: PA and lateral views submitted. HISTORY: Shortness of breath FINDINGS: Left basilar consolidation with no pneumothorax or pleural effusion. Heart size prominent. There is a retrocardiac density which may represent a hiatal hernia. Coarsened interstitium is more suggestive of chronic interstitial lung disease.. Osseous structures demonstrate hypertrophic and degenerative changes of the spine. IMPRESSION: 1. No acute process. Retrocardiac density is more typical of hiatal hernia as reported by previous CT exam. Suspect persistent left basilar atelectasis or infiltrate.
[2023-02-17 22:01] LABS: Appearance,Urine Cloudy (Clear); Bacteria,Urine Many /hpf; Bilirubin,Urine Negative (Negative); Blood,Urine Negative (Negative); Color,Urine Yellow; Glucose,Urine (UA) Negative (Negative); Hyaline Casts,Urine 3 /lpf (0-2); Ketones,Urine Negative (Negative); Leukocyte Esterase,Urine Moderate (Negative); Mucus,Urine Rare /hpf; Nitrite,Urine Positive (Negative); Protein,Urine Negative (Negative); RBC,Urine 4 /hpf (0-5); Specific Gravity,Urine 1.016 (1.001-1.035); Squamous Epithelial Cell,Urine <1 /hpf (0-4); Urobilinogen,Urine <2.0 mg/dL (<2.0); WBC,Urine 43 /hpf (0-5)
--- NOTE | 2023-02-17 22:09 | ED ---
Altered Mental Status HPI - General Chief Complaint: Altered Mental Status Stated Complaint: AMS Time Seen by Provider: 02/17/23 20:21 Source: patient, EMS, RN notes reviewed Mode of arrival: EMS Limitations: altered mental status - History of Present Illness Initial Comments: This a 67-year-old female presents emergency Department from [facility] for evaluation. We did receive a call stating patient needed further workup the patient has been acutely psychotic. Patient is not forthcoming on any information is helpful at this time. Patient does have multiple ISSUES including reports of hypertension and diabetes. Patient does not provide any co mplaints of pain anywhere information is very limited. - Related Data Home Medications Medication Instructions Recorded Confirmed Levothyroxine Sodium [Synthroid] 50 mcg PO DAILY 06/01/15 11/20/22 metFORMIN HCL [Glucophage] 500 mg PO BID 12/15/17 11/20/22 Atorvastatin [Lipitor] 20 mg PO HS 03/07/18 11/20/22 rOPINIRole HCL [Requip] 0.5 mg PO HS 06/09/18 11/20/22 lamoTRIgine [LaMICtal] 200 mg PO DAILY 04/06/19 11/20/22 [place] Carbonate 600 mg PO DAILY 12/22/20 11/20/22 atenoloL 12.5 mg PO DAILY 12/22/20 11/20/22 Omeprazole 20 mg PO DAILY 01/23/21 11/20/22 Ascorbic Acid [Vitamin C] 500 mg PO DAILY 10/14/22 11/20/22 Cholecalciferol [Vitamin D3 (25 50 mcg PO DAILY 10/14/22 11/20/22 Mcg = 1000 Iu)] Albuterol Sulfate [Ventolin HFA] 2 puff INHALATION RT-QID PRN 11/20/22 11/20/22 Aspirin EC [Ecotrin Low Dose] 81 mg PO DAILY 11/20/22 11/20/22 Capsicum Oleoresin [Dermacinrx 1 applic TOPICAL TID PRN 11/20/22 11/20/22 Circata] Levocetirizine Dihydrochloride 5 mg PO DAILY 11/20/22 11/20/22 [Xyzal] Meloxicam [Mobic] 15 mg PO DAILY 11/20/22 11/20/22 Oxybutynin Chloride [Ditropan] 5 mg PO BID 11/20/22 11/20/22 Trihexyphenidyl [Artane] 2 mg PO QID 11/20/22 11/20/22 Previous Rx's Medication Instructions Recorded OLANZapine [ZyPREXA] 5 mg PO HS #30 tab 10/20/22 PARoxetine [Paxil] 10 mg PO TID tab 10/20/22 Cefdinir 300 mg PO Q12HR #8 cap 11/30/22 Ferrous Sulfate [Iron (65 MG 325 mg PO W/LUNCH #30 tab 11/30/22 Elemental)] Allergies Allergy/AdvReac Type Severity Reaction Status Date / Time amoxicillin Allergy Rash/Hives Verified 02/17/23 20:22 codeine Allergy Unknown Verified 02/17/23 20:22 Sulfa (Sulfonamide Allergy Unknown Verified 02/17/23 20:22 Antibiotics) sulfamethoxazole Allergy Rash/Hives Verified 02/17/23 20:22 [From Bactrim] thioridazine [From Mellaril] Allergy Unknown Verified 02/17/23 20:22 trimethoprim [From Bactrim] Allergy Rash/Hives Verified 02/17/23 20:22 Review of Systems ROS Statement: Those systems with pertinent positive or pertinent negative responses have been documented in the HPI. ROS Other: All systems not noted in ROS Statement are negative. Past Medical History Past Medical History: Chest Pain / Angina, Diabetes Mellitus, Eye Disorder, GERD/Reflux, Hyperlipidemia, Hypertension, Memory Impairment, Osteoarthritis (OA), Seizure Disorder, Sleep Apnea/CPAP/BIPAP, Thyroid Disorder Additional Past Medical History / Comment(s): NIDDM type II, neuropathy bilateral legs/feet, BETINA/does not use CPAP device, short term memory issues, past seizure many years ago associated with a medication, hypothyroid, sinus issues, varicose vein, stress incontinence/urgency, frequent UTIs, RLS, lightheaded/dizzy when rising at times, bilateral eye macular degeneration, hypoothyroid. Last Myocardial Infarction Date:: 2016 History of Any Multi-Drug Resistant Organisms: None Reported Past Surgical History: Section Additional Past Surgical History / Comment(s): D&C with hysteroscopy/colposcopy, surgery for deviated septum, history of EGD secondary to GERD Past Anesthesia/Blood Transfusion Reactions: Motion Sickness Past Psychological History: Anxiety, Bipolar, Depression, Schizoaffective Disorder Smoking Status: Never smoker Past Alcohol Use History: None Reported Past Drug Use History: None Reported - Past Family History Father Family Medical History: CVA/TIA Additional Family Medical History / Comment(s): SMOKED AND ABUSED ETOH- AGE 78- FROM STROKE Mother Additional Family Medical History / Comment(s): CRONIC BRONCHITIS.REMOVED PART OF ONE LUNG d/t the bronchitis infection General Exam Limitations: altered mental status General appearance: alert, in no apparent distress Head exam: Present: atraumatic, normocephalic, normal inspection Eye exam: Present: normal appearance, PERRL, EOMI. Absent: scleral icterus, conjunctival injection, periorbital swelling ENT exam: Present: mucous membranes dry. Absent: normal exam, normal oropharynx, mucous membranes moist Neck exam: Present: normal inspection. Absent: tenderness, meningismus, lymphadenopathy Respiratory exam: Present: normal lung sounds bilaterally. Absent: respiratory distress, wheezes, rales, rhonchi, stridor Cardiovascular Exam: Present: regular rate, normal rhythm, normal heart sounds. Absent: systolic murmur, diastolic murmur, rubs, gallop, clicks GI/Abdominal exam: Present: soft, normal bowel sounds. Absent: distended, tenderness, guarding, rebound, rigid Course Vital Signs 02/17/23 02/17/23 20:15 21:53 Temperature 97.6 F Pulse Rate 68 65 Respiratory 16 18 Rate Blood Pressure 120/64 123/72 O2 Sat by Pulse 94 L 96 Oximetry Medical Decision Making - Medical Decision Making Was pt. sent in by a medical professional or institution (, PA, COMMERCIAL RELATIONSHIP MANAGER, urgent care, hospital, or longterm...) When possible be specific @ -No Did you speak to anyone other than the patient for history (EMS, parent, family, police, friend...)? What history was obtained from this source @ -No Did you review nursing and triage notes (agree or disagree)? Why? @ -I reviewed and agree with nursing and triage notes Were old charts reviewed (outside hosp., previous admission, EMS record, old EKG, old radiological studies, urgent care reports/EKG's, longterm records)? Report findings @ -Reviewed psychiatric evaluation 2 days ago. Recommended patient to be discharged patient does have history of schizophrenia Differential Diagnosis (chest pain, altered mental status, abdominal pain women, abdominal pain men, vaginal bleeding, weakness, fever, dyspnea, syncope, headache, dizziness, GI bleed, back pain, seizure, CVA, palpatations, mental health, musculoskeletal)? @ -Differential Altered Mental Status: Hypoglycemia, DKA, hypercapnia, ETOH, overdose, CO poisoning, trauma, myxedema coma, HTN encephalopathy, infection, encephalitis, psychosis, intercranial hemorrhage, hepatic encephalopathy, meningitis, CVA, this is not meant to be an all-inclusive list EKG interpreted by me (3pts min.). @ -As above X-rays interpreted by me (1pt min.). @ -Chest x-ray shows no acute process CT interpreted by me (1pt min.). @ -None done U/S interpreted by me (1pt. min.). @ -None done What testing was considered but not performed or refused? (CT, X-rays, U/S, labs)? Why? @ -None What meds were considered but not given or refused? Why? @ -None Did you discuss the management of the patient with other professionals (professionals i.e. , PA, COMMERCIAL RELATIONSHIP MANAGER, lab, RT, psych nurse, director social welfare, dip filler, teacher, learning officer, registered nurse hh case manager)? Give summary @ -Dr. Mckeon who reviewed laboratory studies, prior records including ps ychiatric consult and prior admission recommended patient to be admitted and IV antibiotics. There was a urine culture showing VRE, antibiotic therapy will be further evaluated Was smoking cessation discussed for >3mins.? @ -No Was critical care preformed (if so, how long)? @ -No Were there social determinants of health that impacted care today? How? (Homelessness, low income, unemployed, alcoholism, drug addiction, transportation, low edu. Level, literacy, decrease access to med. care, half-way, rehab)? @ -No Was there de-escalation of care discussed even if they declined (Discuss DNR or withdrawal of care, Hospice)? DNR status @ -No What co-morbidities impacted this encounter? (DM, HTN, Smoking, COPD, CAD, Cancer, CVA, ARF, Chemo, Hep., AIDS, mental health diagnosis, sleep apnea, morbid obesity)? @ -Hypertension, hyperlipidemia, diabetes, schizophrenia Was patient admitted / discharged? Hospital course, mention meds given and route, prescriptions, significant lab abnormalities, going to OR and other pertinent info. @ -hospital course Undiagnosed new problem with uncertain prognosis? @ -No Drug Therapy requiring intensive monitoring for toxicity (Heparin, Nitro, Insulin, Cardizem)? @ -No Were any procedures done? @ -No Diagnosis/symptom? @ -UTI, acute psychosis Acute, or Chronic, or Acute on Chronic? @ -Acute Uncomplicated (without systemic symptoms) or Complicated (systemic symptoms)? @ -default Side effects of treatment? @ -No Exacerbation, Progression, or Severe Exacerbation? @ -No Poses a threat to life or bodily function? How? (Chest pain, [place], [place], pneumonia, PE, COPD, DKA, ARF, appy, cholecystitis, CVA, Diverticulitis, Homicidal, Suicidal, threat to staff... and all critical care pts) @ -No - Lab Data Result diagrams: 02/17/23 20:35 02/17/23 20:35 Lab Results 02/17/23 02/17/23 02/17/23 Range/Units 20:35 20:35 20:35 WBC 10.5 (3.8-10.6) k/uL RBC 4.58 (3.80-5.40) m/uL Hgb 12.6 (11.4-16.0) gm/dL Hct 37.0 (34.0-46.0) % MCV 80.8 (80.0-100.0) fL MCH 27.6 (25.0-35.0) pg MCHC 34.2 (31.0-37.0) g/dL RDW 15.8 H (11.5-15.5) % Plt Count 296 (150-450) k/uL MPV 6.9 Neutrophils % 73 % Lymphocytes % 18 % Monocytes % 4 % Eosinophils % 2 % Basophils % 1 % Neutrophils # 7.7 (1.3-7.7) k/uL Lymphocytes # 1.9 (1.0-4.8) k/uL Monocytes # 0.4 (0-1.0) k/uL Eosinophils # 0.2 (0-0.7) k/uL Basophils # 0.1 (0-0.2) k/uL PT 10.4 (9.0-12.0) sec INR 1.0 (<1.2) APTT 18.8 L (22.0-30.0) sec Sodium 138 (137-145) mmol/L Potassium 4.1 (3.5-5.1) mmol/L Chloride 102 (98-107) mmol/L Carbon Dioxide 25 (22-30) mmol/L Anion Gap 11 mmol/L BUN 22 H (7-17) mg/dL Creatinine 1.10 H (0.52-1.04) mg/dL Est GFR (CKD-EPI)AfAm 61 (>60 ml/min/1.73 sqM) Est GFR (CKD-EPI)NonAf 53 (>60 ml/min/1.73 sqM) Glucose 91 (74-99) mg/dL POC Glucose (mg/dL) (70-110) mg/dL POC Glu Mortar Worker ID Calcium 9.6 (8.4-10.2) mg/dL Total Bilirubin 0.5 (0.2-1.3) mg/dL AST 18 (14-36) U/L ALT 19 (4-34) U/L Alkaline Phosphatase 96 (38-126) U/L Ammonia (<30) umol/L Troponin I (0.000-0.034) ng/mL Total Protein 6.9 (6.3-8.2) g/dL Albumin 4.4 (3.5-5.0) g/dL Urine Color Urine Appearance (Clear) Urine pH (5.0-8.0) Ur Specific [place] (1.001-1.035) Urine Protein (Negative) Urine Glucose (UA) (Negative) Urine Ketones (Negative) Urine Blood (Negative) Urine Nitrite (Negative) Urine Bilirubin (Negative) Urine Urobilinogen (<2.0) mg/dL Ur Leukocyte Esterase (Negative) Urine RBC (0-5) /hpf Urine WBC (0-5) /hpf Ur Squamous Epith Cells (0-4) /hpf Urine Bacteria (None) /hpf Hyaline Casts (0-2) /lpf Urine Mucus (None) /hpf Urine Opiates Screen (NotDetected) Ur Oxycodone Screen (NotDetected) Urine Methadone Screen (NotDetected) Ur Propoxyphene Screen (NotDetected) Ur Barbiturates Screen (NotDetected) U Tricyclic Antidepress (NotDetected) Ur Phencyclidine Scrn (NotDetected) Ur Amphetamines Screen (NotDetected) U Methamphetamines Scrn (NotDetected) U Benzodiazepines Scrn (NotDetected) Urine Cocaine Screen (NotDetected) U Marijuana (THC) Screen (NotDetected) Serum Alcohol <10 mg/dL 02/17/23 02/17/23 02/17/23 Range/Units 20:35 21:04 21:30 WBC (3.8-10.6) k/uL RBC (3.80-5.40) m/uL Hgb (11.4-16.0) gm/dL Hct (34.0-46.0) % MCV (80.0-100.0) fL MCH (25.0-35.0) pg MCHC (31.0-37.0) g/dL RDW (11.5-15.5) % Plt Count (150-450) k/uL MPV Neutrophils % % Lymphocytes % % Monocytes % % Eosinophils % % Basophils % % Neutrophils # (1.3-7.7) k/uL Lymphocytes # (1.0-4.8) k/uL Monocytes # (0-1.0) k/uL Eosinophils # (0-0.7) k/uL Basophils # (0-0.2) k/uL PT (9.0-12.0) sec INR (<1.2) APTT (22.0-30.0) sec Sodium (137-145) mmol/L Potassium (3.5-5.1) mmol/L Chloride (98-107) mmol/L Carbon Dioxide (22-30) mmol/L Anion Gap mmol/L BUN (7-17) mg/dL Creatinine (0.52-1.04) mg/dL Est GFR (CKD-EPI)AfAm (>60 ml/min/1.73 sqM) Est GFR (CKD-EPI)NonAf (>60 ml/min/1.73 sqM) Glucose (74-99) mg/dL POC Glucose (mg/dL) 95 (70-110) mg/dL POC Glu Mortar Worker ID Keyonna Sibley Calcium (8.4-10.2) mg/dL Total Bilirubin (0.2-1.3) mg/dL AST (14-36) U/L ALT (4-34) U/L Alkaline Phosphatase (38-126) U/L Ammonia <9 (<30) umol/L Troponin I <0.012 (0.000-0.034) ng/mL Total Protein (6.3-8.2) g/dL Albumin (3.5-5.0) g/dL Urine Color Urine Appearance (Clear) Urine pH (5.0-8.0) Ur Specific [place] (1.001-1.035) Urine Protein (Negative) Urine Glucose (UA) (Negative) Urine Ketones (Negative) Urine Blood (Negative) Urine Nitrite (Negative) Urine Bilirubin (Negative) Urine Urobilinogen (<2.0) mg/dL Ur Leukocyte Esterase (Negative) Urine RBC (0-5) /hpf Urine WBC (0-5) /hpf Ur Squamous Epith Cells (0-4) /hpf Urine Bacteria (None) /hpf Hyaline Casts (0-2) /lpf Urine Mucus (None) /hpf Urine Opiates Screen (NotDetected) Ur Oxycodone Screen (NotDetected) Urine Methadone Screen (NotDetected) Ur Propoxyphene Screen (NotDetected) Ur Barbiturates Screen (NotDetected) U Tricyclic Antidepress (NotDetected) Ur Phencyclidine Scrn (NotDetected) Ur Amphetamines Screen (NotDetected) U Methamphetamines Scrn (NotDetected) U Benzodiazepines Scrn (NotDetected) Urine Cocaine Screen (NotDetected) U Marijuana (THC) Screen (NotDetected) Serum Alcohol mg/dL 02/17/23 02/17/23 Range/Units 21:40 21:40 WBC (3.8-10.6) k/uL RBC (3.80-5.40) m/uL Hgb (11.4-16.0) gm/dL Hct (34.0-46.0) % MCV (80.0-100.0) fL MCH (25.0-35.0) pg MCHC (31.0-37.0) g/dL RDW (11.5-15.5) % Plt Count (150-450) k/uL MPV Neutrophils % % Lymphocytes % % Monocytes % % Eosinophils % % Basophils % % Neutrophils # (1.3-7.7) k/uL Lymphocytes # (1.0-4.8) k/uL Monocytes # (0-1.0) k/uL Eosinophils # (0-0.7) k/uL Basophils # (0-0.2) k/uL PT (9.0-12.0) sec INR (<1.2) APTT (22.0-30.0) sec Sodium (137-145) mmol/L Potassium (3.5-5.1) mmol/L Chloride (98-107) mmol/L Carbon Dioxide (22-30) mmol/L Anion Gap mmol/L BUN (7-17) mg/dL Creatinine (0.52-1.04) mg/dL Est GFR (CKD-EPI)AfAm (>60 ml/min/1.73 sqM) Est GFR (CKD-EPI)NonAf (>60 ml/min/1.73 sqM) Glucose (74-99) mg/dL POC Glucose (mg/dL) (70-110) mg/dL POC Glu Mortar Worker ID Calcium (8.4-10.2) mg/dL Total Bilirubin (0.2-1.3) mg/dL AST (14-36) U/L ALT (4-34) U/L Alkaline Phosphatase (38-126) U/L Ammonia (<30) umol/L Troponin I (0.000-0.034) ng/mL Total Protein (6.3-8.2) g/dL Albumin (3.5-5.0) g/dL Urine Color Yellow Urine Appearance Cloudy H (Clear) Urine pH 6.0 (5.0-8.0) Ur Specific [place] 1.016 (1.001-1.035) Urine Protein Negative (Negative) Urine Glucose (UA) Negative (Negative) Urine Ketones Negative (Negative) Urine Blood Negative (Negative) Urine Nitrite Positive H (Negative) Urine Bilirubin Negative (Negative) Urine Urobilinogen <2.0 (<2.0) mg/dL Ur Leukocyte Esterase Moderate H (Negative) Urine RBC 4 (0-5) /hpf Urine WBC 43 H (0-5) /hpf Ur Squamous Epith Cells <1 (0-4) /hpf Urine Bacteria Many H (None) /hpf Hyaline Casts 3 H (0-2) /lpf Urine Mucus Rare H (None) /hpf Urine Opiates Screen Not Detected (NotDetected) Ur Oxycodone Screen Not Detected (NotDetected) Urine Methadone Screen Not Detected (NotDetected) Ur Propoxyphene Screen Not Detected (NotDetected) Ur Barbiturates Screen Not Detected (NotDetected) U Tricyclic Antidepress Not Detected (NotDetected) Ur Phencyclidine Scrn Not Detected (NotDetected) Ur Amphetamines Screen Not Detected (NotDetected) U Methamphetamines Scrn Not Detected (NotDetected) U Benzodiazepines Scrn Detected H (NotDetected) Urine Cocaine Screen Not Detected (NotDetected) U Marijuana (THC) Screen Not Detected (NotDetected) Serum Alcohol mg/dL Disposition Clinical Impression: UTI (urinary tract infection), Acute psychosis, Schizoaffective disorder, Altered mental status Disposition: ADMITTED IP TO THIS [facility] Condition: Poor Referrals: None,Stated [Primary Care Provider] - 1-2 days Time of Disposition: 22:38
[2023-02-17 22:20] LABS: Amphetamine Screen,Urine Not Detected (NotDetected); Barbiturate Screen,Urine Not Detected (NotDetected); Benzodiazepines Screen,Urine Detected (NotDetected); Cocaine Screen,Urine Not Detected (NotDetected); Methadone Screen, Urine Not Detected (NotDetected); Opiate Screen,Urine Not Detected (NotDetected); Oxycodone Screen, Urine Not Detected (NotDetected); Phencyclidine Screen,Urine Not Detected (NotDetected); Tricyclic Antidepressant,Urine Not Detected (NotDetected); Urn Cannabinoid Scrn Not Detected (NotDetected)
[2023-02-17] MEDS ORDERED: NALOXONE 0.4 MG/ML 1 ML VIAL IV PRN (22:39)
[2023-02-17] MEDS ORDERED: ACETAMINOPHEN TAB 325 MG TAB PO PRN (22:39)
--- NOTE | 2023-02-18 03:08 | P.HPIM ---
History of Present Illness H&P Date: 02/17/23 The patient is a 67-year-old female with a PMH of type II DM, hypertension, hyperlipidemia, hypothyroidism, schizophrenia, and COPD with pulmonary hypertension, who was sent from [facility] for altered mental status and multiple falls. Upon initial presentation to the emergency room, the patient was very confused but her mentation gradually improved. The patient states that she has not been feeling quite like herself over the past few days. She reports that her urine has been darker than usual. She also states that she hasn't been eating or drinking as much over the past few days. She denied any additional complaints. Denied experiencing dysuria, urinary urgency, chest discomfort, shortness of breath, nausea, vomiting, abdominal pain, diarrhea. Chest x-ray in the emergency room a persistent left basilar infiltrate versus atelectasis. EKG revealed sinus rhythm at 64 bpm with flattened T waves diffusely. Laboratory evaluation revealed WBC count of 10.5, hemoglobin 12.6, platelets 296, sodium 138, potassium 4.1, chloride 102, BUN 22, creatinine 1.10, troponin less than 0.012, and UA consistent with UTI. Of note, the patient previously had a urine culture from 12/31 which grew VRE. ED documentation reviewed and case discussed with ED provider. Review of systems: Pertinent positives and negatives as discussed in HPI, a complete review of systems was performed and all other systems are negative. Physical examination: Vital signs reviewed General: non toxic, no distress, appears at stated age, overweight Derm: no unusual rashes/lesions, warm Head: atraumatic, normocephalic, symmetric Eyes: EOMI, no lid lag, anicteric sclera, pupils equal round reactive to light ENT: Nose and ears atraumatic Neck: No cervical lymphadenopathy, trachea midline, supple Mouth: no lip lesion, mucus membranes very dry Cardiovascular: S1S2 reg, no murmur, positive dorsalis pedis pulse bilateral, no edema Lungs: CTA bilateral, no rhonchi, no rales, no accessory muscle use Abdominal: soft, nontender to palpation, no guarding Ext: muscle strength 5 out of 5 in all 4 extremities grossly, no gross muscle atrophy, no contractures, Neuro: CN II-XI grossly intact, no gross focal neuro deficits Psych: Alert, oriented to person and place, not oriented to time, appropriate affect Assessment: Altered mental status, likely secondary to UTI with component of schizophrenia and psychosis LOC secondary to dehydration from poor oral intake Chronic conditions: COPD, Type 2 DM, HTN, HLD, Hypothyroidism Imaging: Chest x-ray in the emergency room a persistent left basilar infiltrate versus atelectasis. EKG revealed sinus rhythm at 64 bpm with flattened T waves diffusely. Data Review: Laboratory evaluation revealed WBC count of 10.5, hemoglobin 12.6, platelets 296, sodium 138, potassium 4.1, chloride 102, BUN 22, creatinine 1.10, troponin less than 0.012, and UA consistent with UTI. Plan: Continue patient on Ceftriaxone 2g q24h for now (previous culture showing VRE) as patient showing clinical improvement C/w IVFs NS 75 mL/hr Psychiatry consulted Follow-up blood and urine cultures Fall precautions Resume home medications once reconciled DVT prophylaxis: Lovenox subcu The patient is admitted with an anticipated greater than 2 midnight stay for evaluation of AMS CODE STATUS: Full Code Discussed with: Patient Anticipated discharge place: [facility] Past Medical History Past Medical History: Chest Pain / Angina, Diabetes Mellitus, Eye Disorder, GERD/Reflux, Hyperlipidemia, Hypertension, Memory Impairment, Osteoarthritis (OA), Seizure Disorder, Sleep Apnea/CPAP/BIPAP, Thyroid Disorder Additional Past Medical History / Comment(s): NIDDM type II, neuropathy bilateral legs/feet, BETINA/does not use CPAP device, short term memory issues, past seizure many years ago associated with a medication, hypothyroid, sinus issues, varicose vein, stress incontinence/urgency, frequent UTIs, RLS, lightheaded/dizzy when rising at times, bilateral eye macular degeneration, hypoothyroid. Last Myocardial Infarction Date:: 2016 History of Any Multi-Drug Resistant Organisms: None Reported Past Surgical History: Section Additional Past Surgical History / Comment(s): D&C with hysteroscopy/colposcopy, surgery for deviated septum, history of EGD secondary to GERD Past Anesthesia/Blood Transfusion Reactions: Motion Sickness Past Psychological History: Anxiety, Bipolar, Depression, Schizoaffective Disorder Smoking Status: Never smoker Past Alcohol Use History: None Reported Past Drug Use History: None Reported - Past Family History Father Family Medical History: CVA/TIA Additional Family Medical History / Comment(s): SMOKED AND ABUSED ETOH- AGE 78- FROM STROKE Mother Additional Family Medical History / Comment(s): CRONIC BRONCHITIS.REMOVED PART OF ONE LUNG d/t the bronchitis infection Medications and Allergies Home Medications Medication Instructions Recorded Confirmed Type Levothyroxine Sodium [Synthroid] 50 mcg PO DAILY 06/01/15 11/20/22 History metFORMIN HCL [Glucophage] 500 mg PO BID 12/15/17 11/20/22 History Atorvastatin [Lipitor] 20 mg PO HS 03/07/18 11/20/22 History rOPINIRole HCL [Requip] 0.5 mg PO HS 06/09/18 11/20/22 History lamoTRIgine [LaMICtal] 200 mg PO DAILY 04/06/19 11/20/22 History [place] Carbonate 600 mg PO DAILY 12/22/20 11/20/22 History atenoloL 12.5 mg PO DAILY 12/22/20 11/20/22 History Omeprazole 20 mg PO DAILY 01/23/21 11/20/22 History Ascorbic Acid [Vitamin C] 500 mg PO DAILY 10/14/22 11/20/22 History Cholecalciferol [Vitamin D3 (25 50 mcg PO DAILY 10/14/22 11/20/22 History Mcg = 1000 Iu)] OLANZapine [ZyPREXA] 5 mg PO HS #30 tab 10/20/22 11/20/22 Rx PARoxetine [Paxil] 10 mg PO TID tab 10/20/22 11/20/22 Rx Albuterol Sulfate [Ventolin HFA] 2 puff INHALATION RT-QID PRN 11/20/22 11/20/22 History Aspirin EC [Ecotrin Low Dose] 81 mg PO DAILY 11/20/22 11/20/22 History Capsicum Oleoresin [Dermacinrx 1 applic TOPICAL TID PRN 11/20/22 11/20/22 History Circata] Levocetirizine Dihydrochloride 5 mg PO DAILY 11/20/22 11/20/22 History [Xyzal] Meloxicam [Mobic] 15 mg PO DAILY 11/20/22 11/20/22 History Oxybutynin Chloride [Ditropan] 5 mg PO BID 11/20/22 11/20/22 History Trihexyphenidyl [Artane] 2 mg PO QID 11/20/22 11/20/22 History Cefdinir 300 mg PO Q12HR #8 cap 11/30/22 Rx Ferrous Sulfate [Iron (65 MG 325 mg PO W/LUNCH #30 tab 11/30/22 Rx Elemental)] Allergies Allergy/AdvReac Type Severity Reaction Status Date / Time amoxicillin Allergy Rash/Hives Verified 02/17/23 20:22 codeine Allergy Unknown Verified 02/17/23 20:22 Sulfa (Sulfonamide Allergy Unknown Verified 02/17/23 20:22 Antibiotics) sulfamethoxazole Allergy Rash/Hives Verified 02/17/23 20:22 [From Bactrim] thioridazine [From Mellaril] Allergy Unknown Verified 02/17/23 20:22 trimethoprim [From Bactrim] Allergy Rash/Hives Verified 02/17/23 20:22 Physical Exam Vitals: Vital Signs Temp Pulse Resp BP Pulse Ox 02/17/23 21:53 65 18 123/72 96 02/17/23 20:15 97.6 F 68 16 120/64 94 L Intake and Output 02/17/23 02/17/23 02/18/23 14:59 22:59 06:59 Other: Weight 77.111 kg Results CBC & Chem 7: 02/17/23 20:35 02/17/23 20:35 Labs: Abnormal Lab Results - Last 24 Hours (Table) 02/17/23 02/17/23 02/17/23 Range/Units 20:35 20:35 20:35 RDW 15.8 H (11.5-15.5) % APTT 18.8 L (22.0-30.0) sec BUN 22 H (7-17) mg/dL Creatinine 1.10 H (0.52-1.04) mg/dL Urine Appearance (Clear) Urine Nitrite (Negative) Ur Leukocyte Esterase (Negative) Urine WBC (0-5) /hpf Urine Bacteria (None) /hpf Hyaline Casts (0-2) /lpf Urine Mucus (None) /hpf U Benzodiazepines Scrn (NotDetected) 02/17/23 02/17/23 Range/Units 21:40 21:40 RDW (11.5-15.5) % APTT (22.0-30.0) sec BUN (7-17) mg/dL Creatinine (0.52-1.04) mg/dL Urine Appearance Cloudy H (Clear) Urine Nitrite Positive H (Negative) Ur Leukocyte Esterase Moderate H (Negative) Urine WBC 43 H (0-5) /hpf Urine Bacteria Many H (None) /hpf Hyaline Casts 3 H (0-2) /lpf Urine Mucus Rare H (None) /hpf U Benzodiazepines Scrn Detected H (NotDetected)
[2023-02-18] MEDS: SODIUM CHLORIDE 0.9% 1,000 ML IV SCH ×3 (08:08→22:29)
[2023-02-18] MEDS: ENOXAPARIN 40 MG/0.4 ML SYRINGE SQ SCH (08:52)
--- NOTE | 2023-02-18 12:59 | P.PN ---
Subjective Progress Note Date: 02/18/23 Hospital Course: 67-year-old female with a PMH of type II DM, hypertension, hyperlipidemia, hypothyroidism, schizophrenia, and COPD with pulmonary hypertension, who was sent from [facility] for altered mental status and multiple falls. Chest x-ray in the emergency room a persistent left basilar infiltrate versus atelectasis. EKG revealed sinus rhythm at 64 bpm with flattened T waves diffusely. Laboratory evaluation revealed WBC count of 10.5, hemoglobin 12.6, platelets 296, sodium 138, potassium 4.1, chloride 102, BUN 22, creatinine 1.10, troponin less than 0.012, and UA consistent with UTI. Of note, the patient previously had a urine culture from 12/31 which grew VRE Subjective: HEENT and examined at bedside. No acute events overnight. Complaining of mild suprapubic pain. Denies any chest pain, shortness of breath, urinary or bowel complaints. Pertinent positives and negatives as discussed above, a complete review of systems was performed and all other systems are negative. Vitals Signs Reviewed. General: nontoxic, no distress, appears at stated age Derm: warm, dry Head: atraumatic, normocephalic, symmetric Eyes: EOMI, no lid lag, anicteric sclera Mouth: no lip lesion, mucus membranes moist Cardiovascular: S1S2 reg, no murmur Lungs: CTA bilateral, no rhonchi, no rales , no accessory muscle use Abdominal: soft, nontender to palpation, no guarding, no appreciable organomegaly Ext: no gross muscle atrophy, no edema, no contractures Neuro: CN II-XI grossly intact, no focal neuro deficits Psych: Alert, oriented 2, appropriate affect Data Reviewed Today: Pertinent Labs: Urine toxicology positive for benzo, ammonia negative Assessment and Plan: Active: Acute metabolic encephalopathy, UTI History of psychosis and schizophrenia Bipolar disorder on lithium LOC secondary to dehydration from poor oral intake -Mental status still not at baseline -Altered mentation likely in the setting of UTI, versus polypharmacy -Holding oxybutynin -Continue IV ceftriaxone 2 g every 24 hours, urine culture ordered, previously grown VRE -Continue IV fluids at 75 mL normal saline an hour -Holding meloxicam -Repeat BMP pending tomorrow -[place] level ordered Chronic: COPD, Type 2 DM, HTN, HLD, Hypothyroidism DVT ppx: Lovenox Code status: Full code Anticipated discharge place: Pending clinical course Anticipated discharge time: Pending clinical course Objective - Vital Signs Vital signs: Vital Signs Temp 97.3 F L 02/18/23 07:30 Pulse 70 02/18/23 07:30 Resp 18 02/18/23 07:30 BP 132/82 02/18/23 07:30 Pulse Ox 93 L 02/18/23 09:34 FiO2 Intake & Output 02/17/23 02/18/23 02/18/23 18:59 06:59 18:59 Weight 77.111 kg - Labs CBC & Chem 7: 02/17/23 20:35 02/17/23 20:35 Labs: Abnormal Lab Results - Last 24 Hours (Table) 02/17/23 02/17/23 02/17/23 Range/Units 20:35 20:35 20:35 RDW 15.8 H (11.5-15.5) % APTT 18.8 L (22.0-30.0) sec BUN 22 H (7-17) mg/dL Creatinine 1.10 H (0.52-1.04) mg/dL Urine Appearance (Clear) Urine Nitrite (Negative) Ur Leukocyte Esterase (Negative) Urine WBC (0-5) /hpf Urine Bacteria (None) /hpf Hyaline Casts (0-2) /lpf Urine Mucus (None) /hpf U Benzodiazepines Scrn (NotDetected) 02/17/23 02/17/23 Range/Units 21:40 21:40 RDW (11.5-15.5) % APTT (22.0-30.0) sec BUN (7-17) mg/dL Creatinine (0.52-1.04) mg/dL Urine Appearance Cloudy H (Clear) Urine Nitrite Positive H (Negative) Ur Leukocyte Esterase Moderate H (Negative) Urine WBC 43 H (0-5) /hpf Urine Bacteria Many H (None) /hpf Hyaline Casts 3 H (0-2) /lpf Urine Mucus Rare H (None) /hpf U Benzodiazepines Scrn Detected H (NotDetected)
--- NOTE | 2023-02-18 13:29 | P.CN ---
Psychiatric Consult - . Consult date: 02/18/23 Consult:: 02/18/23 13:21 Patient was seen for psych consult regarding her psychosis. She has a history consistent with mood disorder per her medication. She was admitted to the unit because of altered mental status and is currently diagnosed with a UTI and is treated for it. She was seen in her room sitting in her chair. She is not able to participate in coherent examination. She appears to be preoccupied with her own thinking and will not remember the questions asked and after a while she will asked what does he last question last. Her response often gets irrelevant and irrational. She shows blocking and questions had to be repeated as noted earlier. She is not able to give a coherent history. She said she is from [facility] before saying [place] she said she was from [place]. Her BUN and creatinine are elevated and use of lithium could cause lithium toxicity. Her records indicate she has acute kidney injury from dehydration. Her mouth is dry also She appears to be quite confused consistent with neurocognitive disorder which appears to be secondary to her UTI. Suggestion: [place] should be withheld or started at a smaller dose with daily or every other day lithium level done to prevent lithium toxicity. Other mental health medications could be administered. Once her delirium/altered mental status is resolved and if she still needs to come to the mental health unit we will be happy to reevaluate her at that time.
[2023-02-18] MEDS: PARoxetine 10 MG TAB PO SCH ×2 (18:13→20:15)
[2023-02-18] MEDS: TRIHEXYPHENIDYL 2 MG TAB PO SCH ×2 (18:13→20:15)
[2023-02-18] MEDS: LORazepam 0.5 MG TAB PO SCH (20:15)
[2023-02-18] MEDS: OLANZapine 5 MG TAB PO SCH (20:15)
[2023-02-18] MEDS: ATORVASTATIN 20 MG TAB PO SCH (20:15)
[2023-02-19 07:19] LABS: African American GFR (CKD) 90 (>60 ml/min/1.73 sqM); Anion Gap 13 mmol/L; Blood Urea Nitrogen 15 mg/dL (7-17); Calcium 9.8 mg/dL (8.4-10.2); Carbon Dioxide 22 mmol/L (22-30); Chloride 103 mmol/L (98-107); Glucose 129 mg/dL (74-99); Non-African American GFR(CKD) 78 (>60 ml/min/1.73 sqM); Potassium 4.1 mmol/L (3.5-5.1); Sodium 138 mmol/L (137-145)
[2023-02-19 09:01] LABS: HCT 38.5 % (34.0-46.0); HGB 13.3 gm/dL (11.4-16.0); MCH 27.6 pg (25.0-35.0); MCHC 34.6 g/dL (31.0-37.0); MCV 79.8 fL (80.0-100.0); Mean Platelet Volume 7.8; Platelet Count 298 k/uL (150-450); Poikilocytosis Slight; RBC 4.83 m/uL (3.80-5.40); RDW 15.6 % (11.5-15.5); WBC 9.6 k/uL (3.8-10.6)
[2023-02-19] MEDS: TRIHEXYPHENIDYL 2 MG TAB PO SCH ×4 (09:20→22:07)
[2023-02-19] MEDS: FENOFIBRATE 160 MG TAB PO SCH (09:20)
[2023-02-19] MEDS: CHOLECALCIFEROL 25 MCG (1000 IU) TABLET PO SCH (09:20)
[2023-02-19] MEDS: LEVOTHYROXINE 50 MCG TAB PO SCH (09:21)
[2023-02-19] MEDS: PARoxetine 10 MG TAB PO SCH ×3 (09:21→22:07)
[2023-02-19] MEDS: ASPIRIN 81 MG PO SCH (09:21)
[2023-02-19] MEDS: LORATADINE 10 MG TAB PO SCH (09:21)
[2023-02-19] MEDS: LORazepam 0.5 MG TAB PO SCH ×3 (09:21→22:05)
[2023-02-19] MEDS: FERROUS SULFATE 325 MG TAB PO SCH (09:22)
[2023-02-19] MEDS: lamoTRIgine 100 MG TAB PO SCH (09:22)
[2023-02-19] MEDS: ENOXAPARIN 40 MG/0.4 ML SYRINGE SQ SCH (09:22)
[2023-02-19] MEDS: ASCORBIC ACID 500 MG TAB PO SCH (09:22)
[2023-02-19] MEDS: LITHIUM CARBONATE 300 MG CAP PO SCH (09:22)
[2023-02-19] MEDS: PANTOPRAZOLE 40 MG TABLET PO SCH (09:22)
[2023-02-19] MEDS: amLODIPine 5 MG TAB PO SCH (09:29)
[2023-02-19 10:44] LABS: Appearance,Urine Clear (Clear); Bilirubin,Urine Negative (Negative); Blood,Urine Negative (Negative); Color,Urine Yellow; Glucose,Urine (UA) Negative (Negative); Hyaline Casts,Urine 15 /lpf (0-2); Ketones,Urine 2+ (Negative); Leukocyte Esterase,Urine Moderate (Negative); Mucus,Urine Rare /hpf; Nitrite,Urine Negative (Negative); Protein,Urine Negative (Negative); RBC,Urine 5 /hpf (0-5); Specific Gravity,Urine 1.016 (1.001-1.035); Squamous Epithelial Cell,Urine 1 /hpf (0-4); Urobilinogen,Urine <2.0 mg/dL (<2.0); WBC,Urine 12 /hpf (0-5)
--- NOTE | 2023-02-19 11:08 | P.PN ---
Subjective Progress Note Date: 02/19/23 Hospital Course: 67-year-old female with a PMH of type II DM, hypertension, hyperlipidemia, hypothyroidism, schizophrenia, and COPD with pulmonary hypertension, who was sent from [facility] for altered mental status and multiple falls. Chest x-ray in the emergency room a persistent left basilar infiltrate versus atelectasis. EKG revealed sinus rhythm at 64 bpm with flattened T waves diffusely. Laboratory evaluation revealed WBC count of 10.5, hemoglobin 12.6, platelets 296, sodium 138, potassium 4.1, chloride 102, BUN 22, creatinine 1.10, troponin less than 0.012, and UA consistent with UTI. Of note, the patient previously had a urine culture from 12/31 which grew VRE. Patient currently admitted for acute metabolic encephalopathy and urinary tract infection. Subjective: Patient and examined at bedside. No acute events overnight. Denies any abdominal pain.. Denies any chest pain, shortness of breath, urinary or bowel complaints. Pertinent positives and negatives as discussed above, a complete review of systems was performed and all other systems are negative. Vitals Signs Reviewed. General: nontoxic, no distress, appears at stated age Derm: warm, dry Head: atraumatic, normocephalic, symmetric Eyes: EOMI, no lid lag, anicteric sclera Mouth: no lip lesion, mucus membranes moist Cardiovascular: S1S2 reg, no murmur Lungs: CTA bilateral, no rhonchi, no rales , no accessory muscle use Abdominal: soft, nontender to palpation, no guarding, no appreciable or ganomegaly Ext: no gross muscle atrophy, no edema, no contractures Neuro: CN II-XI grossly intact, no focal neuro deficits Psych: Alert, oriented 2, appropriate affect Data Reviewed Today: Pertinent Labs: WBC 9.6, hemoglobin 13.3, platelet 298, sodium 138, creatinine 0.8, lithium 0.7 Assessment and Plan: Active: Acute metabolic encephalopathy, UTI History of psychosis and schizophrenia Bipolar disorder on lithium LOC secondary to dehydration from poor oral intake, resolved -Mental status still not at baseline -Altered mentation likely in the setting of UTI, versus polypharmacy -Holding oxybutynin -Had direct conversation with PCP, patient was previously on Haldol which was switched to Zyprexa -Psychiatry has been consulted, would appreciate recommendation with regards to switching back to Haldol -[place] levels have been therapeutic -Patient is also on trihexyphenidyl, which may be contributing to her mental status changes -Once delirium improves, patient will likely be reevaluated for inpatient psychiatry, psychiatry note reviewed -TSH and B12 ordered -MiraLAX daily ordered, patient is voiding -Continue IV ceftriaxone 2 g every 24 hours, urine culture pending, previously grown VRE -Blood cultures negative growth to date -Continue IV fluids at 75 mL normal saline an hour -Holding meloxicam Chronic: COPD, Type 2 DM, HTN, HLD, Hypothyroidism DVT ppx: Lovenox Code status: Full code Anticipated discharge place: Pending clinical course Anticipated discharge time: Pending clinical course Objective - Vital Signs Vital signs: Vital Signs Temp 97.8 F 02/19/23 07:33 Pulse 89 02/19/23 07:33 Resp 16 02/19/23 07:33 BP 181/105 02/19/23 07:33 Pulse Ox 94 L 02/19/23 07:33 FiO2 Intake & Output 02/18/23 02/19/23 02/19/23 18:59 06:59 18:59 Intake Total 240 Balance 240 Weight 77.111 kg Intake: Oral 240 Other: # Bowel Movements 0 - Labs CBC & Chem 7: 02/19/23 06:09 02/19/23 06:09 Labs: Abnormal Lab Results - Last 24 Hours (Table) 02/19/23 02/19/23 02/19/23 Range/Units 06:09 06:09 10:18 MCV 79.8 L (80.0-100.0) fL RDW 15.6 H (11.5-15.5) % Glucose 129 H (74-99) mg/dL Urine Ketones 2+ H (Negative) Ur Leukocyte Esterase Moderate H (Negative) Urine WBC 12 H (0-5) /hpf Hyaline Casts 15 H (0-2) /lpf Urine Mucus Rare H (None) /hpf Microbiology - Last 24 Hours (Table) 02/17/23 22:40 Blood Culture - Preliminary Blood No Growth after 24 hours 02/17/23 22:25 Blood Culture - Preliminary Blood No Growth after 24 hours
[2023-02-19] MEDS: polyethylene glycoL 3350 17 GM POWD.PACK PO SCH (13:03)
[2023-02-19] MEDS: CYANOCOBALAMIN 500 MCG TAB PO SCH (17:22)
[2023-02-19] MEDS: SODIUM CHLORIDE 0.9% 1,000 ML IV SCH (17:23)
[2023-02-19] MEDS: ATORVASTATIN 20 MG TAB PO SCH (22:06)
[2023-02-19] MEDS: OLANZapine 5 MG TAB PO SCH (22:07)
[2023-02-20] MEDS: polyethylene glycoL 3350 17 GM POWD.PACK PO SCH (08:38)
[2023-02-20] MEDS: ENOXAPARIN 40 MG/0.4 ML SYRINGE SQ SCH (08:38)
[2023-02-20] MEDS: PANTOPRAZOLE 40 MG TABLET PO SCH (08:38)
[2023-02-20] MEDS: TRIHEXYPHENIDYL 2 MG TAB PO SCH ×4 (08:39→21:54)
[2023-02-20] MEDS: PARoxetine 10 MG TAB PO SCH ×3 (08:39→21:55)
[2023-02-20] MEDS: lamoTRIgine 100 MG TAB PO SCH (08:39)
[2023-02-20] MEDS: LITHIUM CARBONATE 300 MG CAP PO SCH (08:39)
[2023-02-20] MEDS: amLODIPine 5 MG TAB PO SCH (08:39)
[2023-02-20] MEDS: ASCORBIC ACID 500 MG TAB PO SCH (08:40)
[2023-02-20] MEDS: CHOLECALCIFEROL 25 MCG (1000 IU) TABLET PO SCH (08:40)
[2023-02-20] MEDS: LORATADINE 10 MG TAB PO SCH (08:40)
[2023-02-20] MEDS: FENOFIBRATE 160 MG TAB PO SCH (08:40)
[2023-02-20] MEDS: ASPIRIN 81 MG PO SCH (08:40)
[2023-02-20] MEDS: LORazepam 0.5 MG TAB PO SCH ×3 (08:40→21:54)
[2023-02-20] MEDS: LEVOTHYROXINE 50 MCG TAB PO SCH (08:40)
[2023-02-20] MEDS: CYANOCOBALAMIN 500 MCG TAB PO SCH (08:40)
[2023-02-20] MEDS: FERROUS SULFATE 325 MG TAB PO SCH (08:40)
[2023-02-20] MEDS: SODIUM CHLORIDE 0.9% 1,000 ML IV SCH ×2 (09:13→18:03)
--- NOTE | 2023-02-20 12:07 | P.PN ---
Subjective Progress Note Date: 02/20/23 Hospital Course: 67-year-old female with a PMH of type II DM, hypertension, hyperlipidemia, hypo thyroidism, schizophrenia, and COPD with pulmonary hypertension, who was sent from [facility] for altered mental status and multiple falls. Chest x-ray in the emergency room a persistent left basilar infiltrate versus atelectasis. EKG revealed sinus rhythm at 64 bpm with flattened T waves diffusely. Laboratory evaluation revealed WBC count of 10.5, hemoglobin 12.6, platelets 296, sodium 138, potassium 4.1, chloride 102, BUN 22, creatinine 1.10, troponin less than 0.012, and UA consistent with UTI. Of note, the patient previously had a urine culture from 12/31 which grew VRE. Patient currently admitted for acute metabolic encephalopathy and urinary tract infection. Subjective: Patient and examined at bedside. No acute events overnight. Denies any abdominal pain.. Denies any chest pain, shortness of breath, urinary or bowel complaints. Pertinent positives and negatives as discussed above, a complete review of systems was performed and all other systems are negative. Vitals Signs Reviewed. General: nontoxic, no distress, appears at stated age Derm: warm, dry Head: atraumatic, normocephalic, symmetric Eyes: EOMI, no lid lag, anicteric sclera Mouth: no lip lesion, mucus membranes moist Cardiovascular: S1S2 reg, no murmur Lungs: CTA bilateral, no rhonchi, no rales , no accessory muscle use Abdominal: soft, nontender to palpation, no guarding, no appreciable organomega ly Ext: no gross muscle atrophy, no edema, no contractures Neuro: CN II-XI grossly intact, no focal neuro deficits Psych: Alert, oriented 3, appropriate affect Data Reviewed Today: B12 390, TSH 6.05 Urine culture pending Assessment and Plan: Active: Acute metabolic encephalopathy, resolved UTI History of psychosis and schizophrenia Bipolar disorder on lithium LOC secondary to dehydration from poor oral intake, resolved -Mental status appears to be at baseline -Altered mentation likely in the setting of UTI, versus polypharmacy -Holding oxybutynin -Psychiatry has been consulted, would appreciate recommendation with regards to switching Zyprexa back to Haldol -[place] levels have been therapeutic -Patient is also on trihexyphenidyl, which may be contributing to her mental status changes -Will need to be reevaluated by psychiatry, to consider for inpatient psychiatry -B12 low normal, ordered repletion -TSH slightly elevated, continue levothyroxine, FT4 pending -MiraLAX daily ordered, patient is voiding -Continue IV ceftriaxone 2 g every 24 hours, urine culture pending, previously grown VRE -Blood cultures negative growth to date -Continue IV fluids at 75 mL normal saline an hour -Holding meloxicam Chronic: COPD, Type 2 DM, HTN, HLD, Hypothyroidism DVT ppx: Lovenox Code status: Full code Anticipated discharge place: Pending clinical course Anticipated discharge time: Pending clinical course Objective - Vital Signs Vital signs: Vital Signs Temp 98.4 F 02/20/23 07:46 Pulse 75 02/20/23 07:46 Resp 16 02/20/23 07:46 BP 147/82 02/20/23 07:46 Pulse Ox 96 02/20/23 07:46 FiO2 Intake & Output 02/19/23 02/20/23 02/20/23 18:59 06:59 18:59 Intake Total 240 Balance 240 Intake: Intake, IV Titration 240 Amount Sodium Chloride 0.9% 1, 240 000 ml @ 75 mls/hr IV . [id number] JUANITO Rx#:[id number] Other: # Voids 3 - Labs CBC & Chem 7: 02/19/23 06:09 02/19/23 06:09 Labs: Abnormal Lab Results - Last 24 Hours (Table) 02/19/23 Range/Units 06:09 TSH 6.050 H (0.465-4.680) mIU/L Microbiology - Last 24 Hours (Table) 02/17/23 22:40 Blood Culture - Preliminary Blood No Growth after 48 hours 02/17/23 22:25 Blood Culture - Preliminary Blood No Growth after 48 hours 02/19/23 10:18 Urine Culture - Preliminary Urine,Voided
[2023-02-20] MEDS: ATORVASTATIN 20 MG TAB PO SCH (21:54)
[2023-02-20] MEDS: OLANZapine 5 MG TAB PO SCH (21:55)
[2023-02-21] MEDS: SODIUM CHLORIDE 0.9% 1,000 ML IV SCH (06:31)
[2023-02-21] MEDS: ASCORBIC ACID 500 MG TAB PO SCH (08:42)
[2023-02-21] MEDS: ASPIRIN 81 MG PO SCH (08:42)
[2023-02-21] MEDS: FERROUS SULFATE 325 MG TAB PO SCH (08:43)
[2023-02-21] MEDS: lamoTRIgine 100 MG TAB PO SCH (08:43)
[2023-02-21] MEDS: LEVOTHYROXINE 50 MCG TAB PO SCH (08:43)
[2023-02-21] MEDS: LITHIUM CARBONATE 300 MG CAP PO SCH (08:43)
[2023-02-21] MEDS: LORATADINE 10 MG TAB PO SCH (08:43)
[2023-02-21] MEDS: CHOLECALCIFEROL 25 MCG (1000 IU) TABLET PO SCH (08:43)
[2023-02-21] MEDS: LORazepam 0.5 MG TAB PO SCH ×3 (08:44→20:12)
[2023-02-21] MEDS: PANTOPRAZOLE 40 MG TABLET PO SCH (08:44)
[2023-02-21] MEDS: amLODIPine 5 MG TAB PO SCH (08:45)
[2023-02-21] MEDS: PARoxetine 10 MG TAB PO SCH ×3 (08:45→20:12)
[2023-02-21] MEDS: CYANOCOBALAMIN 500 MCG TAB PO SCH (08:45)
[2023-02-21] MEDS: ENOXAPARIN 40 MG/0.4 ML SYRINGE SQ SCH (08:45)
[2023-02-21] MEDS: polyethylene glycoL 3350 17 GM POWD.PACK PO SCH (08:46)
[2023-02-21] MEDS: FENOFIBRATE 160 MG TAB PO SCH (08:46)
--- NOTE | 2023-02-21 12:12 | P.PN ---
Subjective Progress Note Date: 02/21/23 Hospital Course: 67-year-old female with a PMH of type II DM, hypertension, hyperlipidemia, hypothyroidism, schizophrenia, and COPD with pulmonary hypertension, who was sent from [facility] for altered mental status and multiple falls. Chest x-ray in the emergency room a persistent left basilar infiltrate versus atelectasis. EKG revealed sinus rhythm at 64 bpm with flattened T waves diffusely. Laboratory evaluation revealed WBC count of 10.5, hemoglobin 12.6, platelets 296, sodium 138, potassium 4.1, chloride 102, BUN 22, creatinine 1.10, troponin less than 0.012, and UA consistent with UTI. Of note, the patient previously had a urine culture from 12/31 which grew VRE. Patient currently admitted for acute metabolic encephalopathy and urinary tract infection. Mental status is improved. Subjective: Patient and examined at bedside. No acute events overnight. Denies any abdominal pain.. Denies any chest pain, shortness of breath, urinary or bowel complaints. Pertinent positives and negatives as discussed above, a complete review of systems was performed and all other systems are negative. Vitals Signs Reviewed. General: nontoxic, no distress, appears at stated age Derm: warm, dry Head: atraumatic, normocephalic, symmetric Eyes: EOMI, no lid lag, anicteric sclera Mouth: no lip lesion, mucus membranes moist Cardiovascular: S1S2 reg, no murmur Lungs: CTA bilateral, no rhonchi, no rales , no accessory muscle use Abdominal: soft, nontender to palpation, no guarding, no appreciable organomegaly Ext: no gross muscle atrophy, no edema, no contractures Neuro: CN II-XI grossly intact, no focal neuro deficits Psych: Alert, oriented 3, appropriate affect Data Reviewed Today: Free T4 1.92 Urine culture no growth to date Assessment and Plan: Active: Acute metabolic encephalopathy, resolved UTI History of psychosis and schizophrenia Bipolar disorder on lithium LOC secondary to dehydration from poor oral intake, resolved -Mental status appears to be at baseline -Altered mentation likely in the setting of UTI, versus polypharmacy -Holding oxybutynin -Psychiatry has been consulted, would appreciate recommendation with regards to switching Zyprexa back to Haldol -[place] levels have been therapeutic -Patient is also on trihexyphenidyl, which may be contributing to her mental status changes -B12 low normal, now on repletion therapy -TSH slightly elevated, continue levothyroxine, FT4 within normal limits, repeat TSH in 4-6 weeks -Patient having bowel movements and voiding well. -Continue IV ceftriaxone 2 g every 24 hours, urine culture was collected 2 days after her admission, no growth to date -switch to oral cefdinir for total of 7 day of course at the time of discharge -Blood cultures negative growth to date -Continue IV fluids at 75 mL normal saline an hour -Holding meloxicam Chronic: COPD, Type 2 DM, HTN, HLD, Hypothyroidism DVT ppx: Lovenox Code status: Full code Anticipated discharge place: Pending clinical course Anticipated discharge time: 1-2 days Objective - Vital Signs Vital signs: Vital Signs Temp 97.9 F 02/21/23 07:30 Pulse 72 02/21/23 08:45 Resp 16 02/21/23 08:45 BP 162/92 02/21/23 07:30 Pulse Ox 95 02/21/23 07:30 FiO2 Intake & Output 02/20/23 02/21/23 02/21/23 18:59 06:59 18:59 Intake Total 490 Balance 490 Intake: Intake, IV Titration 190 Amount Sodium Chloride 0.9% 1, 90 000 ml @ 75 mls/hr IV . [id number] JUANITO Rx#:[id number] cefTRIAXone 2 gm In 100 Sodium Chloride 0.9% 50 ml @ 100 mls/hr IVPB Q24H JUANITO Rx#:[id number] Oral 300 Other: # Voids 2 2 2 # Bowel Movements 1 - Labs CBC & Chem 7: 02/19/23 06:09 02/19/23 06:09 Labs: Microbiology - Last 24 Hours (Table) 02/17/23 22:40 Blood Culture - Preliminary Blood No Growth after 72 hours 02/17/23 22:25 Blood Culture - Preliminary Blood No Growth after 72 hours 02/19/23 10:18 Urine Culture - Final Urine,Voided
[2023-02-21] MEDS: TRIHEXYPHENIDYL 2 MG TAB PO SCH ×4 (12:16→22:27)
[2023-02-21] MEDS: OLANZapine 5 MG TAB PO SCH (20:12)
[2023-02-21] MEDS: ATORVASTATIN 20 MG TAB PO SCH (20:12)
[2023-02-22] MEDS: SODIUM CHLORIDE 0.9% 1,000 ML IV SCH ×3 (00:14→23:29)
[2023-02-22] MEDS: amLODIPine 5 MG TAB PO SCH (06:13)
[2023-02-22] MEDS: ENOXAPARIN 40 MG/0.4 ML SYRINGE SQ SCH (08:45)
[2023-02-22] MEDS: lamoTRIgine 100 MG TAB PO SCH (08:46)
[2023-02-22] MEDS: LITHIUM CARBONATE 300 MG CAP PO SCH (08:46)
[2023-02-22] MEDS: LEVOTHYROXINE 50 MCG TAB PO SCH (08:46)
[2023-02-22] MEDS: LORazepam 0.5 MG TAB PO SCH ×3 (08:46→20:01)
[2023-02-22] MEDS: FENOFIBRATE 160 MG TAB PO SCH (08:46)
[2023-02-22] MEDS: PANTOPRAZOLE 40 MG TABLET PO SCH (08:46)
[2023-02-22] MEDS: FERROUS SULFATE 325 MG TAB PO SCH (08:46)
[2023-02-22] MEDS: CYANOCOBALAMIN 500 MCG TAB PO SCH (08:47)
[2023-02-22] MEDS: polyethylene glycoL 3350 17 GM POWD.PACK PO SCH (08:47)
[2023-02-22] MEDS: ASCORBIC ACID 500 MG TAB PO SCH (08:47)
[2023-02-22] MEDS: PARoxetine 10 MG TAB PO SCH ×3 (08:47→20:00)
[2023-02-22] MEDS: ASPIRIN 81 MG PO SCH (08:47)
[2023-02-22] MEDS: TRIHEXYPHENIDYL 2 MG TAB PO SCH ×4 (08:47→20:00)
[2023-02-22] MEDS: CHOLECALCIFEROL 25 MCG (1000 IU) TABLET PO SCH (08:47)
[2023-02-22] MEDS: LORATADINE 10 MG TAB PO SCH (08:47)
--- NOTE | 2023-02-22 18:27 | P.PN ---
Subjective Progress Note Date: 02/22/23 Hospital Course: Patient is a very pleasant 67-year-old female with a PMH of type II DM, hypertension, hyperlipidemia, hypothyroidism, schizophrenia, and COPD with pulmonary hypertension. She was sent from [facility] for altered mental status and multiple falls. Chest x-ray in the emergency room a persistent left basilar infiltrate versus atelectasis. EKG revealed sinus rhythm at 64 bpm with flattened T waves diffusely. Laboratory evaluation revealed WBC count of 10.5, hemoglobin 12.6, platelets 296, sodium 138, potassium 4.1, chloride 102, BUN 22, creatinine 1.10, troponin less than 0.012, and UA consistent with UTI. Of note, the patient previously had a urine culture from 12/31 which grew VRE. Patient was admitted for acute metabolic encephalopathy and urinary tract infection. Mental status is improved. Discussed with [facility] [employer] and plan is for patient to be discharged to their facility tomorrow morning. Physical Exam Patient and examined at bedside. No acute events overnight. Denies any abdominal pain.. Denies any chest pain, shortness of breath, urinary or bowel complaints. Pertinent positives and negatives as discussed above, a complete review of systems was performed and all other systems are negative. Vitals Signs Reviewed. General: nontoxic, no distress, appears at stated age Derm: warm, dry Head: atraumatic, normocephalic, symmetric Eyes: EOMI, no lid lag, anicteric sclera Mouth: no lip lesion, mucus membranes moist Cardiovascular: S1S2 reg, no murmur Lungs: CTA bilateral, no rhonchi, no rales , no accessory muscle use Abdominal: soft, nontender to palpation, no guarding, no appreciable organomegaly Ext: no gross muscle atrophy, no edema, no contractures Neuro: CN II-XI grossly intact, no focal neuro deficits Psych: Alert, oriented 3, appropriate affect Assessment and Plan of Care: Acute metabolic encephalopathy, resolved UTI History of psychosis and schizophrenia Bipolar disorder on lithium LOC secondary to dehydration from poor oral intake, resolved -Mental status appears to be at baseline. -Altered mentation likely in the setting of UTI, versus polypharmacy -Holding oxybutynin -Psychiatry evaluated and noted reviewed stating patient's confusion consistent with neurocognitive disorder consistent with UTI. -[place] levels have been therapeutic -Patient is also on trihexyphenidyl, which may be contributing to her mental status changes -B12 low normal, now on repletion therapy -TSH slightly elevated, continue levothyroxine, FT4 within normal limits, repeat TSH in 4-6 weeks -Continue IV ceftriaxone 2 g every 24 hours, urine culture was collected 2 days after her admission, no growth to date. Today is day 4 out of 5 for IV antibiotics. -patient to be switched to oral cefdinir for total of 7 day of course at the time of discharge -Blood cultures negative growth to date -Continue IV fluids at 75 mL normal saline an hour -Holding meloxicam Chronic: COPD, Type 2 DM, HTN, HLD, Hypothyroidism CODE STATUS: full code DVT prophylaxis: Lovenox [facility]: [facility], RN[facility] [employer] Anticipated discharge date: tomorrow morning Anticipated discharge place: Returnt to [facility] Patient was seen independently by Nurse Pracitioner. This document was prepared using [employer] dictation software. Please allow for errors in dust box tender, while rare they do occur. Objective - Vital Signs Vital signs: Vital Signs Temp 97.3 F L 02/22/23 07:39 Pulse 87 02/22/23 07:39 Resp 16 02/22/23 07:39 BP 166/96 02/22/23 07:39 Pulse Ox 98 02/22/23 08:01 FiO2 Intake & Output 02/21/23 02/22/23 02/22/23 18:59 06:59 18:59 Intake Total 480 Balance 480 Intake: Oral 480 Other: # Voids 4 2 # Bowel Movements 1 - Labs CBC & Chem 7: 02/19/23 06:09 02/19/23 06:09 Labs: Microbiology - Last 24 Hours (Table) 02/17/23 22:40 Blood Culture - Preliminary Blood No Growth after 96 hours 02/17/23 22:25 Blood Culture - Preliminary Blood No Growth after 96 hours
[2023-02-22] MEDS: OLANZapine 5 MG TAB PO SCH (20:00)
[2023-02-22] MEDS: ATORVASTATIN 20 MG TAB PO SCH (20:01)
[2023-02-23 07:57] VITALS: BP 134/85; PULSE 69; RESP 18; TEMP 98.2
[2023-02-23] MEDS: ENOXAPARIN 40 MG/0.4 ML SYRINGE SQ SCH (09:24)
[2023-02-23] MEDS: CYANOCOBALAMIN 500 MCG TAB PO SCH (09:25)
[2023-02-23] MEDS: ASPIRIN 81 MG PO SCH (09:25)
[2023-02-23] MEDS: FENOFIBRATE 160 MG TAB PO SCH (09:25)
[2023-02-23] MEDS: PANTOPRAZOLE 40 MG TABLET PO SCH (09:25)
[2023-02-23] MEDS: CHOLECALCIFEROL 25 MCG (1000 IU) TABLET PO SCH (09:25)
[2023-02-23] MEDS: LORazepam 0.5 MG TAB PO SCH ×2 (09:26→12:41)
[2023-02-23] MEDS: LEVOTHYROXINE 50 MCG TAB PO SCH (09:26)
[2023-02-23] MEDS: polyethylene glycoL 3350 17 GM POWD.PACK PO SCH (09:26)
[2023-02-23] MEDS: ASCORBIC ACID 500 MG TAB PO SCH (09:26)
[2023-02-23] MEDS: lamoTRIgine 100 MG TAB PO SCH (09:26)
[2023-02-23] MEDS: amLODIPine 5 MG TAB PO SCH (09:26)
[2023-02-23] MEDS: FERROUS SULFATE 325 MG TAB PO SCH (09:26)
[2023-02-23] MEDS: LORATADINE 10 MG TAB PO SCH (09:26)
[2023-02-23] MEDS: LITHIUM CARBONATE 300 MG CAP PO SCH (09:27)
[2023-02-23] MEDS: PARoxetine 10 MG TAB PO SCH (09:28)
[2023-02-23] MEDS: TRIHEXYPHENIDYL 2 MG TAB PO SCH ×2 (09:28→12:39)
[2023-02-23] MEDS: SODIUM CHLORIDE 0.9% 1,000 ML IV SCH (12:40)
--- NOTE | 2023-02-23 12:44 | P.DS ---
Providers Date of admission: 02/18/23 00:49 Expected date of discharge: 02/23/23 Attending physician: Rodrick Mckeon MD Consults: 02/17/23 22:39 Consult Physician Routine Consulting Provider: Vinay Mendez Consult Reason/Comments: Psychosis Do you want consulting provider notified?: Already Contacted Primary care physician: Stated None Hospital Course: Discharge Diagnosis: Acute metabolic encephalopathy, resolved UTI, completed 5 day course of IV antibiotics with Rocephin. History of psychosis and schizophrenia Bipolar disorder on lithium LOC secondary to dehydration from poor oral intake, resolved COPD Type 2 DM HTN HLD Hypothyroidism Hospital Course: Patient is a very pleasant 67-year-old female with a PMH of type II DM, hypertension, hyperlipidemia, hypothyroidism, schizophrenia, and COPD with pulmonary hypertension. She was sent from [facility] for altered mental status and multiple falls. Chest x-ray in the emergency room a persistent left basilar infiltrate versus atelectasis. EKG revealed sinus rhythm at 64 bpm with flattened T waves diffusely. Laboratory evaluation revealed WBC count of 10.5, hemoglobin 12.6, platelets 296, sodium 138, potassium 4.1, chloride 102, BUN 22, creatinine 1.10, troponin less than 0.012, and UA consistent with UTI. Of note, the patient previously had a urine culture from 12/31 which grew VRE. Patient was admitted for acute metabolic encephalopathy and urinary tract infection. Mental status is improved. Patient completed 5 day course of IV antibiotics with Rocephin. She is medically stable for discharge at this time. Discussed with [facility] [employer]OLE[employer]CH[employer]IC and patient to be discharged back to their facility. Physical Exam Patient and examined at bedside. No acute events overnight. Denies any abdominal pain.. Denies any chest pain, shortness of breath, urinary or bowel complaints. Pertinent positives and negatives as discussed above, a complete review of systems was performed and all other systems are negative. Vitals Signs Reviewed. General: nontoxic, no distress, appears at stated age Derm: warm, dry Head: atraumatic, normocephalic, symmetric Eyes: EOMI, no lid lag, anicteric sclera Mouth: no lip lesion, mucus membranes moist Cardiovascular: S1S2 reg, no murmur Lungs: CTA bilateral, no rhonchi, no rales , no accessory muscle use Abdominal: soft, nontender to palpation, no guarding, no appreciable organomegaly Ext: no gross muscle atrophy, no edema, no contractures Neuro: CN II-XI grossly intact, no focal neuro deficits Psych: Alert, oriented 3, appropriate affect A total of 31 minutes of time were spent preparing this complex discharge summary. Pt was discharged on 02/23/23 at 9:57 AM. Patient was seen independently by Nurse Practitioner. This document was prepared using [employer] dictation software. 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 Efren Lopez NP rendered care for this patient independently, reviewed the findings and plan as documented in the note above. I did not physically speak with or examine the patient on this date. Patient Condition at Discharge: Stable Plan - Discharge Summary New Discharge Prescriptions: New amLODIPine [Norvasc] 5 mg PO DAILY 30 Days #30 tab Cyanocobalamin [Vitamin B-12] 1,000 mcg PO DAILY 30 Days #60 tab Continue Levothyroxine Sodium [Synthroid] 50 mcg PO DAILY@0800 metFORMIN HCL [Glucophage] 500 mg PO BID@0800,1999 Atorvastatin [Lipitor] 20 mg PO HS@1999 rOPINIRole HCL [Requip] 0.5 mg PO HS@1999 lamoTRIgine [LaMICtal] 200 mg PO DAILY@0800 [place] Carbonate 600 mg PO DAILY@0800 atenoloL 12.5 mg PO DAILY@0800 Omeprazole 20 mg PO DAILY@0800 Cholecalciferol [Vitamin D3 (25 Mcg = 1000 Iu)] 50 mcg PO DAILY@0800 Oxybutynin Chloride [Ditropan] 5 mg PO BID@0800,1999 Trihexyphenidyl [Artane] 2 mg PO QID@08,12,17,20 LORazepam [Ativan] 0.25 mg PO TID@0800,1200,2000 PARoxetine [Paxil] 10 mg PO TID@0800,1700,2000 Ascorbic Acid [Vitamin C] 500 mg PO DAILY@0800 Aspirin EC [Ecotrin Low Dose] 81 mg PO DAILY@0800 Levocetirizine Dihydrochloride [Xyzal] 5 mg PO DAILY@0800 Meloxicam [Mobic] 15 mg PO DAILY@0800 gemfibroziL [Lopid] 600 mg PO AC-BID OLANZapine [ZyPREXA] 5 mg PO HS@2000 Ferrous Sulfate [Iron (65 MG Elemental)] 325 mg PO DAILY@0800 Discharge Medication List Levothyroxine Sodium [Synthroid] 50 mcg PO DAILY@0806/01/15 [History] metFORMIN HCL [Glucophage] 500 mg PO BID@08,199912/15/17 [History] Atorvastatin [Lipitor] 20 mg PO HS@199903/07/18 [History] rOPINIRole HCL [Requip] 0.5 mg PO HS@199906/09/18 [History] lamoTRIgine [LaMICtal] 200 mg PO DAILY@0804/06/19 [History] [place] Carbonate 600 mg PO DAILY@0812/22/20 [History] atenoloL 12.5 mg PO DAILY@79912/22/20 [History] Omeprazole 20 mg PO DAILY@0801/23/21 [History] Ascorbic Acid [Vitamin C] 500 mg PO DAILY@0810/14/22 [History] Cholecalciferol [Vitamin D3 (25 Mcg = 1000 Iu)] 50 mcg PO DAILY@0810/14/22 [History] Aspirin EC [Ecotrin Low Dose] 81 mg PO DAILY@0811/20/22 [History] Levocetirizine Dihydrochloride [Xyzal] 5 mg PO DAILY@0811/20/22 [History] Meloxicam [Mobic] 15 mg PO DAILY@79911/20/22 [History] Oxybutynin Chloride [Ditropan] 5 mg PO BID@08,199911/20/22 [History] Trihexyphenidyl [Artane] 2 mg PO QID@08,12,17,11/20/22 [History] Ferrous Sulfate [Iron (65 MG Elemental)] 325 mg PO DAILY@0802/18/23 [History] LORazepam [Ativan] 0.25 mg PO TID@0800,1200,199902/18/23 [History] OLANZapine [ZyPREXA] 5 mg PO HS@199902/18/23 [History] PARoxetine [Paxil] 10 mg PO TID@0800,1700,199902/18/23 [History] gemfibroziL [Lopid] 600 mg PO AC-BID 02/18/23 [History] Cyanocobalamin [Vitamin B-12] 1,000 mcg PO DAILY 30 Days #60 tab 02/23/23 [Rx] amLODIPine [Norvasc] 5 mg PO DAILY 30 Days #30 tab 02/23/23 [Rx] Follow up Appointment(s)/Referral(s): Assocation,Visiting Physicians [NON-STAFF] - As Needed (Family or assisted [facility] to make follow-up appt. with PCP/[facility] please after discharge. ) Patient Instructions/Handouts: Amlodipine (By mouth), Vitamin B-12 (By mouth), Urinary Tract Infection in Women (DC), Encephalopathy (DC), Psychotic Disorder (DC) Activity/Diet/Wound Care/Special Instructions: Activity: As tolerated. Patient requires supervision. Diet: Heart healthy and carb consistent diet. Avoid salts, or foods with hidden salts such as canned or boxed foods and frozen dinners. Extra salt makes your heart work harder and traps the fluid in your body for longer. Special Instructions: Take all of your medications as directed and remember to keep all of your doctor's appointments and follow-up as needed. Thank you for allowing us to participate in your care, it was truly a pleasure having you for our patient!!! Discharge Disposition: TRANSFER TO SNF/ECF
== END 2023-02-23 12:54 | DRG 689 ==
LOC: EC 20:13 → EEVIPCON 20:13 → 5NMEDONC 02-18 00:49
PROVIDERS: ADMIT Internal Medicine; ATTEND Internal Medicine
DX: N39.0 Urinary tract infection, site not specified (principal); G93.41 Metabolic encephalopathy; N17.9 Acute kidney failure, unspecified; I27.20 Pulmonary hypertension, unspecified; F25.9 Schizoaffective disorder, unspecified; E11.42 Type 2 diabetes mellitus with diabetic polyneuropathy; E03.9 Hypothyroidism, unspecified; J44.9 Chronic obstructive pulmonary disease, unspecified; I10 Essential (primary) hypertension; F31.9 Bipolar disorder, unspecified; E78.5 Hyperlipidemia, unspecified; G47.33 Obstructive sleep apnea (adult) (pediatric); I25.10 Atherosclerotic heart disease of native coronary artery without angina pectoris; H35.30 Unspecified macular degeneration; E86.0 Dehydration; R29.6 Repeated falls; Z86.69 Personal history of other diseases of the nervous system and sense organs; I25.2 Old myocardial infarction; Z87.440 Personal history of urinary (tract) infections; Z91.81 History of falling; Z86.19 Personal history of other infectious and parasitic diseases; Z79.890 Hormone replacement therapy; Z79.84 Long term (current) use of oral hypoglycemic drugs; Z79.899 Other long term (current) drug therapy; Z79.82 Long term (current) use of aspirin; Z79.1 Long term (current) use of non-steroidal anti-inflammatories (NSAID); Z88.0 Allergy status to penicillin; Z88.5 Allergy status to narcotic agent; Z88.2 Allergy status to sulfonamides; Z88.1 Allergy status to other antibiotic agents; Z88.8 Allergy status to other drugs, medicaments and biological substances; Z28.310 Unvaccinated for COVID-19
CPT/HCPCS: 36415; 71046; 80048; 80053; 80178; 80306; 80320; 81001; 82140; 82607; 84439; 84443; 84484; 85025; 85027; 85610; 85730; 87040; 87086; 93005; 94760; 96361; 96365; 96366; 99285

== ENCOUNTER → 2023-07-22 | Outpatient (CLI) | payer MEDICARE ==
--- NOTE | 2023-07-22 13:07 | XR ---
EXAMINATION TYPE: XR shoulder limited RT DATE OF EXAM: 07/22/2023 CLINICAL HISTORY: pain TECHNIQUE: Three views of the right shoulder are obtained. COMPARISON: None FINDINGS: There is no acute fracture/dislocation evident. The acromioclavicular and glenohumeral jani int spaces appear within normal limits. The visualized ribs are intact and unremarkable. IMPRESSION: 1. There is no acute fracture or dislocation. ICD 10 NO FRACTURE, INITIAL EVALUATION
== END | disposition home or self-care (01) ==
LOC: RADXRMAIN 12:05
PROVIDERS: ATTEND Nurse Practitioner Adult Health
DX: M25.511 Pain in right shoulder (principal)

== ENCOUNTER → 2023-10-08 | Outpatient (CLI) | payer MEDICARE ==
--- NOTE | 2023-10-11 14:31 | MM ---
Reason for Exam: Screening (asymptomatic). Last mammogram was performed 3 year(s) and 5 month(s) ago. Patient History: Menarche at age 17. First Full-Term at age 32. Late child-bearing (after 32). Postmenopausal. Patient has history of breast feeding. Patient used Hormonal Contraceptives for 1 year. Risk Values: Emily 5 year model risk: 2.1%. NCI Lifetime model risk: 7.5%. Prior Study Comparison: 08/16/2015 Bilateral Screening Mammogram, [facility]. 12/23/2017 Bilateral Screening Mammogram, [facility]. 02/16/2019 Bilateral Screening Mammogram, [facility]. 05/13/2020 Bilateral Screening Mammogram, [facility]. Tissue Density: The breast tissue is heterogeneously dense. This may lower the sensitivity of mammography. Findings: Analyzed By CAD. Pattern appears symmetrical and stable. No significant interval change is evident. A few scattered benign punctate calcifications are present bilaterally. Some chronic nodularity is in the right breast. No suspicious groups of microcalcifications, spiculated or lobular masses, architectural distortion or other secondary signs of malignancy are mammographically apparent. Overall Assessment: Benign, BI-RAD 2 Management: Screening Mammogram of both breasts in 1 year. A negative mammogram report should not preclude additional follow up of suspicious palpable abnormalities. Patient should continue monthly self breast exam. A clinical breast exam by your physician is recommended on an annual basis and results should be correlated with mammographic findings. Electronically signed and approved by: Vinay Delgadillo D.O. Radiologis
== END | disposition home or self-care (01) ==
LOC: RADMAMWWP 13:23
PROVIDERS: ATTEND Emergency Medicine
DX: Z12.31 Encounter for screening mammogram for malignant neoplasm of breast (principal); Z78.0 Asymptomatic menopausal state
CPT/HCPCS: 77063; 77067

== ENCOUNTER 2024-01-09 19:50 | Outpatient (CLI) | payer MEDICARE ==
--- NOTE | 2024-01-20 23:09 | P.PCN ---
Date of Procedure: 01/09/24 Operative Findings: Polysomnography report Date of services 01/09/2024 Pertinent physical findings Patient's height is 5 feet and 7 inches, weight is 2 9 pounds and a body mass index is 32.7 History 68-year-old female patient with known history of obstructive sleep apnea not receiving CPAP therapy. Her disease was mild back in 2007 and at that time the patient had an AHI of 13. Today patient has a older generation [employer]star CPAP unit which is set at a pressure of 11 cm of water and she has not been using the machine for many years. She has become excessively fatigued and sleepy and she is sleeping more than 15 hours a day. She has chronic hypersomnia sleepiness. She also has high extensive mental health history including schizophrenia and depression and she has been maintained on various medication including SSRI, mood stabilizers, benzodiazepine and Haldol. She also has history of restless leg syndrome maintained on low-dose Requip. Technical description The patient was studied using a standard complex polysomnography protocol that included recording of the 2 EKG, Central, occipital and frontal EEG, right and left outer canthus EOG, submental EMG, right and left anterior tibialis EMG, respiratory airflow by thermocouple and or pressure/flow transducer, respiratory efforts by abdominal and thoracic PVDF belts, oxygen saturation by cable oximetry. Position by observation synchronized the PSG. Equipment used: [employer]. Sleep architecture The total recording time was 422.5 minutes. Total sleep time was 333.5 minutes. The sleep efficiency was 78.9%. Latency to sleep onset was 57.5 minutes. Latest REM sleep was 293.5 minutes. The sleep architecture was catheterized with 31.8% stage I, 63.9% stage II, 0% stage III and IV 0.3% REM sleep. Wake after sleep onset time was 25 minutes. The total arousal index was 26.8 Respiratory analysis The sleep study showed a total of 134 obstructive events of which 15 obstructive apneas, 0 mixed apneas and 119 were obstructive hypopneas and the resulting AHI was 21.9. No central apneas were noted Oxygenation analysis The baseline pulse ox while awake was 95%. Lowest pulse ox was 80% and the patient spent approximately 3 hours and 2 minutes of sleep time below pulse ox of 89%. The minimum pulse ox was 80% during REM sleep. Sleep continuity summary Patient had total of 149 arousals with index of 26.8 and a respiratory arousal index was 6.1 Periodic limb movements The patient had a total of 252 periodic movements there were counted throughout the sleep study with an index of 45.3 and there was also 7 periodic limb movement activity with arousals with an index of 1.3 Cardiac analysis Average heart rate was 73 with a minimum heart rate of 69 and maximum heart rate of 76 Assessment Obstructive sleep apnea, moderate in severity with an AHI of 21.9, worse during REM sleep with an AHI during REM being as high as 62.1 Nocturnal oxygen desaturation secondary to above and the patient has a minimum pulse ox of 80% Chronic hypersomnia with, multifactorial, part related to her obstructive sleep apnea. Schizoaffective disorder/depression Restless leg syndrome, excessive. The patient continued with Requip and there is no sleep fragmentation related to. If the movement activity or restless leg Known history of obstructive sleep apnea with worsening disease severity. AHI was 13 back in 2007 Hypertension Hypothyroidism Mild asthma Hyperlipidemia Diabetes mellitus type 2 History of depression Plan Patient would benefit from CPAP therapy. The patient will be asked to come into the sleep center to undergo a CPAP titration for the appropriate adjustments of the pressure and the mask interface and we will proceed with treatment accordingly. Noted her symptoms are partially related to obstructive sleep apnea and I acknowledge the fact that the patient has other comorbidities contributing to her chronic fatigue and sleepiness.
== END 2024-01-10 05:40 | disposition home or self-care (01) ==
LOC: 3 N SLEEP 19:50
PROVIDERS: ATTEND Internal Medicine Critical Care Medicine
DX: G47.33 Obstructive sleep apnea (adult) (pediatric) (principal); G47.52 REM sleep behavior disorder; G47.36 Sleep related hypoventilation in conditions classified elsewhere; G47.10 Hypersomnia, unspecified; F25.9 Schizoaffective disorder, unspecified; F32.A Depression, unspecified; G25.81 Restless legs syndrome; I10 Essential (primary) hypertension; E03.9 Hypothyroidism, unspecified; J45.909 Unspecified asthma, uncomplicated; E11.9 Type 2 diabetes mellitus without complications; E78.5 Hyperlipidemia, unspecified; R53.82 Chronic fatigue, unspecified; Z79.899 Other long term (current) drug therapy; Z79.82 Long term (current) use of aspirin; Z79.84 Long term (current) use of oral hypoglycemic drugs; Z79.890 Hormone replacement therapy
CPT/HCPCS: 95810

== ENCOUNTER 2024-02-28 19:51 | Outpatient (CLI) | payer MEDICARE ==
--- NOTE | 2024-02-29 17:13 | P.PCN ---
Date of Procedure: 02/28/24 Operative Findings: CPAP titration report Date of service is 02/28/2024 Pertinent history This is a 68-year-old female patient diagnosed having obstructive sleep apnea with an AHI of 21 worse during REM sleep. The patient had nocturnal oxygen desaturations and chronic hypersomnia. She has also multiple comorbidities. She is coming in for CPAP titration. Physical findings The patient has a height of 5 feet and 7 inches, weight is 209 pounds with a body mass index of 32 Technical description The patient was studied using a standard complex polysomnography protocol that included recording of the 2 EKG, Central, occipital and frontal EEG, right and left outer canthus EOG, submental EMG, right and left anterior tibialis EMG, respiratory airflow by thermocouple and or pressure/flow transducer, respiratory efforts by abdominal and thoracic PVDF belts, oxygen saturation by cable oximetry. Position by observation synchronized the PSG. Stepwise CPAP titration was done to remains obstructive respiratory events. Equipment used: [employer]. Sleep characteristics The total recording duration was 426 minutes and the total sleep time was 369 minutes. The wake after sleep onset time was 25 minutes and the sleep efficiency was 86.6%. The patient's sleep latency was 31 minutes and the latest REM sleep was 229.0 minutes. The sleep architecture was catheterized by 5.8% stage I, 83% stage II, 0% stage III and 10% REM sleep. The patient had a total arousal index of 5 Respiratory analysis and CPAP titration The patient was started on CPAP therapy initially at a pressure 5 cm of water and pressure was gradually increased by increments of 1 cm to reach a maximum pressure of 9 cm of water. This was very successful titration. The patient was started in the supine and nonsupine body position and the patient was also studied and remained on room sleep. Pressure of 9 cm of water, the patient was effectively treated without any oxygen saturations. This was successful titration in general. No significant desaturations encountered Sleep continuity summary The patient had a total of 31 arousals with an index of 5.0. The respiratory arousal index was 0 Periodic movement events A total of 211 periodic limb movement was counted with an index of 34. There were only 2 periodic limb movements with arousals with an index of 0.3 Cardiac rates Average heart rate was 71 with a minimum heart rate of 68 and a maximum heart rate of 75 Assessment Obstructive sleep apnea moderate to severe with an AHI of 21. The patient underwent a successful CPAP titration. Nocturnal oxygen desaturations recovered with CPAP therapy Chronic hypersomnia secondary to above Schizoaffective disorder/depression Periodic limb movements with history of restless leg syndrome, currently on Requip without any associated with arousals Hypertension Hypothyroidism Mild bronchial asthma Diabetes mellitus type 2 Hyperlipidemia Depression Plan The patient will be started on CPAP therapy at a pressure of 8 cm of water. The patient will be given a C-Flex of 3. The patient will be offered the appr opriate mask interface. The patient will be given a AirFit F20 small size fullface mask. The patient was started CPAP therapy and the patient will see him back in the office in 30 to 90 days to assess clinical response and compliancy. Will continue to follow make further adjustments based on overall tolerability and clinical response.
== END 2024-02-29 05:35 | disposition home or self-care (01) ==
LOC: 3 N SLEEP 19:51
PROVIDERS: ATTEND Internal Medicine Critical Care Medicine
DX: G47.33 Obstructive sleep apnea (adult) (pediatric) (principal); G47.10 Hypersomnia, unspecified; F32.A Depression, unspecified; G47.61 Periodic limb movement disorder; G47.51 Confusional arousals; I10 Essential (primary) hypertension; E78.5 Hyperlipidemia, unspecified; J45.909 Unspecified asthma, uncomplicated; E11.9 Type 2 diabetes mellitus without complications; Z88.0 Allergy status to penicillin; Z88.5 Allergy status to narcotic agent; Z88.2 Allergy status to sulfonamides; Z91.048 Other nonmedicinal substance allergy status; Z79.84 Long term (current) use of oral hypoglycemic drugs
CPT/HCPCS: 95811

== ENCOUNTER → 2024-10-16 | Day surgery (SDC) | payer MEDICARE, OTHER ==
--- NOTE | 2024-10-15 21:40 | HP ---
HISTORY AND PHYSICAL Surgery is scheduled for 10/16/2024. HISTORY OF PRESENT ILLNESS: Jess Ayala is a 69-year-old patient seen with progressive right knee pain. We discussed options. She elected to proceed with right total knee arthroplasty. Consent was obtained. Medical clearance was provided by Dr. Villanueva. PAST MEDICAL HISTORY: Type 2 diabetes, hypertension, hypothyroidism, anxiety. PAST SURGICAL HISTORY: section. DAILY MEDICATIONS: 1. Tylenol. 2. Synthroid. ALLERGIES: Codeine. SOCIAL HISTORY: She denies tobacco use. PHYSICAL EVALUATION OF THE RIGHT KNEE: Her range of motion is -4/5 to 110 degrees. She has a mild effusion. Tenderness, medial joint line. Crepitus, medial patellofemoral compartments with range of motion. Pain with patellofemoral compression. Ligaments stable. Hip rotation is without pain. Distal neurovascular exam is intact. IMAGING STUDIES: Radiographs of the right knee revealed severe osteoarthritic changes. IMPRESSION: 1. Right knee osteoarthritis. 2. Xea-fajbgla-devfsutrt diabetes. 3. Hypothyroidism. PLAN: Right total knee arthroplasty. MMODL / IJN: [id number] /
[~2024-10-16] MED LIST changes: +ACETAMINOPHEN TAB 500 MG TAB PO PRN; -DEXAMETHASONE SOD PHOSPHATE 10 MG/ML 1 ML VIAL IV ONE; +DEXAMETHASONE SOD PHOSPHATE 4 MG/ML 1 ML VIAL IV ONE; +MELOXICAM 7.5 MG TAB PO PRN; -MIDAZOLAM 2 MG/2 ML VIAL IV PRN; -Pre Op ABX Message 1 EACH MISC MISCELLANE ONE; -SCOPOLAMINE 1.5MG/72HR PATCH TRANSDERM ONE; +TRANEXAMIC 1,000 MG/100ML-NACL 1,000 MG in SALINE 1 100ML.BAG IVPB PRN; +VANCOMYCIN 1,500 MG in SODIUM CHLORIDE 0.9% 500 ML 500 ML IVPB PRN
[2024-10-16 06:36] VITALS: BP 145/65; PULSE 76; RESP 16; TEMP 98.3
[2024-10-16] MEDS: IV FLUID CONTINUATION 1,000 ML IV ONE (06:40)
== END ==
LOC: OR 05:41
PROVIDERS: ATTEND Orthopaedic Surgery
DX: M17.11 Unilateral primary osteoarthritis, right knee (principal); Z53.9 Procedure and treatment not carried out, unspecified reason

== ENCOUNTER 2025-02-06 12:03 | Inpatient (IN) | payer MEDICARE, OTHER ==
[2025-02-06 12:55] LABS: Basophils # (A) 0.1 k/uL (0-0.2); Basophils % (A) 0 %; Eosinophils # (A) 0.5 k/uL (0-0.7); Eosinophils % (A) 2 %; HCT 32.7 % (34.0-46.0); HGB 10.1 gm/dL (11.4-16.0); Hypochromasia Moderate; Lymphocytes # (A) 2.4 k/uL (1.0-4.8); Lymphocytes % (A) 11 %; MCH 24.6 pg (25.0-35.0); MCHC 30.9 g/dL (31.0-37.0); MCV 79.5 fL (80.0-100.0); Monocytes # (A) 0.7 k/uL (0-1.0); Monocytes % (A) 3 %; Neutrophils # (A) 17.8 k/uL (1.3-7.7); Neutrophils % (A) 82 %; Platelet Count 651 k/uL (150-450); Poikilocytosis Slight; RBC 4.11 m/uL (3.80-5.40); WBC 21.9 k/uL (3.8-10.6)
[2025-02-06 13:05] LABS: ALT 87 U/L (4-34); AST 35 U/L (14-36); African American GFR (CKD) >90 (>60 ml/min/1.73 sqM); Albumin 3.6 g/dL (3.5-5.0); Alkaline Phosphatase 288 U/L (38-126); Anion Gap 14 mmol/L; Blood Urea Nitrogen 16 mg/dL (7-17); Calcium 9.5 mg/dL (8.4-10.2); Carbon Dioxide 25 mmol/L (22-30); Chloride 96 mmol/L (98-107); Glucose 209 mg/dL (74-99); Non-African American GFR(CKD) 85 (>60 ml/min/1.73 sqM); Potassium 4.5 mmol/L (3.5-5.1); Sodium 135 mmol/L (137-145); Total Bilirubin 0.4 mg/dL (0.2-1.3); Total Protein 6.4 g/dL (6.3-8.2)
--- NOTE | 2025-02-06 13:11 | XR ---
EXAMINATION TYPE: XR chest 2V DATE OF EXAM: 02/06/2025 CLINICAL INDICATION: Female, 69 years old with history of cough, TECHNIQUE: Frontal and lateral views of the chest are obtained. COMPARISON: Chest x-ray February 17, 2023 FINDINGS: Persistent low lung volumes. There is new lateral right midlung increased opacity. Persist ent moderate size hiatal hernia. The cardiac silhouette size is upper limits of normal. The osseous structures are intact. IMPRESSION: New suspected superior right lower lobe acute pneumonic infiltrate. [facility], , 02/06/2025 1:08 PM
[2025-02-06 13:16] LABS: INR 1.1 (<1.2); Partial Thromboplastin Time 22.8 sec (22.0-30.0); Prothrombin Time 11.7 sec (10.0-12.5)
--- NOTE | 2025-02-06 13:18 | P.HPOR ---
History of Present Illness H&P Date: 02/06/25 Chief Complaint: Right quadriceps tendon tear Patient is a 69-year-old female that was initially evaluated earlier this morning at our outpatient office for her right knee. She has a history of a total knee arthroplasty that was done in December 2024. Apparently the patient patient has had multiple falls over the last week or so. After being evaluated in the outpatient setting, it was determined she had a tear involving her right quadriceps tendon. I discussed treatment options with the patient at that time and recommended she report to [facility] for further medical management and plan for surgical intervention on 02/08/2025. I also did call the patient's daughter to get a better history and discussed treatment with her. Patient was a relatively poor historian when I came to her medical history, she has multiple medical comorbidities. Apparently she fell at home but was evaluated by an in-home nurse and there was little concern for an issue at that time. Patient then states on 02/04/2025 she fell getting out of her car while going to religious. She initially tried to go home but was unable to weight- bear and move the leg very much. She was evaluated at [facility] and underwent multiple imaging and lab test. The daughter had mentioned she is currently being treated for a urinary tract infection, there is also concerns for possible pneumonia. After exam in office, I felt that patient being at [facility] would be the best option for her current medical care. Besides the right knee, she has no other orthopedic complaints at this time. Patient had been doing rather well at her last office visit and since the fall has progressively been doing worse. Review of Systems Constitutional: Reports as per HPI Past Medical History Past Medical History: Chest Pain / Angina, Diabetes Mellitus, Eye Disorder, GERD/Reflux, Hyperlipidemia, Hypertension, Memory Impairment, Osteoarthritis (OA), Seizure Disorder, Sleep Apnea/CPAP/BIPAP, Thyroid Disorder Additional Past Medical History / Comment(s): pt daughter states pt no longer diabetic; neuropathy bilateral legs/feet, BETINA/uses CPAP, short term memory issues, past seizure many years ago associated with a psych medication, hypothyroid, sinus issues, varicose vein, stress incontinence/urgency, frequent UTIs, RLS, lightheaded/dizzy when rising at times, bilateral eye macular degeneration, hypothyroid. Last Myocardial Infarction Date:: 2016 History of Any Multi-Drug Resistant Organisms: VRE Date of last positivie culture/infection: 12/12/22 MDRO Source:: Urine Past Surgical History: Section, Orthopedic Surgery Additional Past Surgical History / Comment(s): D&C with hysteroscopy/colposcopy, surgery for deviated septum, EGD Past Anesthesia/Blood Transfusion Reactions: No Reported Reaction, Motion Sickness Past Psychological History: ADD/ADHD, Anxiety, Bipolar, Depression, Schizoaffective Disorder Smoking Status: Never smoker Past Alcohol Use History: None Reported Past Drug Use History: None Reported - Past Family History Father Family Medical History: CVA/TIA Additional Family Medical History / Comment(s): SMOKED AND ABUSED ETOH- AGE 78- FROM STROKE Mother Additional Family Medical History / Comment(s): CRONIC BRONCHITIS.REMOVED PART OF ONE LUNG d/t the bronchitis infection Medications and Allergies Home Medications Medication Instructions Recorded Confirmed Type Levothyroxine Sodium [Synthroid] 50 mcg PO DAILY@06/01/12/18/24 History Atorvastatin [Lipitor] 20 mg PO HS@199903/07/18 12/18/24 History lamoTRIgine [LaMICtal] 200 mg PO DAILY@79904/06/19 12/18/24 History atenoloL 12.5 mg PO DAILY@79912/22/20 12/18/24 History Omeprazole 20 mg PO DAILY@79901/23/21 12/13/24 History Ascorbic Acid [Vitamin C] 500 mg PO DAILY@79910/14/22 12/13/24 History Cholecalciferol [Vitamin D3 (25 50 mcg PO DAILY@79910/14/22 12/13/24 History Mcg = 1000 Iu)] Levocetirizine Dihydrochloride 5 mg PO DAILY@79911/20/22 12/18/24 History [Xyzal] Meloxicam [Mobic] 15 mg PO DAILY@79911/20/22 12/13/24 History oxyBUTYnin chloride [Ditropan] 5 mg PO BID@799,199911/20/22 12/18/24 History Ferrous Sulfate [Iron (65 MG 325 mg PO DAILY@79902/18/23 12/13/24 History Elemental)] LORazepam [Ativan] 0.25 mg PO DAILY 02/18/23 12/18/24 History gemfibroziL [Lopid] 600 mg PO AC-BID 02/18/23 12/18/24 History Cyanocobalamin [Vitamin B-12] 1,000 mcg PO DAILY 30 Days #60 tab 02/23/23 12/13/24 Rx amLODIPine [Norvasc] 5 mg PO DAILY 30 Days #30 tab 02/23/23 12/18/24 Rx Ammonium Lactate [Amlactin] 1 applic TOPICAL DAILY 10/11/24 12/18/24 History Buprenorphine [Butrans 7.5 MCG/HR] 1 patch TRANSDERM WEEKLY 10/11/24 12/18/24 History Capsaicin Cream [Trixaicin Cream] 1 applic TOPICAL BID 10/11/24 12/18/24 History DULoxetine HCL [Cymbalta] 40 mg PO BID 10/11/24 12/18/24 History Diclofenac Sodium [Diclofenac 1 applic TOPICAL QID PRN 10/11/24 12/18/24 History Sodium 1%] Menthol [Biofreeze] 1 applic TOPICAL BID PRN 10/11/24 12/13/24 History buPROPion XL [Wellbutrin XL] 150 mg PO DAILY 10/11/24 12/18/24 History haloperidoL [Haldol] 10 mg PO BID 10/11/24 12/18/24 History Acetylcysteine [Nac] 600 mg PO HS 10/12/24 12/18/24 History Albuterol Inhaler [Ventolin Hfa 1 - 2 puff INHALATION Q6H PRN 10/12/24 12/18/24 History Inhaler] Triamcinolone 0.1% Cream [Kenalog 1 applicatio TOPICAL BID PRN 10/12/24 12/18/24 History 0.1% Cream] methocarbamoL 750 mg PO TID PRN 10/12/24 12/18/24 History Aspirin [Adult Low Dose Aspirin EC] 81 mg PO DAILY 12/13/24 12/13/24 History Aspirin [Adult Low Dose Aspirin EC] 81 mg PO BID #60 tab 12/19/24 Rx HYDROcodone/APAP 7.5-325MG [[place] 1 - 2 each PO Q6HR PRN #32 tab 12/19/24 Rx 7.5] Sennosides/Docusate Sodium [Senna 1 each PO DAILY #20 capsule 12/19/24 Rx Plus 8.6-50 mg Softgel] Allergies Allergy/AdvReac Type Severity Reaction Status Date / Time amoxicillin Allergy Rash/Hives Verified 02/06/25 12:12 codeine Allergy Unknown Verified 02/06/25 12:12 Sulfa (Sulfonamide Allergy Unknown Verified 02/06/25 12:12 Antibiotics) sulfamethoxazole Allergy Rash/Hives Verified 02/06/25 12:12 [From Bactrim] thioridazine [From Mellaril] Allergy Unknown Verified 02/06/25 12:12 trimethoprim [From Bactrim] Allergy Rash/Hives Verified 02/06/25 12:12 Physical Examination Right lower extremity: Well-healed incision over the anterior aspect of the knee. There is an obvious effusion present. There is no erythema or areas of fluctuance appreciated. Defect appreciated in the quadriceps tendon region. She is unable to extend her knee at all. Her flexion is at about 115 degrees. She seems stable to both varus and valgus stress. Logroll maneuver reproduces no groin pain. Calf is soft, no tenderness with palpation. Sensory exam to light touch is intact throughout the extremity. Her [place] pedis pulses 2+. Results - Labs Labs: Abnormal Lab Results - Last 24 Hours (Table) 02/06/25 02/06/25 Range/Units 12:34 12:34 WBC 21.9 H (3.8-10.6) k/uL Hgb 10.1 L (11.4-16.0) gm/dL Hct 32.7 L (34.0-46.0) % MCV 79.5 L (80.0-100.0) fL MCH 24.6 L (25.0-35.0) pg MCHC 30.9 L (31.0-37.0) g/dL Plt Count 651 H (150-450) k/uL Neutrophils # 17.8 H (1.3-7.7) k/uL Sodium 135 L (137-145) mmol/L Chloride 96 L (98-107) mmol/L Glucose 209 H (74-99) mg/dL ALT 87 H (4-34) U/L Alkaline Phosphatase 288 H (38-126) U/L H & H 02/06/25 Range/Units 12:34 Hgb 10.1 L (11.4-16.0) gm/dL Hct 32.7 L (34.0-46.0) % Result Diagrams: 02/06/25 12:34 02/06/25 12:34 - Diagnostic results Knee x-ray: report reviewed, image reviewed (AP and lateral x-rays were reviewed from the outpatient setting from 02/06/2025. No acute fractures or dislocations. Patella Baha is noted. Effusion is also noted) Assessment and Plan Assessment: Right knee quadriceps tendon tear Status post recent falls History of right total knee arthroplasty Leukocytosis Possible UTI Possible pneumonia Multiple medical comorbidities Plan: Dr. Gorman was also able to discuss and examine patient today in office and recommended current treatment plan. Our plan is to proceed with surgical intervention, more specifically a right knee quadriceps tendon repair on 02/08/2025. I did contact the daughter in office today to discuss treatment options with her. She was the one that brought to my attention the possibility of her urinary tract infection. She was made aware that she would be taken over to the emergency room by the [facility] staff and she would be admitted under orthopedic care with other medical specialties following her. She is in good understanding and feels that this is the best option for treatment. Risk and benefits of the procedure were discussed with both the patient and daughter, this to include infection, blood loss, neurovascular injury, development of blood clots, inadequate healing of tissues, need for further ramon ana, pain and stiffness. They are in good understanding would like to proceed. I did discuss the case with the emergency room staff, recommendations for basic lab panel, insertion of urinary catheter and consult for internal medicine. Nonweightbearing right lower extremity GI DVT prophylaxis, pneumatic compression stockings. Will likely begin aspirin after surgery PT/OT evaluation after surgery Other medical recommendations appreciated Will continue to follow during hospital stay Time with Patient: Less than 30
[2025-02-06] MEDS: HYDROcodone/APAP 5-325MG 1 EACH TAB PO STA (13:41)
--- NOTE | 2025-02-06 14:01 | ED ---
General Adult HPI - General Chief complaint: Fall Stated complaint: fall Time Seen by Provider: 02/06/25 12:13 Source: patient, RN notes reviewed Mode of arrival: ambulatory Limitations: no limitations - History of Present Illness Initial comments: 69-year-old female presents emergency department from orthopedics office for had prior total knee replacement but has reported quadricep injury. Patient is scheduled for surgery on but is currently being treated for suspected pneumonia and UTI. Patient had multiple falls secondary to knee pain and weakness. She denies any significant head injury no loss conscious denies any neck pain denies any nausea vomit diarrhea constipation currently. - Related Data Home Medications Medication Instructions Recorded Confirmed Levothyroxine Sodium [Synthroid] 50 mcg PO DAILY 06/01/15 02/06/25 Atorvastatin [Lipitor] 20 mg PO HS 03/07/18 02/06/25 lamoTRIgine [LaMICtal] 200 mg PO DAILY 04/06/19 02/06/25 atenoloL 12.5 mg PO DAILY 12/22/20 02/06/25 Omeprazole 20 mg PO DAILY 01/23/21 02/06/25 Ascorbic Acid [Vitamin C] 500 mg PO DAILY 10/14/22 02/06/25 Levocetirizine Dihydrochloride 5 mg PO DAILY 11/20/22 02/06/25 [Xyzal] Meloxicam [Mobic] 15 mg PO DAILY 11/20/22 02/06/25 Ferrous Sulfate [Iron (65 MG 325 mg PO DAILY 02/18/23 02/06/25 Elemental)] LORazepam [Ativan] 0.25 mg PO DAILY 02/18/23 02/06/25 gemfibroziL [Lopid] 600 mg PO AC-BID 02/18/23 02/06/25 Ammonium Lactate [Amlactin] 1 applic TOPICAL DAILY 10/11/24 02/06/25 DULoxetine HCL [Cymbalta] 40 mg PO BID 10/11/24 02/06/25 Diclofenac Sodium [Diclofenac 1 applic TOPICAL QID PRN 10/11/24 02/06/25 Sodium 1%] Menthol [Biofreeze] 1 applic TOPICAL BID PRN 10/11/24 02/06/25 haloperidoL [Haldol] 10 mg PO BID 10/11/24 02/06/25 Albuterol Inhaler [Ventolin Hfa 2 puff INHALATION RT-QID PRN 10/12/24 02/06/25 Inhaler] Triamcinolone 0.1% Cream [Kenalog 1 applicatio TOPICAL BID PRN 10/12/24 02/06/25 0.1% Cream] Aspirin [Adult Low Dose Aspirin EC] 81 mg PO DAILY 12/13/24 02/06/25 Acetaminophen Tab [Tylenol] 650 mg PO TID PRN 02/06/25 02/06/25 Acetylcysteine 600mg Capsule 600 mg PO DAILY 02/06/25 02/06/25 Buprenorphine [Butrans 15 MCG/HR] 1 patch TRANSDERM WEEKLY 02/06/25 02/06/25 Capsaicin [Zostrix Hp] 1 applic TOPICAL BID 02/06/25 02/06/25 Cefdinir [Omnicef] 300 mg PO BID 02/06/25 02/06/25 Cyanocobalamin (Vitamin B-12) 1,000 mcg PO DAILY 02/06/25 02/06/25 [Vitamin B-12] Gabapentin/Lidocaine/Diclofenac 1 applic TOPICAL BID PRN 02/06/25 02/06/25 5%/5%/5% Gel HYDROcodone/APAP 5-325MG [[place] 1 tab PO BID PRN 02/06/25 02/06/25 5-325] Hydrocortisone Cream 1 applic TOPICAL DAILY PRN 02/06/25 02/06/25 [Hydrocortisone 1% Cream] Sennosides [Senokot] 8.6 mg PO DAILY 02/06/25 02/06/25 buPROPion XL [Wellbutrin XL] 300 mg PO DAILY 02/06/25 02/06/25 clindamycin HCL 600 mg PO DIRECTED PRN 02/06/25 02/06/25 Previous Rx's Medication Instructions Recorded amLODIPine [Norvasc] 5 mg PO DAILY 30 Days #30 tab 02/23/23 Allergies Allergy/AdvReac Type Severity Reaction Status Date / Time amoxicillin Allergy Rash/Hives Verified 02/06/25 13:31 codeine Allergy Unknown Verified 02/06/25 13:31 Penicillins Allergy Unknown Verified 02/06/25 13:31 Sulfa (Sulfonamide Allergy Unknown Verified 02/06/25 13:31 Antibiotics) sulfamethoxazole Allergy Rash/Hives Verified 02/06/25 13:31 [From Bactrim] thioridazine [From Mellaril] Allergy Unknown Verified 02/06/25 13:31 trimethoprim [From Bactrim] Allergy Rash/Hives Verified 02/06/25 13:31 Review of Systems ROS Statement: Those systems with pertinent positive or pertinent negative responses have been documented in the HPI. ROS Other: All systems not noted in ROS Statement are negative. Past Medical History Past Medical History: Chest Pain / Angina, Diabetes Mellitus, Eye Disorder, GERD/Reflux, Hyperlipidemia, Hypertension, Memory Impairment, Osteoarthritis (OA), Seizure Disorder, Sleep Apnea/CPAP/BIPAP, Thyroid Disorder Additional Past Medical History / Comment(s): pt daughter states pt no longer diabetic; neuropathy bilateral legs/feet, BETINA/uses CPAP, short term memory issues, past seizure many years ago associated with a psych medication, hypothyroid, sinus issues, varicose vein, stress incontinence/urgency, frequent UTIs, RLS, lightheaded/dizzy when rising at times, bilateral eye macular degeneration, hypothyroid. Last Myocardial Infarction Date:: 2016 History of Any Multi-Drug Resistant Organisms: VRE Date of last positivie culture/infection: 12/12/22 MDRO Source:: Urine Past Surgical History: Section, Orthopedic Surgery Additional Past Surgical History / Comment(s): D&C with hysteroscopy/colposcopy, surgery for deviated septum, EGD Past Anesthesia/Blood Transfusion Reactions: No Reported Reaction, Motion Sickness Past Psychological History: ADD/ADHD, Anxiety, Bipolar, Depression, Schizoaffective Disorder Smoking Status: Never smoker Past Alcohol Use History: None Reported Past Drug Use History: None Reported - Past Family History Father Family Medical History: CVA/TIA Additional Family Medical History / Comment(s): SMOKED AND ABUSED ETOH- AGE 78- FROM STROKE Mother Additional Family Medical History / Comment(s): CRONIC BRONCHITIS.REMOVED PART OF ONE LUNG d/t the bronchitis infection General Exam Limitations: no limitations General appearance: alert, in no apparent distress Head exam: Present: atraumatic, normocephalic, normal inspection Eye exam: Present: normal appearance, PERRL, EOMI. Absent: scleral icterus, conjunctival injection, periorbital swelling ENT exam: Present: normal exam, normal oropharynx, mucous membranes moist Neck exam: Present: normal inspection, full ROM. Absent: tenderness, meningismus, lymphadenopathy Respiratory exam: Present: normal lung sounds bilaterally. Absent: respiratory distress, wheezes, rales, rhonchi, stridor Cardiovascular Exam: Present: regular rate, normal rhythm, normal heart sounds. Absent: systolic murmur, diastolic murmur, rubs, gallop, clicks GI/Abdominal exam: Present: soft, normal bowel sounds. Absent: distended, tenderness, guarding, rebound, rigid Neurological exam: Present: alert, oriented X3 Course Vital Signs 02/06/25 12:07 Temperature 97.6 F Pulse Rate 80 Respiratory 20 Rate Blood Pressure 105/64 O2 Sat by Pulse 96 Oximetry EKG Findings - EKG Comments: EKG Findings:: EKG performed at 12: 34 sinus rhythm rate of 77 SD 173 QRS 89 QT/QTc 368/400 - EKG Results: EKG: interpreted by KATHLEEN Medical Decision Making - Medical Decision Making Was pt. sent in by a medical professional or institution (, PA, COMB WINDER, urgent care, hospital, or longterm...) When possible be specific @ -Orthopedics Did you speak to anyone other than the patient for history (EMS, parent, family, police, friend...)? What history was obtained from this source @ -No Did you review nursing and triage notes (agree or disagree)? Why? @ -I reviewed and agree with nursing and triage notes Were old charts reviewed (outside hosp., previous admission, EMS record, old EKG, old radiological studies, urgent care reports/EKG's, longterm records)? Report findings @ -No old charts were reviewed Differential Diagnosis (chest pain, altered mental status, abdominal pain women, abdominal pain men, vaginal bleeding, weakness, fever, dyspnea, syncope, headache, dizziness, GI bleed, back pain, seizure, CVA, palpatations, mental health, musculoskeletal)? @ -Pneumonia, UTI, weakness, knee pain EKG interpreted by me (3pts min.). @ -As above X-rays interpreted by me (1pt min.). @ -Chest x-ray shows evidence of pneumonia CT interpreted by me (1pt min.). @ -None done U/S interpreted by me (1pt. min.). @ -None done What testing was considered but not performed or refused? (CT, X-rays, U/S, labs)? Why? @ -None What meds were considered but not given or refused? Why? @ -None Did you discuss the management of the patient with other professionals (professionals i.e. , PA, COMB WINDER, lab, RT, psych nurse, licensed clinical social worker, mine inspector federal, teacher, customs officer, immigration case worker)? Give summary @ -Orthopedics for admission with consult to medicine Was smoking cessation discussed for >3mins.? @ -No Was critical care preformed (if so, how long)? @ -No Were there social determinants of health that impacted care today? How? (Homelessness, low income, unemployed, alcoholism, drug addiction, transportation, low edu. Level, literacy, decrease access to med. care, [place] [facility], rehab)? @ -No Was there de-escalation of care discussed even if they declined (Discuss DNR or withdrawal of care, Hospice)? DNR status @ -No What co-morbidities impacted this encounter? (DM, HTN, Smoking, COPD, CAD, Cancer, CVA, ARF, Chemo, Hep., AIDS, mental health diagnosis, sleep apnea, morbid obesity)? @ -None Was patient admitted / discharged? Hospital course, mention meds given and route, prescriptions, significant lab abnormalities, going to OR and other pertinent info. @ -Admitted patient scheduled for send multiple falls secondary stenosis acute head injury patient is currently on antibiotics there is evidence of pneumonia we will continue azithromycin and Rocephin. Undiagnosed new problem with uncertain prognosis? @ -No Drug Therapy requiring intensive monitoring for toxicity (Heparin, Nitro, Insulin, Cardizem)? @ -No Were any procedures done? @ -No Diagnosis/symptom? @ -Quadricep tendon injury, requiring repair, pneumonia, multiple falls, weakness Acute, or Chronic, or Acute on Chronic? @ -Acute Uncomplicated (without systemic symptoms) or Complicated (systemic symptoms)? @ -Complicated Side effects of treatment? @ -No Exacerbation, Progression, or Severe Exacerbation? @ -No Poses a threat to life or bodily function? How? (Chest pain, [place], [place], pneumonia, PE, COPD, DKA, ARF, appy, cholecystitis, CVA, Diverticulitis, Homicidal, Suicidal, threat to staff... and all critical care pts) @ -No - Lab Data Result diagrams: 02/06/25 12:34 02/06/25 12:34 Lab Results 04/12/0202/06/25 02/06/25 Range/Units 12:34 12:34 12:34 WBC 21.9 H (3.8-10.6) k/uL RBC 4.11 (3.80-5.40) m/uL Hgb 10.1 L (11.4-16.0) gm/dL Hct 32.7 L (34.0-46.0) % MCV 79.5 L (80.0-100.0) fL MCH 24.6 L (25.0-35.0) pg MCHC 30.9 L (31.0-37.0) g/dL RDW 14.0 (11.5-15.5) % Plt Count 651 H (150-450) k/uL MPV 7.0 Neutrophils % 82 % Lymphocytes % 11 % Monocytes % 3 % Eosinophils % 2 % Basophils % 0 % Neutrophils # 17.8 H (1.3-7.7) k/uL Lymphocytes # 2.4 (1.0-4.8) k/uL Monocytes # 0.7 (0-1.0) k/uL Eosinophils # 0.5 (0-0.7) k/uL Basophils # 0.1 (0-0.2) k/uL Hypochromasia Moderate Poikilocytosis Slight PT 11.7 (10.0-12.5) sec INR 1.1 (<1.2) APTT 22.8 (22.0-30.0) sec Sodium 135 L (137-145) mmol/L Potassium 4.5 (3.5-5.1) mmol/L Chloride 96 L (98-107) mmol/L Carbon Dioxide 25 (22-30) mmol/L Anion Gap 14 mmol/L BUN 16 (7-17) mg/dL Creatinine 0.74 (0.52-1.04) mg/dL Est GFR (CKD-EPI)AfAm >90 (>60 ml/min/1.73 sqM) Est GFR (CKD-EPI)NonAf 85 (>60 ml/min/1.73 sqM) Glucose 209 H (74-99) mg/dL Calcium 9.5 (8.4-10.2) mg/dL Total Bilirubin 0.4 (0.2-1.3) mg/dL AST 35 (14-36) U/L ALT 87 H (4-34) U/L Alkaline Phosphatase 288 H (38-126) U/L Total Protein 6.4 (6.3-8.2) g/dL Albumin 3.6 (3.5-5.0) g/dL Disposition Clinical Impression: Multiple falls, Pneumonia, Injury of quadriceps tendon Disposition: ADMITTED IP TO THIS HOSP Condition: Fair Referrals: Joaquin Villanueva MD [Primary Care Provider] - 1-2 days Time of Disposition: 15:02
[2025-02-06] MEDS: AZITHROMYCIN 500 MG in SODIUM CHLORIDE 0.9% 250 ML IVPB STA (14:49)
[2025-02-06] MEDS ORDERED: NALOXONE 0.4 MG/ML 1 ML VIAL IV PRN (14:59)
[2025-02-06] MEDS ORDERED: ALBUTEROL NEBULIZED 2.5 MG/3 ML INHALATION PRN (15:33)
[2025-02-06 16:33] LABS: Appearance,Urine Clear (Clear); Bilirubin,Urine Negative (Negative); Blood,Urine Negative (Negative); Color,Urine Light Yellow; Glucose,Urine (UA) Negative (Negative); Hyaline Casts,Urine 4 /lpf (0-2); Ketones,Urine Negative (Negative); Leukocyte Esterase,Urine Large (Negative); Mucus,Urine Rare /hpf; Nitrite,Urine Negative (Negative); Protein,Urine Trace (Negative); RBC,Urine 2 /hpf (0-5); Specific Gravity,Urine 1.019 (1.001-1.035); Squamous Epithelial Cell,Urine <1 /hpf (0-4); Urobilinogen,Urine <2.0 mg/dL (<2.0); WBC,Urine 58 /hpf (0-5)
--- NOTE | 2025-02-06 16:37 | P.CONS ---
History of Present Illness - Reason for Consult Consult date: 02/06/25 Medical Management - History of Present Illness History of present illness; 69-year-old female with a PMH of obstructive sleep apnea with utilization of CPAP, hypothyroidism, peripheral neuropathy currently undergoing treatment for a suspected pneumonia, who is presenting from the orthopedic surgery office after she was evaluated this morning. She underwent a total knee arthroplasty in December 2024, and was noted to have fallen multiple times over the past week or so. Upon evaluation was determined that she had a tear involving her right quadriceps tendon and she should present to [facility] for further me dical management with a plan for surgical intervention to occur on 02/08/25. She notes having had some cough as well as worsening dysuria and suprapubic tenderness. Patient reports absence of fever, chills, weight loss, chest pain, palpitations, diaphoresis, dyspnea, nausea, vomiting, constipation, diarrhea, abdominal pain, weakness, myalgia, dizziness and headache. Internal medicine was consulted for medical management. Initial lab workup revealed: -WBCs 21.9, hemoglobin 10.1, hematocrit 32.7, platelets 651; sodium 135, potassium 4.5, chloride 96, bicarb 24, BUN 16, creatinine 0.74, glucose 209, calcium 9.5, total bilirubin 0.4, AST 35, ALT 87, alkaline phosphatase 288 -EKG done in the ER independently interpreted showed heart rate of 77, sinus rhythm, no ST segment elevation or depression seen, no T-wave inversions seen. -Chest x-ray done independently interpreted in the ER showed new suspected superior right lower lobe acute pneumonic infiltrate REVIEW OF SYSTEMS: All systems reviewed, pertinent positives and negatives noted in HPI. All other symptoms are negative. PHYSICAL EXAMINATION: Vitals reviewed GENERAL: No acute distress. Well developed, well nourished. HEENT: Pupils are round and equally reacting to light. EOMI. No scleral icterus. Normocephalic, atraumatic. No pharyngeal erythema. No thyromegaly. CARDIOVASCULAR: S1 and S2 present. No murmurs, rubs, or gallops. PULMONARY: Chest is clear to auscultation, no wheezing, rhonchi, or crackles. ABDOMEN: Soft, nontender, nondistended, normoactive bowel sounds. No palpable organomegaly. suprapubic tenderness. MUSCULOSKELETAL: No apparent joint swelling and deformities. EXTREMITIES: No apparent cyanosis, clubbing, or pedal edema. Right knee tender to palpation on the superior aspect, as well as the medial and lateral aspects. 1+ pitting edema of the right lower extremity. NEUROLOGICAL: The patient is alert and oriented x3, Gross neurological examination did not reveal any focal deficits. 5/5 strength bilateral UE and LE. SKIN: No apparent rashes. Assessment and plan 69-year-old female with a PMH of obstructive sleep apnea with utilization of CPAP, hypothyroidism, peripheral neuropathy currently undergoing treatment for a suspected pneumonia and UTI, who is presenting from the orthopedic surgery office after she was evaluated this morning and found to have a tear in her right quadriceps tendon. #community-acquired pneumonia -Received one dose rocephin in the ED -Received one dose azithromycin in the ED -Continue with Rocephin 2 gm every 24 hours and Zithromax 500 mg daily for now -Blood cultures ordered, currently pending -Sputum culture ordered, currently pending -Legionella ordered, currently pending -Lactic acid ordered, currently pending #Possible UTI -History of MDRO UTIs -Suprapubic tenderness and dysuria -UA ordered, currently pending -Urine culture ordered, currently pending #Leukocytosis, possibly reactive -Continue to monitor CBC #Microcytic anemia, with history of iron deficiency -Continue to monitor CBC -Transfuse for Hgb <7 #Thrombocytosis, likely reactive -Continue to monitor CBC #Hyponatremia -Continue to monitor CMP #Transaminitis, possibly reactive -No endorse right upper quadrant pain -Continue to monitor CMP Chronic Medical Conditions #Hypertension -Resume home Norvasc 5 mg daily #Hyperlidemia -Resume home Atorvastatin 20 mg daily #Hypothyroidism -Resume home Synthroid 50 mcg daily #GERD -Resume home pantoprazole 40mg daily #Anxiety/Depression -Resume home medications #Right quadriceps tendon repair -Pain management and DVT prophylaxis per primary surgical team -Likely surgery on 02/08/2025 F: None E: Replete as needed N: Regular diet DVT ppx: per primary surgical team Code status: Full code Patient is stable from medical stand point Follow up CBC and CMP in AM Dictation was produced using [employer] dictation software. Please excuse any gra mmatical, word or spelling errors. Deniz Villareal MD PGY-1 IM I have seen and evaluated the patient today. Discussed with the resident and agree with the residents finding and plan as documented in the resident's note. Changes highlighted in blue font. Past Medical History Past Medical History: Chest Pain / Angina, Diabetes Mellitus, Eye Disorder, GERD/Reflux, Hyperlipidemia, Hypertension, Memory Impairment, Osteoarthritis (OA), Seizure Disorder, Sleep Apnea/CPAP/BIPAP, Thyroid Disorder Additional Past Medical History / Comment(s): pt daughter states pt no longer diabetic; neuropathy bilateral legs/feet, BETINA/uses CPAP, short term memory issues, past seizure many years ago associated with a psych medication, hypothyroid, sinus issues, varicose vein, stress incontinence/urgency, frequent UTIs, RLS, lightheaded/dizzy when rising at times, bilateral eye macular degeneration, hypothyroid. Last Myocardial Infarction Date:: 2016 History of Any Multi-Drug Resistant Organisms: VRE Year Discovered:: 12/12/22 MDRO Source:: Urine Past Surgical History: Section, Orthopedic Surgery Additional Past Surgical History / Comment(s): D&C with hysteroscopy/colposcopy, surgery for deviated septum, EGD Past Anesthesia/Blood Transfusion Reactions: No Reported Reaction, Motion Sickness Past Psychological History: ADD/ADHD, Anxiety, Bipolar, Depression, Schizoaffective Disorder Smoking Status: Never smoker Past Alcohol Use History: None Reported Past Drug Use History: None Reported - Past Family History Father Family Medical History: CVA/TIA Additional Family Medical History / Comment(s): SMOKED AND ABUSED ETOH- AGE 78- FROM STROKE Mother Additional Family Medical History / Comment(s): CRONIC BRONCHITIS.REMOVED PART OF ONE LUNG d/t the bronchitis infection Medications and Allergies Home Medications Medication Instructions Recorded Confirmed Type Levothyroxine Sodium [Synthroid] 50 mcg PO DAILY 06/01/15 02/06/25 History Atorvastatin [Lipitor] 20 mg PO HS 03/07/18 02/06/25 History lamoTRIgine [LaMICtal] 200 mg PO DAILY 04/06/19 02/06/25 History atenoloL 12.5 mg PO DAILY 12/22/20 02/06/25 History Omeprazole 20 mg PO DAILY 01/23/21 02/06/25 History Ascorbic Acid [Vitamin C] 500 mg PO DAILY 10/14/22 02/06/25 History Levocetirizine Dihydrochloride 5 mg PO DAILY 11/20/22 02/06/25 History [Xyzal] Meloxicam [Mobic] 15 mg PO DAILY 11/20/22 02/06/25 History Ferrous Sulfate [Iron (65 MG 325 mg PO DAILY 02/18/23 02/06/25 History Elemental)] LORazepam [Ativan] 0.25 mg PO DAILY 02/18/23 02/06/25 History gemfibroziL [Lopid] 600 mg PO AC-BID 02/18/23 02/06/25 History amLODIPine [Norvasc] 5 mg PO DAILY 30 Days #30 tab 02/23/23 02/06/25 Rx Ammonium Lactate [Amlactin] 1 applic TOPICAL DAILY 10/11/24 02/06/25 History DULoxetine HCL [Cymbalta] 40 mg PO BID 10/11/24 02/06/25 History Diclofenac Sodium [Diclofenac 1 applic TOPICAL QID PRN 10/11/24 02/06/25 History Sodium 1%] Menthol [Biofreeze] 1 applic TOPICAL BID PRN 10/11/24 02/06/25 History haloperidoL [Haldol] 10 mg PO BID 10/11/24 02/06/25 History Albuterol Inhaler [Ventolin Hfa 2 puff INHALATION RT-QID PRN 10/12/24 02/06/25 History Inhaler] Triamcinolone 0.1% Cream [Kenalog 1 applicatio TOPICAL BID PRN 10/12/24 02/06/25 History 0.1% Cream] Aspirin [Adult Low Dose Aspirin EC] 81 mg PO DAILY 12/13/24 02/06/25 History Acetaminophen Tab [Tylenol] 650 mg PO TID PRN 02/06/25 02/06/25 History Acetylcysteine 600mg Capsule 600 mg PO DAILY 02/06/25 02/06/25 History Buprenorphine [Butrans 15 MCG/HR] 1 patch TRANSDERM WEEKLY 02/06/25 02/06/25 History Capsaicin [Zostrix Hp] 1 applic TOPICAL BID 02/06/25 02/06/25 History Cefdinir [Omnicef] 300 mg PO BID 02/06/25 02/06/25 History Cyanocobalamin (Vitamin B-12) 1,000 mcg PO DAILY 02/06/25 02/06/25 History [Vitamin B-12] Gabapentin/Lidocaine/Diclofenac 1 applic TOPICAL BID PRN 02/06/25 02/06/25 History 5%/5%/5% Gel HYDROcodone/APAP 5-325MG [[place] 1 tab PO BID PRN 02/06/25 02/06/25 History 5-325] Hydrocortisone Cream 1 applic TOPICAL DAILY PRN 02/06/25 02/06/25 History [Hydrocortisone 1% Cream] Sennosides [Senokot] 8.6 mg PO DAILY 02/06/25 02/06/25 History buPROPion XL [Wellbutrin XL] 300 mg PO DAILY 02/06/25 02/06/25 History clindamycin HCL 600 mg PO DIRECTED PRN 02/06/25 02/06/25 History Allergies Allergy/AdvReac Type Severity Reaction Status Date / Time amoxicillin Allergy Rash/Hives Verified 02/06/25 13:31 codeine Allergy Unknown Verified 02/06/25 13:31 Penicillins Allergy Unknown Verified 02/06/25 13:31 Sulfa (Sulfonamide Allergy Unknown Verified 02/06/25 13:31 Antibiotics) sulfamethoxazole Allergy Rash/Hives Verified 02/06/25 13:31 [From Bactrim] thioridazine [From Mellaril] Allergy Unknown Verified 02/06/25 13:31 trimethoprim [From Bactrim] Allergy Rash/Hives Verified 02/06/25 13:31 Physical Exam Vitals: Vital Signs Temp Pulse Resp BP Pulse Ox 02/06/25 12:07 97.6 F 80 20 105/64 96 Intake and Output 02/06/25 02/06/25 02/06/25 06:59 14:59 22:59 Other: Weight 94.347 kg Results CBC & Chem 7: 02/06/25 12:34 02/06/25 12:34 Labs: Abnormal Lab Results - Last 24 Hours (Table) 02/06/25 02/06/25 Range/Units 12:34 12:34 WBC 21.9 H (3.8-10.6) k/uL Hgb 10.1 L (11.4-16.0) gm/dL Hct 32.7 L (34.0-46.0) % MCV 79.5 L (80.0-100.0) fL MCH 24.6 L (25.0-35.0) pg MCHC 30.9 L (31.0-37.0) g/dL Plt Count 651 H (150-450) k/uL Neutrophils # 17.8 H (1.3-7.7) k/uL Sodium 135 L (137-145) mmol/L Chloride 96 L (98-107) mmol/L Glucose 209 H (74-99) mg/dL ALT 87 H (4-34) U/L Alkaline Phosphatase 288 H (38-126) U/L
[2025-02-06] MEDS: FENOFIBRATE 160 MG TAB PO SCH (17:51)
[2025-02-06] MEDS: HYDROcodone/APAP 5-325MG 1 EACH TAB PO PRN (19:35)
[2025-02-06] MEDS: haloperidoL 5 MG TAB PO SCH (22:12)
[2025-02-06] MEDS: DULoxetine HCL 20 MG CAPSULE.DR PO SCH (22:12)
[2025-02-06] MEDS: ATORVASTATIN 20 MG TAB PO SCH (22:12)
[2025-02-06] MEDS: LACTATED RINGERS 1,000 ML IV ONE (23:41)
[2025-02-07] MEDS: LACTATED RINGERS 1,000 ML IV SCH (01:12)
[2025-02-07] MEDS: SODIUM CHLORIDE 0.9% 1,000 ML IV SCH (01:18)
[2025-02-07 04:12] LABS: Basophils # (A) 0.1 k/uL (0-0.2); Basophils % (A) 1 %; Eosinophils # (A) 0.4 k/uL (0-0.7); Eosinophils % (A) 3 %; HCT 28.1 % (34.0-46.0); Hypochromasia Moderate; Lymphocytes # (A) 2.2 k/uL (1.0-4.8); Lymphocytes % (A) 15 %; MCH 24.5 pg (25.0-35.0); MCHC 30.5 g/dL (31.0-37.0); MCV 80.2 fL (80.0-100.0); Monocytes # (A) 0.7 k/uL (0-1.0); Monocytes % (A) 5 %; Neutrophils # (A) 10.8 k/uL (1.3-7.7); Neutrophils % (A) 75 %; Platelet Count 499 k/uL (150-450); Poikilocytosis Slight; RDW 14.1 % (11.5-15.5); WBC 14.4 k/uL (3.8-10.6)
[2025-02-07 04:30] LABS: African American GFR (CKD) >90 (>60 ml/min/1.73 sqM); Albumin 2.5 g/dL (3.5-5.0); Anion Gap 6 mmol/L; Blood Urea Nitrogen 15 mg/dL (7-17); Calcium 8.7 mg/dL (8.4-10.2); Carbon Dioxide 28 mmol/L (22-30); Chloride 101 mmol/L (98-107); Glucose 211 mg/dL (74-99); Non-African American GFR(CKD) 90 (>60 ml/min/1.73 sqM); Potassium 4.2 mmol/L (3.5-5.1); Sodium 135 mmol/L (137-145); Total Protein 4.9 g/dL (6.3-8.2)
[2025-02-07 04:31] LABS: ALT 57 U/L (4-34); AST 25 U/L (14-36); Alkaline Phosphatase 210 U/L (38-126); Globulin 2.4 g/dL; Total Bilirubin 0.2 mg/dL (0.2-1.3)
[2025-02-07 04:43] LABS: HGB 8.6 gm/dL (11.4-16.0)
[2025-02-07] MEDS: LEVOTHYROXINE 50 MCG TAB PO SCH (06:09)
[2025-02-07] MEDS: AZITHROMYCIN 500 MG in SODIUM CHLORIDE 0.9% 250 ML IVPB SCH (08:55)
[2025-02-07] MEDS: amLODIPine 5 MG TAB PO SCH (08:56)
[2025-02-07] MEDS: SENNOSIDES 8.6 MG TAB PO SCH (08:56)
[2025-02-07] MEDS: PANTOPRAZOLE 40 MG TABLET PO SCH (08:56)
[2025-02-07] MEDS: buPROPion XL 300 MG TAB.ER.24H PO SCH (08:56)
[2025-02-07] MEDS: LORazepam 0.5 MG TAB PO SCH (08:56)
[2025-02-07] MEDS: LORATADINE 10 MG TAB PO SCH (08:56)
[2025-02-07] MEDS: lamoTRIgine 100 MG TAB PO SCH (08:56)
--- NOTE | 2025-02-07 10:39 | P.PN ---
Subjective Progress Note Date: 02/07/25 Principal diagnosis: Right knee quadriceps tendon tear, history of right total knee arthroplasty, other medical comorbidities Patient evaluated at bedside, she is resting in her hospital bed. She does note right knee pain with movement. She is being followed by internal medicine, multiple lab tests have been ordered for further medical management. Discussed with nursing today at bedside urinary catheter placement for her current immobilized state and upcoming surgery. Hemoglobin was noted significant drop overnight, rechecking on 02/08/2025, may transfuse 1 unit of packed RBCs prior to surgery pending hemoglobin result. She has no headaches, chest pain, shortness of breath, nausea or vomiting at this time. Objective - Vital Signs Vital signs: Vital Signs Temp 97.2 F L 02/07/25 07:12 Pulse 84 02/07/25 07:12 Resp 16 02/07/25 07:12 BP 117/68 02/07/25 07:12 Pulse Ox 94 L 02/07/25 07:12 FiO2 Intake & Output 02/06/25 02/07/25 02/07/25 18:59 06:59 18:59 Intake Total 540 Output Total 1100 Balance -560 Weight 94.347 kg 94.347 kg Intake: Oral 540 Output: Urine 1100 Other: Voiding Method Bedside Commode # Voids 1 - Exam Right lower extremity: Well-healed incision over the anterior aspect of the knee. There is an obvious effusion present. There is no erythema or areas of fluctuance appreciated. Defect appreciated in the quadriceps tendon region. She is unable to extend her knee at all. Her flexion is at about 115 degrees. She seems stable to both varus and valgus stress. Logroll maneuver reproduces no groin pain. Calf is soft, no tenderness with palpation. Sensory exam to light touch is intact throughout the extremity. Her [place] pedis pulses 2+. - Labs CBC & Chem 7: 02/07/25 03:12 02/07/25 03:12 Labs: Abnormal Lab Results - Last 24 Hours (Table) 02/06/25 02/06/25 02/06/25 Range/Units 12:34 12:34 16:12 WBC 21.9 H (3.8-10.6) k/uL RBC (3.80-5.40) m/uL Hgb 10.1 L (11.4-16.0) gm/dL Hct 32.7 L (34.0-46.0) % MCV 79.5 L (80.0-100.0) fL MCH 24.6 L (25.0-35.0) pg MCHC 30.9 L (31.0-37.0) g/dL Plt Count 651 H (150-450) k/uL Neutrophils # 17.8 H (1.3-7.7) k/uL Sodium 135 L (137-145) mmol/L Chloride 96 L (98-107) mmol/L Glucose 209 H (74-99) mg/dL Plasma Lactic Acid Homer (0.7-2.0) mmol/L ALT 87 H (4-34) U/L Alkaline Phosphatase 288 H (38-126) U/L Total Protein (6.3-8.2) g/dL Albumin (3.5-5.0) g/dL Urine Protein Trace H (Negative) Ur Leukocyte Esterase Large H (Negative) Urine WBC 58 H (0-5) /hpf Hyaline Casts 4 H (0-2) /lpf Urine Mucus Rare H (None) /hpf 02/06/25 02/07/25 02/07/25 Range/Units 16:45 03:12 03:12 WBC 14.4 H (3.8-10.6) k/uL RBC 3.50 L (3.80-5.40) m/uL Hgb 8.6 L D (11.4-16.0) gm/dL Hct 28.1 L (34.0-46.0) % MCV (80.0-100.0) fL MCH 24.5 L (25.0-35.0) pg MCHC 30.5 L (31.0-37.0) g/dL Plt Count 499 H (150-450) k/uL Neutrophils # 10.8 H (1.3-7.7) k/uL Sodium 135 L (137-145) mmol/L Chloride (98-107) mmol/L Glucose 211 H (74-99) mg/dL Plasma Lactic Acid Homer 3.1 H* (0.7-2.0) mmol/L ALT 57 H (4-34) U/L Alkaline Phosphatase 210 H (38-126) U/L Total Protein 4.9 L (6.3-8.2) g/dL Albumin 2.5 L (3.5-5.0) g/dL Urine Protein (Negative) Ur Leukocyte Esterase (Negative) Urine WBC (0-5) /hpf Hyaline Casts (0-2) /lpf Urine Mucus (None) /hpf Assessment and Plan Assessment: Right knee quadriceps tendon tear Status post recent falls History of right total knee arthroplasty Leukocytosis Possible UTI Possible pneumonia Multiple medical comorbidities Plan: Pain control, continue current medications Nonweightbearing right lower extremity Urinary catheter placement N.p.o. after midnight GI DVT prophylaxis, pneumatic compression stockings. Will likely begin aspirin after surgery PT/OT evaluation after surgery Other medical recommendations appreciated Surgery scheduled for 02/08/2025, will continue to follow during hospital stay Time with Patient: Less than 30
--- NOTE | 2025-02-07 11:52 | P.PN ---
Subjective Progress Note Date: 02/07/25 69-year-old female with a PMH of obstructive sleep apnea with utilization of CPAP, hypothyroidism, peripheral neuropathy currently undergoing treatment for a suspected pneumonia, who is presenting from the orthopedic surgery office after she was evaluated this morning. She underwent a total knee arthroplasty in December 2024, and was noted to have fallen multiple times over the past week or so. Upon evaluation was determined that she had a tear involving her right quadriceps tendon and she should present to [facility] for further medical management with a plan for surgical intervention to occur on 02/08/25. She notes having had some cough as well as worsening dysuria and suprapubic tenderne ss. Patient reports absence of fever, chills, weight loss, chest pain, palpitations, diaphoresis, dyspnea, nausea, vomiting, constipation, diarrhea, abdominal pain, weakness, myalgia, dizziness and headache. Internal medicine was consulted for medical management. 02/07 - She is seen at bedside this morning, now on the fourth floor. She had no acute events overnight, and has no complaints this morning. Urine, blood, sputum culture all ordered, remain pending at this time. Labs this morning jaydon cating improvement in her leukocytosis. However worsening in her anemia. REVIEW OF SYSTEMS: Pertinent positives and negatives noted in HPI. Physical Exam: Vitals reviewed GENERAL: No acute distress. Well developed, well nourished. HEENT: Pupils are round and equally reacting to light. EOMI. No scleral icterus. Normocephalic, atraumatic. No pharyngeal erythema. No thyromegaly. CARDIOVASCULAR: S1 and S2 present. No murmurs, rubs, or gallops. PULMONARY: Chest is clear to auscultation, no wheezing, rhonchi, or crackles. ABDOMEN: Soft, nontender, nondistended, normoactive bowel sounds. No palpable organomegaly. suprapubic tenderness. MUSCULOSKELETAL: No apparent joint swelling and deformities. EXTREMITIES: No apparent cyanosis, clubbing, or pedal edema. Right knee tender to palpation on the superior aspect, as well as the medial and lateral aspects. 1+ pitting edema of the right lower extremity. NEUROLOGICAL: The patient is alert and oriented x3, Gross neurological examination did not reveal any focal deficits. 5/5 strength bilateral UE and LE. SKIN: No apparent rashes. Data Received Today: Labs: WBCs 14.4, hemoglobin 8.6, hematocrit 28.1, platelet 499; sodium 135, potassium 4.2, BUN 15, creatinine 0.70, calcium 8.7, AST 25, ALT 57, alkaline phosphatase 210 Imagining: No new imaging today Assessment and plan 69-year-old female with a PMH of obstructive sleep apnea with utilization of CPAP, hypothyroidism, peripheral neuropathy currently undergoing treatment for a suspected pneumonia and UTI, who is presenting from the orthopedic surgery office after she was evaluated this morning and found to have a tear in her right quadriceps tendon. #community-acquired pneumonia -Received one dose rocephin in the ED -Received one dose azithromycin in the ED -Continue with Rocephin 2 gm every 24 hours and Zithromax 500 mg daily for now -Blood cultures ordered, currently pending -Sputum culture ordered, currently pending -Legionella ordered, currently pending -Lactic acid ordered, currently pending -Procalcitonin 0.09 #Possible UTI -History of MDRO UTIs -Suprapubic tenderness and dysuria -UA ordered, currently pending -Urine culture ordered, currently pending -Orthopedic surgery team may consider the insertion of Espinoza catheter prior to surgery #Leukocytosis, possibly reactive -Continue to monitor CBC #Microcytic anemia, with history of iron deficiency -Continue to monitor CBC, hemoglobin this morning 8.6 as compared to 10.1 yesterday -Per orthopedic surgery team, may transfuse 1 unit PRBC prior to surgery -Transfuse for Hgb <7 -Iron studies ordered, currently pending along with reticulocyte count #Thrombocytosis, likely reactive -Continue to monitor CBC #Hyponatremia -Continue to monitor CMP #Transaminitis, possibly reactive, improving -No endorse right upper quadrant pain -Continue to monitor CMP Chronic Medical Conditions #Hypertension -Resume home Norvasc 5 mg daily #Hyperlidemia -Resume home Atorvastatin 20 mg daily #Hypothyroidism -Resume home Synthroid 50 mcg daily #GERD -Resume home pantoprazole 40mg daily #Anxiety/Depression -Resume home medications #Right quadriceps tendon repair -Pain management and DVT prophylaxis per primary surgical team -Likely surgery on 02/08/2025 NSQIP risk assessment: -Any complication: 4.2% -Cardiac complication 0.2% -Risk of : 0.6% Patient is medically optimized for surgery at this time. DVT ppx: Per the surgery team Code status: Full code F: LR 75 cc/h E: Replete as needed N: Regular diet, n.p.o. after midnight A: Ambulatory Anticipated discharge place: Pending clinical course Anticipated discharge time: Pending clinical course Dictation was produced using [employer] dictation software. please excuse any grammatical, word or spelling errors. Deniz Villareal MD PGY-1 IM Thank you for allowing us to participate in the care of this pleasant patient. Do not hesitate to contact us with questions. Someone can be reached from the [facility] [place] hospitalist group all hours of the day at [phone] or via [employer]. I have seen and evaluated the patient today. Discussed with the resident and agree with the residents finding and plan as documented in the resident's note. Changes highlighted in blue font. Objective - Vital Signs Vital signs: Vital Signs Temp 97.2 F L 02/07/25 07:12 Pulse 84 02/07/25 07:12 Resp 16 02/07/25 07:12 BP 117/68 02/07/25 07:12 Pulse Ox 94 L 02/07/25 07:12 FiO2 Intake & Output 02/06/25 02/07/25 02/07/25 18:59 06:59 18:59 Intake Total 540 Output Total 1100 Balance -560 Weight 94.347 kg 94.347 kg Intake: Oral 540 Output: Urine 1100 Other: Voiding Method Bedside Commode # Voids 1 - Labs CBC & Chem 7: 02/07/25 03:12 02/07/25 03:12 Labs: Abnormal Lab Results - Last 24 Hours (Table) 02/06/25 02/06/25 02/06/25 Range/Units 12:34 12:34 16:12 WBC 21.9 H (3.8-10.6) k/uL RBC (3.80-5.40) m/uL Hgb 10.1 L (11.4-16.0) gm/dL Hct 32.7 L (34.0-46.0) % MCV 79.5 L (80.0-100.0) fL MCH 24.6 L (25.0-35.0) pg MCHC 30.9 L (31.0-37.0) g/dL Plt Count 651 H (150-450) k/uL Neutrophils # 17.8 H (1.3-7.7) k/uL Sodium 135 L (137-145) mmol/L Chloride 96 L (98-107) mmol/L Glucose 209 H (74-99) mg/dL Plasma Lactic Acid Homer (0.7-2.0) mmol/L ALT 87 H (4-34) U/L Alkaline Phosphatase 288 H (38-126) U/L Total Protein (6.3-8.2) g/dL Albumin (3.5-5.0) g/dL Urine Protein Trace H (Negative) Ur Leukocyte Esterase Large H (Negative) Urine WBC 58 H (0-5) /hpf Hyaline Casts 4 H (0-2) /lpf Urine Mucus Rare H (None) /hpf 02/06/25 02/07/25 02/07/25 Range/Units 16:45 03:12 03:12 WBC 14.4 H (3.8-10.6) k/uL RBC 3.50 L (3.80-5.40) m/uL Hgb 8.6 L D (11.4-16.0) gm/dL Hct 28.1 L (34.0-46.0) % MCV (80.0-100.0) fL MCH 24.5 L (25.0-35.0) pg MCHC 30.5 L (31.0-37.0) g/dL Plt Count 499 H (150-450) k/uL Neutrophils # 10.8 H (1.3-7.7) k/uL Sodium 135 L (137-145) mmol/L Chloride (98-107) mmol/L Glucose 211 H (74-99) mg/dL Plasma Lactic Acid Homer 3.1 H* (0.7-2.0) mmol/L ALT 57 H (4-34) U/L Alkaline Phosphatase 210 H (38-126) U/L Total Protein 4.9 L (6.3-8.2) g/dL Albumin 2.5 L (3.5-5.0) g/dL Urine Protein (Negative) Ur Leukocyte Esterase (Negative) Urine WBC (0-5) /hpf Hyaline Casts (0-2) /lpf Urine Mucus (None) /hpf
[2025-02-07 12:39] LABS: Glucose,Whole Blood 218 mg/dL (70-110)
[2025-02-07] MEDS: INSULIN LISPRO (HumaLOG) 100 UNIT/ML 10 mL VL SQ SCH (12:41)
[2025-02-07 14:59] LABS: Reticulocyte % 1.93 % (0.10-1.80)
[2025-02-07 15:17] LABS: % Iron Saturation 10.2 (12.00-45.00)
[2025-02-07 16:17] LABS: Glucose,Whole Blood 124 mg/dL (70-110)
[2025-02-07] MEDS: BUTRANS 15 MCG/HR TRANSDERM SCH ×2 (16:20→16:23)
[2025-02-07 21:01] LABS: Glucose,Whole Blood 136 mg/dL (70-110)
[2025-02-08 06:48] LABS: Glucose,Whole Blood 147 mg/dL (70-110)
[2025-02-08 08:45] LABS: Basophils % (A) 0.7 %; Eosinophils # (A) 0.42 X 10*3/uL (0.04-0.35); Eosinophils % (A) 2.8 %; HCT 29.6 % (37.2-46.3); HGB 9.1 g/dL (12.0-15.0); Lymphocytes # (A) 2.62 X 10*3/uL (0.90-5.00); Lymphocytes % (A) 17.6 %; MCH 24.9 pg (27.0-32.0); MCHC 30.7 g/dL (32.0-37.0); MCV 81.1 FL (80.0-97.0); Mean Platelet Volume 8.8 FL (9.5-12.2); Monocytes # (A) 0.72 X 10*3/uL (0.20-1.00); Monocytes % (A) 4.8 %; NRBC Per 100 WBC 0 X 10*3/uL (0.00-0.01); Neutrophils # (A) 10.85 X 10*3/uL (1.80-7.70); Neutrophils % (A) 72.8 %; Platelet Count 468 X 10*3/uL (140-440); RBC 3.65 X 10*6/uL (4.10-5.20); RDW 13.9 % (11.5-14.5); WBC 14.91 X 10*3/uL (4.50-10.00)
[2025-02-08 09:35] LABS: Basophils # (A) 0.1 k/uL (0-0.2); Basophils % (A) 0 %; Eosinophils # (A) 0.4 k/uL (0-0.7); Eosinophils % (A) 3 %; HGB 9.3 gm/dL (11.4-16.0); Hypochromasia Moderate; Lymphocytes # (A) 2.1 k/uL (1.0-4.8); Lymphocytes % (A) 14 %; MCH 24.2 pg (25.0-35.0); MCHC 30.8 g/dL (31.0-37.0); MCV 78.5 fL (80.0-100.0); Mean Platelet Volume 6.5; Monocytes # (A) 0.5 k/uL (0-1.0); Monocytes % (A) 3 %; Neutrophils # (A) 11.7 k/uL (1.3-7.7); Neutrophils % (A) 78 %; Platelet Count 526 k/uL (150-450); RBC 3.82 m/uL (3.80-5.40); RDW 14.3 % (11.5-15.5)
[2025-02-08 11:15] LABS: Glucose,Whole Blood 146 mg/dL (70-110)
--- NOTE | 2025-02-08 11:36 | P.PN ---
Subjective Progress Note Date: 02/08/25 69-year-old female with a PMH of obstructive sleep apnea with utilization of CPAP, hypothyroidism, peripheral neuropathy currently undergoing treatment for a suspected pneumonia, who is presenting from the orthopedic surgery office after she was evaluated this morning. She underwent a total knee arthroplasty in December 2024, and was noted to have fallen multiple times over the past week or so. Upon evaluation was determined that she had a tear involving her right quadriceps tendon and she should present to [facility] for further medical management with a plan for surgical intervention to occur on 02/08/25. She notes having had some cough as well as worsening dysuria and suprapubic tenderne ss. Patient reports absence of fever, chills, weight loss, chest pain, palpitations, diaphoresis, dyspnea, nausea, vomiting, constipation, diarrhea, abdominal pain, weakness, myalgia, dizziness and headache. Internal medicine was consulted for medical management. 02/07 - She is seen at bedside this morning, now on the fourth floor. She had no acute events overnight, and has no complaints this morning. Urine, blood, sputum culture all ordered, remain pending at this time. Labs this morning jaydon cating improvement in her leukocytosis. However worsening in her anemia. 02/08 - She is seen and examined at bedside this morning. She had no acute events overnight, and has no complaints morning. Continues to endorse some pain on the superior aspect as well as medial and lateral aspects of her right knee. REVIEW OF SYSTEMS: Pertinent positives and negatives noted in HPI. Physical Exam: Vitals reviewed GENERAL: No acute distress. Well developed, well nourished. HEENT: Pupils are round and equally reacting to light. EOMI. No scleral icterus. Normocephalic, atraumatic. No pharyngeal erythema. No thyromegaly. CARDIOVASCULAR: S1 and S2 present. No murmurs, rubs, or gallops. PULMONARY: Chest is clear to auscultation, no wheezing, rhonchi, or crackles. ABDOMEN: Soft, nontender, nondistended, normoactive bowel sounds. No palpable organomegaly. suprapubic tenderness. MUSCULOSKELETAL: No apparent joint swelling and deformities. EXTREMITIES: No apparent cyanosis, clubbing, or pedal edema. Right knee tender to palpation on the superior aspect, as well as the medial and lateral aspects. 1+ pitting edema of the right lower extremity. NEUROLOGICAL: The patient is alert and oriented x3, Gross neurological examination did not reveal any focal deficits. 5/5 strength bilateral UE and LE. SKIN: No apparent rashes. Data Received Today: Labs: WBCs 14.91, hemoglobin 9.1, hematocrit 29.6, platelet 468 -Iron studies showed: Iron 20, TIBC 196, 10.2% saturation, transferrin 141, ferritin 323, reticulocyte count 1.93 -Hemoglobin A1c 7.2 Imagining: No new imaging today Assessment and plan 69-year-old female with a PMH of obstructive sleep apnea with utilization of CPAP, hypothyroidism, peripheral neuropathy currently undergoing treatment for a suspected pneumonia and UTI, who is presenting from the orthopedic surgery office after she was evaluated this morning and found to have a tear in her right quadriceps tendon. #community-acquired pneumonia -Completed antibiotic course -Blood cultures preliminarily negative -Sputum culture ordered, currently pending -Legionella ordered, currently pending #Possible UTI -History of MDRO UTIs -No longer complaining of suprapubic tenderness and dysuria -Urine culture preliminarily negative -Antibiotics discontinued; received in total 6-7 days of antibiotics including oral antibiotics prior to arrival and IV antibiotics during admission -Orthopedic surgery team may consider the insertion of Espinoza catheter prior to surgery #Leukocytosis, possibly reactive -Continue to monitor CBC #Microcytic anemia, with history of iron deficiency -Continue to monitor CBC, hemoglobin this morning 8.6 as compared to 10.1 yesterday -Per orthopedic surgery team, may transfuse 1 unit PRBC prior to surgery -Transfuse for Hgb <7 -Iron studies ordered, currently pending along with reticulocyte count #Thrombocytosis, likely reactive -Continue to monitor CBC #Hyponatremia -Continue to monitor CMP #Transaminitis, possibly reactive, improving -No endorse right upper quadrant pain -Continue to monitor CMP Chronic Medical Conditions #[id number]-ieotcixor type 2 diabetes mellitus -Accu-Cheks -Hemoglobin A1c 7.2 -Sliding scale initiated -Monitor for hypoglycemia #Hypertension -Resume home Norvasc 5 mg daily #Hyperlidemia -Resume home Atorvastatin 20 mg daily #Hypothyroidism -Resume home Synthroid 50 mcg daily #GERD -Resume home pantoprazole 40mg daily #Anxiety/Depression -Resume home medications #Right quadriceps tendon repair -Pain management and DVT prophylaxis per primary surgical team -Likely surgery on 02/08/2025 NSQIP risk assessment: -Any complication: 4.2% -Cardiac complication 0.2% -Risk of : 0.6% Patient is medically optimized for surgery at this time. DVT ppx: Per the surgery team Code status: Full code F: LR 75 cc/h E: Replete as needed N: Regular diet, n.p.o. after midnight A: Ambulatory Anticipated discharge place: Pending clinical course Anticipated discharge time: Pending clinical course Dictation was produced using [employer] dictation software. please excuse any grammatical, word or spelling errors. Deniz Villareal MD PGY-1 IM I have seen and evaluated the patient today. Discussed with the resident and agree with the residents finding and plan as documented in the resident's note. Changes highlighted in blue font. Objective - Vital Signs Vital signs: Vital Signs Temp 97.8 F 02/08/25 01:02 Pulse 78 02/08/25 01:02 Resp 14 02/08/25 01:02 BP 114/72 02/08/25 01:02 Pulse Ox 94 L 02/08/25 01:02 FiO2 Intake & Output 02/07/25 02/08/25 02/08/25 18:59 06:59 18:59 Intake Total 540 Output Total 5 2300 Balance -5 -1760 Intake: Oral 540 Output: Urine 5 2300 Uretheral (Espinoza) 5 Other: Voiding Method Bedside Commode Bedside Commode # Voids 5 # Bowel Movements 2 - Labs CBC & Chem 7: 02/08/25 09:27 02/07/25 03:12 Labs: Abnormal Lab Results - Last 24 Hours (Table) 02/07/25 02/07/25 02/07/25 Range/Units 10:50 10:50 10:50 Retic Count 1.93 H (0.10-1.80) % POC Glucose (mg/dL) (70-110) mg/dL Hemoglobin A1c (<=6.0) % Iron 20 L (50-170) UG/DL TIBC 196 L (228-460) UG/DL % Saturation 10.20 L (12.00-45.00) Transferrin 140.0 L 141.0 L (204.0-354.0) mg/dL Ferritin 323.0 H (10.0-291.0) ng/mL 02/07/25 02/07/25 02/07/25 Range/Units 10:50 12:38 16:15 Retic Count (0.10-1.80) % POC Glucose (mg/dL) 218 H 124 H (70-110) mg/dL Hemoglobin A1c 7.2 H (<=6.0) % Iron (50-170) UG/DL TIBC (228-460) UG/DL % Saturation (12.00-45.00) Transferrin (204.0-354.0) mg/dL Ferritin (10.0-291.0) ng/mL 02/07/25 02/08/25 Range/Units 20:59 06:47 Retic Count (0.10-1.80) % POC Glucose (mg/dL) 136 H 147 H (70-110) mg/dL Hemoglobin A1c (<=6.0) % Iron (50-170) UG/DL TIBC (228-460) UG/DL % Saturation (12.00-45.00) Transferrin (204.0-354.0) mg/dL Ferritin (10.0-291.0) ng/mL Microbiology - Last 24 Hours (Table) 02/06/25 14:05 Blood Culture - Preliminary Blood 02/06/25 16:12 Urine Culture - Preliminary Urine,Voided
[2025-02-08] MEDS: IV FLUID CONTINUATION 1,000 ML IV ONE ×2 (14:04→17:41)
[2025-02-08 14:27] LABS: Glucose,Whole Blood 123 mg/dL (70-110)
[2025-02-08] MEDS: ONDANSETRON 4 MG/2 ML VIAL IVP STA (14:34)
[2025-02-08] MEDS: DEXAMETHASONE SOD PHOSPHATE 4 MG/ML 1 ML VIAL IVP STA (14:35)
[2025-02-08] MEDS ORDERED: ROCURONIUM 10 MG/ML (5 ML VIAL) IV ONE (14:59)
[2025-02-08] MEDS ORDERED: fentaNYL (PF) 50 MCG/ML 2 ML AMP ONE (14:59)
[2025-02-08] MEDS ORDERED: LIDOCAINE 1% INJ 10MG/ML (20 ML MDV) ONE (14:59)
[2025-02-08] MEDS ORDERED: NEOSTIGMINE 1 MG/ML 10 ML VIAL ONE (14:59)
[2025-02-08] MEDS ORDERED: GLYCOPYRROLATE 0.2 MG/ML 2 ML VIAL ONE (14:59)
[2025-02-08] MEDS ORDERED: SUCCINYLCHOLINE CHLORIDE 200 MG/10 ML VIAL IV ONE (14:59)
[2025-02-08] MEDS ORDERED: PROPOFOL 10 MG/ML 20 ML VIAL IV ONE (14:59)
[2025-02-08] MEDS ORDERED: MIDAZOLAM 2 MG/2 ML VIAL ONE (14:59)
[2025-02-08] MEDS: SODIUM CHLORIDE 0.9% 100 ML with ceFAZolin 2,000 MG IV ONE (15:03)
[2025-02-08] MEDS ORDERED: NALOXONE 0.4 MG/ML 1 ML VIAL IV PRN (16:14)
[2025-02-08] MEDS ORDERED: HYDROmorphone 0.5 MG/0.5 ML SYRINGE IVP PRN (16:14)
[2025-02-08] MEDS ORDERED: ONDANSETRON 4 MG/2 ML VIAL IVP PRN (16:14)
--- NOTE | 2025-02-08 16:14 | P.OP ---
Date of Procedure: 02/08/25 Preoperative Diagnosis: Right knee quadriceps tendon tear Postoperative Diagnosis: Right knee quadriceps tendon there Procedure(s) Performed: Right knee open quadriceps tendon repair Anesthesia: CHARLESA Surgeon: Norman Gorman Coat Baster #1: Tristian Lunsford Estimated Blood Loss (ml): 15 Pathology: none sent Condition: stable Disposition: PACU Indications for Procedure: 69-year-old patient seen with a right knee quadriceps tendon tear with history of previous total knee arthroplasty. After having treatment options discussed she elected to proceed with recommended open repair right knee quadriceps tendon tear. Consent is obtained. Operative Findings: See description of procedure Description of Procedure: Patient was taken to the operative suite. She received preoperative IV antibiotics. She underwent a general anesthetic by the department of anesthesia. Well-padded tourniquet placed proximal right lower extremity. Right lower extremity was prepped and draped in the normal sterile orthopedic fashion. We elevated the extremity insufflated the tourniquet to 300. I made an incision on the previous cicatrix sharply through skin. We immediately encountered hematoma and obvious complete tear of the quadriceps tendon. With the assistance of Calrito OROZCO evacuated the very large hematoma. The tear extended to involve the entire quadriceps tendon and also the medial retinaculum and medial capsule area. I removed some abnormal looking torn tissue. I irrigated the wound out copiously with pulse lavage mechanical irrigation. The total knee arthroplasty appeared stable. The tear involved soft tissue and was there was a good remanent cuff of tissue along the superior pole of the patella. I placed Irrisept in the knee. I now removed the Irrisept and explored the wound again noted a stable appearing total knee arthroplasty. I now began repairing the medial retinaculum utilizing #2 Ethibond suture. I now moved over to the quadriceps tendon. I repaired the quadriceps tendon utilizing #2 Ethibond in a modified Krakw stitch. I now used multiple simple interrupted sutures to augment the repair. I checked the repair pair with about 30 degrees of flexion and noted a stable repair. The collateral ligaments appeared stable. The tourniquet was released. Hemostasis achieved via electrocautery. Subcutaneous soft tissues repaired with 2-0 Vicryl. Skin approximated with skin armond. Sterile dressings were applied. We placed the extremity into a long knee immobilizer. The patient was awakened transferred to a bed and recovery in stable condition having tolerated procedure well. Carlito OROZCO assisted in all aspects of this procedure.
[2025-02-08] MEDS: HYDROmorphone 0.5 MG/0.5 ML SYRINGE IVP STA (17:00)
[2025-02-08] MEDS: HYDROmorphone 0.5 MG/0.5 ML SYRINGE IVP PRN (19:33)
[2025-02-08 20:44] LABS: Glucose,Whole Blood 295 mg/dL (70-110)
[2025-02-08] MEDS: SENNOSIDES-DOCUSATE SODIUM 1 EACH TAB PO SCH (21:07)
[2025-02-08] MEDS: ENOXAPARIN 30 MG/0.3 ML SYRINGE SQ SCH (21:08)
[2025-02-09 06:16] LABS: Basophils # (A) 0.1 k/uL (0-0.2); Basophils % (A) 1 %; Eosinophils % (A) 0 %; HCT 31.1 % (34.0-46.0); HGB 9.6 gm/dL (11.4-16.0); Hypochromasia Moderate; Lymphocytes # (A) 2.1 k/uL (1.0-4.8); Lymphocytes % (A) 11 %; MCH 24.5 pg (25.0-35.0); MCHC 30.9 g/dL (31.0-37.0); MCV 79.2 fL (80.0-100.0); Mean Platelet Volume 6.6; Monocytes # (A) 0.6 k/uL (0-1.0); Monocytes % (A) 3 %; Neutrophils # (A) 16.8 k/uL (1.3-7.7); Neutrophils % (A) 84 %; Platelet Count 635 k/uL (150-450); RBC 3.93 m/uL (3.80-5.40); RDW 14.4 % (11.5-15.5); WBC 19.9 k/uL (3.8-10.6)
[2025-02-09 06:20] LABS: Glucose,Whole Blood 149 mg/dL (70-110)
[2025-02-09 06:24] LABS: ALT 35 U/L (4-34); AST 18 U/L (14-36); African American GFR (CKD) >90 (>60 ml/min/1.73 sqM); Albumin 3.2 g/dL (3.5-5.0); Albumin/Globulin Ratio 1.2; Alkaline Phosphatase 199 U/L (38-126); Anion Gap 7 mmol/L; Blood Urea Nitrogen 12 mg/dL (7-17); Calcium 9.7 mg/dL (8.4-10.2); Carbon Dioxide 33 mmol/L (22-30); Chloride 96 mmol/L (98-107); Globulin 2.6 g/dL; Glucose 143 mg/dL (74-99); Non-African American GFR(CKD) >90 (>60 ml/min/1.73 sqM); Potassium 4.6 mmol/L (3.5-5.1); Sodium 136 mmol/L (137-145); Total Bilirubin 0.5 mg/dL (0.2-1.3); Total Protein 5.8 g/dL (6.3-8.2)
[2025-02-09] MEDS: MULTIVITAMINS, THERA 1 EACH TAB PO SCH (08:17)
--- NOTE | 2025-02-09 11:14 | P.PN ---
Subjective Progress Note Date: 02/09/25 69-year-old female with a PMH of obstructive sleep apnea with utilization of CPAP, hypothyroidism, peripheral neuropathy currently undergoing treatment for a suspected pneumonia, who is presenting from the orthopedic surgery office after she was evaluated this morning. She underwent a total knee arthroplasty in December 2024, and was noted to have fallen multiple times over the past week or so. Upon evaluation was determined that she had a tear involving her right quadriceps tendon and she should present to [facility] for further medical management with a plan for surgical intervention to occur on 02/08/25. She notes having had some cough as well as worsening dysuria and suprapubic tenderne ss. Patient reports absence of fever, chills, weight loss, chest pain, palpitations, diaphoresis, dyspnea, nausea, vomiting, constipation, diarrhea, abdominal pain, weakness, myalgia, dizziness and headache. Internal medicine was consulted for medical management. 02/07 - She is seen at bedside this morning, now on the fourth floor. She had no acute events overnight, and has no complaints this morning. Urine, blood, sputum culture all ordered, remain pending at this time. Labs this morning jaydon cating improvement in her leukocytosis. However worsening in her anemia. 02/08 - She is seen and examined at bedside this morning. She had no acute events overnight, and has no complaints morning. Continues to endorse some pain on the superior aspect as well as medial and lateral aspects of her right knee. 02/09 - She is seen and examined at bedside this morning. She had no acute events overnight. She underwent her surgery yesterday afternoon, without any complication. She has no acute complaints at this time. REVIEW OF SYSTEMS: Pertinent positives and negatives noted in HPI. Physical Exam: Vitals reviewed GENERAL: No acute distress. Well developed, well nourished. HEENT: Pupils are round and equally reacting to light. EOMI. No scleral icterus. Normocephalic, atraumatic. No pharyngeal erythema. No thyromegaly. CARDIOVASCULAR: S1 and S2 present. No murmurs, rubs, or gallops. PULMONARY: Chest is clear to auscultation, no wheezing, rhonchi, or crackles. ABDOMEN: Soft, nontender, nondistended, normoactive bowel sounds. No palpable organomegaly. suprapubic tenderness. MUSCULOSKELETAL: No apparent joint swelling and deformities. EXTREMITIES: No apparent cyanosis, clubbing, or pedal edema. Right knee tender to palpation on the superior aspect, as well as the medial and lateral aspects. 1+ pitting edema of the right lower extremity. NEUROLOGICAL: The patient is alert and oriented x3, Gross neurological examination did not reveal any focal deficits. 5/5 strength bilateral UE and LE. SKIN: No apparent rashes. Data Received Today: Labs: WBCs 19.9, hemoglobin 9.6, hematocrit 31.1, platelets 635; sodium 136, potassium 4.6, BUN 12, creatinine 0.65, calcium 9.7, total bilirubin 0.5, AST 18, ALT 35, alkaline phosphatase 199 Imagining: No new imaging today Assessment and plan 69-year-old female with a PMH of obstructive sleep apnea with utilization of CPAP, hypothyroidism, peripheral neuropathy currently undergoing treatment for a suspected pneumonia and UTI, who is presenting from the orthopedic surgery office after she was evaluated this morning and found to have a tear in her right quadriceps tendon. #community-acquired pneumonia -Antibiotics discontinued; received in total 6-7 days of antibiotics including oral antibiotics prior to arrival and IV antibiotics during admission -Blood cultures preliminarily negative -Sputum culture ordered, -Legionella ordered, #Possible UTI -History of MDRO UTIs -No longer complaining of suprapubic tenderness and dysuria -Urine culture preliminarily negative -Antibiotics discontinued; received in total 6-7 days of antibiotics including oral antibiotics prior to arrival and IV antibiotics during admission -Orthopedic surgery team may consider the insertion of Espinzoa catheter prior to surgery #Leukocytosis, possibly reactive -Continue to monitor CBC #Microcytic anemia, with history of iron deficiency -Continue to monitor CBC, hemoglobin this morning 8.6 as compared to 10.1 yesterday -Per orthopedic surgery team, may transfuse 1 unit PRBC prior to surgery -Transfuse for Hgb <7 -Iron studies ordered, currently pending along with reticulocyte count #Thrombocytosis, likely reactive -Continue to monitor CBC #Hyponatremia -Continue to monitor CMP #Transaminitis, possibly reactive, improving -No endorse right upper quadrant pain -Continue to monitor CMP Chronic Medical Conditions #Cjm-heourll-rajtnhtkw type 2 diabetes mellitus -Accu-Cheks -Hemoglobin A1c 7.2 -Sliding scale initiated -Monitor for hypoglycemia #Hypertension -Resume home Norvasc 5 mg daily #Hyperlidemia -Resume home Atorvastatin 20 mg daily #Hypothyroidism -Resume home Synthroid 50 mcg daily #GERD -Resume home pantoprazole 40mg daily #Anxiety/Depression -Resume home medications #Right quadriceps tendon repair -Pain management and DVT prophylaxis per primary surgical team -Likely surgery on 02/08/2025 NSQIP risk assessment: -Any complication: 4.2% -Cardiac complication 0.2% -Risk of : 0.6% Patient is medically optimized for discharge at this time. Will continue to follow for the duration of her stay. Thank you very much for this consult. DVT ppx: Per the surgery team Code status: Full code F: LR 75 cc/h E: Replete as needed N: Regular diet A: Ambulatory at baseline Anticipated discharge place: Home Anticipated discharge time: Pending clinical course Dictation was produced using [employer] dictation software. please excuse any grammatical, word or spelling errors. Deniz Villareal MD PGY-1 IM I saw and evaluated the patient during the fung and critical portions of this encounter, and discussed the case in detail with the resident author of this note, I agree with the Assessment and Plan, and my changes, if any, are highlighted in blue. Objective - Vital Signs Vital signs: Vital Signs Temp 97.8 F 02/09/25 01:36 Pulse 91 02/09/25 01:36 Resp 16 02/09/25 01:36 BP 126/75 02/09/25 01:36 Pulse Ox 95 02/09/25 01:36 FiO2 Intake & Output 02/08/25 02/09/25 02/09/25 18:59 06:59 18:59 Intake Total 1150 Output Total 540 1800 Balance 610 -1800 Intake: IV 1050 Oral 100 Output: Urine 525 1800 Estimated Blood Loss 15 Other: Voiding Method Bedside Commode Indwelling Catheter - Labs CBC & Chem 7: 02/09/25 05:10 02/09/25 05:10 Labs: Abnormal Lab Results - Last 24 Hours (Table) 02/08/25 02/08/25 02/08/25 Range/Units 04:23 09:27 11:13 WBC 14.91 H 15.0 H (4.50-10.00) X 10*3/uL RBC 3.65 L (4.10-5.20) X 10*6/uL Hgb 9.1 L 9.3 L (12.0-15.0) g/dL Hct 29.6 L 30.0 L (37.2-46.3) % MCV 78.5 L (80.0-100.0) fL MCH 24.9 L 24.2 L (27.0-32.0) pg MCHC 30.7 L 30.8 L (32.0-37.0) g/dL Plt Count 468 H 526 H (140-440) X 10*3/uL MPV 8.8 L (9.5-12.2) FL Immature Gran # 0.20 H (0.00-0.04) X 10*3/uL Neutrophils # 10.85 H 11.7 H (1.80-7.70) X 10*3/uL Eosinophils # 0.42 H (0.04-0.35) X 10*3/uL Sodium (137-145) mmol/L Chloride (98-107) mmol/L Carbon Dioxide (22-30) mmol/L Glucose (74-99) mg/dL POC Glucose (mg/dL) 146 H (70-110) mg/dL ALT (4-34) U/L Alkaline Phosphatase (38-126) U/L Total Protein (6.3-8.2) g/dL Albumin (3.5-5.0) g/dL 02/08/25 02/08/25 02/09/25 Range/Units 14:24 20:43 05:10 WBC 19.9 H (4.50-10.00) X 10*3/uL RBC (4.10-5.20) X 10*6/uL Hgb 9.6 L (12.0-15.0) g/dL Hct 31.1 L (37.2-46.3) % MCV 79.2 L (80.0-100.0) fL MCH 24.5 L (27.0-32.0) pg MCHC 30.9 L (32.0-37.0) g/dL Plt Count 635 H (140-440) X 10*3/uL MPV (9.5-12.2) FL Immature Gran # (0.00-0.04) X 10*3/uL Neutrophils # 16.8 H (1.80-7.70) X 10*3/uL Eosinophils # (0.04-0.35) X 10*3/uL Sodium (137-145) mmol/L Chloride (98-107) mmol/L Carbon Dioxide (22-30) mmol/L Glucose (74-99) mg/dL POC Glucose (mg/dL) 123 H 295 H (70-110) mg/dL ALT (4-34) U/L Alkaline Phosphatase (38-126) U/L Total Protein (6.3-8.2) g/dL Albumin (3.5-5.0) g/dL 02/09/25 02/09/25 Range/Units 05:10 06:18 WBC (4.50-10.00) X 10*3/uL RBC (4.10-5.20) X 10*6/uL Hgb (12.0-15.0) g/dL Hct (37.2-46.3) % MCV (80.0-100.0) fL MCH (27.0-32.0) pg MCHC (32.0-37.0) g/dL Plt Count (140-440) X 10*3/uL MPV (9.5-12.2) FL Immature Gran # (0.00-0.04) X 10*3/uL Neutrophils # (1.80-7.70) X 10*3/uL Eosinophils # (0.04-0.35) X 10*3/uL Sodium 136 L (137-145) mmol/L Chloride 96 L (98-107) mmol/L Carbon Dioxide 33 H (22-30) mmol/L Glucose 143 H (74-99) mg/dL POC Glucose (mg/dL) 149 H (70-110) mg/dL ALT 35 H (4-34) U/L Alkaline Phosphatase 199 H (38-126) U/L Total Protein 5.8 L (6.3-8.2) g/dL Albumin 3.2 L (3.5-5.0) g/dL Microbiology - Last 24 Hours (Table) 02/06/25 14:05 Blood Culture - Preliminary Blood
--- NOTE | 2025-02-09 11:23 | P.PN ---
Subjective Progress Note Date: 02/09/25 Principal diagnosis: Right knee quadriceps tendon tear Patient was seen at bedside this morning sitting up in chair with legs elevated and knee immobilizer on to the right lower extremity in full extension with dressing present over the right anterior knee. Patient says she just finished working with PT/OT this morning and got up using a walker with the knee immobilizer on. Patient says she is in a decent mount of pain this morning. She says oral medication is helping somewhat. Patient denies any fevers/chills/nausea or vomiting or change in vision. Objective - Vital Signs Vital signs: Vital Signs Temp 97.9 F 02/09/25 06:58 Pulse 79 02/09/25 06:58 Resp 18 02/09/25 06:58 BP 119/72 02/09/25 06:58 Pulse Ox 95 02/09/25 06:58 FiO2 Intake & Output 02/08/25 02/09/25 02/09/25 18:59 06:59 18:59 Intake Total 1150 Output Total 540 1800 Balance 610 -1800 Intake: IV 1050 Oral 100 Output: Urine 525 1800 Estimated Blood Loss 15 Other: Voiding Method Bedside Commode Indwelling Catheter - Exam Right knee: Knee immobilizer on to right lower extremity. incision is clean, dry, and inta ct. The postop dressing is in good condition. There is minimal soft tissue swelling and ecchymosis surrounding the medial and lateral aspects of the incision. Calf is soft, no tenderness with palpation. Plantar flexion, dorsiflexion, EHL, FHL are intact. Sensory exam to light touch throughout the extremity is intact, dorsal pedis pulses 2+. - Labs CBC & Chem 7: 02/09/25 05:10 02/09/25 05:10 Labs: Abnormal Lab Results - Last 24 Hours (Table) 02/08/25 02/08/25 02/08/25 Range/Units 11:13 14:24 20:43 WBC (3.8-10.6) k/uL Hgb (11.4-16.0) gm/dL Hct (34.0-46.0) % MCV (80.0-100.0) fL MCH (25.0-35.0) pg MCHC (31.0-37.0) g/dL Plt Count (150-450) k/uL Neutrophils # (1.3-7.7) k/uL Sodium (137-145) mmol/L Chloride (98-107) mmol/L Carbon Dioxide (22-30) mmol/L Glucose (74-99) mg/dL POC Glucose (mg/dL) 146 H 123 H 295 H (70-110) mg/dL ALT (4-34) U/L Alkaline Phosphatase (38-126) U/L Total Protein (6.3-8.2) g/dL Albumin (3.5-5.0) g/dL 02/09/25 02/09/25 02/09/25 Range/Units 05:10 05:10 06:18 WBC 19.9 H (3.8-10.6) k/uL Hgb 9.6 L (11.4-16.0) gm/dL Hct 31.1 L (34.0-46.0) % MCV 79.2 L (80.0-100.0) fL MCH 24.5 L (25.0-35.0) pg MCHC 30.9 L (31.0-37.0) g/dL Plt Count 635 H (150-450) k/uL Neutrophils # 16.8 H (1.3-7.7) k/uL Sodium 136 L (137-145) mmol/L Chloride 96 L (98-107) mmol/L Carbon Dioxide 33 H (22-30) mmol/L Glucose 143 H (74-99) mg/dL POC Glucose (mg/dL) 149 H (70-110) mg/dL ALT 35 H (4-34) U/L Alkaline Phosphatase 199 H (38-126) U/L Total Protein 5.8 L (6.3-8.2) g/dL Albumin 3.2 L (3.5-5.0) g/dL Microbiology - Last 24 Hours (Table) 02/06/25 14:05 Blood Culture - Preliminary Blood Assessment and Plan Assessment: Right knee quadriceps tendon tear -Postop day 1 status post Right knee open quadriceps tendon repair Plan: 1. Right knee quadriceps tendon tear -surgery form yesterday, , 02/08/2025 Right knee open quadriceps tendon repair. Patient stable at bedside this morning with knee immobilizer on to right lower extremity. Dressing pr esent over the right anterior knee, appears to be clean, dry, intact. Continue to work with PT/OT daily. Pain medication as needed. Toe-touch weightbearing right lower extremity with knee immobilizer on in full extension at all times. Case management working on rehab placement. We will continue to follow patient during stay in hospital. Plan for discharge to rehab likely on 02/12/2025. 2. Appreciate medical management 3. Pain management - norco 4. DVT prophylaxis - lovenox 5. GI Prophylaxis - senna; protonix 6. PT/OT -toe-touch weightbearing right lower extremity with knee immobilizer on and full extension at all times and use of walker with assistance 7 Encourage incentive spirometer use 8. Discharge planning - Plan for discharge to rehab likely on 02/12/2025. Time with Patient: Less than 30
[2025-02-09 11:36] LABS: Glucose,Whole Blood 220 mg/dL (70-110)
[2025-02-09 16:34] LABS: Glucose,Whole Blood 169 mg/dL (70-110)
[2025-02-09 21:07] LABS: Glucose,Whole Blood 245 mg/dL (70-110)
[2025-02-10 06:36] LABS: Glucose,Whole Blood 151 mg/dL (70-110)
[2025-02-10 06:50] LABS: African American GFR (CKD) >90 (>60 ml/min/1.73 sqM); Anion Gap 3 mmol/L; Blood Urea Nitrogen 12 mg/dL (7-17); Calcium 8.9 mg/dL (8.4-10.2); Carbon Dioxide 34 mmol/L (22-30); Chloride 97 mmol/L (98-107); Glucose 138 mg/dL (74-99); Non-African American GFR(CKD) >90 (>60 ml/min/1.73 sqM); Potassium 4.4 mmol/L (3.5-5.1); Sodium 134 mmol/L (137-145)
--- NOTE | 2025-02-10 11:26 | P.PN ---
Subjective Progress Note Date: 02/10/25 Principal diagnosis: Right knee quadriceps tendon tear, history of right total knee arthroplasty, other medical comorbidities Patient evaluated at bedside, she is resting in her hospital bed. Knee immobilizer is in position with the leg. Urinary catheter remains in place. She does admit to generalized discomfort to the right knee. She has no headaches, chest pain, shortness of breath, nausea or vomiting at this time. Objective - Vital Signs Vital signs: Vital Signs Temp 98.1 F 02/10/25 07:10 Pulse 86 02/10/25 07:10 Resp 17 02/10/25 07:10 BP 132/79 02/10/25 07:10 Pulse Ox 95 02/10/25 07:10 FiO2 Intake & Output 02/09/25 02/10/25 02/10/25 18:59 06:59 18:59 Intake Total 600 1620 Output Total 700 1140 Balance -100 480 Intake: Oral 600 1620 Output: Urine 700 1140 Straight 300 Uretheral (Espinoza) 400 Other: Voiding Method Indwelling Catheter Bedside Commode Indwelling Catheter - Exam Right lower extremity: Knee immobilizer is in good position and condition, Timoteo bandage remains in good position and condition. No significant swelling appreciated in the foot/ankle. Plantarflexion, dorsiflexion, EHL, FHL are intact. Calf is soft, no tenderness with palpation. Sensory exam to light touch is intact throughout the extremity. Dorsalis pedis pulses 2+ - Labs CBC & Chem 7: 02/09/25 05:10 02/10/25 06:14 Labs: Abnormal Lab Results - Last 24 Hours (Table) 02/09/25 02/09/25 02/09/25 Range/Units 11:34 16:30 21:06 Sodium (137-145) mmol/L Chloride (98-107) mmol/L Carbon Dioxide (22-30) mmol/L Glucose (74-99) mg/dL POC Glucose (mg/dL) 220 H 169 H 245 H (70-110) mg/dL 02/10/25 02/10/25 Range/Units 06:14 06:34 Sodium 134 L (137-145) mmol/L Chloride 97 L (98-107) mmol/L Carbon Dioxide 34 H (22-30) mmol/L Glucose 138 H (74-99) mg/dL POC Glucose (mg/dL) 151 H (70-110) mg/dL Microbiology - Last 24 Hours (Table) 02/06/25 16:12 Urine Culture - Final Urine,Voided Crista sp,not albicans/galbr 02/06/25 14:05 Blood Culture - Preliminary Blood Assessment and Plan Assessment: Postoperative day #2 status post open quadriceps tendon repair Right knee quadriceps tendon tear Status post recent falls History of right total knee arthroplasty Leukocytosis Possible UTI Possible pneumonia Multiple medical comorbidities Plan: Pain control, continue current medications Nonweightbearing right lower extremity. Knee immobilizer to be utilized at all times, leg must remain in full extension DC urinary catheter, monitor for urinary retention Regular diet GI DVT prophylaxis, aspirin 81 mg twice daily PT/OT evaluation Other medical recommendations appreciated Discharge planning: Anticipate discharge to subacute rehab on 02/12/2025 Time with Patient: Less than 30
[2025-02-10 12:21] LABS: Glucose,Whole Blood 149 mg/dL (70-110)
[2025-02-10] MEDS: SODIUM CHLORIDE 0.9% 1,000 ML IV ONE (13:30)
--- NOTE | 2025-02-10 13:39 | P.PN ---
Subjective Progress Note Date: 02/10/25 69-year-old female with a PMH of obstructive sleep apnea with utilization of CPAP, hypothyroidism, peripheral neuropathy currently undergoing treatment for a suspected pneumonia, who is presenting from the orthopedic surgery office after she was evaluated this morning. She underwent a total knee arthroplasty in December 2024, and was noted to have fallen multiple times over the past week or so. Upon evaluation was determined that she had a tear involving her right quadriceps tendon and she should present to [facility] for further medical management with a plan for surgical intervention to occur on 02/08/25. She notes having had some cough as well as worsening dysuria and suprapubic tenderne ss. Patient reports absence of fever, chills, weight loss, chest pain, palpitations, diaphoresis, dyspnea, nausea, vomiting, constipation, diarrhea, abdominal pain, weakness, myalgia, dizziness and headache. Internal medicine was consulted for medical management. 02/07 - She is seen at bedside this morning, now on the fourth floor. She had no acute events overnight, and has no complaints this morning. Urine, blood, sputum culture all ordered, remain pending at this time. Labs this morning jaydon cating improvement in her leukocytosis. However worsening in her anemia. 02/08 - She is seen and examined at bedside this morning. She had no acute events overnight, and has no complaints morning. Continues to endorse some pain on the superior aspect as well as medial and lateral aspects of her right knee. 02/09 - She is seen and examined at bedside this morning. She had no acute events overnight. She underwent her surgery yesterday afternoon, without any complication. She has no acute complaints at this time. 02/10 - She is seen and examined at bedside this morning. She had no acute events overnight and has no acute concerns at this time. REVIEW OF SYSTEMS: Pertinent positives and negatives noted in HPI. Physical Exam: Vitals reviewed GENERAL: No acute distress. Well developed, well nourished. HEENT: Pupils are round and equally reacting to light. EOMI. No scleral icterus. Normocephalic, atraumatic. No pharyngeal erythema. No thyromegaly. CARDIOVASCULAR: S1 and S2 present. No murmurs, rubs, or gallops. PULMONARY: Chest is clear to auscultation, no wheezing, rhonchi, or crackles. ABDOMEN: Soft, nontender, nondistended, normoactive bowel sounds. No palpable organomegaly. MUSCULOSKELETAL: No apparent joint swelling and deformities. EXTREMITIES: No apparent cyanosis, clubbing, or pedal edema. Right knee tender to palpation on the superior aspect, as well as the medial and lateral aspects. 1+ pitting edema of the right lower extremity. NEUROLOGICAL: The patient is alert and oriented x3, Gross neurological examination did not reveal any focal deficits. 5/5 strength bilateral UE and LE. SKIN: No apparent rashes. Data Received Today: Labs: WBCs 19.9, hemoglobin 9.6, hematocrit 31.1, platelets 635; sodium 136, potassium 4.6, BUN 12, creatinine 0.65, calcium 9.7, total bilirubin 0.5, AST 18, ALT 35, alkaline phosphatase 199 Imagining: No new imaging today Assessment and plan 69-year-old female with a PMH of obstructive sleep apnea with utilization of CPAP, hypothyroidism, peripheral neuropathy currently undergoing treatment for a suspected pneumonia and UTI, who is presenting from the orthopedic surgery office after she was evaluated this morning and found to have a tear in her right quadriceps tendon. #community-acquired pneumonia -Antibiotics discontinued; received in total 6-7 days of antibiotics including oral antibiotics prior to arrival and IV antibiotics during admission -Blood cultures preliminarily negative -Sputum culture ordered, currently pending -Legionella ordered, currently pending #Possible UTI -History of MDRO UTIs -No longer complaining of suprapubic tenderness and dysuria -Urine culture positive for Crista species, not albicans/glabrata - awaiting final culture -Antibiotics discontinued; received in total 6-7 days of antibiotics including oral antibiotics prior to arrival and IV antibiotics during admission -Orthopedic surgery team may consider the insertion of Espinoza catheter prior to surgery #Leukocytosis, possibly reactive -Continue to monitor CBC #Microcytic anemia, with history of iron deficiency -Continue to monitor CBC, hemoglobin this morning 8.6 as compared to 10.1 yesterday -Per orthopedic surgery team, may transfuse 1 unit PRBC prior to surgery -Transfuse for Hgb <7 -Iron studies ordered, currently pending along with reticulocyte count #Thrombocytosis, likely reactive -Continue to monitor CBC #Hyponatremia -Continue to monitor CMP #Transaminitis, possibly reactive, improving -No endorse right upper quadrant pain -Continue to monitor CMP #Metabolic alkalosis -Maintenance fluids of LR at 75 cc/h discontinued today -Giving 1 L normal saline bolus -Will reevaluate BMP tomorrow Chronic Medical Conditions #[id number] type 2 diabetes mellitus -Accu-Cheks -Hemoglobin A1c 7.2 -Sliding scale initiated -Monitor for hypoglycemia #Hypertension -Resume home Norvasc 5 mg daily #Hyperlidemia -Resume home Atorvastatin 20 mg daily #Hypothyroidism -Resume home Synthroid 50 mcg daily #GERD -Resume home pantoprazole 40mg daily #Anxiety/Depression -Resume home medications #Right quadriceps tendon repair -Pain management and DVT prophylaxis per primary surgical team -Likely surgery on 02/08/2025 NSQIP risk assessment: -Any complication: 4.2% -Cardiac complication 0.2% -Risk of : 0.6% Patient is medically optimized for discharge at this time. Will continue to follow for the duration of her stay. Thank you very much for this consult. DVT ppx: Per the surgery team Code status: Full code F: None E: Replete as needed N: Regular diet A: Ambulatory at baseline Anticipated discharge place: Subacute rehab Anticipated discharge time: 02/12/2025 Dictation was produced using [employer] dictation software. please excuse any grammatical, word or spelling errors. Deniz Villareal MD PGY-1 IM I saw and evaluated the patient during the fung and critical portions of this encounter, and discussed the case in detail with the resident author of this note, I agree with the Assessment and Plan, and my changes, if any, are highlighted in blue. Objective - Vital Signs Vital signs: Vital Signs Temp 98.3 F 02/10/25 01:06 Pulse 78 02/10/25 01:06 Resp 15 02/10/25 01:06 BP 151/71 02/10/25 01:06 Pulse Ox 93 L 02/10/25 01:06 FiO2 Intake & Output 02/09/25 02/10/25 02/10/25 18:59 06:59 18:59 Intake Total 600 1620 Output Total 700 1140 Balance -100 480 Intake: Oral 600 1620 Output: Urine 700 1140 Straight 300 Uretheral (Espinoza) 400 Other: Voiding Method Indwelling Catheter Bedside Commode Indwelling Catheter - Labs CBC & Chem 7: 02/09/25 05:10 02/10/25 06:14 Labs: Abnormal Lab Results - Last 24 Hours (Table) 02/09/25 02/09/25 02/09/25 Range/Units 11:34 16:30 21:06 Sodium (137-145) mmol/L Chloride (98-107) mmol/L Carbon Dioxide (22-30) mmol/L Glucose (74-99) mg/dL POC Glucose (mg/dL) 220 H 169 H 245 H (70-110) mg/dL 02/10/25 02/10/25 Range/Units 06:14 06:34 Sodium 134 L (137-145) mmol/L Chloride 97 L (98-107) mmol/L Carbon Dioxide 34 H (22-30) mmol/L Glucose 138 H (74-99) mg/dL POC Glucose (mg/dL) 151 H (70-110) mg/dL Microbiology - Last 24 Hours (Table) 02/06/25 16:12 Urine Culture - Final Urine,Voided Crista sp,not albicans/galbr 02/06/25 14:05 Blood Culture - Preliminary Blood
[2025-02-10 17:09] LABS: Glucose,Whole Blood 151 mg/dL (70-110)
[2025-02-10 19:57] LABS: Glucose,Whole Blood 165 mg/dL (70-110)
[2025-02-11 04:20] LABS: African American GFR (CKD) >90 (>60 ml/min/1.73 sqM); Anion Gap 10 mmol/L; Blood Urea Nitrogen 12 mg/dL (7-17); Calcium 9.5 mg/dL (8.4-10.2); Carbon Dioxide 28 mmol/L (22-30); Chloride 98 mmol/L (98-107); Glucose 136 mg/dL (74-99); Non-African American GFR(CKD) >90 (>60 ml/min/1.73 sqM); Sodium 136 mmol/L (137-145)
[2025-02-11 04:21] LABS: Potassium 4.4 mmol/L (3.5-5.1)
[2025-02-11 06:16] LABS: Glucose,Whole Blood 154 mg/dL (70-110)
[2025-02-11] MEDS: HYDROmorphone 0.5 MG/0.5 ML SYRINGE IVP PRN (09:34)
--- NOTE | 2025-02-11 10:39 | P.PN ---
Subjective Progress Note Date: 02/11/25 Principal diagnosis: Right knee quadriceps tendon tear, history of right total knee arthroplasty, other medical comorbidities Patient evaluated at bedside, she is resting in her hospital bed. Knee immobilizer is in position with the leg. Patient has been urinating with no difficulty since removal of the urinary catheter. She does complain of some constipation. She does admit to generalized discomfort to the right knee. She has no headaches, chest pain, shortness of breath, nausea or vomiting at this time. Objective - Vital Signs Vital signs: Vital Signs Temp 98.8 F 02/11/25 06:45 Pulse 91 02/11/25 06:45 Resp 17 02/11/25 06:45 BP 125/73 02/11/25 06:45 Pulse Ox 93 L 02/11/25 06:45 FiO2 Intake & Output 02/10/25 02/11/25 02/11/25 18:59 06:59 18:59 Intake Total 320 Output Total 2100 300 Balance -1780 -300 Intake: Oral 320 Output: Urine 2100 300 Straight 400 Uretheral (Espinoza) 400 Other: Voiding Method Bedside Commode Bedside Commode Indwelling Catheter - Exam Right lower extremity: Knee immobilizer is in good position and condition, Timoteo bandage remains in good position and condition. No significant swelling appreciated in the foot/ankle. Plantarflexion, dorsiflexion, EHL, FHL are intact. Calf is soft, no tenderness with palpation. Sensory exam to light touch is intact throughout the extremity. Dorsalis pedis pulses 2+ - Labs CBC & Chem 7: 02/09/25 05:10 02/11/25 03:12 Labs: Abnormal Lab Results - Last 24 Hours (Table) 02/10/25 02/10/25 02/10/25 Range/Units 12:20 17:08 19:55 Sodium (137-145) mmol/L Glucose (74-99) mg/dL POC Glucose (mg/dL) 149 H 151 H 165 H (70-110) mg/dL 02/11/25 02/11/25 Range/Units 03:12 06:15 Sodium 136 L (137-145) mmol/L Glucose 136 H (74-99) mg/dL POC Glucose (mg/dL) 154 H (70-110) mg/dL Assessment and Plan Assessment: Postoperative day #3 status post open quadriceps tendon repair Right knee quadriceps tendon tear Status post recent falls History of right total knee arthroplasty Leukocytosis Possible UTI Possible pneumonia Multiple medical comorbidities Plan: Pain control, continue current medications Nonweightbearing right lower extremity. Knee immobilizer to be utilized at all times, leg must remain in full extension Monitor surgical dressing, plan for dressing change on 02/11/2025 Regular diet GI DVT prophylaxis, aspirin 81 mg twice daily PT/OT evaluation Other medical recommendations appreciated Discharge planning: Anticipate discharge to subacute rehab on 02/12/2025 Time with Patient: Less than 30
[2025-02-11] MEDS ORDERED: MAGNESIUM HYDROXIDE 2,400 MG/30 ML CUP PO PRN (10:43)
[2025-02-11 11:07] LABS: Basophils # (A) 0.11 X 10*3/uL (0.00-0.10); Basophils % (A) 0.9 %; Eosinophils # (A) 0.62 X 10*3/uL (0.04-0.35); Eosinophils % (A) 4.9 %; HCT 31.7 % (37.2-46.3); HGB 9.5 g/dL (12.0-15.0); Lymphocytes # (A) 2.45 X 10*3/uL (0.90-5.00); Lymphocytes % (A) 19.3 %; MCH 24.7 pg (27.0-32.0); MCV 82.6 FL (80.0-97.0); Mean Platelet Volume 9.4 FL (9.5-12.2); Monocytes # (A) 0.62 X 10*3/uL (0.20-1.00); Monocytes % (A) 4.9 %; NRBC Per 100 WBC 0 X 10*3/uL (0.00-0.01); Neutrophils # (A) 8.82 X 10*3/uL (1.80-7.70); Neutrophils % (A) 69.4 %; Platelet Count 460 X 10*3/uL (140-440); RBC 3.84 X 10*6/uL (4.10-5.20); RDW 14.2 % (11.5-14.5)
[2025-02-11 11:52] LABS: Glucose,Whole Blood 141 mg/dL (70-110)
[2025-02-11] MEDS: polyethylene glycoL 3350 17 GM POWD.PACK PO SCH (12:02)
--- NOTE | 2025-02-11 14:34 | P.PN ---
Subjective Progress Note Date: 02/11/25 69-year-old female with a PMH of obstructive sleep apnea with utilization of CPAP, hypothyroidism, peripheral neuropathy currently undergoing treatment for a suspected pneumonia, who is presenting from the orthopedic surgery office after she was evaluated this morning. She underwent a total knee arthroplasty in December 2024, and was noted to have fallen multiple times over the past week or so. Upon evaluation was determined that she had a tear involving her right quadriceps tendon and she should present to [facility] for further medical management with a plan for surgical intervention to occur on 02/08/25. She notes having had some cough as well as worsening dysuria and suprapubic tenderne ss. Patient reports absence of fever, chills, weight loss, chest pain, palpitations, diaphoresis, dyspnea, nausea, vomiting, constipation, diarrhea, abdominal pain, weakness, myalgia, dizziness and headache. Internal medicine was consulted for medical management. 02/07 - She is seen at bedside this morning, now on the fourth floor. She had no acute events overnight, and has no complaints this morning. Urine, blood, sputum culture all ordered, remain pending at this time. Labs this morning jaydon cating improvement in her leukocytosis. However worsening in her anemia. 02/08 - She is seen and examined at bedside this morning. She had no acute events overnight, and has no complaints morning. Continues to endorse some pain on the superior aspect as well as medial and lateral aspects of her right knee. 02/09 - She is seen and examined at bedside this morning. She had no acute events overnight. She underwent her surgery yesterday afternoon, without any complication. She has no acute complaints at this time. 02/10 - She is seen and examined at bedside this morning. She had no acute events overnight and has no acute concerns at this time. 02/11 - No new complaints today. Alkalosis improved REVIEW OF SYSTEMS: Pertinent positives and negatives noted in HPI. Physical Exam: Vitals reviewed GENERAL: No acute distress. Well developed, well nourished. HEENT: Pupils are round and equally reacting to light. EOMI. No scleral icterus. Normocephalic, atraumatic. No pharyngeal erythema. No thyromegaly. CARDIOVASCULAR: S1 and S2 present. No murmurs, rubs, or gallops. PULMONARY: Chest is clear to auscultation, no wheezing, rhonchi, or crackles. ABDOMEN: Soft, nontender, nondistended, normoactive bowel sounds. No palpable organomegaly. MUSCULOSKELETAL: No apparent joint swelling and deformities. EXTREMITIES: No apparent cyanosis, clubbing, or pedal edema. Right knee tender to palpation on the superior aspect, as well as the medial and lateral aspects. 1+ pitting edema of the right lower extremity. NEUROLOGICAL: The patient is alert and oriented x3, Gross neurological examination did not reveal any focal deficits. 5/5 strength bilateral UE and LE. SKIN: No apparent rashes. Data Received Today: Bicarb today is 28 Assessment and plan 69-year-old female with a PMH of obstructive sleep apnea with utilization of CPAP, hypothyroidism, peripheral neuropathy currently undergoing treatment for a suspected pneumonia and UTI, who is presenting from the orthopedic surgery office after she was evaluated this morning and found to have a tear in her right quadriceps tendon. #community-acquired pneumonia -Antibiotics discontinued; received in total 6-7 days of antibiotics including oral antibiotics prior to arrival and IV antibiotics during admission -Blood cultures preliminarily negative -Sputum culture ordered, currently pending -Legionella ordered, currently pending #Possible UTI -History of MDRO UTIs -No longer complaining of suprapubic tenderness and dysuria -Urine culture positive for Crista species, not albicans/glabrata - awaiting final culture -Antibiotics discontinued; received in total 6-7 days of antibiotics including oral antibiotics prior to arrival and IV antibiotics during admission -Orthopedic surgery team may consider the insertion of Espinoza catheter prior to surgery #Leukocytosis, possibly reactive -Continue to monitor CBC #Microcytic anemia, with history of iron deficiency -Continue to monitor CBC, hemoglobin this morning 8.6 as compared to 10.1 yesterday -Per orthopedic surgery team, may transfuse 1 unit PRBC prior to surgery -Transfuse for Hgb <7 -Iron studies ordered, currently pending along with reticulocyte count #Thrombocytosis, likely reactive -Continue to monitor CBC #Hyponatremia -Continue to monitor CMP #Transaminitis, possibly reactive, improving -No endorse right upper quadrant pain -Continue to monitor CMP #Metabolic alkalosis -Maintenance fluids of LR at 75 cc/h discontinued today -Given 1 L normal saline bolus on 02/10 with resolution today of alkalosis -Will reevaluate BMP tomorrow Chronic Medical Conditions #Dia-bsyebba-kmykarrfo type 2 diabetes mellitus -Accu-Cheks -Hemoglobin A1c 7.2 -Sliding scale initiated -Monitor for hypoglycemia #Hypertension -Resume home Norvasc 5 mg daily #Hyperlidemia -Resume home Atorvastatin 20 mg daily #Hypothyroidism -Resume home Synthroid 50 mcg daily #GERD -Resume home pantoprazole 40mg daily #Anxiety/Depression -Resume home medications #Right quadriceps tendon repair -Pain management and DVT prophylaxis per primary surgical team -Likely surgery on 02/08/2025 NSQIP risk assessment: -Any complication: 4.2% -Cardiac complication 0.2% -Risk of : 0.6% Patient is medically optimized for discharge at this time. Will continue to follow for the duration of her stay. Thank you very much for this consult. DVT ppx: Per the surgery team Code status: Full code F: None E: Replete as needed N: Regular diet A: Ambulatory at baseline Anticipated discharge place: Subacute rehab Anticipated discharge time: 02/12/2025 Dictation was produced using [employer] dictation software. please excuse any grammatical, word or spelling errors. Objective - Vital Signs Vital signs: Vital Signs Temp 98.8 F 02/11/25 06:45 Pulse 91 02/11/25 09:20 Resp 17 02/11/25 09:20 BP 125/73 02/11/25 06:45 Pulse Ox 93 L 02/11/25 06:45 FiO2 Intake & Output 02/10/25 02/11/25 02/11/25 18:59 06:59 18:59 Intake Total 320 150 Output Total 2100 300 Balance -1780 -300 150 Intake: Oral 320 150 Output: Urine 2100 300 Straight 400 Uretheral (Espinoza) 400 Other: Voiding Method Bedside Commode Bedside Commode Bedside Commode Indwelling Catheter Diaper # Voids 3 - Labs CBC & Chem 7: 02/11/25 03:12 02/11/25 03:12 Labs: Abnormal Lab Results - Last 24 Hours (Table) 02/10/25 02/10/25 02/11/25 Range/Units 17:08 19:55 03:12 WBC (4.50-10.00) X 10*3/uL RBC (4.10-5.20) X 10*6/uL Hgb (12.0-15.0) g/dL Hct (37.2-46.3) % MCH (27.0-32.0) pg MCHC (32.0-37.0) g/dL Plt Count (140-440) X 10*3/uL MPV (9.5-12.2) FL Immature Gran # (0.00-0.04) X 10*3/uL Neutrophils # (1.80-7.70) X 10*3/uL Eosinophils # (0.04-0.35) X 10*3/uL Basophils # (0.00-0.10) X 10*3/uL Sodium 136 L (137-145) mmol/L Glucose 136 H (74-99) mg/dL POC Glucose (mg/dL) 151 H 165 H (70-110) mg/dL 02/11/25 02/11/25 02/11/25 Range/Units 03:12 06:15 11:51 WBC 12.70 H (4.50-10.00) X 10*3/uL RBC 3.84 L (4.10-5.20) X 10*6/uL Hgb 9.5 L (12.0-15.0) g/dL Hct 31.7 L (37.2-46.3) % MCH 24.7 L (27.0-32.0) pg MCHC 30.0 L (32.0-37.0) g/dL Plt Count 460 H (140-440) X 10*3/uL MPV 9.4 L (9.5-12.2) FL Immature Gran # 0.08 H (0.00-0.04) X 10*3/uL Neutrophils # 8.82 H (1.80-7.70) X 10*3/uL Eosinophils # 0.62 H (0.04-0.35) X 10*3/uL Basophils # 0.11 H (0.00-0.10) X 10*3/uL Sodium (137-145) mmol/L Glucose (74-99) mg/dL POC Glucose (mg/dL) 154 H 141 H (70-110) mg/dL
[2025-02-11 16:47] LABS: Glucose,Whole Blood 177 mg/dL (70-110)
[2025-02-11 20:58] LABS: Glucose,Whole Blood 175 mg/dL (70-110)
[2025-02-12 06:24] LABS: Glucose,Whole Blood 185 mg/dL (70-110)
[2025-02-12 08:29] LABS: BUN/Creat Ratio 16.56 Ratio (12.00-20.00); Blood Urea Nitrogen 14.9 mg/dL (9.0-27.0); Calcium 8.9 mg/dL (8.7-10.3); Carbon Dioxide 29.2 mmol/L (21.6-31.8); Chloride 100 mmol/L (96-109); Glucose 177 mg/dL (70-110); Magnesium 2.1 mg/dL (1.5-2.4); Potassium 4.6 mmol/L (3.5-5.5); Sodium 139 mmol/L (135-145)
[2025-02-12 08:33] VITALS: BP 132/81; PULSE 86; RESP 17; TEMP 97.5
--- NOTE | 2025-02-12 10:59 | P.PN ---
Subjective Progress Note Date: 02/12/25 Principal diagnosis: Right knee quadriceps tendon tear, history of right total knee arthroplasty, other medical comorbidities Patient evaluated at bedside, she is resting in her hospital bed. Knee immobilizer is in position with the leg. Continues to have no issues urinating, she did have a bowel movement yesterday.. She does admit to generalized discomfort to the right knee. She has no headaches, chest pain, shortness of breath, nausea or vomiting at this time. Objective - Vital Signs Vital signs: Vital Signs Temp 97.5 F L 02/12/25 07:05 Pulse 86 02/12/25 07:05 Resp 17 02/12/25 07:05 BP 132/81 02/12/25 07:05 Pulse Ox 96 02/12/25 07:05 FiO2 Intake & Output 02/11/25 02/12/25 02/12/25 18:59 06:59 18:59 Intake Total 150 250 Balance 150 250 Intake: Oral 150 250 Other: Voiding Method Bedside Commode Diaper # Voids 3 4 2 # Bowel Movements 1 1 - Exam Right lower extremity: Postop dressing was removed, armond are in good position condition. Minimal bruising and soft tissue swelling surrounding the knee.. No significant swelling appreciated in the foot/ankle. Plantarflexion, dorsiflexion, EHL, FHL are intact. Calf is soft, no tenderness with palpation. Sensory exam to light touch is intact throughout the extremity. Dorsalis pedis pulses 2+ - Labs CBC & Chem 7: 02/11/25 03:12 02/12/25 02:53 Labs: Abnormal Lab Results - Last 24 Hours (Table) 02/11/25 02/11/25 02/11/25 Range/Units 03:12 11:51 16:46 WBC 12.70 H (4.50-10.00) X 10*3/uL RBC 3.84 L (4.10-5.20) X 10*6/uL Hgb 9.5 L (12.0-15.0) g/dL Hct 31.7 L (37.2-46.3) % MCH 24.7 L (27.0-32.0) pg MCHC 30.0 L (32.0-37.0) g/dL Plt Count 460 H (140-440) X 10*3/uL MPV 9.4 L (9.5-12.2) FL Immature Gran # 0.08 H (0.00-0.04) X 10*3/uL Neutrophils # 8.82 H (1.80-7.70) X 10*3/uL Eosinophils # 0.62 H (0.04-0.35) X 10*3/uL Basophils # 0.11 H (0.00-0.10) X 10*3/uL Glucose (70-110) mg/dL POC Glucose (mg/dL) 141 H 177 H (70-110) mg/dL 02/11/25 02/12/25 02/12/25 Range/Units 20:57 02:53 06:23 WBC (4.50-10.00) X 10*3/uL RBC (4.10-5.20) X 10*6/uL Hgb (12.0-15.0) g/dL Hct (37.2-46.3) % MCH (27.0-32.0) pg MCHC (32.0-37.0) g/dL Plt Count (140-440) X 10*3/uL MPV (9.5-12.2) FL Immature Gran # (0.00-0.04) X 10*3/uL Neutrophils # (1.80-7.70) X 10*3/uL Eosinophils # (0.04-0.35) X 10*3/uL Basophils # (0.00-0.10) X 10*3/uL Glucose 177 H (70-110) mg/dL POC Glucose (mg/dL) 175 H 185 H (70-110) mg/dL Microbiology - Last 24 Hours (Table) 02/06/25 14:05 Blood Culture - Final Blood Assessment and Plan Assessment: Postoperative day #4 status post open quadriceps tendon repair Right knee quadriceps tendon tear Status post recent falls History of right total knee arthroplasty Leukocytosis Possible UTI Possible pneumonia Multiple medical comorbidities Plan: Pain control, plan for discharge on [place] along with multiple stool softeners Nonweightbearing right lower extremity. Knee immobilizer to be utilized at all times, leg must remain in full extension Dressing instructions were provided for discharge Regular diet GI DVT prophylaxis, aspirin 81 mg twice daily PT/OT evaluation Other medical recommendations appreciated Discharge planning: Stable for discharge to subacute rehab today Time with Patient: Less than 30
--- NOTE | 2025-02-12 11:07 | P.DS ---
Providers Date of admission: 02/06/25 15:27 Expected date of discharge: 02/12/25 Attending physician: Norman Gorman Consults: 02/06/25 14:59 Consult Physician Urgent Consulting Provider: Tommy Gomez Consult Reason/Comments: medical Management Do you want consulting provider notified?: Yes Primary care physician: Joaquin Villanueva MD Hospital Course: Date of admission: 02/06/2025 Date of discharge: 02/12/2025 Admission diagnosis: Right knee quadriceps tendon tear Discharge diagnosis: Status post open right knee quadriceps tendon repair Attending physician: Dr. Gorman Surgical procedures: Right knee quadriceps tendon repair Brief history: Patient is a 69-year-old female with a history of a previous right total knee arthroplasty that was done back in December 2024. Patient was evaluated in the outpatient setting on 02/06/2025 after sustaining a fall and injury to the right knee. It was determined at that time that patient had a quadriceps tendon tear to the right knee, she was directly admitted with plan for surgical intervention. At this point patient has failed conservative treatment measures and has opted to proceed with a elective right knee open quadriceps tendon repair. Hospital course: Details of patient's surgery can be found in operative report. Patient tolerated the procedure well and was subsequently transported to orthopedic floor. Patient's orthopeidc and medical care was provided daily. Patient had daily laboratory tests performed for evaluation of overall blood counts . Patient had daily physical therapy to include strengthening range of motion as well as education with walker ambulation. Patient was treated with Lovenox and aspirin for their postoperative DVT prophylaxis during their inpatient stay. Patient was noted to have a relatively uneventful postoperative course. Patient reported satisfactory pain control with oral pain medications by postoperative day 1. Patient showed satisfactory progress with physical therapy. Patient moved steadily through the program and had no difficulty meeting the goals by postoperative day 4. Given patient's otherwise satisfactory course and having met physical therapy goals, plan is to discharge patient subacute rehab on postoperative day 4. Discharge condition/disposition: Patient will be discharged home in stable condition. Discharge medications: Instructions are given on resumption of patient's normal daily medications per primary care recommendation, in addition patient will be prescribed Hinkley 5 mg / 325 mg, Duricef 500 mg, senna S, MiraLAX 17 g, aspirin 81 mg. Discharge instructions: 1. Wound care and infection precautions, keep incision dry and covered while showering, no lotions, creams, moisturizers. No soaking, tubs, pools, hottubs. Do not scrub over the incision. 2. Toe-touch weightbearing, knee immobilizer must be on at all times. Keep the knee in full extension 3. Ice and elevate when necessary. Do not exceed 20 minutes per hour with ice pack. 4. Utilize compression sleeve until seen at first follow up appointment. 5. Visiting nursing care. 6. Home physical therapy 7. Pain meds and anticoagulants per prescription. 8. Pain medication has potential to cause constipation. Increase oral fluid and fiber intake. Contact primary care provider if you have not had a bowel movement within 48 hours after discharge 9. No anti-inflammatory medication until discussed at first post operative visit, this including Motrin, Aleve, Mobic, Diclofenac. 10. Follow up in office at 2 weeks postop with Carlito Lunsford PA-C/Konstantin Aly 11. Follow up with your primary care doctor 7-10 days after discharge. 12. Contact [facility] with any questions, . Procedures: Right knee open quadriceps tendon repair Patient Condition at Discharge: Fair Plan - Discharge Summary New Discharge Prescriptions: New cefaDROXiL [Duricef] 500 mg PO Q12HR 5 Days #10 cap Sennosides/Docusate Sodium [Senna-S 8.6-50 mg Tablet] 2 each PO DAILY PRN #30 tablet PRN Reason: Constipation Aspirin [Adult Low Dose Aspirin EC] 81 mg PO BID #60 tab polyethylene glycoL 3350 [Miralax] 17 gm PO DAILY PRN #21 packet PRN Reason: Constipation HYDROcodone/APAP 5-325MG [Hinkley 5-325] 1 tab PO Q6HR PRN #28 tab PRN Reason: Pain No Action Levothyroxine Sodium [Synthroid] 50 mcg PO DAILY Atorvastatin [Lipitor] 20 mg PO HS lamoTRIgine [LaMICtal] 200 mg PO DAILY atenoloL 12.5 mg PO DAILY Omeprazole 20 mg PO DAILY LORazepam [Ativan] 0.25 mg PO DAILY amLODIPine [Norvasc] 5 mg PO DAILY 30 Days #30 tab haloperidoL [Haldol] 10 mg PO BID Diclofenac Sodium [Diclofenac Sodium 1%] 1 applic TOPICAL QID PRN PRN Reason: Pain DULoxetine HCL [Cymbalta] 40 mg PO BID Menthol [Biofreeze] 1 applic TOPICAL BID PRN PRN Reason: Pain Gabapentin/Lidocaine/Diclofenac 5%/5%/5% Gel 1 applic TOPICAL BID PRN PRN Reason: Pain Acetaminophen Tab [Tylenol] 650 mg PO TID PRN PRN Reason: Pain buPROPion XL [Wellbutrin XL] 300 mg PO DAILY clindamycin HCL 600 mg PO DIRECTED PRN PRN Reason: 30 min prior to dental appt Cyanocobalamin (Vitamin B-12) [Vitamin B-12] 1,000 mcg PO DAILY HYDROcodone/APAP 5-325MG [Hinkley 5-325] 1 tab PO BID PRN PRN Reason: Pain Ascorbic Acid [Vitamin C] 500 mg PO DAILY Levocetirizine Dihydrochloride [Xyzal] 5 mg PO DAILY Meloxicam [Mobic] 15 mg PO DAILY gemfibroziL [Lopid] 600 mg PO AC-BID Ferrous Sulfate [Iron (65 MG Elemental)] 325 mg PO DAILY Ammonium Lactate [Amlactin] 1 applic TOPICAL DAILY Albuterol Inhaler [Ventolin Hfa Inhaler] 2 puff INHALATION RT-QID PRN PRN Reason: Shortness Of Breath Triamcinolone 0.1% Cream [Kenalog 0.1% Cream] 1 applicatio TOPICAL BID PRN PRN Reason: Skin Irritation on arms/legs Aspirin [Adult Low Dose Aspirin EC] 81 mg PO DAILY Acetylcysteine 600mg Capsule 600 mg PO DAILY Buprenorphine [Butrans 15 MCG/HR] 1 patch TRANSDERM WEEKLY Capsaicin [Zostrix Hp] 1 applic TOPICAL BID Cefdinir [Omnicef] 300 mg PO BID Hydrocortisone Cream [Hydrocortisone 1% Cream] 1 applic TOPICAL DAILY PRN PRN Reason: Rash Sennosides [Senokot] 8.6 mg PO DAILY Discharge Medication List Levothyroxine Sodium [Synthroid] 50 mcg PO DAILY 06/01/15 [History] Atorvastatin [Lipitor] 20 mg PO HS 03/07/18 [History] lamoTRIgine [LaMICtal] 200 mg PO DAILY 04/06/19 [History] atenoloL 12.5 mg PO DAILY 12/22/20 [History] Omeprazole 20 mg PO DAILY 01/23/21 [History] Ascorbic Acid [Vitamin C] 500 mg PO DAILY 10/14/22 [History] Levocetirizine Dihydrochloride [Xyzal] 5 mg PO DAILY 11/20/22 [History] Meloxicam [Mobic] 15 mg PO DAILY 11/20/22 [History] Ferrous Sulfate [Iron (65 MG Elemental)] 325 mg PO DAILY 02/18/23 [History] LORazepam [Ativan] 0.25 mg PO DAILY 02/18/23 [History] gemfibroziL [Lopid] 600 mg PO AC-BID 02/18/23 [History] amLODIPine [Norvasc] 5 mg PO DAILY 30 Days #30 tab 02/23/23 [Rx] Ammonium Lactate [Amlactin] 1 applic TOPICAL DAILY 10/11/24 [History] DULoxetine HCL [Cymbalta] 40 mg PO BID 10/11/24 [History] Diclofenac Sodium [Diclofenac Sodium 1%] 1 applic TOPICAL QID PRN 10/11/24 [History] Menthol [Biofreeze] 1 applic TOPICAL BID PRN 10/11/24 [History] haloperidoL [Haldol] 10 mg PO BID 10/11/24 [History] Albuterol Inhaler [Ventolin Hfa Inhaler] 2 puff INHALATION RT-QID PRN 10/12/24 [History] Triamcinolone 0.1% Cream [Kenalog 0.1% Cream] 1 applicatio TOPICAL BID PRN 10/12/24 [History] Aspirin [Adult Low Dose Aspirin EC] 81 mg PO DAILY 12/13/24 [History] Acetaminophen Tab [Tylenol] 650 mg PO TID PRN 02/06/25 [History] Acetylcysteine 600mg Capsule 600 mg PO DAILY 02/06/25 [History] Buprenorphine [Butrans 15 MCG/HR] 1 patch TRANSDERM WEEKLY 02/06/25 [History] Capsaicin [Zostrix Hp] 1 applic TOPICAL BID 02/06/25 [History] Cefdinir [Omnicef] 300 mg PO BID 02/06/25 [History] Cyanocobalamin (Vitamin B-12) [Vitamin B-12] 1,000 mcg PO DAILY 02/06/25 [History] Gabapentin/Lidocaine/Diclofenac 5%/5%/5% Gel 1 applic TOPICAL BID PRN 02/06/25 [History] HYDROcodone/APAP 5-325MG [Hinkley 5-325] 1 tab PO BID PRN 02/06/25 [History] Hydrocortisone Cream [Hydrocortisone 1% Cream] 1 applic TOPICAL DAILY PRN 02/06/25 [History] Sennosides [Senokot] 8.6 mg PO DAILY 02/06/25 [History] buPROPion XL [Wellbutrin XL] 300 mg PO DAILY 02/06/25 [History] clindamycin HCL 600 mg PO DIRECTED PRN 02/06/25 [History] Aspirin [Adult Low Dose Aspirin EC] 81 mg PO BID #60 tab 02/12/25 [Rx] HYDROcodone/APAP 5-325MG [Hinkley 5-325] 1 tab PO Q6HR PRN #28 tab 02/12/25 [Rx] Sennosides/Docusate Sodium [Senna-S 8.6-50 mg Tablet] 2 each PO DAILY PRN #30 tablet 02/12/25 [Rx] cefaDROXiL [Duricef] 500 mg PO Q12HR 5 Days #10 cap 02/12/25 [Rx] polyethylene glycoL 3350 [Miralax] 17 gm PO DAILY PRN #21 packet 02/12/25 [Rx] Follow up Appointment(s)/Referral(s): Joaquin Villanueva MD [Primary Care Provider] - 1-2 days Tristian Lunsford PAC [[employer]] - 2 Weeks Activity/Diet/Wound Care/Special Instructions: Orthopedic discharge instructions: 1. Pain medication as needed 2. Continue stool softeners daily 3. Toe-touch weightbearing right lower extremity, knee immobilizer must be in place at all times. Keep leg in full extension 4. Okay to remove the knee immobilizer when showering, knee must remain in full extension. 5. Ice and elevate often 6. Aspirin 81 mg twice a day for DVT prophylaxis 7. Plan for follow[facility]up at [facility] 10 days for recheck Discharge Disposition: TRANSFER TO SNF/ECF
--- NOTE | 2025-02-12 11:13 | P.PN ---
Subjective Progress Note Date: 02/12/25 69-year-old female with a PMH of obstructive sleep apnea with utilization of CPAP, hypothyroidism, peripheral neuropathy currently undergoing treatment for a suspected pneumonia, who is presenting from the orthopedic surgery office after she was evaluated this morning. She underwent a total knee arthroplasty in December 2024, and was noted to have fallen multiple times over the past week or so. Upon evaluation was determined that she had a tear involving her right quadriceps tendon and she should present to [facility] for further medical management with a plan for surgical intervention to occur on 02/08/25. She notes having had some cough as well as worsening dysuria and suprapubic tenderne ss. Patient reports absence of fever, chills, weight loss, chest pain, palpitations, diaphoresis, dyspnea, nausea, vomiting, constipation, diarrhea, abdominal pain, weakness, myalgia, dizziness and headache. Internal medicine was consulted for medical management. 02/07 - She is seen at bedside this morning, now on the fourth floor. She had no acute events overnight, and has no complaints this morning. Urine, blood, sputum culture all ordered, remain pending at this time. Labs this morning jaydon cating improvement in her leukocytosis. However worsening in her anemia. 02/08 - She is seen and examined at bedside this morning. She had no acute events overnight, and has no complaints morning. Continues to endorse some pain on the superior aspect as well as medial and lateral aspects of her right knee. 02/09 - She is seen and examined at bedside this morning. She had no acute events overnight. She underwent her surgery yesterday afternoon, without any complication. She has no acute complaints at this time. 02/10 - She is seen and examined at bedside this morning. She had no acute events overnight and has no acute concerns at this time. 02/11 - No new complaints today. Alkalosis improved 02/12 - She is seen and examined at bedside this morning. No acute events overnight and no new complaints today. REVIEW OF SYSTEMS: Pertinent positives and negatives noted in HPI. Physical Exam: Vitals reviewed GENERAL: No acute distress. Well developed, well nourished. HEENT: Pupils are round and equally reacting to light. EOMI. No scleral icterus. Normocephalic, atraumatic. No pharyngeal erythema. No thyromegaly. CARDIOVASCULAR: S1 and S2 present. No murmurs, rubs, or gallops. PULMONARY: Chest is clear to auscultation, no wheezing, rhonchi, or crackles. ABDOMEN: Soft, nontender, nondistended, normoactive bowel sounds. No palpable organomegaly. MUSCULOSKELETAL: No apparent joint swelling and deformities. EXTREMITIES: No apparent cyanosis, clubbing, or pedal edema. Right knee tender to palpation on the superior aspect, as well as the medial and lateral aspects. 1+ pitting edema of the right lower extremity. NEUROLOGICAL: The patient is alert and oriented x3, Gross neurological examination did not reveal any focal deficits. 5/5 strength bilateral UE and LE. SKIN: No apparent rashes. Data Received Today: Labs: Imagining: No new imaging today Assessment and plan 69-year-old female with a PMH of obstructive sleep apnea with utilization of CPAP, hypothyroidism, peripheral neuropathy currently undergoing treatment for a suspected pneumonia and UTI, who is presenting from the orthopedic surgery office after she was evaluated this morning and found to have a tear in her right quadriceps tendon. #community-acquired pneumonia -Antibiotics discontinued; received in total 6-7 days of antibiotics including oral antibiotics prior to arrival and IV antibiotics during admission -Blood cultures negative -Sputum culture ordered, currently pending -Legionella ordered, currently pending #Possible UTI -History of MDRO UTIs -No longer complaining of suprapubic tenderness and dysuria -Urine culture positive for Crista species, not albicans/glabrata -Antibiotics discontinued; received in total 6-7 days of antibiotics including oral antibiotics prior to arrival and IV antibiotics during admission -Orthopedic surgery team may consider the insertion of Espinoza catheter prior to surgery #Leukocytosis, possibly reactive -Continue to monitor CBC #Microcytic anemia, with history of iron deficiency -Continue to monitor CBC -Transfuse for Hgb <7 -Iron studies showed iron 20, TIBC 196, 10.2% iron saturation, transferrin 141, ferritin 323; reticulocyte count 1.93 #Thrombocytosis, likely reactive -Continue to monitor CBC #Hyponatremia -Continue to monitor CMP #Transaminitis, possibly reactive, improving -No endorse right upper quadrant pain -Continue to monitor CMP #Metabolic alkalosis, improved -Continue to follow BMP Chronic Medical Conditions #Ofj-[id number] type 2 diabetes mellitus -Accu-Cheks -Hemoglobin A1c 7.2 -Sliding scale initiated -Monitor for hypoglycemia #Hypertension -Resume home Norvasc 5 mg daily #Hyperlidemia -Resume home Atorvastatin 20 mg daily #Hypothyroidism -Resume home Synthroid 50 mcg daily #GERD -Resume home pantoprazole 40mg daily #Anxiety/Depression -Resume home medications #Right quadriceps tendon repair -Pain management and DVT prophylaxis per primary surgical team -Likely surgery on 02/08/2025 NSQIP risk assessment: -Any complication: 4.2% -Cardiac complication 0.2% -Risk of : 0.6% Patient is medically optimized for discharge at this time. Will continue to follow for the duration of her stay. Thank you very much for this consult. DVT ppx: Per the surgery team Code status: Full code F: None E: Replete as needed N: Regular diet A: Ambulatory at baseline Anticipated discharge place: Subacute rehab Anticipated discharge time: 02/12/2025 Dictation was produced using [employer] dictation software. please excuse any grammatical, word or spelling errors. Deniz Villareal MD PGY-1 IM I saw and evaluated the patient during the fung and critical portions of this encounter, and discussed the case in detail with the resident author of this note, I agree with the Assessment and Plan, and my changes, if any, are highlighted in blue. Objective - Vital Signs Vital signs: Vital Signs Temp 97.6 F 02/11/25 20:08 Pulse 85 02/11/25 20:08 Resp 16 02/11/25 20:08 BP 116/73 02/11/25 20:08 Pulse Ox 96 02/11/25 20:08 FiO2 Intake & Output 02/11/25 02/12/25 02/12/25 18:59 06:59 18:59 Intake Total 150 Balance 150 Intake: Oral 150 Other: Voiding Method Bedside Commode Diaper # Voids 3 4 # Bowel Movements 1 - Labs CBC & Chem 7: 02/11/25 03:12 02/12/25 02:53 Labs: Abnormal Lab Results - Last 24 Hours (Table) 02/11/25 02/11/25 02/11/25 Range/Units 03:12 11:51 16:46 WBC 12.70 H (4.50-10.00) X 10*3/uL RBC 3.84 L (4.10-5.20) X 10*6/uL Hgb 9.5 L (12.0-15.0) g/dL Hct 31.7 L (37.2-46.3) % MCH 24.7 L (27.0-32.0) pg MCHC 30.0 L (32.0-37.0) g/dL Plt Count 460 H (140-440) X 10*3/uL MPV 9.4 L (9.5-12.2) FL Immature Gran # 0.08 H (0.00-0.04) X 10*3/uL Neutrophils # 8.82 H (1.80-7.70) X 10*3/uL Eosinophils # 0.62 H (0.04-0.35) X 10*3/uL Basophils # 0.11 H (0.00-0.10) X 10*3/uL POC Glucose (mg/dL) 141 H 177 H (70-110) mg/dL 02/11/25 02/12/25 Range/Units 20:57 06:23 WBC (4.50-10.00) X 10*3/uL RBC (4.10-5.20) X 10*6/uL Hgb (12.0-15.0) g/dL Hct (37.2-46.3) % MCH (27.0-32.0) pg MCHC (32.0-37.0) g/dL Plt Count (140-440) X 10*3/uL MPV (9.5-12.2) FL Immature Gran # (0.00-0.04) X 10*3/uL Neutrophils # (1.80-7.70) X 10*3/uL Eosinophils # (0.04-0.35) X 10*3/uL Basophils # (0.00-0.10) X 10*3/uL POC Glucose (mg/dL) 175 H 185 H (70-110) mg/dL Microbiology - Last 24 Hours (Table) 02/06/25 14:05 Blood Culture - Final Blood
[2025-02-12 12:15] LABS: Glucose,Whole Blood 112 mg/dL (70-110)
[2025-02-13] MEDS ORDERED: NON FORMULARY DRUG (Buprenorphine [Butrans 15 Mcg/Hr] 15 MCG/HOUR Patch) TRANSDERM SCH (09:00)
== END 2025-02-12 15:16 | DRG 500 ==
LOC: EC 12:03 → 4SSUR 15:27
PROVIDERS: ADMIT Orthopaedic Surgery; ATTEND Orthopaedic Surgery
PROC: 0LQL0ZZ Repair Right Upper Leg Tendon, Open Approach (ICD-10-PCS; principal; 2025-02-08 14:35)
DX: S76.111A Strain of right quadriceps muscle, fascia and tendon, initial encounter (principal); J18.9 Pneumonia, unspecified organism; E87.3 Alkalosis; E87.1 Hypo-osmolality and hyponatremia; E11.9 Type 2 diabetes mellitus without complications; F25.9 Schizoaffective disorder, unspecified; G40.909 Epilepsy, unspecified, not intractable, without status epilepticus; E03.9 Hypothyroidism, unspecified; I10 Essential (primary) hypertension; D50.9 Iron deficiency anemia, unspecified; N39.0 Urinary tract infection, site not specified; F31.9 Bipolar disorder, unspecified; Z79.890 Hormone replacement therapy; E78.5 Hyperlipidemia, unspecified; R29.6 Repeated falls; V48.4XXA Person boarding or alighting a car injured in noncollision transport accident, initial encounter; Y92.009 Unspecified place in unspecified non-institutional (private) residence as the place of occurrence of the external cause; F41.9 Anxiety disorder, unspecified; F90.9 Attention-deficit hyperactivity disorder, unspecified type; D75.839 Thrombocytosis, unspecified; I25.2 Old myocardial infarction; K21.9 Gastro-esophageal reflux disease without esophagitis; K59.00 Constipation, unspecified; Z79.1 Long term (current) use of non-steroidal anti-inflammatories (NSAID); Z79.82 Long term (current) use of aspirin; Z79.899 Other long term (current) drug therapy; Z96.651 Presence of right artificial knee joint
CPT/HCPCS: 36415; 71046; 80048; 80053; 81001; 82728; 83036; 83540; 83550; 83605; 83735; 84145; 84466; 84484; 85025; 85045; 85610; 85730; 87040; 87070; 87086; 87205; 93005; 96365; 96366; 96368; 99285

== ENCOUNTER 2025-05-31 08:48 | Emergency (ER) | payer MEDICARE, OTHER ==
--- NOTE | 2025-05-31 08:57 | ED ---
Fall HPI - General Stated Complaint: Fall Time Seen by Provider: 05/31/25 08:57 Source: patient, RN notes reviewed Mode of arrival: EMS Limitations: physical limitation - History of Present Illness Initial Comments: 69-year-old female presented the ER via EMS for evaluation status post fall. Patient reports she was attempting to enter the shower with an aide and accidentally slipped on the shower rug. Patient states she fell landing on her right knee. She denies any head injury, loss of consciousness or blood thinner use. Patient reports mild discomfort to right knee currently rating it a 2 out of 10. She denies any paresthesias to right lower extremity. Denies other injuries. Patient states she was unable to get up off of the floor and her caregiver could not lift her which prompted EMS to be contacted. Patient states she is 1 month status post right knee arthroplasty completed by Dr. Gorman and is currently undergoing occupational and physical therapy of her right knee as she has limited range of motion due to surgery. Patient denies any dizziness, lightheadedness, chest pain or shortness of breath prior to the fall. - Related Data Home Medications Medication Instructions Recorded Confirmed Levothyroxine Sodium [Synthroid] 50 mcg PO DAILY 06/01/15 02/06/25 Atorvastatin [Lipitor] 20 mg PO HS 03/07/18 02/06/25 lamoTRIgine [LaMICtal] 200 mg PO DAILY 04/06/19 02/06/25 atenoloL 12.5 mg PO DAILY 12/22/20 02/06/25 Omeprazole 20 mg PO DAILY 01/23/21 02/06/25 Ascorbic Acid [Vitamin C] 500 mg PO DAILY 10/14/22 02/06/25 Levocetirizine Dihydrochloride 5 mg PO DAILY 11/20/22 02/06/25 [Xyzal] Meloxicam [Mobic] 15 mg PO DAILY 11/20/22 02/06/25 Ferrous Sulfate [Iron (65 MG 325 mg PO DAILY 02/18/23 02/06/25 Elemental)] LORazepam [Ativan] 0.25 mg PO DAILY 02/18/23 02/06/25 gemfibroziL [Lopid] 600 mg PO AC-BID 02/18/23 02/06/25 Ammonium Lactate [Amlactin] 1 applic TOPICAL DAILY 10/11/24 02/06/25 DULoxetine HCL [Cymbalta] 40 mg PO BID 10/11/24 02/06/25 Diclofenac Sodium [Diclofenac 1 applic TOPICAL QID PRN 10/11/24 02/06/25 Sodium 1%] Menthol [Biofreeze] 1 applic TOPICAL BID PRN 10/11/24 02/06/25 haloperidoL [Haldol] 10 mg PO BID 10/11/24 02/06/25 Albuterol Inhaler [Ventolin Hfa 2 puff INHALATION RT-QID PRN 10/12/24 02/06/25 Inhaler] Triamcinolone 0.1% Cream [Kenalog 1 applicatio TOPICAL BID PRN 10/12/24 02/06/25 0.1% Cream] Acetaminophen Tab [Tylenol] 650 mg PO TID PRN 02/06/25 02/06/25 Acetylcysteine 600mg Capsule 600 mg PO DAILY 02/06/25 02/06/25 Buprenorphine [Butrans 15 MCG/HR] 1 patch TRANSDERM WEEKLY 02/06/25 02/06/25 Capsaicin [Zostrix Hp] 1 applic TOPICAL BID 02/06/25 02/06/25 Cyanocobalamin (Vitamin B-12) 1,000 mcg PO DAILY 02/06/25 02/06/25 [Vitamin B-12] Gabapentin/Lidocaine/Diclofenac 1 applic TOPICAL BID PRN 02/06/25 02/06/25 5%/5%/5% Gel HYDROcodone/APAP 5-325MG [Amity 1 tab PO BID PRN 02/06/25 02/06/25 5-325] Hydrocortisone Cream 1 applic TOPICAL DAILY PRN 02/06/25 02/06/25 [Hydrocortisone 1% Cream] Sennosides [Senokot] 8.6 mg PO DAILY 02/06/25 02/06/25 buPROPion XL [Wellbutrin XL] 300 mg PO DAILY 02/06/25 02/06/25 Previous Rx's Medication Instructions Recorded amLODIPine [Norvasc] 5 mg PO DAILY 30 Days #30 tab 02/23/23 Aspirin [Adult Low Dose Aspirin EC] 81 mg PO BID #60 tab 02/12/25 HYDROcodone/APAP 5-325MG [Amity 1 tab PO Q6HR PRN #28 tab 02/12/25 5-325] Sennosides/Docusate Sodium 2 each PO DAILY PRN #30 tablet 02/12/25 [Senna-S 8.6-50 mg Tablet] cefaDROXiL [Duricef] 500 mg PO Q12HR 5 Days #10 cap 02/12/25 polyethylene glycoL 3350 [Miralax] 17 gm PO DAILY PRN #21 packet 02/12/25 Allergies Allergy/AdvReac Type Severity Reaction Status Date / Time amoxicillin Allergy Rash/Hives Verified 05/31/25 09:05 codeine Allergy Unknown Verified 05/31/25 09:05 Penicillins Allergy Unknown Verified 05/31/25 09:05 Sulfa (Sulfonamide Allergy Unknown Verified 05/31/25 09:05 Antibiotics) sulfamethoxazole Allergy Rash/Hives Verified 05/31/25 09:05 [From Bactrim] thioridazine [From Mellaril] Allergy Unknown Verified 05/31/25 09:05 trimethoprim [From Bactrim] Allergy Rash/Hives Verified 05/31/25 09:05 Review of Systems ROS Statement: Those systems with pertinent positive or pertinent negative responses have been documented in the HPI. ROS Other: All systems not noted in ROS Statement are negative. Past Medical History Past Medical History: Chest Pain / Angina, Diabetes Mellitus, Eye Disorder, GERD/Reflux, Hyperlipidemia, Hypertension, Memory Impairment, Osteoarthritis (OA), Seizure Disorder, Sleep Apnea/CPAP/BIPAP, Thyroid Disorder Additional Past Medical History / Comment(s): pt daughter states pt no longer diabetic; neuropathy bilateral legs/feet, BETINA/uses CPAP, short term memory issues, past seizure many years ago associated with a psych medication, hypothyroid, sinus issues, varicose vein, stress incontinence/urgency, frequent UTIs, RLS, lightheaded/dizzy when rising at times, bilateral eye macular degeneration, hypothyroid. Last Myocardial Infarction Date:: 2016 History of Any Multi-Drug Resistant Organisms: VRE Date of last positivie culture/infection: 12/12/22 MDRO Source:: Urine Past Surgical History: Section, Orthopedic Surgery Additional Past Surgical History / Comment(s): D&C with hysteroscopy/colposcopy, surgery for deviated septum, EGD Past Anesthesia/Blood Transfusion Reactions: No Reported Reaction, Motion Sickness Smoking Status: Never smoker - Past Family History Father Family Medical History: CVA/TIA Additional Family Medical History / Comment(s): SMOKED AND ABUSED ETOH- AGE 78- FROM STROKE Mother Additional Family Medical History / Comment(s): CRONIC BRONCHITIS.REMOVED PART OF ONE LUNG d/t the bronchitis infection General Exam Limitations: no limitations General appearance: alert, in no apparent distress Head exam: Present: atraumatic, normocephalic, normal inspection Eye exam: Present: normal appearance, PERRL, EOMI Pupils: Present: normal accommodation Respiratory exam: Present: normal lung sounds bilaterally. Absent: respiratory distress, wheezes, rales, rhonchi, stridor Cardiovascular Exam: Present: regular rate, normal rhythm, normal heart sounds. Absent: systolic murmur, diastolic murmur, rubs, gallop, clicks GI/Abdominal exam: Present: soft, normal bowel sounds. Absent: distended, tenderness, guarding, rebound, rigid Extremities exam: Present: tenderness (Anterior right patella.), normal capillary refill (2+ bilateral DP pulses.), other (Limited extension of right knee. Vertical anterior surgical incision noted. No surrounding erythema, dehiscence, purulent drainage, warmth or edema. Abrasion noted anterior right knee) Neurological exam: Present: alert, oriented X3, CN II-XII intact Psychiatric exam: Present: normal affect, normal mood Skin exam: Present: warm, dry, intact, normal color. Absent: rash Course Vital Signs 05/31/25 05/31/25 08:49 10:42 Temperature 98.4 F 98.4 F Pulse Rate 74 77 Respiratory 18 18 Rate Blood Pressure 128/66 130/68 O2 Sat by Pulse 97 99 Oximetry Medical Decision Making - Medical Decision Making Was pt. sent in by a medical professional or institution (, PA, NEUROLOGY DIRECTOR, urgent care, hospital, or senior care...) When possible be specific @ -[No] Did you speak to anyone other than the patient for history (EMS, parent, family, police, friend...)? What history was obtained from this source @ -[No] Did you review nursing and triage notes (agree or disagree)? Why? @ -[I reviewed and agree with nursing and triage notes] Were old charts reviewed (outside hosp., previous admission, EMS record, old EKG, old radiological studies, urgent care reports/EKG's, senior care records)? Report findings @ -No old charts were reviewed Differential Diagnosis (chest pain, altered mental status, abdominal pain women, abdominal pain men, vaginal bleeding, weakness, fever, dyspnea, syncope, headache, dizziness, GI bleed, back pain, seizure, CVA, palpatations, mental health, musculoskeletal)? @ -Fracture, dislocation, contusion, hematoma, intracranial hemorrhage, concussion, abrasion, laceration this list does not like to be all-inclusive EKG interpreted by me (3pts min.). @ -None done X-rays interpreted by me (1pt min.). @ -Right knee x-ray interpreted by me negative for acute fractures or dislocations. Total right knee arthroplasty. Indentation noted to soft tissues distal femur. CT interpreted by me (1pt min.). @ -None done U/S interpreted by me (1pt. min.). @ -None done What testing was considered but not performed or refused? (CT, X-rays, U/S, labs)? Why? @ -None What meds were considered but not given or refused? Why? @ -Patient refused anagelsic medications Did you discuss the management of the patient with other professionals (professionals i.e. , PA, NEUROLOGY DIRECTOR, lab, RT, psych nurse, healthcare social worker, industrial gas servicer supervisor, teacher, drug abuse resistance education officer, piano case and bench assembler)? Give summary @ -No Was smoking cessation discussed for >3mins.? @ -No Was critical care preformed (if so, how long)? @ -No Were there social determinants of health that impacted care today? How? (Homelessness, low income, unemployed, alcoholism, drug addiction, t ransportation, low edu. Level, literacy, decrease access to med. care, group home, rehab)? @ -No Was there de-escalation of care discussed even if they declined (Discuss DNR or withdrawal of care, Hospice)? DNR status @ -No What co-morbidities impacted this encounter? (DM, HTN, Smoking, COPD, CAD, Cancer, CVA, ARF, Chemo, Hep., AIDS, mental health diagnosis, sleep apnea, morbid obesity)? @ -None Was patient admitted / discharged? Hospital course, mention meds given and route, prescriptions, significant lab abnormalities, going to OR and other pertinent info. @ -Discharge. 69-year-old female presented to ER via EMS for evaluation status post fall. Vital signs stable.Patient no signs of acute distress nontoxic- appearing. A and O x 3. Bilateral lower extremities neurovascularly intact. There is tenderness to anterior right patella with minor abrasion overlying. Well-healed surgical surgical incision without evidence of infection to anterior right knee. Patient has limited active extension of right knee. Patient reports this is chronic and she is currently in occupational/physical therapy for this since total knee arthroplasty 1 month prior. Tetanus up-to-date. Right knee x-ray showed uncomplicated right total knee arthroplasty with no acute fractures or dislocations. There is an indentation noted to soft tissues of distal femur this is believed to be due to chronic issue since knee arthroplasty. Patient refused analgesic medications. Upon reevaluation, patient educated on today's findings, all questions answered. Patient is eager for discharge. Patient ambulated to bathroom with walker, baseline, per INSURANCE INSTRUCTOR without difficulty. Patient will be discharged in stable condition advised to follow-up closely with PCP and orthopedics. Strict return parameters discussed. Patient verbally expressed understanding agreement care plan. Case discussed with ED attending, Dr. Delacruz. Undiagnosed new problem with uncertain prognosis? @ -No Drug Therapy requiring intensive monitoring for toxicity (Heparin, Nitro, Insulin, Cardizem)? @ -No Were any procedures done? @ -No Diagnosis/symptom? @ -Fall/abrasion/knee injury Acute, or Chronic, or Acute on Chronic? @ -Acute Uncomplicated (without systemic symptoms) or Complicated (systemic symptoms)? @ -Uncomplicated Side effects of treatment? @ -No Exacerbation, Progression, or Severe Exacerbation? @ -No Poses a threat to life or bodily function? How? (Chest pain, USA, SC, pneumonia, PE, COPD, DKA, ARF, appy, cholecystitis, CVA, Diverticulitis, Homicidal, Suicidal, threat to staff... and all critical care pts) @ -No - Radiology Data Radiology results: report reviewed, image reviewed Disposition Clinical Impression: Fall, Abrasion, Knee injury Disposition: HOME SELF-CARE Condition: Stable Instructions (If sedation given, give patient instructions): Knee Pain (ED) Additional Instructions: Follow-up closely with orthopedics. Return to the ER for any new or worsening concerns Is patient prescribed a controlled substance at d/c from ED?: No Referrals: None,Stated [Primary Care Provider] - 1-2 days KarNorman melissa DO [Doctor of Osteopathic Medicine] - 1-2 days Forms: PH Area PCPs Time of Disposition: 10:14
[2025-05-31 09:05] VITALS: RESP 18; TEMP 98.4
--- NOTE | 2025-05-31 09:30 | XR ---
EXAMINATION TYPE: XR knee complete RT DATE OF EXAM: 05/31/2025 9:17 AM COMPARISON: 12/18/2024 CLINICAL INDICATION: Female, 69 years old with history of pain s/p fall; PHH, pain TECHNIQUE: 3 views FINDINGS: Redemonstrated right total knee arthroplasty. Both distal femoral and proximal tibial com ponents of the prosthesis are well seated without periprosthetic fracture. Alignment grossly anatomic . There is an anterior soft tissue swelling present. Somewhat protuberant appearance to the soft tiss ue overlying the upper pole of the patella and loss of volume in the expected region of the distal qu adriceps. IMPRESSION: 1. Uncomplicated right total knee arthroplasty. 2. However, there is unusual contour to the soft tissues above the kneecap. Recommend clinical assess ment to ensure integrity of the extensor mechanism/quadriceps tendon. [facility], , 05/31/2025 9:28 AM
[2025-05-31 10:43] VITALS: BP 130/68; PULSE 77
== END 2025-05-31 10:50 | disposition home or self-care (01) ==
LOC: EC 08:48
DX: S80.211A Abrasion, right knee, initial encounter (principal); Z88.0 Allergy status to penicillin; Z88.8 Allergy status to other drugs, medicaments and biological substances; Z88.2 Allergy status to sulfonamides; Z88.5 Allergy status to narcotic agent; Z88.1 Allergy status to other antibiotic agents; W01.0XXA Fall on same level from slipping, tripping and stumbling without subsequent striking against object, initial encounter
CPT/HCPCS: 99283